=== PATIENT | male | born 1965 | race Two or more races ===

== ENCOUNTER 2016-03-26 09:27 | Inpatient (IN) | payer OTHER ==
[2016-03-26] MEDS ORDERED: ONDANSETRON 4 MG/2 ML VIAL ONE ×3 (09:47→17:05)
[2016-03-26] MEDS ORDERED: ONDANSETRON 4 MG/2 ML VIAL IVPUSH ONE ×2 (10:06→17:08)
[2016-03-26] MEDS ORDERED: SODIUM CHLORIDE 500 ML IV STA (10:08)
[2016-03-26] MEDS ORDERED: morphine CARPU-JECT 4 MG/1 ML DISP.SYRIN IVPUSH ONE ×3 (10:09→17:08)
[2016-03-26] MEDS ORDERED: morphine CARPU-JECT 4 MG/1 ML DISP.SYRIN ONE ×3 (10:11→17:09)
--- NOTE | 2016-03-26 10:31 | PDOC ---
History of Present Illness <ObedRon - Last Filed: 03/26/16 16:11> - General History Source: Patient Exam Limitations: No Limitations - History of Present Illness Initial Comments: 03/26/16 10:31 The patient is a 50 year old male with significant past medical history of hypertension, diabetes, CAD s/p CABG, and ESRD on dialysis () who presents today with nausea, vomiting, and diarrhea for 1 day. The patient reports that the nausea started yesterday and has been constant since. He reports multiple episodes of vomiting both yesterday and today with associated diarrhea that started this morning. The patient denies any blood in his vomit or stool. He reports associated abdominal pain localized to the suprapubic region that is sharp and constant in nature. His pain is non-radiating. The patient denies fevers but reports chills and night sweats last night. He denies any chest pain or shortness of breath. He denies any headache, sore throat, or cough. He denies any recent sick contacts, recent travels, or recent antibiotic use. The patient denies consuming new or unusual food. He has not taken anything for pain. PMD: Dr. Yamilka Hernandez <RegisHemalLatrice - Last Filed: 03/26/16 16:27> - General Chief Complaint: Pain, Acute Stated Complaint: NAUSEA/VOMITING Time Seen by Provider: 03/26/16 09:56 Past History - Past Medical History Anemia: Yes Asthma: No Cancer: No Cardiac Disorders: Yes CVA: No COPD: No CHF: Yes Dementia: No Diabetes: Yes Dialysis: Yes () GI Disorders: No Disorders: No HTN: Yes Hypercholesterolemia: Yes Liver Disease: No Suicide Attempt (Hx): No Seizures: No Thyroid Disease: No - Surgical History Abdominal Surgery: No Appendectomy: No Cardiac Surgery: Yes (DOUBLE BYPASS.) Cholecystectomy: No Lung Surgery: No Orthopedic Surgery: Yes (amputation of all toes on left foot) - Family Disease History Family Disease History: Diabetes: Mother, Heart Disease: Father - Immunization History Immunization Up to Date: Yes - Psycho/Social/Smoking Cessation Hx Anxiety: No Suicidal Ideation: No Smoking Status: No Smoking History: Former smoker Years of Tobacco Use: 0 Have you smoked in the past 12 months: No Number of Cigarettes Smoked Daily: 2 If you are a former smoker, when did you quit?: 1985 Cigars Per Day: 0 Information on smoking cessation initiated: No 'Breaking Loose' booklet given: 06/04/12 Hx Alcohol Use: No Drug/Substance Use Hx: No Substance Use Type: None Hx Substance Use Treatment: No <Ron Clay - Last Filed: 03/26/16 16:11> <RegisLatrice - Last Filed: 03/26/16 16:27> - Past Medical History Allergies/Adverse Reactions: Allergies Allergy/AdvReac Type Severity Reaction Status Date / Time No Known Drug Allergies Allergy Verified 03/26/16 09:41 Home Medications: Ambulatory Orders Aspirin [ASA -] 81 mg PO DAILY 11/13/14 Isosorbide Mononitrate [Imdur -] 30 mg PO DAILY 11/13/14 Lisinopril [Prinivil] 5 mg PO DAILY 11/13/14 Pantoprazole Sodium [Protonix] 20 mg PO BID #20 tablet. 02/13/15 Atorvastatin Ca [Lipitor] 80 mg PO HS tablet 12/22/15 Nifedipine ER [Procardia XL -] 60 mg PO DAILY tab.er.24 12/22/15 Albuterol 0.083% Nebulizer Apryl [Ventolin 0.083% Nebulizer Soln -] 1 amp NEB QID PRN 03/26/16 Bisacodyl [Laxative] 5 mg PO BID 03/26/16 Cyclobenzaprine HCl [Flexeril -] 5 mg PO TID 03/26/16 Daptomycin 500 mg IV ASDIR 03/26/16 Ferrous Sulfate 325 mg PO BID 03/26/16 Furosemide [Lasix] 80 mg PO DAILY 03/26/16 Hydralazine HCl [Apresoline -] 100 mg PO TID 03/26/16 Hydromorphone [Dilaudid -] 4 mg PO Q6H 03/26/16 Insulin Glargine,Hum.rec.anlog [Lantus (nf)] 15 units SQ HS 03/26/16 Lidocaine 5% Patch [Lidoderm Patch -] 1 patch TP DAILY 03/26/16 Magnesium Oxide 400 mg PO TID 03/26/16 Metoprolol Succinate [Toprol Xl] 100 mg PO DAILY 03/26/16 Nitroglycerin Sublingual [Nitrostat -] 0.4 mg SL PRN 03/26/16 Oxycodone HCl [Roxicodone -] 40 mg PO TID PRN MDD 4 03/26/16 Polyethylene Glycol 3350 [Gavilax] 17 gm PO HS 03/26/16 Sevelamer Carbonate [Renvela] 800 mg PO TID 03/26/16 Tamsulosin HCl [Flomax] 0.4 mg PO HS 03/26/16 Review of Systems - Review of Systems Able to Perform ROS?: Yes Comments:: 03/26/16 10:44 GENERAL/CONSTITUTIONAL: +Chills. No fever, no weakness. HEAD, EYES, EARS, NOSE AND THROAT: No change in vision. No ear pain or discharge. No sore throat. CARDIOVASCULAR: No chest pain or shortness of breath. RESPIRATORY: No cough, wheezing, or hemoptysis. GASTROINTESTINAL: +Abdominal pain, +nausea, +vomiting, +diarrhea. No constipation. GENITOURINARY: No dysuria, frequency, or change in urination. MUSCULOSKELETAL: No joint or muscle swelling or pain. No neck or back pain. SKIN: No rash NEUROLOGIC: No headache, vertigo, loss of consciousness, or change in strength/ sensation. ENDOCRINE: No increased thirst. No abnormal weight change. HEMATOLOGIC/LYMPHATIC: No anemia, easy bleeding, or history of blood clots. ALLERGIC/IMMUNOLOGIC: No hives or skin allergy. <Latrice Stacy - Last Filed: 03/26/16 16:27> *Physical Exam - Vital Signs Last Vital Signs Temp Pulse Resp BP Pulse Ox 97.9 F 82 18 196/101 96 03/26/16 09:39 03/26/16 09:39 03/26/16 09:39 03/26/16 09:39 03/26/16 09:39 <Ron Clay - Last Filed: 03/26/16 16:11> - Vital Signs Last Vital Signs Temp Pulse Resp BP Pulse Ox 97.9 F 82 18 196/101 96 03/26/16 09:39 03/26/16 09:39 03/26/16 09:39 03/26/16 09:39 03/26/16 09:39 - Physical Exam Comments: 03/26/16 10:44 GENERAL: Awake, alert, and fully oriented, in no acute distress HEAD: No signs of trauma EYES: PERRLA, EOMI, sclera anicteric, conjunctiva clear ENT: Auricles normal inspection, hearing grossly normal, nares patent, oropharynx clear without exudates. +Dry mucosa NECK: Normal ROM, supple, no lymphadenopathy, JVD, or masses LUNGS: Breath sounds equal, clear to auscultation bilaterally. No wheezes, and no crackles HEART: Regular rate and rhythm, normal S1 and S2, no murmurs, rubs or gallops ABDOMEN: +Diffuse tenderness to palpation, worse in right upper quadrant. No guarding, no rebound. Soft, normoactive bowel sounds. No masses. EXTREMITIES: Normal range of motion, no edema. No clubbing or cyanosis. No cords, erythema, or tenderness NEUROLOGICAL: Cranial nerves II through XII grossly intact. Normal speech, normal gait SKIN: Warm, Dry, normal turgor, no rashes or lesions noted. <Latrice Stacy - Last Filed: 03/26/16 16:27> Heart Score/ECG Review - ECG Intrepretation Comment:: 03/26/16 10:32 Vent rate: 84 bpm WI interval: 170ms QRS duration: 90ms Normal sinus rhythm Left axis deviation <Latrice Stacy - Last Filed: 03/26/16 16:27> ED Treatment Course - LABORATORY CBC & Chemistry Diagram: 03/26/16 10:16 03/26/16 10:16 - Medications Given in the ED: ED Medications Discontinued Medications Generic Name Dose Route Start Last Admin Trade Name Freq PRN Reason Stop Dose Admin Morphine Sulfate 4 mg 03/26/16 10:03/26/16 10:17 Morphine Injection - IVPUSH 03/26/16 10:10 4 mg ONCE ONE Administration Ondansetron HCl 4 mg 03/26/16 10:06 03/26/16 10:17 Zofran Injection IVPUSH 03/26/16 10:07 4 mg ONCE ONE Administration <Ron Clay - Last Filed: 03/26/16 16:11> - LABORATORY CBC & Chemistry Diagram: 03/26/16 10:16 03/26/16 10:16 - Medications Given in the ED: ED Medications Discontinued Medications Generic Name Dose Route Start Last Admin Trade Name Freq PRN Reason Stop Dose Admin Morphine Sulfate 4 mg 03/26/16 10:09 03/26/16 10:17 Morphine Injection - IVPUSH 03/26/16 10:10 4 mg ONCE ONE Administration Ondansetron HCl 4 mg 03/26/16 10:06 03/26/16 10:17 Zofran Injection IVPUSH 03/26/16 10:07 4 mg ONCE ONE Administration <Latrice Stacy - Last Filed: 03/26/16 16:27> Medical Decision Making - Medical Decision Making 03/26/16 12:22 50 yo M with pmhx of hypertension, diabetes, CAD s/p CABG, and ESRD on dialysis (//) who presents today with 1 day history of nausea, vomiting, and diarrhea. On exam, patients abdomen tender to palpation, especially on the right side, RUQ>RLQ. Will order US of gallbladder. If negative, will consider CT abdomen pelvis w/o contrast. 03/26/16 15:[address] Hernandez's office. 03/26/16 16:[address] Pickett covering for Dr. Hernandez. Patient will be admitted to Dr. Pickett service. Case discussed with Dr. Hurley covering for Dr. Yina Palomo. The patient has not had any recent abx (orally, IV, or with dialysis). <Latrice Satcy - Last Filed: 03/26/16 16:27> *DC/Admit/Observation/Transfer - Discharge Dispostion Admit: Yes <Ron Clay - Last Filed: 03/26/16 16:11> - Attestations Scribe Attestion: 03/26/16 10:32 Documentation prepared by Latrice Stacy, acting as vice president medical affairs for Ron Clay DO. <Latrice Stacy - Last Filed: 03/26/16 16:27> Diagnosis at time of Disposition: Acute gastroenteritis, Dehydration, ESRD on hemodialysis - Discharge Dispostion Condition at time of disposition: Improved - Referrals Referrals: Yamilka Hernandez MD [Primary Care Provider] -
--- NOTE | 2016-03-26 10:36 | CON.CARD ---
Consult Consult Specialty:: Cardiology - History of Present Illness History of Present Illness: The patient is a 50 year old male with significant past medical history of hypertension, diabetes, and ESRD on dialysis (//) who presents today with nausea, vomiting, and diarrhea for 1 day. The patient reports that the nausea started yesterday and has been constant since. He reports multiple episodes of vomiting both yesterday and today with associated diarrhea that started this morning. The patient denies any blood in his vomit or stool. He reports associated abdominal pain localized to the suprapubic region that is sharp and constant in nature. His pain is non-radiating. The patient denies fevers but reports chills and night sweats last night. He denies any chest pain or shortness of breath. He denies any headache, sore throat, or cough. He denies any recent sick contacts, recent travels, or recent antibiotic use. The patient denies consuming new or unusual food. He has not taken anything for pain. PMH This is a 50 year old male with a history of ESRD on HD Thu/Thu/Thu, CAD s/p CABG, chronic systolic/diastolic CHF (ECHO 06/2015: borderline reduced LVEF with borderline global hypokinesis; diastolic dysfunction), HTN, IDDM, PVD, osteomyelitis of the left foot s/p transmetatarsal amputation in May 2015 - History Source History Provided By: Patient, Medical Record - Past Medical History Cardio/Vascular: Yes: CAD, CHF (normal ejection fraction; poor LV compliance; no valvular abnormalities), HTN, Hyperlipdemia. No: AFIB, Aneurysm, Aortic Insufficiency, Aortic Stenosis, Deep Vein Thrombosis, VA, Mitral Insufficiency, Mitral Stenosis, Murmur, Pulmonary Hypertension, Other Gastrointestinal: Yes: GERD, GI Bleed. No: Ascites, Cancer, Constipation, Crohn 's Disease, Diverticulitis, Diverticulosis, Esophageal Varices, Gastritis, Hemorrhoids, Hiatal Hernia, Inflamatory Bowel Disease, Irritable Bowel Disease, Pancreatitis, Peptic Ulcer Disease, Ulcerative Colitis, Other Renal/: Yes: Renal Failure, Hemodialysis (ESRD on HD MWF via L arm AVF) Psych: Yes: Anxiety Musculoskeletal: Yes: Other (left metatarsal amputation). No: Bursitis, Chronic low back pain, Hemiparesis, Hemiplegia, Osteoarthritis, Paraplegia Rheumatology: Yes: Gout Endocrine: Yes: Diabetes Mellitus. No: Mickey's Disease, Naoma's Disease, Diabetes Insipidus, Hyperparathyroidism, Hyperthyroidism, Hypothyroidism, Osteopenia, SIADH, Other Additional Medical History: as above in HPI; L eye blindness; on renal transplant list at [facility]. bilateral detached retinas - Past Surgical History Past Surgical History: Yes: Amputation (Left Transmetatarsal), AV Fistula/Graft , CABG (05/2010), Stent (s/p cardiac cath with stent placement). No: None, AAA Repair, AICD, Appendectomy, Arthrosocopy, Bariatric Surgery, Breast Biopsy, Bypass, Carotid Endarterectomy, Cataract Removal, Cholecystectomy, Colectomy, Colonoscopy, Colostomy, Craniotomy, , Cystectomy, Hernia Repair, Hysterectomy, Ileal Conduit, Ileosotomy, Joint Replacement, Kidney Transplant, Laminectomy, Liver Transplant, Mastectomy, Nephrectomy, Oopherectomy, Orchiectomy, Permanent Pacemaker, Prostatectomy, Splenectomy, Thoracotomy, TURP , Tonsillectomy, Tubal Ligation, Upper Endoscopy, Valve Replacement, Vasectomy, Vein Stripping/Ligation - Alcohol/Substance Use Hx Alcohol Use: No History of Substance Use: reports: None - Smoking History Smoking history: Former smoker Have you smoked in the past 12 months: No Aproximately how many cigarettes per day: 2 If you are a former smoker, when did you quit?: 1984 - Social History Usual Living Arrangement: With Spouse ADL: Independent 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 History of Recent Travel: No Home Medications - Allergies Allergies/Adverse Reactions: Allergies Allergy/AdvReac Type Severity Reaction Status Date / Time No Known Drug Allergies Allergy Verified 03/26/16 09:41 - Home Medications Home Medications: Ambulatory Orders Aspirin [ASA -] 81 mg PO DAILY 11/13/14 Isosorbide Mononitrate [Imdur -] 30 mg PO DAILY 11/13/14 Lisinopril [Prinivil] 5 mg PO DAILY 11/13/14 Pantoprazole Sodium [Protonix] 20 mg PO BID #20 tablet.dr 02/13/15 Atorvastatin Ca [Lipitor] 80 mg PO HS tablet 12/22/15 Nifedipine ER [Procardia XL -] 60 mg PO DAILY tab.er.24 12/22/15 Albuterol 0.083% Nebulizer Apryl [Ventolin 0.083% Nebulizer Soln -] 1 amp NEB QID PRN 03/26/16 Bisacodyl [Laxative] 5 mg PO BID 03/26/16 Ferrous Sulfate 325 mg PO BID 03/26/16 Furosemide [Lasix] 80 mg PO DAILY 03/26/16 Hydralazine HCl [Apresoline -] 100 mg PO TID 03/26/16 Insulin Glargine,Hum.rec.anlog [Lantus (nf)] 15 units SQ HS 03/26/16 Magnesium Oxide 400 mg PO TID 03/26/16 Metoprolol Succinate [Toprol Xl] 100 mg PO DAILY 03/26/16 Oxycodone HCl [Roxicodone -] 40 mg PO TID PRN MDD 4 03/26/16 Sevelamer Carbonate [Renvela] 800 mg PO TID 03/26/16 Tamsulosin HCl [Flomax] 0.4 mg PO HS 03/26/16 Family Disease History - Family Disease History Family Disease History: Diabetes: Father, Mother, Other: Father, Mother Review of Systems - Review of Systems Constitutional: reports: No Symptoms Eyes: reports: No Symptoms HENT: reports: No Symptoms Neck: reports: No Symptoms Cardiovascular: reports: No Symptoms Gastrointestinal: reports: No Symptoms, Abdominal Pain, Nausea, Vomiting Genitourinary: reports: No Symptoms Breasts: reports: No Symptoms Reported Musculoskeletal: reports: No Symptoms Integumentary: reports: No Symptoms Neurological: reports: No Symptoms Endocrine: reports: No Symptoms Hematology/Lymphatic: reports: No Symptoms Psychiatric: reports: No Symptoms Vital Signs: Vital Signs Temperature 97.9 F 03/26/16 09:39 Pulse Rate 82 03/26/16 09:39 Respiratory Rate 18 03/26/16 09:39 Blood Pressure 196/101 03/26/16 09:39 O2 Sat by Pulse Oximetry (%) 96 03/26/16 09:39 Constitutional: Yes: Well Nourished, No Distress, Calm Eyes: Yes: WNL, Conjunctiva Clear, EOM Intact HENT: Yes: WNL, Atraumatic, Normocephalic Neck: Yes: WNL, Supple, Trachea Midline Respiratory: Yes: WNL, Regular, CTA Bilaterally Gastrointestinal: Yes: WNL, Normal Bowel Sounds Renal/: Yes: WNL Cardiovascular: Yes: WNL, Regular Rate and Rhythm Musculoskeletal: Yes: WNL Extremities: Yes: WNL (tma), Amputation Integumentary: Yes: WNL Neurological: Yes: WNL, Alert, Oriented ...Motor Strength: WNL Psychiatric: Yes: WNL, Alert, Oriented Imaging - Results Chest X-ray: Pending, Image Reviewed EKG: Image Reviewed (sr old ant septal mi) Problem List - Problems (1) Conjunctivitis Code(s): H10.9 - UNSPECIFIED CONJUNCTIVITIS (2) Diabetes mellitus Code(s): E11.9 - TYPE 2 DIABETES MELLITUS WITHOUT COMPLICATIONS Qualifiers: Diabetes mellitus type: type 2 Diabetes mellitus complication status: with kidney complications Diabetes mellitus complication detail: with chronic kidney disease (3) Elevated cholesterol Code(s): E78.0 - PURE HYPERCHOLESTEROLEMIA * DO NOT USE * (4) Elevated troponin I level Code(s): R79.89 - OTHER SPECIFIED ABNORMAL FINDINGS OF BLOOD CHEMISTRY (5) Epistaxis Code(s): R04.0 - EPISTAXIS (6) Hyperkalemia Code(s): E87.5 - HYPERKALEMIA (7) Influenza Code(s): J11.1 - FLU DUE TO UNIDENTIFIED INFLUENZA VIRUS W OTH RESP MANIFEST (8) Pain Code(s): R52 - PAIN, UNSPECIFIED (9) Pneumonia Code(s): J18.9 - PNEUMONIA, UNSPECIFIED ORGANISM Qualifiers: Pneumonia type: due to unspecified organism (10) Posterior neck pain Code(s): M54.2 - CERVICALGIA (11) Sepsis Code(s): A41.9 - SEPSIS, UNSPECIFIED ORGANISM Qualifiers: Sepsis type: sepsis due to unspecified organism Qualified Code(s): A41.9 - Sepsis, unspecified organism (12) Systolic and diastolic CHF, chronic Code(s): I50.42 - CHRONIC COMBINED SYSTOLIC AND DIASTOLIC HRT FAIL (13) Upper abdominal pain Code(s): R10.10 - UPPER ABDOMINAL PAIN, UNSPECIFIED (14) Nausea & vomiting Code(s): 787.01 - NAUSEA WITH VOMITING (15) Anemia in ESRD (end-stage renal disease) Code(s): N18.6 - END STAGE RENAL DISEASE D63.1 - ANEMIA IN CHRONIC KIDNEY DISEASE (16) Atypical chest pain Code(s): R07.89 - OTHER CHEST PAIN (17) Back pain Code(s): M54.9 - DORSALGIA, UNSPECIFIED (18) Bacteremia Code(s): R78.81 - BACTEREMIA (19) Bacteremia due to Gram-positive bacteria Code(s): A49.9 - BACTERIAL INFECTION, UNSPECIFIED (20) Bleeding Code(s): R58 - HEMORRHAGE, NOT ELSEWHERE CLASSIFIED (21) CAD (coronary artery disease) Code(s): I25.10 - ATHSCL HEART DISEASE OF [place] CORONARY ARTERY W/O ANG PCTRS (22) CHF (congestive heart failure) Code(s): I50.9 - HEART FAILURE, UNSPECIFIED (23) CRF (chronic renal failure) Code(s): N18.9 - CHRONIC KIDNEY DISEASE, UNSPECIFIED (24) Chest pain Code(s): R07.9 - CHEST PAIN, UNSPECIFIED (25) Chest pain, midsternal Code(s): R07.89 - OTHER CHEST PAIN (26) DM (diabetes mellitus), type 2 with renal complications Code(s): E11.29 - TYPE 2 DIABETES MELLITUS W OTH DIABETIC KIDNEY COMPLICATION Qualifiers: Diabetes mellitus complication detail: with chronic kidney disease Chronic kidney disease stage: on chronic dialysis (27) DVT prophylaxis Code(s): NMR1303 - (28) Depression Code(s): F32.9 - MAJOR DEPRESSIVE DISORDER, SINGLE EPISODE, UNSPECIFIED (29) Diabetes mellitus with foot ulcer and gangrene Code(s): E11.621 - TYPE 2 DIABETES MELLITUS WITH FOOT ULCER L97.509 - NON-PRESSURE CHRONIC ULCER OT PRT UNSP FOOT W UNSP SEVERITY (30) Diastolic CHF Code(s): I50.30 - UNSPECIFIED DIASTOLIC (CONGESTIVE) HEART FAILURE (31) ESRD (end stage renal disease) Code(s): N18.6 - END STAGE RENAL DISEASE (32) ESRD (end stage renal disease) on dialysis Code(s): N18.6 - END STAGE RENAL DISEASE Z99.2 - DEPENDENCE ON RENAL DIALYSIS (33) ESRD needing dialysis Code(s): N18.6 - END STAGE RENAL DISEASE (34) ESRD on hemodialysis Code(s): N18.6 - END STAGE RENAL DISEASE Z99.2 - DEPENDENCE ON RENAL DIALYSIS (35) Epigastric abdominal pain Code(s): R10.13 - EPIGASTRIC PAIN (36) GERD (gastroesophageal reflux disease) Code(s): K21.9 - GASTRO-ESOPHAGEAL REFLUX DISEASE WITHOUT ESOPHAGITIS (37) Gout Code(s): M10.9 - GOUT, UNSPECIFIED (38) History of hyperkeratosis of skin Code(s): Z87.2 - PERSONAL HISTORY OF DISEASES OF THE SKIN, SUBCU (39) Hyperglycemia Code(s): R73.9 - HYPERGLYCEMIA, UNSPECIFIED (40) Hyperlipemia Code(s): E78.5 - HYPERLIPIDEMIA, UNSPECIFIED (41) Hyperphosphatemia Code(s): E83.39 - OTHER DISORDERS OF PHOSPHORUS METABOLISM (42) Hypertension Code(s): I10 - ESSENTIAL (PRIMARY) HYPERTENSION Qualifiers: Hypertension type: essential hypertension Qualified Code(s): I10 - Essential (primary) hypertension (43) Hypomagnesemia Code(s): E83.42 - HYPOMAGNESEMIA (44) Hyponatremia Code(s): E87.1 - HYPO-OSMOLALITY AND HYPONATREMIA (45) Hypotension of hemodialysis Code(s): I95.3 - HYPOTENSION OF HEMODIALYSIS (46) MRSA bacteremia Code(s): R78.81 - BACTEREMIA (47) MSSA (methicillin susceptible Staphylococcus aureus) infection Code(s): A49.01 - METHICILLIN SUSCEP STAPH INFECTION, UNSP SITE (48) Open wound of left foot Code(s): S91.302A - UNSPECIFIED OPEN WOUND, LEFT FOOT, INITIAL ENCOUNTER Qualifiers: Encounter type: subsequent encounter Qualified Code(s): S91.302D - Unspecified open wound, left foot, subsequent encounter (49) Osteomyelitis of cervical spine Code(s): M46.22 - OSTEOMYELITIS OF [place], CERVICAL REGION (50) Renal failure Code(s): N19 - UNSPECIFIED KIDNEY FAILURE (51) S/P CABG (coronary artery bypass graft) Code(s): Z95.1 - PRESENCE OF AORTOCORONARY BYPASS GRAFT (52) Stented coronary artery Code(s): Z95.5 - PRESENCE OF CORONARY ANGIOPLASTY IMPLANT AND GRAFT (53) Uncontrolled diabetes mellitus Code(s): E11.65 - TYPE 2 DIABETES MELLITUS WITH HYPERGLYCEMIA (54) Urinary tract infection Code(s): N39.0 - URINARY TRACT INFECTION, SITE NOT SPECIFIED (55) Wound infection Code(s): T14.8 - OTHER INJURY OF UNSPECIFIED BODY REGION L08.9 - LOCAL INFECTION OF THE SKIN AND SUBCUTANEOUS TISSUE, UNSP Assessment/Plan esrd ashd s/p cabg s/p pci chf PVD abd pain nosea and vomitting plan gI evaluation labs P echo hd cardiac penny stable
[2016-03-26 10:54] LABS: BASOPHIL 1.4 % (0-2.0); EOSINOPHIL 7.7 % (0-4.5); MCH 28.2 pg (25.7-33.7); MCHC 31.9 g/dl (32.0-35.9); MEAN CELL VOLUME 88.4 fl (80-96); MEAN PLT VOLUME 7.7 fl (7.5-11.1); NEUTROPHILS 76.8 % (42.8-82.8); PLATELET COUNT 396 K/MM3 (134-434); RDW 19.2 % (11.9-15.9); WHITE BLOOD COUNT 9.1 K/mm3 (4.0-10.0)
[2016-03-26 11:23] LABS: CALCIUM 8.6 mg/dL (8.5-10.1); CREATININE 5.3 mg/dL (0.7-1.3)
[2016-03-26 11:26] LABS: BILIRUBIN,TOTAL 0.6 mg/dL (0.2-1.0); TOT PROT 8.5 g/dl (6.4-8.2)
[2016-03-26 11:28] LABS: INR 1.12 (0.82-1.09); PROTHROMBIN TIME (PATIENT) 12.4 SEC (9.98-11.88)
[2016-03-26] MEDS ORDERED: METOPROLOL TARTRATE 50 MG TABLET (FP) PO ONE (16:46)
[2016-03-26] MEDS ORDERED: hydrALAZINE HCL 50 MG TABLET (FP) PO ONE (16:46)
[2016-03-26] MEDS ORDERED: METOPROLOL SUCCINATE 50 MG TAB.SR.24H (FP) ONE (17:01)
[2016-03-26] MEDS ORDERED: hydrALAZINE HCL 25 MG TABLET (FP) ONE (17:02)
[2016-03-26 18:34] VITALS: BMI 28.3
--- NOTE | 2016-03-26 20:43 | HP ---
Admitting History and Physical - Primary Care Physician PCP: Dr Sangeetha Nolan([facility]) - Admission Chief Complaint: Vomitting/ loose stoools/ Abd apin History of Present Illness: The patient is a 50 year old male with significant past medical history of hypertension, diabetes, and ESRD on dialysis (//) who presents today with nausea, vomiting, and diarrhea for 1 day. The patient reports that the nausea started yesterday and has been constant since. He reports multiple episodes of vomiting both yesterday and today with associated diarrhea that started this morning. The patient denies any blood in his vomit or stool. He reports associated abdominal pain localized to the suprapubic region that is sharp and constant in nature. His pain is non-radiating. The patient denies fevers but reports chills and night sweats last night. He denies any chest pain or shortness of breath. He denies any headache, sore throat, or cough. He denies any recent sick contacts, recent travels, or recent antibiotic use. The patient denies consuming new or unusual food. He has not taken anything for pain. History Source: Patient, Medical Record Limitations to Obtaining History: No Limitations - Past Medical History Cardiovascular: Yes: CAD, CHF (normal ejection fraction; poor LV compliance; no valvular abnormalities), HTN, Hyperlipdemia. No: AFIB, Aneurysm, Aortic Insufficiency, Aortic Stenosis, Deep Vein Thrombosis, CA, Mitral Insufficiency, Mitral Stenosis, Murmur, Pulmonary Hypertension, Other Gastrointestinal: Yes: GERD, GI Bleed. No: Ascites, Cancer, Constipation, Crohn 's Disease, Diverticulitis, Diverticulosis, Esophageal Varices, Gastritis, Hemorrhoids, Hiatal Hernia, Inflamatory Bowel Disease, Irritable Bowel Disease, Pancreatitis, Peptic Ulcer Disease, Ulcerative Colitis, Other Renal/: Yes: Renal Failure, Hemodialysis (ESRD on HD MWF via L arm AVF) Heme/Onc: No: Anemia, B12 Deficiency, Bleeding Disorder, Cancer, Current Chemotherapy, Current Radiation Therapy, Hemochromatosis, Hypercoaguable State, Myeloproliferative Synd, Sickle Cell Disease, Sickle Cell Trait, Thrombocytopenia, Other Psych: Yes: Anxiety Musculoskeletal: Yes: Other (left metatarsal amputation). No: Bursitis, Chronic low back pain, Hemiparesis, Hemiplegia, Osteoarthritis, Paraplegia Rheumatology: Yes: Gout Endocrine: Yes: Diabetes Mellitus. No: Andrew's Disease, [place]'s Disease, Diabetes Insipidus, Hyperparathyroidism, Hyperthyroidism, Hypothyroidism, Osteopenia, SIADH, Other - Past Surgical History Past Surgical History: Yes: Amputation (Left Transmetatarsal), AV Fistula/Graft , CABG (05/2010), Stent (s/p cardiac cath with stent placement). No: None, AAA Repair, AICD, Appendectomy, Arthrosocopy, Bariatric Surgery, Breast Biopsy, Bypass, Carotid Endarterectomy, Cataract Removal, Cholecystectomy, Colectomy, Colonoscopy, Colostomy, Craniotomy, , Cystectomy, Hernia Repair, Hysterectomy, Ileal Conduit, Ileosotomy, Joint Replacement, Kidney Transplant, Laminectomy, Liver Transplant, Mastectomy, Nephrectomy, Oopherectomy, Orchiectomy, Permanent Pacemaker, Prostatectomy, Splenectomy, Thoracotomy, TURP , Tonsillectomy, Tubal Ligation, Upper Endoscopy, Valve Replacement, Vasectomy, Vein Stripping/Ligation - Smoking History Smoking history: Former smoker Have you smoked in the past 12 months: No Aproximately how many cigarettes per day: 2 If you are a former smoker, when did you quit?: 1984 - Alcohol/Substance Use Hx Alcohol Use: No History of Substance Use: reports: None - Social History ADL: Independent 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 History of Recent Travel: No Home Medications - Allergies Allergies/Adverse Reactions: Allergies Allergy/AdvReac Type Severity Reaction Status Date / Time No Known Drug Allergies Allergy Verified 03/26/16 09:41 - Home Medications Home Medications: Ambulatory Orders Aspirin [ASA -] 81 mg PO DAILY 11/13/14 Isosorbide Mononitrate [Imdur -] 30 mg PO DAILY 11/13/14 Lisinopril [Prinivil] 5 mg PO DAILY 11/13/14 Pantoprazole Sodium [Protonix] 20 mg PO BID #20 tablet.dr 02/13/15 Atorvastatin Ca [Lipitor] 80 mg PO HS tablet 12/22/15 Nifedipine ER [Procardia XL -] 60 mg PO DAILY tab.er.24 12/22/15 Albuterol 0.083% Nebulizer Apryl [Ventolin 0.083% Nebulizer Soln -] 1 amp NEB QID PRN 03/26/16 Bisacodyl [Laxative] 5 mg PO BID 03/26/16 Cyclobenzaprine HCl [Flexeril -] 5 mg PO TID 03/26/16 Daptomycin 500 mg IV ASDIR 03/26/16 Ferrous Sulfate 325 mg PO BID 03/26/16 Furosemide [Lasix] 80 mg PO DAILY 03/26/16 Hydralazine HCl [Apresoline -] 100 mg PO TID 03/26/16 Hydromorphone [Dilaudid -] 4 mg PO Q6H 03/26/16 Insulin Glargine,Hum.rec.anlog [Lantus (nf)] 15 units SQ HS 03/26/16 Lidocaine 5% Patch [Lidoderm Patch -] 1 patch TP DAILY 03/26/16 Magnesium Oxide 400 mg PO TID 03/26/16 Metoprolol Succinate [Toprol Xl] 100 mg PO DAILY 03/26/16 Nitroglycerin Sublingual [Nitrostat -] 0.4 mg SL PRN 03/26/16 Oxycodone HCl [Roxicodone -] 40 mg PO TID PRN MDD 4 03/26/16 Polyethylene Glycol 3350 [Gavilax] 17 gm PO HS 03/26/16 Sevelamer Carbonate [Renvela] 800 mg PO TID 03/26/16 Tamsulosin HCl [Flomax] 0.4 mg PO HS 03/26/16 Family Disease History - Family Disease History Family Disease History: Diabetes: Father, Mother, Other: Father, Mother Review of Systems - Review of Systems Constitutional: reports: Weakness Neck: reports: No Symptoms Cardiovascular: reports: No Symptoms Respiratory: reports: No Symptoms Gastrointestinal: reports: Abdominal Pain, Diarrhea, Nausea, Vomiting Genitourinary: reports: No Symptoms Musculoskeletal: reports: Muscle Pain Neurological: reports: No Symptoms Physical Examination Vital Signs: Vital Signs Temperature 98.1 F 03/26/16 13:16 Pulse Rate 79 03/26/16 18:08 Respiratory Rate 18 03/26/16 18:08 Blood Pressure 167/91 03/26/16 18:08 O2 Sat by Pulse Oximetry (%) 97 03/26/16 18:08 Problem List - Problems (1) Acute gastroenteritis Code(s): K52.9 - NONINFECTIVE GASTROENTERITIS AND COLITIS, UNSPECIFIED (2) ESRD on hemodialysis Code(s): N18.6 - END STAGE RENAL DISEASE Z99.2 - DEPENDENCE ON RENAL DIALYSIS (3) Dehydration Code(s): E86.0 - DEHYDRATION
[2016-03-26] MEDS ORDERED: SODIUM CHLORIDE 0.45% 1,000 ML IV SCH (21:00)
[2016-03-26] MEDS ORDERED: NITROGLYCERIN SUBLINGUAL 1/150 0.4 MG TAB SL PRN (21:08)
[2016-03-26] MEDS ORDERED: METOPROLOL SUCCINATE 100 MG TAB.SR.24H (FP) PO ONE (21:08)
[2016-03-26] MEDS ORDERED: TAMSULOSIN HCL 0.4 MG CAP.ER.24H (FP) PO ONE (21:09)
[2016-03-26] MEDS ORDERED: morphine CARPU-JECT 4 MG/1 ML DISP.SYRIN IM PRN (21:27)
[2016-03-26] MEDS: ONDANSETRON 4 MG/2 ML VIAL IVPB SCH (21:41)
[2016-03-26] MEDS: CYCLOBENZAPRINE HCL 10 MG TABLET (FP) PO SCH (21:42)
[2016-03-26] MEDS: hydrALAZINE HCL 50 MG TABLET (FP) PO SCH (21:42)
[2016-03-26] MEDS: ATORVASTATIN CA 80 MG TABLET (FP) PO SCH (21:42)
[2016-03-27] MEDS: ONDANSETRON 4 MG/2 ML VIAL IVPB SCH ×4 (03:00→21:19)
[2016-03-27] MEDS: CYCLOBENZAPRINE HCL 10 MG TABLET (FP) PO SCH ×3 (06:19→21:19)
[2016-03-27] MEDS: hydrALAZINE HCL 50 MG TABLET (FP) PO SCH ×3 (06:19→21:19)
[2016-03-27 07:54] LABS: MCH 28.4 pg (25.7-33.7); MCHC 32.2 g/dl (32.0-35.9); MEAN CELL VOLUME 88.1 fl (80-96); MEAN PLT VOLUME 7.7 fl (7.5-11.1); PLATELET COUNT 308 K/MM3 (134-434); RDW 19.2 % (11.9-15.9); WHITE BLOOD COUNT 7.1 K/mm3 (4.0-10.0)
[2016-03-27] MEDS: FERROUS SO4 325 MG TABLET (FP) PO SCH ×2 (08:13→17:20)
[2016-03-27 08:34] LABS: ALBUMIN 2.8 g/dl (3.4-5.0); CALCIUM 8.6 mg/dL (8.5-10.1); CREATININE 6.4 mg/dL (0.7-1.3); PHOSPHOROUS 4.1 mg/dL (2.5-4.9)
[2016-03-27 08:35] LABS: BILIRUBIN,TOTAL 0.4 mg/dL (0.2-1.0); TOT PROT 7.5 g/dl (6.4-8.2)
[2016-03-27] MEDS: LISINOPRIL 5 MG TABLET (FP) PO SCH (09:06)
[2016-03-27] MEDS: PANTOPRAZOLE 40 MG TABLET (FP) PO SCH (09:06)
[2016-03-27] MEDS: FUROSEMIDE 40 MG TABLET (FP) PO SCH (09:06)
[2016-03-27] MEDS: LIDOCAINE 5% TOPICAL PATCH TP SCH (09:07)
--- NOTE | 2016-03-27 11:36 | PN ---
Progress Note (short form) - Note Progress Note: Renal Consult for ESRD on HD This is a 50 year old Gentleman with PMhx of ESRD on HD, DM, Hypertension, PVD recent admission at [facility] for Abcess in cervial spine requiring prolonged course of Abx presents with complaints of Nausea, diarrhea and Abd pain and admitted for acute gastroenteritis. Denies any fever or chills. Discharged from [facility] earlier this week. Was recently admitted to [facility] for fluid overload. Denies any Abd pain now. No further N/V. Currently on dialysis. No chest pain or sob. PMhx: as above Allergies: NKDA Family Hx: NC Social Hx: No T/A/D ROS: as per HPI, all other pertinent ros negative Home Meds: Medication Instructions Recorded Aspirin [ASA -] 81 mg PO DAILY 11/13/14 Isosorbide Mononitrate [Imdur -] 30 mg PO DAILY 11/13/14 Lisinopril [Prinivil] 5 mg PO DAILY 11/13/14 Pantoprazole Sodium [Protonix] 20 mg PO BID #20 tablet.dr 02/13/15 Atorvastatin Ca [Lipitor] 80 mg PO HS tablet 12/22/15 Nifedipine ER [Procardia XL -] 60 mg PO DAILY tab.er.24 12/22/15 Albuterol 0.083% Nebulizer Apryl 1 amp NEB QID PRN 03/26/16 [Ventolin 0.083% Nebulizer Soln -] Bisacodyl [Laxative] 5 mg PO BID 03/26/16 Cyclobenzaprine HCl [Flexeril -] 5 mg PO TID 03/26/16 DaptomycinGen: 500 mg IV ASDIR 03/26/16 Ferrous Sulfate 325 mg PO BID 03/26/16 Furosemide [Lasix] 80 mg PO DAILY 03/26/16 Hydralazine HCl [Apresoline -] 100 mg PO TID 03/26/16 Hydromorphone [Dilaudid -] 4 mg PO Q6H 03/26/16 Insulin Glargine,Hum.rec.anlog 15 units SQ HS 03/26/16 [Lantus (nf)] Lidocaine 5% Patch [Lidoderm Patch 1 patch TP DAILY 03/26/16 -] Magnesium Oxide 400 mg PO TID 03/26/16 Metoprolol Succinate [Toprol Xl] 100 mg PO DAILY 03/26/16 Nitroglycerin Sublingual 0.4 mg SL PRN 03/26/16 [Nitrostat -] Oxycodone HCl [Roxicodone -] 40 mg PO TID PRN MDD 4 03/26/16 Polyethylene Glycol 3350 [Gavilax] 17 gm PO 03/26/16 Sevelamer Carbonate [Renvela] 800 mg PO TID 03/26/16 Tamsulosin HCl [Flomax] 0.4 mg PO 03/26/16 Vital Signs Temperature 98.4 F 03/27/16 09:00 Pulse Rate 82 03/27/16 09:00 Respiratory Rate 20 03/27/16 09:00 Blood Pressure 152/88 03/27/16 09:00 O2 Sat by Pulse Oximetry (%) 97 03/26/16 18:08 Gen: NAD, awake and alert HEENT: NC/AT, MMM, No JVD, neck Supple CVS: RRR, No M/R Lungs: CTA, no rales or wheeze Abd: soft NT/ND Ext: Left TMA, No edema, clubbing or cyanosis : no bladder distension Neuro: AAOx3, no focal defects Access: AVF + thrill CBC, BMP 03/27/16 06:20 03/27/16 06:20 Current Medications Atorvastatin Calcium (Lipitor -) 80 mg PO HS [facility] Last Admin: 03/26/16 21:42 Dose: 80 mg Cyclobenzaprine HCl (Flexeril -) 5 mg PO TID [facility] Last Admin: 03/27/16 06:19 Dose: 5 mg Ferrous Sulfate (Feosol -) 325 mg PO BIDWM [facility] Last Admin: 03/27/16 08:13 Dose: 325 mg Furosemide (Lasix -) 80 mg PO DAILY [facility] Last Admin: 03/27/16 09:06 Dose: 80 mg Hydralazine HCl (Apresoline -) 50 mg PO TID [facility] Last Admin: 03/27/16 06:19 Dose: 50 mg Sodium Chloride (1/2 Normal Saline) 1,000 mls @ 50 mls/hr IV ASDIR [facility] Stop: 03/27/16 21:00 Last Admin: 03/26/16 21:41 Dose: 50 mls/hr Lidocaine (Lidoderm Patch -) 1 patch TP DAILY [facility] Last Admin: 03/27/16 09:07 Dose: 1 patch Lisinopril (Prinivil) 5 mg PO DAILY [facility] Last Admin: 03/27/16 09:06 Dose: 5 mg Morphine Sulfate (Morphine Injection -) 4 mg IM Q8H PRN PRN Reason: PAIN Stop: 03/27/16 21:26 Nitroglycerin (Nitrostat -) 0.4 mg SL Q5M PRN PRN Reason: FOR CHEST PAIN Ondansetron HCl (Zofran Injection) 4 mg IVPB Q6H [facility] Last Admin: 03/27/16 08:50 Dose: 4 mg Pantoprazole Sodium (Protonix -) 40 mg PO DAILY [facility] Last Admin: 03/27/16 09:06 Dose: 40 mg A/P 50 year old Gentleman with PMhx of ESRD on HD, DM, Hypertension, PVD recent admission at [facility] for Abcess in cervial spine requiring prolonged course of Abx presents with complaints of Nausea, diarrhea and Abd pain and admitted for acute gastroenteritis. #Abd pain/Nausea/Vomiting CT of the Abd/Pelvis w/o contrast showed no acute pathology On Zofran and Morphine Nausea and pain is now resolved continue management as per primary Can D/c IVF #ESRD on HD Pt currently on dialysis and tolerating it well Dose all meds for intermittent HD (TTS) #Recent Perivertebrial Abcess/Sepsis completed course of Dapto To follow up with Neuro-Sx as outpatient #Hypertension Continue Lisinopril and Hydralazine Thank you will continue to follow Antwan Hurley DO
--- NOTE | 2016-03-27 13:03 | PN ---
Progress Note, Physician Chief Complaint: Pt is undergoing hemodialysis; no chest pain or dyspnea. History of Present Illness: The patient is a 50 year old male with significant past medical history of hypertension, diabetes, CAD s/p CABG, diastolic CHF; HTN; hyperlipidemia; PAD; and ESRD on dialysis (//) who presents today with nausea, vomiting, and diarrhea for 1 day. The patient reports that the nausea started yesterday and has been constant since. He reports multiple episodes of vomiting both yesterday and today with associated diarrhea that started this morning. The patient denies any blood in his vomit or stool. He reports associated abdominal pain localized to the suprapubic region that is sharp and constant in nature. His pain is non-radiating. The patient denies fevers but reports chills and night sweats last night. He denies any chest pain or shortness of breath. He denies any headache, sore throat, or cough. He denies any recent sick contacts, recent travels; he was admitted to [facility] recently for at least a week (CHF; sepsis). The patient denies consuming new or unusual food. He has not taken anything for pain. PMD: Dr. Yamilka Hernandez - Current Medication List Current Medications: Active Medications Atorvastatin Calcium (Lipitor -) 80 mg PO HS [facility] Last Admin: 03/26/16 21:42 Dose: 80 mg Cyclobenzaprine HCl (Flexeril -) 5 mg PO TID [facility] Last Admin: 03/27/16 06:19 Dose: 5 mg Ferrous Sulfate (Feosol -) 325 mg PO BIDWM [facility] Last Admin: 03/27/16 08:13 Dose: 325 mg Furosemide (Lasix -) 80 mg PO DAILY [facility] Last Admin: 03/27/16 09:06 Dose: 80 mg Hydralazine HCl (Apresoline -) 50 mg PO TID [facility] Last Admin: 03/27/16 06:19 Dose: 50 mg Sodium Chloride (1/2 Normal Saline) 1,000 mls @ 50 mls/hr IV ASDIR [facility] Stop: 03/27/16 21:00 Last Admin: 03/26/16 21:41 Dose: 50 mls/hr Lidocaine (Lidoderm Patch -) 1 patch TP DAILY [facility] Last Admin: 03/27/16 09:07 Dose: 1 patch Lisinopril (Prinivil) 5 mg PO DAILY [facility] Last Admin: 03/27/16 09:06 Dose: 5 mg Morphine Sulfate (Morphine Injection -) 4 mg IM Q8H PRN PRN Reason: PAIN Stop: 03/27/16 21:26 Nitroglycerin (Nitrostat -) 0.4 mg SL Q5M PRN PRN Reason: FOR CHEST PAIN Ondansetron HCl (Zofran Injection) 4 mg IVPB Q6H [facility] Last Admin: 03/27/16 08:50 Dose: 4 mg Pantoprazole Sodium (Protonix -) 40 mg PO DAILY [facility] Last Admin: 03/27/16 09:06 Dose: 40 mg - Objective Vital Signs: Vital Signs Temperature 98.4 F 03/27/16 09:00 Pulse Rate 82 03/27/16 09:00 Respiratory Rate 20 03/27/16 09:00 Blood Pressure 152/88 03/27/16 09:00 O2 Sat by Pulse Oximetry (%) 97 03/26/16 18:08 Constitutional: Yes: Calm Eyes: Yes: WNL HENT: Yes: WNL Neck: Yes: WNL Cardiovascular: Yes: Regular Rate and Rhythm, S2 (split) Respiratory: Yes: Regular, Diminished (left base) Gastrointestinal: Yes: Soft ...Rectal Exam: Yes: Deferred Genitourinary: No: Anuria Breast(s): Yes: WNL Musculoskeletal: Yes: Muscle Weakness Extremities: Yes: Amputation, Cool Edema: No Peripheral Pulses WNL: No Peripheral Pulses: Left Doralis Pedis: 1+, Right Dorsalis Pedis: 1+ Integumentary: Yes: Bruising Neurological: Yes: Alert, Oriented, Weakness Psychiatric: Yes: WNL Labs: CBC, BMP 03/27/16 06:20 03/27/16 06:20 INR, PTT INR 1.12 (0.82-1.09) 03/26/16 10:16 Abnormal Lab Results 03/27/16 03/27/16 03/27/16 06:20 06:20 06:20 RBC 3.53 L Hgb 10.0 L D Hct 31.1 L RDW 19.2 H Sodium 135 L BUN 50 H D Creatinine 6.4 H D Random Glucose 177 H B-Natriuretic Peptide 70470.15 H Albumin 2.8 L HDL Cholesterol 31 L Lipase 64 L - ....Imaging Chest X-ray: Image Reviewed (LLL consolidation) Cat Scan: Image Reviewed (LLL atelectasis and consolidation) Problem List - Problems (1) 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 Assessment/Plan: treated recently at [facility] Code(s): G06.1 - INTRASPINAL ABSCESS AND GRANULOMA (2) Acute gastroenteritis Assessment/Plan: no further abdominal discomfort or nausea. Code(s): K52.9 - NONINFECTIVE GASTROENTERITIS AND COLITIS, UNSPECIFIED (3) Diabetes mellitus Code(s): E11.9 - TYPE 2 DIABETES MELLITUS WITHOUT COMPLICATIONS Qualifiers: Diabetes mellitus type: type 2 Diabetes mellitus complication status: with kidney complications Diabetes mellitus complication detail: with chronic kidney disease (4) ESRD on hemodialysis Code(s): N18.6 - END STAGE RENAL DISEASE Z99.2 - DEPENDENCE ON RENAL DIALYSIS (5) Elevated cholesterol Assessment/Plan: on atorvastatin 80 mg daily. Code(s): E78.0 - PURE HYPERCHOLESTEROLEMIA * DO NOT USE * (6) Hypertension Assessment/Plan: on hydralazine, lisinopril, and furosemide. Code(s): I10 - ESSENTIAL (PRIMARY) HYPERTENSION Qualifiers: Hypertension type: essential hypertension Qualified Code(s): I10 - Essential (primary) hypertension
--- NOTE | 2016-03-27 14:56 | PN ---
Progress Note, Physician Chief Complaint: Vomitting/ Abd pain Ptrecently Rx for Recent Perivertebrial Abcess/Sepsis completed course of Dapto To follow up with Neuro-Sx as outpatient History of Present Illness: Today Pt is not having Vomittings Pt is tolerating diet No loose stools Had HD today - Current Medication List Current Medications: Active Medications Atorvastatin Calcium (Lipitor -) 80 mg PO HS [facility] Last Admin: 03/26/16 21:42 Dose: 80 mg Cyclobenzaprine HCl (Flexeril -) 5 mg PO TID [facility] Last Admin: 03/27/16 14:24 Dose: 5 mg Ferrous Sulfate (Feosol -) 325 mg PO BIDWM [facility] Last Admin: 03/27/16 08:13 Dose: 325 mg Furosemide (Lasix -) 80 mg PO DAILY [facility] Last Admin: 03/27/16 09:06 Dose: 80 mg Hydralazine HCl (Apresoline -) 50 mg PO TID [facility] Last Admin: 03/27/16 14:24 Dose: 50 mg Sodium Chloride (1/2 Normal Saline) 1,000 mls @ 50 mls/hr IV ASDIR [facility] Stop: 03/27/16 21:00 Last Admin: 03/26/16 21:41 Dose: 50 mls/hr Lidocaine (Lidoderm Patch -) 1 patch TP DAILY [facility] Last Admin: 03/27/16 09:07 Dose: 1 patch Lisinopril (Prinivil) 5 mg PO DAILY [facility] Last Admin: 03/27/16 09:06 Dose: 5 mg Morphine Sulfate (Morphine Injection -) 4 mg IM Q8H PRN PRN Reason: PAIN Stop: 03/27/16 21:26 Nitroglycerin (Nitrostat -) 0.4 mg SL Q5M PRN PRN Reason: FOR CHEST PAIN Ondansetron HCl (Zofran Injection) 4 mg IVPB Q6H [facility] Last Admin: 03/27/16 14:27 Dose: 4 mg Pantoprazole Sodium (Protonix -) 40 mg PO DAILY [facility] Last Admin: 03/27/16 09:06 Dose: 40 mg - Objective Vital Signs: Vital Signs Temperature 98.2 F 03/27/16 09:50 Pulse Rate 72 03/27/16 14:00 Respiratory Rate 18 03/27/16 14:00 Blood Pressure 142/70 03/27/16 14:00 O2 Sat by Pulse Oximetry (%) 97 03/26/16 18:08 Constitutional: Yes: No Distress Eyes: Yes: Conjunctiva Clear HENT: Yes: Atraumatic, Normocephalic Neck: Yes: Supple, Trachea Midline Cardiovascular: Yes: Regular Rate and Rhythm, S1, S2 Respiratory: Yes: Regular, CTA Bilaterally Gastrointestinal: Yes: Normal Bowel Sounds, Soft Musculoskeletal: Yes: Joint Stiffness, Muscle Pain, Other (#Recent Perivertebrial Abcess/Sepsis completed course of Dapto To follow up with Neuro- Sx as outpatient) Extremities: Yes: Amputation (Lt TMA) Edema: No Peripheral Pulses WNL: No (PVD) Neurological: Yes: Alert, Oriented, Cran Nerves II-XII Intact, Other (#Recent Perivertebrial Abcess/Sepsis completed course of Dapto To follow up with Neuro- Sx as outpatient) Labs: CBC, BMP 03/27/16 06:20 03/27/16 06:20 INR, PTT INR 1.12 (0.82-1.09) 03/26/16 10:16 Problem List - Problems (1) Acute gastroenteritis Code(s): K52.9 - NONINFECTIVE GASTROENTERITIS AND COLITIS, UNSPECIFIED (2) ESRD on hemodialysis Code(s): N18.6 - END STAGE RENAL DISEASE Z99.2 - DEPENDENCE ON RENAL DIALYSIS (3) Dehydration Code(s): E86.0 - DEHYDRATION (4) 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A (5) Diabetes mellitus Code(s): E11.9 - TYPE 2 DIABETES MELLITUS WITHOUT COMPLICATIONS Qualifiers: Diabetes mellitus type: type 2 Diabetes mellitus complication status: with kidney complications Diabetes mellitus complication detail: with chronic kidney disease (6) Elevated cholesterol Code(s): E78.0 - PURE HYPERCHOLESTEROLEMIA * DO NOT USE * Assessment/Plan 1) Acute gastroenteritis (Resolved) Code(s): K52.9 - NONINFECTIVE GASTROENTERITIS AND COLITIS, UNSPECIFIED (2) ESRD on hemodialysis( Stable) Code(s): N18.6 - END STAGE RENAL DISEASE Z99.2 - DEPENDENCE ON RENAL DIALYSIS (3) Dehydration( Resolved) Off IV fluids Code(s): E86.0 - DEHYDRATION (4) 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( Rx for 6-[address] [facility]) Off Daptomycin Code(s): G06.1 - INTRASPINAL ABSCESS AND GRANULOMA (5) Diabetes mellitus Code(s): E11.9 - TYPE 2 DIABETES MELLITUS WITHOUT COMPLICATIONS Qualifiers: Diabetes mellitus type: type 2 Diabetes mellitus complication status: with kidney complications Diabetes mellitus complication detail: with chronic kidney disease (6) Elevated cholesterol Code(s): E78.0 - PURE HYPERCHOLESTEROLEMIA * DO NOT USE *
[2016-03-27] MEDS: MAG HYDROX/AL HYDROX/SIMETH 30 ML UNIT-DOSE CUP PO SCH (21:13)
[2016-03-27] MEDS: ATORVASTATIN CA 80 MG TABLET (FP) PO SCH (21:19)
[2016-03-28] MEDS: ONDANSETRON 4 MG/2 ML VIAL IVPB SCH ×2 (03:10→09:26)
[2016-03-28] MEDS: CYCLOBENZAPRINE HCL 10 MG TABLET (FP) PO SCH ×2 (06:03→13:44)
[2016-03-28] MEDS: hydrALAZINE HCL 50 MG TABLET (FP) PO SCH ×2 (06:03→13:44)
[2016-03-28] MEDS: MAG HYDROX/AL HYDROX/SIMETH 30 ML UNIT-DOSE CUP PO SCH ×2 (06:05→13:45)
[2016-03-28] MEDS: FERROUS SO4 325 MG TABLET (FP) PO SCH (08:36)
[2016-03-28] MEDS ORDERED: PT OWN MED DRAWER 7, Y5N ONE (09:15)
[2016-03-28] MEDS: FUROSEMIDE 40 MG TABLET (FP) PO SCH (09:18)
[2016-03-28] MEDS: PANTOPRAZOLE 40 MG TABLET (FP) PO SCH (09:26)
[2016-03-28] MEDS: LISINOPRIL 5 MG TABLET (FP) PO SCH (09:26)
[2016-03-28] MEDS: LIDOCAINE 5% TOPICAL PATCH TP SCH ×2 (09:26→09:29)
[2016-03-28 10:27] VITALS: TEMP 98.6
--- NOTE | 2016-03-28 11:13 | PN ---
Progress Note, Physician Chief Complaint: Vomitting/ Abd pain Ptrecently Rx for Recent Perivertebrial Abcess/Sepsis completed course of Dapto To follow up with Neuro-Sx as outpatient Pt Gastroenteritis and Severe Abd pain had resolved History of Present Illness: Today Pt is not having Vomittings Pt is tolerating diet No loose stools Had HD today Pt wanted to go home - Current Medication List Current Medications: Active Medications Al Hydroxide/Mg Hydroxide (Mylanta Oral Suspension -) 15 ml PO TID [facility] Last Admin: 03/28/16 06:05 Dose: 15 ml Atorvastatin Calcium (Lipitor -) 80 mg PO HS [facility] Last Admin: 03/27/16 21:19 Dose: 80 mg Cyclobenzaprine HCl (Flexeril -) 5 mg PO TID [facility] Last Admin: 03/28/16 06:03 Dose: 5 mg Ferrous Sulfate (Feosol -) 325 mg PO BIDWM [facility] Last Admin: 03/28/16 08:36 Dose: 325 mg Furosemide (Lasix -) 80 mg PO DAILY [facility] Last Admin: 03/28/16 09:18 Dose: 80 mg Hydralazine HCl (Apresoline -) 50 mg PO TID [facility] Last Admin: 03/28/16 06:03 Dose: 50 mg Lidocaine (Lidoderm Patch -) 1 patch TP DAILY [facility] Last Admin: 03/28/16 09:29 Dose: Not Given Lisinopril (Prinivil) 5 mg PO DAILY [facility] Last Admin: 03/28/16 09:26 Dose: 5 mg Nitroglycerin (Nitrostat -) 0.4 mg SL Q5M PRN PRN Reason: FOR CHEST PAIN Ondansetron HCl (Zofran Injection) 4 mg IVPB Q6H [facility] Last Admin: 03/28/16 09:26 Dose: Not Given Pantoprazole Sodium (Protonix -) 40 mg PO DAILY [facility] Last Admin: 03/28/16 09:26 Dose: 40 mg - Objective Vital Signs: Vital Signs Temperature 98.6 F 03/28/16 08:25 Pulse Rate 94 H 03/28/16 10:10 Respiratory Rate 18 03/28/16 08:25 Blood Pressure 191/105 03/28/16 10:10 O2 Sat by Pulse Oximetry (%) 97 03/26/16 18:08 Labs: CBC, BMP 03/27/16 06:20 03/27/16 06:20 INR, PTT INR 1.12 (0.82-1.09) 03/26/16 10:16 Problem List - Problems (1) Acute gastroenteritis Code(s): K52.9 - NONINFECTIVE GASTROENTERITIS AND COLITIS, UNSPECIFIED (2) ESRD on hemodialysis Code(s): N18.6 - END STAGE RENAL DISEASE Z99.2 - DEPENDENCE ON RENAL DIALYSIS (3) Dehydration Code(s): E86.0 - DEHYDRATION (4) 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A (5) Diabetes mellitus Code(s): E11.9 - TYPE 2 DIABETES MELLITUS WITHOUT COMPLICATIONS Qualifiers: Diabetes mellitus type: type 2 Diabetes mellitus complication status: with kidney complications Diabetes mellitus complication detail: with chronic kidney disease (6) Elevated cholesterol Code(s): E78.0 - PURE HYPERCHOLESTEROLEMIA * DO NOT USE *
--- NOTE | 2016-03-28 11:18 | DS ---
Physical Examination Vital Signs: Vital Signs Temperature 98.6 F 03/28/16 08:25 Pulse Rate 94 H 03/28/16 10:10 Respiratory Rate 18 03/28/16 08:25 Blood Pressure 191/105 03/28/16 10:10 O2 Sat by Pulse Oximetry (%) 97 03/26/16 18:08 Constitutional: Yes: No Distress Eyes: Yes: Other (Lt eye visual loss) HENT: Yes: Atraumatic, Normocephalic Neck: Yes: Supple, Trachea Midline Cardiovascular: Yes: Regular Rate and Rhythm, S1, S2 Respiratory: Yes: Regular, CTA Bilaterally Gastrointestinal: Yes: Normal Bowel Sounds, Soft ...Rectal Exam: Yes: Deferred Renal/: Yes: Other (CRF on HD) Musculoskeletal: Yes: Other (Lt MTA) Edema: No Peripheral Pulses WNL: No (PVD) Neurological: Yes: Alert, Oriented, Cran Nerves II-XII Intact Psychiatric: Yes: Alert, Oriented Labs: CBC, BMP 03/27/16 06:20 03/27/16 06:20 Discharge Summary Reason For Visit: RENAL FAILURE; ACUTE GASTROENTERITIS; DEHYDRATION Current Active Problems 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 (Acute) Acute gastroenteritis (Acute) Conjunctivitis (Acute) Dehydration (Acute) Diabetes mellitus (Acute) ESRD on hemodialysis (Acute) Elevated cholesterol (Acute) Elevated troponin I level (Acute) Epistaxis (Acute) Hyperkalemia (Acute) Influenza (Acute) Pain (Acute) Pneumonia (Acute) Posterior neck pain (Acute) Sepsis (Acute) Systolic and diastolic CHF, chronic (Acute) Upper abdominal pain (Acute) Condition: Improved - Instructions Referrals: Yamilka Hernandez MD [Primary Care Provider] - 1 Week (Dr Ovidio Vivas) - Home Medications Comprehensive Discharge Medication List: Ambulatory Orders Aspirin [ASA -] 81 mg PO DAILY 11/13/14 Isosorbide Mononitrate [Imdur -] 30 mg PO DAILY 11/13/14 Lisinopril [Prinivil] 5 mg PO DAILY 11/13/14 Pantoprazole Sodium [Protonix] 20 mg PO BID #20 tablet. 02/13/15 Atorvastatin Ca [Lipitor] 80 mg PO HS tablet 12/22/15 Nifedipine ER [Procardia XL -] 60 mg PO DAILY tab.er.24 10/29/16 Albuterol 0.083% Nebulizer Apryl [Ventolin 0.083% Nebulizer Soln -] 1 amp NEB QID PRN 03/26/16 Bisacodyl [Laxative] 5 mg PO BID 03/26/16 Cyclobenzaprine HCl [Flexeril -] 5 mg PO TID 03/26/16 Daptomycin 500 mg IV ASDIR 03/26/16 Ferrous Sulfate 325 mg PO BID 03/26/16 Furosemide [Lasix] 80 mg PO DAILY 03/26/16 Hydralazine HCl [Apresoline -] 100 mg PO TID 03/26/16 Hydromorphone [Dilaudid -] 4 mg PO Q6H 03/26/16 Insulin Glargine,Hum.rec.anlog [Lantus (nf)] 15 units SQ HS 03/26/16 Lidocaine 5% Patch [Lidoderm Patch -] 1 patch TP DAILY 03/26/16 Magnesium Oxide 400 mg PO TID 03/26/16 Metoprolol Succinate [Toprol Xl] 100 mg PO DAILY 03/26/16 Nitroglycerin Sublingual [Nitrostat -] 0.4 mg SL PRN 03/26/16 Oxycodone HCl [Roxicodone -] 40 mg PO TID PRN MDD 4 03/26/16 Polyethylene Glycol 3350 [Gavilax] 17 gm PO HS 03/26/16 Sevelamer Carbonate [Renvela] 800 mg PO TID 03/26/16 Tamsulosin HCl [Flomax] 0.4 mg PO HS 03/26/16
[2016-03-28 13:01] VITALS: BP 183/106; PULSE 90
--- NOTE | 2016-03-28 13:37 | PN ---
Progress Note (short form) - Note Progress Note: Renal Follow up for ESRD on HD Pt seen and examined at the bedside Denies any Nausea, vomiting, diarrhea No abd pain s/p dialysis yesterday Vital Signs Temperature 98.6 F 03/28/16 08:25 Pulse Rate 90 03/28/16 13:00 Respiratory Rate 18 03/28/16 08:25 Blood Pressure 183/106 03/28/16 13:00 O2 Sat by Pulse Oximetry (%) 97 03/26/16 18:08 Gen: NAD, awake and alert CVS: RRR, No M/R Lungs: CTA, no rales or wheeze Abd: soft NT/ND Ext: Left TMA, No edema, clubbing or cyanosis CBC, BMP 03/27/16 06:20 03/27/16 06:20 Current Medications Al Hydroxide/Mg Hydroxide (Mylanta Oral Suspension -) 15 ml PO TID [facility] Last Admin: 03/28/16 06:05 Dose: 15 ml Atorvastatin Calcium (Lipitor -) 80 mg PO HS [facility] Last Admin: 03/27/16 21:19 Dose: 80 mg Cyclobenzaprine HCl (Flexeril -) 5 mg PO TID [facility] Last Admin: 03/28/16 06:03 Dose: 5 mg Ferrous Sulfate (Feosol -) 325 mg PO BIDWM [facility] Last Admin: 03/28/16 08:36 Dose: 325 mg Furosemide (Lasix -) 80 mg PO DAILY [facility] Last Admin: 03/28/16 09:18 Dose: 80 mg Hydralazine HCl (Apresoline -) 50 mg PO TID [facility] Last Admin: 03/28/16 06:03 Dose: 50 mg Hydralazine HCl (Apresoline -) 100 mg PO ONCE ONE Stop: 03/28/16 13:46 Lidocaine (Lidoderm Patch -) 1 patch TP DAILY [facility] Last Admin: 03/28/16 09:29 Dose: Not Given Lisinopril (Prinivil) 5 mg PO DAILY [facility] Last Admin: 03/28/16 09:26 Dose: 5 mg Nitroglycerin (Nitrostat -) 0.4 mg SL Q5M PRN PRN Reason: FOR CHEST PAIN Ondansetron HCl (Zofran Injection) 4 mg IVPB Q6H [facility] Last Admin: 03/28/16 09:26 Dose: Not Given Pantoprazole Sodium (Protonix -) 40 mg PO DAILY [facility] Last Admin: 03/28/16 09:26 Dose: 40 mg A/P 50 year old Gentleman with PMhx of ESRD on HD, DM, Hypertension, PVD recent admission at [facility] for Abcess in cervial spine requiring prolonged course of Abx presents with complaints of Nausea, diarrhea and Abd pain and admitted for acute gastroenteritis. #Abd pain/Nausea/Vomiting CT of the Abd/Pelvis w/o contrast showed no acute pathology Symptoms now resolved #ESRD on HD No acute indication for dialysis today to resume dialysis as an outpatient tomorrow #Recent Perivertebrial Abcess/Sepsis completed course of Dapto To follow up with Neuro-Sx as outpatient #Hypertension Continue Lisinopril and Hydralazine Thank you Antwan Hurley DO
[2016-03-28] MEDS ORDERED: hydrALAZINE HCL 50 MG TABLET (FP) PO ONE (13:45)
[2016-03-29 00:06] LABS: HEP B SURFACE AB Reactive (.)
--- NOTE | 2016-04-02 13:45 | EKG ---
Test Reason : Blood Pressure : / mmHG Vent. Rate : 084 BPM Atrial Rate : 084 BPM P-R Int : 170 ms QRS Dur : 090 ms QT Int : 408 ms P-R-T Axes : 061 -39 059 degrees QTc Int : 482 ms NORMAL SINUS RHYTHM POSSIBLE LEFT ATRIAL ENLARGEMENT LEFT AXIS DEVIATION SEPTAL INFARCT (CITED ON OR BEFORE 13-DEC-2009) ABNORMAL ECG WHEN COMPARED WITH ECG OF 30-DEC-2015 09:05, NONSPECIFIC T WAVE ABNORMALITY NO LONGER EVIDENT IN LATERAL LEADS Confirmed by RONAK MILAN MD ([id number]) on 04/02/2016 1:45:36 PM Referred By: Confirmed By:RONAK MILAN MD
== END 2016-03-28 15:55 | disposition home or self-care (01) | DRG 391 ==
LOC: JER 09:27 → SUPCPDRO 09:27 → JERBED 16:38 → J8W 18:45
PROVIDERS: ADMIT Internal Medicine; ATTEND Internal Medicine
PROC: 5A1D60Z (ICD-10-PCS; principal; 2016-03-27)
DX: K52.9 Noninfective gastroenteritis and colitis, unspecified (principal); N18.6 End stage renal disease; I13.2 Hypertensive heart and chronic kidney disease with heart failure and with stage 5 chronic kidney disease, or end stage renal disease; I50.42 Chronic combined systolic (congestive) and diastolic (congestive) heart failure; E86.0 Dehydration; Z99.2 Dependence on renal dialysis; E87.5 Hyperkalemia; E11.9 Type 2 diabetes mellitus without complications; I25.10 Atherosclerotic heart disease of native coronary artery without angina pectoris; Z95.1 Presence of aortocoronary bypass graft; E78.5 Hyperlipidemia, unspecified; Z87.891 Personal history of nicotine dependence
CPT/HCPCS: 36415; 71010-TC; 74176-TC; 76705-TC; 80048; 80053; 80061; 82150; 83690; 83721; 83880; 84100; 85025; 85027; 85610; 86704; 86706; 86708; 87040; 87324; 87340; 87449; 93005; 93010; 93306-TC; 99284-25

== ENCOUNTER 2016-05-01 22:28 | Emergency (ER) | payer OTHER ==
[2016-05-01 22:48] VITALS: BP 127/68; PULSE 87; TEMP 98; BMI 26.7
[2016-05-01] MEDS ORDERED: traMADol HCL 50 MG TABLET PO ONE (23:19)
--- NOTE | 2016-05-01 23:19 | PDOC ---
History of Present Illness - General History Source: Patient Exam Limitations: No Limitations - History of Present Illness Initial Comments: 05/01/16 23:47 The patient is a 50 year old male with significant past medical history of CAD, s/p stent, CHF, hypertension, hyperlipidemia, ESRD on dialysis /, diabetes , and GERD who presents to the ED with pain to the right knee and right scapular region s/p mechanical fall prior to arrival. Patient reports after completing his dialysis session today, he slip and fell. He now has complaints of pain to the right knee and right scapular region. Patient denies LOC or trauma to the head. The patient denies fever, chills, cough, SOB, chest pain, and palpitations. The patient denies abdominal pain, nausea, vomiting, and diarrhea. Allergies: NKDA Social History: No alcohol, tobacco, or drug use reported. Past Surgical History: Amputation (Left Transmetatarsal), AV Fistula/Graft, CABG (05/2010), s/p stent (05/2013) PCP: Dr. Sangeetha Nolan <Becca Ashby - Last Filed: 05/01/16 23:47> - General History Source: Patient <Carlin Ruiz - Last Filed: 05/02/16 01:00> - General Chief Complaint: Injury Stated Complaint: FALL/INJURY Time Seen by Provider: 05/01/16 23:16 Past History <Becca Ashby - Last Filed: 05/01/16 23:47> - Past Medical History Anemia: Yes Asthma: No Cancer: No Cardiac Disorders: Yes ("silent [place]" CABG x 2 vessels 05/24/2010) CVA: No COPD: No CHF: Yes Dementia: No Diabetes: Yes Dialysis: Yes () GI Disorders: No Disorders: No HTN: Yes Hypercholesterolemia: Yes Liver Disease: No Suicide Attempt (Hx): No Seizures: No Thyroid Disease: No - Surgical History Abdominal Surgery: No Appendectomy: No Cardiac Surgery: Yes (CABG 05/2010, cardiac stent may 2013) Cholecystectomy: No Lung Surgery: No Orthopedic Surgery: Yes (amputation of all toes on left foot) - Family Disease History Family Disease History: Diabetes: Mother, Heart Disease: Father - Immunization History Immunization Up to Date: Yes - Psycho/Social/Smoking Cessation Hx Anxiety: No Suicidal Ideation: No Smoking Status: No Smoking History: Never smoked Years of Tobacco Use: 0 Have you smoked in the past 12 months: No Number of Cigarettes Smoked Daily: 2 If you are a former smoker, when did you quit?: 1989 Cigars Per Day: 0 Information on smoking cessation initiated: No 'Breaking Loose' booklet given: 06/04/12 Hx Alcohol Use: No Drug/Substance Use Hx: No Substance Use Type: None Hx Substance Use Treatment: No <Carlin Ruiz - Last Filed: 05/02/16 01:00> - Past Medical History Allergies/Adverse Reactions: Allergies Allergy/AdvReac Type Severity Reaction Status Date / Time No Known Drug Allergies Allergy Verified 05/01/16 22:45 Home Medications: Ambulatory Orders Aspirin [ASA -] 81 mg PO DAILY 11/13/14 Isosorbide Mononitrate [Imdur -] 30 mg PO DAILY 11/13/14 Lisinopril [Prinivil] 5 mg PO DAILY 11/13/14 Pantoprazole Sodium [Protonix] 20 mg PO BID #20 tablet.dr 02/13/15 Atorvastatin Ca [Lipitor] 80 mg PO HS tablet 12/22/15 Nifedipine ER [Procardia XL -] 60 mg PO DAILY tab.er.24 12/22/15 Albuterol 0.083% Nebulizer Apryl [Ventolin 0.083% Nebulizer Soln -] 1 amp NEB QID PRN 03/26/16 Bisacodyl [Laxative] 5 mg PO BID 03/26/16 Cyclobenzaprine HCl [Flexeril -] 5 mg PO TID 03/26/16 Daptomycin 500 mg IV ASDIR 03/26/16 Ferrous Sulfate 325 mg PO BID 03/26/16 Furosemide [Lasix] 80 mg PO DAILY 03/26/16 Hydralazine HCl [Apresoline -] 100 mg PO TID 03/26/16 Hydromorphone [Dilaudid -] 4 mg PO Q6H 03/26/16 Insulin Glargine,Hum.rec.anlog [Lantus (nf)] 15 units SQ HS 03/26/16 Lidocaine 5% Patch [Lidoderm Patch -] 1 patch TP DAILY 03/26/16 Magnesium Oxide 400 mg PO TID 03/26/16 Metoprolol Succinate [Toprol Xl] 100 mg PO DAILY 03/26/16 Nitroglycerin Sublingual [Nitrostat -] 0.4 mg SL PRN 03/26/16 Oxycodone HCl [Roxicodone -] 40 mg PO TID PRN MDD 4 03/26/16 Polyethylene Glycol 3350 [Gavilax] 17 gm PO HS 03/26/16 Sevelamer Carbonate [Renvela] 800 mg PO TID 03/26/16 Tamsulosin HCl [Flomax] 0.4 mg PO HS 03/26/16 Tramadol HCl [Ultram -] 50 mg PO Q6H #20 tablet MDD 4 05/02/16 Review of Systems - Review of Systems Able to Perform ROS?: Yes Comments:: 05/01/16 23:47 CONSTITUTIONAL: Absent: fever, no chills, no fatigue EYES: Absent: visual changes ENT: Absent: ear pain, no sore throat CARDIOVASCULAR: Absent: chest pain, no palpitations RESPIRATORY: Absent: cough, no SOB GI: Absent: abdominal pain, no nausea, no vomiting, no constipation, no diarrhea GENITOURINARY: Absent: dysuria, no frequency, no hematuria MUSKULOSKELETAL: +right knee pain and right scapular pain SKIN: Absent: rash NEURO: Absent: headache <Becca Ashby - Last Filed: 05/01/16 23:47> *Physical Exam - Vital Signs Last Vital Signs Temp Pulse Resp BP Pulse Ox 98 F 87 18 127/68 98 05/01/16 22:46 05/01/16 22:46 05/01/16 22:46 05/01/16 22:46 05/01/16 22:46 - Physical Exam Comments: 05/01/16 23:48 GENERAL: Well-appearing, well-nourished. No apparent distress. HEENT: Normocephalic, atraumatic. PERRL, EOM intact. CARDIOVASCULAR: Normal S1, S2. Regular rate and rhythm. PULMONARY: Clear to auscultation bilaterally. ABDOMEN: Soft, non-distended, non-tender. EXTREMITIES: Normal ROM in all four extremities. No gross deformities. Left metatarsals amputation. Left arm AV fistula. SKIN: Warm, dry. No rash NEUROLOGICAL: No focal neurological deficits. <Becca Ashby - Last Filed: 05/01/16 23:47> - Vital Signs Last Vital Signs Temp Pulse Resp BP Pulse Ox 98 F 87 18 127/68 98 05/01/16 22:46 05/01/16 22:46 05/01/16 22:46 05/01/16 22:46 05/01/16 22:46 <Carlin Ruiz - Last Filed: 05/02/16 01:00> ED Treatment Course - Medications Given in the ED: ED Medications Discontinued Medications Generic Name Dose Route Start Last Admin Trade Name Zach PRN Reason Stop Dose Admin Tramadol HCl 50 mg 05/01/16 23:19 05/01/16 23:35 Ultram - PO 05/01/16 23:20 50 mg ONCE ONE Administration <Becca Ashby - Last Filed: 05/01/16 23:47> Medical Decision Making - Medical Decision Making 05/02/16 00:59 Dr. Ruiz: The scribe's documentation has been prepared under my direction and personally reviewed by me in its entirery. I confirm that the note above accurately reflects all work, treatment, procedures, and medical decision making performed by me knee xray is negative for fx. Pt to follow up with pcp. Referred to ortho as needed. <Cralin Ruiz - Last Filed: 05/02/16 01:00> *DC/Admit/Observation/Transfer - Attestations Scribe Attestion: 05/01/16 23:48 Documentation prepared by Becca Ashby, acting as medical management trainer for Carlin Ruiz MD <Becca Ashby - Last Filed: 05/01/16 23:47> - Discharge Dispostion Admit: No <Carlin Ruiz - Last Filed: 05/02/16 01:00> Diagnosis at time of Disposition: Contusion of right knee Qualifiers: Encounter type: initial encounter Qualified Code(s): S80.01XA - Contusion of right knee, initial encounter - Discharge Dispostion Disposition: HOME Condition at time of disposition: Stable - Prescriptions Prescriptions: Tramadol HCl [Ultram -] 50 mg PO Q6H #20 tablet MDD 4 - Referrals Referrals: Yamilka Hernandez MD [Primary Care Provider] - Mukesh East MD [Staff Physician] - - Patient Instructions Printed Discharge Instructions: DI for Contusion
[2016-05-01] MEDS ORDERED: traMADol HCL 50 MG TABLET ONE (23:34)
== END 2016-05-02 01:13 | disposition home or self-care (01) ==
LOC: JER 22:28
DX: S80.01XA Contusion of right knee, initial encounter (principal); M25.511 Pain in right shoulder; I25.2 Old myocardial infarction; I13.2 Hypertensive heart and chronic kidney disease with heart failure and with stage 5 chronic kidney disease, or end stage renal disease; N18.6 End stage renal disease; I50.9 Heart failure, unspecified; Z99.2 Dependence on renal dialysis; Z95.1 Presence of aortocoronary bypass graft; E11.9 Type 2 diabetes mellitus without complications; Z79.4 Long term (current) use of insulin; E78.00 Pure hypercholesterolemia, unspecified; D64.9 Anemia, unspecified; W01.0XXA Fall on same level from slipping, tripping and stumbling without subsequent striking against object, initial encounter; Y93.89 Activity, other specified; Y92.89 Other specified places as the place of occurrence of the external cause
CPT/HCPCS: 73030-TC-RT; 73562-TC-RT; 99281-25

== ENCOUNTER 2016-06-10 08:39 | Inpatient (IN) | payer OTHER ==
--- NOTE | 2016-06-10 10:34 | PDOC ---
Attending Attestation - Resident Resident Name: José Manuel Lopez - ED Attending Attestation I have performed the following: I have examined & evaluated the patient, The case was reviewed & discussed with the resident, I agree w/resident's findings & plan, Exceptions are as noted - HPI HPI: 50 yo M history HTN, CHF, [place] s/p CABG, ESRD on HD, HL, prior cervical spine osteomyelitis with abscess. He presents with acute onset severe neck pain. Neck pain is posterior, severe, constant, positional. Denies weakness, numbness. Pain radiates to shoulders B/L, but no changes to the arms. No fevers. - Physicial Exam PE: GENERAL: Awake, alert, and fully oriented, appears uncomfortable. HEAD: No signs of trauma EYES: PERRLA, EOMI, sclera anicteric, conjunctiva clear ENT: Auricles normal inspection, hearing grossly normal, nares patent, oropharynx clear without exudates. Moist mucosa NECK: Normal ROM, supple, no lymphadenopathy, JVD, or masses. No meningismus. LUNGS: Breath sounds equal, clear to auscultation bilaterally. No wheezes, and no crackles HEART: Regular rate and rhythm, normal S1 and S2, no murmurs, rubs or gallops ABDOMEN: Soft, nontender, normoactive bowel sounds. No guarding, no rebound. No masses EXTREMITIES: Normal range of motion, no edema. No clubbing or cyanosis. No cords, erythema, or tenderness NEUROLOGICAL: Cranial nerves II through XII grossly intact. Normal speech, normal gait SKIN: Warm, Dry, normal turgor, no rashes or lesions noted. SPINE: +Midline tenderness to C5-7 and to upper T-spine. - Medical Decision Making 50 yo M with multiple medical comorbidities presents with acute onset severe neck pain. History of treatment for spinal abscess with IV antibiotics. He did not require surgical intervention. Since he did not have any surgical intervention, will obtain MRI to be sure there is not a persistent or new collection. D/w Dr. Pickett, will admit.
--- NOTE | 2016-06-10 10:35 | PDOC ---
History of Present Illness <Ashley Dumont - Last Filed: 06/10/16 14:10> - General History Source: Patient Exam Limitations: No Limitations - History of Present Illness Initial Comments: 50 yo M with h/o MRSA, cervical osteomyelitis, HTN, CHF, [place] s/p CABG x 2 vessels , stents, ESRD on HD (, Thu, Thu), anemia, HLD presented to the ED with severe neck pain since last night 8pm. The pain is located in posterior neck, radiates to b/l shoulder and upper back, 10/10, constant, worse with positional change. Patient was admitted last year in December for the same complaint and found to have inflammatory changes of C5-6 and abscess on MRI. He was subsequently transferred to [facility] and treated with full course of antibiotics. During this admission, he denies fever, chills, sob, chest pain, abd pain, weakness, incontinence. <José Manuel Lopez - Last Filed: 06/10/16 14:14> - General Chief Complaint: Pain, Acute Stated Complaint: BACK PAIN Time Seen by Provider: 06/10/16 09:51 Past History <Ashley Dumont - Last Filed: 06/10/16 14:10> - Travel Traveled outside of the country in the last 30 days: No Close contact w/someone who was outside of country & ill: No - Past Medical History Anemia: Yes Asthma: No Cancer: No Cardiac Disorders: Yes ("silent [place]" CABG x 2 vessels 05/24/2010) CVA: No COPD: No CHF: Yes Dementia: No Diabetes: Yes Dialysis: Yes () GI Disorders: No Disorders: No HTN: Yes Hypercholesterolemia: Yes Liver Disease: No Suicide Attempt (Hx): No Seizures: No Thyroid Disease: No - Surgical History Abdominal Surgery: No Appendectomy: No Cardiac Surgery: Yes (CABG 05/2010, cardiac stent may 2013) Cholecystectomy: No Lung Surgery: No Orthopedic Surgery: Yes (amputation of all toes on left foot) - Family Disease History Family Disease History: Diabetes: Mother, Heart Disease: Father - Immunization History Immunization Up to Date: Yes - Psycho/Social/Smoking Cessation Hx Anxiety: No Suicidal Ideation: No Smoking Status: No Smoking History: Former smoker Years of Tobacco Use: 0 Have you smoked in the past 12 months: No Number of Cigarettes Smoked Daily: 2 If you are a former smoker, when did you quit?: 1989 Cigars Per Day: 0 Information on smoking cessation initiated: No 'Breaking Loose' booklet given: 06/04/12 Hx Alcohol Use: No Drug/Substance Use Hx: No Substance Use Type: None Hx Substance Use Treatment: No <JohnJosé Manuel - Last Filed: 06/10/16 14:14> - Past Medical History Allergies/Adverse Reactions: Allergies Allergy/AdvReac Type Severity Reaction Status Date / Time No Known Drug Allergies Allergy Verified 06/10/16 08:55 Home Medications: Ambulatory Orders Aspirin [ASA -] 81 mg PO DAILY 11/13/14 Isosorbide Mononitrate [Imdur -] 30 mg PO DAILY 11/13/14 Lisinopril [Prinivil] 5 mg PO DAILY 11/13/14 Pantoprazole Sodium [Protonix] 20 mg PO BID #20 tablet. 02/13/15 Atorvastatin Ca [Lipitor] 80 mg PO HS tablet 12/22/15 Nifedipine ER [Procardia XL -] 60 mg PO DAILY tab.er.24 12/22/15 Albuterol 0.083% Nebulizer Apryl [Ventolin 0.083% Nebulizer Soln -] 1 amp NEB QID PRN 03/26/16 Bisacodyl [Laxative] 5 mg PO BID 03/26/16 Cyclobenzaprine HCl [Flexeril -] 5 mg PO TID 03/26/16 Daptomycin 500 mg IV ASDIR 03/26/16 Ferrous Sulfate 325 mg PO BID 03/26/16 Furosemide [Lasix] 80 mg PO DAILY 03/26/16 Hydralazine HCl [Apresoline -] 100 mg PO TID 03/26/16 Hydromorphone [Dilaudid -] 4 mg PO Q6H 03/26/16 Insulin Glargine,Hum.rec.anlog [Lantus (nf)] 15 units SQ HS 03/26/16 Lidocaine 5% Patch [Lidoderm Patch -] 1 patch TP DAILY 03/26/16 Magnesium Oxide 400 mg PO TID 03/26/16 Metoprolol Succinate [Toprol Xl] 100 mg PO DAILY 03/26/16 Nitroglycerin Sublingual [Nitrostat -] 0.4 mg SL PRN 03/26/16 Oxycodone HCl [Roxicodone -] 40 mg PO TID PRN MDD 4 03/26/16 Polyethylene Glycol 3350 [Gavilax] 17 gm PO HS 03/26/16 Sevelamer Carbonate [Renvela] 800 mg PO TID 03/26/16 Tamsulosin HCl [Flomax] 0.4 mg PO HS 03/26/16 Tramadol HCl [Ultram -] 50 mg PO Q6H #20 tablet MDD 4 05/02/16 Review of Systems - Review of Systems Able to Perform ROS?: Yes Is the patient limited Guatemalan proficient: No Constitutional: No: Chills, Fever HEENTM: Yes: Throat Pain, Throat Swelling Respiratory: No: Cough, Shortness of Breath Cardiac (ROS): No: Chest Pain Musculoskeletal: Yes: Back Pain, Neck Pain Neurological: Yes: Headache. No: Numbness, Paresthesia, Weakness <José Manuel Lopez - Last Filed: 06/10/16 14:14> *Physical Exam - Vital Signs Last Vital Signs Temp Pulse Resp BP Pulse Ox 97.6 F 84 17 191/112 99 06/10/16 08:51 06/10/16 13:59 06/10/16 13:59 06/10/16 13:59 06/10/16 13:59 <Ashley Dumont - Last Filed: 06/10/16 14:10> - Vital Signs Last Vital Signs Temp Pulse Resp BP Pulse Ox 97.6 F 90 20 182/102 95 06/10/16 08:51 06/10/16 08:51 06/10/16 08:51 06/10/16 08:51 06/10/16 08:51 - Physical Exam General Appearance: No: Apparent Distress HEENT: positive: NIKITA. negative: Tonsillar Exudate, Tonsillar Erythema Neck: positive: Tender, Rigid, Decreased range of motion, Tender midline Respiratory/Chest: positive: Lungs Clear, Normal Breath Sounds Cardiovascular: positive: Regular Rhythm, Regular Rate, S1, S2. negative: Murmur Gastrointestinal/Abdominal: positive: Normal Bowel Sounds, Soft. negative: Distended, Guarding, Rebound, Tenderness Extremity: positive: Other (chronic venous stasis in b/l legs). negative: Swelling, Calf Tenderness Neurologic: positive: Fully Oriented, Alert. negative: Numbness, Sensory Deficit <José Manuel Lopez - Last Filed: 06/10/16 14:14> ED Treatment Course - LABORATORY CBC & Chemistry Diagram: 06/10/16 11:13 06/10/16 13:01 - ADDITIONAL ORDERS Additional order review: Laboratory Results 06/10/16 06/10/16 06/10/16 13:01 13:01 11:13 Sodium 131 L Potassium 6.6 H* D Chloride 100 Carbon Dioxide 17 L Anion Gap 14 BUN 108 H* Creatinine 8.9 H* Creat Clearance w eGFR 6.35 Random Glucose 266 H D Calcium 8.1 L Phosphorus 8.1 H D Magnesium 2.9 H D Total Bilirubin 0.3 D AST 11 L D ALT 16 Alkaline Phosphatase 237 H D C-Reactive Protein 1.0 H D Total Protein 7.9 Albumin 3.4 D 06/10/16 11:13 Sodium Cancelled Potassium Cancelled Chloride Cancelled Carbon Dioxide Cancelled Anion Gap Cancelled BUN Cancelled Creatinine Cancelled Creat Clearance w eGFR Cancelled Random Glucose Cancelled Calcium Cancelled Phosphorus Magnesium Total Bilirubin Cancelled AST Cancelled ALT Cancelled Alkaline Phosphatase Cancelled C-Reactive Protein Total Protein Cancelled Albumin Cancelled 06/10/16 11:13 RBC 3.39 L MCV 96.2 H MCHC 33.4 RDW 16.7 H D MPV 9.2 D Neutrophils % 80.0 Lymphocytes % 8.7 Monocytes % 5.5 Eosinophils % 5.0 H Basophils % 0.8 - Medications Given in the ED: ED Medications Discontinued Medications Generic Name Dose Route Start Last Admin Trade Name Freq PRN Reason Stop Dose Admin Oxycodone/Acetaminophen 1 combo 06/10/16 10:45 06/10/16 11:00 Percocet 5/325 - PO 06/10/16 10:46 1 combo ONCE ONE Administration <Ashley Dumont - Last Filed: 06/10/16 14:10> - LABORATORY CBC & Chemistry Diagram: 06/10/16 11:13 06/10/16 13:01 <José Manuel Lopez - Last Filed: 06/10/16 14:14> Medical Decision Making - Medical Decision Making 06/10/16 10:55 Will obtain lab work and likely patient will need new MRI <José Manuel Lopez - Last Filed: 06/10/16 14:14> *DC/Admit/Observation/Transfer - Discharge Dispostion Admit: Yes <Ashley Dumont - Last Filed: 06/10/16 14:10> - Discharge Dispostion Admit: Yes <JohnJosé Manuel - Last Filed: 06/10/16 14:14> Diagnosis at time of Disposition: Neck pain, Acute hyperkalemia, ESRD on hemodialysis - Discharge Dispostion Condition at time of disposition: Stable - Referrals Referrals: Yamilka Hernandez MD [Primary Care Provider] - Shlomo Jones MD [Staff Physician] -
[2016-06-10] MEDS ORDERED: OXYCODONE/APAP 5/325MG COMBO TABLET PO ONE (10:45)
[2016-06-10] MEDS ORDERED: OXYCODONE/APAP 5/325MG COMBO TABLET ONE (11:00)
[2016-06-10 12:06] LABS: BASOPHIL 0.8 % (0-2.0); MCH 32.1 pg (25.7-33.7); MCHC 33.4 g/dl (32.0-35.9); MEAN CELL VOLUME 96.2 fl (80-96); MEAN PLT VOLUME 9.2 fl (7.5-11.1); PLATELET COUNT 342 K/MM3 (134-434); RDW 16.7 % (11.9-15.9); WHITE BLOOD COUNT 7.3 K/mm3 (4.0-10.0)
[2016-06-10 13:38] LABS: MAGNESIUM 2.9 mg/dL (1.8-2.4); PHOSPHOROUS 8.1 mg/dL (2.5-4.9)
[2016-06-10 13:42] LABS: ALBUMIN 3.4 g/dl (3.4-5.0); BILIRUBIN,TOTAL 0.3 mg/dL (0.2-1.0); CALCIUM 8.1 mg/dL (8.5-10.1); TOT PROT 7.9 g/dl (6.4-8.2)
[2016-06-10 13:47] LABS: COCKROFT - GAULT 11.14
[2016-06-10] MEDS ORDERED: METOPROLOL SUCCINATE 100 MG TAB.SR.24H (FP) PO ONE (13:56)
[2016-06-10] MEDS ORDERED: LISINOPRIL 5 MG TABLET (FP) PO ONE (13:56)
[2016-06-10] MEDS ORDERED: NIFEdipine E.R 60 MG TABLET (UD) PO ONE (13:57)
[2016-06-10] MEDS ORDERED: ISOSORBIDE MONONITRATE 60 MG TAB.SR.24H (FP) PO ONE ×2 (13:58→14:33)
[2016-06-10] MEDS ORDERED: hydrALAZINE HCL 50 MG TABLET (FP) PO ONE (13:58)
[2016-06-10] MEDS ORDERED: FUROSEMIDE 40 MG TABLET (FP) PO ONE (13:59)
[2016-06-10 14:01] LABS: CREATININE 8.9 mg/dL (0.7-1.3)
[2016-06-10] MEDS ORDERED: METOPROLOL SUCCINATE 50 MG TAB.SR.24H (FP) ONE (14:32)
[2016-06-10] MEDS ORDERED: hydrALAZINE HCL 25 MG TABLET (FP) ONE (14:32)
[2016-06-10] MEDS ORDERED: NIFEdipine 10 MG CAPSULE (FP) ONE (14:33)
[2016-06-10] MEDS ORDERED: LISINOPRIL 5 MG TABLET (FP) ONE (14:33)
[2016-06-10] MEDS ORDERED: FUROSEMIDE 40 MG TABLET (FP) ONE (14:38)
[2016-06-10] MEDS ORDERED: DEXTROSE 50%-WATER 50 ML VIAL IVPUSH ONE (14:49)
[2016-06-10] MEDS ORDERED: INSULIN REGULAR HUMAN 100 UNITS/ML *VIAL IVPUSH ONE ×2 (14:49→14:53)
[2016-06-10] MEDS ORDERED: DEXTROSE 50%-WATER 50 ML DISP.SYRIN ONE (15:07)
[2016-06-10] MEDS ORDERED: INSULIN REGULAR HUMAN 100 UNITS/ML *VIAL ONE (15:08)
--- NOTE | 2016-06-10 20:14 | HP ---
Admitting History and Physical - Primary Care Physician PCP: DR Ovidio Vivas - Admission Chief Complaint: Hyperkalemia/Back pain/ Cervical spine osteomyelitis History of Present Illness: Pt came to ER with Severe Back pain and Hyperkalemic. Pt going for HD now seen at bedside - Past Medical History Cardiovascular: Yes: CAD, CHF (normal ejection fraction; poor LV compliance; no valvular abnormalities), HTN, Hyperlipdemia. No: AFIB, Aneurysm, Aortic Insufficiency, Aortic Stenosis, Deep Vein Thrombosis, MT, Mitral Insufficiency, Mitral Stenosis, Murmur, Pulmonary Hypertension, Other Gastrointestinal: Yes: GERD, GI Bleed. No: Ascites, Cancer, Constipation, Crohn 's Disease, Diverticulitis, Diverticulosis, Esophageal Varices, Gastritis, Hemorrhoids, Hiatal Hernia, Inflamatory Bowel Disease, Irritable Bowel Disease, Pancreatitis, Peptic Ulcer Disease, Ulcerative Colitis, Other Renal/: Yes: Renal Failure, Hemodialysis (ESRD on HD MWF via L arm AVF) Heme/Onc: No: Anemia, B12 Deficiency, Bleeding Disorder, Cancer, Current Chemotherapy, Current Radiation Therapy, Hemochromatosis, Hypercoaguable State, Myeloproliferative Synd, Sickle Cell Disease, Sickle Cell Trait, Thrombocytopenia, Other Psych: Yes: Anxiety Musculoskeletal: Yes: Other (left metatarsal amputation). No: Bursitis, Chronic low back pain, Hemiparesis, Hemiplegia, Osteoarthritis, Paraplegia Rheumatology: Yes: Gout Endocrine: Yes: Diabetes Mellitus. No: Garrett's Disease, [place]'s Disease, Diabetes Insipidus, Hyperparathyroidism, Hyperthyroidism, Hypothyroidism, Osteopenia, SIADH, Other - Past Surgical History Past Surgical History: Yes: Amputation (Left Transmetatarsal), AV Fistula/Graft , CABG (05/2010), Stent (s/p cardiac cath with stent placement). No: None, AAA Repair, AICD, Appendectomy, Arthrosocopy, Bariatric Surgery, Breast Biopsy, Bypass, Carotid Endarterectomy, Cataract Removal, Cholecystectomy, Colectomy, Colonoscopy, Colostomy, Craniotomy, , Cystectomy, Hernia Repair, Hysterectomy, Ileal Conduit, Ileosotomy, Joint Replacement, Kidney Transplant, Laminectomy, Liver Transplant, Mastectomy, Nephrectomy, Oopherectomy, Orchiectomy, Permanent Pacemaker, Prostatectomy, Splenectomy, Thoracotomy, TURP , Tonsillectomy, Tubal Ligation, Upper Endoscopy, Valve Replacement, Vasectomy, Vein Stripping/Ligation - Smoking History Smoking history: Former smoker Have you smoked in the past 12 months: No Aproximately how many cigarettes per day: 2 If you are a former smoker, when did you quit?: 1989 - Alcohol/Substance Use Hx Alcohol Use: No History of Substance Use: reports: None - Social History ADL: Independent 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 02/13/15 Atorvastatin Ca [Lipitor] 80 mg PO HS tablet 12/22/15 Nifedipine ER [Procardia XL -] 60 mg PO DAILY tab.er.24 12/22/15 Albuterol 0.083% Nebulizer Apryl [Ventolin 0.083% Nebulizer Soln -] 1 amp NEB QID PRN 03/26/16 Bisacodyl [Laxative] 5 mg PO BID 03/26/16 Cyclobenzaprine HCl [Flexeril -] 5 mg PO TID 03/26/16 Daptomycin 500 mg IV ASDIR 03/26/16 Ferrous Sulfate 325 mg PO BID 03/26/16 Furosemide [Lasix] 80 mg PO DAILY 03/26/16 Hydralazine HCl [Apresoline -] 100 mg PO TID 03/26/16 Hydromorphone [Dilaudid -] 4 mg PO Q6H 03/26/16 Insulin Glargine,Hum.rec.anlog [Lantus (nf)] 15 units SQ HS 03/26/16 Lidocaine 5% Patch [Lidoderm Patch -] 1 patch TP DAILY 03/26/16 Magnesium Oxide 400 mg PO TID 03/26/16 Metoprolol Succinate [Toprol Xl] 100 mg PO DAILY 03/26/16 Nitroglycerin Sublingual [Nitrostat -] 0.4 mg SL PRN 03/26/16 Oxycodone HCl [Roxicodone -] 40 mg PO TID PRN MDD 4 03/26/16 Polyethylene Glycol 3350 [Gavilax] 17 gm PO HS 03/26/16 Sevelamer Carbonate [Renvela] 800 mg PO TID 03/26/16 Tamsulosin HCl [Flomax] 0.4 mg PO HS 03/26/16 Tramadol HCl [Ultram -] 50 mg PO Q6H #20 tablet MDD 4 05/02/16 Family Disease History - Family Disease History Family Disease History: Diabetes: Father, Mother, Other: Father, Mother Physical Examination Vital Signs: Vital Signs Temperature 97.6 F 06/10/16 08:51 Pulse Rate 70 06/10/16 19:55 Respiratory Rate 18 06/10/16 19:55 Blood Pressure 102/57 06/10/16 19:55 O2 Sat by Pulse Oximetry (%) 99 06/10/16 18:10 Problem List - Problems (1) Acute hyperkalemia Code(s): E87.5 - HYPERKALEMIA (2) ESRD on hemodialysis Code(s): N18.6 - END STAGE RENAL DISEASE Z99.2 - DEPENDENCE ON RENAL DIALYSIS (3) 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2 - DEPENDENCE ON RENAL DIALYSIS (3) 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
[2016-06-10] MEDS ORDERED: NITROGLYCERIN SUBLINGUAL 1/150 0.4 MG TAB SL PRN (23:19)
[2016-06-10] MEDS ORDERED: METOPROLOL SUCCINATE 100 MG TAB.SR.24H (FP) PO SCH (23:30)
[2016-06-10] MEDS ORDERED: CYCLOBENZAPRINE HCL 10 MG TABLET (FP) PO PRN (23:40)
[2016-06-10] MEDS ORDERED: BISACODYL 5 MG TABLET.DR (FP) PO PRN (23:44)
[2016-06-10] MEDS ORDERED: INSULIN (NOVOLOG) ASPART 100 UNITS/ML 10ML VIAL SQ SCH (23:45)
[2016-06-10] MEDS: MAGNESIUM OXIDE 400 MG TABLET (FP) PO SCH (23:58)
[2016-06-11 01:52] VITALS: BMI 29.0
[2016-06-11] MEDS: ALBUTEROL SO4 2.5/IPRATROPIUM 0.5 INH SOL 3 ML VIAL.NEB. NEB SCH ×3 (06:20→17:57)
[2016-06-11] MEDS: INSULIN SLIDING SCALE (NOVOLOG) 1 VIAL SQ SCH ×3 (06:30→16:57)
[2016-06-11 08:02] LABS: BASOPHIL 1.1 % (0-2.0); EOSINOPHIL 5.8 % (0-4.5); MCH 32.4 pg (25.7-33.7); MEAN CELL VOLUME 95.4 fl (80-96); NEUTROPHILS 67.4 % (42.8-82.8); PLATELET COUNT 315 K/MM3 (134-434); WHITE BLOOD COUNT 6.4 K/mm3 (4.0-10.0)
[2016-06-11 08:23] LABS: CALCIUM 8.6 mg/dL (8.5-10.1); COCKROFT - GAULT 17.55
[2016-06-11 08:27] LABS: C-REACTIVE PROTEIN 1.1 MG/DL (0.00-0.3)
[2016-06-11] MEDS ORDERED: NIFEdipine E.R 60 MG TABLET (UD) PO SCH (10:00)
[2016-06-11] MEDS: PANTOPRAZOLE 20 MG TABLET (FP) PO SCH ×2 (10:18→22:26)
[2016-06-11] MEDS: TAMSULOSIN HCL 0.4 MG CAP.ER.24H (FP) PO SCH (10:18)
[2016-06-11] MEDS: FUROSEMIDE 40 MG TABLET (FP) PO SCH (10:18)
[2016-06-11] MEDS: ASPIRIN COATED 81 MG TABLET.EC PO SCH (10:18)
[2016-06-11] MEDS: LIDOCAINE 5% TOPICAL PATCH TP SCH (10:19)
[2016-06-11] MEDS: MAGNESIUM OXIDE 400 MG TABLET (FP) PO SCH ×2 (10:19→22:22)
[2016-06-11] MEDS: METOPROLOL SUCCINATE 100 MG TAB.SR.24H (FP) PO SCH (10:25)
[2016-06-11] MEDS: ISOSORBIDE MONONITRATE 30 MG TAB.SR.24H (FP) PO SCH (10:25)
[2016-06-11] MEDS: POLYETHYLENE GLYCOL 3350 119 GM BTL PO SCH (10:25)
--- NOTE | 2016-06-11 11:08 | CONSULT ---
Consult - text type - Consultation Consultation Note: Renal Consult for ESRD on HD This is a 50 year old Gentleman with PMhx of ESRD on HD, DM, Hypertension, PVD recent admission at [facility] for Abcess in cervial spine requiring prolonged course of Abx presents with complaints severe shoulder pain that started the night before admission and found to have K of 6.6. Pt s/p dialysis as inpatient yesterday with low k bath. Pt states that at home he had acute onset b/l shoulder pain. No radiation of pain or weakness in the arms or legs. Denies any fever or chills at home. No N/V/D. NO chest pain or sob. PMhx: as above Allergies: NKDA Family Hx: NC Social Hx: No T/A/D ROS: as per HPI, all other pertinent ros negative Home Meds: Home Medications Medication Instructions Recorded Aspirin [ASA -] 81 mg PO DAILY 11/13/14 Isosorbide Mononitrate [Imdur -] 30 mg PO DAILY 11/13/14 Lisinopril [Prinivil] 5 mg PO DAILY 11/13/14 Pantoprazole Sodium [Protonix] 20 mg PO BID #20 tablet.dr 02/13/15 Atorvastatin Ca [Lipitor] 80 mg PO HS tablet 12/22/15 Nifedipine ER [Procardia XL -] 60 mg PO DAILY tab.er.24 12/22/15 Albuterol 0.083% Nebulizer Apryl 1 amp NEB QID PRN 03/26/16 [Ventolin 0.083% Nebulizer Soln -] Bisacodyl [Laxative] 5 mg PO BID 03/26/16 Cyclobenzaprine HCl [Flexeril -] 5 mg PO TID 03/26/16 Daptomycin 500 mg IV ASDIR 03/26/16 Ferrous Sulfate 325 mg PO BID 03/26/16 Furosemide [Lasix] 80 mg PO DAILY 03/26/16 Hydralazine HCl [Apresoline -] 100 mg PO TID 03/26/16 Hydromorphone [Dilaudid -] 4 mg PO Q6H 03/26/16 Insulin Glargine,Hum.rec.anlog 15 units SQ HS 03/26/16 [Lantus (nf)] Lidocaine 5% Patch [Lidoderm Patch 1 patch TP DAILY 03/26/16 -] Magnesium Oxide 400 mg PO TID 03/26/16 Metoprolol Succinate [Toprol Xl] 100 mg PO DAILY 03/26/16 Nitroglycerin Sublingual 0.4 mg SL PRN 03/26/16 [Nitrostat -] Oxycodone HCl [Roxicodone -] 40 mg PO TID PRN MDD 4 03/26/16 Polyethylene Glycol 3350 [Gavilax] 17 gm PO HS 03/26/16 Sevelamer Carbonate [Renvela] 800 mg PO TID 03/26/16 Tamsulosin HCl [Flomax] 0.4 mg PO HS 03/26/16 Tramadol HCl [Ultram -] 50 mg PO Q6H #20 tablet MDD 4 05/02/16 Gen: NAD, awake and alert HEENT: NC/AT, MMM, No JVD, neck Supple CVS: RRR, No M/R Lungs: CTA, no rales or wheeze Abd: soft NT/ND Ext: Left TMA, No edema, clubbing or cyanosis : no bladder distension Neuro: AAOx3, no focal defects Access: AVF + thrill CBC, BMP 06/11/16 07:00 06/11/16 07:00 Laboratory Tests 06/10/16 06/10/16 06/11/16 13:01 13:01 07:00 Potassium 6.6 H* D BUN 108 H* Creatinine 8.9 H* Calcium 8.1 L 8.6 Phosphorus 8.1 H D Magnesium 2.9 H D Current Medications Albuterol/Ipratropium (Duoneb -) 1 amp NEB QIDR REPLACED BY [facility] Last Admin: 06/11/16 06:20 Dose: 1 amp Aspirin (Ecotrin -) 81 mg PO DAILY REPLACED BY [facility] Last Admin: 06/11/16 10:18 Dose: 81 mg Atorvastatin Calcium (Lipitor -) 80 mg PO [facility] Bisacodyl (Dulcolax -) 5 mg PO DAILY PRN PRN Reason: CONSTIPATION Cyclobenzaprine HCl (Flexeril -) 5 mg PO TID PRN PRN Reason: BACK PAIN Stop: 06/20/16 23:39 Furosemide (Lasix -) 80 mg PO DAILY REPLACED BY [facility] Last Admin: 06/11/16 10:18 Dose: 80 mg Hydromorphone HCl (Dilaudid -) 4 mg PO Q6H PRN PRN Reason: PAIN Last Admin: 06/11/16 06:48 Dose: 4 mg Insulin Aspart (Novolog Vial Sliding Scale -) 1 vial SQ TIDAC REPLACED BY [facility] PRN Reason: Protocol Last Admin: 06/11/16 06:30 Dose: Not Given Insulin Detemir (Levemir Vial) 15 units SQ HS REPLACED BY [facility] Stop: 06/16/16 18:00 Isosorbide Mononitrate (Imdur -) 30 mg PO DAILY REPLACED BY [facility] Last Admin: 06/11/16 10:25 Dose: Not Given Lidocaine (Lidoderm Patch -) 1 patch TP DAILY REPLACED BY [facility] Last Admin: 06/11/16 10:19 Dose: 1 patch Magnesium Oxide (Mag-Ox -) 400 mg PO BID REPLACED BY [facility] Last Admin: 06/11/16 10:19 Dose: 400 mg Metoprolol Succinate (Toprol Xl -) 100 mg PO DAILY REPLACED BY [facility] Last Admin: 06/11/16 10:25 Dose: Not Given Nifedipine (Procardia Xl -) 60 mg PO DAILY REPLACED BY [facility] Last Admin: 06/11/16 10:25 Dose: Not Given Nitroglycerin (Nitrostat -) 0.4 mg SL Q5M PRN PRN Reason: FOR CHEST PAIN Pantoprazole Sodium (Protonix -) 20 mg PO BID REPLACED BY [facility] Last Admin: 06/11/16 10:18 Dose: 20 mg Polyethylene Glycol (Miralax (For Daily Use) -) 17 gm PO DAILY REPLACED BY [facility] Last Admin: 06/11/16 10:25 Dose: Not Given Tamsulosin HCl (Flomax -) 0.4 mg PO DAILY@0830 REPLACED BY [facility] Last Admin: 06/11/16 10:18 Dose: 0.4 mg A/P 50 year old Gentleman with PMhx of ESRD on HD, DM, Hypertension, PVD recent admission at [facility] for Abcess in cervial spine requiring prolonged course of Abx presents with complaints severe shoulder pain that started the night before admission and found to have K of 6.6. #Shoulder Pain/Hx of Retropharygenal abscess/Cervial Osteomylitis/Discitis No elevated WBC, no Fever s/p prolonged course of Abx s/p admission at [facility] MRI showed no abscess but some inflammation that may be chronic in nature however pt with high CRP/ESR will consult Dr. Lozada for evaluate MRI findings ID consult as well Blood cultures ordered #ESRD with Hyperkalemia s/p dialysis yesterday evening with 2k bath hyperkalemia resolved s/p HD low k diet will continue HD on TTS schedule dose all meds for intermittent HD #Hypertension Continue Metoprolol/Nifedipine/Lasix hold before dialysis #CKD related Anemia Continue DAVON with HD Thank you Antwan Hurley DO
--- NOTE | 2016-06-11 15:47 | PN ---
Progress Note (short form) - Note Progress Note: ID consult dictated imp/reccd upper back paraspinal pain history of MRSA bacteremia/cervical osteomyelitis/abscess elevated inflammatory makrers 50 stephen old man with PMH of esrd/hd, DM, CAD, s/p TMA, MRSA bacteremia with cervical osteomyelitis- November 2015- transferred to [facility] where he was treated medically, discharged to [place] in early February still on iv antibiotics which he completed in early March has been feeling well until two days ago when he awoke with bilateral paraspinal upper back pain no associated falls or lifting chronic cough took some oral antibiotics last month for his cough no fevers or chills NO NECK PAIN Laboratory Tests 12/14/15 12/14/15 12/29/15 13:45 16:00 18:25 ESR C-Reactive Protein 21.2 H D 22.9 H D 9.0 H D 12/30/15 06/10/16 06/10/16 06:15 10:50 11:13 ESR > 130 H 81 H C-Reactive Protein 1.0 H D 06/11/16 07:00 ESR C-Reactive Protein 1.1 H D all his inflammatory markers are improved from 12/2015 agree with blood cultures and neurosurgery opinion- pain is all paraspinal and bilateral, no bony tenderness he has a chronic ulcer of the left TMA stump- there is some bloody serous drainage - sent for culture will follow with you no need for antibiotcs at this time
--- NOTE | 2016-06-11 18:39 | CONS ---
DATE OF CONSULTATION: DATE OF DICTATION: 06/11/2016 REQUESTED BY: This is a 50-year-old man with end-stage renal disease, on dialysis. He has a left AV fistula. He has a history of diabetes. He has a history of MRSA bacteremia in November and December 2015 with a cervical osteomyelitis for which he was sent to [facility] in early December. He states that he was hospitalized until early February, discharged then to [facility] until early March and states he received antibiotics for the entire time. He has been doing well at home since then. He has a chronic ulcer as well on his transmetatarsal amputation site, for which he is followed by Dr. Bhatti. Two days ago, he developed some paraspinal pain in his upper back, mainly in his upper thoracic area. The pain worsened, and he came to the emergency room. He has no neck pain. He has no fevers or chills. He has been coughing. He states he took some oral antibiotics about a month ago for cough but continues to have a cough at this time. He has not had any nausea, vomiting or diarrhea. PAST MEDICAL HISTORY: Notable for coronary artery disease, congestive heart failure, hypertension, hyperlipidemia, GERD, GI bleed, end-stage renal disease on dialysis via left arm fistula, anxiety, left metatarsal amputation, gout, diabetes, CABG in 2010. He has 3 stents. There is no history of any joint replacement, pacemaker or valve replacement. He has no known drug allergies. SOCIAL HISTORY: He is a former smoker. No history of substance use. He is retired. 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 MEDICATIONS AN OUTPATIENT: The updated list is currently not available. FAMILY HISTORY: Notable for diabetes in his mother and heart disease in his father. REVIEW OF SYSTEMS: As per HPI. He reports the ulcer on his foot has been improving, and he has had local care with Dr. Bhatti. PHYSICAL EXAMINATION: General: He is awake and alert. Vital signs: Temperature is 98.9, pulse is 81, blood pressure 118/71, respiratory rate is 18. His O2 saturation is 95% on room air. HEENT: He is normocephalic. His left eye is injected, and he reports he has no vision in that eye. He has no thrush. Skin: His AV fistula in his left arm has a palpable thrill. He has evidence on his skin of extremely dry skin of his legs, which are peeling and scaling as well as a scattered, healing macular rash on his forearms, which he states he got at the time of his MRSA bacteremia. Neck: His neck is supple. Heart: Regular rate and rhythm. Lungs: Clear to auscultation. He has diminished breath sounds at the bases. Abdomen: Soft, nontender. Extremities: Notable for no edema. His left leg has a 1.5-2 cm opening on the lateral aspect of his TMA. There is an open ulcer from which there is some bloody serous drainage. There is no purulence. There is no associated cellulitis. LABORATORIES: Notable for a white count of 6.4, hemoglobin 10.8, platelets of 315. BUN 50, creatinine 6. His CRP is 1.1. His sedimentation rate is 81. He had an MRI of his thoracic and cervical spine done that showed no evidence of disk herniation or spinal stenosis. Normal signal intensity of the cord. He has T11 and T12 loss of disk space height, and it was unchanged from the thoracic MRI from December. Cervical MRI showed C5-C6 loss of height of C6 and loss of C5 vertebral body height as well. There was increased signal density of the disk space. In summary, this is a 50-year-old man admitted with upper back discomfort. I was asked to see him for elevated inflammatory markers. When looking back at his prior admission, his inflammatory markers are all markedly improved from December. His sedimentation rate continues to remain elevated, but this may be due to his chronic anemia and dialysis. His CRP has improved from 21 to 1. I would agree with blood cultures at this time and a neurosurgical opinion. The pain is all paraspinal and bilateral. He has no bony tenderness, and he has no neck pain, which he had with his prior infection. He has a chronic ulcer of the left TMA site. There is some bloody serous drainage that was sent for culture. RECOMMENDATIONS: Withhold on any empiric antibiotics at this time. Will make further recommendations based on his clinical course. We will follow with you. STEFANY HEMPHILL M.D. [id number]
--- NOTE | 2016-06-11 21:20 | PN ---
Progress Note, Physician Chief Complaint: Pt had HD and is better now Back pain is getting better No Fever History of Present Illness: Pt MRI no evidenece of any abcess No Fever - Current Medication List Current Medications: Active Medications Albuterol/Ipratropium (Duoneb -) 1 amp NEB QIDR [facility] Last Admin: 06/11/16 17:57 Dose: 1 amp Aspirin (Ecotrin -) 81 mg PO DAILY [facility] Last Admin: 06/11/16 10:18 Dose: 81 mg Atorvastatin Calcium (Lipitor -) 80 mg PO HS [facility] Bisacodyl (Dulcolax -) 5 mg PO DAILY PRN PRN Reason: CONSTIPATION Cyclobenzaprine HCl (Flexeril -) 5 mg PO TID PRN PRN Reason: BACK PAIN Stop: 06/20/16 23:39 Epoetin Lauri (Epogen -) 4,000 units IVPUSH ONCE ONE Stop: 06/12/16 08:01 Furosemide (Lasix -) 80 mg PO DAILY [facility] Last Admin: 06/11/16 10:18 Dose: 80 mg Hydromorphone HCl (Dilaudid -) 4 mg PO Q6H PRN PRN Reason: PAIN Last Admin: 06/11/16 06:48 Dose: 4 mg Insulin Aspart (Novolog Vial Sliding Scale -) 1 vial SQ TIDAC [facility] PRN Reason: Protocol Last Admin: 06/11/16 16:57 Dose: 4 units Insulin Detemir (Levemir Vial) 15 units SQ HS [facility] Stop: 06/16/16 18:00 Isosorbide Mononitrate (Imdur -) 30 mg PO DAILY [facility] Last Admin: 06/11/16 10:25 Dose: Not Given Lidocaine (Lidoderm Patch -) 1 patch TP DAILY [facility] Last Admin: 06/11/16 10:19 Dose: 1 patch Magnesium Oxide (Mag-Ox -) 400 mg PO BID [facility] Last Admin: 06/11/16 10:19 Dose: 400 mg Metoprolol Succinate (Toprol Xl -) 100 mg PO DAILY [facility] Last Admin: 06/11/16 10:25 Dose: Not Given Nifedipine (Procardia Xl -) 60 mg PO DAILY [facility] Nitroglycerin (Nitrostat -) 0.4 mg SL Q5M PRN PRN Reason: FOR CHEST PAIN Pantoprazole Sodium (Protonix -) 20 mg PO BID [facility] Last Admin: 06/11/16 10:18 Dose: 20 mg Polyethylene Glycol (Miralax (For Daily Use) -) 17 gm PO DAILY [facility] Last Admin: 06/11/16 10:25 Dose: Not Given Tamsulosin HCl (Flomax -) 0.4 mg PO DAILY@0830 [facility] Last Admin: 06/11/16 10:18 Dose: 0.4 mg - Objective Vital Signs: Vital Signs Temperature 97.7 F 06/11/16 14:25 Pulse Rate 82 06/11/16 14:25 Respiratory Rate 16 06/11/16 14:25 Blood Pressure 103/56 06/11/16 14:25 O2 Sat by Pulse Oximetry (%) 95 06/11/16 10:00 Constitutional: Yes: No Distress Eyes: Yes: Conjunctiva Clear, EOM Intact HENT: Yes: Atraumatic, Normocephalic Neck: Yes: Supple, Trachea Midline Cardiovascular: Yes: Regular Rate and Rhythm, S1, S2 Respiratory: Yes: Regular, CTA Bilaterally Gastrointestinal: Yes: Normal Bowel Sounds, Soft Wound/Incision: Yes: Other (Foot S/P TMT Amputation) Labs: CBC, BMP 06/11/16 07:00 06/11/16 07:00 Problem List - Problems (1) Acute hyperkalemia Code(s): E87.5 - HYPERKALEMIA (2) ESRD on hemodialysis Code(s): N18.6 - END STAGE RENAL DISEASE Z99.2 - DEPENDENCE ON RENAL DIALYSIS (3) Diabetes mellitus Code(s): E11.9 - TYPE 2 DIABETES MELLITUS WITHOUT COMPLICATIONS Qualifiers: Diabetes mellitus type: type 2 Diabetes mellitus complication status: with kidney complications Diabetes mellitus complication detail: with chronic kidney disease (4) 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A (5) Osteomyelitis Code(s): M86.9 - OSTEOMYELITIS, UNSPECIFIED (6) Back pain Code(s): M54.9 - DORSALGIA, UNSPECIFIED Qualifiers: Chronicity: acute (7) CHF (congestive heart failure) Code(s): I50.9 - HEART FAILURE, UNSPECIFIED Assessment/Plan (1) Acute hyperkalemia;Pt had HD today better Code(s): E87.5 - HYPERKALEMIA (2) ESRD on hemodialysis Code(s): N18.6 - END STAGE RENAL DISEASE Z99.2 - DEPENDENCE ON RENAL DIALYSIS (3) 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
--- NOTE | 2016-06-11 21:48 | DS ---
Physical Examination Vital Signs: Vital Signs Temperature 97.7 F 06/11/16 14:25 Pulse Rate 82 06/11/16 14:25 Respiratory Rate 16 06/11/16 14:25 Blood Pressure 103/56 06/11/16 14:25 O2 Sat by Pulse Oximetry (%) 95 06/11/16 10:00 Constitutional: Yes: No Distress Eyes: Yes: Other (Decreased visual acuity) HENT: Yes: Atraumatic, Normocephalic Neck: Yes: Supple, Trachea Midline Cardiovascular: Yes: Regular Rate and Rhythm, S1, S2 Respiratory: Yes: Regular, CTA Bilaterally Gastrointestinal: Yes: Normal Bowel Sounds, Soft Musculoskeletal: Yes: Back Pain Labs: CBC, BMP 06/11/16 07:00 06/11/16 07:00 Discharge Summary Reason For Visit: RENAL FAILURE,NECK PAIN,HYPERKAL,ESRD Current Active Problems Acute hyperkalemia (Acute) Conjunctivitis (Acute) Diabetes mellitus (Acute) ESRD on hemodialysis (Acute) Elevated cholesterol (Acute) Elevated troponin I level (Acute) Epistaxis (Acute) Hyperkalemia (Acute) Influenza (Acute) Neck pain (Acute) Osteomyelitis (Acute) Pain (Acute) Pneumonia (Acute) Posterior neck pain (Acute) Sepsis (Acute) Systolic and diastolic CHF, chronic (Acute) Upper abdominal pain (Acute) Condition: Stable - Instructions Diet, Activity, Other Instructions: Pt was seen by ID Pt MRI and CRP, WBC count not suggestive of abcess Pt had HD and Hyperkalemia is corrected Pt will be DCed home on 06/12/16 Pt will FU in My office on 06/19 16 on afternoon 3PM Referrals: Yamilka Hernandez MD [Primary Care Provider] - Shlomo Jones MD [Staff Physician] - Disposition: HOME - Home Medications Comprehensive Discharge Medication List: Ambulatory Orders Aspirin [ASA -] 81 mg PO DAILY 11/13/14 Isosorbide Mononitrate [Imdur -] 30 mg PO DAILY 11/13/14 Lisinopril [Prinivil] 5 mg PO DAILY 11/13/14 Pantoprazole Sodium [Protonix] 20 mg PO BID #20 tablet. 02/13/15 Atorvastatin Ca [Lipitor] 80 mg PO HS tablet 12/22/15 Nifedipine ER [Procardia XL -] 60 mg PO DAILY tab.er.24 12/22/15 Albuterol 0.083% Nebulizer Apryl [Ventolin 0.083% Nebulizer Soln -] 1 amp NEB QID PRN 03/26/16 Bisacodyl [Laxative] 5 mg PO BID 03/26/16 Cyclobenzaprine HCl [Flexeril -] 5 mg PO TID 03/26/16 Furosemide [Lasix] 80 mg PO DAILY 03/26/16 Hydralazine HCl [Apresoline -] 100 mg PO TID 03/26/16 Hydromorphone [Dilaudid -] 4 mg PO Q6H 03/26/16 Insulin Glargine,Hum.rec.anlog [Lantus (nf)] 15 units SQ HS 03/26/16 Lidocaine 5% Patch [Lidoderm Patch -] 1 patch TP DAILY 03/26/16 Magnesium Oxide 400 mg PO TID 03/26/16 Metoprolol Succinate [Toprol Xl] 100 mg PO DAILY 03/26/16 Nitroglycerin Sublingual [Nitrostat -] 0.4 mg SL PRN 03/26/16 Polyethylene Glycol 3350 [Gavilax] 17 gm PO HS 03/26/16 Sevelamer Carbonate [Renvela] 800 mg PO TID 03/26/16 Tamsulosin HCl [Flomax] 0.4 mg PO HS 03/26/16 Tramadol HCl [Ultram -] 50 mg PO Q6H #20 tablet MDD 4 05/02/16
[2016-06-11] MEDS ORDERED: ATORVASTATIN CA 80 MG TABLET (FP) PO SCH (22:00)
[2016-06-11] MEDS ORDERED: INSULIN DETEMIR 100 UNITS/ML MDV SQ SCH (22:00)
[2016-06-12] MEDS: ALBUTEROL SO4 2.5/IPRATROPIUM 0.5 INH SOL 3 ML VIAL.NEB. NEB SCH ×3 (00:18→11:30)
[2016-06-12] MEDS ORDERED: INSULIN (NOVOLOG) ASPART 100 UNITS/ML 10ML VIAL ONE (06:44)
[2016-06-12] MEDS: INSULIN SLIDING SCALE (NOVOLOG) 1 VIAL SQ SCH ×2 (06:49→11:30)
[2016-06-12] MEDS: TAMSULOSIN HCL 0.4 MG CAP.ER.24H (FP) PO SCH ×2 (08:30→15:01)
[2016-06-12] MEDS ORDERED: EPOETIN ALFA 2,000 UNITS/1 ML VIAL IVPUSH ONE (09:00)
[2016-06-12] MEDS: ASPIRIN COATED 81 MG TABLET.EC PO SCH ×2 (10:00→15:01)
[2016-06-12] MEDS: PANTOPRAZOLE 20 MG TABLET (FP) PO SCH (10:00)
[2016-06-12] MEDS: POLYETHYLENE GLYCOL 3350 119 GM BTL PO SCH (10:00)
[2016-06-12] MEDS: METOPROLOL SUCCINATE 100 MG TAB.SR.24H (FP) PO SCH ×2 (10:00→15:01)
[2016-06-12] MEDS: NIFEdipine E.R 60 MG TABLET (UD) PO SCH ×2 (10:00→15:01)
[2016-06-12] MEDS: ISOSORBIDE MONONITRATE 30 MG TAB.SR.24H (FP) PO SCH ×2 (10:00→15:01)
[2016-06-12] MEDS: LIDOCAINE 5% TOPICAL PATCH TP SCH (10:00)
[2016-06-12] MEDS: FUROSEMIDE 40 MG TABLET (FP) PO SCH ×2 (10:00→15:01)
[2016-06-12 11:21] LABS: MCH 32.2 pg (25.7-33.7); MCHC 33.7 g/dl (32.0-35.9); MEAN CELL VOLUME 95.6 fl (80-96); MEAN PLT VOLUME 7.9 fl (7.5-11.1); PLATELET COUNT 263 K/MM3 (134-434); RDW 16.3 % (11.9-15.9); WHITE BLOOD COUNT 6.8 K/mm3 (4.0-10.0)
--- NOTE | 2016-06-12 11:34 | PN ---
Progress Note (short form) - Note Progress Note: Renal Follow up for ESRD on HD Pt seen and examined during dialysis BP stable AVF with good function no sob or chest pain denies any neck pain, fever, chills Vital Signs Temperature 98.2 F 06/12/16 09:45 Pulse Rate 93 H 06/12/16 11:10 Respiratory Rate 18 06/12/16 11:10 Blood Pressure 131/81 06/12/16 11:10 O2 Sat by Pulse Oximetry (%) 95 06/11/16 21:00 Intake & Output 06/09/16 06/10/16 06/11/16 06/12/16 23:59 23:59 23:59 23:59 Intake Total 50 980 500 Balance 50 980 500 Weight 185 lb 12.8 oz 189 lb 8 oz Gen: NAD, awake and alert CVS: RRR, No M/R Lungs: CTA, no rales or wheeze Abd: soft NT/ND Ext: Left TMA, No edema, clubbing or cyanosis CBC, BMP 06/12/16 10:15 Current Medications Albuterol/Ipratropium (Duoneb -) 1 amp NEB QIDR [facility] Last Admin: 06/12/16 06:23 Dose: 1 amp Aspirin (Ecotrin -) 81 mg PO DAILY [facility] Last Admin: 06/11/16 10:18 Dose: 81 mg Atorvastatin Calcium (Lipitor -) 80 mg PO HS [facility] Last Admin: 06/11/16 22:26 Dose: 80 mg Bisacodyl (Dulcolax -) 5 mg PO DAILY PRN PRN Reason: CONSTIPATION Cyclobenzaprine HCl (Flexeril -) 5 mg PO TID PRN PRN Reason: BACK PAIN Stop: 06/20/16 23:39 Furosemide (Lasix -) 80 mg PO DAILY [facility] Last Admin: 06/11/16 10:18 Dose: 80 mg Hydromorphone HCl (Dilaudid -) 4 mg PO Q6H PRN PRN Reason: PAIN Last Admin: 06/12/16 05:41 Dose: 4 mg Insulin Aspart (Novolog Vial Sliding Scale -) 1 vial SQ TIDAC [facility] PRN Reason: Protocol Last Admin: 06/12/16 06:49 Dose: 4 units Insulin Detemir (Levemir Vial) 15 units SQ [facility] Stop: 06/16/16 18:00 Last Admin: 06/11/16 22:25 Dose: 15 units Isosorbide Mononitrate (Imdur -) 30 mg PO DAILY [facility] Last Admin: 06/11/16 10:25 Dose: Not Given Lidocaine (Lidoderm Patch -) 1 patch TP DAILY [facility] Last Admin: 06/11/16 10:19 Dose: 1 patch Metoprolol Succinate (Toprol Xl -) 100 mg PO DAILY [facility] Last Admin: 06/11/16 10:25 Dose: Not Given Nifedipine (Procardia Xl -) 60 mg PO DAILY [facility] Nitroglycerin (Nitrostat -) 0.4 mg SL Q5M PRN PRN Reason: FOR CHEST PAIN Pantoprazole Sodium (Protonix -) 20 mg PO BID [facility] Last Admin: 06/11/16 22:26 Dose: 20 mg Polyethylene Glycol (Miralax (For Daily Use) -) 17 gm PO DAILY [facility] Last Admin: 06/11/16 10:25 Dose: Not Given Tamsulosin HCl (Flomax -) 0.4 mg PO DAILY@0830 [facility] Last Admin: 06/11/16 10:18 Dose: 0.4 mg A/P 50 year old Gentleman with PMhx of ESRD on HD, DM, Hypertension, PVD recent admission at [place] for Abcess in cervial spine requiring prolonged course of Abx presents with complaints severe shoulder pain that started the night before admission and found to have K of 6.6. #Shoulder Pain/Hx of Retropharygenal abscess/Cervial Osteomylitis/Discitis s/p Blood cultures and wound culture collected yesterday no neck pain at this time pt to follow up with Neuro Sx that he saw at [facility] on discharge #ESRD with Hyperkalemia Tolerating dialysis well today Goal UF is 2-2.5L to resume dialysis as outpatient on discharge #Hypertension Continue Metoprolol/Nifedipine/Lasix hold before dialysis #CKD related Anemia Continue DAVON with HD Thank you Antwan Hurley DO
[2016-06-12 11:57] LABS: ALBUMIN 3.2 g/dl (3.4-5.0); CALCIUM 7.9 mg/dL (8.5-10.1)
[2016-06-12 12:06] LABS: BILIRUBIN,TOTAL 0.5 mg/dL (0.2-1.0); COCKROFT - GAULT 12.79; PHOSPHOROUS 8.6 mg/dL (2.5-4.9); TOT PROT 7.4 g/dl (6.4-8.2)
[2016-06-12 12:08] LABS: CREATININE 8.4 mg/dL (0.7-1.3)
--- NOTE | 2016-06-12 12:59 | PN ---
Progress Note, Physician History of Present Illness: Awake,alert Seen on hemodialysis No complaints No fever/ chills - Current Medication List Current Medications: Active Medications Albuterol/Ipratropium (Duoneb -) 1 amp NEB QIDR [facility] Last Admin: 06/12/16 06:23 Dose: 1 amp Aspirin (Ecotrin -) 81 mg PO DAILY [facility] Last Admin: 06/12/16 10:00 Dose: Not Given Atorvastatin Calcium (Lipitor -) 80 mg PO [facility] Last Admin: 06/11/16 22:26 Dose: 80 mg Bisacodyl (Dulcolax -) 5 mg PO DAILY PRN PRN Reason: CONSTIPATION Cyclobenzaprine HCl (Flexeril -) 5 mg PO TID PRN PRN Reason: BACK PAIN Stop: 06/20/16 23:39 Furosemide (Lasix -) 80 mg PO DAILY [facility] Last Admin: 06/12/16 10:00 Dose: Not Given Hydromorphone HCl (Dilaudid -) 4 mg PO Q6H PRN PRN Reason: PAIN Last Admin: 06/12/16 05:41 Dose: 4 mg Insulin Aspart (Novolog Vial Sliding Scale -) 1 vial SQ TIDAC [facility] PRN Reason: Protocol Last Admin: 06/12/16 11:30 Dose: Not Given Insulin Detemir (Levemir Vial) 15 units SQ [facility] Stop: 06/16/16 18:00 Last Admin: 06/11/16 22:25 Dose: 15 units Isosorbide Mononitrate (Imdur -) 30 mg PO DAILY [facility] Last Admin: 06/12/16 10:00 Dose: Not Given Lidocaine (Lidoderm Patch -) 1 patch TP DAILY [facility] Last Admin: 06/12/16 10:00 Dose: Not Given Metoprolol Succinate (Toprol Xl -) 100 mg PO DAILY [facility] Last Admin: 06/12/16 10:00 Dose: Not Given Nifedipine (Procardia Xl -) 60 mg PO DAILY [facility] Last Admin: 06/12/16 10:00 Dose: Not Given Nitroglycerin (Nitrostat -) 0.4 mg SL Q5M PRN PRN Reason: FOR CHEST PAIN Pantoprazole Sodium (Protonix -) 20 mg PO BID [facility] Last Admin: 06/12/16 10:00 Dose: Not Given Polyethylene Glycol (Miralax (For Daily Use) -) 17 gm PO DAILY [facility] Last Admin: 06/12/16 10:00 Dose: Not Given Tamsulosin HCl (Flomax -) 0.4 mg PO DAILY@0830 [facility] Last Admin: 06/12/16 08:30 Dose: Not Given - Objective Vital Signs: Vital Signs Temperature 98.2 F 06/12/16 09:45 Pulse Rate 93 H 06/12/16 12:10 Respiratory Rate 18 06/12/16 12:10 Blood Pressure 148/81 06/12/16 12:10 O2 Sat by Pulse Oximetry (%) 95 06/11/16 21:00 Constitutional: Yes: No Distress Eyes: Yes: Conjunctiva Clear Neck: Yes: Supple Cardiovascular: Yes: Regular Rate and Rhythm, S1, S2 Respiratory: Yes: CTA Bilaterally Gastrointestinal: Yes: Normal Bowel Sounds, Soft. No: Tenderness Extremities: Yes: Other (TMA stump site with dry ulcer Small amt expressible serous drainage) Labs: CBC, BMP 06/12/16 10:15 06/12/16 10:15 Assessment/Plan Chronic TMA stump site ulceration ESRD Wound c/s pending Observe off antibiotics
[2016-06-12 14:55] VITALS: BP 124/62; PULSE 96; TEMP 98.8
[2016-06-12 16:32] LABS: CREATININE 2.7 mg/dL (0.7-1.3)
[2016-06-13 06:06] LABS: HEP B SURFACE AB Reactive (.)
--- NOTE | 2016-06-15 12:39 | EKG ---
Test Reason : Blood Pressure : / mmHG Vent. Rate : 079 BPM Atrial Rate : 079 BPM P-R Int : 186 ms QRS Dur : 096 ms QT Int : 418 ms P-R-T Axes : 062 -18 093 degrees QTc Int : 479 ms NORMAL SINUS RHYTHM SEPTAL INFARCT (CITED ON OR BEFORE 13-DEC-2009) NON-SPECIFIC INTRA-VENTRICULAR CONDUCTION DELAY ABNORMAL ECG Confirmed by GREY FISCHER MD ([id number]) on 06/15/2016 12:39:23 PM Referred By: Confirmed By:GREY FISCHER MD
== END 2016-06-12 16:20 | disposition home or self-care (01) | DRG 291 ==
LOC: JER 08:39 → JERBED 14:12 → J4S 22:35
PROVIDERS: ADMIT Internal Medicine; ATTEND Internal Medicine
PROC: 5A1D60Z (ICD-10-PCS; principal; 2016-06-10)
DX: I13.2 Hypertensive heart and chronic kidney disease with heart failure and with stage 5 chronic kidney disease, or end stage renal disease (principal); N18.6 End stage renal disease; I50.42 Chronic combined systolic (congestive) and diastolic (congestive) heart failure; M46.22 Osteomyelitis of vertebra, cervical region; E11.22 Type 2 diabetes mellitus with diabetic chronic kidney disease; E87.5 Hyperkalemia; Z99.2 Dependence on renal dialysis; Z79.4 Long term (current) use of insulin; K21.9 Gastro-esophageal reflux disease without esophagitis; E11.621 Type 2 diabetes mellitus with foot ulcer; Z89.422 Acquired absence of other left toe(s); L97.529 Non-pressure chronic ulcer of other part of left foot with unspecified severity; D63.1 Anemia in chronic kidney disease
CPT/HCPCS: 36415; 71010-TC; 72141-TC; 72146-TC; 80048; 80053; 82565; 83735; 84100; 84520; 85025; 85027; 85651; 86140; 86704; 86706; 86708; 87040; 87070; 87186; 87205; 87340; 93005; 93010; 94640; 97116-GP; 97161-GP; 99284-25; J0885

== ENCOUNTER 2016-09-30 14:42 | Emergency (ER) | payer OTHER ==
[2016-09-30 14:47] VITALS: BMI 29.0
[2016-09-30] MEDS ORDERED: morphine CARPU-JECT 2 MG/1 ML DISP.SYRIN IVPUSH ONE ×2 (16:05→21:36)
[2016-09-30] MEDS ORDERED: ONDANSETRON 4 MG/2 ML VIAL IVPUSH ONE (16:05)
[2016-09-30] MEDS ORDERED: METOPROLOL TARTRATE 50 MG TABLET (FP) PO ONE (16:05)
[2016-09-30 16:47] LABS: URINE APPEARANCE CLEAR; URINE BILIRUBIN NEGATIVE (NEGATIVE); URINE BLOOD 1+ (NEGATIVE); URINE COLOR STRAW; URINE GLUCOSE (UA) 3+ (NEGATIVE); URINE KETONE NEGATIVE (NEGATIVE); URINE LEUK ESTERASE NEGATIVE (NEGATIVE); URINE NITRITE NEGATIVE (NEGATIVE); URINE UROBILINOGEN NEGATIVE mg/dL (0.2-1.0)
[2016-09-30 16:51] LABS: URINE PROTEIN 2+ (NEGATIVE)
--- NOTE | 2016-09-30 17:04 | PDOC ---
History of Present Illness - General Chief Complaint: Pain Stated Complaint: RT HIP PAIN Time Seen by Provider: 09/30/16 15:54 History Source: Patient Exam Limitations: No Limitations - History of Present Illness Travel History: No Initial Comments: 09/30/16 16:02 51-year-old male with history of end-stage renal disease currently on dialysis via left AV fistula presents to the ED with complaints of right lower quadrant right suprapubic pain that he describes as sharp and intermittent associated nausea and dysuria. Patient denies hematuria, fever, chills but does state mild abdominal distention. Patient denies change in bowel pattern, change in appetite , change in activity, or recent injury. Patient states had dialysis scheduled today at 10 AM but did not go secondary to the above discomfort and he has not taken his blood pressure medication today. Timing/Duration: reports: getting worse Quality: reports: moderate, cramping, sharpness Abdominal Pain Onset Location: reports: suprapubic Pain Radiation: reports: no radiation Activities at Onset: reports: none Aggravating Factors: improves with: None Alleviating Factors: improves with: None Past History - Travel Traveled outside of the country in the last 30 days: No Close contact w/someone who was outside of country & ill: No - Past Medical History Allergies/Adverse Reactions: Allergies Allergy/AdvReac Type Severity Reaction Status Date / Time No Known Drug Allergies Allergy Verified 06/10/16 08:55 Home Medications: Ambulatory Orders Aspirin [ASA -] 81 mg PO DAILY 11/13/14 Isosorbide Mononitrate [Imdur -] 30 mg PO DAILY 11/13/14 Lisinopril [Prinivil] 5 mg PO DAILY 11/13/14 Atorvastatin Ca [Lipitor] 80 mg PO HS tablet 12/22/15 Nifedipine ER [Procardia XL -] 60 mg PO DAILY tab.er.24 12/22/15 Albuterol 0.083% Nebulizer Apryl [Ventolin 0.083% Nebulizer Soln -] 1 amp NEB QID PRN 03/26/16 Cyclobenzaprine HCl [Flexeril -] 5 mg PO TID 03/26/16 Ferrous Sulfate 325 mg PO BID 03/26/16 Furosemide [Lasix] 80 mg PO DAILY 03/26/16 Hydralazine HCl [Apresoline -] 100 mg PO TID 03/26/16 Hydromorphone [Dilaudid -] 4 mg PO Q6H 03/26/16 Insulin Glargine,Hum.rec.anlog [Lantus (nf)] 15 units SQ HS 03/26/16 Magnesium Oxide 400 mg PO TID 03/26/16 Metoprolol Succinate [Toprol Xl] 100 mg PO DAILY 03/26/16 Nitroglycerin Sublingual [Nitrostat -] 0.4 mg SL PRN 03/26/16 Sevelamer Carbonate [Renvela] 800 mg PO TID 03/26/16 Tramadol HCl [Ultram -] 50 mg PO Q6H #20 tablet MDD 4 05/02/16 Indomethacin 50 mg PO BID 09/30/16 Anemia: Yes Asthma: No Cancer: No Cardiac Disorders: Yes ("silent [place]" CABG x 2 vessels 05/24/2010) CVA: No COPD: No CHF: Yes Dementia: No Diabetes: Yes Dialysis: Yes (--THU) GI Disorders: No Disorders: No HTN: Yes Hypercholesterolemia: Yes Liver Disease: No Suicide Attempt (Hx): No Seizures: No Thyroid Disease: No Other medical history: hemodialysis ,, thu - Surgical History Abdominal Surgery: No Appendectomy: No Cardiac Surgery: Yes (CABG 05/2010, cardiac stent may 2013) Cholecystectomy: No Lung Surgery: No Orthopedic Surgery: Yes (amputation of all toes on left foot) - Family Disease History Family Disease History: Diabetes: Mother, Heart Disease: Father - Immunization History Immunization Up to Date: Yes - Psycho/Social/Smoking Cessation Hx Anxiety: No Suicidal Ideation: No Smoking Status: No Smoking History: Never smoked Years of Tobacco Use: 0 Have you smoked in the past 12 months: No Number of Cigarettes Smoked Daily: 2 If you are a former smoker, when did you quit?: 1990 Cigars Per Day: 0 Information on smoking cessation initiated: No 'Breaking Loose' booklet given: 06/04/12 Hx Alcohol Use: No Drug/Substance Use Hx: No Substance Use Type: None Hx Substance Use Treatment: No Patient Lives Alone: No Lives with/in: spouse/SO Abd/GI Specific PMHX - Complaint Specific PMHX GERD: No Review of Systems - Review of Systems Able to Perform ROS?: Yes Constitutional: No: Symptoms Reported HEENTM: No: Symptoms Reported Respiratory: No: Symptoms reported Cardiac (ROS): No: Symptoms Reported ABD/GI: Yes: Nausea, Abdominal cramping. No: Diarrhea : No: Symptoms Reported Musculoskeletal: No: Symptoms Reported Integumentary: No: Symptoms Reported Neurological: No: Symptoms reported Endocrine: Yes: See HPI Hematologic/Lymphatic: Yes: See HPI *Physical Exam - Vital Signs Last Vital Signs Temp Pulse Resp BP Pulse Ox 98.1 F 93 H 20 186/104 95 09/30/16 14:45 09/30/16 14:45 09/30/16 14:45 09/30/16 14:45 09/30/16 14:45 - Physical Exam General Appearance: Yes: Nourished, Appropriately Dressed. No: Apparent Distress HEENT: positive: EOMI, NIKITA. negative: Pale Conjunctivae Respiratory/Chest: positive: Lungs Clear, Normal Breath Sounds. negative: Respiratory Distress, Accessory Muscle Use Cardiovascular: positive: Regular Rhythm, Regular Rate. negative: Murmur Gastrointestinal/Abdominal: positive: Soft, Tenderness (right suprapubic/ right lower quadrant. negative McBurney's. Negative psoas, negative Rosving) Musculoskeletal: negative: CVA Tenderness Extremity: positive: Normal Capillary Refill, Pedal Edema (trace bilateral) Integumentary: positive: Warm, Moist Neurologic: positive: Motor Strength 5/5 (ambulatory) ED Treatment Course - LABORATORY CBC & Chemistry Diagram: 09/30/16 16:45 09/30/16 16:45 - ADDITIONAL ORDERS Additional order review: Laboratory Results 09/30/16 16:30 Urine Color Straw Urine Appearance Clear Urine pH 6.0 Urine Protein 2+ H Urine Glucose (UA) 3+ H Urine Ketones Negative Urine Blood 1+ H Urine Nitrite Negative Urine Bilirubin Negative Urine Urobilinogen Negative Ur Leukocyte Esterase Negative Medical Decision Making - Medical Decision Making 09/30/16 17:07 Patient with end-stage renal disease on dialysis presenting with right lower quadrant right suprapubic pain along with dysuria and nausea. Patient concerning for UTI, urosepsis, obstruction, appendicitis, and infection. Patient ordered for labs, urine, analgesics, antiemetics, and will consider imaging once labs are resulted. Patient is followed by Dr. Yina Palomo's nephrology and Dr. Hernandez for primary care. 09/30/16 17:11 Laboratory Tests 09/30/16 16:30 Urine Protein 2+ H Urine Glucose (UA) 3+ H Urine Ketones Negative Urine Blood 1+ H Urine Nitrite Negative Ur Leukocyte Esterase Negative 09/30/16 17:35 Laboratory Tests 09/30/16 09/30/16 16:30 16:45 WBC 6.4 Hgb 10.8 L D Hct 32.3 L D Neutrophils % 72.7 Urine Protein 2+ H Urine Glucose (UA) 3+ H Urine Blood 1+ H Urine Nitrite Negative Ur Leukocyte Esterase Negative 09/30/16 18:50 Patient states feeling better. Patient requesting to leave. Received a phone call from lab that chemistry hemolyzed. We'll reorder including a lipase. Patient has dialysis scheduled for tomorrow at 9:30am
[2016-09-30] MEDS ORDERED: METOPROLOL TARTRATE 50 MG TABLET (FP) ONE (17:15)
[2016-09-30] MEDS ORDERED: morphine CARPU-JECT 4 MG/1 ML DISP.SYRIN ONE ×2 (17:15→21:40)
[2016-09-30] MEDS ORDERED: ONDANSETRON 4 MG/2 ML VIAL ONE (17:15)
[2016-09-30 17:22] LABS: BASOPHIL 0.7 % (0-2.0); EOSINOPHIL 6.7 % (0-4.5); MCH 31.6 pg (25.7-33.7); MCHC 33.3 g/dl (32.0-35.9); MEAN CELL VOLUME 94.8 fl (80-96); MEAN PLT VOLUME 8.2 fl (7.5-11.1); NEUTROPHILS 72.7 % (42.8-82.8); PLATELET COUNT 269 K/MM3 (134-434); RDW 14.8 % (11.9-15.9); WHITE BLOOD COUNT 6.4 K/mm3 (4.0-10.0)
[2016-09-30 19:21] LABS: URINE RBC 2 /hpf (0-3); URINE WBC 4 /hpf (3-5)
[2016-09-30 19:39] VITALS: BP 128/72; PULSE 66; TEMP 98.5
--- NOTE | 2016-09-30 20:08 | PDOC ---
*Physical Exam - Vital Signs Last Vital Signs Temp Pulse Resp BP Pulse Ox 98.5 F 66 20 128/72 98 09/30/16 19:30 09/30/16 19:30 09/30/16 19:30 09/30/16 19:30 09/30/16 19:30 - Physical Exam Comments: 09/30/16 20:07 Sign-out received from outgoing ER provider Louisa. Pt interviewed and examined. Ancillary studies reviewed. Awaiting chemistry and lipase. ED Treatment Course - LABORATORY CBC & Chemistry Diagram: 09/30/16 16:45 09/30/16 18:49 - ADDITIONAL ORDERS Additional order review: Laboratory Results 09/30/16 09/30/16 09/30/16 16:45 16:45 16:45 WBC RBC Hgb Hct MCV MCH MCHC RDW Plt Count MPV Neutrophils % Lymphocytes % Monocytes % Eosinophils % Basophils % Sodium Cancelled Potassium Cancelled Chloride Cancelled Carbon Dioxide Cancelled Anion Gap Cancelled BUN Cancelled Creatinine Cancelled Creat Clearance w eGFR Cancelled Random Glucose Cancelled Lactic Acid 0.7 Calcium Cancelled Total Bilirubin Cancelled AST Cancelled ALT Cancelled Alkaline Phosphatase Cancelled Total Protein Cancelled Albumin Cancelled Lipase Cancelled Urine Color Urine Appearance Urine pH Urine Protein Urine Glucose (UA) Urine Ketones Urine Blood Urine Nitrite Urine Bilirubin Urine Urobilinogen Ur Leukocyte Esterase Urine RBC Urine WBC Ur Epithelial Cells 09/30/16 09/30/16 16:45 16:30 WBC 6.4 RBC 3.41 L Hgb 10.8 L D Hct 32.3 L D MCV 94.8 MCH 31.6 MCHC 33.3 RDW 14.8 Plt Count 269 MPV 8.2 Neutrophils % 72.7 Lymphocytes % 12.8 D Monocytes % 7.1 Eosinophils % 6.7 H Basophils % 0.7 Sodium Potassium Chloride Carbon Dioxide Anion Gap BUN Creatinine Creat Clearance w eGFR Random Glucose Lactic Acid Calcium Total Bilirubin AST ALT Alkaline Phosphatase Total Protein Albumin Lipase Urine Color Straw Urine Appearance Clear Urine pH 6.0 Urine Protein 2+ H Urine Glucose (UA) 3+ H Urine Ketones Negative Urine Blood 1+ H Urine Nitrite Negative Urine Bilirubin Negative Urine Urobilinogen Negative Ur Leukocyte Esterase Negative Urine RBC 2 Urine WBC 4 Ur Epithelial Cells Rare 09/30/16 16:45 RBC 3.41 L MCV 94.8 MCHC 33.3 RDW 14.8 MPV 8.2 Neutrophils % 72.7 Lymphocytes % 12.8 D Monocytes % 7.1 Eosinophils % 6.7 H Basophils % 0.7 - Medications Given in the ED: ED Medications Discontinued Medications Generic Name Dose Route Start Last Admin Trade Name Zach PRN Reason Stop Dose Admin Metoprolol Tartrate 50 mg 09/30/16 16:05 09/30/16 17:24 Lopressor - PO 09/30/16 16:06 50 mg ONCE ONE Administration Morphine Sulfate 4 mg 09/30/16 16:05 09/30/16 17:24 Morphine Injection - IVPUSH 09/30/16 16:06 4 mg ONCE ONE Administration Ondansetron HCl 4 mg 09/30/16 16:05 09/30/16 17:24 Zofran Injection IVPUSH 09/30/16 16:06 4 mg ONCE ONE Administration *DC/Admit/Observation/Transfer Diagnosis at time of Disposition: Abdominal pain Qualifiers: Abdominal location: right lower quadrant Qualified Code(s): R10.31 - Right lower quadrant pain - Discharge Dispostion Disposition: HOME Condition at time of disposition: Stable Admit: No - Referrals Referrals: Yamilka Hernandez MD [Primary Care Provider] - - Patient Instructions Printed Discharge Instructions: DI for Abdominal Pain-Adult Additional Instructions: Please go to your dialysis appointment tomorrow morning as planned. Follow up with Dr. Hernandez by the end of the week. If you experience any worsening abdominal pain, fever, chills, vomiting, diarrhea, or any new or worsening symptoms, please return to the ER.
[2016-09-30 20:37] LABS: ALBUMIN 3.2 g/dl (3.4-5.0); ANION GAP 13 (8-16); BILIRUBIN,TOTAL 0.3 mg/dL (0.2-1.0); CALCIUM 8.3 mg/dL (8.5-10.1); CO2 22 mmol/L (21-32); GLUCOSE,RANDOM 267 mg/dL (74-106); SGOT/AST 10 U/L (15-37); SGPT/ALT 13 U/L (12-78); TOT PROT 7.6 g/dl (6.4-8.2)
[2016-09-30 20:43] LABS: ALK PHOS 288 U/L (45-117)
[2016-09-30 20:49] LABS: CREATININE 8.5 mg/dL (0.7-1.3)
[2016-09-30] MEDS ORDERED: SODIUM POLYSTYRENE SULFONATE 15 GM/60 ML BOTTLE PO ONE (21:11)
[2016-09-30] MEDS ORDERED: SODIUM POLYSTYRENE SULFONATE 15 GM/60 ML BOTTLE ONE (21:20)
--- NOTE | 2016-10-01 14:42 | EKG ---
Test Reason : Blood Pressure : / mmHG Vent. Rate : 074 BPM Atrial Rate : 074 BPM P-R Int : 192 ms QRS Dur : 104 ms QT Int : 434 ms P-R-T Axes : 065 -16 072 degrees QTc Int : 481 ms NORMAL SINUS RHYTHM POSSIBLE LEFT ATRIAL ENLARGEMENT ANTEROSEPTAL INFARCT (CITED ON OR BEFORE 13-DEC-2009) ABNORMAL ECG WHEN COMPARED WITH ECG OF 10-JUN-2016 14:59, NO SIGNIFICANT CHANGE WAS FOUND Confirmed by ADRIANNA OJEDA MD ([id number]) on 10/01/2016 2:41:35 PM Referred By: Confirmed By:ADRIANNA OJEDA MD
== END 2016-09-30 21:46 | disposition home or self-care (01) ==
LOC: JER 14:42
PROC: 3E033NZ Introduction of Analgesics, Hypnotics, Sedatives into Peripheral Vein, Percutaneous Approach (ICD-10-PCS; principal; 2016-09-30)
PROC: 3E033GC Introduction of Other Therapeutic Substance into Peripheral Vein, Percutaneous Approach (ICD-10-PCS; 2016-09-30)
DX: R10.31 Right lower quadrant pain (principal); I12.0 Hypertensive chronic kidney disease with stage 5 chronic kidney disease or end stage renal disease; E11.22 Type 2 diabetes mellitus with diabetic chronic kidney disease; N18.6 End stage renal disease; Z99.2 Dependence on renal dialysis; Z79.4 Long term (current) use of insulin; I25.2 Old myocardial infarction; I50.9 Heart failure, unspecified; D64.9 Anemia, unspecified; E78.00 Pure hypercholesterolemia, unspecified; Z79.82 Long term (current) use of aspirin; Z89.422 Acquired absence of other left toe(s)
CPT/HCPCS: 36415; 80053; 81003; 81015; 83605; 83690; 85025; 87086; 93005; 93010; 96374; 96375; 96376; 99284-25

== ENCOUNTER 2016-10-07 12:44 | Emergency (ER) | payer OTHER ==
[2016-10-07 12:55] VITALS: TEMP 98.1; BMI 29.9
--- NOTE | 2016-10-07 13:05 | PDOC ---
History of Present Illness - History of Present Illness Initial Comments: 10/07/16 14:26 The patient is a 51 yo M history HTN, CHF, PR s/p CABG, ESRD on HD, HLD, prior cervical spine osteomyelitis, and ICU admission for pneumonia in December, who presents to the emergency department with productive cough for two days with new onset of lightheadedness this morning.He reports starting a zpack yesterday prescribed by Dr. Hernandez. He states his cough is reproductive of green mucus. He also states his cough reproduces a pain to his right lateral hip. He states his cough, as well as some mild throat pain, is exacerbated with lying flat. He denies shortness of breath, however, admits to not being able to walk as far as he usually does. He reports one episode of emesis this morning after excessive coughing and reports the emesis as mucus, nonbloody. He states he missed his dialysis today because he was feeling unwell, however, has rescheduled dialysis for tomorrow. He denies chest pain, shortness of breath, headache and dizziness. He denies fever, chills, nausea, diarrhea and constipation. He denies dysuria, frequency, urgency and hematuria. Allergies: NKDA Social History: Denies toxic habits. PCP - Dr. Hernandez <Gia Morrison - Last Filed: 10/07/16 14:26> - General History Source: Patient Exam Limitations: No Limitations <Shana Rivera - Last Filed: 10/07/16 17:03> - General Chief Complaint: Lightheaded Stated Complaint: LIGHTHEADED Time Seen by Provider: 10/07/16 13:00 Past History <Gia Morrison - Last Filed: 10/07/16 14:26> - Past Medical History Anemia: Yes Asthma: No Cancer: No Cardiac Disorders: Yes ("silent PR" CABG x 2 vessels 05/24/2010) CVA: No COPD: No CHF: Yes Dementia: No Diabetes: Yes Dialysis: Yes () GI Disorders: No Disorders: No HTN: Yes Hypercholesterolemia: Yes Liver Disease: No Suicide Attempt (Hx): No Seizures: No Thyroid Disease: No - Surgical History Abdominal Surgery: No Appendectomy: No Cardiac Surgery: Yes (CABG 05/2010, cardiac stent may 2013) Cholecystectomy: No Lung Surgery: No Orthopedic Surgery: Yes (amputation of all toes on left foot) - Family Disease History Family Disease History: Diabetes: Mother, Heart Disease: Father - Immunization History Immunization Up to Date: Yes - Psycho/Social/Smoking Cessation Hx Anxiety: No Suicidal Ideation: No Smoking Status: No Smoking History: Never smoked Years of Tobacco Use: 0 Have you smoked in the past 12 months: No Number of Cigarettes Smoked Daily: 2 If you are a former smoker, when did you quit?: 1989 Cigars Per Day: 0 Information on smoking cessation initiated: No 'Breaking Loose' booklet given: 06/04/12 Hx Alcohol Use: No Drug/Substance Use Hx: No Substance Use Type: None Hx Substance Use Treatment: No <Shana Rivera - Last Filed: 10/07/16 17:03> - Past Medical History Allergies/Adverse Reactions: Allergies Allergy/AdvReac Type Severity Reaction Status Date / Time No Known Drug Allergies Allergy Verified 10/07/16 12:51 Home Medications: Ambulatory Orders Aspirin [ASA -] 81 mg PO DAILY 11/13/14 Isosorbide Mononitrate [Imdur -] 30 mg PO DAILY 11/13/14 Lisinopril [Prinivil] 5 mg PO DAILY 11/13/14 Atorvastatin Ca [Lipitor] 80 mg PO HS tablet 12/22/15 Nifedipine ER [Procardia XL -] 60 mg PO DAILY tab.er.24 12/22/15 Albuterol 0.083% Nebulizer Apryl [Ventolin 0.083% Nebulizer Soln -] 1 amp NEB QID PRN 03/26/16 Cyclobenzaprine HCl [Flexeril -] 5 mg PO TID 03/26/16 Ferrous Sulfate 325 mg PO BID 03/26/16 Furosemide [Lasix] 80 mg PO DAILY 03/26/16 Hydralazine HCl [Apresoline -] 100 mg PO TID 03/26/16 Insulin Glargine,Hum.rec.anlog [Lantus (nf)] 15 units SQ HS 03/26/16 Magnesium Oxide 400 mg PO TID 03/26/16 Metoprolol Succinate [Toprol Xl] 100 mg PO DAILY 03/26/16 Nitroglycerin Sublingual [Nitrostat -] 0.4 mg SL PRN 03/26/16 Sevelamer Carbonate [Renvela] 800 mg PO TID 03/26/16 Tramadol HCl [Ultram -] 50 mg PO Q6H #20 tablet MDD 4 05/02/16 Indomethacin 50 mg PO BID 09/30/16 Guaifenesin/Codeine Phosphate [Guaifenesin-Codeine Syrup] 10 ml PO Q6H PRN #120 ml MDD 40ml 10/07/16 Review of Systems - Review of Systems Able to Perform ROS?: Yes Comments:: 10/07/16 14:26 CONSTITUTIONAL: Absent: fever, no chills, no fatigue EYES: Absent: visual changes ENT: Absent: ear pain, no sore throat CARDIOVASCULAR: (+) lightheadedness. Absent: chest pain, no palpitations RESPIRATORY: (+) productive cough, Absent: no SOB GASTROINTESTINAL: Absent: abdominal pain, no nausea, no constipation, no diarrhea GENITOURINARY: Absent: dysuria, no frequency, no hematuria MUSCULOSKELETAL: Absent: back pain, no arthralgia, no myalgia SKIN: Absent: rash NEURO: Absent: headache <Gia Morrison - Last Filed: 10/07/16 14:26> *Physical Exam - Vital Signs Last Vital Signs Temp Pulse Resp BP Pulse Ox 98.1 F 83 18 145/83 99 10/07/16 12:52 10/07/16 14:04 10/07/16 14:04 10/07/16 14:04 10/07/16 14:05 - Physical Exam Comments: 10/07/16 14:27 GENERAL: The patient is in no acute distress. HEAD: Normal with no signs of trauma. EYES: (+) blind in left eye. left eye is injected and erythematous. PERRLA, EOMI , sclera anicteric, ENT: Ears normal, nares patent, oropharynx clear without exudates. Moist mucous membranes. NECK: Normal range of motion, supple without lymphadenopathy, JVD, or masses. LUNGS: Breath sounds equal, clear to auscultation bilaterally. No wheezes, and no crackles. HEART: Regular rate and rhythm, normal S1 and S2 without murmur, rub or gallop. ABDOMEN: Soft, nontender, normoactive bowel sounds. No guarding, no rebound. No masses palpable. EXTREMITIES: (+) left arm fistula. Normal range of motion, no edema. No clubbing or cyanosis. No erythema, or tenderness. NEUROLOGICAL: Cranial nerves II through XII grossly intact. Normal speech. No focal neurological deficits. MUSCULOSKELETAL: (+) right hip ttp. Back non-tender to palpation, no CVA tenderness SKIN: Warm, Dry, normal turgor, no rashes or lesions noted. <Gia Morrison - Last Filed: 10/07/16 14:26> - Vital Signs Last Vital Signs Temp Pulse Resp BP Pulse Ox 98.1 F 83 18 149/87 100 10/07/16 12:52 10/07/16 12:52 10/07/16 12:52 10/07/16 12:52 10/07/16 12:52 <Shana Rivera - Last Filed: 10/07/16 17:03> Heart Score/ECG Review #1 ECG reviewed & interpreted by me at: 14:43 10/07/16 14:43 Twelve-lead EKG was performed and reviewed by me. There is normal sinus rhythm with a normal rate of 84 bpm. The axis is normal. The intervals are normal. Q waves v2, v3. There are no ST or T wave abnormalities. <Shana Rivera - Last Filed: 10/07/16 17:03> ED Treatment Course - LABORATORY CBC & Chemistry Diagram: 10/07/16 13:22 10/07/16 13:22 - ADDITIONAL ORDERS Additional order review: Laboratory Results 10/07/16 13:22 Sodium Cancelled Potassium Cancelled Chloride Cancelled Carbon Dioxide Cancelled Anion Gap Cancelled BUN Cancelled Creatinine Cancelled Creat Clearance w eGFR Cancelled Random Glucose Cancelled Calcium Cancelled Total Bilirubin Cancelled AST Cancelled ALT Cancelled Alkaline Phosphatase Cancelled Creatine Kinase Cancelled Troponin I Cancelled Total Protein Cancelled Albumin Cancelled 10/07/16 13:22 RBC 3.47 L MCV 94.5 MCHC 32.9 RDW 14.8 MPV 8.2 Neutrophils % 64.3 Lymphocytes % 15.0 Monocytes % 10.8 H Eosinophils % 8.6 H Basophils % 1.3 - Medications Given in the ED: ED Medications Discontinued Medications Generic Name Dose Route Start Last Admin Trade Name Freq PRN Reason Stop Dose Admin Ciprofloxacin 2 drop 10/07/16 14:15 10/07/16 14:16 Ciloxan 0.3% Eye Drops - OS 10/07/16 14:16 2 drop NOW ONE Administration Tobramycin Sulfate 2 drop 10/07/16 14:09 10/07/16 14:16 Tobrex Ophthalmic Solution - OS 10/07/16 14:10 Not Given ONCE ONE <Gia Morrison - Last Filed: 10/07/16 14:26> - LABORATORY CBC & Chemistry Diagram: 10/07/16 13:22 10/07/16 14:30 <Shana Rivera - Last Filed: 10/07/16 17:03> Medical Decision Making - Medical Decision Making 10/07/16 13:05 A portion of this note was documented by scribe services under my direction. I have reviewed the details of the note, within reason, and agree with the documentation with the following case summary and management plan written by me. Nursing documentation reviewed and incorporated into medical decision making This is a 51 yo M with a history of ESRD on HD, CAD s/p CABG, DM, HTN, HLD Pt presents to the ER with a complaint of light headedness No chest pain No abdominal pain Tolerating po, pt is nauseous No vomiting No diarrhea No fevers or chills Pt has had a cough Was seen by PMD who gave Azithromycin (today is day 2 of therapy) 10/07/16 14:40 Laboratory Tests 09/30/16 10/07/16 16:45 13:22 WBC 6.4 5.7 Hgb 10.8 L D 10.8 L Hct 32.3 L D 32.8 L Plt Count 269 258 10/07/16 15:49 Laboratory Tests 10/07/16 14:30 Sodium 136 Potassium 4.4 Chloride 98 Carbon Dioxide 22 Anion Gap 16 BUN 103 H Creatinine 9.0 H* Random Glucose 230 H Calcium 7.7 L Troponin I 0.02 D Albumin 3.0 L 10/07/16 16:28 CXR: chronic Left lower lobe consolidation Case reviewed with Dr Pickett Will plan to discharge to home Pt to take cough medicines Follow up with PMD Clinical impression: cough <Shana Rivera - Last Filed: 10/07/16 17:03> *DC/Admit/Observation/Transfer - Attestations Scribe Attestion: 10/07/16 14:31 Documentation prepared by Gia Morrison, acting as medical technologist prn for Shana Rivera MD <Gia Morrison - Last Filed: 10/07/16 14:26> - Discharge Dispostion Admit: No <Shana Rivera - Last Filed: 10/07/16 17:03> Diagnosis at time of Disposition: Weakness, Cough - Discharge Dispostion Disposition: HOME Condition at time of disposition: Stable - Prescriptions Prescriptions: Guaifenesin/Codeine Phosphate [Guaifenesin-Codeine Syrup] 10 ml PO Q6H PRN #120 ml MDD 40ml PRN Reason: Cough - Referrals Referrals: Yamilka Hernandez MD [Primary Care Provider] - - Patient Instructions Printed Discharge Instructions: DI for Cough -- Adult Additional Instructions: Thank you for coming in to the ER today You x ray does not demonstrate new findings however you should continue to take the Azithromycin for your cough Please also take the other medication for your cough Please apply eye drops to your left eye - 2 drops every 6 hours for the next 4 days Please monitor yourself for fevers and chills (if you feel very cold, please take your temperature) If your temperature is greater than 100.6 please contact your physician Please be sure to go to dialysis as you have already planned Please also, follow up with Dr Pickett THIS ThursdayOCTOBER 09 Please feel free to come back to the ER for ANY concerns or complaints, fevers, chills, or anything else that is concerning to you
[2016-10-07 14:07] LABS: BASOPHIL 1.3 % (0-2.0); EOSINOPHIL 8.6 % (0-4.5); MCH 31.1 pg (25.7-33.7); MCHC 32.9 g/dl (32.0-35.9); MEAN CELL VOLUME 94.5 fl (80-96); MEAN PLT VOLUME 8.2 fl (7.5-11.1); NEUTROPHILS 64.3 % (42.8-82.8); PLATELET COUNT 258 K/MM3 (134-434); RDW 14.8 % (11.9-15.9); WHITE BLOOD COUNT 5.7 K/mm3 (4.0-10.0)
[2016-10-07] MEDS ORDERED: TOBRAMYCIN 0.3% OPHTH SOLN 5 ML BOTTLE OS ONE (14:09)
[2016-10-07] MEDS ORDERED: TOBRAMYCIN 0.3% OPHTH SOLN 5 ML BOTTLE ONE (14:10)
[2016-10-07] MEDS ORDERED: CIPROFLOXACIN 0.3% EYE DROPS 5 ML BOTTLE OS ONE (14:15)
[2016-10-07 15:11] LABS: ANION GAP 16 (8-16); BILIRUBIN,TOTAL 0.3 mg/dL (0.2-1.0); CALCIUM 7.7 mg/dL (8.5-10.1); CO2 22 mmol/L (21-32); GLUCOSE,RANDOM 230 mg/dL (74-106); SGOT/AST 11 U/L (15-37); SGPT/ALT 16 U/L (12-78); TOT PROT 6.9 g/dl (6.4-8.2)
[2016-10-07 15:17] LABS: ALK PHOS 258 U/L (45-117); CPK 152 IU/L (39-308); TROPONIN I 0.02 ng/ml (0.00-0.05)
[2016-10-07] MEDS ORDERED: oxyCODONE HCL 5 MG TABLET ONE (15:44)
[2016-10-07] MEDS ORDERED: oxyCODONE HCL 5 MG TABLET PO ONE (15:44)
[2016-10-07 17:06] VITALS: BP 163/74; PULSE 78
--- NOTE | 2016-10-08 16:42 | EKG ---
Test Reason : Blood Pressure : / mmHG Vent. Rate : 084 BPM Atrial Rate : 084 BPM P-R Int : 172 ms QRS Dur : 094 ms QT Int : 410 ms P-R-T Axes : 058 000 080 degrees QTc Int : 484 ms NORMAL SINUS RHYTHM POSSIBLE LEFT ATRIAL ENLARGEMENT ANTEROSEPTAL INFARCT (CITED ON OR BEFORE 13-DEC-2009) ABNORMAL ECG WHEN COMPARED WITH ECG OF 30-SEP-2016 21:23, NO SIGNIFICANT CHANGE WAS FOUND Confirmed by MICKEY KANG MD ([id number]) on 10/08/2016 4:42:29 PM Referred By: Confirmed By:MICKEY KANG MD
== END 2016-10-07 17:07 | disposition home or self-care (01) ==
LOC: JER 12:44
DX: R05 Cough (principal); R53.1 Weakness; I12.0 Hypertensive chronic kidney disease with stage 5 chronic kidney disease or end stage renal disease; E11.22 Type 2 diabetes mellitus with diabetic chronic kidney disease; N18.6 End stage renal disease; Z99.2 Dependence on renal dialysis; Z79.4 Long term (current) use of insulin; I50.9 Heart failure, unspecified; I25.2 Old myocardial infarction; Z95.1 Presence of aortocoronary bypass graft; Z95.5 Presence of coronary angioplasty implant and graft; E78.5 Hyperlipidemia, unspecified; D64.9 Anemia, unspecified; Z79.82 Long term (current) use of aspirin; Z89.412 Acquired absence of left great toe; Z89.422 Acquired absence of other left toe(s)
CPT/HCPCS: 36415; 71020-TC; 73523-TC; 80053; 82553; 84484; 85025; 93005; 93010; 99284-25

== ENCOUNTER 2016-10-14 14:32 | Emergency (ER) | payer OTHER ==
--- NOTE | 2016-10-14 14:42 | PDOC ---
History of Present Illness - General History Source: Patient Exam Limitations: No Limitations - History of Present Illness Initial Comments: 10/14/16 16:10 The patient is a 51 year old male, with a significant past medical history of HTN, CHF, [place] s/p CABG, ESRD on HD, HLD, asthma, and prior cervical spine osteomyelitis, who presents to the emergency department with wheezing and left sided abdominal pain. The patient reports ranks his pain a 3/10 in pain intensity. He reports his abdominal pain is localized at his LLQ. He denies any recent fevers, chills, headache or dizziness. He denies any recent nausea, vomit, diarrhea or constipation. He denies any recent chest pain. He denies any recent dysuria, frequency, urgency or hematuria. Allergies: NKDA Past surgical history: None reported. Social History: Nonsmoker. Denies EtOH use and recreational drug use. Primary Care Physician: <Kendell Barney - Last Filed: 10/14/16 16:45> <Mi North - Last Filed: 10/14/16 19:23> - General Chief Complaint: Pain Stated Complaint: ABD PAIN Time Seen by Provider: 10/14/16 14:42 Past History <Kendell Barney - Last Filed: 10/14/16 16:45> - Past Medical History Anemia: Yes Asthma: No Cancer: No Cardiac Disorders: Yes ("silent SC" CABG x 2 vessels 05/24/2010) CVA: No COPD: No CHF: Yes Dementia: No Diabetes: Yes Dialysis: Yes () GI Disorders: No Disorders: No HTN: Yes Hypercholesterolemia: Yes Liver Disease: No Suicide Attempt (Hx): No Seizures: No Thyroid Disease: No - Surgical History Abdominal Surgery: No Appendectomy: No Cardiac Surgery: Yes (CABG 05/2010, cardiac stent may 2013) Cholecystectomy: No Lung Surgery: No Orthopedic Surgery: Yes (amputation of all toes on left foot) - Family Disease History Family Disease History: Diabetes: Mother, Heart Disease: Father - Immunization History Immunization Up to Date: Yes - Psycho/Social/Smoking Cessation Hx Anxiety: No Suicidal Ideation: No Smoking Status: No Smoking History: Never smoked Years of Tobacco Use: 0 Have you smoked in the past 12 months: No Number of Cigarettes Smoked Daily: 2 If you are a former smoker, when did you quit?: 1990 Cigars Per Day: 0 'Breaking Loose' booklet given: 06/04/12 Hx Alcohol Use: No Drug/Substance Use Hx: No Substance Use Type: None Hx Substance Use Treatment: No <Mi North - Last Filed: 10/14/16 19:23> - Past Medical History Allergies/Adverse Reactions: Allergies Allergy/AdvReac Type Severity Reaction Status Date / Time No Known Drug Allergies Allergy Verified 10/07/16 12:51 Home Medications: Ambulatory Orders Aspirin [ASA -] 81 mg PO DAILY 11/13/14 Isosorbide Mononitrate [Imdur -] 30 mg PO DAILY 11/13/14 Atorvastatin Ca [Lipitor] 80 mg PO HS tablet 12/22/15 Ferrous Sulfate 325 mg PO BID 03/26/16 Furosemide [Lasix] 80 mg PO DAILY 03/26/16 Metoprolol Succinate [Toprol Xl] 50 mg PO DAILY 03/26/16 Sevelamer Carbonate [Renvela] 800 mg PO TID 03/26/16 Albuterol Sulfate [Proventil HFA Inhaler -] 1 - 2 inh PO QID #1 inhaler Allopurinol [Zyloprim -] 100 mg PO DAILY 10/14/16 Aspirin [Jeremiah Chewable] 81 mg PO DAILY 10/14/16 Atorvastatin Ca [Lipitor] 80 mg PO HS 10/14/16 Ferrous Sulfate [Feosol] 325 mg PO DAILY 10/14/16 Insulin (Levemir) [Levemir Flexpen -] 13 units SQ DAILY 10/14/16 Isosorbide Mononitrate [Isosorbide Mononitrate ER] 30 mg PO DAILY 10/14/16 Prednisone [Deltasone -] 40 mg PO DAILY #4 tablet 10/14/16 Review of Systems - Review of Systems Able to Perform ROS?: Yes Comments:: 10/14/16 16:10 GENERAL/CONSTITUTIONAL: No fever or chills. No weakness. HEAD, EYES, EARS, NOSE AND THROAT: No change in vision. No ear pain or discharge. No sore throat. CARDIOVASCULAR: No chest pain or shortness of breath. RESPIRATORY: +wheezing No cough, or hemoptysis. GASTROINTESTINAL: +abdominal pain. No nausea, vomiting, diarrhea or constipation. GENITOURINARY: No dysuria, frequency, or change in urination. MUSCULOSKELETAL: No joint or muscle swelling or pain. No neck or back pain. SKIN: No rash NEUROLOGIC: No headache, vertigo, loss of consciousness, or change in strength/ sensation. ENDOCRINE: No increased thirst. No abnormal weight change. HEMATOLOGIC/LYMPHATIC: No anemia, easy bleeding, or history of blood clots. ALLERGIC/IMMUNOLOGIC: No hives or skin allergy. <Kendell Barney - Last Filed: 10/14/16 16:45> *Physical Exam - Physical Exam Comments: 10/14/16 16:45 GENERAL: +Tachypneic. Awake, alert, and fully oriented, in no acute distress. HEAD: No signs of trauma EYES: PERRLA, EOMI, sclera anicteric, conjunctiva clear ENT: Auricles normal inspection, hearing grossly normal, nares patent, oropharynx clear without exudates. Moist mucosa NECK: Normal ROM, supple, no lymphadenopathy, JVD, or masses LUNGS: Diffuse wheezing. No crackles HEART: Regular rate and rhythm, normal S1 and S2, no murmurs, rubs or gallops ABDOMEN: Soft, LUQ tenderness, normoactive bowel sounds. No guarding, no rebound. No masses EXTREMITIES: +Fistula in place on LUE. Normal range of motion, no edema. No clubbing or cyanosis. No cords, erythema, or tenderness NEUROLOGICAL: Cranial nerves II through XII grossly intact. Normal speech, normal gait SKIN: Warm, Dry, normal turgor, no rashes or lesions noted. <Kendell Barney - Last Filed: 10/14/16 16:45> ED Treatment Course - LABORATORY CBC & Chemistry Diagram: 10/14/16 16:39 10/14/16 16:39 <Mi North - Last Filed: 10/14/16 19:23> Medical Decision Making - Medical Decision Making 10/14/16 18:44 Pt presents to the ED complaining of a several day history of wheezing and LUQ pain. Pain is pleuritic and worse with cough. Denies fever or productive cough. History of DM, ESRD on HD. Recently seen in the ED for similar complaints, with negative work up. CXR is unchanged from previous. + diffuse wheezing on initial exam, improved but not resolved after nebs. Will treat with additional nebs and steroids and reassess. 10/14/16 19:22 <Mi North - Last Filed: 10/14/16 19:23> *DC/Admit/Observation/Transfer - Attestations Scribe Attestion: 10/14/16 14:55 Documentation prepared by Kendell Barney, acting as resident medical officer for Mi North MD. <Kendell Barney - Last Filed: 10/14/16 16:45> - Discharge Dispostion Admit: No <Mi North - Last Filed: 10/14/16 19:23> Diagnosis at time of Disposition: Asthma Qualifiers: Asthma severity: mild intermittent Asthma complication type: with acute exacerbation Qualified Code(s): J45.21 - Mild intermittent asthma with (acute) exacerbation - Prescriptions Prescriptions: Prednisone [Deltasone -] 40 mg PO DAILY #4 tablet Albuterol Sulfate [Proventil HFA Inhaler -] 1 - 2 inh PO QID #1 inhaler - Referrals Referrals: Yamilka Hernandez MD [Primary Care Provider] - - Patient Instructions Printed Discharge Instructions: DI for Asthma -- Adult Additional Instructions: return to the ED for chest pain, severe shortness of breath, fevers, nausea, vomiting, severe abdominal pain, new or worsening symptoms.
[2016-10-14 15:27] VITALS: BMI 29.7
[2016-10-14] MEDS ORDERED: ALBUTEROL SO4 0.083% IH SOL 2.5 MG/3 ML VIAL.NEB. NEB ONE (16:23)
[2016-10-14] MEDS ORDERED: ALBUTEROL SO4 2.5/IPRATROPIUM 0.5 INH SOL 3 ML VIAL.NEB. NEB ONE ×2 (16:25→18:43)
[2016-10-14 17:03] LABS: BASO % 0.8 % (0-2.0); EOS % 6.6 % (0-4.5); HEMATOCRIT 32.6 % (35.4-49); HEMOGLOBIN 10.7 GM/dL (11.7-16.9); LYMPH % 12.9 % (8-40); MCH 30.8 pg (25.7-33.7); MCHC 32.7 g/dl (32.0-35.9); MEAN CELL VOLUME 94.2 fl (80-96); MEAN PLT VOLUME 8.2 fl (7.5-11.1); MONO % 6.3 % (3.8-10.2); NEUT % 73.4 % (42.8-82.8); PLATELET COUNT 279 K/MM3 (134-434); RBC 3.46 M/mm3 (4.00-5.60); RDW 14.5 % (11.9-15.9); WHITE BLOOD COUNT 6.9 K/mm3 (4.0-10.0)
[2016-10-14 17:52] LABS: ALBUMIN 3.2 g/dl (3.4-5.0); ALK PHOS 310 U/L (45-117); ANION GAP 9 (8-16); BILIRUBIN,TOTAL 0.5 mg/dL (0.2-1.0); BLOOD UREA NITROGEN 36 mg/dL (7-18); CALCIUM 8.5 mg/dL (8.5-10.1); CHLORIDE 97 mmol/L (98-107); CO2 29 mmol/L (21-32); CREATININE 4.9 mg/dL (0.7-1.3); GLUCOSE,RANDOM 210 mg/dL (74-106); POTASSIUM 4.2 mmol/L (3.5-5.1); SGOT/AST 16 U/L (15-37); SGPT/ALT 17 U/L (12-78); SODIUM 135 mmol/L (136-145); TOT PROT 7.4 g/dl (6.4-8.2)
[2016-10-14] MEDS ORDERED: predniSONE 20 MG TABLET (UD) PO ONE (18:43)
[2016-10-14] MEDS ORDERED: predniSONE 20 MG TABLET (UD) ONE (19:16)
[2016-10-14 19:24] VITALS: BP 148/78; PULSE 87; TEMP 97.8
--- NOTE | 2016-10-15 11:29 | EKG ---
Test Reason : Blood Pressure : / mmHG Vent. Rate : 084 BPM Atrial Rate : 084 BPM P-R Int : 174 ms QRS Dur : 104 ms QT Int : 422 ms P-R-T Axes : 065 002 078 degrees QTc Int : 498 ms NORMAL SINUS RHYTHM SEPTAL INFARCT (CITED ON OR BEFORE 13-DEC-2009) ABNORMAL ECG WHEN COMPARED WITH ECG OF 07-OCT-2016 13:39, QUESTIONABLE CHANGE IN INITIAL FORCES OF ANTERIOR LEADS Confirmed by RONAK MILAN MD ([id number]) on 10/15/2016 11:28:41 AM Referred By: Confirmed By:RONAK MILAN MD
--- NOTE | 2016-10-15 12:26 | CON.CARD ---
Consult - Past Medical History Cardio/Vascular: Yes: CAD, CHF (normal ejection fraction; poor LV compliance; no valvular abnormalities), HTN, Hyperlipdemia. No: AFIB, Aneurysm, Aortic Insufficiency, Aortic Stenosis, Deep Vein Thrombosis, [place], Mitral Insufficiency, Mitral Stenosis, Murmur, Pulmonary Hypertension, Other Gastrointestinal: Yes: GERD, GI Bleed. No: Ascites, Cancer, Constipation, Crohn 's Disease, Diverticulitis, Diverticulosis, Esophageal Varices, Gastritis, Hemorrhoids, Hiatal Hernia, Inflamatory Bowel Disease, Irritable Bowel Disease, Pancreatitis, Peptic Ulcer Disease, Ulcerative Colitis, Other Renal/: Yes: Renal Failure, Hemodialysis (ESRD on HD MWF via L arm AVF) Psych: Yes: Anxiety Musculoskeletal: Yes: Other (left metatarsal amputation). No: Bursitis, Chronic low back pain, Hemiparesis, Hemiplegia, Osteoarthritis, Paraplegia Rheumatology: Yes: Gout Endocrine: Yes: Diabetes Mellitus. No: [place]'s Disease, [place]'s Disease, Diabetes Insipidus, Hyperparathyroidism, Hyperthyroidism, Hypothyroidism, Osteopenia, SIADH, Other Additional Medical History: as above in HPI; L eye blindness; on renal transplant list at [facility]. bilateral detached retinas - Past Surgical History Past Surgical History: Yes: Amputation (Left Transmetatarsal), AV Fistula/Graft , CABG (05/2010), Stent (s/p cardiac cath with stent placement). No: None, AAA Repair, AICD, Appendectomy, Arthrosocopy, Bariatric Surgery, Breast Biopsy, Bypass, Carotid Endarterectomy, Cataract Removal, Cholecystectomy, Colectomy, Colonoscopy, Colostomy, Craniotomy, , Cystectomy, Hernia Repair, Hysterectomy, Ileal Conduit, Ileosotomy, Joint Replacement, Kidney Transplant, Laminectomy, Liver Transplant, Mastectomy, Nephrectomy, Oopherectomy, Orchiectomy, Permanent Pacemaker, Prostatectomy, Splenectomy, Thoracotomy, TURP , Tonsillectomy, Tubal Ligation, Upper Endoscopy, Valve Replacement, Vasectomy, Vein Stripping/Ligation - Alcohol/Substance Use Hx Alcohol Use: No History of Substance Use: reports: None - Smoking History Smoking history: Never smoked Have you smoked in the past 12 months: No Aproximately how many cigarettes per day: 2 If you are a former smoker, when did you quit?: 1989 - Social History Usual Living Arrangement: With Spouse ADL: Independent 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 History of Recent Travel: No Home Medications - Allergies Allergies/Adverse Reactions: Allergies Allergy/AdvReac Type Severity Reaction Status Date / Time No Known Drug Allergies Allergy Verified 10/07/16 12:51 - Home Medications Home Medications: Ambulatory Orders Aspirin [ASA -] 81 mg PO DAILY 11/13/14 Isosorbide Mononitrate [Imdur -] 30 mg PO DAILY 11/13/14 Atorvastatin Ca [Lipitor] 80 mg PO HS tablet 12/22/15 Ferrous Sulfate 325 mg PO BID 03/26/16 Furosemide [Lasix] 80 mg PO DAILY 03/26/16 Metoprolol Succinate [Toprol Xl] 50 mg PO DAILY 03/26/16 Sevelamer Carbonate [Renvela] 800 mg PO TID 03/26/16 Albuterol Sulfate [Proventil HFA Inhaler -] 1 - 2 inh PO QID #1 inhaler Allopurinol [Zyloprim -] 100 mg PO DAILY 10/14/16 Aspirin [Jeremiah Chewable] 81 mg PO DAILY 10/14/16 Atorvastatin Ca [Lipitor] 80 mg PO HS 10/14/16 Ferrous Sulfate [Feosol] 325 mg PO DAILY 10/14/16 Insulin (Levemir) [Levemir Flexpen -] 13 units SQ DAILY 10/14/16 Isosorbide Mononitrate [Isosorbide Mononitrate ER] 30 mg PO DAILY 10/14/16 Prednisone [Deltasone -] 40 mg PO DAILY #4 tablet 10/14/16 Family Disease History - Family Disease History Family Disease History: Diabetes: Father, Mother, Other: Father, Mother Review of Systems - Review of Systems Constitutional: reports: No Symptoms Eyes: reports: No Symptoms HENT: reports: No Symptoms Neck: reports: No Symptoms Cardiovascular: reports: No Symptoms Respiratory: reports: SOB Gastrointestinal: reports: No Symptoms Genitourinary: reports: No Symptoms Breasts: reports: No Symptoms Reported Musculoskeletal: reports: No Symptoms Integumentary: reports: No Symptoms Neurological: reports: No Symptoms Endocrine: reports: No Symptoms Hematology/Lymphatic: reports: No Symptoms Psychiatric: reports: No Symptoms Vital Signs: Vital Signs Temperature 97.8 F 10/14/16 19:23 Pulse Rate 87 10/14/16 19:23 Respiratory Rate 18 10/14/16 19:23 Blood Pressure 148/78 10/14/16 19:23 O2 Sat by Pulse Oximetry (%) 98 10/14/16 19:23 - Other Data Labs, Other Data: CBC, BMP 10/14/16 16:39 10/14/16 16:39 Troponin, BNP 10/14/16 16:45 Troponin I 0.02 Troponin, BNP 10/14/16 16:45 Troponin I 0.02
== END 2016-10-14 19:25 | disposition home or self-care (01) ==
LOC: JER 14:32
PROC: 3E0F7GC Introduction of Other Therapeutic Substance into Respiratory Tract, Via Natural or Artificial Opening (ICD-10-PCS; principal; 2016-10-14)
PROC: 3E0F7GC Introduction of Other Therapeutic Substance into Respiratory Tract, Via Natural or Artificial Opening (ICD-10-PCS; 2016-10-14)
DX: J45.21 Mild intermittent asthma with (acute) exacerbation (principal); I25.10 Atherosclerotic heart disease of native coronary artery without angina pectoris; I13.11 Hypertensive heart and chronic kidney disease without heart failure, with stage 5 chronic kidney disease, or end stage renal disease; N18.6 End stage renal disease; Z99.2 Dependence on renal dialysis; Z95.1 Presence of aortocoronary bypass graft; Z95.5 Presence of coronary angioplasty implant and graft; E11.9 Type 2 diabetes mellitus without complications; Z79.4 Long term (current) use of insulin; Z89.422 Acquired absence of other left toe(s)
CPT/HCPCS: 36415; 71020-TC; 80053; 82553; 83605; 84484; 85025; 93005; 93010; 99283-25

== ENCOUNTER 2016-11-28 17:07 | Inpatient (IN) | payer OTHER ==
[2016-11-28] MEDS ORDERED: ACETAMINOPHEN 325 MG TABLET (FP) PO ONE (18:09)
--- NOTE | 2016-11-28 19:15 | PDOC ---
History of Present Illness - General Chief Complaint: Pain Stated Complaint: LEG PAIN Time Seen by Provider: 11/28/16 19:10 History Source: Patient - History of Present Illness Initial Comments: 11/29/16 02:44 51-year-old male with a history of ESRD, IDDM presents to the emergency department complaining of left lower leg pain with a temperature of 101.0. Patient denies any injury/fall or trauma. Pain is described as 8/10 dull nonradiating intermittent discomfort. There are no exacerbating or alleviating factors. Patient has a history of left foot amputation due to diabetes. Patient denies any headache, dizziness, lightheadedness, chest pain, shortness of breath , abdominal pains, extremity numbness or tingling sensation. Patient denies recent travels, prolonged sitting. Timing/Duration: 24 hours Past History - Past Medical History Allergies/Adverse Reactions: Allergies Allergy/AdvReac Type Severity Reaction Status Date / Time No Known Drug Allergies Allergy Verified 11/28/16 17:10 Home Medications: Ambulatory Orders Allopurinol [Zyloprim -] 100 mg PO DAILY 11/28/16 Atorvastatin Ca [Lipitor] 80 mg PO HS 11/28/16 Azithromycin 500 mg PO DAILY 11/28/16 Cinacalcet HCl [Sensipar] 30 mg PO DAILY 11/28/16 Ferrous Sulfate 325 mg PO DAILY 11/28/16 Furosemide [Lasix] 80 mg PO DAILY 11/28/16 Furosemide [Lasix] 80 mg PO DAILY 11/28/16 Hydralazine HCl 50 mg PO DAILY 11/28/16 Lisinopril 5 mg PO DAILY 11/28/16 Magnesium Oxide [Mag-Ox -] 400 mg PO TID 11/28/16 Nitroglycerin 0.4 mg SL DAILY PRN 11/28/16 Omeprazole 20 mg PO DAILY 11/28/16 Sevelamer Carbonate [Renvela] 800 mg NR DAILY 11/28/16 Anemia: Yes Asthma: No Cancer: No Cardiac Disorders: Yes ("silent VT" CABG x 2 vessels 05/24/2010) CVA: No COPD: No CHF: Yes Dementia: No Diabetes: Yes Dialysis: Yes () GI Disorders: No Disorders: No HTN: Yes Hypercholesterolemia: Yes Liver Disease: No Seizures: No Thyroid Disease: No - Surgical History Abdominal Surgery: No Appendectomy: No Cardiac Surgery: Yes (CABG 05/2010, cardiac stent may 2013) Cholecystectomy: No Lung Surgery: No Orthopedic Surgery: Yes (amputation of all toes on left foot) - Family Disease History Family Disease History: Diabetes: Mother, Heart Disease: Father - Immunization History Immunization Up to Date: Yes - Suicide/Smoking/Psychosocial Hx Smoking Status: No Smoking History: Never smoked Years of Tobacco Use: 0 Have you smoked in the past 12 months: No Number of Cigarettes Smoked Daily: 2 If you are a former smoker, when did you quit?: 1990 Cigars Per Day: 0 'Breaking Loose' booklet given: 06/04/12 Hx Alcohol Use: No Drug/Substance Use Hx: No Substance Use Type: None Hx Substance Use Treatment: No Review of Systems - Review of Systems Able to Perform ROS?: Yes Comments:: 11/28/16 21:30 CONSTITUTIONAL: Absent: fever, chills, diaphoresis, generalized weakness, malaise, loss of appetite HEENT: Absent: rhinorrhea, nasal congestion, throat pain, throat swelling, difficulty swallowing, mouth swelling, ear pain, eye pain, visual Changes CARDIOVASCULAR: Absent: chest pain, loss of consciousness, palpitations, irregular heart rate, peripheral edema RESPIRATORY: Absent: cough, shortness of breath, dyspnea with exertion, orthopnea, wheezing, stridor, hemoptysis GASTROINTESTINAL: Absent: abdominal pain, abdominal distension, nausea, vomiting, diarrhea, constipation, melena, hematochezia GENITOURINARY: Absent: dysuria, frequency, urgency, hesitancy, hematuria, flank pain, genital pain MUSCULOSKELETAL: +LLE pain Absent: myalgia, arthralgia, joint swelling SKIN: Absent: rash, itching, pallor HEMATOLOGIC/IMMUNOLOGIC: Absent: easy bleeding, easy bruising, lymphadenopathy, frequent infections ENDOCRINE: Absent: unexplained weight gain, unexplained weight loss, heat intolerance, cold intolerance NEUROLOGIC: Absent: headache, focal weakness or paresthesias, dizziness, unsteady gait, seizure, mental status changes, bladder or bowel incontinence PSYCHIATRIC: Absent: anxiety, depression, suicidal or homicidal ideation, hallucinations. Is the patient limited Chinese proficient: No *Physical Exam - Vital Signs Last Vital Signs Temp Pulse Resp BP Pulse Ox 101.4 F H 109 H 20 155/100 97 11/28/16 17:10 11/28/16 17:10 11/28/16 17:10 11/28/16 17:10 11/28/16 17:10 - Physical Exam Comments: 11/28/16 21:30 GENERAL: Well developed, well nourished. Awake and alert. No acute distress. HEENT: Normocephalic, atraumatic. PERRLA, EOMI. No conjunctival pallor. Sclera are non- icteric. Moist mucous membranes. Oropharynx is clear. NECK: Supple. Full ROM. No JVD. Carotid pulses 2+ and symmetric, without bruits. No thyromegaly. No lymphadenopathy. CARDIOVASCULAR: Regular rate and rhythm. No murmurs, rubs, or gallops. Distal pulses are 2+ and symmetric. PULMONARY: No evidence of respiratory distress. Lungs clear to auscultation bilaterally. No wheezing, rales or rhonchi. ABDOMINAL: Soft. Non-tender. Non-distended. No rebound or guarding. No organomegaly. Normoactive bowel sounds. MUSCULOSKELETAL Neg LLE pain on palp/ Neg Joan's sign Left foot amputation, neg signs of redness/drainage, pain on palp Normal range of motion at all joints. No bony deformities or tenderness. No CVA tenderness. EXTREMITIES: No cyanosis. No clubbing. No edema. No calf tenderness. SKIN: Warm and dry. Normal capillary refill. No rashes. No jaundice. ED Treatment Course - LABORATORY CBC & Chemistry Diagram: 11/28/16 19:20 11/28/16 20:35 - RADIOLOGY Radiograph Interpretation: 11/29/16 02:49 XRAY 2v CXR NAD - Medications Given in the ED: ED Medications Discontinued Medications Generic Name Dose Route Start Last Admin Trade Name Zach PRN Reason Stop Dose Admin Acetaminophen 650 mg 11/28/16 18:09 11/28/16 18:12 Tylenol - PO 11/28/16 18:10 650 mg NOW ONE Administration *DC/Admit/Observation/Transfer Diagnosis at time of Disposition: Bacteremia - Discharge Dispostion Admit: Yes Progress Note - Progress Note Progress Note: Spoke to Dr. Vivas and will admit. Request for Vancomycin 1gm iv and Zosyn. Will order 2.2gm due to labs
[2016-11-28] MEDS ORDERED: SODIUM CHLORIDE 1,000 ML IV STA (19:18)
[2016-11-28] MEDS ORDERED: morphine CARPU-JECT 2 MG/1 ML DISP.SYRIN IVPUSH ONE (19:30)
[2016-11-28] MEDS ORDERED: ONDANSETRON 4 MG/2 ML VIAL IVPUSH ONE (19:30)
[2016-11-28 19:31] LABS: BASOPHIL 0.4 % (0-2.0); EOSINOPHIL 2.4 % (0-4.5); MCH 30.4 pg (25.7-33.7); MCHC 32.8 g/dl (32.0-35.9); MEAN CELL VOLUME 92.6 fl (80-96); MEAN PLT VOLUME 8.2 fl (7.5-11.1); NEUTROPHILS 85.2 % (42.8-82.8); PLATELET COUNT 302 K/MM3 (134-434); WHITE BLOOD COUNT 12.7 K/mm3 (4.0-10.0)
[2016-11-28] MEDS ORDERED: morphine CARPU-JECT 2 MG/1 ML DISP.SYRIN ONE (19:37)
[2016-11-28] MEDS ORDERED: ONDANSETRON 4 MG/2 ML VIAL ONE (19:38)
[2016-11-28 21:21] LABS: ALBUMIN 2.7 g/dl (3.4-5.0); ANION GAP 12 (8-16); BILIRUBIN,TOTAL 0.3 mg/dL (0.2-1.0); CALCIUM 8.2 mg/dL (8.5-10.1); CO2 24 mmol/L (21-32); CREATININE 7.2 mg/dL (0.7-1.3); SGOT/AST 8 U/L (15-37); SGPT/ALT 11 U/L (12-78); TOT PROT 7.1 g/dl (6.4-8.2)
[2016-11-28 21:22] LABS: ALK PHOS 269 U/L (45-117)
[2016-11-28 21:34] LABS: GLUCOSE,RANDOM 368 mg/dL (74-106)
[2016-11-28] MEDS ORDERED: PIPERACILLIN/TAZOB 4.5 GM/100 ML PRE-DOCKED IVPB ONE (23:11)
[2016-11-28] MEDS ORDERED: PANTOPRAZOLE 40 MG TABLET (FP) ONE (23:48)
--- NOTE | 2016-11-28 23:51 | HP ---
Admitting History and Physical - Primary Care Physician PCP: Dr Ovidio Vivas - Admission Chief Complaint: Sepsis/ Fever/ Leg pain/PVD History of Present Illness: Pt is spiking fever 102 and Leg pain 51 year old Gentleman with PMhx of ESRD on HD (TTS at [facility]), Hypertension, CAD, PVD, DM2, Hx of paraspinal abcess who presented with complaints of fever and TMA stump pain. Pt noted to have a callus on his TMA stump that may have become infected and was being treated by vascular Sx. Pt last had dialysis on Thursday w/o any complication. History Source: Caregiver - Past Medical History Cardiovascular: Yes: CAD, CHF (normal ejection fraction; poor LV compliance; no valvular abnormalities), HTN, Hyperlipdemia. No: AFIB, Aneurysm, Aortic Insufficiency, Aortic Stenosis, Deep Vein Thrombosis, [place], Mitral Insufficiency, Mitral Stenosis, Murmur, Pulmonary Hypertension, Other Gastrointestinal: Yes: GERD, GI Bleed. No: Constipation, Crohn's Disease, Diverticulitis, Diverticulosis, Esophageal Varices, Gastritis, Hemorrhoids, Hiatal Hernia, Inflamatory Bowel Disease, Irritable Bowel Disease, Pancreatitis , Peptic Ulcer Disease, Ulcerative Colitis, Other Renal/: Yes: Renal Failure, Hemodialysis (ESRD on HD MWF via L arm AVF) Heme/Onc: No: Anemia, B12 Deficiency, Bleeding Disorder, Cancer, Current Chemotherapy, Current Radiation Therapy, Hemochromatosis, Hypercoaguable State, Myeloproliferative Synd, Sickle Cell Disease, Sickle Cell Trait, Thrombocytopenia, Other Psych: Yes: Anxiety Musculoskeletal: Yes: Other (left metatarsal amputation). No: Bursitis, Chronic low back pain, Hemiparesis, Hemiplegia, Osteoarthritis, Paraplegia Rheumatology: Yes: Gout Endocrine: Yes: Diabetes Mellitus. No: [place]'s Disease, [place]'s Disease, Diabetes Insipidus, Hyperparathyroidism, Hyperthyroidism, Hypothyroidism, Osteopenia, SIADH, Other - Past Surgical History Past Surgical History: Yes: Amputation (Left Transmetatarsal), AV Fistula/Graft , CABG (05/2010), Stent (s/p cardiac cath with stent placement). No: None, AAA Repair, AICD, Appendectomy, Arthrosocopy, Bariatric Surgery, Breast Biopsy, Bypass, Carotid Endarterectomy, Cataract Removal, Cholecystectomy, Colectomy, Colonoscopy, Colostomy, Craniotomy, , Cystectomy, Hernia Repair, Hysterectomy, Ileal Conduit, Ileosotomy, Joint Replacement, Kidney Transplant, Laminectomy, Liver Transplant, Mastectomy, Nephrectomy, Oopherectomy, Orchiectomy, Permanent Pacemaker, Prostatectomy, Splenectomy, Thoracotomy, TURP , Tonsillectomy, Tubal Ligation, Upper Endoscopy, Valve Replacement, Vasectomy, Vein Stripping/Ligation - Smoking History Smoking history: Never smoked Have you smoked in the past 12 months: No Aproximately how many cigarettes per day: 2 If you are a former smoker, when did you quit?: 1989 - Alcohol/Substance Use Hx Alcohol Use: No History of Substance Use: reports: None - Social History ADL: Independent 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 History of Recent Travel: No Home Medications - Allergies Allergies/Adverse Reactions: Allergies Allergy/AdvReac Type Severity Reaction Status Date / Time No Known Drug Allergies Allergy Verified 11/28/16 17:10 - Home Medications Home Medications: Ambulatory Orders Allopurinol [Zyloprim -] 100 mg PO DAILY 11/28/16 Atorvastatin Ca [Lipitor] 80 mg PO HS 11/28/16 Azithromycin 500 mg PO DAILY 11/28/16 Cinacalcet HCl [Sensipar] 30 mg PO DAILY 11/28/16 Ferrous Sulfate 325 mg PO DAILY 11/28/16 Furosemide [Lasix] 80 mg PO DAILY 11/28/16 Furosemide [Lasix] 80 mg PO DAILY 11/28/16 Hydralazine HCl 50 mg PO DAILY 11/28/16 Lisinopril 5 mg PO DAILY 11/28/16 Magnesium Oxide [Mag-Ox -] 400 mg PO TID 11/28/16 Nitroglycerin 0.4 mg SL DAILY PRN 11/28/16 Omeprazole 20 mg PO DAILY 11/28/16 Sevelamer Carbonate [Renvela] 800 mg NR TID 11/28/16 Family Disease History - Family Disease History Family Disease History: Diabetes: Father, Mother, Other: Father, Mother Review of Systems - Review of Systems Constitutional: reports: Fever Eyes: reports: Blurred Vision Neck: reports: No Symptoms Cardiovascular: reports: No Symptoms Respiratory: reports: Cough Gastrointestinal: reports: No Symptoms Genitourinary: reports: No Symptoms Musculoskeletal: reports: Muscle Pain, Muscle Cramps Neurological: reports: No Symptoms Physical Examination Vital Signs: Vital Signs Temperature 99.6 F 11/28/16 19:52 Pulse Rate 104 H 11/28/16 19:52 Respiratory Rate 19 11/28/16 23:12 Blood Pressure 154/82 11/28/16 19:52 O2 Sat by Pulse Oximetry (%) 98 11/28/16 23:12 Problem List - Problems (1) Fever Code(s): R50.9 - FEVER, UNSPECIFIED (2) ESRD (end stage renal disease) on dialysis Code(s): N18.6 - END STAGE RENAL DISEASE Z99.2 - DEPENDENCE ON RENAL DIALYSIS (3) Systolic and diastolic CHF, chronic Code(s): I50.42 - CHRONIC COMBINED SYSTOLIC AND DIASTOLIC HRT FAIL (4) Anemia in ESRD (end-stage renal disease) Code(s): N18.6 - END STAGE RENAL DISEASE D63.1 - ANEMIA IN CHRONIC KIDNEY DISEASE (5) Diabetes mellitus Code(s): E11.9 - TYPE 2 DIABETES MELLITUS WITHOUT COMPLICATIONS Qualifiers: Diabetes mellitus type: type 2 Diabetes mellitus complication status: with kidney complications Diabetes mellitus complication detail: with chronic kidney disease (6) Posterior neck pain Code(s): M54.2 - CERVICALGIA (7) Sepsis Code(s): A41.9 - SEPSIS, UNSPECIFIED ORGANISM Qualifiers: Sepsis type: sepsis due to unspecified organism Qualified Code(s): A41.9 - Sepsis, unspecified organism; A41.9 - Sepsis, unspecified organism; A41.9 - Sepsis, unspecified organism (8) Elevated cholesterol Code(s): E78.0 - PURE HYPERCHOLESTEROLEMIA * DO NOT USE * (9) HTN (hypertension), malignant Code(s): I10 - ESSENTIAL (PRIMARY) HYPERTENSION (10) 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A Assessment/Plan (1) Fever Code(s): R50.9 - FEVER, UNSPECIFIED (2) ESRD (end stage renal disease) on dialysis Code(s): N18.6 - END STAGE RENAL DISEASE Z99.2 - DEPENDENCE ON RENAL DIALYSIS (3) Systolic and diastolic CHF, chronic Code(s): I50.42 - CHRONIC COMBINED SYSTOLIC AND DIASTOLIC HRT FAIL (4) Anemia in ESRD (end-stage renal disease) Code(s): N18.6 - END STAGE RENAL DISEASE D63.1 - ANEMIA IN CHRONIC KIDNEY DISEASE (5) Diabetes mellitus Code(s): E11.9 - TYPE 2 DIABETES MELLITUS WITHOUT COMPLICATIONS Qualifiers: Diabetes mellitus type: type 2 Diabetes mellitus complication status: with kidney complications Diabetes mellitus complication detail: with chronic kidney disease (6) Posterior neck pain Code(s): M54.2 - CERVICALGIA (7) Sepsis Code(s): A41.9 - SEPSIS, UNSPECIFIED ORGANISM Qualifiers: Sepsis type: sepsis due to unspecified organism Qualified Code(s): A41.9 - Sepsis, unspecified organism; A41.9 - Sepsis, unspecified organism; A41.9 - Sepsis, unspecified organism (8) Elevated cholesterol Code(s): E78.0 - PURE HYPERCHOLESTEROLEMIA * DO NOT USE * (9) HTN (hypertension), malignant Code(s): I10 - ESSENTIAL (PRIMARY) HYPERTENSION (10) 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
[2016-11-28] MEDS: ACETAMINOPHEN 325 MG TABLET (FP) PO PRN (23:55)
[2016-11-28] MEDS: PANTOPRAZOLE 20 MG TABLET (FP) PO SCH (23:55)
[2016-11-28] MEDS ORDERED: NITROGLYCERIN SUBLINGUAL 1/150 0.4 MG TAB SL PRN (23:59)
[2016-11-29] MEDS ORDERED: PIPERACILLIN/TAZOB 2.25 GM 2.25 GM in DEXTROSE 5%-WATER - 50 ML IVPB ONE (00:30)
[2016-11-29] MEDS ORDERED: PNEUMOC 13-VAL CONJ-DIP CRM/PF 0.5 ML DISP.SYRIN IM ONE ×2 (02:20→10:00)
[2016-11-29 02:21] VITALS: BMI 30.9
[2016-11-29] MEDS: MAGNESIUM OXIDE 400 MG TABLET (FP) PO SCH ×3 (05:54→21:35)
[2016-11-29] MEDS ORDERED: PT OWN MED DRAWER 7, Y5N ONE ×2 (09:40→16:14)
[2016-11-29] MEDS: ALLOPURINOL 100 MG TABLET (FP) PO SCH (09:50)
[2016-11-29] MEDS: SEVELAMER CARBONATE 800 MG TAB (FP) PO SCH ×3 (09:50→18:38)
[2016-11-29] MEDS: PANTOPRAZOLE 20 MG TABLET (FP) PO SCH ×2 (09:50→21:35)
[2016-11-29] MEDS ORDERED: VANCOMYCIN 1,000 MG in DEXTROSE 5%-WATER - 250 ML IVPB SCH (10:00)
[2016-11-29] MEDS: hydrALAZINE HCL 25 MG TABLET (FP) PO SCH ×2 (10:00→21:35)
[2016-11-29 10:05] LABS: URINE APPEARANCE CLEAR; URINE BILIRUBIN NEGATIVE (NEGATIVE); URINE BLOOD NEGATIVE (NEGATIVE); URINE COLOR LTYELLOW; URINE GLUCOSE (UA) 3+ (NEGATIVE); URINE KETONE NEGATIVE (NEGATIVE); URINE NITRITE NEGATIVE (NEGATIVE); URINE UROBILINOGEN NEGATIVE mg/dL (0.2-1.0)
[2016-11-29 10:11] LABS: MCH 29.7 pg (25.7-33.7); MCHC 31.9 g/dl (32.0-35.9); MEAN CELL VOLUME 93.3 fl (80-96); MEAN PLT VOLUME 8.2 fl (7.5-11.1); PLATELET COUNT 304 K/MM3 (134-434); RDW 15.3 % (11.9-15.9); WHITE BLOOD COUNT 11.1 K/mm3 (4.0-10.0)
[2016-11-29 10:12] LABS: TROPONIN I < 0.02 ng/ml (0.00-0.05)
[2016-11-29 10:14] LABS: URINE PROTEIN 3+ (NEGATIVE)
[2016-11-29 10:22] LABS: URINE BACTERIA RARE /hpf (NONE SEEN); URINE MUCUS RARE; URINE RBC 1 /hpf (0-3); URINE WBC 7 /hpf (3-5)
[2016-11-29 10:24] LABS: ANION GAP 15 (8-16); CALCIUM 8.8 mg/dL (8.5-10.1); CO2 21 mmol/L (21-32); PHOSPHOROUS 5.2 mg/dL (2.5-4.9)
--- NOTE | 2016-11-29 10:48 | CON.NEP ---
Consult Consult Specialty:: Nephrology Referred by:: Dr. Vivas Reason for Consultation:: ESRD on HD - History of Present Illness Chief Complaint: Fever, Pain in foot History of Present Illness: This is a 51 year old Gentleman with PMhx of ESRD on HD (TTS at [facility]), Hypertension, CAD, PVD, DM2, Hx of paraspinal abcess who presented with complaints of fever and TMA stump pain. Pt noted to have a callus on his TMA stump that may have become infected and was being treated by vascular Sx. Pt last had dialysis on Thursday w/o any complication. - History Source History Provided By: Patient Limitations to Obtaining History: No Limitations - Past Medical History Cardio/Vascular: Yes: CAD, CHF (normal ejection fraction; poor LV compliance; no valvular abnormalities), HTN, Hyperlipdemia. No: AFIB, Aneurysm, Aortic Insufficiency, Aortic Stenosis, Deep Vein Thrombosis, [place], Mitral Insufficiency, Mitral Stenosis, Murmur, Pulmonary Hypertension, Other Gastrointestinal: Yes: GERD, GI Bleed. No: Ascites, Cancer, Constipation, Crohn 's Disease, Diverticulitis, Diverticulosis, Esophageal Varices, Gastritis, Hemorrhoids, Hiatal Hernia, Inflamatory Bowel Disease, Irritable Bowel Disease, Pancreatitis, Peptic Ulcer Disease, Ulcerative Colitis, Other Renal/: Yes: Renal Failure, Hemodialysis (ESRD on HD MWF via L arm AVF) Psych: Yes: Anxiety Musculoskeletal: Yes: Other (left metatarsal amputation). No: Bursitis, Chronic low back pain, Hemiparesis, Hemiplegia, Osteoarthritis, Paraplegia Rheumatology: Yes: Gout Endocrine: Yes: Diabetes Mellitus. No: [place]'s Disease, [place]'s Disease, Diabetes Insipidus, Hyperparathyroidism, Hyperthyroidism, Hypothyroidism, Osteopenia, SIADH, Other Additional Medical History: as above in HPI; L eye blindness; on renal transplant list at [facility]. bilateral detached retinas - Past Surgical History Past Surgical History: Yes: Amputation (Left Transmetatarsal), AV Fistula/Graft , CABG (05/2010), Stent (s/p cardiac cath with stent placement). No: None, AAA Repair, AICD, Appendectomy, Arthrosocopy, Bariatric Surgery, Breast Biopsy, Bypass, Carotid Endarterectomy, Cataract Removal, Cholecystectomy, Colectomy, Colonoscopy, Colostomy, Craniotomy, , Cystectomy, Hernia Repair, Hysterectomy, Ileal Conduit, Ileosotomy, Joint Replacement, Kidney Transplant, Laminectomy, Liver Transplant, Mastectomy, Nephrectomy, Oopherectomy, Orchiectomy, Permanent Pacemaker, Prostatectomy, Splenectomy, Thoracotomy, TURP , Tonsillectomy, Tubal Ligation, Upper Endoscopy, Valve Replacement, Vasectomy, Vein Stripping/Ligation - Alcohol/Substance Use Hx Alcohol Use: No History of Substance Use: reports: None - Smoking History Smoking history: Never smoked Have you smoked in the past 12 months: No Aproximately how many cigarettes per day: 2 If you are a former smoker, when did you quit?: 1989 - Social History Usual Living Arrangement: With Spouse ADL: Independent 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 History of Recent Travel: No Home Medications - Allergies Allergies/Adverse Reactions: Allergies Allergy/AdvReac Type Severity Reaction Status Date / Time No Known Drug Allergies Allergy Verified 11/28/16 17:10 - Home Medications Home Medications: Ambulatory Orders Allopurinol [Zyloprim -] 100 mg PO DAILY 11/28/16 Atorvastatin Ca [Lipitor] 80 mg PO HS 11/28/16 Azithromycin 500 mg PO DAILY 11/28/16 Cinacalcet HCl [Sensipar] 30 mg PO DAILY 11/28/16 Ferrous Sulfate 325 mg PO DAILY 11/28/16 Furosemide [Lasix] 80 mg PO DAILY 11/28/16 Furosemide [Lasix] 80 mg PO DAILY 11/28/16 Hydralazine HCl 50 mg PO DAILY 11/28/16 Lisinopril 5 mg PO DAILY 11/28/16 Magnesium Oxide [Mag-Ox -] 400 mg PO TID 11/28/16 Nitroglycerin 0.4 mg SL DAILY PRN 11/28/16 Omeprazole 20 mg PO DAILY 11/28/16 Sevelamer Carbonate [Renvela] 800 mg NR TID 11/28/16 Family Disease History - Family Disease History Family History: Unremarkable Family Disease History: Diabetes: Father, Mother, Other: Father, Mother Review of Systems - Review of Systems Constitutional: reports: Fever. denies: Loss of Appetite Eyes: reports: Blurred Vision HENT: reports: No Symptoms Neck: reports: No Symptoms Cardiovascular: reports: No Symptoms Respiratory: reports: No Symptoms Gastrointestinal: reports: No Symptoms Genitourinary: reports: No Symptoms Neurological: reports: No Symptoms Endocrine: reports: No Symptoms Nephrology Consult - Height Height: 5 ft 8 in - Weight Weight: 203 lb 9.6 oz - BMI Body Mass Index (BMI): 30.9 - Lab Results CBC,BMP: CBC, BMP 11/29/16 09:00 Anion Gap: Anion Gap Anion Gap 12 (8-16) 11/28/16 20:35 - Physical Examination Vital Signs: Vital Signs Temperature 98.3 F 11/29/16 06:00 Pulse Rate 105 H 11/29/16 06:00 Respiratory Rate 20 11/29/16 06:00 Blood Pressure 163/89 11/29/16 06:00 O2 Sat by Pulse Oximetry (%) 95 11/28/16 23:56 Constitutional: Yes: Well Nourished, No Distress Eyes: Yes: Conjunctiva Clear HENT: Yes: Atraumatic, Normocephalic Neck: Yes: Supple Cardiovascular: Yes: Regular Rate and Rhythm, S1, S2. No: JVD, Murmur, Rub Respiratory: Yes: Regular, CTA Bilaterally. No: Rales, Rhonchi, SOB, Wheezes Gastrointestinal: Yes: Normal Bowel Sounds, Soft, Abdomen, Obese. No: Tenderness Access for Hemodialysis: AV Fistula (+ thrill) Edema: Yes Edema: LLE: Trace Wound/Incision: Yes: Other (in dressing) Neurological: Yes: Alert, Oriented Problem List - Problems (1) DM (diabetes mellitus), type 2 with renal complications Code(s): E11.29 - TYPE 2 DIABETES MELLITUS W OTH DIABETIC KIDNEY COMPLICATION Qualifiers: Diabetes mellitus complication detail: with chronic kidney disease Chronic kidney disease stage: on chronic dialysis (2) ESRD (end stage renal disease) on dialysis Code(s): N18.6 - END STAGE RENAL DISEASE Z99.2 - DEPENDENCE ON RENAL DIALYSIS (3) Hypertension Code(s): I10 - ESSENTIAL (PRIMARY) HYPERTENSION Qualifiers: Hypertension type: essential hypertension Qualified Code(s): I10 - Essential (primary) hypertension; I10 - Essential (primary) hypertension; I10 - Essential (primary) hypertension (4) Wound infection Code(s): T14.8 - OTHER INJURY OF UNSPECIFIED BODY REGION * DO NOT USE * L08.9 - LOCAL INFECTION OF THE SKIN AND SUBCUTANEOUS TISSUE, UNSP (5) Fever Code(s): R50.9 - FEVER, UNSPECIFIED Assessment/Plan 51 year old Gentleman with PMhx of ESRD on HD (TTS at [facility]), Hypertension, CAD, PVD, DM2, Hx of paraspinal abcess who presented with complaints of fever and TMA stump pain. #ESRD on HD For dialysis today, 4hr treatment with 2k bath with planned UF of 3-3.5L as tolerated Renal diet Fluid restriction of 1.2 L daily Dose all meds for intermittent HD #Suspected Wound Infection/Fever F/u cultures wound care consider Vascular eval continue Abx Will redose Vanco post HD #Hypertension Continue Lisinpril and Hydralzine Goal BP < 140/90 hold antihypertensives before dialysis #CKD related Anemia Continue Epogen with HD Goal Hgb > 10 #Renal Osteodystrophy Trend PHos and ca levels continue sensipar and renvela Thank you Will follow Antwan Hurley DO Current Medications Acetaminophen (Tylenol -) 650 mg PO Q4H PRN PRN Reason: FEVER OR PAIN Last Admin: 11/28/16 23:55 Dose: 650 mg Allopurinol (Zyloprim -) 100 mg PO DAILY [facility] Last Admin: 11/29/16 09:50 Dose: 100 mg Atorvastatin Calcium (Lipitor -) 80 mg PO HS [facility] Cinacalcet (Sensipar -) 30 mg PO DAILY [facility] Furosemide (Lasix -) 80 mg PO DAILY [facility] Hydralazine HCl (Apresoline -) 25 mg PO BID [facility] Vancomycin HCl 1,000 mg/ (Dextrose) 250 mls @ 250 mls/hr IVPB BID [facility] PRN Reason: Protocol Insulin Aspart (Novolog Vial Sliding Scale -) 1 vial SQ BIDAC [facility] PRN Reason: Protocol Lisinopril (Prinivil) 5 mg PO DAILY [facility] Magnesium Oxide (Mag-Ox -) 400 mg PO TID [facility] Last Admin: 11/29/16 05:54 Dose: 400 mg Nitroglycerin (Nitrostat -) 0.4 mg SL Q5M PRN PRN Reason: FOR CHEST PAIN Pantoprazole Sodium (Protonix -) 20 mg PO BID [facility] Last Admin: 11/29/16 09:50 Dose: 20 mg Sevelamer Carbonate (Renvela -) 800 mg PO TIDCM [facility] Last Admin: 11/29/16 09:50 Dose: 800 mg Vancomycin HCl (Vancomycin (Pre-Docked)) 1,000 mg IVPB ONCE ONE Stop: 11/29/16 11:01
[2016-11-29] MEDS ORDERED: VANCOMYCIN 1 GRAM (PRE-DOCKED) 1,000 MG/250 ML BAG IVPB ONE (11:00)
[2016-11-29] MEDS ORDERED: ACETAMINOPHEN 325 MG TABLET (FP) PO PRN (11:00)
[2016-11-29 11:10] LABS: GLUCOSE,RANDOM 487 mg/dL (74-106)
[2016-11-29 11:11] LABS: CREATININE 8.1 mg/dL (0.7-1.3)
[2016-11-29] MEDS ORDERED: PIPERACILLIN/TAZOB 2.25 GM 2.25 GM in DEXTROSE 5%-WATER - 50 ML IVPB SCH (12:45)
--- NOTE | 2016-11-29 12:53 | CON.ID ---
Consult Consult Specialty:: infectious diseases Reason for Consultation:: cellulitis of the left leg. sepsis - History of Present Illness Chief Complaint: pain and swelling of the left foot History of Present Illness: of Present Illness: This is a 51 year old Gentleman with PMhx of ESRD on HD , Hypertension, CAD, PVD , DM2, Hx of paraspinal abcess who presented with complaints of fever and TMA stump pain. Pt noted to have a callus on his TMA stump was being treated by vascular Sx. patient mentions that he was having fever and the pain was very severe patient has a break in the skin i cannot feel the bone on palpation currently patient is getting dialysis - History Source History Provided By: Patient Limitations to Obtaining History: No Limitations - Past Medical History Cardio/Vascular: Yes: CAD, CHF (normal ejection fraction; poor LV compliance; no valvular abnormalities), HTN, Hyperlipdemia. No: AFIB, Aneurysm, Aortic Insufficiency, Aortic Stenosis, Deep Vein Thrombosis, NV, Mitral Insufficiency, Mitral Stenosis, Murmur, Pulmonary Hypertension, Other Gastrointestinal: Yes: GERD, GI Bleed. No: Ascites, Cancer, Constipation, Crohn 's Disease, Diverticulitis, Diverticulosis, Esophageal Varices, Gastritis, Hemorrhoids, Hiatal Hernia, Inflamatory Bowel Disease, Irritable Bowel Disease, Pancreatitis, Peptic Ulcer Disease, Ulcerative Colitis, Other Renal/: Yes: Renal Failure, Hemodialysis (ESRD on HD MWF via L arm AVF) Psych: Yes: Anxiety Musculoskeletal: Yes: Other (left metatarsal amputation). No: Bursitis, Chronic low back pain, Hemiparesis, Hemiplegia, Osteoarthritis, Paraplegia Rheumatology: Yes: Gout Endocrine: Yes: Diabetes Mellitus. No: [place]'s Disease, [place]'s Disease, Diabetes Insipidus, Hyperparathyroidism, Hyperthyroidism, Hypothyroidism, Osteopenia, SIADH, Other Additional Medical History: as above in HPI; L eye blindness; on renal transplant list at [facility]. bilateral detached retinas - Past Surgical History Past Surgical History: Yes: Amputation (Left Transmetatarsal), AV Fistula/Graft , CABG (05/2010), Stent (s/p cardiac cath with stent placement). No: None, AAA Repair, AICD, Appendectomy, Arthrosocopy, Bariatric Surgery, Breast Biopsy, Bypass, Carotid Endarterectomy, Cataract Removal, Cholecystectomy, Colectomy, Colonoscopy, Colostomy, Craniotomy, , Cystectomy, Hernia Repair, Hysterectomy, Ileal Conduit, Ileosotomy, Joint Replacement, Kidney Transplant, Laminectomy, Liver Transplant, Mastectomy, Nephrectomy, Oopherectomy, Orchiectomy, Permanent Pacemaker, Prostatectomy, Splenectomy, Thoracotomy, TURP , Tonsillectomy, Tubal Ligation, Upper Endoscopy, Valve Replacement, Vasectomy, Vein Stripping/Ligation - Alcohol/Substance Use Hx Alcohol Use: No History of Substance Use: reports: None - Smoking History Smoking history: Never smoked Have you smoked in the past 12 months: No Aproximately how many cigarettes per day: 2 If you are a former smoker, when did you quit?: 1989 - Social History Usual Living Arrangement: With Spouse ADL: Independent 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 History of Recent Travel: No Home Medications - Allergies Allergies/Adverse Reactions: Allergies Allergy/AdvReac Type Severity Reaction Status Date / Time No Known Drug Allergies Allergy Verified 11/28/16 17:10 - Home Medications Home Medications: Ambulatory Orders Allopurinol [Zyloprim -] 100 mg PO DAILY 11/28/16 Atorvastatin Ca [Lipitor] 80 mg PO HS 11/28/16 Azithromycin 500 mg PO DAILY 11/28/16 Cinacalcet HCl [Sensipar] 30 mg PO DAILY 11/28/16 Ferrous Sulfate 325 mg PO DAILY 11/28/16 Furosemide [Lasix] 80 mg PO DAILY 11/28/16 Furosemide [Lasix] 80 mg PO DAILY 11/28/16 Hydralazine HCl 50 mg PO DAILY 11/28/16 Lisinopril 5 mg PO DAILY 11/28/16 Magnesium Oxide [Mag-Ox -] 400 mg PO TID 11/28/16 Nitroglycerin 0.4 mg SL DAILY PRN 11/28/16 Omeprazole 20 mg PO DAILY 11/28/16 Sevelamer Carbonate [Renvela] 800 mg NR TID 11/28/16 Family Disease History - Family Disease History Family Disease History: Diabetes: Father, Mother, Other: Father, Mother Review of Systems - Review of Systems Constitutional: reports: Chills, Fever Eyes: reports: No Symptoms Neck: reports: No Symptoms Cardiovascular: reports: No Symptoms Respiratory: reports: No Symptoms Gastrointestinal: reports: No Symptoms Genitourinary: reports: No Symptoms Musculoskeletal: reports: Muscle Pain, Other Integumentary: reports: Change in Color, Erythema, Wound, Other Neurological: reports: No Symptoms Endocrine: reports: No Symptoms Hematology/Lymphatic: reports: No Symptoms Psychiatric: reports: No Symptoms Physical Exam Vital Signs: Vital Signs Temperature 98.3 F 11/29/16 06:00 Pulse Rate 121 H 11/29/16 12:30 Respiratory Rate 18 11/29/16 12:30 Blood Pressure 178/84 11/29/16 12:30 O2 Sat by Pulse Oximetry (%) 95 11/28/16 23:56 Constitutional: Yes: Well Nourished, Calm, Mild Distress Eyes: Yes: Conjunctiva Clear HENT: Yes: Atraumatic, Normocephalic Neck: Yes: Supple, Trachea Midline Cardiovascular: Yes: Regular Rate and Rhythm Respiratory: Yes: Regular, CTA Bilaterally Gastrointestinal: Yes: Normal Bowel Sounds, Soft Musculoskeletal: Yes: WNL Extremities: Yes: Erythema (of the left foot), Other Integumentary: Yes: Erythema Wound/Incision: Yes: Other (dressing removed wound looked at skin open non healing wound) Psychiatric: Yes: Alert Labs: CBC, BMP 11/29/16 09:00 11/29/16 09:30 Imaging - Results Ultrasound: Report Reviewed, Image Reviewed Assessment/Plan angella List - Problems (1) DM (diabetes mellitus), type 2 with renal complications Code(s): E11.29 - TYPE 2 DIABETES MELLITUS W OTH DIABETIC KIDNEY COMPLICATION Qualifiers: Diabetes mellitus complication detail: with chronic kidney disease Chronic kidney disease stage: on chronic dialysis (2) ESRD (end stage renal disease) on dialysis Code(s): N18.6 - END STAGE RENAL DISEASE Z99.2 - DEPENDENCE ON RENAL DIALYSIS (3) Hypertension Code(s): I10 - ESSENTIAL (PRIMARY) HYPERTENSION Qualifiers: Hypertension type: essential hypertension Qualified Code(s): I10 - Essential (primary) hypertension; I10 - Essential (primary) hypertension; I10 - Essential (primary) hypertension (4) Wound infection Code(s): T14.8 - OTHER INJURY OF UNSPECIFIED BODY REGION * DO NOT USE * L08.9 - LOCAL INFECTION OF THE SKIN AND SUBCUTANEOUS TISSUE, UNSP (5) Fever Code(s): R50.9 - FEVER, UNSPECIFIED i have a suspicion that the patient might have osteo the leg is very warm and tender with patient spiking fevers currently patient is stable plan will start patient on vanco and zosyn vanco according to levels and dialysis schedule wound care on thursday we will do mri of the leg if we can to r/o osteo await for all cx reports
[2016-11-29] MEDS: PIPERACILLIN/TAZOB 2.25 GM 2.25 GM in DEXTROSE 5%-WATER - 50 ML IVPB SCH ×2 (13:00→18:39)
[2016-11-29] MEDS ORDERED: DEXTROSE 5%-WATER - 50 ML IVPB ONE (13:13)
[2016-11-29] MEDS ORDERED: PIPERACILLIN/TAZOBACTAM 2.25 GM VIAL IVPB ONE (13:13)
[2016-11-29] MEDS: ACETAMINOPHEN 325 MG TABLET (FP) PO PRN (15:54)
[2016-11-29] MEDS: INSULIN SLIDING SCALE (NOVOLOG) 1 VIAL SQ SCH (15:59)
[2016-11-29] MEDS: LISINOPRIL 5 MG TABLET (FP) PO SCH (16:05)
[2016-11-29] MEDS: FUROSEMIDE 40 MG TABLET (FP) PO SCH (16:05)
[2016-11-29] MEDS: CINACALCET HCL 30 MG TAB (FP) PO SCH (16:06)
[2016-11-29] MEDS: oxyCODONE HCL 5 MG TABLET PO PRN (17:02)
[2016-11-29 17:14] LABS: URINE LEUK ESTERASE Negative (NEGATIVE)
--- NOTE | 2016-11-29 17:53 | PN ---
Progress Note, Physician Chief Complaint: Pt is still spiking fever ESR >130 C-reactive protein 15.7 No SOB NO Chest pain No palpitations No GI bleeding History of Present Illness: Sepsis with Fever - Current Medication List Current Medications: Active Medications Acetaminophen (Tylenol -) 650 mg PO Q4H PRN PRN Reason: FEVER OR PAIN Last Admin: 11/29/16 15:54 Dose: 650 mg Acetaminophen (Tylenol -) 650 mg PO Q6H PRN PRN Reason: FEVER OR PAIN Allopurinol (Zyloprim -) 100 mg PO DAILY [facility]END[facility] TO [facility] Last Admin: 11/29/16 09:50 Dose: 100 mg Atorvastatin Calcium (Lipitor -) 80 mg PO HS [facility] Cinacalcet (Sensipar -) 30 mg PO DAILY [facility] Last Admin: 11/29/16 16:06 Dose: 30 mg Furosemide (Lasix -) 80 mg PO DAILY [facility] Last Admin: 11/29/16 16:05 Dose: 80 mg Hydralazine HCl (Apresoline -) 25 mg PO BID [facility] Last Admin: 11/29/16 10:00 Dose: Not Given Vancomycin HCl 1,000 mg/ (Dextrose) 250 mls @ 250 mls/hr IVPB BID [facility] PRN Reason: Protocol Piperacillin Sod/Tazobactam (Sod 2.25 gm/ Dextrose) 50 mls @ 100 mls/hr IVPB Q8H-IV SAUNDRA PRN Reason: Protocol Last Admin: 11/29/16 13:00 Dose: Not Given Insulin Aspart (Novolog Vial Sliding Scale -) 1 vial SQ BIDAC [facility] PRN Reason: Protocol Last Admin: 11/29/16 15:59 Dose: 4 units Lisinopril (Prinivil) 5 mg PO DAILY [facility] Last Admin: 11/29/16 16:05 Dose: 5 mg Magnesium Oxide (Mag-Ox -) 400 mg PO TID [facility] Last Admin: 11/29/16 16:07 Dose: 400 mg Nitroglycerin (Nitrostat -) 0.4 mg SL Q5M PRN PRN Reason: FOR CHEST PAIN Oxycodone HCl (Roxicodone -) 10 mg PO Q6H PRN Last Admin: 11/29/16 17:02 Dose: 10 mg Pantoprazole Sodium (Protonix -) 20 mg PO BID [facility] Last Admin: 11/29/16 09:50 Dose: 20 mg Sevelamer Carbonate (Renvela -) 800 mg PO TIDCM [facility] Last Admin: 11/29/16 12:00 Dose: Not Given - Objective Vital Signs: Vital Signs Temperature 101.5 F H 11/29/16 15:35 Pulse Rate 112 H 11/29/16 15:35 Respiratory Rate 20 11/29/16 15:35 Blood Pressure 146/79 11/29/16 15:35 O2 Sat by Pulse Oximetry (%) 95 11/28/16 23:56 Constitutional: Yes: Well Nourished HENT: Yes: Atraumatic, Normocephalic Neck: Yes: Supple, Trachea Midline Cardiovascular: Yes: Regular Rate and Rhythm, S1, S2 Respiratory: Yes: Regular, CTA Bilaterally Gastrointestinal: Yes: Normal Bowel Sounds, Soft Musculoskeletal: Yes: Back Pain Extremities: Yes: Other (TMT amputations) Peripheral Pulses WNL: Yes Neurological: Yes: Alert, Oriented, Cran Nerves II-XII Intact Labs: CBC, BMP 11/29/16 09:00 11/29/16 15:30 Problem List - Problems (1) Diabetes mellitus Code(s): E11.9 - TYPE 2 DIABETES MELLITUS WITHOUT COMPLICATIONS Qualifiers: Diabetes mellitus type: type 2 Diabetes mellitus complication status: with kidney complications Diabetes mellitus complication detail: with chronic kidney disease (2) Elevated cholesterol Code(s): E78.0 - PURE HYPERCHOLESTEROLEMIA * DO NOT USE * (3) Systolic and diastolic CHF, chronic Code(s): I50.42 - CHRONIC COMBINED SYSTOLIC AND DIASTOLIC HRT FAIL (4) 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A (5) Asthma Code(s): J45.909 - UNSPECIFIED ASTHMA, UNCOMPLICATED Qualifiers: Asthma severity: mild intermittent Asthma complication type: with acute exacerbation (6) Back pain Code(s): M54.9 - DORSALGIA, UNSPECIFIED Qualifiers: Chronicity: acute Assessment/Plan (1) Fever Code(s): R50.9 - FEVER, UNSPECIFIED (2) ESRD (end stage renal disease) on dialysis Code(s): N18.6 - END STAGE RENAL DISEASE Z99.2 - DEPENDENCE ON RENAL DIALYSIS (3) Systolic and diastolic CHF, chronic Code(s): I50.42 - CHRONIC COMBINED SYSTOLIC AND DIASTOLIC HRT FAIL (4) Anemia in ESRD (end-stage renal disease) Code(s): N18.6 - END STAGE RENAL DISEASE D63.1 - ANEMIA IN CHRONIC KIDNEY DISEASE (5) Diabetes mellitus Code(s): E11.9 - TYPE 2 DIABETES MELLITUS WITHOUT COMPLICATIONS Qualifiers: Diabetes mellitus type: type 2 Diabetes mellitus complication status: with kidney complications Diabetes mellitus complication detail: with chronic kidney disease (6) Posterior neck pain Code(s): M54.2 - CERVICALGIA (7) Sepsis Code(s): A41.9 - SEPSIS, UNSPECIFIED ORGANISM Qualifiers: Sepsis type: sepsis due to unspecified organism Qualified Code(s): A41.9 - Sepsis, unspecified organism; A41.9 - Sepsis, unspecified organism; A41.9 - Sepsis, unspecified organism (8) Elevated cholesterol Code(s): E78.0 - PURE HYPERCHOLESTEROLEMIA * DO NOT USE * (9) HTN (hypertension), malignant Code(s): I10 - ESSENTIAL (PRIMARY) HYPERTENSION (10) 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
--- NOTE | 2016-11-29 18:37 | EKG ---
Test Reason : Blood Pressure : / mmHG Vent. Rate : 110 BPM Atrial Rate : 110 BPM P-R Int : 178 ms QRS Dur : 094 ms QT Int : 334 ms P-R-T Axes : 065 014 067 degrees QTc Int : 452 ms SINUS TACHYCARDIA ANTEROSEPTAL INFARCT (CITED ON OR BEFORE 13-DEC-2009) ABNORMAL ECG WHEN COMPARED WITH ECG OF 28-NOV-2016 23:40, NO SIGNIFICANT CHANGE WAS FOUND REPEAT EKG IF CLINICALLY INDICATED Confirmed by MICKEY KANG MD ([id number]) on 11/29/2016 6:37:22 PM Referred By: Josias ZAMBRANO Confirmed By:MICKEY KANG MD
--- NOTE | 2016-11-29 18:58 | EKG ---
Test Reason : Blood Pressure : / mmHG Vent. 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
[2016-11-29] MEDS: ATORVASTATIN CA 80 MG TABLET (FP) PO SCH (21:35)
[2016-11-29] MEDS: INSULIN DETEMIR 100 UNITS/ML MDV SQ SCH (21:38)
[2016-11-30] MEDS: oxyCODONE HCL 5 MG TABLET PO PRN ×3 (02:32→15:53)
[2016-11-30] MEDS: ACETAMINOPHEN 325 MG TABLET (FP) PO PRN ×3 (02:32→15:52)
[2016-11-30] MEDS ORDERED: PIPERACILLIN/TAZOBACTAM 2.25 GM VIAL IVPB ONE ×2 (02:33→02:48)
[2016-11-30] MEDS ORDERED: DEXTROSE 5%-WATER - 50 ML IVPB ONE ×2 (02:33→02:48)
[2016-11-30] MEDS: PIPERACILLIN/TAZOB 2.25 GM 2.25 GM in DEXTROSE 5%-WATER - 50 ML IVPB SCH ×3 (02:48→17:10)
[2016-11-30] MEDS ORDERED: INSULIN (NOVOLOG) ASPART 100 UNITS/ML 10ML VIAL ONE ×2 (06:48→16:06)
[2016-11-30] MEDS: INSULIN SLIDING SCALE (NOVOLOG) 1 VIAL SQ SCH ×2 (06:50→17:11)
[2016-11-30] MEDS: MAGNESIUM OXIDE 400 MG TABLET (FP) PO SCH ×3 (06:50→21:34)
[2016-11-30 08:43] LABS: BASOPHIL 0.7 % (0-2.0); EOSINOPHIL 6.5 % (0-4.5); MCH 30.4 pg (25.7-33.7); MCHC 32.9 g/dl (32.0-35.9); MEAN CELL VOLUME 92.4 fl (80-96); MEAN PLT VOLUME 7.7 fl (7.5-11.1); NEUTROPHILS 78.5 % (42.8-82.8); PLATELET COUNT 296 K/MM3 (134-434); RDW 14.9 % (11.9-15.9); WHITE BLOOD COUNT 10.2 K/mm3 (4.0-10.0)
[2016-11-30 08:48] LABS: ANION GAP 10 (8-16); CALCIUM 8.6 mg/dL (8.5-10.1); CO2 31 mmol/L (21-32); CREATININE 6.3 mg/dL (0.7-1.3); GLUCOSE,RANDOM 141 mg/dL (74-106); MAGNESIUM 2.1 mg/dL (1.8-2.4); PHOSPHOROUS 4.4 mg/dL (2.5-4.9)
[2016-11-30] MEDS: SEVELAMER CARBONATE 800 MG TAB (FP) PO SCH ×3 (08:49→17:10)
[2016-11-30] MEDS: PANTOPRAZOLE 20 MG TABLET (FP) PO SCH ×2 (10:40→21:34)
[2016-11-30] MEDS: hydrALAZINE HCL 25 MG TABLET (FP) PO SCH ×2 (10:40→21:34)
[2016-11-30] MEDS: LISINOPRIL 5 MG TABLET (FP) PO SCH (10:40)
[2016-11-30] MEDS: CINACALCET HCL 30 MG TAB (FP) PO SCH (10:41)
[2016-11-30] MEDS: ALLOPURINOL 100 MG TABLET (FP) PO SCH (10:41)
[2016-11-30] MEDS: FUROSEMIDE 40 MG TABLET (FP) PO SCH (10:41)
--- NOTE | 2016-11-30 13:28 | PN ---
Progress Note, Physician History of Present Illness: patient doing well says he feels much better spiking low grade fevers no complaints - Current Medication List Current Medications: Active Medications Acetaminophen (Tylenol -) 650 mg PO Q4H PRN PRN Reason: FEVER OR PAIN Last Admin: 11/30/16 10:47 Dose: 650 mg Acetaminophen (Tylenol -) 650 mg PO Q6H PRN PRN Reason: FEVER OR PAIN Allopurinol (Zyloprim -) 100 mg PO DAILY [facility] Last Admin: 11/30/16 10:41 Dose: 100 mg Atorvastatin Calcium (Lipitor -) 80 mg PO HS [facility] Last Admin: 11/29/16 21:35 Dose: 80 mg Cinacalcet (Sensipar -) 30 mg PO DAILY [facility] Last Admin: 11/30/16 10:41 Dose: 30 mg Furosemide (Lasix -) 80 mg PO DAILY [facility] Last Admin: 11/30/16 10:41 Dose: 80 mg Hydralazine HCl (Apresoline -) 25 mg PO BID [facility] Last Admin: 11/30/16 10:40 Dose: 25 mg Vancomycin HCl 1,000 mg/ (Dextrose) 250 mls @ 250 mls/hr IVPB BID [facility] PRN Reason: Protocol Piperacillin Sod/Tazobactam (Sod 2.25 gm/ Dextrose) 50 mls @ 100 mls/hr IVPB Q8H-IV [facility]UNDRA PRN Reason: Protocol Last Admin: 11/30/16 11:24 Dose: 100 mls/hr Insulin Aspart (Novolog Vial Sliding Scale -) 1 vial SQ BIDAC [facility] PRN Reason: Protocol Last Admin: 11/30/16 06:50 Dose: Not Given Insulin Detemir (Levemir Vial) 15 units SQ HS [facility] Last Admin: 11/29/16 21:38 Dose: 15 units Lisinopril (Prinivil) 5 mg PO DAILY [facility] Last Admin: 11/30/16 10:40 Dose: 5 mg Magnesium Oxide (Mag-Ox -) 400 mg PO TID [facility] Last Admin: 11/30/16 06:50 Dose: 400 mg Nitroglycerin (Nitrostat -) 0.4 mg SL Q5M PRN PRN Reason: FOR CHEST PAIN Oxycodone HCl (Roxicodone -) 10 mg PO Q6H PRN Last Admin: 11/30/16 10:46 Dose: 10 mg Pantoprazole Sodium (Protonix -) 20 mg PO BID [facility] Last Admin: 11/30/16 10:40 Dose: 20 mg Sevelamer Carbonate (Renvela -) 800 mg PO TIDCM [facility] Last Admin: 11/30/16 11:25 Dose: 800 mg - Objective Vital Signs: Vital Signs Temperature 98.3 F 11/30/16 06:00 Pulse Rate 93 H 11/30/16 06:00 Respiratory Rate 18 11/29/16 20:02 Blood Pressure 145/83 11/30/16 06:00 O2 Sat by Pulse Oximetry (%) 96 11/30/16 09:00 Constitutional: Yes: No Distress, Calm Cardiovascular: Yes: Regular Rate and Rhythm Respiratory: Yes: Regular, CTA Bilaterally Gastrointestinal: Yes: Normal Bowel Sounds, Soft Musculoskeletal: Yes: Other Extremities: Yes: Other Integumentary: Yes: Erythema (decreasing) Wound/Incision: Yes: Dressing Dry and Intact Neurological: Yes: Alert, Oriented Psychiatric: Yes: Alert, Oriented Labs: CBC, BMP 11/30/16 07:35 11/30/16 07:35 Assessment/[facility] List - Problems (1) DM (diabetes mellitus), type 2 with renal complications Code(s): E11.29 - TYPE 2 DIABETES MELLITUS W OTH DIABETIC KIDNEY COMPLICATION Qualifiers: Diabetes mellitus complication detail: with chronic kidney disease Chronic kidney disease stage: on chronic dialysis (2) ESRD (end stage renal disease) on dialysis Code(s): N18.6 - END STAGE RENAL DISEASE Z99.2 - DEPENDENCE ON RENAL DIALYSIS (3) Hypertension Code(s): I10 - ESSENTIAL (PRIMARY) HYPERTENSION Qualifiers: Hypertension type: essential hypertension Qualified Code(s): I10 - Essential (primary) hypertension; I10 - Essential (primary) hypertension; I10 - Essential (primary) hypertension (4) Wound infection Code(s): T14.8 - OTHER INJURY OF UNSPECIFIED BODY REGION * DO NOT USE * L08.9 - LOCAL INFECTION OF THE SKIN AND SUBCUTANEOUS TISSUE, UNSP (5) Fever Code(s): R50.9 - FEVER, UNSPECIFIED plan continue abx mri we will order tomorrow
--- NOTE | 2016-11-30 20:05 | PN ---
Progress Note, Physician Chief Complaint: Pt is still spiking fever ESR >130 C-reactive protein 15.7 No SOB NO Chest pain No palpitations No GI bleeding History of Present Illness: Sepsis with Fever - Current Medication List Current Medications: Active Medications Acetaminophen (Tylenol -) 650 mg PO Q4H PRN PRN Reason: FEVER OR PAIN Last Admin: 11/30/16 15:52 Dose: 650 mg Acetaminophen (Tylenol -) 650 mg PO Q6H PRN PRN Reason: FEVER OR PAIN Allopurinol (Zyloprim -) 100 mg PO DAILY [facility] Last Admin: 11/30/16 10:41 Dose: 100 mg Atorvastatin Calcium (Lipitor -) 80 mg PO HS [facility] Last Admin: 11/29/16 21:35 Dose: 80 mg Cinacalcet (Sensipar -) 30 mg PO DAILY [facility] Last Admin: 11/30/16 10:41 Dose: 30 mg Furosemide (Lasix -) 80 mg PO DAILY [facility] Last Admin: 11/30/16 10:41 Dose: 80 mg Hydralazine HCl (Apresoline -) 25 mg PO BID [facility] Last Admin: 11/30/16 10:40 Dose: 25 mg Vancomycin HCl 1,000 mg/ (Dextrose) 250 mls @ 250 mls/hr IVPB BID [facility] PRN Reason: Protocol Piperacillin Sod/Tazobactam (Sod 2.25 gm/ Dextrose) 50 mls @ 100 mls/hr IVPB Q8H-IV [facility]DR[facility] PRN Reason: Protocol Last Admin: 11/30/16 17:10 Dose: 100 mls/hr Insulin Aspart (Novolog Vial Sliding Scale -) 1 vial SQ BIDAC [facility] PRN Reason: Protocol Last Admin: 11/30/16 17:11 Dose: 6 units Insulin Detemir (Levemir Vial) 15 units SQ HS [facility] Last Admin: 11/29/16 21:38 Dose: 15 units Lisinopril (Prinivil) 5 mg PO DAILY [facility] Last Admin: 11/30/16 10:40 Dose: 5 mg Magnesium Oxide (Mag-Ox -) 400 mg PO TID [facility] Last Admin: 11/30/16 13:50 Dose: 400 mg Nitroglycerin (Nitrostat -) 0.4 mg SL Q5M PRN PRN Reason: FOR CHEST PAIN Oxycodone HCl (Roxicodone -) 10 mg PO Q4H PRN Last Admin: 11/30/16 15:53 Dose: 10 mg Pantoprazole Sodium (Protonix -) 20 mg PO BID [facility] Last Admin: 11/30/16 10:40 Dose: 20 mg Sevelamer Carbonate (Renvela -) 800 mg PO TIDCM [facility] Last Admin: 11/30/16 17:10 Dose: 800 mg - Objective Vital Signs: Vital Signs Temperature 99.8 F H 11/30/16 18:00 Pulse Rate 99 H 11/30/16 18:00 Respiratory Rate 18 11/30/16 18:00 Blood Pressure 130/72 11/30/16 18:00 O2 Sat by Pulse Oximetry (%) 96 11/30/16 09:00 Constitutional: Yes: Well Nourished HENT: Yes: Atraumatic, Normocephalic Neck: Yes: Supple, Trachea Midline Cardiovascular: Yes: Regular Rate and Rhythm, S1, S2 Respiratory: Yes: Regular, CTA Bilaterally Gastrointestinal: Yes: Normal Bowel Sounds, Soft Musculoskeletal: Yes: Other (Pt is having Leg pain/Claudication S/P TMTA) Edema: No Neurological: Yes: Alert, Oriented, Cran Nerves II-XII Intact Labs: CBC, BMP 11/30/16 07:35 11/30/16 07:35 Problem List - Problems (1) Diabetes mellitus Code(s): E11.9 - TYPE 2 DIABETES MELLITUS WITHOUT COMPLICATIONS Qualifiers: Diabetes mellitus type: type 2 Diabetes mellitus complication status: with kidney complications Diabetes mellitus complication detail: with chronic kidney disease (2) Elevated cholesterol Code(s): E78.0 - PURE HYPERCHOLESTEROLEMIA * DO NOT USE * (3) Systolic and diastolic CHF, chronic Code(s): I50.42 - CHRONIC COMBINED SYSTOLIC AND DIASTOLIC HRT FAIL (4) 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A (5) Asthma Code(s): J45.909 - UNSPECIFIED ASTHMA, UNCOMPLICATED Qualifiers: Asthma severity: mild intermittent Asthma complication type: with acute exacerbation (6) Back pain Code(s): M54.9 - DORSALGIA, UNSPECIFIED Qualifiers: Chronicity: acute Assessment/Plan (1) Fever Code(s): R50.9 - FEVER, UNSPECIFIED (2) ESRD (end stage renal disease) on dialysis Code(s): N18.6 - END STAGE RENAL DISEASE Z99.2 - DEPENDENCE ON RENAL DIALYSIS (3) Systolic and diastolic CHF, chronic Code(s): I50.42 - CHRONIC COMBINED SYSTOLIC AND DIASTOLIC HRT FAIL (4) Anemia in ESRD (end-stage renal disease) Code(s): N18.6 - END STAGE RENAL DISEASE D63.1 - ANEMIA IN CHRONIC KIDNEY DISEASE (5) Diabetes mellitus Code(s): E11.9 - TYPE 2 DIABETES MELLITUS WITHOUT COMPLICATIONS Qualifiers: Diabetes mellitus type: type 2 Diabetes mellitus complication status: with kidney complications Diabetes mellitus complication detail: with chronic kidney disease (6) Posterior neck pain Code(s): M54.2 - CERVICALGIA (7) Sepsis Code(s): A41.9 - SEPSIS, UNSPECIFIED ORGANISM Qualifiers: Sepsis type: sepsis due to unspecified organism Qualified Code(s): A41.9 - Sepsis, unspecified organism; A41.9 - Sepsis, unspecified organism; A41.9 - Sepsis, unspecified organism (8) Elevated cholesterol Code(s): E78.0 - PURE HYPERCHOLESTEROLEMIA * DO NOT USE * (9) HTN (hypertension), malignant Code(s): I10 - ESSENTIAL (PRIMARY) HYPERTENSION (10) 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
[2016-11-30] MEDS: INSULIN DETEMIR 100 UNITS/ML MDV SQ SCH (21:33)
[2016-11-30] MEDS: ATORVASTATIN CA 80 MG TABLET (FP) PO SCH (21:34)
[2016-12-01] MEDS ORDERED: DEXTROSE 5%-WATER - 50 ML IVPB ONE ×3 (02:38→16:29)
[2016-12-01] MEDS ORDERED: PIPERACILLIN/TAZOBACTAM 2.25 GM VIAL IVPB ONE ×3 (02:38→16:28)
[2016-12-01] MEDS: PIPERACILLIN/TAZOB 2.25 GM 2.25 GM in DEXTROSE 5%-WATER - 50 ML IVPB SCH ×3 (02:45→17:10)
[2016-12-01] MEDS: oxyCODONE HCL 5 MG TABLET PO PRN ×3 (06:13→22:13)
[2016-12-01] MEDS: MAGNESIUM OXIDE 400 MG TABLET (FP) PO SCH ×3 (06:14→22:01)
[2016-12-01] MEDS: ACETAMINOPHEN 325 MG TABLET (FP) PO PRN ×3 (06:15→22:14)
[2016-12-01] MEDS ORDERED: INSULIN (NOVOLOG) ASPART 100 UNITS/ML 10ML VIAL ONE ×2 (06:18→16:28)
[2016-12-01] MEDS: INSULIN SLIDING SCALE (NOVOLOG) 1 VIAL SQ SCH ×2 (06:30→17:08)
[2016-12-01] MEDS: SEVELAMER CARBONATE 800 MG TAB (FP) PO SCH ×3 (07:59→17:09)
[2016-12-01] MEDS ORDERED: PT OWN MED DRAWER 7, Y5N ONE (08:30)
[2016-12-01 09:14] LABS: ANION GAP 14 (8-16); CALCIUM 8.4 mg/dL (8.5-10.1); CO2 26 mmol/L (21-32); GLUCOSE,RANDOM 231 mg/dL (74-106)
[2016-12-01] MEDS: FUROSEMIDE 40 MG TABLET (FP) PO SCH (09:31)
[2016-12-01] MEDS: CINACALCET HCL 30 MG TAB (FP) PO SCH (09:31)
[2016-12-01] MEDS: ALLOPURINOL 100 MG TABLET (FP) PO SCH (09:32)
[2016-12-01] MEDS: PANTOPRAZOLE 20 MG TABLET (FP) PO SCH ×2 (09:32→22:01)
[2016-12-01] MEDS: LISINOPRIL 5 MG TABLET (FP) PO SCH (09:32)
[2016-12-01] MEDS: hydrALAZINE HCL 25 MG TABLET (FP) PO SCH ×2 (09:32→22:01)
[2016-12-01 09:37] LABS: CREATININE 8.3 mg/dL (0.7-1.3)
[2016-12-01 14:12] LABS: HEP B SURFACE AB Reactive (.)
--- NOTE | 2016-12-01 14:50 | PN ---
Progress Note, Physician Chief Complaint: Pt is still having Low grade Fever Vascular Eval awaited History of Present Illness: Pt is still having Low grade fever No SOB NO Chest pain No Abd pain No GI bleeding - Current Medication List Current Medications: Active Medications Acetaminophen (Tylenol -) 650 mg PO Q4H PRN PRN Reason: FEVER OR PAIN Last Admin: 12/01/16 12:28 Dose: 650 mg Acetaminophen (Tylenol -) 650 mg PO Q6H PRN PRN Reason: FEVER OR PAIN Allopurinol (Zyloprim -) 100 mg PO DAILY [facility] Last Admin: 12/01/16 09:32 Dose: 100 mg Atorvastatin Calcium (Lipitor -) 80 mg PO HS [facility] Last Admin: 11/30/16 21:34 Dose: 80 mg Cinacalcet (Sensipar -) 30 mg PO DAILY [facility] Last Admin: 12/01/16 09:31 Dose: 30 mg Furosemide (Lasix -) 80 mg PO DAILY [facility] Last Admin: 12/01/16 09:31 Dose: 80 mg Hydralazine HCl (Apresoline -) 25 mg PO BID [facility] Last Admin: 12/01/16 09:32 Dose: 25 mg Vancomycin HCl 1,000 mg/ (Dextrose) 250 mls @ 250 mls/hr IVPB TuThSa [facility] PRN Reason: Protocol Piperacillin Sod/Tazobactam (Sod 2.25 gm/ Dextrose) 50 mls @ 100 mls/hr IVPB Q8H-IV [facility] PRN Reason: Protocol Last Admin: 12/01/16 09:30 Dose: 100 mls/hr Insulin Aspart (Novolog Vial Sliding Scale -) 1 vial SQ BIDAC [facility] PRN Reason: Protocol Last Admin: 12/01/16 06:30 Dose: 6 units Insulin Detemir (Levemir Vial) 15 units SQ [facility] Last Admin: 11/30/16 21:33 Dose: 15 units Lisinopril (Prinivil) 5 mg PO DAILY [facility] Last Admin: 12/01/16 09:32 Dose: 5 mg Magnesium Oxide (Mag-Ox -) 400 mg PO TID [facility] Last Admin: 12/01/16 13:45 Dose: 400 mg Nitroglycerin (Nitrostat -) 0.4 mg SL Q5M PRN PRN Reason: FOR CHEST PAIN Oxycodone HCl (Roxicodone -) 10 mg PO Q4H PRN Last Admin: 12/01/16 12:29 Dose: 10 mg Pantoprazole Sodium (Protonix -) 20 mg PO BID [facility] Last Admin: 12/01/16 09:32 Dose: 20 mg Sevelamer Carbonate (Renvela -) 800 mg PO TIDCM [facility] Last Admin: 12/01/16 11:25 Dose: 800 mg - Objective Vital Signs: Vital Signs Temperature 99.2 F 12/01/16 13:49 Pulse Rate 101 H 12/01/16 13:49 Respiratory Rate 20 12/01/16 13:49 Blood Pressure 140/74 12/01/16 13:49 O2 Sat by Pulse Oximetry (%) 97 12/01/16 09:00 Constitutional: Yes: Well Nourished Eyes: Yes: Conjunctiva Clear HENT: Yes: Atraumatic, Normocephalic Neck: Yes: Supple, Trachea Midline Cardiovascular: Yes: Regular Rate and Rhythm, S1, S2 Respiratory: Yes: Regular, CTA Bilaterally Gastrointestinal: Yes: Normal Bowel Sounds, Soft Edema: No Neurological: Yes: Alert, Oriented, Cran Nerves II-XII Intact Labs: CBC, BMP 11/30/16 07:35 12/01/16 07:40 Problem List - Problems (1) Fever Code(s): R50.9 - FEVER, UNSPECIFIED (2) ESRD (end stage renal disease) on dialysis Code(s): N18.6 - END STAGE RENAL DISEASE Z99.2 - DEPENDENCE ON RENAL DIALYSIS (3) Systolic and diastolic CHF, chronic Code(s): I50.42 - CHRONIC COMBINED SYSTOLIC AND DIASTOLIC HRT FAIL (4) Anemia in ESRD (end-stage renal disease) Code(s): N18.6 - END STAGE RENAL DISEASE D63.1 - ANEMIA IN CHRONIC KIDNEY DISEASE (5) Diabetes mellitus Code(s): E11.9 - TYPE 2 DIABETES MELLITUS WITHOUT COMPLICATIONS Qualifiers: Diabetes mellitus type: type 2 Diabetes mellitus complication status: with kidney complications Diabetes mellitus complication detail: with chronic kidney disease (6) Posterior neck pain Code(s): M54.2 - CERVICALGIA (7) Sepsis Code(s): A41.9 - SEPSIS, UNSPECIFIED ORGANISM Qualifiers: Sepsis type: sepsis due to unspecified organism Qualified Code(s): A41.9 - Sepsis, unspecified organism; A41.9 - Sepsis, unspecified organism; A41.9 - Sepsis, unspecified organism (8) Elevated cholesterol Code(s): E78.0 - PURE HYPERCHOLESTEROLEMIA * DO NOT USE * (9) HTN (hypertension), malignant Code(s): I10 - ESSENTIAL (PRIMARY) HYPERTENSION (10) 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A Assessment/Plan (1) Fever Code(s): R50.9 - FEVER, UNSPECIFIED (2) ESRD (end stage renal disease) on dialysis Code(s): N18.6 - END STAGE RENAL DISEASE Z99.2 - DEPENDENCE ON RENAL DIALYSIS (3) Systolic and diastolic CHF, chronic Code(s): I50.42 - CHRONIC COMBINED SYSTOLIC AND DIASTOLIC HRT FAIL (4) Anemia in ESRD (end-stage renal disease) Code(s): N18.6 - END STAGE RENAL DISEASE D63.1 - ANEMIA IN CHRONIC KIDNEY DISEASE (5) Diabetes mellitus Code(s): E11.9 - TYPE 2 DIABETES MELLITUS WITHOUT COMPLICATIONS Qualifiers: Diabetes mellitus type: type 2 Diabetes mellitus complication status: with kidney complications Diabetes mellitus complication detail: with chronic kidney disease (6) Posterior neck pain Code(s): M54.2 - CERVICALGIA (7) Sepsis Code(s): A41.9 - SEPSIS, UNSPECIFIED ORGANISM Qualifiers: Sepsis type: sepsis due to unspecified organism Qualified Code(s): A41.9 - Sepsis, unspecified organism; A41.9 - Sepsis, unspecified organism; A41.9 - Sepsis, unspecified organism (8) Elevated cholesterol Code(s): E78.0 - PURE HYPERCHOLESTEROLEMIA * DO NOT USE * (9) HTN (hypertension), malignant Code(s): I10 - ESSENTIAL (PRIMARY) HYPERTENSION (10) 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 Pt will have MRI PT will be seen by vascular Dr Rose Kennedy
--- NOTE | 2016-12-01 16:25 | PN ---
Progress Note (short form) - Note Progress Note: Renal Follow up for ESRD on HD Pt seen and examined at the bedside awake and alert no acute complaints last dialysis was thursday as a inpatient denies any sob, chest pain, and pain, N/V/D Vital Signs Temperature 99.2 F 12/01/16 13:49 Pulse Rate 101 H 12/01/16 13:49 Respiratory Rate 20 12/01/16 13:49 Blood Pressure 140/74 12/01/16 13:49 O2 Sat by Pulse Oximetry (%) 97 12/01/16 09:00 Intake & Output 11/28/16 11/29/16 11/30/16 12/01/16 23:59 23:59 23:59 23:59 Intake Total 1850 1050 600 Output Total 400 Balance 1850 650 600 Weight 191 lb 203 lb 9.6 oz 203 lb 4.8 oz 204 lb 6 oz NAD RRR, No M/R CTA, no rales soft, obese, NT/ND left foot in dressing, trace edema left leg CBC, BMP 11/30/16 07:35 12/01/16 07:40 Current Medications Acetaminophen (Tylenol -) 650 mg PO Q4H PRN PRN Reason: FEVER OR PAIN Last Admin: 12/01/16 12:28 Dose: 650 mg Acetaminophen (Tylenol -) 650 mg PO Q6H PRN PRN Reason: FEVER OR PAIN Allopurinol (Zyloprim -) 100 mg PO DAILY [facility] Last Admin: 12/01/16 09:32 Dose: 100 mg Atorvastatin Calcium (Lipitor -) 80 mg PO HS [facility] Last Admin: 11/30/16 21:34 Dose: 80 mg Cinacalcet (Sensipar -) 30 mg PO DAILY [facility] Last Admin: 12/01/16 09:31 Dose: 30 mg Furosemide (Lasix -) 80 mg PO DAILY [facility] Last Admin: 12/01/16 09:31 Dose: 80 mg Hydralazine HCl (Apresoline -) 25 mg PO BID [facility] Last Admin: 12/01/16 09:32 Dose: 25 mg Vancomycin HCl 1,000 mg/ (Dextrose) 250 mls @ 250 mls/hr IVPB TuThSa [facility] PRN Reason: Protocol Piperacillin Sod/Tazobactam (Sod 2.25 gm/ Dextrose) 50 mls @ 100 mls/hr IVPB Q8H-IV [facility] PRN Reason: Protocol Last Admin: 12/01/16 09:30 Dose: 100 mls/hr Insulin Aspart (Novolog Vial Sliding Scale -) 1 vial SQ BIDAC [facility] PRN Reason: Protocol Last Admin: 12/01/16 06:30 Dose: 6 units Insulin Detemir (Levemir Vial) 15 units SQ HS [facility] Last Admin: 11/30/16 21:33 Dose: 15 units Lisinopril (Prinivil) 5 mg PO DAILY [facility] Last Admin: 12/01/16 09:32 Dose: 5 mg Magnesium Oxide (Mag-Ox -) 400 mg PO TID [facility] Last Admin: 12/01/16 13:45 Dose: 400 mg Nitroglycerin (Nitrostat -) 0.4 mg SL Q5M PRN PRN Reason: FOR CHEST PAIN Oxycodone HCl (Roxicodone -) 10 mg PO Q4H PRN Last Admin: 12/01/16 12:29 Dose: 10 mg Pantoprazole Sodium (Protonix -) 20 mg PO BID [facility] Last Admin: 12/01/16 09:32 Dose: 20 mg Sevelamer Carbonate (Renvela -) 800 mg PO TIDCM [facility] Last Admin: 12/01/16 11:25 Dose: 800 mg 51 year old Gentleman with PMhx of ESRD on HD (TTS at [facility]), Hypertension, CAD, PVD, DM2, Hx of paraspinal abcess who presented with complaints of fever and TMA stump pain. #ESRD on HD no acute indication for DISPOSAL MAN today, next treatment tomorrow #Suspected Wound Infection/Fever F/u cultures wound care MRI ordered #Hypertension Continue Lisinpril and Hydralzine Goal BP < 140/90 hold antihypertensives before dialysis #CKD related Anemia Continue Epogen with HD Goal Hgb > 10 #Renal Osteodystrophy Trend PHos and ca levels continue sensipar and renvela Thank you Will follow Antwan Hurley DO Problem List - Problems (1) DM (diabetes mellitus), type 2 with renal complications Code(s): E11.29 - TYPE 2 DIABETES MELLITUS W OTH DIABETIC KIDNEY COMPLICATION Qualifiers: Diabetes mellitus complication detail: with chronic kidney disease Chronic kidney disease stage: on chronic dialysis (2) ESRD (end stage renal disease) on dialysis Code(s): N18.6 - END STAGE RENAL DISEASE Z99.2 - DEPENDENCE ON RENAL DIALYSIS (3) Hypertension Code(s): I10 - ESSENTIAL (PRIMARY) HYPERTENSION Qualifiers: Hypertension type: essential hypertension Qualified Code(s): I10 - Essential (primary) hypertension; I10 - Essential (primary) hypertension; I10 - Essential (primary) hypertension (4) Wound infection Code(s): T14.8 - OTHER INJURY OF UNSPECIFIED BODY REGION * DO NOT USE * L08.9 - LOCAL INFECTION OF THE SKIN AND SUBCUTANEOUS TISSUE, UNSP (5) Fever Code(s): R50.9 - FEVER, UNSPECIFIED
--- NOTE | 2016-12-01 17:41 | CONSULT ---
Consult - History of Present Illness History of Present Illness: 51 year old man followed with left foot wound following TMA several years ago. He was seen last week and callus over lateral stump ulcer debrided. He states he developed pain in his leg and ankle and came to the hospital. He now has a new blister on the medial aspect of the mid foot. - Past Medical History Cardio/Vascular: Yes: CAD, CHF (normal ejection fraction; poor LV compliance; no valvular abnormalities), HTN, Hyperlipdemia. No: AFIB, Aneurysm, Aortic Insufficiency, Aortic Stenosis, Deep Vein Thrombosis, MO, Mitral Insufficiency, Mitral Stenosis, Murmur, Pulmonary Hypertension, Other Gastrointestinal: Yes: GERD, GI Bleed. No: Constipation, Crohn's Disease, Diverticulitis, Diverticulosis, Esophageal Varices, Gastritis, Hemorrhoids, Hiatal Hernia, Inflamatory Bowel Disease, Irritable Bowel Disease, Pancreatitis , Peptic Ulcer Disease, Ulcerative Colitis, Other Renal/: Yes: Renal Failure, Hemodialysis (ESRD on HD MWF via L arm AVF) Psych: Yes: Anxiety Musculoskeletal: Yes: Other (left metatarsal amputation). No: Bursitis, Chronic low back pain, Hemiparesis, Hemiplegia, Osteoarthritis, Paraplegia Rheumatology: Yes: Gout Endocrine: Yes: Diabetes Mellitus. No: Zapata's Disease, [place]'s Disease, Diabetes Insipidus, Hyperparathyroidism, Hyperthyroidism, Hypothyroidism, Osteopenia, SIADH, Other Additional Medical History: as above in HPI; L eye blindness; on renal transplant list at [facility]. bilateral detached retinas - Past Surgical History Past Surgical History: Yes: Amputation (Left Transmetatarsal), AV Fistula/Graft , CABG (05/2010), Stent (s/p cardiac cath with stent placement). No: None, AAA Repair, AICD, Appendectomy, Arthrosocopy, Bariatric Surgery, Breast Biopsy, Bypass, Carotid Endarterectomy, Cataract Removal, Cholecystectomy, Colectomy, Colonoscopy, Colostomy, Craniotomy, , Cystectomy, Hernia Repair, Hysterectomy, Ileal Conduit, Ileosotomy, Joint Replacement, Kidney Transplant, Laminectomy, Liver Transplant, Mastectomy, Nephrectomy, Oopherectomy, Orchiectomy, Permanent Pacemaker, Prostatectomy, Splenectomy, Thoracotomy, TURP , Tonsillectomy, Tubal Ligation, Upper Endoscopy, Valve Replacement, Vasectomy, Vein Stripping/Ligation - Alcohol/Substance Use Hx Alcohol Use: No History of Substance Use: reports: None - Smoking History Smoking history: Never smoked Have you smoked in the past 12 months: No Aproximately how many cigarettes per day: 2 If you are a former smoker, when did you quit?: 1989 - Social History Usual Living Arrangement: With Spouse ADL: Independent 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 History of Recent Travel: No Home Medications - Allergies Allergies/Adverse Reactions: Allergies Allergy/AdvReac Type Severity Reaction Status Date / Time No Known Drug Allergies Allergy Verified 11/28/16 17:10 - Home Medications Home Medications: Ambulatory Orders Allopurinol [Zyloprim -] 100 mg PO DAILY 11/28/16 Atorvastatin Ca [Lipitor] 80 mg PO HS 11/28/16 Azithromycin 500 mg PO DAILY 11/28/16 Cinacalcet HCl [Sensipar] 30 mg PO DAILY 11/28/16 Ferrous Sulfate 325 mg PO DAILY 11/28/16 Furosemide [Lasix] 80 mg PO DAILY 11/28/16 Furosemide [Lasix] 80 mg PO DAILY 11/28/16 Hydralazine HCl 50 mg PO DAILY 11/28/16 Lisinopril 5 mg PO DAILY 11/28/16 Magnesium Oxide [Mag-Ox -] 400 mg PO TID 11/28/16 Nitroglycerin 0.4 mg SL DAILY [facility] 11/28/16 Omeprazole 20 mg PO DAILY 11/28/16 Sevelamer Carbonate [Renvela] 800 mg NR TID 11/28/16 Family Disease History - Family Disease History Family Disease History: Diabetes: Father, Mother, Other: Father, Mother Physical Exam Vital Signs: Vital Signs Temperature 99.2 F 12/01/16 13:49 Pulse Rate 101 H 12/01/16 13:49 Respiratory Rate 20 12/01/16 13:49 Blood Pressure 140/74 12/01/16 13:49 O2 Sat by Pulse Oximetry (%) 97 12/01/16 09:00 Constitutional: Yes: No Distress Extremities: Yes: Other (Left foot small ulcer under 5th metatarsal. Hemorrhagic blister on medial foot.) Edema: LLE: 1+, RLE: 1+ Labs: CBC, BMP 11/30/16 07:35 12/01/16 07:40 Problem List - Problems (1) Open wound of left foot Assessment/Plan: TMA wound is clean and dry. New blister may be sign of occult osteomyelitis. Blister drained for 5 cc of bloody fluid. C+S sent. Code(s): S91.302A - UNSPECIFIED OPEN WOUND, LEFT FOOT, INITIAL ENCOUNTER Qualifiers: Encounter type: subsequent encounter Qualified Code(s): S91.302D - Unspecified open wound, left foot, subsequent encounter; S91.302D - Unspecified open wound, left foot, subsequent encounter
--- NOTE | 2016-12-01 18:52 | PN ---
Progress Note, Physician History of Present Illness: patient still spiking low grade fevers seen by vascular drained the blister by vascular - Current Medication List Current Medications: Active Medications Acetaminophen (Tylenol -) 650 mg PO Q4H PRN PRN Reason: FEVER OR PAIN Last Admin: 12/01/16 12:28 Dose: 650 mg Acetaminophen (Tylenol -) 650 mg PO Q6H PRN PRN Reason: FEVER OR PAIN Allopurinol (Zyloprim -) 100 mg PO DAILY [facility] Last Admin: 12/01/16 09:32 Dose: 100 mg Atorvastatin Calcium (Lipitor -) 80 mg PO HS [facility] Last Admin: 11/30/16 21:34 Dose: 80 mg Cinacalcet (Sensipar -) 30 mg PO DAILY [facility] Last Admin: 12/01/16 09:31 Dose: 30 mg Epoetin Lauri (Epogen -) 10,000 units IVPUSH ONCE ONE Stop: 12/02/16 06:01 Furosemide (Lasix -) 80 mg PO DAILY [facility] Last Admin: 12/01/16 09:31 Dose: 80 mg Hydralazine HCl (Apresoline -) 25 mg PO BID [facility] Last Admin: 12/01/16 09:32 Dose: 25 mg Vancomycin HCl 1,000 mg/ (Dextrose) 250 mls @ 250 mls/hr IVPB TuThSa [facility] PRN Reason: Protocol Piperacillin Sod/Tazobactam (Sod 2.25 gm/ Dextrose) 50 mls @ 100 mls/hr IVPB Q8H-IV [facility] PRN Reason: Protocol Last Admin: 12/01/16 17:10 Dose: 100 mls/hr Insulin Aspart (Novolog Vial Sliding Scale -) 1 vial SQ BIDAC [facility] PRN Reason: Protocol Last Admin: 12/01/16 17:08 Dose: 4 units Insulin Detemir (Levemir Vial) 15 units SQ HS [facility] Last Admin: 11/30/16 21:33 Dose: 15 units Lisinopril (Prinivil) 5 mg PO DAILY [facility] Last Admin: 12/01/16 09:32 Dose: 5 mg Magnesium Oxide (Mag-Ox -) 400 mg PO TID [facility] Last Admin: 12/01/16 13:45 Dose: 400 mg Mupirocin (Bactroban 2% Ointment -) 1 applic TP BID [facility] Nitroglycerin (Nitrostat -) 0.4 mg SL Q5M PRN PRN Reason: FOR CHEST PAIN Oxycodone HCl (Roxicodone -) 10 mg PO Q4H PRN Last Admin: 12/01/16 12:29 Dose: 10 mg Pantoprazole Sodium (Protonix -) 20 mg PO BID [facility] Last Admin: 12/01/16 09:32 Dose: 20 mg Sevelamer Carbonate (Renvela -) 800 mg PO TIDCM [facility] Last Admin: 12/01/16 17:09 Dose: 800 mg - Objective Vital Signs: Vital Signs Temperature 99.2 F 12/01/16 13:49 Pulse Rate 101 H 12/01/16 13:49 Respiratory Rate 20 12/01/16 13:49 Blood Pressure 140/74 12/01/16 13:49 O2 Sat by Pulse Oximetry (%) 97 12/01/16 09:00 Constitutional: Yes: No Distress, Calm Cardiovascular: Yes: Regular Rate and Rhythm Respiratory: Yes: Regular, CTA Bilaterally Gastrointestinal: Yes: Normal Bowel Sounds, Soft Musculoskeletal: Yes: WNL Extremities: Yes: Other Wound/Incision: Yes: Dressing Dry and Intact Neurological: Yes: Alert, Oriented Psychiatric: Yes: Alert, Oriented Labs: CBC, BMP 11/30/16 07:35 12/01/16 07:40 Assessment/Plan [facility] List - Problems (1) DM (diabetes mellitus), type 2 with renal complications Code(s): E11.29 - TYPE 2 DIABETES MELLITUS W OTH DIABETIC KIDNEY COMPLICATION Qualifiers: Diabetes mellitus complication detail: with chronic kidney disease Chronic kidney disease stage: on chronic dialysis (2) ESRD (end stage renal disease) on dialysis Code(s): N18.6 - END STAGE RENAL DISEASE Z99.2 - DEPENDENCE ON RENAL DIALYSIS (3) Hypertension Code(s): I10 - ESSENTIAL (PRIMARY) HYPERTENSION Qualifiers: Hypertension type: essential hypertension Qualified Code(s): I10 - Essential (primary) hypertension; I10 - Essential (primary) hypertension; I10 - Essential (primary) hypertension (4) Wound infection Code(s): T14.8 - OTHER INJURY OF UNSPECIFIED BODY REGION * DO NOT USE * L08.9 - LOCAL INFECTION OF THE SKIN AND SUBCUTANEOUS TISSUE, UNSP (5) Fever Code(s): R50.9 - FEVER, UNSPECIFIED plan continue abx will await mri result continue as per nephro and primary
[2016-12-01] MEDS: ATORVASTATIN CA 80 MG TABLET (FP) PO SCH (22:01)
[2016-12-01] MEDS: INSULIN DETEMIR 100 UNITS/ML MDV SQ SCH (22:08)
[2016-12-02] MEDS ORDERED: PIPERACILLIN/TAZOBACTAM 2.25 GM VIAL IVPB ONE ×3 (02:02→18:06)
[2016-12-02] MEDS ORDERED: DEXTROSE 5%-WATER - 50 ML IVPB ONE ×3 (02:02→18:06)
[2016-12-02] MEDS: PIPERACILLIN/TAZOB 2.25 GM 2.25 GM in DEXTROSE 5%-WATER - 50 ML IVPB SCH ×3 (02:06→18:07)
[2016-12-02] MEDS: MAGNESIUM OXIDE 400 MG TABLET (FP) PO SCH ×3 (05:48→21:39)
[2016-12-02] MEDS: INSULIN SLIDING SCALE (NOVOLOG) 1 VIAL SQ SCH ×4 (06:26→17:10)
[2016-12-02] MEDS: MUPIROCIN 2% TOPICAL OINTMENT 22 GM TUBE TP SCH ×2 (06:27→16:13)
[2016-12-02] MEDS: ACETAMINOPHEN 325 MG TABLET (FP) PO PRN ×3 (08:41→22:09)
[2016-12-02] MEDS: oxyCODONE HCL 5 MG TABLET PO PRN ×3 (08:41→22:11)
[2016-12-02] MEDS ORDERED: EPOETIN ALFA 10,000 UNIT/1 ML VIAL IVPUSH ONE (08:45)
[2016-12-02] MEDS: SEVELAMER CARBONATE 800 MG TAB (FP) PO SCH ×3 (09:49→17:19)
[2016-12-02 10:21] LABS: MCH 30.4 pg (25.7-33.7); MCHC 32.9 g/dl (32.0-35.9); MEAN CELL VOLUME 92.4 fl (80-96); MEAN PLT VOLUME 7.9 fl (7.5-11.1); PLATELET COUNT 308 K/MM3 (134-434); RDW 15.3 % (11.9-15.9); WHITE BLOOD COUNT 9.5 K/mm3 (4.0-10.0)
[2016-12-02 10:51] LABS: ANION GAP 14 (8-16); CO2 24 mmol/L (21-32); GLUCOSE,RANDOM 152 mg/dL (74-106); PHOSPHOROUS 5.1 mg/dL (2.5-4.9)
[2016-12-02 11:15] LABS: CREATININE 9.6 mg/dL (0.7-1.3)
[2016-12-02] MEDS: VANCOMYCIN 1,000 MG in DEXTROSE 5%-WATER - 250 ML IVPB SCH (12:09)
[2016-12-02] MEDS ORDERED: PT OWN MED DRAWER 7, Y5N ONE (13:49)
--- NOTE | 2016-12-02 13:50 | PN ---
Progress Note, Physician History of Present Illness: patient stable no new issues - Current Medication List Current Medications: Active Medications Acetaminophen (Tylenol -) 650 mg PO Q4H PRN PRN Reason: FEVER OR PAIN Last Admin: 12/02/16 08:41 Dose: 650 mg Acetaminophen (Tylenol -) 650 mg PO Q6H PRN PRN Reason: FEVER OR PAIN Allopurinol (Zyloprim -) 100 mg PO DAILY [facility] Last Admin: 12/01/16 09:32 Dose: 100 mg Atorvastatin Calcium (Lipitor -) 80 mg PO HS [facility] Last Admin: 12/01/16 22:01 Dose: 80 mg Cinacalcet (Sensipar -) 30 mg PO DAILY [facility] Last Admin: 12/01/16 09:31 Dose: 30 mg Furosemide (Lasix -) 80 mg PO DAILY [facility] Last Admin: 12/01/16 09:31 Dose: 80 mg Hydralazine HCl (Apresoline -) 25 mg PO BID [facility] Last Admin: 12/01/16 22:01 Dose: 25 mg Vancomycin HCl 1,000 mg/ (Dextrose) 250 mls @ 250 mls/hr IVPB TuThSa [facility] PRN Reason: Protocol Last Admin: 12/02/16 12:09 Dose: 250 mls/hr Piperacillin Sod/Tazobactam (Sod 2.25 gm/ Dextrose) 50 mls @ 100 mls/hr IVPB Q8H-IV [facility] PRN Reason: Protocol Last Admin: 12/02/16 02:06 Dose: 100 mls/hr Insulin Aspart (Novolog Vial Sliding Scale -) 1 vial SQ BIDAC [facility] PRN Reason: Protocol Last Admin: 12/02/16 07:44 Dose: Not Given Insulin Detemir (Levemir Vial) 15 units SQ [facility] Last Admin: 12/01/16 22:08 Dose: 15 units Lisinopril (Prinivil) 5 mg PO DAILY [facility] Last Admin: 12/01/16 09:32 Dose: 5 mg Magnesium Oxide (Mag-Ox -) 400 mg PO TID [facility] Last Admin: 12/02/16 05:48 Dose: 400 mg Mupirocin (Bactroban 2% Ointment -) 1 applic TP BID [facility] Last Admin: 12/02/16 06:27 Dose: Not Given Nitroglycerin (Nitrostat -) 0.4 mg SL Q5M PRN PRN Reason: FOR CHEST PAIN Oxycodone HCl (Roxicodone -) 10 mg PO Q4H PRN Last Admin: 12/02/16 08:41 Dose: 10 mg Pantoprazole Sodium (Protonix -) 20 mg PO BID [facility] Last Admin: 12/01/16 22:01 Dose: 20 mg Sevelamer Carbonate (Renvela -) 800 mg PO TIDCM [facility] Last Admin: 12/02/16 09:49 Dose: Not Given - Objective Vital Signs: Vital Signs Temperature 98.0 F 12/02/16 06:57 Pulse Rate 97 H 12/02/16 13:15 Respiratory Rate 18 12/02/16 13:15 Blood Pressure 153/92 12/02/16 13:15 O2 Sat by Pulse Oximetry (%) 97 12/01/16 09:00 Constitutional: Yes: No Distress, Calm Cardiovascular: Yes: Regular Rate and Rhythm Respiratory: Yes: Regular, CTA Bilaterally Gastrointestinal: Yes: Normal Bowel Sounds, Soft Musculoskeletal: Yes: Other Extremities: Yes: Other Wound/Incision: Yes: Dressing Dry and Intact, Other (cellulitits resolving) Neurological: Yes: Alert, Oriented Psychiatric: Yes: Alert, Oriented Labs: CBC, BMP 12/02/16 09:10 12/02/16 09:10 - ....Imaging MRI: Report Reviewed, Image Reviewed Assessment/Plan [facility] List - Problems (1) DM (diabetes mellitus), type 2 with renal complications Code(s): E11.29 - TYPE 2 DIABETES MELLITUS W OTH DIABETIC KIDNEY COMPLICATION Qualifiers: Diabetes mellitus complication detail: with chronic kidney disease Chronic kidney disease stage: on chronic dialysis (2) ESRD (end stage renal disease) on dialysis Code(s): N18.6 - END STAGE RENAL DISEASE Z99.2 - DEPENDENCE ON RENAL DIALYSIS (3) Hypertension Code(s): I10 - ESSENTIAL (PRIMARY) HYPERTENSION Qualifiers: Hypertension type: essential hypertension Qualified Code(s): I10 - Essential (primary) hypertension; I10 - Essential (primary) hypertension; I10 - Essential (primary) hypertension (4) Wound infection Code(s): T14.8 - OTHER INJURY OF UNSPECIFIED BODY REGION * DO NOT USE * L08.9 - LOCAL INFECTION OF THE SKIN AND SUBCUTANEOUS TISSUE, UNSP (5) Fever Code(s): R50.9 - FEVER, UNSPECIFIED 6 osteo of the lt foot plan continue abx mri result noted await for wound cx once we have all those we will form a regimen will need treatment for 6 weeks
[2016-12-02] MEDS: PANTOPRAZOLE 20 MG TABLET (FP) PO SCH ×2 (13:53→21:39)
[2016-12-02] MEDS: FUROSEMIDE 40 MG TABLET (FP) PO SCH (13:53)
[2016-12-02] MEDS: LISINOPRIL 5 MG TABLET (FP) PO SCH (13:53)
[2016-12-02] MEDS: ALLOPURINOL 100 MG TABLET (FP) PO SCH (13:54)
[2016-12-02] MEDS: hydrALAZINE HCL 25 MG TABLET (FP) PO SCH ×2 (13:54→21:41)
[2016-12-02] MEDS: CINACALCET HCL 30 MG TAB (FP) PO SCH (13:54)
[2016-12-02] MEDS ORDERED: INSULIN (NOVOLOG) ASPART 100 UNITS/ML 10ML VIAL ONE (17:08)
--- NOTE | 2016-12-02 17:11 | PN ---
Progress Note (short form) - Note Progress Note: Renal Follow up for ESRD on HD Pt seen and examined during dialysis earlier today BP stable, AVF with flow at goal pressures are WNL Goal UF is 2.5L pt without complaints Vital Signs Temperature 98.6 F 12/02/16 14:15 Pulse Rate 103 H 12/02/16 14:15 Respiratory Rate 20 12/02/16 14:27 Blood Pressure 155/80 12/02/16 14:15 O2 Sat by Pulse Oximetry (%) 97 12/02/16 14:27 Intake & Output 11/29/16 11/30/16 12/01/16 12/02/16 23:59 23:59 23:59 23:59 Intake Total 1850 1050 700 600 Output Total 400 0 Balance 1850 650 700 600 Weight 203 lb 9.6 oz 203 lb 4.8 oz 204 lb 6 oz 206 lb 4 oz NAD RRR, No M/R CTA, no rales soft, obese, NT/ND left foot in dressing, trace edema left leg CBC, BMP 12/02/16 09:10 12/02/16 09:10 Current Medications Acetaminophen (Tylenol -) 650 mg PO Q4H PRN PRN Reason: FEVER OR PAIN Last Admin: 12/02/16 16:13 Dose: 650 mg Acetaminophen (Tylenol -) 650 mg PO Q6H PRN PRN Reason: FEVER OR PAIN Allopurinol (Zyloprim -) 100 mg PO DAILY [facility] Last Admin: 12/02/16 13:54 Dose: 100 mg Atorvastatin Calcium (Lipitor -) 80 mg PO HS [facility] Last Admin: 12/01/16 22:01 Dose: 80 mg Cinacalcet (Sensipar -) 30 mg PO DAILY [facility] Last Admin: 12/02/16 13:54 Dose: 30 mg Furosemide (Lasix -) 80 mg PO DAILY [facility] Last Admin: 12/02/16 13:53 Dose: 80 mg Hydralazine HCl (Apresoline -) 25 mg PO BID [facility] Last Admin: 12/02/16 13:54 Dose: 25 mg Vancomycin HCl 1,000 mg/ (Dextrose) 250 mls @ 250 mls/hr IVPB TuThSa [facility] PRN Reason: Protocol Last Admin: 12/02/16 12:09 Dose: 250 mls/hr Piperacillin Sod/Tazobactam (Sod 2.25 gm/ Dextrose) 50 mls @ 100 mls/hr IVPB Q8H-IV [facility] PRN Reason: Protocol Last Admin: 12/02/16 13:54 Dose: 100 mls/hr Insulin Aspart (Novolog Vial Sliding Scale -) 1 vial SQ BIDAC [facility] PRN Reason: Protocol Last Admin: 12/02/16 07:44 Dose: Not Given Insulin Detemir (Levemir Vial) 15 units SQ HS [facility] Last Admin: 12/01/16 22:08 Dose: 15 units Lisinopril (Prinivil) 5 mg PO DAILY [facility] Last Admin: 12/02/16 13:53 Dose: 5 mg Magnesium Oxide (Mag-Ox -) 400 mg PO TID [facility] Last Admin: 12/02/16 13:53 Dose: 400 mg Mupirocin (Bactroban 2% Ointment -) 1 applic TP BID [facility] Last Admin: 12/02/16 16:13 Dose: 1 applic Nitroglycerin (Nitrostat -) 0.4 mg SL Q5M PRN PRN Reason: FOR CHEST PAIN Oxycodone HCl (Roxicodone -) 10 mg PO Q4H PRN Last Admin: 12/02/16 16:13 Dose: 10 mg Pantoprazole Sodium (Protonix -) 20 mg PO BID [facility] Last Admin: 12/02/16 13:53 Dose: 20 mg Sevelamer Carbonate (Renvela -) 800 mg PO TIDCM [facility] Last Admin: 12/02/16 13:54 Dose: 800 mg 51 year old Gentleman with PMhx of ESRD on HD (TTS at [facility]), Hypertension, CAD, PVD, DM2, Hx of paraspinal abcess who presented with complaints of fever and TMA stump pain. #ESRD on HD Pt tolerating dialysis well today will maintain on TTS schedule as a inpatient dose all meds for intermittent HD #Suspected Wound Infection/Fever MRI suggestive of osteomylitis continue Vanco with HD #Hypertension Continue Lisinpril and Hydralzine Goal BP < 140/90 hold antihypertensives before dialysis #CKD related Anemia Continue Epogen with HD Goal Hgb > 10 #Renal Osteodystrophy Trend PHos and ca levels continue sensipar and renvela Thank you Will follow Antwan Hurley DO Problem List - Problems (1) DM (diabetes mellitus), type 2 with renal complications Code(s): E11.29 - TYPE 2 DIABETES MELLITUS W OTH DIABETIC KIDNEY COMPLICATION Qualifiers: Diabetes mellitus complication detail: with chronic kidney disease Chronic kidney disease stage: on chronic dialysis (2) ESRD (end stage renal disease) on dialysis Code(s): N18.6 - END STAGE RENAL DISEASE Z99.2 - DEPENDENCE ON RENAL DIALYSIS (3) Hypertension Code(s): I10 - ESSENTIAL (PRIMARY) HYPERTENSION Qualifiers: Hypertension type: essential hypertension Qualified Code(s): I10 - Essential (primary) hypertension; I10 - Essential (primary) hypertension; I10 - Essential (primary) hypertension (4) Wound infection Code(s): T14.8 - OTHER INJURY OF UNSPECIFIED BODY REGION * DO NOT USE * L08.9 - LOCAL INFECTION OF THE SKIN AND SUBCUTANEOUS TISSUE, UNSP (5) Fever Code(s): R50.9 - FEVER, UNSPECIFIED
[2016-12-02] MEDS: ATORVASTATIN CA 80 MG TABLET (FP) PO SCH (21:38)
[2016-12-02] MEDS: INSULIN DETEMIR 100 UNITS/ML MDV SQ SCH (21:39)
--- NOTE | 2016-12-02 23:47 | PN ---
Progress Note, Physician Chief Complaint: Pt had MRI History of Present Illness: Pt is having Low grade fever/MRI No SOB NO Chest pain No Abd pain No GI bleeding - Current Medication List Current Medications: Active Medications Acetaminophen (Tylenol -) 650 mg PO Q4H PRN PRN Reason: FEVER OR PAIN Last Admin: 12/02/16 22:09 Dose: 650 mg Acetaminophen (Tylenol -) 650 mg PO Q6H PRN PRN Reason: FEVER OR PAIN Allopurinol (Zyloprim -) 100 mg PO DAILY [facility] Last Admin: 12/02/16 13:54 Dose: 100 mg Atorvastatin Calcium (Lipitor -) 80 mg PO HS [facility] Last Admin: 12/02/16 21:38 Dose: 80 mg Cinacalcet (Sensipar -) 30 mg PO DAILY [facility] Last Admin: 12/02/16 13:54 Dose: 30 mg Furosemide (Lasix -) 80 mg PO DAILY [facility] Last Admin: 12/02/16 13:53 Dose: 80 mg Hydralazine HCl (Apresoline -) 25 mg PO BID [facility] Last Admin: 12/02/16 21:41 Dose: 25 mg Vancomycin HCl 1,000 mg/ (Dextrose) 250 mls @ 250 mls/hr IVPB TuThSa [facility] PRN Reason: Protocol Last Admin: 12/02/16 12:09 Dose: 250 mls/hr Piperacillin Sod/Tazobactam (Sod 2.25 gm/ Dextrose) 50 mls @ 100 mls/hr IVPB Q8H-IV [facility] PRN Reason: Protocol Last Admin: 12/02/16 18:07 Dose: 100 mls/hr Insulin Aspart (Novolog Vial Sliding Scale -) 1 vial SQ BIDAC [facility] PRN Reason: Protocol Last Admin: 12/02/16 17:10 Dose: 8 units Insulin Detemir (Levemir Vial) 15 units SQ HS [facility] Last Admin: 12/02/16 21:39 Dose: 15 units Lisinopril (Prinivil) 5 mg PO DAILY [facility] Last Admin: 12/02/16 13:53 Dose: 5 mg Magnesium Oxide (Mag-Ox -) 400 mg PO TID [facility] Last Admin: 12/02/16 21:39 Dose: 400 mg Mupirocin (Bactroban 2% Ointment -) 1 applic TP BID [facility] Last Admin: 12/02/16 16:13 Dose: 1 applic Nitroglycerin (Nitrostat -) 0.4 mg SL Q5M PRN PRN Reason: FOR CHEST PAIN Oxycodone HCl (Roxicodone -) 10 mg PO Q4H PRN Last Admin: 12/02/16 22:11 Dose: 10 mg Pantoprazole Sodium (Protonix -) 20 mg PO BID [facility] Last Admin: 12/02/16 21:39 Dose: 20 mg Sevelamer Carbonate (Renvela -) 800 mg PO TIDCM [facility] Last Admin: 12/02/16 17:19 Dose: 800 mg - Objective Vital Signs: Vital Signs Temperature 99.5 F 12/02/16 18:52 Pulse Rate 106 H 12/02/16 18:52 Respiratory Rate 20 12/02/16 18:52 Blood Pressure 149/72 12/02/16 18:52 O2 Sat by Pulse Oximetry (%) 97 12/02/16 14:27 Constitutional: Yes: No Distress Eyes: Yes: Conjunctiva Clear HENT: Yes: Atraumatic, Normocephalic Neck: Yes: Supple, Trachea Midline Cardiovascular: Yes: Regular Rate and Rhythm, S1, S2 Respiratory: Yes: Regular, CTA Bilaterally Gastrointestinal: Yes: Normal Bowel Sounds, Soft Labs: CBC, BMP 12/02/16 09:10 12/02/16 22:30 Problem List - Problems (1) Fever Code(s): R50.9 - FEVER, UNSPECIFIED (2) ESRD (end stage renal disease) on dialysis Code(s): N18.6 - END STAGE RENAL DISEASE Z99.2 - DEPENDENCE ON RENAL DIALYSIS (3) Systolic and diastolic CHF, chronic Code(s): I50.42 - CHRONIC COMBINED SYSTOLIC AND DIASTOLIC HRT FAIL (4) Anemia in ESRD (end-stage renal disease) Code(s): N18.6 - END STAGE RENAL DISEASE D63.1 - ANEMIA IN CHRONIC KIDNEY DISEASE (5) Diabetes mellitus Code(s): E11.9 - TYPE 2 DIABETES MELLITUS WITHOUT COMPLICATIONS Qualifiers: Diabetes mellitus type: type 2 Diabetes mellitus complication status: with kidney complications Diabetes mellitus complication detail: with chronic kidney disease (6) Posterior neck pain Code(s): M54.2 - CERVICALGIA (7) Sepsis Code(s): A41.9 - SEPSIS, UNSPECIFIED ORGANISM Qualifiers: Sepsis type: sepsis due to unspecified organism Qualified Code(s): A41.9 - Sepsis, unspecified organism; A41.9 - Sepsis, unspecified organism; A41.9 - Sepsis, unspecified organism (8) Elevated cholesterol Code(s): E78.0 - PURE HYPERCHOLESTEROLEMIA * DO NOT USE * (9) HTN (hypertension), malignant Code(s): I10 - ESSENTIAL (PRIMARY) HYPERTENSION (10) 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A Assessment/Plan (1) Fever Code(s): R50.9 - FEVER, UNSPECIFIED (2) ESRD (end stage renal disease) on dialysis Code(s): N18.6 - END STAGE RENAL DISEASE Z99.2 - DEPENDENCE ON RENAL DIALYSIS (3) Systolic and diastolic CHF, chronic Code(s): I50.42 - CHRONIC COMBINED SYSTOLIC AND DIASTOLIC HRT FAIL (4) Anemia in ESRD (end-stage renal disease) Code(s): N18.6 - END STAGE RENAL DISEASE D63.1 - ANEMIA IN CHRONIC KIDNEY DISEASE (5) Diabetes mellitus Code(s): E11.9 - TYPE 2 DIABETES MELLITUS WITHOUT COMPLICATIONS Qualifiers: Diabetes mellitus type: type 2 Diabetes mellitus complication status: with kidney complications Diabetes mellitus complication detail: with chronic kidney disease (6) Posterior neck pain Code(s): M54.2 - CERVICALGIA (7) Sepsis Code(s): A41.9 - SEPSIS, UNSPECIFIED ORGANISM Qualifiers: Sepsis type: sepsis due to unspecified organism Qualified Code(s): A41.9 - Sepsis, unspecified organism; A41.9 - Sepsis, unspecified organism; A41.9 - Sepsis, unspecified organism (8) Elevated cholesterol Code(s): E78.0 - PURE HYPERCHOLESTEROLEMIA * DO NOT USE * (9) HTN (hypertension), malignant Code(s): I10 - ESSENTIAL (PRIMARY) HYPERTENSION (10) 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 11) Osteomyelitis Lt Foot On MRI Pt will have MRI PT seen by vascular Dr Rose Kennedy
[2016-12-03] MEDS ORDERED: INSULIN (NOVOLOG) ASPART 100 UNITS/ML 10ML VIAL SQ ONE (01:30)
[2016-12-03] MEDS: MUPIROCIN 2% TOPICAL OINTMENT 22 GM TUBE TP SCH ×3 (01:36→22:06)
[2016-12-03] MEDS ORDERED: PIPERACILLIN/TAZOBACTAM 2.25 GM VIAL IVPB ONE ×2 (01:50→10:07)
[2016-12-03] MEDS ORDERED: DEXTROSE 5%-WATER - 50 ML IVPB ONE ×2 (01:50→10:07)
[2016-12-03] MEDS: PIPERACILLIN/TAZOB 2.25 GM 2.25 GM in DEXTROSE 5%-WATER - 50 ML IVPB SCH ×2 (02:24→10:20)
[2016-12-03] MEDS: INSULIN SLIDING SCALE (NOVOLOG) 1 VIAL SQ SCH ×2 (06:26→16:18)
[2016-12-03] MEDS: MAGNESIUM OXIDE 400 MG TABLET (FP) PO SCH ×3 (06:26→22:05)
[2016-12-03] MEDS: SEVELAMER CARBONATE 800 MG TAB (FP) PO SCH ×3 (08:07→17:13)
--- NOTE | 2016-12-03 08:44 | PN ---
Progress Note (short form) - Note Progress Note: VSS Less pain Blister flat Culture pending MRI equivocal result - could be osteomyelitis Decision re: skilled nursing Abx as per ID consult Problem List - Problems (1) Open wound of left foot Code(s): S91.302A - UNSPECIFIED OPEN WOUND, LEFT FOOT, INITIAL ENCOUNTER Qualifiers: Encounter type: subsequent encounter Qualified Code(s): S91.302D - Unspecified open wound, left foot, subsequent encounter; S91.302D - Unspecified open wound, left foot, subsequent encounter
[2016-12-03] MEDS ORDERED: PT OWN MED DRAWER 7, Y5N ONE (10:07)
[2016-12-03] MEDS: CINACALCET HCL 30 MG TAB (FP) PO SCH (10:19)
[2016-12-03] MEDS: hydrALAZINE HCL 25 MG TABLET (FP) PO SCH ×2 (10:19→22:05)
[2016-12-03] MEDS: PANTOPRAZOLE 20 MG TABLET (FP) PO SCH ×2 (10:19→22:05)
[2016-12-03] MEDS: ALLOPURINOL 100 MG TABLET (FP) PO SCH (10:19)
[2016-12-03] MEDS: FUROSEMIDE 40 MG TABLET (FP) PO SCH (10:19)
[2016-12-03] MEDS: LISINOPRIL 5 MG TABLET (FP) PO SCH (10:19)
--- NOTE | 2016-12-03 12:54 | PN ---
Progress Note (short form) - Note Progress Note: Renal Follow up for ESRD on HD Pt seen and examined at the bedside no acute complaints s/p dialysis yesterday Vital Signs Temperature 98.4 F 12/03/16 06:10 Pulse Rate 87 12/03/16 06:10 Respiratory Rate 20 12/03/16 09:00 Blood Pressure 135/75 12/03/16 06:10 O2 Sat by Pulse Oximetry (%) 96 12/03/16 09:00 Intake & Output 11/30/16 12/01/16 12/02/16 12/03/16 23:59 23:59 23:59 23:59 Intake Total 7245 862 8889 50 Output Total 400 0 Balance 714 486 3786 50 Weight 203 lb 4.8 oz 204 lb 6 oz 206 lb 4 oz 210 lb 5 oz NAD RRR, No M/R CTA, no rales soft, obese, NT/ND left foot in dressing, trace edema left leg CBC, BMP 12/02/16 09:10 12/02/16 22:30 Current Medications Acetaminophen (Tylenol -) 650 mg PO Q4H PRN PRN Reason: FEVER OR PAIN Last Admin: 12/02/16 22:09 Dose: 650 mg Acetaminophen (Tylenol -) 650 mg PO Q6H PRN PRN Reason: FEVER OR PAIN Allopurinol (Zyloprim -) 100 mg PO DAILY [facility] Last Admin: 12/03/16 10:19 Dose: 100 mg Atorvastatin Calcium (Lipitor -) 80 mg PO HS [facility] Last Admin: 12/02/16 21:38 Dose: 80 mg Cinacalcet (Sensipar -) 30 mg PO DAILY [facility] Last Admin: 12/03/16 10:19 Dose: 30 mg Furosemide (Lasix -) 80 mg PO DAILY [facility] Last Admin: 12/03/16 10:19 Dose: 80 mg Hydralazine HCl (Apresoline -) 25 mg PO BID [facility] Last Admin: 12/03/16 10:19 Dose: 25 mg Vancomycin HCl 1,000 mg/ (Dextrose) 250 mls @ 250 mls/hr IVPB TuThSa [facility] PRN Reason: Protocol Last Admin: 12/02/16 12:09 Dose: 250 mls/hr Piperacillin Sod/Tazobactam (Sod 2.25 gm/ Dextrose) 50 mls @ 100 mls/hr IVPB Q8H-IV [facility] PRN Reason: Protocol Last Admin: 12/03/16 10:20 Dose: 100 mls/hr Insulin Aspart (Novolog Vial Sliding Scale -) 1 vial SQ BIDAC [facility] PRN Reason: Protocol Last Admin: 12/03/16 06:26 Dose: 4 units Insulin Detemir (Levemir Vial) 15 units SQ HS [facility] Last Admin: 12/02/16 21:39 Dose: 15 units Lisinopril (Prinivil) 5 mg PO DAILY [facility] Last Admin: 12/03/16 10:19 Dose: 5 mg Magnesium Oxide (Mag-Ox -) 400 mg PO TID [facility] Last Admin: 12/03/16 06:26 Dose: 400 mg Mupirocin (Bactroban 2% Ointment -) 1 applic TP BID [facility] Last Admin: 12/03/16 10:24 Dose: 1 applic Nitroglycerin (Nitrostat -) 0.4 mg SL Q5M PRN PRN Reason: FOR CHEST PAIN Oxycodone HCl (Roxicodone -) 10 mg PO Q4H PRN Last Admin: 12/02/16 22:11 Dose: 10 mg Pantoprazole Sodium (Protonix -) 20 mg PO BID [facility] Last Admin: 12/03/16 10:19 Dose: 20 mg Sevelamer Carbonate (Renvela -) 800 mg PO TIDCM [facility] Last Admin: 12/03/16 11:53 Dose: 800 mg 51 year old Gentleman with PMhx of ESRD on HD (TTS at [facility]), Hypertension, CAD, PVD, DM2, Hx of paraspinal abcess who presented with complaints of fever and TMA stump pain. #ESRD on HD no acute indication for dialysis today next treatment tomorrow #Suspected Wound Infection/Fever MRI suggestive of osteomylitis continue Vanco with HD #Hypertension Continue Lisinpril and Hydralzine Goal BP < 140/90 hold antihypertensives before dialysis #CKD related Anemia Continue Epogen with HD Goal Hgb > 10 #Renal Osteodystrophy Trend PHos and ca levels continue sensipar and renvela Antwan Hurley DO Problem List - Problems (1) DM (diabetes mellitus), type 2 with renal complications Code(s): E11.29 - TYPE 2 DIABETES MELLITUS W OTH DIABETIC KIDNEY COMPLICATION Qualifiers: Diabetes mellitus complication detail: with chronic kidney disease Chronic kidney disease stage: on chronic dialysis (2) ESRD (end stage renal disease) on dialysis Code(s): N18.6 - END STAGE RENAL DISEASE Z99.2 - DEPENDENCE ON RENAL DIALYSIS (3) Hypertension Code(s): I10 - ESSENTIAL (PRIMARY) HYPERTENSION Qualifiers: Hypertension type: essential hypertension Qualified Code(s): I10 - Essential (primary) hypertension; I10 - Essential (primary) hypertension; I10 - Essential (primary) hypertension (4) Wound infection Code(s): T14.8 - OTHER INJURY OF UNSPECIFIED BODY REGION * DO NOT USE * L08.9 - LOCAL INFECTION OF THE SKIN AND SUBCUTANEOUS TISSUE, UNSP (5) Fever Code(s): R50.9 - FEVER, UNSPECIFIED
--- NOTE | 2016-12-03 13:57 | PN ---
Progress Note, Physician History of Present Illness: patient stable no new issues - Current Medication List Current Medications: Active Medications Acetaminophen (Tylenol -) 650 mg PO Q4H PRN PRN Reason: FEVER OR PAIN Last Admin: 12/02/16 22:09 Dose: 650 mg Acetaminophen (Tylenol -) 650 mg PO Q6H PRN PRN Reason: FEVER OR PAIN Allopurinol (Zyloprim -) 100 mg PO DAILY [facility] Last Admin: 12/03/16 10:19 Dose: 100 mg Atorvastatin Calcium (Lipitor -) 80 mg PO HS [facility] Last Admin: 12/02/16 21:38 Dose: 80 mg Cinacalcet (Sensipar -) 30 mg PO DAILY [facility] Last Admin: 12/03/16 10:19 Dose: 30 mg Furosemide (Lasix -) 80 mg PO DAILY [facility] Last Admin: 12/03/16 10:19 Dose: 80 mg Hydralazine HCl (Apresoline -) 25 mg PO BID [facility] Last Admin: 12/03/16 10:19 Dose: 25 mg Vancomycin HCl 1,000 mg/ (Dextrose) 250 mls @ 250 mls/hr IVPB TuThSa [facility] PRN Reason: Protocol Last Admin: 12/02/16 12:09 Dose: 250 mls/hr Insulin Aspart (Novolog Vial Sliding Scale -) 1 vial SQ BIDAC [facility] PRN Reason: Protocol Last Admin: 12/03/16 06:26 Dose: 4 units Insulin Detemir (Levemir Vial) 15 units SQ [facility] Last Admin: 12/02/16 21:39 Dose: 15 units Lisinopril (Prinivil) 5 mg PO DAILY [facility] Last Admin: 12/03/16 10:19 Dose: 5 mg Magnesium Oxide (Mag-Ox -) 400 mg PO TID [facility] Last Admin: 12/03/16 06:26 Dose: 400 mg Mupirocin (Bactroban 2% Ointment -) 1 applic TP BID [facility] Last Admin: 12/03/16 10:24 Dose: 1 applic Nitroglycerin (Nitrostat -) 0.4 mg SL Q5M PRN PRN Reason: FOR CHEST PAIN Oxycodone HCl (Roxicodone -) 10 mg PO Q4H PRN Last Admin: 12/02/16 22:11 Dose: 10 mg Pantoprazole Sodium (Protonix -) 20 mg PO BID [facility] Last Admin: 12/03/16 10:19 Dose: 20 mg Sevelamer Carbonate (Renvela -) 800 mg PO TIDCM [facility] Last Admin: 12/03/16 11:53 Dose: 800 mg - Objective Vital Signs: Vital Signs Temperature 98.4 F 12/03/16 06:10 Pulse Rate 87 12/03/16 06:10 Respiratory Rate 20 12/03/16 09:00 Blood Pressure 135/75 12/03/16 06:10 O2 Sat by Pulse Oximetry (%) 96 12/03/16 09:00 Constitutional: Yes: No Distress, Calm Cardiovascular: Yes: Regular Rate and Rhythm Respiratory: Yes: Regular, CTA Bilaterally Gastrointestinal: Yes: Normal Bowel Sounds, Soft Musculoskeletal: Yes: Other Extremities: Yes: Other Wound/Incision: Yes: Dressing Dry and Intact Neurological: Yes: Alert, Oriented Psychiatric: Yes: Alert Labs: CBC, BMP 12/02/16 09:10 12/02/16 22:30 Assessment/Plan roblem List - Problems (1) DM (diabetes mellitus), type 2 with renal complications Code(s): E11.29 - TYPE 2 DIABETES MELLITUS W OTH DIABETIC KIDNEY COMPLICATION Qualifiers: Diabetes mellitus complication detail: with chronic kidney disease Chronic kidney disease stage: on chronic dialysis (2) ESRD (end stage renal disease) on dialysis Code(s): N18.6 - END STAGE RENAL DISEASE Z99.2 - DEPENDENCE ON RENAL DIALYSIS (3) Hypertension Code(s): I10 - ESSENTIAL (PRIMARY) HYPERTENSION Qualifiers: Hypertension type: essential hypertension Qualified Code(s): I10 - Essential (primary) hypertension; I10 - Essential (primary) hypertension; I10 - Essential (primary) hypertension (4) Wound infection Code(s): T14.8 - OTHER INJURY OF UNSPECIFIED BODY REGION * DO NOT USE * L08.9 - LOCAL INFECTION OF THE SKIN AND SUBCUTANEOUS TISSUE, UNSP (5) Fever Code(s): R50.9 - FEVER, UNSPECIFIED 6 osteo of the lt foot plan will stop zosyn continue vanco await for sensitivities rest as per primary team
[2016-12-03] MEDS: oxyCODONE HCL 5 MG TABLET PO PRN ×2 (14:16→22:04)
[2016-12-03] MEDS ORDERED: INSULIN (NOVOLOG) ASPART 100 UNITS/ML 10ML VIAL ONE (22:00)
[2016-12-03] MEDS: INSULIN DETEMIR 100 UNITS/ML MDV SQ SCH (22:05)
[2016-12-03] MEDS: ATORVASTATIN CA 80 MG TABLET (FP) PO SCH (22:05)
--- NOTE | 2016-12-03 23:36 | PN ---
Progress Note, Physician Chief Complaint: Pt had MRI suggestive osteomelitis History of Present Illness: Pt is Final sensitivity pending No Fever Pt is on Vanco pending sensitivity by ID - Current Medication List Current Medications: Active Medications Acetaminophen (Tylenol -) 650 mg PO Q4H PRN PRN Reason: FEVER OR PAIN Last Admin: 12/02/16 22:09 Dose: 650 mg Acetaminophen (Tylenol -) 650 mg PO Q6H PRN PRN Reason: FEVER OR PAIN Last Admin: 12/03/16 14:16 Dose: 650 mg Allopurinol (Zyloprim -) 100 mg PO DAILY [facility] Last Admin: 12/03/16 10:19 Dose: 100 mg Atorvastatin Calcium (Lipitor -) 80 mg PO HS [facility] Last Admin: 12/03/16 22:05 Dose: 80 mg Cinacalcet (Sensipar -) 30 mg PO DAILY [facility] Last Admin: 12/03/16 10:19 Dose: 30 mg Furosemide (Lasix -) 80 mg PO DAILY [facility] Last Admin: 12/03/16 10:19 Dose: 80 mg Hydralazine HCl (Apresoline -) 25 mg PO BID [facility] Last Admin: 12/03/16 22:05 Dose: 25 mg Vancomycin HCl 1,000 mg/ (Dextrose) 250 mls @ 250 mls/hr IVPB TuThSa [facility] PRN Reason: Protocol Last Admin: 12/02/16 12:09 Dose: 250 mls/hr Insulin Aspart (Novolog Vial) 10 units SQ TIDAC [facility] Insulin Detemir (Levemir Vial) 15 units SQ HS [facility] Last Admin: 12/03/16 22:05 Dose: 15 units Lisinopril (Prinivil) 5 mg PO DAILY [facility] Last Admin: 12/03/16 10:19 Dose: 5 mg Magnesium Oxide (Mag-Ox -) 400 mg PO TID [facility] Last Admin: 12/03/16 22:05 Dose: 400 mg Mupirocin (Bactroban 2% Ointment -) 1 applic TP BID [facility] Last Admin: 12/03/16 22:06 Dose: Not Given Nitroglycerin (Nitrostat -) 0.4 mg SL Q5M PRN PRN Reason: FOR CHEST PAIN Oxycodone HCl (Roxicodone -) 10 mg PO Q4H PRN Last Admin: 12/03/16 22:04 Dose: 10 mg Pantoprazole Sodium (Protonix -) 20 mg PO BID [facility] Last Admin: 12/03/16 22:05 Dose: 20 mg Sevelamer Carbonate (Renvela -) 800 mg PO TIDCM [facility] Last Admin: 12/03/16 17:13 Dose: 800 mg - Objective Vital Signs: Vital Signs Temperature 98.1 F 12/03/16 19:27 Pulse Rate 95 H 12/03/16 19:27 Respiratory Rate 20 12/03/16 21:00 Blood Pressure 156/88 12/03/16 19:27 O2 Sat by Pulse Oximetry (%) 97 12/03/16 21:00 Constitutional: Yes: Well Nourished, No Distress Eyes: Yes: Conjunctiva Clear HENT: Yes: Atraumatic, Normocephalic Neck: Yes: Supple, Trachea Midline Cardiovascular: Yes: Regular Rate and Rhythm, S1, S2 Respiratory: Yes: Regular, CTA Bilaterally Gastrointestinal: Yes: Normal Bowel Sounds, Soft Edema: No Peripheral Pulses WNL: Yes Neurological: Yes: Alert, Oriented, Cran Nerves II-XII Intact Labs: CBC, BMP 12/02/16 09:10 12/02/16 22:30 Problem List - Problems (1) Fever Code(s): R50.9 - FEVER, UNSPECIFIED (2) ESRD (end stage renal disease) on dialysis Code(s): N18.6 - END STAGE RENAL DISEASE Z99.2 - DEPENDENCE ON RENAL DIALYSIS (3) Systolic and diastolic CHF, chronic Code(s): I50.42 - CHRONIC COMBINED SYSTOLIC AND DIASTOLIC HRT FAIL (4) Anemia in ESRD (end-stage renal disease) Code(s): N18.6 - END STAGE RENAL DISEASE D63.1 - ANEMIA IN CHRONIC KIDNEY DISEASE (5) Diabetes mellitus Code(s): E11.9 - TYPE 2 DIABETES MELLITUS WITHOUT COMPLICATIONS Qualifiers: Diabetes mellitus type: type 2 Diabetes mellitus complication status: with kidney complications Diabetes mellitus complication detail: with chronic kidney disease (6) Posterior neck pain Code(s): M54.2 - CERVICALGIA (7) Sepsis Code(s): A41.9 - SEPSIS, UNSPECIFIED ORGANISM Qualifiers: Sepsis type: sepsis due to unspecified organism Qualified Code(s): A41.9 - Sepsis, unspecified organism; A41.9 - Sepsis, unspecified organism; A41.9 - Sepsis, unspecified organism (8) Elevated cholesterol Code(s): E78.0 - PURE HYPERCHOLESTEROLEMIA * DO NOT USE * (9) HTN (hypertension), malignant Code(s): I10 - ESSENTIAL (PRIMARY) HYPERTENSION (10) 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A (11) Osteomyelitis of left foot Code(s): M86.9 - OSTEOMYELITIS, UNSPECIFIED Assessment/Plan (1) Fever Code(s): R50.9 - FEVER, UNSPECIFIED (2) ESRD (end stage renal disease) on dialysis Code(s): N18.6 - END STAGE RENAL DISEASE Z99.2 - DEPENDENCE ON RENAL DIALYSIS (3) Systolic and diastolic CHF, chronic Code(s): I50.42 - CHRONIC COMBINED SYSTOLIC AND DIASTOLIC HRT FAIL (4) Anemia in ESRD (end-stage renal disease) Code(s): N18.6 - END STAGE RENAL DISEASE D63.1 - ANEMIA IN CHRONIC KIDNEY DISEASE (5) Diabetes mellitus Code(s): E11.9 - TYPE 2 DIABETES MELLITUS WITHOUT COMPLICATIONS Qualifiers: Diabetes mellitus type: type 2 Diabetes mellitus complication status: with kidney complications Diabetes mellitus complication detail: with chronic kidney disease (6) Posterior neck pain Code(s): M54.2 - CERVICALGIA (7) Sepsis Code(s): A41.9 - SEPSIS, UNSPECIFIED ORGANISM Qualifiers: Sepsis type: sepsis due to unspecified organism Qualified Code(s): A41.9 - Sepsis, unspecified organism; A41.9 - Sepsis, unspecified organism; A41.9 - Sepsis, unspecified organism (8) Elevated cholesterol Code(s): E78.0 - PURE HYPERCHOLESTEROLEMIA * DO NOT USE * (9) HTN (hypertension), malignant Code(s): I10 - ESSENTIAL (PRIMARY) HYPERTENSION (10) 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 11) Osteomyelitis Lt Foot On MRI Pt will have MRI PT seen by vascular Dr Rose Kennedy
[2016-12-04] MEDS: MAGNESIUM OXIDE 400 MG TABLET (FP) PO SCH ×2 (06:07→15:20)
[2016-12-04 06:15] VITALS: TEMP 98.4
[2016-12-04] MEDS: INSULIN (NOVOLOG) ASPART 100 UNITS/ML 10ML VIAL SQ SCH ×3 (06:28→17:21)
[2016-12-04] MEDS: SEVELAMER CARBONATE 800 MG TAB (FP) PO SCH ×3 (08:30→17:21)
[2016-12-04] MEDS ORDERED: EPOETIN ALFA 10,000 UNIT/1 ML VIAL IVPUSH ONE (10:00)
[2016-12-04 12:04] LABS: MCHC 32.3 g/dl (32.0-35.9); MEAN CELL VOLUME 92.8 fl (80-96); MEAN PLT VOLUME 8.1 fl (7.5-11.1); PLATELET COUNT 331 K/MM3 (134-434); WHITE BLOOD COUNT 10.8 K/mm3 (4.0-10.0)
[2016-12-04 12:32] LABS: ANION GAP 11 (8-16); CO2 26 mmol/L (21-32); GLUCOSE,RANDOM 143 mg/dL (74-106); PHOSPHOROUS 3.7 mg/dL (2.5-4.9)
[2016-12-04 12:44] LABS: CREATININE 7.6 mg/dL (0.7-1.3)
--- NOTE | 2016-12-04 12:44 | PN ---
Progress Note, Physician Chief Complaint: Pt had MRI suggestive of osteomyelitis Pt will have 6 weeks of antibiotics History of Present Illness: Pt feeling better Pt Improved with IV vancomycin - Current Medication List Current Medications: Active Medications Acetaminophen (Tylenol -) 650 mg PO Q4H PRN PRN Reason: FEVER OR PAIN Last Admin: 12/02/16 22:09 Dose: 650 mg Acetaminophen (Tylenol -) 650 mg PO Q6H PRN PRN Reason: FEVER OR PAIN Last Admin: 12/03/16 14:16 Dose: 650 mg Allopurinol (Zyloprim -) 100 mg PO DAILY [facility] Last Admin: 12/03/16 10:19 Dose: 100 mg Atorvastatin Calcium (Lipitor -) 80 mg PO HS [facility] Last Admin: 12/03/16 22:05 Dose: 80 mg Cinacalcet (Sensipar -) 30 mg PO DAILY [facility] Last Admin: 12/03/16 10:19 Dose: 30 mg Furosemide (Lasix -) 80 mg PO DAILY [facility] Last Admin: 12/03/16 10:19 Dose: 80 mg Hydralazine HCl (Apresoline -) 25 mg PO BID [facility] Last Admin: 12/03/16 22:05 Dose: 25 mg Vancomycin HCl 1,000 mg/ (Dextrose) 250 mls @ 250 mls/hr IVPB TuThSa [facility] PRN Reason: Protocol Last Admin: 12/02/16 12:09 Dose: 250 mls/hr Insulin Aspart (Novolog Vial) 10 units SQ TIDAC [facility] Last Admin: 12/04/16 06:28 Dose: 10 units Insulin Detemir (Levemir Vial) 15 units SQ [facility] Last Admin: 12/03/16 22:05 Dose: 15 units Lisinopril (Prinivil) 5 mg PO DAILY [facility] Last Admin: 12/03/16 10:19 Dose: 5 mg Magnesium Oxide (Mag-Ox -) 400 mg PO TID [facility] Last Admin: 12/04/16 06:07 Dose: 400 mg Mupirocin (Bactroban 2% Ointment -) 1 applic TP BID [facility] Last Admin: 12/03/16 22:06 Dose: Not Given Nitroglycerin (Nitrostat -) 0.4 mg SL Q5M PRN PRN Reason: FOR CHEST PAIN Oxycodone HCl (Roxicodone -) 10 mg PO Q4H PRN Last Admin: 12/03/16 22:04 Dose: 10 mg Pantoprazole Sodium (Protonix -) 20 mg PO BID [facility] Last Admin: 12/03/16 22:05 Dose: 20 mg Sevelamer Carbonate (Renvela -) 800 mg PO TIDCM [facility] Last Admin: 12/04/16 08:30 Dose: 800 mg - Objective Vital Signs: Vital Signs Temperature 98.4 F 12/04/16 06:14 Pulse Rate 103 H 12/04/16 11:30 Respiratory Rate 18 12/04/16 11:30 Blood Pressure 172/96 12/04/16 11:30 O2 Sat by Pulse Oximetry (%) 97 12/04/16 09:00 Constitutional: Yes: Well Nourished, No Distress Eyes: Yes: Conjunctiva Clear HENT: Yes: Atraumatic, Normocephalic Neck: Yes: Supple, Trachea Midline Cardiovascular: Yes: Regular Rate and Rhythm, S1, S2 Respiratory: Yes: Regular, CTA Bilaterally Gastrointestinal: Yes: Normal Bowel Sounds, Soft Edema: No Neurological: Yes: Alert, Oriented, Cran Nerves II-XII Intact Labs: CBC, BMP 12/04/16 11:00 Problem List - Problems (1) Fever Code(s): R50.9 - FEVER, UNSPECIFIED (2) ESRD (end stage renal disease) on dialysis Code(s): N18.6 - END STAGE RENAL DISEASE Z99.2 - DEPENDENCE ON RENAL DIALYSIS (3) Systolic and diastolic CHF, chronic Code(s): I50.42 - CHRONIC COMBINED SYSTOLIC AND DIASTOLIC HRT FAIL (4) Anemia in ESRD (end-stage renal disease) Code(s): N18.6 - END STAGE RENAL DISEASE D63.1 - ANEMIA IN CHRONIC KIDNEY DISEASE (5) Diabetes mellitus Code(s): E11.9 - TYPE 2 DIABETES MELLITUS WITHOUT COMPLICATIONS Qualifiers: Diabetes mellitus type: type 2 Diabetes mellitus complication status: with kidney complications Diabetes mellitus complication detail: with chronic kidney disease (6) Posterior neck pain Code(s): M54.2 - CERVICALGIA (7) Sepsis Code(s): A41.9 - SEPSIS, UNSPECIFIED ORGANISM Qualifiers: Sepsis type: sepsis due to unspecified organism Qualified Code(s): A41.9 - Sepsis, unspecified organism; A41.9 - Sepsis, unspecified organism; A41.9 - Sepsis, unspecified organism (8) Elevated cholesterol Code(s): E78.0 - PURE HYPERCHOLESTEROLEMIA * DO NOT USE * (9) HTN (hypertension), malignant Code(s): I10 - ESSENTIAL (PRIMARY) HYPERTENSION (10) 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A (11) Osteomyelitis of left foot Code(s): M86.9 - OSTEOMYELITIS, UNSPECIFIED Assessment/Plan (1) Fever Code(s): R50.9 - FEVER, UNSPECIFIED (2) ESRD (end stage renal disease) on dialysis Code(s): N18.6 - END STAGE RENAL DISEASE Z99.2 - DEPENDENCE ON RENAL DIALYSIS (3) Systolic and diastolic CHF, chronic Code(s): I50.42 - CHRONIC COMBINED SYSTOLIC AND DIASTOLIC HRT FAIL (4) Anemia in ESRD (end-stage renal disease) Code(s): N18.6 - END STAGE RENAL DISEASE D63.1 - ANEMIA IN CHRONIC KIDNEY DISEASE (5) Diabetes mellitus Code(s): E11.9 - TYPE 2 DIABETES MELLITUS WITHOUT COMPLICATIONS Qualifiers: Diabetes mellitus type: type 2 Diabetes mellitus complication status: with kidney complications Diabetes mellitus complication detail: with chronic kidney disease (6) Posterior neck pain Code(s): M54.2 - CERVICALGIA (7) Sepsis Code(s): A41.9 - SEPSIS, UNSPECIFIED ORGANISM Qualifiers: Sepsis type: sepsis due to unspecified organism Qualified Code(s): A41.9 - Sepsis, unspecified organism; A41.9 - Sepsis, unspecified organism; A41.9 - Sepsis, unspecified organism (8) Elevated cholesterol Code(s): E78.0 - PURE HYPERCHOLESTEROLEMIA * DO NOT USE * (9) HTN (hypertension), malignant Code(s): I10 - ESSENTIAL (PRIMARY) HYPERTENSION (10) 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 11) Osteomyelitis Lt Foot On MRI Pt will have MRI PT seen by vascular Dr Rose Kennedy
--- NOTE | 2016-12-04 12:46 | DS ---
Physical Examination Vital Signs: Vital Signs Temperature 98.4 F 12/04/16 06:14 Pulse Rate 102 H 12/04/16 12:30 Respiratory Rate 18 12/04/16 12:30 Blood Pressure 166/100 12/04/16 12:30 O2 Sat by Pulse Oximetry (%) 97 12/04/16 09:00 Findings/Remarks: Pt Lt foot osteomyelitis presented with Fever Pt Improved on IV vancomycin Seen By Vascular and ID also Pt on HD Constitutional: Yes: Well Nourished, No Distress Eyes: Yes: Conjunctiva Clear HENT: Yes: Atraumatic, Normocephalic Neck: Yes: Supple, Trachea Midline Cardiovascular: Yes: Regular Rate and Rhythm, S1, S2 Respiratory: Yes: Regular, CTA Bilaterally Gastrointestinal: Yes: Normal Bowel Sounds, Soft Neurological: Yes: Alert, Oriented, Cran Nerves II-XII Intact Labs: CBC, BMP 12/04/16 11:00 Discharge Summary Reason For Visit: BACTEREMIA DUE TO METHICILIAN RESISTANT Current Active Problems Bacteremia (Acute) Conjunctivitis (Acute) Diabetes mellitus (Acute) Elevated cholesterol (Acute) Elevated troponin I level (Acute) Epistaxis (Acute) Fever (Acute) HTN (hypertension), malignant (Acute) Hyperkalemia (Acute) Influenza (Acute) Osteomyelitis of left foot (Acute) Pain (Acute) Pneumonia (Acute) Posterior neck pain (Acute) Sepsis (Acute) Systolic and diastolic CHF, chronic (Acute) Upper abdominal pain (Acute) Hospital Course: Pt was seen By ID Pt also had Vascular eval by Dr Alexander Kennedy Pt BC is negative wound cultures MRSA Pt will be on 4 weeks of Vanco during dialysis - Instructions Referrals: Yamilka Hernandez MD [Primary Care Provider] - Disposition: HOME - Home Medications Comprehensive Discharge Medication List: Ambulatory Orders Allopurinol [Zyloprim -] 100 mg PO DAILY 11/28/16 Atorvastatin Ca [Lipitor] 80 mg PO HS 11/28/16 Azithromycin 500 mg PO DAILY 11/28/16 Cinacalcet HCl [Sensipar] 30 mg PO DAILY 11/28/16 Ferrous Sulfate 325 mg PO DAILY 11/28/16 Furosemide [Lasix] 80 mg PO DAILY 11/28/16 Furosemide [Lasix] 80 mg PO DAILY 11/28/16 Hydralazine HCl 50 mg PO DAILY 11/28/16 Lisinopril 5 mg PO DAILY 11/28/16 Magnesium Oxide [Mag-Ox -] 400 mg PO TID 11/28/16 Nitroglycerin 0.4 mg SL DAILY PRN 11/28/16 Omeprazole 20 mg PO DAILY 11/28/16 Sevelamer Carbonate [Renvela] 800 mg NR TID 11/28/16
[2016-12-04] MEDS: VANCOMYCIN 1,000 MG in DEXTROSE 5%-WATER - 250 ML IVPB SCH (13:39)
--- NOTE | 2016-12-04 14:25 | PN ---
Progress Note, Physician History of Present Illness: patient stable no new issues - Current Medication List Current Medications: Active Medications Acetaminophen (Tylenol -) 650 mg PO Q4H PRN PRN Reason: FEVER OR PAIN Last Admin: 12/02/16 22:09 Dose: 650 mg Acetaminophen (Tylenol -) 650 mg PO Q6H PRN PRN Reason: FEVER OR PAIN Last Admin: 12/03/16 14:16 Dose: 650 mg Allopurinol (Zyloprim -) 100 mg PO DAILY [facility] Last Admin: 12/03/16 10:19 Dose: 100 mg Atorvastatin Calcium (Lipitor -) 80 mg PO HS [facility] Last Admin: 12/03/16 22:05 Dose: 80 mg Cinacalcet (Sensipar -) 30 mg PO DAILY [facility] Last Admin: 12/03/16 10:19 Dose: 30 mg Furosemide (Lasix -) 80 mg PO DAILY [facility] Last Admin: 12/03/16 10:19 Dose: 80 mg Hydralazine HCl (Apresoline -) 25 mg PO BID [facility] Last Admin: 12/03/16 22:05 Dose: 25 mg Vancomycin HCl 1,000 mg/ (Dextrose) 250 mls @ 250 mls/hr IVPB TuThSa [facility] PRN Reason: Protocol Last Admin: 12/04/16 13:39 Dose: 250 mls/hr Insulin Aspart (Novolog Vial) 10 units SQ TIDAC [facility] Last Admin: 12/04/16 06:28 Dose: 10 units Insulin Detemir (Levemir Vial) 15 units SQ HS [facility] Last Admin: 12/03/16 22:05 Dose: 15 units Lisinopril (Prinivil) 5 mg PO DAILY [facility] Last Admin: 12/03/16 10:19 Dose: 5 mg Magnesium Oxide (Mag-Ox -) 400 mg PO TID [facility] Last Admin: 12/04/16 06:07 Dose: 400 mg Mupirocin (Bactroban 2% Ointment -) 1 applic TP BID [facility] Last Admin: 12/03/16 22:06 Dose: Not Given Nitroglycerin (Nitrostat -) 0.4 mg SL Q5M PRN PRN Reason: FOR CHEST PAIN Oxycodone HCl (Roxicodone -) 10 mg PO Q4H PRN Last Admin: 12/03/16 22:04 Dose: 10 mg Pantoprazole Sodium (Protonix -) 20 mg PO BID [facility] Last Admin: 12/03/16 22:05 Dose: 20 mg Sevelamer Carbonate (Renvela -) 800 mg PO TIDCM [facility] Last Admin: 12/04/16 08:30 Dose: 800 mg - Objective Vital Signs: Vital Signs Temperature 98.4 F 12/04/16 06:14 Pulse Rate 94 H 12/04/16 13:30 Respiratory Rate 18 12/04/16 13:30 Blood Pressure 184/88 12/04/16 13:30 O2 Sat by Pulse Oximetry (%) 97 12/04/16 09:00 Constitutional: Yes: No Distress, Calm Cardiovascular: Yes: Regular Rate and Rhythm Respiratory: Yes: Regular, CTA Bilaterally Gastrointestinal: Yes: Normal Bowel Sounds, Soft Musculoskeletal: Yes: WNL Extremities: Yes: Other Wound/Incision: Yes: Dressing Dry and Intact Neurological: Yes: Alert, Oriented Psychiatric: Yes: Alert, Oriented Labs: CBC, BMP 12/04/16 11:00 12/04/16 11:00 Assessment/Plan roblem List - Problems (1) DM (diabetes mellitus), type 2 with renal complications Code(s): E11.29 - TYPE 2 DIABETES MELLITUS W OTH DIABETIC KIDNEY COMPLICATION Qualifiers: Diabetes mellitus complication detail: with chronic kidney disease Chronic kidney disease stage: on chronic dialysis (2) ESRD (end stage renal disease) on dialysis Code(s): N18.6 - END STAGE RENAL DISEASE Z99.2 - DEPENDENCE ON RENAL DIALYSIS (3) Hypertension Code(s): I10 - ESSENTIAL (PRIMARY) HYPERTENSION Qualifiers: Hypertension type: essential hypertension Qualified Code(s): I10 - Essential (primary) hypertension; I10 - Essential (primary) hypertension; I10 - Essential (primary) hypertension (4) Wound infection Code(s): T14.8 - OTHER INJURY OF UNSPECIFIED BODY REGION * DO NOT USE * L08.9 - LOCAL INFECTION OF THE SKIN AND SUBCUTANEOUS TISSUE, UNSP (5) Fever Code(s): R50.9 - FEVER, UNSPECIFIED 6 osteo of the lt foot plan patient with mrsa osteo vanco to be continued during dialysis for another 4 weeks follow levels during dialysis rest as per primary team
[2016-12-04] MEDS: hydrALAZINE HCL 25 MG TABLET (FP) PO SCH (15:14)
[2016-12-04] MEDS: ALLOPURINOL 100 MG TABLET (FP) PO SCH (15:15)
[2016-12-04] MEDS: FUROSEMIDE 40 MG TABLET (FP) PO SCH (15:15)
[2016-12-04] MEDS: LISINOPRIL 5 MG TABLET (FP) PO SCH (15:17)
[2016-12-04] MEDS: PANTOPRAZOLE 20 MG TABLET (FP) PO SCH (15:17)
[2016-12-04] MEDS: CINACALCET HCL 30 MG TAB (FP) PO SCH (15:17)
[2016-12-04 15:20] VITALS: BP 189/98; PULSE 107
[2016-12-04] MEDS: oxyCODONE HCL 5 MG TABLET PO PRN (15:20)
[2016-12-04] MEDS: ACETAMINOPHEN 325 MG TABLET (FP) PO PRN (15:20)
--- NOTE | 2016-12-04 15:43 | PN ---
Progress Note (short form) - Note Progress Note: Renal Follow up for ESRD on HD Pt seen and examined at the bedside awake and alert no acute complaint s/p dialysis this afternoon Vital Signs Temperature 98.4 F 12/04/16 06:14 Pulse Rate 107 H 12/04/16 14:40 Respiratory Rate 18 12/04/16 14:40 Blood Pressure 189/98 12/04/16 14:40 O2 Sat by Pulse Oximetry (%) 97 12/04/16 09:00 Intake & Output 12/01/16 12/02/16 12/03/16 12/04/16 23:59 23:59 23:59 23:59 Intake Total 700 1650 1060 400 Output Total 0 0 Balance 700 1650 1060 400 Weight 204 lb 6 oz 206 lb 4 oz 210 lb 5 oz 208 lb 3 oz NAD RRR, No M/R CTA, no rales soft, obese, NT/ND left foot in dressing, trace edema left leg CBC, BMP 12/04/16 11:00 12/04/16 11:00 Current Medications Acetaminophen (Tylenol -) 650 mg PO Q4H PRN PRN Reason: FEVER OR PAIN Last Admin: 12/04/16 15:20 Dose: 650 mg Acetaminophen (Tylenol -) 650 mg PO Q6H PRN PRN Reason: FEVER OR PAIN Last Admin: 12/03/16 14:16 Dose: 650 mg Allopurinol (Zyloprim -) 100 mg PO DAILY [facility] Last Admin: 12/04/16 15:15 Dose: Not Given Atorvastatin Calcium (Lipitor -) 80 mg PO HS [facility] Last Admin: 12/03/16 22:05 Dose: 80 mg Cinacalcet (Sensipar -) 30 mg PO DAILY [facility] Last Admin: 12/04/16 15:17 Dose: Not Given Furosemide (Lasix -) 80 mg PO DAILY [facility] Last Admin: 12/04/16 15:15 Dose: Not Given Hydralazine HCl (Apresoline -) 25 mg PO BID [facility] Last Admin: 12/04/16 15:14 Dose: Not Given Vancomycin HCl 1,000 mg/ (Dextrose) 250 mls @ 250 mls/hr IVPB TuThSa [facility] PRN Reason: Protocol Last Admin: 12/04/16 13:39 Dose: 250 mls/hr Insulin Aspart (Novolog Vial) 10 units SQ TIDAC [facility] Last Admin: 12/04/16 15:15 Dose: Not Given Insulin Detemir (Levemir Vial) 20 units SQ HS [facility] Lisinopril (Prinivil) 5 mg PO DAILY [facility] Last Admin: 12/04/16 15:17 Dose: Not Given Magnesium Oxide (Mag-Ox -) 400 mg PO TID [facility] Last Admin: 12/04/16 15:20 Dose: 400 mg Mupirocin (Bactroban 2% Ointment -) 1 applic TP BID [facility] Last Admin: 12/03/16 22:06 Dose: Not Given Nitroglycerin (Nitrostat -) 0.4 mg SL Q5M PRN PRN Reason: FOR CHEST PAIN Oxycodone HCl (Roxicodone -) 10 mg PO Q4H PRN Last Admin: 12/04/16 15:20 Dose: 10 mg Pantoprazole Sodium (Protonix -) 20 mg PO BID [facility] Last Admin: 12/04/16 15:17 Dose: Not Given Sevelamer Carbonate (Renvela -) 800 mg PO TIDCM [facility] Last Admin: 12/04/16 15:16 Dose: Not Given 51 year old Gentleman with PMhx of ESRD on HD (TTS at [facility]), Hypertension, CAD, PVD, DM2, Hx of paraspinal abcess who presented with complaints of fever and TMA stump pain. #ESRD on HD tolerated HD well today total UF 2.5L no complications to resume HD on TTS schedule as an outpatient #Suspected Wound Infection/Fever MRI suggestive of osteomylitis continue Vanco with HD for 4 more weeks per ID #Hypertension Continue Lisinpril and Hydralzine Goal BP < 140/90 hold antihypertensives before dialysis #CKD related Anemia Continue Epogen with HD Goal Hgb > 10 #Renal Osteodystrophy Trend PHos and ca levels continue sensipar and renvela Antwan Hurley DO Problem List - Problems (1) DM (diabetes mellitus), type 2 with renal complications Code(s): E11.29 - TYPE 2 DIABETES MELLITUS W OTH DIABETIC KIDNEY COMPLICATION Qualifiers: Diabetes mellitus complication detail: with chronic kidney disease Chronic kidney disease stage: on chronic dialysis (2) ESRD (end stage renal disease) on dialysis Code(s): N18.6 - END STAGE RENAL DISEASE Z99.2 - DEPENDENCE ON RENAL DIALYSIS (3) Hypertension Code(s): I10 - ESSENTIAL (PRIMARY) HYPERTENSION Qualifiers: Hypertension type: essential hypertension Qualified Code(s): I10 - Essential (primary) hypertension; I10 - Essential (primary) hypertension; I10 - Essential (primary) hypertension (4) Wound infection Code(s): T14.8 - OTHER INJURY OF UNSPECIFIED BODY REGION * DO NOT USE * L08.9 - LOCAL INFECTION OF THE SKIN AND SUBCUTANEOUS TISSUE, UNSP (5) Fever Code(s): R50.9 - FEVER, UNSPECIFIED
[2016-12-04] MEDS: MUPIROCIN 2% TOPICAL OINTMENT 22 GM TUBE TP SCH (16:57)
[2016-12-04] MEDS ORDERED: INSULIN DETEMIR 100 UNITS/ML MDV SQ SCH (22:00)
== END 2016-12-04 20:12 | disposition home or self-care (01) | DRG 871 ==
LOC: SUPCPDRO 17:07 → JER 17:07 → JERBED 23:13 → J6S 11-29 01:49
PROVIDERS: ADMIT Internal Medicine; ATTEND Internal Medicine
PROC: 5A1D70Z Performance of Urinary Filtration, Intermittent, Less than 6 Hours Per Day (ICD-10-PCS; principal; 2016-12-02)
DX: A41.02 Sepsis due to Methicillin resistant Staphylococcus aureus (principal); N18.6 End stage renal disease; I12.0 Hypertensive chronic kidney disease with stage 5 chronic kidney disease or end stage renal disease; I13.2 Hypertensive heart and chronic kidney disease with heart failure and with stage 5 chronic kidney disease, or end stage renal disease; L03.116 Cellulitis of left lower limb; M86.9 Osteomyelitis, unspecified; N17.9 Acute kidney failure, unspecified; I50.42 Chronic combined systolic (congestive) and diastolic (congestive) heart failure; B95.62 Methicillin resistant Staphylococcus aureus infection as the cause of diseases classified elsewhere; E11.22 Type 2 diabetes mellitus with diabetic chronic kidney disease; E66.9 Obesity, unspecified; Z68.31 Body mass index [BMI] 31.0-31.9, adult; L97.529 Non-pressure chronic ulcer of other part of left foot with unspecified severity; E11.69 Type 2 diabetes mellitus with other specified complication; E87.5 Hyperkalemia; Z99.2 Dependence on renal dialysis; I25.2 Old myocardial infarction; Z95.1 Presence of aortocoronary bypass graft; E78.5 Hyperlipidemia, unspecified; D64.9 Anemia, unspecified; I50.9 Heart failure, unspecified; Z87.891 Personal history of nicotine dependence; I25.10 Atherosclerotic heart disease of native coronary artery without angina pectoris; I73.9 Peripheral vascular disease, unspecified; D63.1 Anemia in chronic kidney disease; N25.0 Renal osteodystrophy; H54.62 Unqualified visual loss, left eye, normal vision right eye; Z89.422 Acquired absence of other left toe(s)
CPT/HCPCS: 36415; 71020-TC; 73630-TC-LT; 73718-LT; 80048; 80053; 81003; 81015; 82565; 82947; 83605; 83735; 83880; 84100; 84484; 84520; 85025; 85027; 85651; 86140; 86704; 86706; 86708; 86803; 87040; 87070; 87086; 87186; 87205; 87340; 93005; 93010; 93971-TC; 97116-GP; 97161-GP; 99284-25; G0480; J0885

== ENCOUNTER 2016-12-09 08:24 | Inpatient (IN) | payer OTHER ==
[2016-12-09 08:31] VITALS: BMI 33.6
--- NOTE | 2016-12-09 09:02 | PDOC ---
History of Present Illness - General Chief Complaint: Shortness of Breath Stated Complaint: SOB Time Seen by Provider: 12/09/16 08:43 - History of Present Illness Initial Comments: 12/09/16 09:00 Patient is a 51 y.o. 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 Patient states he was awakened from sleep with shortness of breath. Patient endorses pleuritic chest pain, as well as intermittent non-productive cough and a few episodes of yellowish emesis. Patient denies any subjective fever, nausea, abdominal pain, or symptoms. Patient's @ bedside note patient had a two month hospital admission at an outside institution for pneumonia last year Surgical: L metarsal amputation (2009) CABG (2010) Allergies: NKDA PMD: Dr. Hernandez Master Automotive Technician: Dr. Yina Coronel Past History - Past Medical History Allergies/Adverse Reactions: Allergies Allergy/AdvReac Type Severity Reaction Status Date / Time No Known Drug Allergies Allergy Verified 12/09/16 08:28 Home Medications: Ambulatory Orders Allopurinol [Zyloprim -] 100 mg PO DAILY 11/28/16 Atorvastatin Ca [Lipitor] 80 mg PO HS 11/28/16 Cinacalcet HCl [Sensipar] 30 mg PO DAILY 11/28/16 Ferrous Sulfate 325 mg PO DAILY 11/28/16 Furosemide [Lasix] 80 mg PO DAILY 11/28/16 Hydralazine HCl 50 mg PO DAILY 11/28/16 Lisinopril 5 mg PO DAILY 11/28/16 Magnesium Oxide [Mag-Ox -] 400 mg PO TID 11/28/16 Nitroglycerin 0.4 mg SL DAILY PRN 11/28/16 Omeprazole 20 mg PO DAILY 11/28/16 Sevelamer Carbonate [Renvela] 800 mg NR TID 11/28/16 Anemia: Yes Asthma: No Cancer: No Cardiac Disorders: Yes ("silent [place]" CABG x 2 vessels 05/24/2010) CVA: No COPD: No CHF: Yes Dementia: No Diabetes: Yes Dialysis: Yes (,,) GI Disorders: Yes (GERD) Disorders: No HTN: Yes Hypercholesterolemia: Yes Liver Disease: No Seizures: No Thyroid Disease: No - Surgical History Abdominal Surgery: No Appendectomy: No Cardiac Surgery: Yes (CABG 05/2010, cardiac stent may 2013) Cholecystectomy: No Lung Surgery: No Orthopedic Surgery: Yes (transmet amp L foot) - Family Disease History Family Disease History: Diabetes: Mother, Heart Disease: Father - Immunization History Immunization Up to Date: Yes - Suicide/Smoking/Psychosocial Hx Smoking Status: No Smoking History: Former smoker Years of Tobacco Use: 0 Have you smoked in the past 12 months: No Number of Cigarettes Smoked Daily: 2 If you are a former smoker, when did you quit?: 1990 Cigars Per Day: 0 Information on smoking cessation initiated: No 'Breaking Loose' booklet given: 06/04/12 Hx Alcohol Use: No Drug/Substance Use Hx: No Substance Use Type: None Hx Substance Use Treatment: No Review of Systems - Review of Systems Constitutional: No: Chills, Fever Respiratory: Yes: Cough, Shortness of Breath Cardiac (ROS): Yes: Chest Pain *Physical Exam - Vital Signs Last Vital Signs Temp Pulse Resp BP Pulse Ox 98.0 F 111 H 26 H 165/90 93 L 12/09/16 08:24 12/09/16 08:24 12/09/16 08:24 12/09/16 08:24 12/09/16 08:24 - Physical Exam General Appearance: Yes: Nourished, Obese Neck: positive: Trachea midline, Supple. negative: Lymphadenopathy (R), Lymphadenopathy (L) Respiratory/Chest: positive: Accessory Muscle Use, Labored Respiration, Crackles (- lower lung scott), Wheezing (-middle lung scott) Cardiovascular: positive: S1, S2 Gastrointestinal/Abdominal: positive: Soft, Protuberent Extremity: positive: Normal Capillary Refill Neurologic: positive: Fully Oriented, Alert ED Treatment Course - LABORATORY CBC & Chemistry Diagram: 12/09/16 09:38 12/09/16 09:38 - RADIOLOGY Radiology Studies Ordered: Category Date Time Status CHEST PA & LAT [RAD] Stat Radiology 12/09/16 08:57 Ordered Medical Decision Making - Medical Decision Making 12/09/16 09:46 Patient is a 51 y.o. male with significant PMH who presents c/o acute onset of shortness of breath. Initial DDX is cardiopulmonary and includes CHF exacerbation vs. pneumonia (less likely as patient is on Abx) vs. PE vs. ACS vs. pleural effusion PLAN: 1. Sepsis work-up 12/09/16 09:[address] Hurley (covering for Dr. Yina Coronel) patient currently on Vanc /Gentamycin for recent MRSA infection of LLE, making pneumonia less likely. Wet read of CXR shows B/L opacities (likely effusions) as well as increased pulmonary vascular congestion. Patient accepted for admission to telemetry under Dr. Hanley (admits for Dr. Maria) with consults to Drs. Chavis ( Infectious Disease) and Carol Ann (Cardiology). One dose Pip/Tazo as per Dr. Nazario. 12/09/16 11:25 Patient's Hb 7.1 - will be transfused during HD later this afternoon. Dr. Chavis evaluated at bedside - recommends d/c Pip/Tazo secondary to nephrotoxicity as well as hydrophilicity, started Cefepime. *DC/Admit/Observation/Transfer Diagnosis at time of Disposition: Acute on chronic congestive heart failure
[2016-12-09] MEDS ORDERED: SODIUM CHLORIDE 0.9% 1000 ML INFUS.BAG IV PRN (09:28)
[2016-12-09] MEDS ORDERED: SODIUM CHLORIDE 500 ML IV ONE (09:28)
[2016-12-09 10:08] LABS: BASOPHIL 0.6 % (0-2.0); EOSINOPHIL 3.7 % (0-4.5); MCHC 31.9 g/dl (32.0-35.9); MEAN PLT VOLUME 8.1 fl (7.5-11.1); NEUTROPHILS 81.1 % (42.8-82.8); PLATELET COUNT 369 K/MM3 (134-434); RDW 15.9 % (11.9-15.9)
--- NOTE | 2016-12-09 10:14 | PDOC ---
Attending Attestation - Resident Resident Name: Brooke Atwood - ED Attending Attestation I have performed the following: I have examined & evaluated the patient, The case was reviewed & discussed with the resident, I agree w/resident's findings & plan, Exceptions are as noted - HPI HPI: 12/09/16 10:12 51-year-old male with extensive cardiac history and CHF, end-stage renal disease on Thursday//Thursday dialysis and compliance, now presents with 3-4 days of worsening dyspnea and orthopnea, clear with cough, and lower extremity edema, all most consistent with his CHF exacerbations. Reports compliance with his medications and dialysis, now reporting some precordial discomfort with cough but no other chest pressure. No fevers or chills. - Physicial Exam PE: 12/09/16 10:13 Tachypnea, tachycardic, hypoxic on arrival Obese Bibasilar crackles with expiratory wheezing in the midlung scott Abdomen is soft 1+ edema bilaterally - Medical Decision Making 12/09/16 10:13 51-year-old male with extensive cardiac history and end-stage renal disease presents with volume overload and progressive shortness of breath/increased work of breathing over the last 3-4 days, most consistent with pulmonary edema. Rule out infectious etiology, but afebrile. Sepsis protocol initiated on arrival given SIRS criteria, though exam more consistent with CHF exacerbation Chest x-ray shows bilateral pulmonary congestion with persistent left base opacity present since at least September Check labs, EKG Discussed with renal for dialysis Will need admission
[2016-12-09 10:24] LABS: INR 1.16 (0.82-1.09); PROTHROMBIN TIME (PATIENT) 13.1 SEC (9.98-11.88)
[2016-12-09 10:27] LABS: ACTIVATED PTT 31.2 SECONDS (26.9-34.4)
[2016-12-09 10:29] LABS: ALLENS TEST POSITIVE; ART PUNCT SITE RIGHT RADIAL; ARTERIAL BLD GAS O2 SATURATION 95.2 % (90-98.9); ARTERIAL BLOOD GAS BASE EXCESS -2.4 meq/l (-2-2); ARTERIAL BLOOD GAS HCO3 22.2 meq/L (22-26); ARTERIAL BLOOD GAS PO2 78.5 mmHg (80-100); ARTERIAL BLOOD GAS pH 7.36 (7.35-7.45); LPM/O2% 2L; PT. ON O2? YES; TYPE OF O2 NASAL
[2016-12-09] MEDS ORDERED: GENTAMICIN 80 MG PREMIXED IVPB 100 ML IVPB ONE (10:29)
[2016-12-09 10:35] LABS: ALBUMIN 2.5 g/dl (3.4-5.0); ANION GAP 11 (8-16); CALCIUM 7.8 mg/dL (8.5-10.1); CO2 25 mmol/L (21-32); SGOT/AST 7 U/L (15-37); SGPT/ALT 14 U/L (12-78)
[2016-12-09 10:42] LABS: ALK PHOS 217 U/L (45-117); BILIRUBIN,TOTAL 0.6 mg/dL (0.2-1.0); TOT PROT 7.6 g/dl (6.4-8.2)
[2016-12-09 10:47] LABS: CREATININE 8.2 mg/dL (0.7-1.3); GLUCOSE,RANDOM 302 mg/dL (74-106)
[2016-12-09] MEDS ORDERED: ALBUTEROL SO4 2.5/IPRATROPIUM 0.5 INH SOL 3 ML VIAL.NEB. NEB ONE ×2 (11:13→14:06)
[2016-12-09] MEDS: ALBUTEROL SO4 2.5/IPRATROPIUM 0.5 INH SOL 3 ML VIAL.NEB. NEB SCH ×3 (11:20→22:07)
[2016-12-09 11:48] LABS: TROPONIN I 0.03 ng/ml (0.00-0.05)
--- NOTE | 2016-12-09 12:16 | PN ---
Progress Note (short form) - Note Progress Note: Renal Follow up for ESRD on HD Pt s/p recent admission This is a 51 year old Gentleman with PMhx of ESRD on HD (TTS at [facility]), Hypertension, CAD, PVD, DM2, Hx of paraspinal abcess recently admitted for Osteomylitis who presented with complaints of SOB. Pt last had dialysis on Thursday during which he had a fever of 101. He had been getting Abx with HD (Vanco and Gent). He denies any fevers at home s/p the HD session. Reports SOB that started last night. Denies any chest pain. Vital Signs Temperature 98.0 F 12/09/16 08:24 Pulse Rate 111 H 12/09/16 08:24 Respiratory Rate 26 H 12/09/16 08:24 Blood Pressure 165/90 12/09/16 08:24 O2 Sat by Pulse Oximetry (%) 93 L 12/09/16 08:24 Intake & Output 12/06/16 12/07/16 12/08/16 12/09/16 23:59 23:59 23:59 23:59 Weight 215 lb Mild Resp Distress Awake and alert No JVD Tachycardic no M/R + wheezing, no rales Obese, mild distended Abd Trace to 1+ edema in the LE CBC, BMP 12/09/16 09:38 12/09/16 09:38 Laboratory Tests 12/09/16 09:38 Calcium 7.8 L Albumin 2.5 L Laboratory Tests 12/09/16 09:38 Creatine Kinase 120 Troponin I 0.03 D Current Medications Albuterol/Ipratropium (Duoneb -) 1 amp NEB TIDR SAUNDRA Last Admin: 12/09/16 11:20 Dose: 1 amp Epoetin Lauri (Procrit -) 20,000 unit IVPUSH ONCE ONE Stop: 12/09/16 10:27 Gentamicin Sulfate/Sodium Chloride (Garamycin 80 Mg Premixed Ivpb -) 100 mls @ 100 mls/hr IVPB ONCE ONE Stop: 12/09/16 11:28 Vancomycin HCl 1,000 mg/ (Dextrose) 250 mls @ 250 mls/hr IVPB ONCE ONE PRN Reason: Protocol Stop: 12/09/16 11:28 Sodium Chloride (Normal Saline -) 970 ml IV Q20M PRN PRN Reason: MAP<65mm Hg OR SBP <90 A/P 51 year old Gentleman with PMhx of ESRD on HD (TTS at [facility]), Hypertension, CAD, PVD, DM2, Hx of paraspinal abcess recently admitted for Osteomylitis who presented with complaints of SOB. #SOB likely multifactorial secondary to CHF, Asthma/Reactive airway disease and Anemia Will arrange HD with UF as tolerated Neb Tx ordered will also transfuse 1 units PRBC with HD trend clinically Cardiac Enzymes negative Fluid restriction of 1.2 L daily Low salt diet #ESRD on HD for HD today as inpatient with UF as tolerated Renal diet Dose all meds for intermittent HD (MWF) #Worsening Anemia Check iron studies with HD transfuse1 unit prbc High dose DAVON with HD #Recent diagnosis of Osteomylitis Continue [place] with HD Thank you Will follow Antwan Hurley DO
[2016-12-09] MEDS ORDERED: PIPERACILLIN/TAZOB 2.25 GM/50 ML PREMIX BAG IVPB ONE (13:22)
--- NOTE | 2016-12-09 14:14 | CON.CARD ---
Consult Consult Specialty:: cardiology - History of Present Illness Chief Complaint: shortness of breath; hx CHF. Presently A&Ox3; pleasant; denies chest pain; easily short of breath; requres several pillows History of Present Illness: Patient is a 51 y.o. with a PMH of MRSA, cervical osteomyelitis, hypertension, CHF (ECHO 04/11: diastolic dysfunction; normal LVEF), silent [place] s/p CABG x 2 vessels (2010), cardiac stent (2013), ESRD (on Dialysis T,R,S), anemia and hyperlipidema as well as an extended ICU admission for pneumonia at an outside institution in December 2015 presents c/o of acute onset of shortness of breath. Patient states he was awakened from sleep with shortness of breath. Patient endorses pleuritic chest pain, as well as intermittent non-productive cough and a few episodes of yellowish emesis. Patient denies any subjective fever, nausea, abdominal pain, or symptoms. Patient's @ bedside note patient had a two month hospital admission at an outside institution for pneumonia last year Surgical: L metarsal amputation (2009) CABG (2010) Allergies: NKDA PMD: Dr. Hernandez Home Improvement Contractor: Dr. Yina Coronel - History Source History Provided By: Patient, Medical Record - Past Medical History Cardio/Vascular: Yes: CAD, CHF (normal ejection fraction; poor LV compliance; no valvular abnormalities), HTN, Hyperlipdemia. No: AFIB, Aneurysm, Aortic Insufficiency, Aortic Stenosis, Deep Vein Thrombosis, [place], Mitral Insufficiency, Mitral Stenosis, Murmur, Pulmonary Hypertension, Other Gastrointestinal: Yes: GERD, GI Bleed. No: Constipation, Crohn's Disease, Diverticulitis, Diverticulosis, Esophageal Varices, Gastritis, Hemorrhoids, Hiatal Hernia, Inflamatory Bowel Disease, Irritable Bowel Disease, Pancreatitis , Peptic Ulcer Disease, Ulcerative Colitis, Other Renal/: Yes: Renal Failure, Hemodialysis (ESRD on HD MWF via L arm AVF) Psych: Yes: Anxiety Musculoskeletal: Yes: Other (left metatarsal amputation). No: Bursitis, Chronic low back pain, Hemiparesis, Hemiplegia, Osteoarthritis, Paraplegia Rheumatology: Yes: Gout Endocrine: Yes: Diabetes Mellitus. No: Mickey's Disease, [place]'s Disease, Diabetes Insipidus, Hyperparathyroidism, Hyperthyroidism, Hypothyroidism, Osteopenia, SIADH, Other Additional Medical History: as above in HPI; L eye blindness; on renal transplant list at [facility]. bilateral detached retinas - Past Surgical History Past Surgical History: Yes: Amputation (Left Transmetatarsal), AV Fistula/Graft , CABG (05/2010), Stent (s/p cardiac cath with stent placement). No: None, AAA Repair, AICD, Appendectomy, Arthrosocopy, Bariatric Surgery, Breast Biopsy, Bypass, Carotid Endarterectomy, Cataract Removal, Cholecystectomy, Colectomy, Colonoscopy, Colostomy, Craniotomy, , Cystectomy, Hernia Repair, Hysterectomy, Ileal Conduit, Ileosotomy, Joint Replacement, Kidney Transplant, Laminectomy, Liver Transplant, Mastectomy, Nephrectomy, Oopherectomy, Orchiectomy, Permanent Pacemaker, Prostatectomy, Splenectomy, Thoracotomy, TURP , Tonsillectomy, Tubal Ligation, Upper Endoscopy, Valve Replacement, Vasectomy, Vein Stripping/Ligation - Alcohol/Substance Use Hx Alcohol Use: No History of Substance Use: reports: None - Smoking History Smoking history: Former smoker Have you smoked in the past 12 months: No Aproximately how many cigarettes per day: 2 If you are a former smoker, when did you quit?: 1989 - Social History Usual Living Arrangement: With Spouse ADL: Independent 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 History of Recent Travel: No Home Medications - Allergies Allergies/Adverse Reactions: Allergies Allergy/AdvReac Type Severity Reaction Status Date / Time No Known Drug Allergies Allergy Verified 12/09/16 08:28 - Home Medications Home Medications: Ambulatory Orders Allopurinol [Zyloprim -] 100 mg PO DAILY 11/28/16 Atorvastatin Ca [Lipitor] 80 mg PO HS 11/28/16 Cinacalcet HCl [Sensipar] 30 mg PO DAILY 11/28/16 Ferrous Sulfate 325 mg PO DAILY 11/28/16 Furosemide [Lasix] 80 mg PO DAILY 11/28/16 Hydralazine HCl 50 mg PO DAILY 11/28/16 Lisinopril 5 mg PO DAILY 11/28/16 Magnesium Oxide [Mag-Ox -] 400 mg PO TID 11/28/16 Nitroglycerin 0.4 mg SL DAILY PRN 11/28/16 Omeprazole 20 mg PO DAILY 11/28/16 Sevelamer Carbonate [Renvela] 800 mg NR TID 11/28/16 Family Disease History - Family Disease History Family Disease History: Diabetes: Father, Mother, Other: Father, Mother Review of Systems - Review of Systems Constitutional: reports: Weakness Eyes: reports: No Symptoms HENT: reports: No Symptoms Neck: reports: No Symptoms Cardiovascular: reports: Shortness of Breath Respiratory: reports: SOB on Exertion Gastrointestinal: reports: No Symptoms Genitourinary: reports: Menses Musculoskeletal: reports: Muscle Weakness Integumentary: reports: Other (LE amputations) Neurological: reports: Weakness Psychiatric: reports: Anxiety, Depression - Risk Factors Known Risk Factors: Yes: Age, Diabetes Mellitus, Gender, Hypercholesterolemia, Hypertension, Physical Inactivity, Other (CAD; PAD; ESRD) Vital Signs: Vital Signs Temperature 98.0 F 12/09/16 08:24 Pulse Rate 111 H 12/09/16 08:24 Respiratory Rate 26 H 12/09/16 08:24 Blood Pressure 165/90 12/09/16 08:24 O2 Sat by Pulse Oximetry (%) 93 L 12/09/16 08:24 Constitutional: Yes: Calm Eyes: Yes: WNL HENT: Yes: WNL Neck: Yes: WNL Respiratory: Yes: Diminished Gastrointestinal: Yes: Soft Renal/: No: Anuria Murmur: Yes: Systolic Murmur, Grade 2 Musculoskeletal: Yes: Muscle Weakness Extremities: Yes: Amputation Edema: No Peripheral Pulses WNL: No Peripheral Pulses: 1+ Left Femoral, 1+ Right Femoral Integumentary: Yes: WNL Neurological: Yes: Alert, Oriented, Weakness Psychiatric: Yes: Alert, Oriented - Other Data Labs, Other Data: INR, PTT INR 1.16 (0.82-1.09) H 12/09/16 09:39 Ejection Fraction %: LVEF > or = 40 % Imaging - Results EKG: Image Reviewed (NSR) Problem List - Problems (1) CHF exacerbation Assessment/Plan: on hydralazine and lisinopril; F/u BUN/Cr, electrolytes, Is and Os, daily weight. For hemodialysis today. Code(s): I50.9 - HEART FAILURE, UNSPECIFIED (2) Diabetes mellitus Code(s): E11.9 - TYPE 2 DIABETES MELLITUS WITHOUT COMPLICATIONS Qualifiers: Diabetes mellitus type: type 2 Diabetes mellitus complication status: with kidney complications Diabetes mellitus complication detail: with chronic kidney disease (3) Elevated cholesterol Assessment/Plan: statin. Code(s): E78.0 - PURE HYPERCHOLESTEROLEMIA * DO NOT USE * (4) Anemia in ESRD (end-stage renal disease) Code(s): N18.6 - END STAGE RENAL DISEASE D63.1 - ANEMIA IN CHRONIC KIDNEY DISEASE (5) CAD (coronary artery disease) Code(s): I25.10 - ATHSCL HEART DISEASE OF [place] CORONARY ARTERY W/O ANG PCTRS (6) Depression Code(s): F32.9 - MAJOR DEPRESSIVE DISORDER, SINGLE EPISODE, UNSPECIFIED
--- NOTE | 2016-12-09 14:54 | CON.ID ---
Consult Consult Specialty:: infectious diseases Reason for Consultation:: sepsis,hypoxia - History of Present Illness Chief Complaint: sob History of Present Illness: 51 y.o. with a PMH of MRSA, cervical osteomyelitis, hypertension, CHF (ECHO : diastolic dysfunction; normal LVEF), silent [place] s/p CABG x 2 vessels (2010), cardiac stent (2013), ESRD (on Dialysis T,R,S), anemia and hyperlipidema as well as an extended ICU admission for pneumonia at an outside institution in December 2015 presents c/o of acute onset of shortness of breath. Patient states he was awakened from sleep with shortness of breath. patient well known to me from previous admission and was d/wayne home wiht a diagnosis of osteo and is being treated for the same patient now feels much better and is going to get dialysed today - History Source History Provided By: Patient Limitations to Obtaining History: No Limitations - Past Medical History Cardio/Vascular: Yes: CAD, CHF (normal ejection fraction; poor LV compliance; no valvular abnormalities), HTN, Hyperlipdemia. No: AFIB, Aneurysm, Aortic Insufficiency, Aortic Stenosis, Deep Vein Thrombosis, [place], Mitral Insufficiency, Mitral Stenosis, Murmur, Pulmonary Hypertension, Other Gastrointestinal: Yes: GERD, GI Bleed. No: Constipation, Crohn's Disease, Diverticulitis, Diverticulosis, Esophageal Varices, Gastritis, Hemorrhoids, Hiatal Hernia, Inflamatory Bowel Disease, Irritable Bowel Disease, Pancreatitis , Peptic Ulcer Disease, Ulcerative Colitis, Other Renal/: Yes: Renal Failure, Hemodialysis (ESRD on HD MWF via L arm AVF) Psych: Yes: Anxiety Musculoskeletal: Yes: Other (left metatarsal amputation). No: Bursitis, Chronic low back pain, Hemiparesis, Hemiplegia, Osteoarthritis, Paraplegia Rheumatology: Yes: Gout Endocrine: Yes: Diabetes Mellitus. No: Mickey's Disease, [place]'s Disease, Diabetes Insipidus, Hyperparathyroidism, Hyperthyroidism, Hypothyroidism, Osteopenia, SIADH, Other Additional Medical History: as above in HPI; L eye blindness; on renal transplant list at [facility]. bilateral detached retinas - Past Surgical History Past Surgical History: Yes: Amputation (Left Transmetatarsal), AV Fistula/Graft , CABG (05/2010), Stent (s/p cardiac cath with stent placement). No: None, AAA Repair, AICD, Appendectomy, Arthrosocopy, Bariatric Surgery, Breast Biopsy, Bypass, Carotid Endarterectomy, Cataract Removal, Cholecystectomy, Colectomy, Colonoscopy, Colostomy, Craniotomy, , Cystectomy, Hernia Repair, Hysterectomy, Ileal Conduit, Ileosotomy, Joint Replacement, Kidney Transplant, Laminectomy, Liver Transplant, Mastectomy, Nephrectomy, Oopherectomy, Orchiectomy, Permanent Pacemaker, Prostatectomy, Splenectomy, Thoracotomy, TURP , Tonsillectomy, Tubal Ligation, Upper Endoscopy, Valve Replacement, Vasectomy, Vein Stripping/Ligation - Alcohol/Substance Use Hx Alcohol Use: No History of Substance Use: reports: None - Smoking History Smoking history: Former smoker Have you smoked in the past 12 months: No Aproximately how many cigarettes per day: 2 If you are a former smoker, when did you quit?: 1989 - Social History Usual Living Arrangement: With Spouse ADL: Independent 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 History of Recent Travel: No Home Medications - Allergies Allergies/Adverse Reactions: Allergies Allergy/AdvReac Type Severity Reaction Status Date / Time No Known Drug Allergies Allergy Verified 12/09/16 08:28 - Home Medications Home Medications: Ambulatory Orders Allopurinol [Zyloprim -] 100 mg PO DAILY 11/28/16 Atorvastatin Ca [Lipitor] 80 mg PO HS 11/28/16 Cinacalcet HCl [Sensipar] 30 mg PO DAILY 11/28/16 Ferrous Sulfate 325 mg PO DAILY 11/28/16 Furosemide [Lasix] 80 mg PO DAILY 11/28/16 Hydralazine HCl 50 mg PO DAILY 11/28/16 Lisinopril 5 mg PO DAILY 11/28/16 Magnesium Oxide [Mag-Ox -] 400 mg PO TID 11/28/16 Nitroglycerin 0.4 mg SL DAILY PRN 11/28/16 Omeprazole 20 mg PO DAILY 11/28/16 Sevelamer Carbonate [Renvela] 800 mg NR TID 11/28/16 Family Disease History - Family Disease History Family Disease History: Diabetes: Father, Mother, Other: Father, Mother Review of Systems - Review of Systems Constitutional: reports: No Symptoms Eyes: reports: No Symptoms HENT: reports: No Symptoms Neck: reports: No Symptoms Cardiovascular: reports: No Symptoms Respiratory: reports: Cough, SOB, SOB on Exertion, Other Gastrointestinal: reports: No Symptoms Genitourinary: reports: No Symptoms Musculoskeletal: reports: No Symptoms Integumentary: reports: No Symptoms Neurological: reports: No Symptoms Endocrine: reports: No Symptoms Hematology/Lymphatic: reports: No Symptoms Psychiatric: reports: No Symptoms Physical Exam Vital Signs: Vital Signs Temperature 98.0 F 12/09/16 08:24 Pulse Rate 111 H 12/09/16 08:24 Respiratory Rate 26 H 12/09/16 08:24 Blood Pressure 165/90 12/09/16 08:24 O2 Sat by Pulse Oximetry (%) 93 L 12/09/16 08:24 Constitutional: Yes: Well Nourished, No Distress, Calm Eyes: Yes: Conjunctiva Clear Cardiovascular: Yes: Regular Rate and Rhythm Respiratory: Yes: CTA Bilaterally, Poor Air Entry, Rales, Other (bilateral) Gastrointestinal: Yes: Normal Bowel Sounds, Soft Musculoskeletal: Yes: WNL Extremities: Yes: Other Neurological: Yes: Alert, Oriented Imaging - Results Chest X-ray: Report Reviewed, Image Reviewed Assessment/Plan Problem List - Problems (1) Anemia Code(s): D64.9 - ANEMIA, UNSPECIFIED Qualifiers: Anemia type: due to chronic kidney disease (2) CHF exacerbation Code(s): I50.9 - HEART FAILURE, UNSPECIFIED (3) ESRD (end stage renal disease) on dialysis Code(s): N18.6 - END STAGE RENAL DISEASE Z99.2 - DEPENDENCE ON RENAL DIALYSIS (4) COPD exacerbation Code(s): J44.1 - CHRONIC OBSTRUCTIVE PULMONARY DISEASE W (ACUTE) EXACERBATION (5) Diabetes mellitus Code(s): E11.9 - TYPE 2 DIABETES MELLITUS WITHOUT COMPLICATIONS Qualifiers: Diabetes mellitus type: type 2 Diabetes mellitus complication status: with kidney complications Diabetes mellitus complication detail: with chronic kidney disease (6) Hypertension Code(s): I10 - ESSENTIAL (PRIMARY) HYPERTENSION Qualifiers: Hypertension type: essential hypertension Qualified Code(s): I10 - Essential (primary) hypertension; I10 - Essential (primary) hypertension; I10 - Essential (primary) hypertension (7) Chronic osteomyelitis of cervical spine Code(s): M46.22 - OSTEOMYELITIS OF [place], CERVICAL REGION (8) CAD (coronary artery disease) Code(s): I25.10 - ATHSCL HEART DISEASE OF [place] CORONARY ARTERY W/O ANG PCTRS (9) Bacteremia due to Gram-positive bacteria Code(s): A49.9 - BACTERIAL INFECTION, UNSPECIFIED (10) MRSA (methicillin resistant staph aureus) culture positive Code(s): Z22.322 - CARRIER OR SUSPECTED CARRIER OF METHICILLIN RESIS STAPH plan patient already on vanco will add cefipime dialysis rest as per primary
[2016-12-09] MEDS ORDERED: FUROSEMIDE 100 MG/10 ML INJECTABLE VIAL IVPB SCH (15:15)
[2016-12-09] MEDS ORDERED: VANCOMYCIN 1,000 MG in DEXTROSE 5%-WATER - 250 ML IVPB ONE (17:00)
[2016-12-09] MEDS ORDERED: EPOETIN ALFA 20,000 UNIT/1 ML VIAL IVPUSH ONE (17:00)
[2016-12-09 17:40] LABS: BASOPHIL 0.7 % (0-2.0); EOSINOPHIL 3.7 % (0-4.5); MCH 29.6 pg (25.7-33.7); MCHC 32.5 g/dl (32.0-35.9); MEAN CELL VOLUME 91.1 fl (80-96); MEAN PLT VOLUME 7.8 fl (7.5-11.1); NEUTROPHILS 82.5 % (42.8-82.8); PLATELET COUNT 397 K/MM3 (134-434); RDW 15.7 % (11.9-15.9)
[2016-12-09 18:05] LABS: ALBUMIN 2.5 g/dl (3.4-5.0); ANION GAP 15 (8-16); BILIRUBIN,TOTAL 0.4 mg/dL (0.2-1.0); CALCIUM 7.9 mg/dL (8.5-10.1); CO2 21 mmol/L (21-32); GLUCOSE,RANDOM 286 mg/dL (74-106); SGOT/AST 8 U/L (15-37); SGPT/ALT 13 U/L (12-78); TOT PROT 7.7 g/dl (6.4-8.2)
[2016-12-09 18:10] LABS: ALK PHOS 216 U/L (45-117)
[2016-12-09 18:17] LABS: CREATININE 8.2 mg/dL (0.7-1.3)
--- NOTE | 2016-12-09 21:17 | HP ---
Admitting History and Physical - Primary Care Physician PCP: Dr stanislav Pickett([place]) - Admission History of Present Illness: Patient is a 51 y.o. with a PMH of cervical osteomyelitis (recently discharged from our facility, on Vancomycin and Gentamycin), hypertension, CHF (ECHO 2015: borderline reduced LVEF with borderline global hypokinesis; diastolic dysfunction), silent [place] s/p CABG x 2 vessels (2010), cardiac stent (2013), ESRD (on Dialysis T,R,S), anemia and hyperlipidema as well as an extended ICU admission for pneumonia at an outside institution in December 2015 presents c/o of acute onset of shortness of breath. Patient states he was awakened from sleep with shortness of breath. Patient endorses pleuritic chest pain, as well as intermittent non-productive cough and a few episodes of yellowish emesis. Patient denies any subjective fever, nausea, abdominal pain, or symptoms. Patient's @ bedside note patient had a two month hospital admission at an outside institution for pneumonia last year History Source: Patient Limitations to Obtaining History: No Limitations - Past Medical History Cardiovascular: Yes: CAD, CHF (normal ejection fraction; poor LV compliance; no valvular abnormalities), HTN, Hyperlipdemia. No: AFIB, Aneurysm, Aortic Insufficiency, Aortic Stenosis, Deep Vein Thrombosis, SD, Mitral Insufficiency, Mitral Stenosis, Murmur, Pulmonary Hypertension, Other Gastrointestinal: Yes: GERD, GI Bleed. No: Constipation, Crohn's Disease, Diverticulitis, Diverticulosis, Esophageal Varices, Gastritis, Hemorrhoids, Hiatal Hernia, Inflamatory Bowel Disease, Irritable Bowel Disease, Pancreatitis , Peptic Ulcer Disease, Ulcerative Colitis, Other Renal/: Yes: Renal Failure, Hemodialysis (ESRD on HD MWF via L arm AVF) Heme/Onc: No: Anemia, B12 Deficiency, Bleeding Disorder, Cancer, Current Chemotherapy, Current Radiation Therapy, Hemochromatosis, Hypercoaguable State, Myeloproliferative Synd, Sickle Cell Disease, Sickle Cell Trait, Thrombocytopenia, Other Psych: Yes: Anxiety Musculoskeletal: Yes: Other (left metatarsal amputation). No: Bursitis, Chronic low back pain, Hemiparesis, Hemiplegia, Osteoarthritis, Paraplegia Rheumatology: Yes: Gout Endocrine: Yes: Diabetes Mellitus. No: Mickey's Disease, [place]'s Disease, Diabetes Insipidus, Hyperparathyroidism, Hyperthyroidism, Hypothyroidism, Osteopenia, SIADH, Other - Past Surgical History Past Surgical History: Yes: Amputation (Left Transmetatarsal), AV Fistula/Graft , CABG (05/2010), Stent (s/p cardiac cath with stent placement). No: None, AAA Repair, AICD, Appendectomy, Arthrosocopy, Bariatric Surgery, Breast Biopsy, Bypass, Carotid Endarterectomy, Cataract Removal, Cholecystectomy, Colectomy, Colonoscopy, Colostomy, Craniotomy, , Cystectomy, Hernia Repair, Hysterectomy, Ileal Conduit, Ileosotomy, Joint Replacement, Kidney Transplant, Laminectomy, Liver Transplant, Mastectomy, Nephrectomy, Oopherectomy, Orchiectomy, Permanent Pacemaker, Prostatectomy, Splenectomy, Thoracotomy, TURP , Tonsillectomy, Tubal Ligation, Upper Endoscopy, Valve Replacement, Vasectomy, Vein Stripping/Ligation - Smoking History Smoking history: Former smoker Have you smoked in the past 12 months: No Aproximately how many cigarettes per day: 2 If you are a former smoker, when did you quit?: 1989 - Alcohol/Substance Use Hx Alcohol Use: No History of Substance Use: reports: None - Social History ADL: Independent 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 History of Recent Travel: No Home Medications - Allergies Allergies/Adverse Reactions: Allergies Allergy/AdvReac Type Severity Reaction Status Date / Time No Known Drug Allergies Allergy Verified 12/09/16 08:28 - Home Medications Home Medications: Ambulatory Orders Allopurinol [Zyloprim -] 100 mg PO DAILY 11/28/16 Atorvastatin Ca [Lipitor] 80 mg PO HS 11/28/16 Cinacalcet HCl [Sensipar] 30 mg PO DAILY 11/28/16 Ferrous Sulfate 325 mg PO DAILY 11/28/16 Furosemide [Lasix] 80 mg PO DAILY 11/28/16 Hydralazine HCl 50 mg PO DAILY 11/28/16 Lisinopril 5 mg PO DAILY 11/28/16 Magnesium Oxide [Mag-Ox -] 400 mg PO TID 11/28/16 Nitroglycerin 0.4 mg SL DAILY PRN 11/28/16 Omeprazole 20 mg PO DAILY 11/28/16 Sevelamer Carbonate [Renvela] 800 mg NR TID 11/28/16 Family Disease History - Family Disease History Family Disease History: Diabetes: Father, Mother, Other: Father, Mother Review of Systems - Review of Systems Constitutional: reports: Malaise, Weakness Eyes: reports: Blurred Vision HENT: reports: Difficult Swallowing Neck: reports: No Symptoms Cardiovascular: reports: No Symptoms Respiratory: reports: Cough, SOB Gastrointestinal: reports: Nausea Genitourinary: reports: No Symptoms Musculoskeletal: reports: No Symptoms, Back Pain, Muscle Pain Neurological: reports: No Symptoms Physical Examination Vital Signs: Vital Signs Temperature 98.0 F 12/09/16 08:24 Pulse Rate 101 H 12/09/16 19:30 Respiratory Rate 18 12/09/16 19:30 Blood Pressure 193/95 12/09/16 19:30 O2 Sat by Pulse Oximetry (%) 93 L 12/09/16 08:24 Labs: CBC, BMP 12/09/16 17:15 12/09/16 17:15 Assessment/Plan (1) Anemia Code(s): D64.9 - ANEMIA, UNSPECIFIED Qualifiers: Anemia type: due to chronic kidney disease S/P One Unit of PRBC (2) CHF exacerbation Code(s): I50.9 - HEART FAILURE, UNSPECIFIED (3) ESRD (end stage renal disease) on dialysis Code(s): N18.6 - END STAGE RENAL DISEASE Z99.2 - DEPENDENCE ON RENAL DIALYSIS (4) COPD exacerbation Code(s): J44.1 - CHRONIC OBSTRUCTIVE PULMONARY DISEASE W (ACUTE) EXACERBATION with Acute Bronchitis Zithromax 500 PO Daily 7 days (5) Diabetes mellitus Code(s): E11.9 - TYPE 2 DIABETES MELLITUS WITHOUT COMPLICATIONS Qualifiers: Diabetes mellitus type: type 2 Diabetes mellitus complication status: with kidney complications Diabetes mellitus complication detail: with chronic kidney disease (6) Hypertension Code(s): I10 - ESSENTIAL (PRIMARY) HYPERTENSION Qualifiers: Hypertension type: essential hypertension Qualified Code(s): I10 - Essential (primary) hypertension; I10 - Essential (primary) hypertension; I10 - Essential (primary) hypertension (7) Chronic osteomyelitis of cervical spine Code(s): M46.22 - OSTEOMYELITIS OF [place], CERVICAL REGION H/O Rx for 6 weks at [facility] (8) CAD (coronary artery disease) Code(s): I25.10 - ATHSCL HEART DISEASE OF [place] CORONARY ARTERY W/O ANG PCTRS (9) Bacteremia due to Gram-positive bacteria Code(s): A49.9 - BACTERIAL INFECTION, UNSPECIFIED (10) MRSA (methicillin resistant staph aureus) culture positive Code(s): Z22.322 - CARRIER OR SUSPECTED CARRIER OF METHICILLIN RESIS STAPH Lt Foot MTA site infection
[2016-12-09] MEDS ORDERED: NITROGLYCERIN SUBLINGUAL 1/150 0.4 MG TAB SL ONE (21:41)
[2016-12-09] MEDS: ATORVASTATIN CA 80 MG TABLET (FP) PO SCH (21:43)
[2016-12-09] MEDS: hydrALAZINE HCL 25 MG TABLET (FP) PO SCH (21:43)
[2016-12-09] MEDS: MAGNESIUM OXIDE 400 MG TABLET (FP) PO SCH (21:43)
[2016-12-09] MEDS ORDERED: AZITHROMYCIN 250 MG TABLET PO SCH (22:00)
[2016-12-09] MEDS ORDERED: CEFEPIME HCL 1 GM VIAL (RESTRICTED TO ID) IVPB SCH (22:00)
--- NOTE | 2016-12-09 22:07 | EKG ---
Test Reason : Blood Pressure : / mmHG Vent. Rate : 095 BPM Atrial Rate : 095 BPM P-R Int : 172 ms QRS Dur : 086 ms QT Int : 394 ms P-R-T Axes : 056 023 064 degrees QTc Int : 495 ms NORMAL SINUS RHYTHM POSSIBLE LEFT ATRIAL ENLARGEMENT ANTEROSEPTAL INFARCT (CITED ON OR BEFORE 13-DEC-2009) ABNORMAL ECG WHEN COMPARED WITH ECG OF 29-NOV-2016 10:25, NO SIGNIFICANT CHANGE WAS FOUND REPEAT EKG IF CLINICALLY INDICATED Confirmed by MICKEY KANG MD ([id number]) on 12/09/2016 10:06:52 PM Referred By: Confirmed By:MICKEY KANG MD
[2016-12-10] MEDS: MUPIROCIN CA 2% TOPICAL CREAM 15 GM TUBE TP SCH ×3 (00:01→22:25)
[2016-12-10] MEDS ORDERED: NITROGLYCERIN SUBLINGUAL 1/150 0.4 MG TAB SL PRN (00:41)
[2016-12-10 02:26] LABS: URINE APPEARANCE CLEAR; URINE BILIRUBIN NEGATIVE (NEGATIVE); URINE BLOOD NEGATIVE (NEGATIVE); URINE COLOR LTYELLOW; URINE GLUCOSE (UA) 3+ (NEGATIVE); URINE KETONE NEGATIVE (NEGATIVE); URINE NITRITE NEGATIVE (NEGATIVE); URINE UROBILINOGEN NEGATIVE mg/dL (0.2-1.0)
[2016-12-10 02:29] LABS: URINE PROTEIN 3+ (NEGATIVE)
[2016-12-10] MEDS: ALBUTEROL SO4 2.5/IPRATROPIUM 0.5 INH SOL 3 ML VIAL.NEB. NEB SCH ×6 (02:30→21:42)
[2016-12-10 02:33] LABS: URINE BACTERIA RARE /hpf (NONE SEEN); URINE MUCUS RARE; URINE RBC <1 /hpf (0-3); URINE WBC 5 /hpf (3-5)
[2016-12-10] MEDS: INSULIN (NOVOLOG) ASPART 100 UNITS/ML 10ML VIAL SQ SCH ×3 (06:32→17:31)
[2016-12-10 07:39] LABS: BASOPHIL 1.2 % (0-2.0); MCH 30.3 pg (25.7-33.7); MCHC 32.9 g/dl (32.0-35.9); MEAN CELL VOLUME 91.9 fl (80-96); NEUTROPHILS 74.8 % (42.8-82.8); PLATELET COUNT 335 K/MM3 (134-434); RDW 15.1 % (11.9-15.9)
[2016-12-10] MEDS: CEFEPIME 0.5 GM in DEXTROSE 5%-WATER - 50 ML IVPB SCH ×2 (08:08→12:15)
[2016-12-10 08:26] LABS: ANION GAP 8 (8-16); CO2 31 mmol/L (21-32); GLUCOSE,RANDOM 275 mg/dL (74-106)
[2016-12-10 08:27] LABS: PHOSPHOROUS 3.7 mg/dL (2.5-4.9)
[2016-12-10] MEDS ORDERED: PT OWN MED DRAWER 7, Y5N ONE ×2 (09:06→22:24)
[2016-12-10] MEDS: MAGNESIUM OXIDE 400 MG TABLET (FP) PO SCH ×2 (09:21→22:18)
[2016-12-10] MEDS: ALLOPURINOL 100 MG TABLET (FP) PO SCH (09:21)
[2016-12-10] MEDS: SEVELAMER CARBONATE 800 MG TAB (FP) PO SCH ×3 (09:21→17:31)
[2016-12-10] MEDS: FUROSEMIDE 40 MG/4 ML INJECTABLE VIAL IVPUSH SCH (09:21)
[2016-12-10] MEDS: LISINOPRIL 5 MG TABLET (FP) PO SCH (09:21)
[2016-12-10] MEDS: hydrALAZINE HCL 25 MG TABLET (FP) PO SCH ×2 (09:21→22:18)
[2016-12-10] MEDS: CINACALCET HCL 30 MG TAB (FP) PO SCH (09:21)
[2016-12-10] MEDS ORDERED: AZITHROMYCIN 250 MG TABLET PO SCH (10:00)
[2016-12-10 10:05] LABS: URINE LEUK ESTERASE Negative (NEGATIVE)
--- NOTE | 2016-12-10 10:53 | PN ---
Progress Note, Physician History of Present Illness: Patient is a 51 y.o. with a PMH of MRSA, cervical osteomyelitis, hypertension, CHF (ECHO 04/11: diastolic dysfunction; normal LVEF), silent [place] s/p CABG x 2 vessels (2010), cardiac stent (2013), ESRD (on Dialysis T,R,S), anemia and hyperlipidema as well as an extended ICU admission for pneumonia at an outside institution in December 2015 presents c/o of acute onset of shortness of breath. Patient states he was awakened from sleep with shortness of breath. Patient endorses pleuritic chest pain, as well as intermittent non-productive cough and a few episodes of yellowish emesis. Patient denies any subjective fever, nausea, abdominal pain, or symptoms. Patient's @ bedside note patient had a two month hospital admission at an outside institution for pneumonia last year Surgical: L metarsal amputation (2009) CABG (2010) Allergies: NKDA PMD: Dr. Henrandez Surgical Brace Maker: Dr. Yina Coronel - Current Medication List Current Medications: Active Medications Albuterol/Ipratropium (Duoneb -) 1 amp NEB Q4HPO [facility] Stop: 12/16/16 21:59 Last Admin: 12/10/16 05:56 Dose: 1 amp Allopurinol (Zyloprim -) 100 mg PO DAILY [facility] Last Admin: 12/10/16 09:21 Dose: 100 mg Atorvastatin Calcium (Lipitor -) 80 mg PO HS [facility] Last Admin: 12/09/16 21:43 Dose: 80 mg Azithromycin (Zithromax -) 500 mg PO HS [facility] Last Admin: 12/10/16 00:00 Dose: 500 mg Cinacalcet (Sensipar -) 30 mg PO DAILY [facility] Last Admin: 12/10/16 09:21 Dose: 30 mg Furosemide (Lasix Injection -) 80 mg IVPUSH DAILY [facility] Last Admin: 12/10/16 09:21 Dose: 80 mg Hydralazine HCl (Apresoline -) 25 mg PO BID [facility] Last Admin: 12/10/16 09:21 Dose: 25 mg Cefepime HCl 0.5 gm/ Dextrose 50 mls @ 100 mls/hr IVPB DAILY [facility] Last Admin: 12/10/16 08:08 Dose: Not Given Insulin Aspart (Novolog Vial) 6 units SQ TIDAC [facility] Last Admin: 10/18/17 06:32 Dose: 6 units Insulin Detemir (Levemir Vial) 15 units SQ HS [facility] Last Admin: 12/10/16 00:00 Dose: 15 units Lisinopril (Prinivil) 5 mg PO DAILY [facility] Last Admin: 12/10/16 09:21 Dose: 5 mg Magnesium Oxide (Mag-Ox -) 400 mg PO BID [facility] Last Admin: 12/10/16 09:21 Dose: 400 mg Mupirocin (Bactroban 2% Cream -) 1 applic TP BID [facility] Last Admin: 12/10/16 09:21 Dose: 1 applic Nitroglycerin (Nitrostat -) 0.4 mg SL Q5M PRN PRN Reason: CHEST PAIN Sevelamer Carbonate (Renvela -) 800 mg PO TIDCM [facility] Last Admin: 12/10/16 09:21 Dose: 800 mg Sodium Chloride (Normal Saline -) 970 ml IV Q20M PRN PRN Reason: MAP<65mm Hg OR SBP <90 - Objective Vital Signs: Vital Signs Temperature 99 F 12/10/16 09:29 Pulse Rate 107 H 12/10/16 09:29 Respiratory Rate 19 12/10/16 09:29 Blood Pressure 182/93 12/10/16 09:29 O2 Sat by Pulse Oximetry (%) 99 12/10/16 09:28 Eyes: Yes: WNL, Conjunctiva Clear, EOM Intact HENT: Yes: WNL, Atraumatic, Normocephalic Neck: Yes: WNL, Supple, Trachea Midline Cardiovascular: Yes: WNL, Regular Rate and Rhythm Respiratory: Yes: WNL, Regular, CTA Bilaterally Gastrointestinal: Yes: WNL, Normal Bowel Sounds Genitourinary: Yes: WNL Musculoskeletal: Yes: WNL Extremities: Yes: Amputation Edema: No Integumentary: Yes: WNL Neurological: Yes: WNL, Alert, Oriented ...Motor Strength: WNL Psychiatric: Yes: WNL Labs: CBC, BMP 12/10/16 06:30 12/10/16 06:30 INR, PTT INR 1.16 (0.82-1.09) H 12/09/16 09:39 Assessment/Plan (1) CHF exacerbation Assessment/Plan: on hydralazine and lisinopril; F/u BUN/Cr, electrolytes, Is and Os, daily weight. For hemodialysis today. Code(s): I50.9 - HEART FAILURE, UNSPECIFIED (2) Diabetes mellitus Code(s): E11.9 - TYPE 2 DIABETES MELLITUS WITHOUT COMPLICATIONS Qualifiers: Diabetes mellitus type: type 2 Diabetes mellitus complication status: with kidney complications Diabetes mellitus complication detail: with chronic kidney disease (3) Elevated cholesterol Assessment/Plan: statin. Code(s): E78.0 - PURE HYPERCHOLESTEROLEMIA * DO NOT USE * (4) Anemia in ESRD (end-stage renal disease) Code(s): N18.6 - END STAGE RENAL DISEASE D63.1 - ANEMIA IN CHRONIC KIDNEY DISEASE (5) CAD (coronary artery disease) Code(s): I25.10 - ATHSCL HEART DISEASE OF [place] CORONARY ARTERY W/O ANG PCTRS (6) Depression Code(s): F32.9 - MAJOR DEPRESSIVE DISORDER, SINGLE EPISODE, UNSPECIFIED
--- NOTE | 2016-12-10 13:54 | PN ---
Progress Note, Physician Chief Complaint: ESRD/ Volume overload COPD excerbation History of Present Illness: Patient is a 51 y.o. with a PMH of MRSA, cervical osteomyelitis, hypertension, CHF (ECHO 04/11: diastolic dysfunction; normal LVEF), silent [place] s/p CABG x 2 vessels (2010), cardiac stent (2013), ESRD (on Dialysis T,R,S), anemia and hyperlipidema as well as an extended ICU admission for pneumonia at an outside institution in December 2015 presents c/o of acute onset of shortness of breath. Patient states he was awakened from sleep with shortness of breath. Patient endorses pleuritic chest pain, as well as intermittent non-productive cough and a few episodes of yellowish emesis. Patient denies any subjective fever, nausea, abdominal pain, or symptoms. - Current Medication List Current Medications: Active Medications Albuterol/Ipratropium (Duoneb -) 1 amp NEB Q4HPO [facility] Stop: 12/16/16 21:59 Last Admin: 12/10/16 05:56 Dose: 1 amp Allopurinol (Zyloprim -) 100 mg PO DAILY [facility] Last Admin: 12/10/16 09:21 Dose: 100 mg Atorvastatin Calcium (Lipitor -) 80 mg PO [facility] Last Admin: 12/09/16 21:43 Dose: 80 mg Azithromycin (Zithromax -) 500 mg PO [facility] Last Admin: 12/10/16 00:00 Dose: 500 mg Cinacalcet (Sensipar -) 30 mg PO DAILY [facility] Last Admin: 12/10/16 09:21 Dose: 30 mg Furosemide (Lasix Injection -) 80 mg IVPUSH DAILY [facility] Last Admin: 12/10/16 09:21 Dose: 80 mg Hydralazine HCl (Apresoline -) 25 mg PO BID [facility] Last Admin: 12/10/16 09:21 Dose: 25 mg Cefepime HCl 0.5 gm/ Dextrose 50 mls @ 100 mls/hr IVPB DAILY [facility] Last Admin: 12/10/16 12:15 Dose: 100 mls/hr Insulin Aspart (Novolog Vial) 6 units SQ TIDAC [facility] Last Admin: 12/10/16 12:15 Dose: 6 units Insulin Detemir (Levemir Vial) 15 units SQ [facility] Last Admin: 12/10/16 00:00 Dose: 15 units Lisinopril (Prinivil) 5 mg PO DAILY [facility] Last Admin: 12/10/16 09:21 Dose: 5 mg Magnesium Oxide (Mag-Ox -) 400 mg PO BID [facility] Last Admin: 12/10/16 09:21 Dose: 400 mg Mupirocin (Bactroban 2% Cream -) 1 applic TP BID [facility] Last Admin: 12/10/16 09:21 Dose: 1 applic Nitroglycerin (Nitrostat -) 0.4 mg SL Q5M PRN PRN Reason: CHEST PAIN Sevelamer Carbonate (Renvela -) 800 mg PO TIDCM [facility] Last Admin: 12/10/16 12:17 Dose: 800 mg Sodium Chloride (Normal Saline -) 970 ml IV Q20M PRN PRN Reason: MAP<65mm Hg OR SBP <90 - Objective Vital Signs: Vital Signs Temperature 99.6 F 12/10/16 13:45 Pulse Rate 110 H 12/10/16 13:45 Respiratory Rate 19 12/10/16 09:29 Blood Pressure 148/85 12/10/16 13:45 O2 Sat by Pulse Oximetry (%) 99 12/10/16 09:28 Constitutional: Yes: No Distress Eyes: Yes: EOM Intact, PERRL HENT: Yes: Atraumatic, Normocephalic Neck: Yes: Supple, Trachea Midline Cardiovascular: Yes: Regular Rate and Rhythm, S1, S2 Respiratory: Yes: Regular, CTA Bilaterally Gastrointestinal: Yes: Normal Bowel Sounds, Soft Extremities: Yes: Other (Left MTA) Neurological: Yes: Alert, Oriented, Cran Nerves II-XII Intact Labs: CBC, BMP 12/10/16 06:30 12/10/16 06:30 INR, PTT INR 1.16 (0.82-1.09) H 12/09/16 09:39 Problem List - Problems (1) Anemia Code(s): D64.9 - ANEMIA, UNSPECIFIED Qualifiers: Anemia type: due to chronic kidney disease (2) CHF exacerbation Code(s): I50.9 - HEART FAILURE, UNSPECIFIED (3) ESRD (end stage renal disease) on dialysis Code(s): N18.6 - END STAGE RENAL DISEASE Z99.2 - DEPENDENCE ON RENAL DIALYSIS (4) COPD exacerbation Code(s): J44.1 - CHRONIC OBSTRUCTIVE PULMONARY DISEASE W (ACUTE) EXACERBATION (5) Diabetes mellitus Code(s): E11.9 - TYPE 2 DIABETES MELLITUS WITHOUT COMPLICATIONS Qualifiers: Diabetes mellitus type: type 2 Diabetes mellitus complication status: with kidney complications Diabetes mellitus complication detail: with chronic kidney disease (6) Hypertension Code(s): I10 - ESSENTIAL (PRIMARY) HYPERTENSION Qualifiers: Hypertension type: essential hypertension Qualified Code(s): I10 - Essential (primary) hypertension; I10 - Essential (primary) hypertension; I10 - Essential (primary) hypertension (7) Chronic osteomyelitis of cervical spine Code(s): M46.22 - OSTEOMYELITIS OF [place], CERVICAL REGION (8) CAD (coronary artery disease) Code(s): I25.10 - ATHSCL HEART DISEASE OF [place] CORONARY ARTERY W/O ANG PCTRS (9) Bacteremia due to Gram-positive bacteria Code(s): A49.9 - BACTERIAL INFECTION, UNSPECIFIED (10) MRSA (methicillin resistant staph aureus) culture positive Code(s): Z22.322 - CARRIER OR SUSPECTED CARRIER OF METHICILLIN RESIS STAPH Assessment/Plan (1) Anemia Code(s): D64.9 - ANEMIA, UNSPECIFIED Qualifiers: Anemia type: due to chronic kidney disease S/P One Unit of PRBC (2) CHF exacerbation Code(s): I50.9 - HEART FAILURE, UNSPECIFIED (3) ESRD (end stage renal disease) on dialysis Code(s): N18.6 - END STAGE RENAL DISEASE Z99.2 - DEPENDENCE ON RENAL DIALYSIS (4) COPD exacerbation Code(s): J44.1 - CHRONIC OBSTRUCTIVE PULMONARY DISEASE W (ACUTE) EXACERBATION with Acute Bronchitis Zithromax 500 PO Daily 7 days (5) Diabetes mellitus Code(s): E11.9 - TYPE 2 DIABETES MELLITUS WITHOUT COMPLICATIONS Qualifiers: Diabetes mellitus type: type 2 Diabetes mellitus complication status: with kidney complications Diabetes mellitus complication detail: with chronic kidney disease (6) Hypertension Code(s): I10 - ESSENTIAL (PRIMARY) HYPERTENSION Qualifiers: Hypertension type: essential hypertension Qualified Code(s): I10 - Essential (primary) hypertension; I10 - Essential (primary) hypertension; I10 - Essential (primary) hypertension (7) Chronic osteomyelitis of cervical spine Code(s): M46.22 - OSTEOMYELITIS OF [place], CERVICAL REGION H/[facility] (8) CAD (coronary artery disease) Code(s): I25.10 - ATHSCL HEART DISEASE OF [place] CORONARY ARTERY W/O ANG PCTRS (9) Bacteremia due to Gram-positive bacteria Code(s): A49.9 - BACTERIAL INFECTION, UNSPECIFIED (10) MRSA (methicillin resistant staph aureus) culture positive Code(s): Z22.322 - CARRIER OR SUSPECTED CARRIER OF METHICILLIN RESIS STAPH Lt Foot MTA site infection
--- NOTE | 2016-12-10 14:27 | PN ---
Progress Note, Physician History of Present Illness: stable doing well - Current Medication List Current Medications: Active Medications Albuterol/Ipratropium (Duoneb -) 1 amp NEB Q4HPO [facility] Stop: 12/16/16 21:59 Last Admin: 12/10/16 10:13 Dose: 1 amp Allopurinol (Zyloprim -) 100 mg PO DAILY [facility] Last Admin: 12/10/16 09:21 Dose: 100 mg Atorvastatin Calcium (Lipitor -) 80 mg PO [facility] Last Admin: 12/09/16 21:43 Dose: 80 mg Azithromycin (Zithromax -) 500 mg PO [facility] Last Admin: 12/10/16 00:00 Dose: 500 mg Cinacalcet (Sensipar -) 30 mg PO DAILY [facility] Last Admin: 12/10/16 09:21 Dose: 30 mg Furosemide (Lasix Injection -) 80 mg IVPUSH DAILY [facility] Last Admin: 12/10/16 09:21 Dose: 80 mg Hydralazine HCl (Apresoline -) 25 mg PO BID [facility] Last Admin: 12/10/16 09:21 Dose: 25 mg Cefepime HCl 0.5 gm/ Dextrose 50 mls @ 100 mls/hr IVPB DAILY [facility] Last Admin: 12/10/16 12:15 Dose: 100 mls/hr Insulin Aspart (Novolog Vial) 6 units SQ TIDAC [facility] Last Admin: 12/10/16 12:15 Dose: 6 units Insulin Detemir (Levemir Vial) 15 units SQ HS [facility] Last Admin: 12/10/16 00:00 Dose: 15 units Lisinopril (Prinivil) 5 mg PO DAILY [facility] Last Admin: 12/10/16 09:21 Dose: 5 mg Magnesium Oxide (Mag-Ox -) 400 mg PO BID [facility] Last Admin: 12/10/16 09:21 Dose: 400 mg Mupirocin (Bactroban 2% Cream -) 1 applic TP BID [facility] Last Admin: 12/10/16 09:21 Dose: 1 applic Nitroglycerin (Nitrostat -) 0.4 mg SL Q5M PRN PRN Reason: CHEST PAIN Sevelamer Carbonate (Renvela -) 800 mg PO TIDCM [facility] Last Admin: 12/10/16 12:17 Dose: 800 mg Sodium Chloride (Normal Saline -) 970 ml IV Q20M PRN PRN Reason: MAP<65mm Hg OR SBP <90 - Objective Vital Signs: Vital Signs Temperature 99.6 F 12/10/16 13:45 Pulse Rate 110 H 12/10/16 13:45 Respiratory Rate 19 12/10/16 09:29 Blood Pressure 148/85 12/10/16 13:45 O2 Sat by Pulse Oximetry (%) 96 12/10/16 10:13 Constitutional: Yes: No Distress, Calm Cardiovascular: Yes: Regular Rate and Rhythm Respiratory: Yes: Regular, CTA Bilaterally Gastrointestinal: Yes: Normal Bowel Sounds, Soft Musculoskeletal: Yes: Other Extremities: Yes: Other Wound/Incision: Yes: Dressing Dry and Intact Neurological: Yes: Alert, Oriented Psychiatric: Yes: Alert, Oriented Labs: CBC, BMP 12/10/16 06:30 12/10/16 06:30 INR, PTT INR 1.16 (0.82-1.09) H 12/09/16 09:39 Assessment/Plan Problem List - Problems (1) Anemia Code(s): D64.9 - ANEMIA, UNSPECIFIED Qualifiers: Anemia type: due to chronic kidney disease (2) CHF exacerbation Code(s): I50.9 - HEART FAILURE, UNSPECIFIED (3) ESRD (end stage renal disease) on dialysis Code(s): N18.6 - END STAGE RENAL DISEASE Z99.2 - DEPENDENCE ON RENAL DIALYSIS (4) COPD exacerbation Code(s): J44.1 - CHRONIC OBSTRUCTIVE PULMONARY DISEASE W (ACUTE) EXACERBATION (5) Diabetes mellitus Code(s): E11.9 - TYPE 2 DIABETES MELLITUS WITHOUT COMPLICATIONS Qualifiers: Diabetes mellitus type: type 2 Diabetes mellitus complication status: with kidney complications Diabetes mellitus complication detail: with chronic kidney disease (6) Hypertension Code(s): I10 - ESSENTIAL (PRIMARY) HYPERTENSION Qualifiers: Hypertension type: essential hypertension Qualified Code(s): I10 - Essential (primary) hypertension; I10 - Essential (primary) hypertension; I10 - Essential (primary) hypertension (7) Chronic osteomyelitis of cervical spine Code(s): M46.22 - OSTEOMYELITIS OF [place], CERVICAL REGION (8) CAD (coronary artery disease) Code(s): I25.10 - ATHSCL HEART DISEASE OF [place] CORONARY ARTERY W/O ANG PCTRS (9) Bacteremia due to Gram-positive bacteria Code(s): A49.9 - BACTERIAL INFECTION, UNSPECIFIED (10) MRSA (methicillin resistant staph aureus) culture positive Code(s): Z22.322 - CARRIER OR SUSPECTED CARRIER OF METHICILLIN RESIS STAPH plan patient already on vanco will stop cefipime tomorrow
--- NOTE | 2016-12-10 18:16 | PN ---
Progress Note (short form) - Note Progress Note: Renal Follow up for ESRD on HD Pt seen and examined at the bedside awake and alert has mild sob no chest pain no fever, chills feels better from yesterday Vital Signs Temperature 99.6 F 12/10/16 13:45 Pulse Rate 110 H 12/10/16 13:45 Respiratory Rate 19 12/10/16 09:29 Blood Pressure 148/85 12/10/16 13:45 O2 Sat by Pulse Oximetry (%) 96 12/10/16 10:13 Intake & Output 12/07/16 12/08/16 12/09/16 12/10/16 23:59 23:59 23:59 23:59 Intake Total 300 1100 Output Total 250 100 Balance 50 1000 Weight 215 lb 210 lb NAD Awake and alert No JVD Tachycardic no M/R no rales Obese, mild distended Abd Trace to 1+ edema in the LE CBC, BMP 12/10/16 06:30 12/10/16 06:30 Current Medications Albuterol/Ipratropium (Duoneb -) 1 amp NEB Q4HPO [facility] Stop: 12/16/16 21:59 Last Admin: 12/10/16 14:55 Dose: 1 amp Allopurinol (Zyloprim -) 100 mg PO DAILY [facility] Last Admin: 12/10/16 09:21 Dose: 100 mg Atorvastatin Calcium (Lipitor -) 80 mg PO HS [facility] Last Admin: 12/09/16 21:43 Dose: 80 mg Azithromycin (Zithromax -) 500 mg PO HS [facility] Last Admin: 12/10/16 00:00 Dose: 500 mg Cinacalcet (Sensipar -) 30 mg PO DAILY [facility] Last Admin: 12/10/16 09:21 Dose: 30 mg Furosemide (Lasix Injection -) 80 mg IVPUSH DAILY [facility] Last Admin: 12/10/16 09:21 Dose: 80 mg Hydralazine HCl (Apresoline -) 25 mg PO BID [facility] Last Admin: 12/10/16 09:21 Dose: 25 mg Cefepime HCl 0.5 gm/ Dextrose 50 mls @ 100 mls/hr IVPB DAILY [facility] Last Admin: 12/10/16 12:15 Dose: 100 mls/hr Insulin Aspart (Novolog Vial) 6 units SQ TIDAC [facility] Last Admin: 12/10/16 17:31 Dose: 6 units Insulin Detemir (Levemir Vial) 15 units SQ HS [facility] Last Admin: 12/10/16 00:00 Dose: 15 units Lisinopril (Prinivil) 5 mg PO DAILY [facility] Last Admin: 12/10/16 09:21 Dose: 5 mg Magnesium Oxide (Mag-Ox -) 400 mg PO BID [facility] Last Admin: 12/10/16 09:21 Dose: 400 mg Mupirocin (Bactroban 2% Cream -) 1 applic TP BID [facility] Last Admin: 12/10/16 09:21 Dose: 1 applic Nitroglycerin (Nitrostat -) 0.4 mg SL Q5M PRN PRN Reason: CHEST PAIN Sevelamer Carbonate (Renvela -) 800 mg PO TIDCM [facility] Last Admin: 12/10/16 17:31 Dose: 800 mg Sodium Chloride (Normal Saline -) 970 ml IV Q20M PRN PRN Reason: MAP<65mm Hg OR SBP <90 A/P 51 year old Gentleman with PMhx of ESRD on HD (TTS at [facility]), Hypertension, CAD, PVD, DM2, Hx of paraspinal abcess recently admitted for Osteomylitis who presented with complaints of SOB. #SOB likely multifactorial secondary to CHF, Asthma/Reactive airway disease and Anemia s/p dialysis yesterday with 3kg UF and 1 prbc transfused offered UF today but pt deferred #ESRD on HD for HD tomorrow with UF as tolerated #Worsening Anemia will transfuse additional PRBC wit HD tomorrow if hgb less then 8 #Recent diagnosis of Osteomylitis continue Abx as per ID Thank you Will follow Antwan Hurley DO
--- NOTE | 2016-12-10 20:17 | CON.ENT ---
Consult Consult Specialty:: ENT Referred by:: Dr. Pickett Reason for Consultation:: nasal bleeding - History of Present Illness Chief Complaint: nasal bleeding History of Present Illness: Past hx: Patient is a 51 y.o. with a PMH of cervical osteomyelitis (recently discharged from our facility, on Vancomycin and Gentamycin), hypertension, CHF (ECHO 2015: borderline reduced LVEF with borderline global hypokinesis; diastolic dysfunction), silent [place] s/p CABG x 2 vessels (2010), cardiac stent (2013), ESRD (on Dialysis T,R,S), anemia and hyperlipidema as well as an extended ICU admission for pneumonia at an outside institution in December 2015 presents c/o of acute onset of shortness of breath. Patient states he was awakened from sleep with shortness of breath. Patient endorses pleuritic chest pain, as well as intermittent non-productive cough and a few episodes of yellowish emesis. Patient denies any subjective fever, nausea, abdominal pain, or symptoms. Patient's @ bedside note patient had a two month hospital admission at an outside institution for pneumonia last year pt has been using nasal oxygen for shortness of breath today notes some bleeding from right nostril has subsided prior bleeding but not persistent like this, denies distinct nasal intervention for epistaxis in past denies other nasal conditions including nasal allergies or sinus infections, denies nasal trauma by report pt had clots from nostril on contact isolation for MRSA - History Source History Provided By: Patient, Medical Record Limitations to Obtaining History: No Limitations - Past Medical History Cardio/Vascular: Yes: CAD, CHF (normal ejection fraction; poor LV compliance; no valvular abnormalities), HTN, Hyperlipdemia. No: AFIB, Aneurysm, Aortic Insufficiency, Aortic Stenosis, Deep Vein Thrombosis, LA, Mitral Insufficiency, Mitral Stenosis, Murmur, Pulmonary Hypertension, Other Gastrointestinal: Yes: GERD, GI Bleed. No: Constipation, Crohn's Disease, Diverticulitis, Diverticulosis, Esophageal Varices, Gastritis, Hemorrhoids, Hiatal Hernia, Inflamatory Bowel Disease, Irritable Bowel Disease, Pancreatitis , Peptic Ulcer Disease, Ulcerative Colitis, Other Renal/: Yes: Renal Failure, Hemodialysis (ESRD on HD MWF via L arm AVF) Psych: Yes: Anxiety Musculoskeletal: Yes: Other (left metatarsal amputation). No: Bursitis, Chronic low back pain, Hemiparesis, Hemiplegia, Osteoarthritis, Paraplegia Rheumatology: Yes: Gout Endocrine: Yes: Diabetes Mellitus. No: Broadway's Disease, [place]'s Disease, Diabetes Insipidus, Hyperparathyroidism, Hyperthyroidism, Hypothyroidism, Osteopenia, SIADH, Other Additional Medical History: as above in HPI; L eye blindness; on renal transplant list at [facility]. bilateral detached retinas - Past Surgical History Past Surgical History: Yes: Amputation (Left Transmetatarsal), AV Fistula/Graft , CABG (05/2010), Stent (s/p cardiac cath with stent placement). No: None, AAA Repair, AICD, Appendectomy, Arthrosocopy, Bariatric Surgery, Breast Biopsy, Bypass, Carotid Endarterectomy, Cataract Removal, Cholecystectomy, Colectomy, Colonoscopy, Colostomy, Craniotomy, , Cystectomy, Hernia Repair, Hysterectomy, Ileal Conduit, Ileosotomy, Joint Replacement, Kidney Transplant, Laminectomy, Liver Transplant, Mastectomy, Nephrectomy, Oopherectomy, Orchiectomy, Permanent Pacemaker, Prostatectomy, Splenectomy, Thoracotomy, TURP , Tonsillectomy, Tubal Ligation, Upper Endoscopy, Valve Replacement, Vasectomy, Vein Stripping/Ligation - Alcohol/Substance Use Hx Alcohol Use: No History of Substance Use: reports: None - Smoking History Smoking history: Former smoker Have you smoked in the past 12 months: No Aproximately how many cigarettes per day: 2 If you are a former smoker, when did you quit?: 1989 - Social History Usual Living Arrangement: With Spouse ADL: Independent 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 History of Recent Travel: No Home Medications - Allergies Allergies/Adverse Reactions: Allergies Allergy/AdvReac Type Severity Reaction Status Date / Time No Known Drug Allergies Allergy Verified 12/09/16 08:28 - Home Medications Home Medications: Ambulatory Orders Allopurinol [Zyloprim -] 100 mg PO DAILY 11/28/16 Atorvastatin Ca [Lipitor] 80 mg PO HS 11/28/16 Cinacalcet HCl [Sensipar] 30 mg PO DAILY 11/28/16 Ferrous Sulfate 325 mg PO DAILY 11/28/16 Furosemide [Lasix] 80 mg PO DAILY 11/28/16 Hydralazine HCl 50 mg PO DAILY 11/28/16 Lisinopril 5 mg PO DAILY 11/28/16 Magnesium Oxide [Mag-Ox -] 400 mg PO TID 11/28/16 Nitroglycerin 0.4 mg SL DAILY PRN 11/28/16 Omeprazole 20 mg PO DAILY 11/28/16 Sevelamer Carbonate [Renvela] 800 mg NR TID 11/28/16 Family Disease History - Family Disease History Family Disease History: Diabetes: Father, Mother, Other: Father, Mother Physical Exam-ENT Vital Signs: Vital Signs Temperature 97.8 F 12/10/16 18:00 Pulse Rate 104 H 12/10/16 18:00 Respiratory Rate 20 12/10/16 18:00 Blood Pressure 140/75 12/10/16 18:00 O2 Sat by Pulse Oximetry (%) 96 12/10/16 10:13 Constitutional: Yes: No Distress, Calm, Normal Voice Rap Artist: Yes: WNL Face: Yes: WNL Eyes: Yes: WNL Nose: Yes: Other (external normal, septum intact, dry blood on bilateral septal mucosa but no active bleeding or clot, nasal breathing satisfactory, no pus.) Oral/Pharynx: Yes: WNL, Other (no lesions, no blood in oropharynx, voice clear and strong, no stridor or respiratory distress) Outer Ear: Yes: WNL Respiratory: Yes: WNL Extremities: Yes: WNL, Other (AV shunt) Imaging - Results Chest X-ray: Report Reviewed, Image Reviewed Problem List - Problems (1) Epistaxis Assessment/Plan: acute onset this afternoon pt has hx prior epistaxis has improved since onset pt associates this bleeding to use of O2 via nasal cannulae presently no bleeding on exam Recommend: nasal saline spray - ordered if pt requires oxygen use humidified face mask, not nasal cannulae, which may dry nasal mucosa and increase likelihood of bleeding Pt advised that if bleeding recurs may place gauze in nose should also pinch nostrils firmly for 5 minutes if acute bleeding occurs overnight please notify hospitalist to evaluate primarily epistaxis precautions: food and beverages should not be hot, warm is ok bathwater should be warm, not hot pt should not blow nose if he has to sneeze, should keep mouth open if constipated should be treated, as Valsalva could precipitate bleeding hopefully will resolve without need for further intervention Thank you for consultation Pankaj Page MD FACS Code(s): R04.0 - EPISTAXIS
[2016-12-10] MEDS: DESMOPRESSIN 0.1 MG/ML NS SCH (22:18)
[2016-12-10] MEDS: ATORVASTATIN CA 80 MG TABLET (FP) PO SCH (22:18)
[2016-12-10] MEDS: AZITHROMYCIN 250 MG TABLET PO SCH ×2 (22:18)
[2016-12-10] MEDS: SODIUM CHLORIDE NASAL SPRAY 44 ML BOTTLE NS SCH (22:25)
[2016-12-10] MEDS: INSULIN DETEMIR 100 UNITS/ML MDV SQ SCH ×2 (22:32)
[2016-12-11] MEDS ORDERED: METOPROLOL TARTRATE 25 MG TABLET (FP) PO ONE (01:29)
[2016-12-11] MEDS: ALBUTEROL SO4 2.5/IPRATROPIUM 0.5 INH SOL 3 ML VIAL.NEB. NEB SCH ×6 (01:40→22:49)
[2016-12-11] MEDS: SODIUM CHLORIDE NASAL SPRAY 44 ML BOTTLE NS SCH ×3 (05:59→23:01)
[2016-12-11] MEDS: INSULIN (NOVOLOG) ASPART 100 UNITS/ML 10ML VIAL SQ SCH ×3 (06:38→17:43)
--- NOTE | 2016-12-11 07:07 | PN ---
Progress Note, Physician Chief Complaint: Pt alert; no chest pain, dyspnea, or palpitations. History of Present Illness: Patient is a 51 y.o. with a PMH of MRSA, cervical osteomyelitis, hypertension, CHF (ECHO 04/11: diastolic dysfunction; normal LVEF), silent [place] s/p CABG x 2 vessels (2010), cardiac stent (2013), ESRD (on Dialysis T,R,S), anemia and hyperlipidema as well as an extended ICU admission for pneumonia at an outside institution in December 2015 presents c/o of acute onset of shortness of breath. Patient states he was awakened from sleep with shortness of breath. Patient endorses pleuritic chest pain, as well as intermittent non-productive cough and a few episodes of yellowish emesis. Patient denies any subjective fever, nausea, abdominal pain, or symptoms. Patient's @ bedside note patient had a two month hospital admission at an outside institution for pneumonia last year Surgical: L metarsal amputation (2009) CABG (2010) Allergies: NKDA PMD: Dr. 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 Yina Coronel - Current Medication List Current Medications: Active Medications Albuterol/Ipratropium (Duoneb -) 1 amp NEB Q4HPO [facility] Stop: 12/16/16 21:59 Last Admin: 12/11/16 06:10 Dose: 1 amp Allopurinol (Zyloprim -) 100 mg PO DAILY [facility] Last Admin: 12/10/16 09:21 Dose: 100 mg Atorvastatin Calcium (Lipitor -) 80 mg PO [facility] Last Admin: 12/10/16 22:18 Dose: 80 mg Azithromycin (Zithromax -) 500 mg PO [facility] Last Admin: 12/10/16 22:18 Dose: 500 mg Cinacalcet (Sensipar -) 30 mg PO DAILY [facility] Last Admin: 12/10/16 09:21 Dose: 30 mg Desmopressin Acetate (Ddavp 0.01% Nasal [place] -) 1 spray NS BID [facility] Stop: 12/11/16 10:01 Last Admin: 12/10/16 22:18 Dose: 1 spray Epoetin Lauri (Procrit -) 20,000 unit IVPUSH ONCE ONE Stop: 12/11/16 06:01 Furosemide (Lasix Injection -) 80 mg IVPUSH DAILY [facility] Last Admin: 12/10/16 09:21 Dose: 80 mg Hydralazine HCl (Apresoline -) 25 mg PO BID [facility] Last Admin: 12/10/16 22:18 Dose: 25 mg Cefepime HCl 0.5 gm/ Dextrose 50 mls @ 100 mls/hr IVPB DAILY [facility] Last Admin: 12/10/16 12:15 Dose: 100 mls/hr Vancomycin HCl 1,000 mg/ (Dextrose) 250 mls @ 166.667 mls/hr IVPB ONCE ONE PRN Reason: Protocol Stop: 12/11/16 07:29 Insulin Aspart (Novolog Vial) 6 units SQ TIDAC [facility] Last Admin: 12/11/16 06:38 Dose: 6 units Insulin Detemir (Levemir Vial) 15 units SQ HS [facility] Last Admin: 12/10/16 22:32 Dose: 15 units Lisinopril (Prinivil) 5 mg PO DAILY [facility] Last Admin: 12/10/16 09:21 Dose: 5 mg Magnesium Oxide (Mag-Ox -) 400 mg PO BID [facility] Last Admin: 12/10/16 22:18 Dose: 400 mg Mupirocin (Bactroban 2% Cream -) 1 applic TP BID [facility] Last Admin: 12/10/16 22:25 Dose: 1 applic Nitroglycerin (Nitrostat -) 0.4 mg SL Q5M PRN PRN Reason: CHEST PAIN Sevelamer Carbonate (Renvela -) 800 mg PO TIDCM [facility] Last Admin: 12/10/16 17:31 Dose: 800 mg Sodium Chloride (Normal Saline -) 970 ml IV Q20M PRN PRN Reason: MAP<65mm Hg OR SBP <90 Sodium Chloride ([place] Nasal [place] -) 2 spray NS TID [facility] Last Admin: 12/11/16 05:59 Dose: 2 spray - Objective Vital Signs: Vital Signs Temperature 98.8 F 12/11/16 06:00 Pulse Rate 90 12/11/16 06:00 Respiratory Rate 20 12/11/16 06:00 Blood Pressure 143/82 12/11/16 06:00 O2 Sat by Pulse Oximetry (%) 96 12/10/16 21:00 Labs: CBC, BMP 12/10/16 06:30 12/10/16 06:30 INR, PTT INR 1.16 (0.82-1.09) H 12/09/16 09:39 Problem List - Problems (1) CHF exacerbation Assessment/Plan: on hydralazine and lisinopril; F/u BUN/Cr, electrolytes, Is and Os, daily weight. For hemodialysis today. Code(s): I50.9 - HEART FAILURE, UNSPECIFIED (2) Diabetes mellitus Code(s): E11.9 - TYPE 2 DIABETES MELLITUS WITHOUT COMPLICATIONS Qualifiers: Diabetes mellitus type: type 2 Diabetes mellitus complication status: with kidney complications Diabetes mellitus complication detail: with chronic kidney disease (3) Elevated cholesterol Assessment/Plan: statin; lipid levels TSH. Code(s): E78.0 - PURE HYPERCHOLESTEROLEMIA * DO NOT USE * (4) Anemia in ESRD (end-stage renal disease) Assessment/Plan: On Procrit. Code(s): N18.6 - END STAGE RENAL DISEASE D63.1 - ANEMIA IN CHRONIC KIDNEY DISEASE (5) CAD (coronary artery disease) Code(s): I25.10 - ATHSCL HEART DISEASE OF [place] CORONARY ARTERY W/O ANG PCTRS (6) Depression Code(s): F32.9 - MAJOR DEPRESSIVE DISORDER, SINGLE EPISODE, UNSPECIFIED
[2016-12-11 08:28] LABS: THYROID STIMULATING HORMONE 0.33 uIU/ml (0.358-3.74)
[2016-12-11] MEDS: SEVELAMER CARBONATE 800 MG TAB (FP) PO SCH ×3 (08:48→23:01)
[2016-12-11] MEDS ORDERED: VANCOMYCIN 1,000 MG in DEXTROSE 5%-WATER - 250 ML IVPB ONE (10:15)
[2016-12-11] MEDS ORDERED: PT OWN MED DRAWER 7, Y5N ONE ×2 (10:55→21:15)
[2016-12-11 10:56] LABS: MCH 30.3 pg (25.7-33.7); MCHC 33.1 g/dl (32.0-35.9); MEAN CELL VOLUME 91.6 fl (80-96); MEAN PLT VOLUME 8.1 fl (7.5-11.1); PLATELET COUNT 353 K/MM3 (134-434); RDW 15.3 % (11.9-15.9); WHITE BLOOD COUNT 8.8 K/mm3 (4.0-10.0)
[2016-12-11] MEDS ORDERED: EPOETIN ALFA 20,000 UNIT/1 ML VIAL IVPUSH ONE (11:00)
[2016-12-11 11:34] LABS: ANION GAP 10 (8-16); CALCIUM 8.2 mg/dL (8.5-10.1); CO2 29 mmol/L (21-32); GLUCOSE,RANDOM 147 mg/dL (74-106)
[2016-12-11 11:35] LABS: CREATININE 6.9 mg/dL (0.7-1.3)
[2016-12-11 12:12] LABS: FERRITIN 1191.189 ng/ml (16.4-293.9)
[2016-12-11] MEDS: ALLOPURINOL 100 MG TABLET (FP) PO SCH (14:52)
[2016-12-11] MEDS: LISINOPRIL 5 MG TABLET (FP) PO SCH (14:52)
[2016-12-11] MEDS: MAGNESIUM OXIDE 400 MG TABLET (FP) PO SCH ×2 (14:52→23:01)
[2016-12-11] MEDS: hydrALAZINE HCL 25 MG TABLET (FP) PO SCH ×2 (14:52→23:01)
[2016-12-11] MEDS: CINACALCET HCL 30 MG TAB (FP) PO SCH (14:53)
[2016-12-11] MEDS: CEFEPIME 0.5 GM in DEXTROSE 5%-WATER - 50 ML IVPB SCH (14:53)
[2016-12-11] MEDS: FUROSEMIDE 40 MG/4 ML INJECTABLE VIAL IVPUSH SCH (15:13)
[2016-12-11] MEDS: MUPIROCIN CA 2% TOPICAL CREAM 15 GM TUBE TP SCH ×3 (15:13→23:02)
[2016-12-11] MEDS: DESMOPRESSIN 0.1 MG/ML NS SCH (15:19)
--- NOTE | 2016-12-11 15:47 | PN ---
Progress Note (short form) - Note Progress Note: Renal Follow up for ESRD on HD Pt seen and examined at the bedside s/p dialysis earlier today 3.5L removed with HD no acute complaints SOb still persists Vital Signs Temperature 99.0 F 12/11/16 14:38 Pulse Rate 109 H 12/11/16 15:03 Respiratory Rate 18 12/11/16 14:00 Blood Pressure 165/95 12/11/16 14:38 O2 Sat by Pulse Oximetry (%) 95 12/11/16 15:03 Intake & Output 12/08/16 12/09/16 12/10/16 12/11/16 23:59 23:59 23:59 23:59 Intake Total 300 1800 750 Output Total 250 100 Balance 50 1700 750 Weight 215 lb 210 lb 207 lb 6.4 oz NAD Awake and alert No JVD Tachycardic no M/R no rales Obese, mild distended Abd Trace to 1+ edema in the LE CBC, BMP 12/11/16 10:00 12/11/16 10:00 Laboratory Tests 12/11/16 10:00 Calcium 8.2 L Phosphorus 4.0 Current Medications Albuterol/Ipratropium (Duoneb -) 1 amp NEB Q4HPO [facility] Stop: 12/16/16 21:59 Last Admin: 12/11/16 14:24 Dose: 1 amp Allopurinol (Zyloprim -) 100 mg PO DAILY [facility] Last Admin: 12/11/16 14:52 Dose: 100 mg Atorvastatin Calcium (Lipitor -) 80 mg PO HS [facility] Last Admin: 12/10/16 22:18 Dose: 80 mg Azithromycin (Zithromax -) 500 mg PO HS [facility] Last Admin: 12/10/16 22:18 Dose: 500 mg Cinacalcet (Sensipar -) 30 mg PO DAILY [facility] Last Admin: 12/11/16 14:53 Dose: 30 mg Furosemide (Lasix Injection -) 80 mg IVPUSH DAILY [facility] Last Admin: 12/11/16 15:13 Dose: 80 mg Hydralazine HCl (Apresoline -) 25 mg PO BID [facility] Last Admin: 12/11/16 14:52 Dose: 25 mg Cefepime HCl 0.5 gm/ Dextrose 50 mls @ 100 mls/hr IVPB DAILY [facility] Last Admin: 12/11/16 14:53 Dose: 100 mls/hr Insulin Aspart (Novolog Vial) 6 units SQ TIDAC [facility] Last Admin: 12/11/16 14:38 Dose: 6 units Insulin Detemir (Levemir Vial) 15 units SQ HS [facility] Last Admin: 12/10/16 22:32 Dose: 15 units Lisinopril (Prinivil) 5 mg PO DAILY [facility] Last Admin: 12/11/16 14:52 Dose: 5 mg Magnesium Oxide (Mag-Ox -) 400 mg PO BID [facility] Last Admin: 12/11/16 14:52 Dose: 400 mg Mupirocin (Bactroban 2% Cream -) 1 applic TP BID [facility] Last Admin: 12/11/16 15:23 Dose: 1 applic Nitroglycerin (Nitrostat -) 0.4 mg SL Q5M PRN PRN Reason: CHEST PAIN Sevelamer Carbonate (Renvela -) 800 mg PO TIDCM [facility] Last Admin: 12/11/16 12:00 Dose: Not Given Sodium Chloride (Normal Saline -) 970 ml IV Q20M PRN PRN Reason: MAP<65mm Hg OR SBP <90 Sodium Chloride ([place] Nasal [place] -) 2 spray NS TID [facility] Last Admin: 12/11/16 15:19 Dose: 2 spray A/P 51 year old Gentleman with PMhx of ESRD on HD (TTS at [facility]), Hypertension, CAD, PVD, DM2, Hx of paraspinal abcess recently admitted for Osteomylitis who presented with complaints of SOB. #SOB likely multifactorial secondary to CHF, Asthma/Reactive airway disease and Anemia HD today with 3.5kf UF will plan additional UF tomorrow s/p additional PRBC transfusion today #ESRD on HD tolerated HD well today #Worsening Anemia s/p 1 prbc transfusion #Recent diagnosis of Osteomylitis continue Abx as per ID will continue vanco with HD Thank you Will follow Antwan Hurley DO
--- NOTE | 2016-12-11 16:13 | PN ---
Progress Note, Physician History of Present Illness: had dialysis sob still persists - Current Medication List Current Medications: Active Medications Albuterol/Ipratropium (Duoneb -) 1 amp NEB Q4HPO [facility] Stop: 12/16/16 21:59 Last Admin: 12/11/16 14:24 Dose: 1 amp Allopurinol (Zyloprim -) 100 mg PO DAILY [facility] Last Admin: 12/11/16 14:52 Dose: 100 mg Atorvastatin Calcium (Lipitor -) 80 mg PO [facility] Last Admin: 12/10/16 22:18 Dose: 80 mg Azithromycin (Zithromax -) 500 mg PO HS [facility] Last Admin: 12/10/16 22:18 Dose: 500 mg Cinacalcet (Sensipar -) 30 mg PO DAILY [facility] Last Admin: 12/11/16 14:53 Dose: 30 mg Furosemide (Lasix Injection -) 80 mg IVPUSH DAILY [facility] Last Admin: 12/11/16 15:13 Dose: 80 mg Hydralazine HCl (Apresoline -) 25 mg PO BID [facility] Last Admin: 12/11/16 14:52 Dose: 25 mg Insulin Aspart (Novolog Vial) 6 units SQ TIDAC [facility] Last Admin: 12/11/16 14:38 Dose: 6 units Insulin Detemir (Levemir Vial) 15 units SQ [facility] Last Admin: 12/10/16 22:32 Dose: 15 units Lisinopril (Prinivil) 5 mg PO DAILY [facility] Last Admin: 12/11/16 14:52 Dose: 5 mg Magnesium Oxide (Mag-Ox -) 400 mg PO BID [facility] Last Admin: 12/11/16 14:52 Dose: 400 mg Mupirocin (Bactroban 2% Cream -) 1 applic TP BID [facility] Last Admin: 12/11/16 15:23 Dose: 1 applic Nitroglycerin (Nitrostat -) 0.4 mg SL Q5M PRN PRN Reason: CHEST PAIN Sevelamer Carbonate (Renvela -) 800 mg PO TIDCM [facility] Last Admin: 12/11/16 12:00 Dose: Not Given Sodium Chloride (Normal Saline -) 970 ml IV Q20M PRN PRN Reason: MAP<65mm Hg OR SBP <90 Sodium Chloride ([place] Nasal [place] -) 2 spray NS TID [facility] Last Admin: 12/11/16 15:19 Dose: 2 spray - Objective Vital Signs: Vital Signs Temperature 99.0 F 12/11/16 14:38 Pulse Rate 109 H 12/11/16 15:03 Respiratory Rate 18 12/11/16 14:00 Blood Pressure 165/95 12/11/16 14:38 O2 Sat by Pulse Oximetry (%) 95 12/11/16 15:03 Constitutional: Yes: No Distress, Calm Cardiovascular: Yes: Regular Rate and Rhythm Respiratory: Yes: Poor Air Entry (at both bases) Gastrointestinal: Yes: Normal Bowel Sounds, Soft Musculoskeletal: Yes: Other Extremities: Yes: Other Wound/Incision: Yes: Dressing Dry and Intact Neurological: Yes: Alert, Oriented Psychiatric: Yes: Alert, Oriented Labs: INR, PTT INR 1.16 (0.82-1.09) H 12/09/16 09:39 Assessment/Plan Problem List - Problems (1) Anemia Code(s): D64.9 - ANEMIA, UNSPECIFIED Qualifiers: Anemia type: due to chronic kidney disease (2) CHF exacerbation Code(s): I50.9 - HEART FAILURE, UNSPECIFIED (3) ESRD (end stage renal disease) on dialysis Code(s): N18.6 - END STAGE RENAL DISEASE Z99.2 - DEPENDENCE ON RENAL DIALYSIS (4) COPD exacerbation Code(s): J44.1 - CHRONIC OBSTRUCTIVE PULMONARY DISEASE W (ACUTE) EXACERBATION (5) Diabetes mellitus Code(s): E11.9 - TYPE 2 DIABETES MELLITUS WITHOUT COMPLICATIONS Qualifiers: Diabetes mellitus type: type 2 Diabetes mellitus complication status: with kidney complications Diabetes mellitus complication detail: with chronic kidney disease (6) Hypertension Code(s): I10 - ESSENTIAL (PRIMARY) HYPERTENSION Qualifiers: Hypertension type: essential hypertension Qualified Code(s): I10 - Essential (primary) hypertension; I10 - Essential (primary) hypertension; I10 - Essential (primary) hypertension (7) Chronic osteomyelitis of cervical spine Code(s): M46.22 - OSTEOMYELITIS OF [place], CERVICAL REGION (8) CAD (coronary artery disease) Code(s): I25.10 - ATHSCL HEART DISEASE OF [place] CORONARY ARTERY W/O ANG PCTRS (9) Bacteremia due to Gram-positive bacteria Code(s): A49.9 - BACTERIAL INFECTION, UNSPECIFIED (10) MRSA (methicillin resistant staph aureus) culture positive Code(s): Z22.322 - CARRIER OR SUSPECTED CARRIER OF METHICILLIN RESIS STAPH plan patient already on vanco continue dialysis if patient still continues to be sob might consider tapping will d/w primary team
--- NOTE | 2016-12-11 19:38 | PN ---
Progress Note, Physician Chief Complaint: Pt had Episode of Epistaxis but better now Seen By ENT also ESRD/ Volume overload COPD excerbation History of Present Illness: Patient is a 51 y.o. with a PMH of MRSA, cervical osteomyelitis, hypertension, CHF (ECHO 04/11: diastolic dysfunction; normal LVEF), silent [place] s/p CABG x 2 vessels (2010), cardiac stent (2013), ESRD (on Dialysis T,R,S), anemia and hyperlipidema as well as an extended ICU admission for pneumonia at an outside institution in December 2015 presents c/o of acute onset of shortness of breath. Patient states he was awakened from sleep with shortness of breath. Patient endorses pleuritic chest pain, as well as intermittent non-productive cough and a few episodes of yellowish emesis. Patient denies any subjective fever, nausea, abdominal pain, or symptoms. - Current Medication List Current Medications: Active Medications Albuterol/Ipratropium (Duoneb -) 1 amp NEB Q4HPO [facility] Stop: 12/16/16 21:59 Last Admin: 12/11/16 17:52 Dose: 1 amp Allopurinol (Zyloprim -) 100 mg PO DAILY [facility] Last Admin: 12/11/16 14:52 Dose: 100 mg Atorvastatin Calcium (Lipitor -) 80 mg PO HS [facility] Last Admin: 12/10/16 22:18 Dose: 80 mg Azithromycin (Zithromax -) 500 mg PO HS [facility] Last Admin: 12/10/16 22:18 Dose: 500 mg Cinacalcet (Sensipar -) 30 mg PO DAILY [facility] Last Admin: 12/11/16 14:53 Dose: 30 mg Furosemide (Lasix Injection -) 80 mg IVPUSH DAILY [facility] Last Admin: 12/11/16 15:13 Dose: 80 mg Hydralazine HCl (Apresoline -) 25 mg PO BID [facility] Last Admin: 12/11/16 14:52 Dose: 25 mg Insulin Aspart (Novolog Vial) 6 units SQ TIDAC [facility] Last Admin: 12/11/16 17:43 Dose: 6 units Insulin Detemir (Levemir Vial) 15 units SQ HS [facility] Last Admin: 12/10/16 22:32 Dose: 15 units Lisinopril (Prinivil) 5 mg PO DAILY [facility] Last Admin: 12/11/16 14:52 Dose: 5 mg Magnesium Oxide (Mag-Ox -) 400 mg PO BID [facility] Last Admin: 12/11/16 14:52 Dose: 400 mg Mupirocin (Bactroban 2% Cream -) 1 applic TP BID [facility] Last Admin: 12/11/16 15:23 Dose: 1 applic Nitroglycerin (Nitrostat -) 0.4 mg SL Q5M PRN PRN Reason: CHEST PAIN Sevelamer Carbonate (Renvela -) 800 mg PO TIDCM [facility] Last Admin: 12/11/16 12:00 Dose: Not Given Sodium Chloride (Normal Saline -) 970 ml IV Q20M PRN PRN Reason: MAP<65mm Hg OR SBP <90 Sodium Chloride ([place] Nasal [place] -) 2 spray NS TID [facility] Last Admin: 12/11/16 15:19 Dose: 2 spray - Objective Vital Signs: Vital Signs Temperature 99.0 F 12/11/16 14:38 Pulse Rate 97 H 12/11/16 16:00 Respiratory Rate 20 12/11/16 16:00 Blood Pressure 137/79 12/11/16 16:00 O2 Sat by Pulse Oximetry (%) 95 12/11/16 15:03 Constitutional: Yes: Well Nourished, No Distress Eyes: Yes: EOM Intact HENT: Yes: Atraumatic, Normocephalic Neck: Yes: Supple, Trachea Midline Cardiovascular: Yes: Regular Rate and Rhythm, S1, S2 Respiratory: Yes: Regular, CTA Bilaterally Gastrointestinal: Yes: Normal Bowel Sounds, Soft Labs: INR, PTT INR 1.16 (0.82-1.09) H 12/09/16 09:39 Problem List - Problems (1) Anemia Code(s): D64.9 - ANEMIA, UNSPECIFIED Qualifiers: Anemia type: due to chronic kidney disease (2) CHF exacerbation Code(s): I50.9 - HEART FAILURE, UNSPECIFIED (3) ESRD (end stage renal disease) on dialysis Code(s): N18.6 - END STAGE RENAL DISEASE Z99.2 - DEPENDENCE ON RENAL DIALYSIS (4) COPD exacerbation Code(s): J44.1 - CHRONIC OBSTRUCTIVE PULMONARY DISEASE W (ACUTE) EXACERBATION (5) Diabetes mellitus Code(s): E11.9 - TYPE 2 DIABETES MELLITUS WITHOUT COMPLICATIONS Qualifiers: Diabetes mellitus type: type 2 Diabetes mellitus complication status: with kidney complications Diabetes mellitus complication detail: with chronic kidney disease (6) Hypertension Code(s): I10 - ESSENTIAL (PRIMARY) HYPERTENSION Qualifiers: Hypertension type: essential hypertension Qualified Code(s): I10 - Essential (primary) hypertension; I10 - Essential (primary) hypertension; I10 - Essential (primary) hypertension (7) Chronic osteomyelitis of cervical spine Code(s): M46.22 - OSTEOMYELITIS OF [place], CERVICAL REGION (8) CAD (coronary artery disease) Code(s): I25.10 - ATHSCL HEART DISEASE OF [place] CORONARY ARTERY W/O ANG PCTRS (9) Bacteremia due to Gram-positive bacteria Code(s): A49.9 - BACTERIAL INFECTION, UNSPECIFIED (10) MRSA (methicillin resistant staph aureus) culture positive Code(s): Z22.322 - CARRIER OR SUSPECTED CARRIER OF METHICILLIN RESIS STAPH Assessment/Plan (1) Anemia Code(s): D64.9 - ANEMIA, UNSPECIFIED Qualifiers: Anemia type: due to chronic kidney disease S/P One Unit of PRBC (2) CHF exacerbation Code(s): I50.9 - HEART FAILURE, UNSPECIFIED (3) ESRD (end stage renal disease) on dialysis Code(s): N18.6 - END STAGE RENAL DISEASE Z99.2 - DEPENDENCE ON RENAL DIALYSIS (4) COPD exacerbation Code(s): J44.1 - CHRONIC OBSTRUCTIVE PULMONARY DISEASE W (ACUTE) EXACERBATION with Acute Bronchitis Zithromax 500 PO Daily 7 days (5) Diabetes mellitus Code(s): E11.9 - TYPE 2 DIABETES MELLITUS WITHOUT COMPLICATIONS Qualifiers: Diabetes mellitus type: type 2 Diabetes mellitus complication status: with kidney complications Diabetes mellitus complication detail: with chronic kidney disease (6) Hypertension Code(s): I10 - ESSENTIAL (PRIMARY) HYPERTENSION Qualifiers: Hypertension type: essential hypertension Qualified Code(s): I10 - Essential (primary) hypertension; I10 - Essential (primary) hypertension; I10 - Essential (primary) hypertension (7) Chronic osteomyelitis of cervical spine Code(s): M46.22 - OSTEOMYELITIS OF [place], CERVICAL REGION H/O Rx for 6 weks at [facility] (8) CAD (coronary artery disease) Code(s): I25.10 - ATHSCL HEART DISEASE OF [place] CORONARY ARTERY W/O ANG PCTRS (9) Bacteremia due to Gram-positive bacteria Code(s): A49.9 - BACTERIAL INFECTION, UNSPECIFIED (10) MRSA (methicillin resistant staph aureus) culture positive Code(s): Z22.322 - CARRIER OR SUSPECTED CARRIER OF METHICILLIN RESIS STAPH Lt Foot MTA site infection 11) Epistaxis: stable
[2016-12-11] MEDS: AZITHROMYCIN 250 MG TABLET PO SCH (23:01)
[2016-12-11] MEDS: ATORVASTATIN CA 80 MG TABLET (FP) PO SCH (23:01)
[2016-12-11] MEDS: INSULIN DETEMIR 100 UNITS/ML MDV SQ SCH (23:02)
[2016-12-12] MEDS: ALBUTEROL SO4 2.5/IPRATROPIUM 0.5 INH SOL 3 ML VIAL.NEB. NEB SCH ×4 (01:57→14:10)
[2016-12-12] MEDS: SODIUM CHLORIDE NASAL SPRAY 44 ML BOTTLE NS SCH ×2 (06:58→15:17)
[2016-12-12] MEDS: INSULIN (NOVOLOG) ASPART 100 UNITS/ML 10ML VIAL SQ SCH ×2 (07:01→11:38)
[2016-12-12 08:09] LABS: SERUM IRON 48 ug/dL (38-169); TOTAL IRON BINDING CAPACITY 154 ug/dL (250-450); UIBC 106 ug/dL (111-343)
[2016-12-12 08:49] LABS: MCH 30.4 pg (25.7-33.7); MEAN CELL VOLUME 92.2 fl (80-96); MEAN PLT VOLUME 7.9 fl (7.5-11.1); PLATELET COUNT 357 K/MM3 (134-434); RDW 14.8 % (11.9-15.9); WHITE BLOOD COUNT 8.7 K/mm3 (4.0-10.0)
[2016-12-12] MEDS: SEVELAMER CARBONATE 800 MG TAB (FP) PO SCH ×2 (09:09→11:38)
[2016-12-12 09:12] LABS: ANION GAP 11 (8-16); CO2 29 mmol/L (21-32); CREATININE 4.9 mg/dL (0.7-1.3); GLUCOSE,RANDOM 204 mg/dL (74-106)
[2016-12-12 11:08] VITALS: PULSE 100
[2016-12-12] MEDS ORDERED: PT OWN MED DRAWER 7, Y5N ONE ×2 (11:25→12:29)
[2016-12-12] MEDS: hydrALAZINE HCL 25 MG TABLET (FP) PO SCH (11:38)
[2016-12-12] MEDS: MUPIROCIN CA 2% TOPICAL CREAM 15 GM TUBE TP SCH (11:38)
[2016-12-12] MEDS: MAGNESIUM OXIDE 400 MG TABLET (FP) PO SCH (11:38)
[2016-12-12] MEDS: ALLOPURINOL 100 MG TABLET (FP) PO SCH (11:38)
[2016-12-12] MEDS: CINACALCET HCL 30 MG TAB (FP) PO SCH (11:38)
[2016-12-12] MEDS: FUROSEMIDE 40 MG/4 ML INJECTABLE VIAL IVPUSH SCH (11:38)
[2016-12-12] MEDS: LISINOPRIL 5 MG TABLET (FP) PO SCH (11:38)
--- NOTE | 2016-12-12 14:30 | DS ---
Physical Examination Vital Signs: Vital Signs Temperature 98.4 F 12/12/16 08:05 Pulse Rate 100 H 12/12/16 11:00 Respiratory Rate 18 12/12/16 11:00 Blood Pressure 182/98 12/12/16 11:00 O2 Sat by Pulse Oximetry (%) 100 12/11/16 21:00 Findings/Remarks: Patient is a 51 y.o. with a PMH of MRSA, cervical osteomyelitis, hypertension, CHF (ECHO 04/11: diastolic dysfunction; normal LVEF), silent [place] s/p CABG x 2 vessels (2010), cardiac stent (2013), ESRD (on Dialysis T,R,S), anemia and hyperlipidema as well as an extended ICU admission for pneumonia at an outside institution in December 2015 presents c/o of acute onset of shortness of breath. Patient states he was awakened from sleep with shortness of breath. Patient endorses pleuritic chest pain, as well as intermittent non-productive cough and a few episodes of yellowish emesis. Patient denies any subjective fever, nausea, abdominal pain, or symptoms. Pt was Given One unit of PRBC Pt had Been seen By Renal and ID also Pt was Rx for Asthma /COPD exacerbation Pt will be DCed home today to FU with Dr Pickett PMD and Renal for dialysis also. Constitutional: Yes: No Distress Eyes: Yes: EOM Intact HENT: Yes: Atraumatic, Normocephalic Neck: Yes: Supple, Trachea Midline Cardiovascular: Yes: Regular Rate and Rhythm, S1, S2 Respiratory: Yes: Regular, CTA Bilaterally Gastrointestinal: Yes: Normal Bowel Sounds, Soft Musculoskeletal: Yes: Muscle Weakness Extremities: Yes: Other (S/P TMA) Edema: No Neurological: Yes: Alert, Oriented, Cran Nerves II-XII Intact Labs: CBC, BMP 12/12/16 08:15 12/12/16 08:15 Discharge Summary Reason For Visit: SEPSIS Current Active Problems Anemia (Acute) CHF exacerbation (Acute) COPD exacerbation (Acute) Chronic osteomyelitis of cervical spine (Acute) Conjunctivitis (Acute) Diabetes mellitus (Acute) Elevated cholesterol (Acute) Elevated troponin I level (Acute) Epistaxis (Acute) Hyperkalemia (Acute) Influenza (Acute) MRSA (methicillin resistant staph aureus) culture positive (Acute) Pain (Acute) Pneumonia (Acute) Posterior neck pain (Acute) Sepsis (Acute) Systolic and diastolic CHF, chronic (Acute) Upper abdominal pain (Acute) - Instructions Disposition: HOME - Home Medications Comprehensive Discharge Medication List: Ambulatory Orders Allopurinol [Zyloprim -] 100 mg PO DAILY 11/28/16 Atorvastatin Ca [Lipitor] 80 mg PO HS 11/28/16 Cinacalcet HCl [Sensipar] 30 mg PO DAILY 11/28/16 Ferrous Sulfate 325 mg PO DAILY 11/28/16 Furosemide [Lasix] 80 mg PO DAILY 11/28/16 Hydralazine HCl 50 mg PO DAILY 11/28/16 Lisinopril 5 mg PO DAILY 11/28/16 Magnesium Oxide [Mag-Ox -] 400 mg PO TID 11/28/16 Nitroglycerin 0.4 mg SL DAILY PRN 11/28/16 Omeprazole 20 mg PO DAILY 11/28/16 Sevelamer Carbonate [Renvela] 800 mg NR TID 11/28/16 Zithromax 500 Po daily 7 days Albuterol Inhaler 2puffs Q6 Symbicort 2 puffs BID All prescriptions sent to [facility] [address] [place] [address]
[2016-12-12 14:34] VITALS: BP 126/71; TEMP 99.9
--- NOTE | 2016-12-12 14:58 | PN ---
Progress Note, Physician History of Present Illness: had dialysis breathing much better off of nasal o2 - Current Medication List Current Medications: Active Medications Albuterol/Ipratropium (Duoneb -) 1 amp NEB Q4HPO [facility] Stop: 12/16/16 21:59 Last Admin: 12/12/16 14:10 Dose: 1 amp Allopurinol (Zyloprim -) 100 mg PO DAILY [facility] Last Admin: 12/12/16 11:38 Dose: 100 mg Atorvastatin Calcium (Lipitor -) 80 mg PO [facility] Last Admin: 12/11/16 23:01 Dose: 80 mg Azithromycin (Zithromax -) 500 mg PO HS [facility] Last Admin: 12/11/16 23:01 Dose: 500 mg Cinacalcet (Sensipar -) 30 mg PO DAILY [facility] Last Admin: 12/12/16 11:38 Dose: 30 mg Furosemide (Lasix Injection -) 80 mg IVPUSH DAILY [facility] Last Admin: 12/12/16 11:38 Dose: 80 mg Hydralazine HCl (Apresoline -) 25 mg PO BID [facility] Last Admin: 12/12/16 11:38 Dose: 25 mg Insulin Aspart (Novolog Vial) 6 units SQ TIDAC [facility] Last Admin: 12/12/16 11:38 Dose: 6 units Insulin Detemir (Levemir Vial) 15 units SQ [facility] Last Admin: 12/11/16 23:02 Dose: 15 units Lisinopril (Prinivil) 5 mg PO DAILY [facility] Last Admin: 12/12/16 11:38 Dose: 5 mg Magnesium Oxide (Mag-Ox -) 400 mg PO BID [facility] Last Admin: 12/12/16 11:38 Dose: 400 mg Mupirocin (Bactroban 2% Cream -) 1 applic TP BID [facility] Last Admin: 12/12/16 11:38 Dose: 1 applic Nitroglycerin (Nitrostat -) 0.4 mg SL Q5M PRN PRN Reason: CHEST PAIN Sevelamer Carbonate (Renvela -) 800 mg PO TIDCM [facility] Last Admin: 12/12/16 11:38 Dose: 800 mg Sodium Chloride (Normal Saline -) 970 ml IV Q20M PRN PRN Reason: MAP<65mm Hg OR SBP <90 Sodium Chloride ([place] Nasal [place] -) 2 spray NS TID [facility] Last Admin: 12/12/16 06:58 Dose: 2 spray - Objective Vital Signs: Vital Signs Temperature 99.9 F H 12/12/16 14:31 Pulse Rate 100 H 12/12/16 14:31 Respiratory Rate 18 12/12/16 11:00 Blood Pressure 126/71 12/12/16 14:31 O2 Sat by Pulse Oximetry (%) 100 12/11/16 21:00 Constitutional: Yes: No Distress, Calm Cardiovascular: Yes: Regular Rate and Rhythm Respiratory: Yes: Regular, Other (decreased air entry at lower lobes) Gastrointestinal: Yes: Normal Bowel Sounds, Soft Musculoskeletal: Yes: WNL Extremities: Yes: Other Neurological: Yes: Alert, Oriented Psychiatric: Yes: Alert, Oriented Labs: CBC, BMP 12/12/16 08:15 12/12/16 08:15 INR, PTT INR 1.16 (0.82-1.09) H 12/09/16 09:39 Assessment/Plan Problem List - Problems (1) Anemia Code(s): D64.9 - ANEMIA, UNSPECIFIED Qualifiers: Anemia type: due to chronic kidney disease (2) CHF exacerbation Code(s): I50.9 - HEART FAILURE, UNSPECIFIED (3) ESRD (end stage renal disease) on dialysis Code(s): N18.6 - END STAGE RENAL DISEASE Z99.2 - DEPENDENCE ON RENAL DIALYSIS (4) COPD exacerbation Code(s): J44.1 - CHRONIC OBSTRUCTIVE PULMONARY DISEASE W (ACUTE) EXACERBATION (5) Diabetes mellitus Code(s): E11.9 - TYPE 2 DIABETES MELLITUS WITHOUT COMPLICATIONS Qualifiers: Diabetes mellitus type: type 2 Diabetes mellitus complication status: with kidney complications Diabetes mellitus complication detail: with chronic kidney disease (6) Hypertension Code(s): I10 - ESSENTIAL (PRIMARY) HYPERTENSION Qualifiers: Hypertension type: essential hypertension Qualified Code(s): I10 - Essential (primary) hypertension; I10 - Essential (primary) hypertension; I10 - Essential (primary) hypertension (7) Chronic osteomyelitis of cervical spine Code(s): M46.22 - OSTEOMYELITIS OF [place], CERVICAL REGION (8) CAD (coronary artery disease) Code(s): I25.10 - ATHSCL HEART DISEASE OF [place] CORONARY ARTERY W/O ANG PCTRS (9) Bacteremia due to Gram-positive bacteria Code(s): A49.9 - BACTERIAL INFECTION, UNSPECIFIED (10) MRSA (methicillin resistant staph aureus) culture positive Code(s): Z22.322 - CARRIER OR SUSPECTED CARRIER OF METHICILLIN RESIS STAPH plan continue abx for osteo rest as per primary team
--- NOTE | 2016-12-12 15:33 | PN ---
Progress Note (short form) - Note Progress Note: Renal Follow up for ESRD on HD Pt seen and examined at the bedside s/p isolated Uf this am with 2.5kg removed no acute complaints no sob now leg w/o pain Vital Signs Temperature 99.9 F H 12/12/16 14:31 Pulse Rate 100 H 12/12/16 14:31 Respiratory Rate 18 12/12/16 11:00 Blood Pressure 126/71 12/12/16 14:31 O2 Sat by Pulse Oximetry (%) 100 12/11/16 21:00 Intake & Output 12/09/16 12/10/16 12/11/16 12/12/16 23:59 23:59 23:59 23:59 Intake Total 300 1800 1050 770 Output Total 250 100 Balance 50 1700 1050 770 Weight 215 lb 210 lb 207 lb 6.4 oz 207 lb 6.4 oz NAD Awake and alert No JVD Tachycardic no M/R no rales Obese, mild distended Abd Trace to 1+ edema in the LE CBC, BMP 12/12/16 08:15 12/12/16 08:15 Laboratory Tests 12/12/16 08:15 Calcium 8.0 L Current Medications Albuterol/Ipratropium (Duoneb -) 1 amp NEB Q4HPO [facility] Stop: 12/16/16 21:59 Last Admin: 12/12/16 14:10 Dose: 1 amp Allopurinol (Zyloprim -) 100 mg PO DAILY [facility] Last Admin: 12/12/16 11:38 Dose: 100 mg Atorvastatin Calcium (Lipitor -) 80 mg PO HS [facility] Last Admin: 12/11/16 23:01 Dose: 80 mg Azithromycin (Zithromax -) 500 mg PO HS [facility] Last Admin: 12/11/16 23:01 Dose: 500 mg Cinacalcet (Sensipar -) 30 mg PO DAILY [facility] Last Admin: 12/12/16 11:38 Dose: 30 mg Furosemide (Lasix Injection -) 80 mg IVPUSH DAILY [facility] Last Admin: 12/12/16 11:38 Dose: 80 mg Hydralazine HCl (Apresoline -) 25 mg PO BID [facility] Last Admin: 12/12/16 11:38 Dose: 25 mg Insulin Aspart (Novolog Vial) 6 units SQ TIDAC [facility] Last Admin: 12/12/16 11:38 Dose: 6 units Insulin Detemir (Levemir Vial) 15 units SQ HS [facility] Last Admin: 12/11/16 23:02 Dose: 15 units Lisinopril (Prinivil) 5 mg PO DAILY [facility] Last Admin: 12/12/16 11:38 Dose: 5 mg Magnesium Oxide (Mag-Ox -) 400 mg PO BID [facility] Last Admin: 12/12/16 11:38 Dose: 400 mg Mupirocin (Bactroban 2% Cream -) 1 applic TP BID [facility] Last Admin: 12/12/16 11:38 Dose: 1 applic Nitroglycerin (Nitrostat -) 0.4 mg SL Q5M PRN PRN Reason: CHEST PAIN Sevelamer Carbonate (Renvela -) 800 mg PO TIDCM [facility] Last Admin: 12/12/16 11:38 Dose: 800 mg Sodium Chloride (Normal Saline -) 970 ml IV Q20M PRN PRN Reason: MAP<65mm Hg OR SBP <90 Sodium Chloride ([place] Nasal [place] -) 2 spray NS TID [facility] Last Admin: 12/12/16 15:17 Dose: Not Given A/P 51 year old Gentleman with PMhx of ESRD on HD (TTS at [facility]), Hypertension, CAD, PVD, DM2, Hx of paraspinal abcess recently admitted for Osteomylitis who presented with complaints of SOB. #SOB likely multifactorial secondary to CHF, Asthma/Reactive airway disease and Anemia clinically improved s/p UF and transfusion #ESRD on HD s/p isolated UF today to resume regular HD as outpatient tomorrow #Worsening Anemia s/p transfusion continue DAVON with HD #Recent diagnosis of Osteomylitis Continue Vanco with HD Thank you Will follow Antwan Hurley DO
== END 2016-12-12 16:04 | disposition home or self-care (01) | DRG 291 ==
LOC: JER 08:24 → SUPCPDRO 08:24 → UNDOADMOB 11:33 → JERBED 11:33 → OBSVTOIN 14:47 → INTOOBSV 14:47 → JERBED 15:13 → J5S 21:16 → OBSVTOIN 12-11 12:20
PROVIDERS: ADMIT Internal Medicine; ATTEND Internal Medicine
PROC: 5A1D70Z Performance of Urinary Filtration, Intermittent, Less than 6 Hours Per Day (ICD-10-PCS; principal; 2016-12-09)
PROC: 30233N1 Transfusion of Nonautologous Red Blood Cells into Peripheral Vein, Percutaneous Approach (ICD-10-PCS; 2016-12-09)
DX: I13.2 Hypertensive heart and chronic kidney disease with heart failure and with stage 5 chronic kidney disease, or end stage renal disease (principal); N18.6 End stage renal disease; I50.33 Acute on chronic diastolic (congestive) heart failure; M46.22 Osteomyelitis of vertebra, cervical region; J44.1 Chronic obstructive pulmonary disease with (acute) exacerbation; I25.2 Old myocardial infarction; D64.9 Anemia, unspecified; K21.9 Gastro-esophageal reflux disease without esophagitis; E78.00 Pure hypercholesterolemia, unspecified; E66.8 Other obesity; Z68.32 Body mass index [BMI] 32.0-32.9, adult; E11.51 Type 2 diabetes mellitus with diabetic peripheral angiopathy without gangrene; I25.10 Atherosclerotic heart disease of native coronary artery without angina pectoris; R04.0 Epistaxis; M10.9 Gout, unspecified; E11.22 Type 2 diabetes mellitus with diabetic chronic kidney disease; H54.40 Blindness, one eye, unspecified eye; D63.1 Anemia in chronic kidney disease; Z86.14 Personal history of Methicillin resistant Staphylococcus aureus infection; Z87.891 Personal history of nicotine dependence; Z89.432 Acquired absence of left foot; Z95.1 Presence of aortocoronary bypass graft; Z99.2 Dependence on renal dialysis; Z95.5 Presence of coronary angioplasty implant and graft
CPT/HCPCS: 36415; 36430; 36600; 71010-TC; 80048; 80053; 80061; 81003; 81015; 82550; 82728; 82803; 83540; 83550; 83605; 83721; 83735; 84100; 84443; 84484; 85025; 85027; 85610; 85730; 86850; 86900; 86901; 86922; 87040; 87086; 87804; 93005; 93010; 93306-TC; 94640; 99284-25; G0378; G0480; J0885; P9038; P9058

== ENCOUNTER 2017-03-25 13:39 | Emergency (ER) | payer OTHER ==
--- NOTE | 2017-03-25 14:20 | PDOC ---
Rapid Medical Evaluation Chief Complaint: Injury Time Seen by Provider: 03/25/17 14:18 Medical Evaluation: Allergies Allergy/AdvReac Type Severity Reaction Status Date / Time No Known Drug Allergies Allergy Verified 03/25/17 14:17 03/25/17 14:19 I have performed a brief in-person evaluation of this patient. The patient presents with a chief complaint of: R knee/shoulder injury after slipping on ice today. Unable to bear weight. No head injury. On plavix and asa. H/o HTN, DM, CAD, CHF, osteo/sepsis, s/p L metatarsal amp, ambulates at baseline, ESRD on HD Pertinent physical exam findings:swollen painful R knee I have ordered the following:knee xray The patient will proceed to the ED for further evaluation.
[2017-03-25 14:22] VITALS: BP 158/93; PULSE 91; TEMP 99.3; BMI 31.9
[2017-03-25] MEDS ORDERED: ACETAMINOPHEN 325 MG TABLET (FP) PO ONE (14:23)
--- NOTE | 2017-03-25 15:43 | PDOC ---
History of Present Illness - General Chief Complaint: Injury Stated Complaint: FALL/ RT KNEE PAIN Time Seen by Provider: 03/25/17 14:18 History Source: Patient Exam Limitations: No Limitations - History of Present Illness Initial Comments: 03/25/17 15:42 CHIEF COMPLAINT: Right knee pain, status post fall HISTORY OF PRESENT ILLNESS: The patient presents with a chief complaint of: R knee/shoulder injury after stepping out of the car into a sweat with his a surgical boot from prior amputation, he fell hitting his right knee attempting to hold himself up now has pain to bilateral shoulders denies actually hitting his shoulder did have direct blow to right knee. Unable to bear weight. No head injury. On plavix and asa. H/o HTN, DM, CAD, CHF, osteo/sepsis, s/p L metatarsal amp, ambulates at baseline, ESRD on HD REVIEW OF SYSTEMS: GENERAL: Afebrile, A&O x3 RESPIRATORY: No cough, wheezing, or hemoptysis. CARDIAC: No CP or SOB MUSCULOSKELETAL: Pain to [ right] anterior knee SKIN : No erythema, no edema, no bruising, no deformity. NEUROLOGICAL: Denies any numbness or tingling. PHYSICAL EXAM: GENERAL: The patient is awake, alert, and fully oriented, in no acute distress. HEAD: Normal with no signs of trauma. RESPIRATORY: Lungs clear bilaterally no rhonchi, rales, or wheezes CARDIAC: S1-S2 audible, no murmur rub or gallop EXTREMITIES: Decreased range of motion to [right] knee related to pain, [no] fluid appreciated, no bulge sign. No pain to superior or inferior patella. Negative drop test. Negative posterior leg test. No joint laxity noted, no ecchymosis, no deformity, no abrasions ,no edema. +3 popliteal pulse. Negative Homans sign. No calf pain or tenderness, no erythema or edema. No bruising MUSCULOSKELETAL: No spinal point tenderness. SKIN: Warm, Dry, normal turgor, no erythema, [no] edema no bruising. Past History - Past Medical History Allergies/Adverse Reactions: Allergies Allergy/AdvReac Type Severity Reaction Status Date / Time No Known Drug Allergies Allergy Verified 03/25/17 14:17 Home Medications: Ambulatory Orders Allopurinol [Zyloprim -] 100 mg PO DAILY 11/28/16 Atorvastatin Ca [Lipitor] 80 mg PO HS 11/28/16 Cinacalcet HCl [Sensipar] 30 mg PO DAILY 11/28/16 Ferrous Sulfate 325 mg PO DAILY 11/28/16 Furosemide [Lasix] 80 mg PO DAILY 11/28/16 Hydralazine HCl 50 mg PO DAILY 11/28/16 Lisinopril 5 mg PO DAILY 11/28/16 Magnesium Oxide [Mag-Ox -] 400 mg PO TID 11/28/16 Nitroglycerin 0.4 mg SL DAILY PRN 11/28/16 Omeprazole 20 mg PO DAILY 11/28/16 Sevelamer Carbonate [Renvela -] 800 mg NR TID 11/28/16 Acetaminophen W/ Codeine #3 [Tylenol # 3 -] 1 tab PO Q6H #20 tablet MDD 4 Anemia: Yes Asthma: No Cancer: No Cardiac Disorders: Yes ("[facility]ent [facility]" CABG x 2 vessels 05/24/2010) CVA: No COPD: No CHF: Yes Dementia: No Diabetes: Yes Dialysis: Yes (,,) GI Disorders: Yes (GERD) Disorders: No HTN: Yes Hypercholesterolemia: Yes Liver Disease: No Seizures: No Thyroid Disease: No - Surgical History Abdominal Surgery: No Appendectomy: No Cardiac Surgery: Yes (CABG 05/2010, cardiac stent may 2013) Cholecystectomy: No Lung Surgery: No Orthopedic Surgery: Yes (transmet amp L foot) - Family Disease History Family Disease History: Diabetes: Mother, Heart Disease: Father - Immunization History Immunization Up to Date: Yes - Suicide/Smoking/Psychosocial Hx Smoking Status: No Smoking History: Former smoker Years of Tobacco Use: 0 Have you smoked in the past 12 months: No Number of Cigarettes Smoked Daily: 2 If you are a former smoker, when did you quit?: 1990 Cigars Per Day: 0 Information on smoking cessation initiated: No 'Breaking Loose' booklet given: 06/04/12 Hx Alcohol Use: No Drug/Substance Use Hx: No Substance Use Type: None Hx Substance Use Treatment: No *Physical Exam - Vital Signs Last Vital Signs Temp Pulse Resp BP Pulse Ox 99.3 F 91 H 16 158/93 99 03/25/17 14:17 03/25/17 14:17 03/25/17 14:17 03/25/17 14:17 03/25/17 14:17 ED Treatment Course - Medications Given in the ED: ED Medications Discontinued Medications Generic Name Dose Route Start Last Admin Trade Name Zach PRN Reason Stop Dose Admin Acetaminophen 650 mg 03/25/17 14:23 03/25/17 14:25 Tylenol - PO 03/25/17 14:24 650 mg ONCE ONE Administration Medical Decision Making - Medical Decision Making 03/25/17 19:52 A/P: Patient status post fall onto right knee now with pain there is no bruising no erythema edema no fluctuance patient is on Plavix and aspirin so there is a concern for bleeding however no evidence of. X-ray was negative no effusion I have placed patient in an immobilizer and he will follow up tomorrow with primary care doctor. If any increased swelling bruising or any other concerns he will return immediately to emergency room. *DC/Admit/Observation/Transfer Diagnosis at time of Disposition: Accidental fall Qualifiers: Encounter type: initial encounter Qualified Code(s): W19.XXXA - Unspecified fall, initial encounter Knee injury Qualifiers: Encounter type: initial encounter Laterality: right Qualified Code(s): S89.91XA - Unspecified injury of right lower leg, initial encounter Shoulder injury Qualifiers: Encounter type: initial encounter Laterality: unspecified laterality Qualified Code(s): S49.90XA - Unspecified injury of shoulder and upper arm, unspecified arm, initial encounter - Discharge Dispostion Disposition: HOME Condition at time of disposition: Stable Admit: No - Prescriptions Prescriptions: Acetaminophen W/ Codeine #3 [Tylenol # 3 -] 1 tab PO Q6H #20 tablet MDD 4 - Referrals Referrals: Yamilka Hernandez MD [Primary Care Provider] - - Patient Instructions Additional Instructions: Knee immobilizer on, follow-up with her primary care doctor for evaluation in 2 days. If any increased pain, swelling, redness, or any other concerns return immediately to ER - Post Discharge Activity
== END 2017-03-25 16:45 | disposition home or self-care (01) ==
LOC: JERFT 13:39
DX: S89.91XA Unspecified injury of right lower leg, initial encounter (principal); S49.90XA Unspecified injury of shoulder and upper arm, unspecified arm, initial encounter; W18.39XA Other fall on same level, initial encounter; Y93.89 Activity, other specified; Y92.9 Unspecified place or not applicable; I25.2 Old myocardial infarction; I50.9 Heart failure, unspecified; K21.9 Gastro-esophageal reflux disease without esophagitis; I10 Essential (primary) hypertension; E78.00 Pure hypercholesterolemia, unspecified; E11.9 Type 2 diabetes mellitus without complications; Z99.2 Dependence on renal dialysis
CPT/HCPCS: 73030-TC-RT; 73562-TC-RT; 99281-25

== ENCOUNTER 2017-04-22 08:56 | Inpatient (IN) | payer OTHER ==
[2017-04-22 09:03] VITALS: BMI 31.9
--- NOTE | 2017-04-22 09:50 | PDOC ---
History of Present Illness - General History Source: Patient, Family Exam Limitations: No Limitations - History of Present Illness Initial Comments: 04/22/17 10:17 The patient is a 51 year old male, with a significant past medical history of hypertension, hyperlipidemia, diabetes, anemia, GERD, silent [place](s/p 2 vessel CABG), CHF and ESRD(on dialysis , S,), who presents to the emergency department s/p unwitnessed mechanical fall earlier this morning. The patient reports he was walking with a walker when his walker rolled out and his left leg gave out, causing him to fall and hit his right knee on the floor and his head on the back of the door. Patient reports associated right knee pain that is sharp in nature and nonradiating. Patient reports similar knee pain about 1 month ago s/p similar fall. Patient reports LOC for several seconds and headache , but denies any associated numbness and tingling, dizziness, lightheadedness, or changes in vision. He denies any chest pain, shortness of breath, diaphoresis , or palpitations. He denies any abdominal pain, nausea, vomiting, diarrhea, or constipation. He denies any dysuria, hematuria, frequency, or urgency. He denies any recent travel or sick contacts. Allergies: NKDA Past Surgical History: Transmet amp L foot, CABG, cardiac stent Social History: Former smoker. No ETOH or recreational drug use Family History: Diabetes: Mother, Heart Disease: Father PCP: Dr. Hernandez <Rodrigo Mclaughlin - Last Filed: 04/22/17 14:07> <Ashley Dumont - Last Filed: 04/24/17 10:47> - General Chief Complaint: Injury Stated Complaint: Injury Time Seen by Provider: 04/22/17 09:36 Past History - Past Medical History Diabetes: Yes (on Novalog and Levemir) <Rodrigo Mclaughlin - Last Filed: 04/22/17 14:07> - Past Medical History Anemia: Yes Asthma: No Cancer: No Cardiac Disorders: Yes ("silent [place]" CABG x 2 vessels 05/24/2010) CVA: No COPD: No CHF: Yes Dementia: No Diabetes: Yes Dialysis: Yes (,,) GI Disorders: Yes (GERD) Disorders: No HTN: Yes Hypercholesterolemia: Yes Liver Disease: No Seizures: No Thyroid Disease: No - Surgical History Abdominal Surgery: No Appendectomy: No Cardiac Surgery: Yes (CABG 05/2010, cardiac stent may 2013) Cholecystectomy: No Lung Surgery: No Orthopedic Surgery: Yes (transmet amp L foot) - Family Disease History Family Disease History: Diabetes: Mother, Heart Disease: Father - Immunization History Immunization Up to Date: Yes - Suicide/Smoking/Psychosocial Hx Smoking Status: No Smoking History: Former smoker Years of Tobacco Use: 0 Have you smoked in the past 12 months: No Number of Cigarettes Smoked Daily: 2 If you are a former smoker, when did you quit?: 1989 Cigars Per Day: 0 Information on smoking cessation initiated: No 'Breaking Loose' booklet given: 06/04/12 Hx Alcohol Use: No Drug/Substance Use Hx: No Substance Use Type: None Hx Substance Use Treatment: No <Ashley Dumont - Last Filed: 04/24/17 10:47> - Past Medical History Allergies/Adverse Reactions: Allergies Allergy/AdvReac Type Severity Reaction Status Date / Time No Known Drug Allergies Allergy Verified 03/25/17 14:17 Home Medications: Ambulatory Orders Allopurinol [Zyloprim -] 100 mg PO DAILY 11/28/16 Atorvastatin Ca [Lipitor] 80 mg PO HS 11/28/16 Cinacalcet HCl [Sensipar] 30 mg PO DAILY 11/28/16 Ferrous Sulfate 325 mg PO DAILY 11/28/16 Furosemide [Lasix] 80 mg PO DAILY 11/28/16 Hydralazine HCl 50 mg PO DAILY 11/28/16 Lisinopril 5 mg PO DAILY 11/28/16 Magnesium Oxide [Mag-Ox -] 400 mg PO TID 11/28/16 Nitroglycerin 0.4 mg SL DAILY PRN 11/28/16 Omeprazole 20 mg PO DAILY 11/28/16 Sevelamer Carbonate [Renvela -] 800 mg NR TID 11/28/16 Acetaminophen W/ Codeine #3 [Tylenol # 3 -] 1 tab PO Q6H #20 tablet MDD 4 Review of Systems - Review of Systems Able to Perform ROS?: Yes Comments:: 04/22/17 10:17 GENERAL/CONSTITUTIONAL: No fever or chills. No weakness. HEAD, EYES, EARS, NOSE AND THROAT: No change in vision. No ear pain or discharge. No sore throat. CARDIOVASCULAR: No chest pain or shortness of breath. RESPIRATORY: No cough, wheezing, or hemoptysis. GASTROINTESTINAL: No nausea, vomiting, diarrhea or constipation. GENITOURINARY: No dysuria, frequency, or change in urination. MUSCULOSKELETAL: Yes right knee pain. No muscle swelling or pain. No neck or back pain. SKIN: No rash NEUROLOGIC: Yes headache, loss of consciousness. No vertigo, lightheadedness or change in strength/sensation. ENDOCRINE: No increased thirst. No abnormal weight change. HEMATOLOGIC/LYMPHATIC: No anemia, easy bleeding, or history of blood clots. ALLERGIC/IMMUNOLOGIC: No hives or skin allergy. <Rodrigo Mclaughlin - Last Filed: 04/22/17 14:07> *Physical Exam - Vital Signs Last Vital Signs Temp Pulse Resp BP Pulse Ox 98.9 F 99 H 20 151/79 99 04/22/17 08:59 04/22/17 08:59 04/22/17 08:59 04/22/17 08:59 04/22/17 08:59 <Rodrigo Mclaughlin - Last Filed: 04/22/17 14:07> - Vital Signs Last Vital Signs Temp Pulse Resp BP Pulse Ox 98.9 F 99 H 20 151/79 99 04/22/17 08:59 04/22/17 08:59 04/22/17 08:59 04/22/17 08:59 04/22/17 08:59 - Physical Exam Comments: GENERAL: Awake, alert, and fully oriented, in no acute distress HEAD: No signs of trauma EYES: PERRLA, EOMI, sclera anicteric, conjunctiva clear ENT: Auricles normal inspection, hearing grossly normal, nares patent, oropharynx clear without exudates. Moist mucosa NECK: Normal ROM, supple, no lymphadenopathy, JVD, or masses LUNGS: Breath sounds equal, clear to auscultation bilaterally. No wheezes, and no crackles HEART: Regular rate and rhythm, normal S1 and S2, no murmurs, rubs or gallops ABDOMEN: Soft, nontender, normoactive bowel sounds. No guarding, no rebound. No masses EXTREMITIES: R knee with medial tenderness at the proximal end of the tibia. + Medial pain with Margareth's test. Remainder of extremities with normal range of motion, no edema. No clubbing or cyanosis. No cords, erythema, or tenderness. + Partial amputation L foot. NEUROLOGICAL: Cranial nerves II through XII grossly intact. Normal speech. Motor and sensation intact. SKIN: Warm, Dry, normal turgor, no rashes or lesions noted. <Ashley Dumont - Last Filed: 04/24/17 10:47> Heart Score/ECG Review - ECG Impressions Comment:: EKG read 11:00- NSR 96 bpm, no acute ST/T changes <Ashley Dumont - Last Filed: 04/24/17 10:47> ED Treatment Course - LABORATORY CBC & Chemistry Diagram: 04/22/17 10:28 04/22/17 10:28 - RADIOLOGY Radiograph Interpretation: 04/22/17 12:40 EXAM: Head CT INTERPRETED BY: Dr. Simmons REVIEWED BY: Dr. Dumont IMPRESSION: Mild volume loss which is more prominent in the high convexity and in the posterior fossa without evidence of acute intracranial pathology. Hyperdense left eye globe that may be due to prior surgery or chronic injury. Cannot rule out hemorrhage, chronic versus acute. Correlate clinically and ophthalmology evaluation is suggested. <Rodrigo Mclaughlin - Last Filed: 04/22/17 14:07> - LABORATORY CBC & Chemistry Diagram: 04/23/17 10:15 04/23/17 10:15 <Ashley Dumont - Last Filed: 04/24/17 10:47> Medical Decision Making - Medical Decision Making 04/22/17 14:07 First call placed to Dr. Scott at 14:07. Awaiting call back. Case discussed with Dr. Scott 14:08. <Rodrigo Mclaughlin - Last Filed: 04/22/17 14:07> - Medical Decision Making Pt with prior partial amputation of L foot, s/p fall with LOC c/o severe R knee pain. Will admit for syncope as well as severe knee pain unable to ambulate. <Ashley Dumont - Last Filed: 04/24/17 10:47> *DC/Admit/Observation/Transfer - Attestations Scribe Attestion: 04/22/17 10:18 Documentation prepared by Rodrigo Mclaughlin, acting as medical affairs director for Ashley Dumont MD. <Rodrigo Mclaughlin - Last Filed: 04/22/17 14:07> - Discharge Dispostion Admit: Yes <Ashley Dumont - Last Filed: 04/24/17 10:47> Diagnosis at time of Disposition: ESRD (end stage renal disease) on dialysis Syncope Qualifiers: Syncope type: unspecified Qualified Code(s): R55 - Syncope and collapse Knee pain Qualifiers: Chronicity: unspecified Laterality: right Qualified Code(s): M25.561 - Pain in right knee - Discharge Dispostion Condition at time of disposition: Stable
[2017-04-22] MEDS ORDERED: morphine CARPU-JECT 4 MG/1 ML DISP.SYRIN IVPUSH ONE ×2 (10:15→13:02)
[2017-04-22] MEDS ORDERED: MORPHINE SULFATE 10 MG/1 ML *VIAL ONE ×2 (10:43→13:46)
[2017-04-22 10:46] LABS: BASO % 1.2 % (0-2.0); EOS % 4.8 % (0-4.5); HEMATOCRIT 34.8 % (35.4-49); HEMOGLOBIN 11.1 GM/dL (11.7-16.9); LYMPH % 13.2 % (8-40); MCH 29.3 pg (25.7-33.7); MCHC 31.9 g/dl (32.0-35.9); MEAN CELL VOLUME 91.8 fl (80-96); MEAN PLT VOLUME 8.1 fl (7.5-11.1); MONO % 8.4 % (3.8-10.2); NEUT % 72.4 % (42.8-82.8); PLATELET COUNT 315 K/MM3 (134-434); RBC 3.79 M/mm3 (4.00-5.60); RDW 17.2 % (11.9-15.9); WHITE BLOOD COUNT 6.2 K/mm3 (4.0-10.0)
[2017-04-22 11:43] LABS: ALBUMIN 3.4 g/dl (3.4-5.0); ALK PHOS 446 U/L (45-117); ANION GAP 10 (8-16); BILIRUBIN,TOTAL 0.4 mg/dL (0.2-1.0); BLOOD UREA NITROGEN 68 mg/dL (7-18); CALCIUM 7.9 mg/dL (8.5-10.1); CHLORIDE 98 mmol/L (98-107); CO2 24 mmol/L (21-32); POTASSIUM 4.5 mmol/L (3.5-5.1); SGOT/AST 9 U/L (15-37); SGPT/ALT 10 U/L (12-78); SODIUM 132 mmol/L (136-145); TOT PROT 7.9 g/dl (6.4-8.2)
[2017-04-22 12:17] LABS: GLUCOSE,RANDOM 334 mg/dL (74-106)
[2017-04-22] MEDS ORDERED: INSULIN REGULAR HUMAN 100 UNITS/ML *VIAL SQ ONE (13:02)
--- NOTE | 2017-04-22 13:06 | EKG ---
Test Reason : Blood Pressure : / mmHG Vent. Rate : 096 BPM Atrial Rate : 096 BPM P-R Int : 184 ms QRS Dur : 096 ms QT Int : 390 ms P-R-T Axes : 066 082 068 degrees QTc Int : 492 ms NORMAL SINUS RHYTHM POSSIBLE LEFT ATRIAL ENLARGEMENT ANTEROSEPTAL INFARCT (CITED ON OR BEFORE 13-DEC-2009) ABNORMAL ECG WHEN COMPARED WITH ECG OF 09-DEC-2016 10:56, QUESTIONABLE CHANGE IN QRS AXIS Confirmed by RONAK MILAN MD ([id number]) on 04/22/2017 1:06:01 PM Referred By: Confirmed By:RONAK MILAN MD
[2017-04-22] MEDS ORDERED: INSULIN NPH 100 UNITS/ML *VIAL ONE (13:44)
[2017-04-22] MEDS ORDERED: HYDROmorphone HCL CARPU-JECT 1 MG/1 ML DISP.SYRIN IVPUSH ONE (16:30)
[2017-04-22] MEDS ORDERED: HYDROmorphone HCl/Pf 2 MG/ML VIAL - FOR OR PYXIS USE ONE (16:36)
[2017-04-22] MEDS ORDERED: ONDANSETRON 4 MG/2 ML VIAL IVPUSH ONE (17:49)
[2017-04-22] MEDS ORDERED: ONDANSETRON 4 MG/2 ML VIAL ONE (18:01)
--- NOTE | 2017-04-22 19:34 | HP ---
Admitting History and Physical - Primary Care Physician PCP: Dr Ovidio Vivas - Admission History of Present Illness: The patient is a 51 year old male, with a significant past medical history of hypertension, hyperlipidemia, diabetes, anemia, GERD, silent [place](s/p 2 vessel CABG), CHF and ESRD(on dialysis T, Th S,), who presents to the emergency department s/p unwitnessed mechanical fall earlier this morning. The patient reports he was walking with a walker when his walker rolled out and his left leg gave out, causing him to fall and hit his right knee on the floor and his head on the back of the door. Patient reports associated right knee pain that is sharp in nature and nonradiating. Patient reports similar knee pain about 1 month ago s/p similar fall. Patient reports LOC for several seconds and headache , but denies any associated numbness and tingling, dizziness, lightheadedness, or changes in vision. He denies any chest pain, shortness of breath, diaphoresis , or palpitations. He denies any abdominal pain, nausea, vomiting, diarrhea, or constipation. He denies any dysuria, hematuria, frequency, or urgency. He denies any recent travel or sick contacts. History Source: Patient Limitations to Obtaining History: No Limitations - Past Medical History Cardiovascular: Yes: CAD, CHF (normal ejection fraction; poor LV compliance; no valvular abnormalities), HTN, Hyperlipdemia. No: AFIB, Aneurysm, Aortic Insufficiency, Aortic Stenosis, Deep Vein Thrombosis, [place], Mitral Insufficiency, Mitral Stenosis, Murmur, Pulmonary Hypertension, Other Gastrointestinal: Yes: GERD, GI Bleed. No: Constipation, Crohn's Disease, Diverticulitis, Diverticulosis, Esophageal Varices, Gastritis, Hemorrhoids, Hiatal Hernia, Inflamatory Bowel Disease, Irritable Bowel Disease, Pancreatitis , Peptic Ulcer Disease, Ulcerative Colitis, Other Renal/: Yes: Renal Failure, Hemodialysis (ESRD on HD MWF via L arm AVF) Heme/Onc: No: Anemia, B12 Deficiency, Bleeding Disorder, Cancer, Current Chemotherapy, Current Radiation Therapy, Hemochromatosis, Hypercoaguable State, Myeloproliferative Synd, Sickle Cell Disease, Sickle Cell Trait, Thrombocytopenia, Other Psych: Yes: Anxiety Musculoskeletal: Yes: Other (left metatarsal amputation). No: Bursitis, Chronic low back pain, Hemiparesis, Hemiplegia, Osteoarthritis, Paraplegia Rheumatology: Yes: Gout Endocrine: Yes: Diabetes Mellitus. No: [place]'s Disease, [place]'s Disease, Diabetes Insipidus, Hyperparathyroidism, Hyperthyroidism, Hypothyroidism, Osteopenia, SIADH, Other - Past Surgical History Past Surgical History: Yes: Amputation (Left Transmetatarsal), AV Fistula/Graft , CABG (05/2010), Stent (s/p cardiac cath with stent placement). No: None, AAA Repair, AICD, Appendectomy, Arthrosocopy, Bariatric Surgery, Breast Biopsy, Bypass, Carotid Endarterectomy, Cataract Removal, Cholecystectomy, Colectomy, Colonoscopy, Colostomy, Craniotomy, , Cystectomy, Hernia Repair, Hysterectomy, Ileal Conduit, Ileosotomy, Joint Replacement, Kidney Transplant, Laminectomy, Liver Transplant, Mastectomy, Nephrectomy, Oopherectomy, Orchiectomy, Permanent Pacemaker, Prostatectomy, Splenectomy, Thoracotomy, TURP , Tonsillectomy, Tubal Ligation, Upper Endoscopy, Valve Replacement, Vasectomy, Vein Stripping/Ligation - Smoking History Smoking history: Former smoker Have you smoked in the past 12 months: No Aproximately how many cigarettes per day: 2 If you are a former smoker, when did you quit?: 1989 - Alcohol/Substance Use Hx Alcohol Use: No History of Substance Use: reports: None - Social History ADL: Independent 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 History of Recent Travel: No Home Medications - Allergies Allergies/Adverse Reactions: Allergies Allergy/AdvReac Type Severity Reaction Status Date / Time No Known Drug Allergies Allergy Verified 03/25/17 14:17 - Home Medications Home Medications: Ambulatory Orders Allopurinol [Zyloprim -] 100 mg PO DAILY 11/28/16 Atorvastatin Ca [Lipitor] 80 mg PO HS 11/28/16 Cinacalcet HCl [Sensipar] 30 mg PO DAILY 11/28/16 Ferrous Sulfate 325 mg PO DAILY 11/28/16 Furosemide [Lasix] 80 mg PO DAILY 11/28/16 Hydralazine HCl 50 mg PO DAILY 11/28/16 Lisinopril 5 mg PO DAILY 11/28/16 Magnesium Oxide [Mag-Ox -] 400 mg PO TID 11/28/16 Nitroglycerin 0.4 mg SL DAILY PRN 11/28/16 Omeprazole 20 mg PO DAILY 11/28/16 Sevelamer Carbonate [Renvela -] 800 mg NR TID 11/28/16 Acetaminophen W/ Codeine #3 [Tylenol # 3 -] 1 tab PO Q6H #20 tablet MDD 4 Family Disease History - Family Disease History Family Disease History: Diabetes: Father, Mother, Other: Father, Mother Physical Examination Vital Signs: Vital Signs Temperature 98.2 F 04/22/17 16:04 Pulse Rate 82 04/22/17 16:04 Respiratory Rate 18 04/22/17 16:04 Blood Pressure 158/83 04/22/17 16:04 O2 Sat by Pulse Oximetry (%) 100 04/22/17 16:04 Labs: CBC, BMP 04/22/17 10:28 04/22/17 10:28 Problem List - Problems (1) Syncope Code(s): R55 - SYNCOPE AND COLLAPSE Qualifiers: Syncope type: unspecified Qualified Code(s): R55 - Syncope and collapse (2) Fall Code(s): W19.XXXA - UNSPECIFIED FALL, INITIAL ENCOUNTER (3) ESRD (end stage renal disease) on dialysis Code(s): N18.6 - END STAGE RENAL DISEASE; Z99.2 - DEPENDENCE ON RENAL DIALYSIS (4) Chronic osteomyelitis of cervical spine Code(s): M46.22 - OSTEOMYELITIS OF [place], CERVICAL REGION (5) Anemia in ESRD (end-stage renal disease) Code(s): N18.6 - END STAGE RENAL DISEASE; D63.1 - ANEMIA IN CHRONIC KIDNEY DISEASE (6) COPD exacerbation Code(s): J44.1 - CHRONIC OBSTRUCTIVE PULMONARY DISEASE W (ACUTE) EXACERBATION
[2017-04-22] MEDS ORDERED: ALBUTEROL SO4 18 GM HFA INHALER IH PRN (19:45)
[2017-04-22] MEDS: SEVELAMER CARBONATE 800 MG TAB (FP) PO SCH (20:43)
[2017-04-22] MEDS: ATORVASTATIN CA 80 MG TABLET (FP) PO SCH (21:27)
[2017-04-22] MEDS: INSULIN DETEMIR 100 UNITS/ML MDV SQ SCH (21:27)
[2017-04-22] MEDS: MAGNESIUM OXIDE 400 MG TABLET (FP) PO SCH (21:28)
[2017-04-22] MEDS: BUDESONIDE/FORMETEROL FUMARATE 160/4.5 mcg INHALER IH SCH (21:28)
[2017-04-22] MEDS: hydrALAZINE HCL 25 MG TABLET (FP) PO SCH (21:28)
[2017-04-22] MEDS: traMADol HCL 50 MG TABLET PO SCH (21:30)
[2017-04-22] MEDS ORDERED: INSULIN (NOVOLOG) ASPART 100 UNITS/ML 10ML VIAL SQ SCH (22:00)
[2017-04-22] MEDS: BACITRACIN 15 GM TUBE TOPICAL OINTMENT TP SCH (22:48)
[2017-04-22] MEDS ORDERED: PT OWN MED DRAWER 7, Y5N ONE (23:23)
[2017-04-23] MEDS: traMADol HCL 50 MG TABLET PO SCH ×3 (06:29→21:55)
[2017-04-23] MEDS: hydrALAZINE HCL 25 MG TABLET (FP) PO SCH ×3 (06:30→22:00)
[2017-04-23] MEDS: INSULIN (NOVOLOG) ASPART 100 UNITS/ML 10ML VIAL SQ SCH ×3 (06:30→17:33)
[2017-04-23] MEDS: LISINOPRIL 5 MG TABLET (FP) PO SCH ×2 (08:44→14:24)
[2017-04-23 11:42] LABS: BASO % 1.2 % (0-2.0); EOS % 6.3 % (0-4.5); HEMATOCRIT 31.5 % (35.4-49); HEMOGLOBIN 10.5 GM/dL (11.7-16.9); LYMPH % 11.7 % (8-40); MCH 30.7 pg (25.7-33.7); MCHC 33.4 g/dl (32.0-35.9); MEAN CELL VOLUME 91.9 fl (80-96); MEAN PLT VOLUME 8.1 fl (7.5-11.1); MONO % 4.8 % (3.8-10.2); PLATELET COUNT 286 K/MM3 (134-434); RBC 3.42 M/mm3 (4.00-5.60); RDW 16.8 % (11.9-15.9); WHITE BLOOD COUNT 4.3 K/mm3 (4.0-10.0)
[2017-04-23 12:06] LABS: ALBUMIN 3.2 g/dl (3.4-5.0); ANION GAP 12 (8-16); BILIRUBIN,TOTAL 0.4 mg/dL (0.2-1.0); BLOOD UREA NITROGEN 79 mg/dL (7-18); CHLORIDE 98 mmol/L (98-107); CO2 24 mmol/L (21-32); GLUCOSE,RANDOM 167 mg/dL (74-106); POTASSIUM 5.4 mmol/L (3.5-5.1); SGOT/AST 8 U/L (15-37); SGPT/ALT 8 U/L (12-78); SODIUM 134 mmol/L (136-145); TOT PROT 7.3 g/dl (6.4-8.2)
[2017-04-23 12:11] LABS: ALK PHOS 384 U/L (45-117)
[2017-04-23 12:38] LABS: CREATININE 8.8 mg/dL (0.7-1.3)
--- NOTE | 2017-04-23 14:14 | PN ---
Progress Note, Physician - Current Medication List Current Medications: Active Medications Albuterol Sulfate (Ventolin Hfa Inhaler -) 2 puff IH Q6H PRN PRN Reason: ASTHMA Allopurinol (Zyloprim -) 100 mg PO DAILY [facility] Atorvastatin Calcium (Lipitor -) 80 mg PO HS [facility] Last Admin: 04/22/17 21:27 Dose: 80 mg Bacitracin (Bacitracin -) 1 applic TP BID [facility] Last Admin: 04/22/17 22:48 Dose: 1 applic Budesonide/Formoterol Fumarate (Symbicort 160/4.5mcg -) 2 puff IH BID [facility] Last Admin: 04/22/17 21:28 Dose: 2 puff Cinacalcet (Sensipar -) 30 mg PO DAILY [facility] Hydralazine HCl (Apresoline -) 25 mg PO TID [facility] Last Admin: 04/23/17 06:30 Dose: 25 mg Insulin Aspart (Novolog Vial) 6 units SQ TIDAC [facility] Last Admin: 04/23/17 06:30 Dose: 6 units Insulin Detemir (Levemir Vial) 15 units SQ [facility] Last Admin: 04/22/17 21:27 Dose: 15 units Lisinopril (Prinivil) 5 mg PO DAILY [facility] Last Admin: 04/23/17 08:44 Dose: 5 mg Magnesium Oxide (Mag-Ox -) 400 mg PO BID [facility] Last Admin: 04/22/17 21:28 Dose: 400 mg Sevelamer Carbonate (Renvela -) 800 mg PO TIDCM [facility] Last Admin: 04/22/17 20:43 Dose: Not Given Tramadol HCl (Ultram -) 50 mg PO TID [facility] Last Admin: 04/23/17 06:29 Dose: 50 mg - Objective Vital Signs: Vital Signs Temperature 98.9 F 04/23/17 13:20 Pulse Rate 93 H 04/23/17 13:50 Respiratory Rate 18 04/23/17 13:50 Blood Pressure 121/77 04/23/17 13:50 O2 Sat by Pulse Oximetry (%) 94 L 04/23/17 08:10 Labs: CBC, BMP 04/23/17 10:15 04/23/17 10:15 Problem List - Problems (1) Syncope Code(s): R55 - SYNCOPE AND COLLAPSE Qualifiers: Syncope type: unspecified Qualified Code(s): R55 - Syncope and collapse (2) Fall Code(s): W19.XXXA - UNSPECIFIED FALL, INITIAL ENCOUNTER (3) ESRD (end stage renal disease) on dialysis Code(s): N18.6 - END STAGE RENAL DISEASE; Z99.2 - DEPENDENCE ON RENAL DIALYSIS (4) Chronic osteomyelitis of cervical spine Code(s): M46.22 - OSTEOMYELITIS OF [place], CERVICAL REGION (5) Anemia in ESRD (end-stage renal disease) Code(s): N18.6 - END STAGE RENAL DISEASE; D63.1 - ANEMIA IN CHRONIC KIDNEY DISEASE (6) COPD exacerbation Code(s): J44.1 - CHRONIC OBSTRUCTIVE PULMONARY DISEASE W (ACUTE) EXACERBATION
[2017-04-23] MEDS: BACITRACIN 15 GM TUBE TOPICAL OINTMENT TP SCH ×2 (14:23→22:00)
[2017-04-23] MEDS: SEVELAMER CARBONATE 800 MG TAB (FP) PO SCH ×3 (14:23→17:33)
[2017-04-23] MEDS: MAGNESIUM OXIDE 400 MG TABLET (FP) PO SCH ×2 (14:24→21:59)
[2017-04-23] MEDS: ALLOPURINOL 100 MG TABLET (FP) PO SCH (14:24)
[2017-04-23] MEDS ORDERED: PT OWN MED DRAWER 7, Y5N ONE ×2 (14:59→21:43)
[2017-04-23] MEDS: BUDESONIDE/FORMETEROL FUMARATE 160/4.5 mcg INHALER IH SCH ×2 (15:09→21:59)
[2017-04-23] MEDS: CINACALCET HCL 30 MG TAB (FP) PO SCH (15:09)
--- NOTE | 2017-04-23 15:28 | CONSULT ---
Consult - text type - Consultation Consultation Note: Renal Consult for ESRD on HD This is a 51 year old gentleman with PMhx of ESRD on HD (TTS), Hypertension, CAD , CHF who presented s/p mechanical fall at home with knee and head trauma with persistent knee pain and swelling. Pt denies any LOC, dizziness prior to the fall. NO Hx of CP, Abd pain, N/V/D. PT tolerated dialysis as a inpatient this am w/o complication. PMhx: as above Allergies: NKDA Family hx: [place] Social Hx: No T/A/D ROS: as per HPI, all other pertinet ros negative Home Medications Medication Instructions Recorded Allopurinol [Zyloprim -] 100 mg PO DAILY 11/28/16 Atorvastatin Ca [Lipitor] 80 mg PO HS 11/28/16 Cinacalcet HCl [Sensipar] 30 mg PO DAILY 11/28/16 Ferrous Sulfate 325 mg PO DAILY 11/28/16 Furosemide [Lasix] 80 mg PO DAILY 11/28/16 Hydralazine HCl 50 mg PO DAILY 11/28/16 Lisinopril 5 mg PO DAILY 11/28/16 Magnesium Oxide [Mag-Ox -] 400 mg PO TID 11/28/16 Nitroglycerin 0.4 mg SL DAILY PRN 11/28/16 Omeprazole 20 mg PO DAILY 11/28/16 Sevelamer Carbonate [Renvela -] 800 mg NR TID 11/28/16 Acetaminophen W/ Codeine #3 1 tab PO Q6H #20 tablet MDD 4 03/25/17 [Tylenol # 3 -] Vital Signs Temperature 98.9 F 04/23/17 13:20 Pulse Rate 93 H 04/23/17 13:50 Respiratory Rate 18 04/23/17 13:50 Blood Pressure 121/77 04/23/17 13:50 O2 Sat by Pulse Oximetry (%) 94 L 04/23/17 08:10 Intake & Output 04/20/17 04/21/17 04/22/17 04/23/17 23:59 23:59 23:59 23:59 Intake Total 120 380 Balance 120 380 Weight 92.533 kg NAD awake and alert RRR, No M/R CTA soft NT/ND right knee tenderness, mild swelling left TMA amputation no edema, clubbing or cyanosis CBC, BMP 04/23/17 10:15 04/23/17 10:15 Current Medications Albuterol Sulfate (Ventolin Hfa Inhaler -) 2 puff IH Q6H PRN PRN Reason: ASTHMA Allopurinol (Zyloprim -) 100 mg PO DAILY [facility] Last Admin: 04/23/17 14:24 Dose: 100 mg Atorvastatin Calcium (Lipitor -) 80 mg PO HS [facility] Last Admin: 04/22/17 21:27 Dose: 80 mg Bacitracin (Bacitracin -) 1 applic TP BID [facility] Last Admin: 04/23/17 14:23 Dose: 1 applic Budesonide/Formoterol Fumarate (Symbicort 160/4.5mcg -) 2 puff IH BID [facility] Last Admin: 04/23/17 15:09 Dose: 2 puff Cinacalcet (Sensipar -) 30 mg PO DAILY [facility] Last Admin: 04/23/17 15:09 Dose: 30 mg Hydralazine HCl (Apresoline -) 25 mg PO TID [facility] Last Admin: 04/23/17 14:27 Dose: 25 mg Insulin Aspart (Novolog Vial) 6 units SQ TIDAC [facility] Last Admin: 04/23/17 14:26 Dose: Not Given Insulin Detemir (Levemir Vial) 15 units SQ [facility] Last Admin: 04/22/17 21:27 Dose: 15 units Lisinopril (Prinivil) 5 mg PO DAILY [facility] Last Admin: 04/23/17 14:24 Dose: Not Given Magnesium Oxide (Mag-Ox -) 400 mg PO BID [facility] Last Admin: 04/23/17 14:24 Dose: 400 mg Sevelamer Carbonate (Renvela -) 800 mg PO TIDCM [facility] Last Admin: 04/23/17 14:23 Dose: 800 mg Tramadol HCl (Ultram -) 50 mg PO TID [facility] Last Admin: 04/23/17 14:25 Dose: 50 mg 51 year old gentleman with PMhx of ESRD on HD (TTS), Hypertension, CAD, CHF who presented s/p mechanical fall at home with knee and head trauma with persistent knee pain and swelling. #Mechanical Fall supportive care imaging studies of the knee as per primary pain control fall precautions #ESRD on HD s/p dialysis this am as inpatient tolerated it well Renal diet 1.2L fluid restriction dose all meds for intermittent HD #Renal Osteodystrophy continue Renvela and SEnsipar trend ca and phos levels #Hypertension continue Lisinopril, Hydralzine Thank you Antwan Hurley DO
[2017-04-23] MEDS: ATORVASTATIN CA 80 MG TABLET (FP) PO SCH (22:00)
[2017-04-23] MEDS: INSULIN DETEMIR 100 UNITS/ML MDV SQ SCH (22:04)
[2017-04-24 06:08] LABS: HBSAG SCREEN Negative (Negative); HEP B CORE AB, TOT Negative (Negative)
[2017-04-24] MEDS: INSULIN (NOVOLOG) ASPART 100 UNITS/ML 10ML VIAL SQ SCH ×3 (06:37→16:57)
[2017-04-24] MEDS: hydrALAZINE HCL 25 MG TABLET (FP) PO SCH ×3 (06:37→21:20)
[2017-04-24] MEDS: traMADol HCL 50 MG TABLET PO SCH ×3 (06:38→21:21)
[2017-04-24] MEDS ORDERED: PT OWN MED DRAWER 7, Y5N ONE ×2 (10:37→21:35)
[2017-04-24] MEDS: CINACALCET HCL 30 MG TAB (FP) PO SCH (10:40)
[2017-04-24] MEDS: LISINOPRIL 5 MG TABLET (FP) PO SCH (10:40)
[2017-04-24] MEDS: BACITRACIN 15 GM TUBE TOPICAL OINTMENT TP SCH ×2 (10:40→21:21)
[2017-04-24] MEDS: ALLOPURINOL 100 MG TABLET (FP) PO SCH (10:41)
[2017-04-24] MEDS: MAGNESIUM OXIDE 400 MG TABLET (FP) PO SCH ×2 (10:41→21:21)
[2017-04-24] MEDS: BUDESONIDE/FORMETEROL FUMARATE 160/4.5 mcg INHALER IH SCH ×2 (10:42→21:21)
[2017-04-24] MEDS: SEVELAMER CARBONATE 800 MG TAB (FP) PO SCH ×3 (10:43→17:01)
--- NOTE | 2017-04-24 12:22 | PN ---
Progress Note (short form) - Note Progress Note: Renal Follow up for ESRD on HD Pt seen and examined at the bedside awake and alert no sob, chest pain, abd pain s/p dialysis yesterday continues to have pain and discomfort in his knee Vital Signs Temperature 99.3 F 04/24/17 10:00 Pulse Rate 96 H 04/24/17 10:00 Respiratory Rate 19 04/24/17 10:00 Blood Pressure 132/76 04/24/17 10:00 O2 Sat by Pulse Oximetry (%) 96 04/24/17 09:00 Intake & Output 04/21/17 04/22/17 04/23/17 04/24/17 23:59 23:59 23:59 23:59 Intake Total 120 1040 0 Output Total 225 Balance 120 815 0 Weight 92.533 kg NAD awake and alert RRR CTA NO LE edema CBC, BMP 04/23/17 10:15 04/23/17 10:15 Current Medications Albuterol Sulfate (Ventolin Hfa Inhaler -) 2 puff IH Q6H PRN PRN Reason: ASTHMA Allopurinol (Zyloprim -) 100 mg PO DAILY [facility] Last Admin: 04/24/17 10:41 Dose: 100 mg Atorvastatin Calcium (Lipitor -) 80 mg PO HS [facility] Last Admin: 04/23/17 22:00 Dose: 80 mg Bacitracin (Bacitracin -) 1 applic TP BID [facility] Last Admin: 04/24/17 10:40 Dose: 1 applic Budesonide/Formoterol Fumarate (Symbicort 160/4.5mcg -) 2 puff IH BID [facility] Last Admin: 04/24/17 10:42 Dose: 2 puff Cinacalcet (Sensipar -) 30 mg PO DAILY [facility] Last Admin: 04/24/17 10:40 Dose: 30 mg Hydralazine HCl (Apresoline -) 25 mg PO TID [facility] Last Admin: 04/24/17 06:37 Dose: 25 mg Insulin Aspart (Novolog Vial) 6 units SQ TIDAC [facility] Last Admin: 04/24/17 11:58 Dose: 6 units Insulin Detemir (Levemir Vial) 15 units SQ HS [facility] Last Admin: 04/23/17 22:04 Dose: Not Given Lisinopril (Prinivil) 5 mg PO DAILY [facility] Last Admin: 04/24/17 10:40 Dose: 5 mg Magnesium Oxide (Mag-Ox -) 400 mg PO BID [facility] Last Admin: 04/24/17 10:41 Dose: 400 mg Sevelamer Carbonate (Renvela -) 800 mg PO TIDCM [facility] Last Admin: 04/24/17 11:58 Dose: 800 mg Tramadol HCl (Ultram -) 50 mg PO TID [facility] Last Admin: 04/24/17 06:38 Dose: 50 mg 51 year old gentleman with PMhx of ESRD on HD (TTS), Hypertension, CAD, CHF who presented s/p mechanical fall at home with knee and head trauma with persistent knee pain and swelling. #Mechanical Fall MRI showed high grade tear of the Quad Tendon, Transverse fracture of the patella and possible ACL tear supportive care, pain control orthopedics follow up #ESRD on HD s/p dialysis yesterday no acute indication for treatmetn today next dialysis in AM Renal diet #Renal Osteodystrophy continue Renvela and SEnsipar trend ca and phos levels #Hypertension continue Lisinopril, Hydralzine Thank you Antwan Hurley DO
[2017-04-24] MEDS ORDERED: ONDANSETRON 4 MG/2 ML VIAL IM PRN (14:13)
--- NOTE | 2017-04-24 18:35 | PN ---
Progress Note, Physician - Current Medication List Current Medications: Active Medications Albuterol Sulfate (Ventolin Hfa Inhaler -) 2 puff IH Q6H PRN PRN Reason: ASTHMA Allopurinol (Zyloprim -) 100 mg PO DAILY [facility] Last Admin: 04/24/17 10:41 Dose: 100 mg Atorvastatin Calcium (Lipitor -) 80 mg PO HS [facility] Last Admin: 04/23/17 22:00 Dose: 80 mg Bacitracin (Bacitracin -) 1 applic TP BID [facility] Last Admin: 04/24/17 10:40 Dose: 1 applic Budesonide/Formoterol Fumarate (Symbicort 160/4.5mcg -) 2 puff IH BID [facility] Last Admin: 04/24/17 10:42 Dose: 2 puff Cinacalcet (Sensipar -) 30 mg PO DAILY [facility] Last Admin: 04/24/17 10:40 Dose: 30 mg Docusate Sodium (Colace -) [address] [facility] Hydralazine HCl (Apresoline -) 25 mg PO TID [facility] Last Admin: 04/24/17 13:19 Dose: 25 mg Insulin Aspart (Novolog Vial) 6 units SQ TIDAC [facility] Last Admin: 04/24/17 16:57 Dose: 6 units Insulin Detemir (Levemir Vial) [address] [facility] Last Admin: 04/23/17 22:04 Dose: Not Given Lisinopril (Prinivil) 5 mg PO DAILY [facility] Last Admin: 04/24/17 10:40 Dose: 5 mg Magnesium Oxide (Mag-Ox -) 400 mg PO BID [facility] Last Admin: 04/24/17 10:41 Dose: 400 mg Ondansetron HCl (Zofran Injection) 4 mg IM Q8H PRN PRN Reason: NAUSEA AND/OR VOMITING Last Admin: 04/24/17 14:20 Dose: 4 mg Sevelamer Carbonate (Renvela -) 800 mg PO TIDCM [facility] Last Admin: 04/24/17 17:01 Dose: 800 mg Tramadol HCl (Ultram -) 50 mg PO TID [facility] Last Admin: 04/24/17 13:18 Dose: 50 mg - Objective Vital Signs: Vital Signs Temperature 98.5 F 04/24/17 13:25 Pulse Rate 89 04/24/17 13:25 Respiratory Rate 20 04/24/17 13:25 Blood Pressure 132/71 04/24/17 13:25 O2 Sat by Pulse Oximetry (%) 96 04/24/17 09:00 Labs: CBC, BMP 04/23/17 10:15 04/23/17 10:15 Problem List - Problems (1) Syncope Code(s): R55 - SYNCOPE AND COLLAPSE Qualifiers: Syncope type: unspecified Qualified Code(s): R55 - Syncope and collapse (2) Fall Code(s): W19.XXXA - UNSPECIFIED FALL, INITIAL ENCOUNTER (3) ESRD (end stage renal disease) on dialysis Code(s): N18.6 - END STAGE RENAL DISEASE; Z99.2 - DEPENDENCE ON RENAL DIALYSIS (4) Chronic osteomyelitis of cervical spine Code(s): M46.22 - OSTEOMYELITIS OF [place], CERVICAL REGION (5) Anemia in ESRD (end-stage renal disease) Code(s): N18.6 - END STAGE RENAL DISEASE; D63.1 - ANEMIA IN CHRONIC KIDNEY DISEASE (6) COPD exacerbation Code(s): J44.1 - CHRONIC OBSTRUCTIVE PULMONARY DISEASE W (ACUTE) EXACERBATION
[2017-04-24] MEDS: ATORVASTATIN CA 80 MG TABLET (FP) PO SCH (21:20)
[2017-04-24] MEDS: HEPARIN NA (PORCINE) 5,000 UNITS/ML 1ML VIAL SQ SCH (21:21)
[2017-04-24] MEDS: DOCUSATE SODIUM 100 MG CAPSULE (FP) PO SCH (21:21)
[2017-04-24] MEDS: INSULIN DETEMIR 100 UNITS/ML MDV SQ SCH (21:33)
[2017-04-24] MEDS ORDERED: oxyCODONE HCL 5 MG TABLET PO ONE (23:15)
[2017-04-24] MEDS ORDERED: ACETAMINOPHEN 325 MG TABLET (FP) PO ONE (23:15)
[2017-04-25] MEDS: ONDANSETRON 4 MG/2 ML VIAL IVPUSH PRN (05:05)
[2017-04-25] MEDS: hydrALAZINE HCL 25 MG TABLET (FP) PO SCH ×3 (06:11→21:12)
[2017-04-25] MEDS: HEPARIN NA (PORCINE) 5,000 UNITS/ML 1ML VIAL SQ SCH ×3 (06:11→21:11)
[2017-04-25] MEDS: traMADol HCL 50 MG TABLET PO SCH ×2 (06:11→16:04)
[2017-04-25] MEDS: INSULIN (NOVOLOG) ASPART 100 UNITS/ML 10ML VIAL SQ SCH ×3 (06:20→16:05)
--- NOTE | 2017-04-25 07:42 | CONS ---
DATE OF CONSULTATION: 04/24/2017 CHIEF COMPLAINT: Right knee pain. HISTORY OF PRESENT ILLNESS: This is a pleasant 51-year-old gentleman who had suffered a trip and a fall. He states that the left leg had given out, causing him to fall. He did have a similar fall on the right knee about a month ago and reports similar pain. He does report losing consciousness after the fall. He notes that the pain has not improved at all. He did have MRI performed and has been placed into a knee immobilizer to this point. PAST MEDICAL HISTORY: Significant for hypertension, hyperlipidemia, diabetes, anemia, GERD, SD, status post CABG, CHF, end-stage renal disease. PAST SURGICAL HISTORY: Significant for a transmetatarsal amputation of the left foot, CABG and cardiac stents. SOCIAL HISTORY: Significant for former smoker but no current alcohol or tobacco or drugs. FAMILY HISTORY: Significant for diabetes on his mother's side and heart disease on his father's side. MEDICATIONS: Reviewed, as on chart. PHYSICAL EXAMINATION: General: This is a well-appearing male in no acute distress. He is alert and oriented x3. He is seen lying on the hospital bed. Extremities: Examination of the right lower extremity demonstrates no skin lesions. There is diffuse swelling about the knee. There is palpable effusion. He is tender over the body of the patella. He is tender over the quadriceps tendon without palpable gap. He is unable to straight leg raise. Distally, sensation is intact to light touch. Thready DP pulse. EHL, FHL are intact. IMAGING: MRI images and report are reviewed. There is a high-grade partial tear of the quadriceps tendon without retraction of the tendon. There is a nondisplaced fracture at the inferior pole of the patella. There is a large effusion. There is degenerative change of the ACL. Mild degenerative change of the knee as well. ASSESSMENT: Right patella fracture, partial quadriceps tendon rupture. PLAN: I discussed today's findings with the patient. I reviewed that the MRI demonstrates injury to the quadriceps tendon and to the patella. However, neither of these injuries is displaced. Given this finding, I do believe that it would heal with nonoperative care. In order to provide the best immobilization possible and allow him to mobilize, I am placing him into a cylinder-type cast. He may weightbear as tolerated. Given his underlying medical conditions and risk for skin breakdown, I believe we should check in 3 weeks to ensure that there is no skin breakdown under the cast. If he feels any discomfort, we will have to check earlier. I reviewed that if his extensor mechanism fails to restore integrity by closed means it is possible that he could require later surgical repair, although I doubt this will be the case. I addressed all the patient's questions and concerns. He voiced understanding and is in agreement with the plan. VONDA BASURTO M.D. [facility]/[id number]
[2017-04-25] MEDS: SEVELAMER CARBONATE 800 MG TAB (FP) PO SCH ×3 (08:00→17:22)
--- NOTE | 2017-04-25 08:26 | CON.CARD ---
Consult Consult Specialty:: Cardiology for Dr. Álvarez Referred by:: Hospitalist Reason for Consultation:: Preop and syncope - History of Present Illness Chief Complaint: syncope, leg injury History of Present Illness: 51 y.o. with a PMH of MRSA, cervical osteomyelitis, hypertension, CHF (ECHO : diastolic dysfunction; normal LVEF), silent MO s/p CABG x 2 vessels (2010), cardiac stent (2013), ESRD (on Dialysis T,R,S), anemia and hyperlipidema as well as an extended ICU admission for pneumonia at an outside institution in December 2015 presents c/o of syncope, fall, RLE injury. states he was walking with his walker, felt dizzy, lost consciousness and fell on his RLE. - History Source History Provided By: Patient, Medical Record Limitations to Obtaining History: No Limitations - Past Medical History Cardio/Vascular: Yes: CAD, CHF (normal ejection fraction; poor LV compliance; no valvular abnormalities), HTN, Hyperlipdemia. No: AFIB, Aneurysm, Aortic Insufficiency, Aortic Stenosis, Deep Vein Thrombosis, [place], Mitral Insufficiency, Mitral Stenosis, Murmur, Pulmonary Hypertension, Other Gastrointestinal: Yes: GERD, GI Bleed. No: Constipation, Crohn's Disease, Diverticulitis, Diverticulosis, Esophageal Varices, Gastritis, Hemorrhoids, Hiatal Hernia, Inflamatory Bowel Disease, Irritable Bowel Disease, Pancreatitis , Peptic Ulcer Disease, Ulcerative Colitis, Other Renal/: Yes: Renal Failure, Hemodialysis (ESRD on HD MWF via L arm AVF) Psych: Yes: Anxiety Musculoskeletal: Yes: Other (left metatarsal amputation). No: Bursitis, Chronic low back pain, Hemiparesis, Hemiplegia, Osteoarthritis, Paraplegia Rheumatology: Yes: Gout Endocrine: Yes: Diabetes Mellitus. No: Mickey's Disease, [place]'s Disease, Diabetes Insipidus, Hyperparathyroidism, Hyperthyroidism, Hypothyroidism, Osteopenia, SIADH, Other Additional Medical History: as above in HPI; L eye blindness; on renal transplant list at [facility]. bilateral detached retinas - Past Surgical History Past Surgical History: Yes: Amputation (Left Transmetatarsal), AV Fistula/Graft , CABG (05/2010), Stent (s/p cardiac cath with stent placement). No: None, AAA Repair, AICD, Appendectomy, Arthrosocopy, Bariatric Surgery, Breast Biopsy, Bypass, Carotid Endarterectomy, Cataract Removal, Cholecystectomy, Colectomy, Colonoscopy, Colostomy, Craniotomy, , Cystectomy, Hernia Repair, Hysterectomy, Ileal Conduit, Ileosotomy, Joint Replacement, Kidney Transplant, Laminectomy, Liver Transplant, Mastectomy, Nephrectomy, Oopherectomy, Orchiectomy, Permanent Pacemaker, Prostatectomy, Splenectomy, Thoracotomy, TURP , Tonsillectomy, Tubal Ligation, Upper Endoscopy, Valve Replacement, Vasectomy, Vein Stripping/Ligation - Alcohol/Substance Use Hx Alcohol Use: No History of Substance Use: reports: None - Smoking History Smoking history: Former smoker Have you smoked in the past 12 months: No Aproximately how many cigarettes per day: 2 If you are a former smoker, when did you quit?: 1989 - Social History Usual Living Arrangement: With Spouse ADL: Independent 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 History of Recent Travel: No Home Medications - Allergies Allergies/Adverse Reactions: Allergies Allergy/AdvReac Type Severity Reaction Status Date / Time No Known Drug Allergies Allergy Verified 03/25/17 14:17 - Home Medications Home Medications: Ambulatory Orders Allopurinol [Zyloprim -] 100 mg PO DAILY 11/28/16 Atorvastatin Ca [Lipitor] 80 mg PO HS 11/28/16 Cinacalcet HCl [Sensipar] 30 mg PO DAILY 11/28/16 Ferrous Sulfate 325 mg PO DAILY 11/28/16 Furosemide [Lasix] 80 mg PO DAILY 11/28/16 Hydralazine HCl 50 mg PO DAILY 11/28/16 Lisinopril 5 mg PO DAILY 11/28/16 Magnesium Oxide [Mag-Ox -] 400 mg PO TID 11/28/16 Nitroglycerin 0.4 mg SL DAILY PRN 11/28/16 Omeprazole 20 mg PO DAILY 11/28/16 Sevelamer Carbonate [Renvela -] 800 mg NR TID 11/28/16 Acetaminophen W/ Codeine #3 [Tylenol # 3 -] 1 tab PO Q6H #20 tablet MDD 4 Family Disease History - Family Disease History Family Disease History: Diabetes: Father, Mother, Other: Father, Mother Review of Systems - Review of Systems Constitutional: denies: No Symptoms, Chills, Diaphoresis, Fever, Lethargy, Loss of Appetite, Malaise, Night Sweats, Unintentional Wgt. Loss, Weakness, Other Eyes: denies: No Symptoms, Blind Spots, Blurred Vision, Double Vision, Eye Pain , Floaters, Photophobia, Recent Change in Vision, Other HENT: denies: No Symptoms, Difficult Swallowing, Ear Discharge, Ear Pain, Epistaxis, Gingival Bleeding, Hearing Loss, Mouth Swelling, Nasal Congestion, Ocular Prosthesis, Throat Pain, Toothache, Ringing in Ears, Other Neck: denies: No Symptoms, Decreased ROM, Lumps, Pain on Movement, Stiffness, Swollen Glands, Tenderness, Other Cardiovascular: denies: No Symptoms, Chest Pain, Edema, Palpitations, Shortness of Breath, Other Respiratory: denies: No Symptoms, Cough, Exercise Intolerance, Hemoptysis, Orthopnea, PND, Snoring, SOB, SOB on Exertion, Wheezing, Other Gastrointestinal: denies: No Symptoms, Abdominal Pain, Bloating, Constipation, Diarrhea, Dysphagia, Indigestion, Melena, Nausea, Rectal Bleeding, Vomiting, Vomiting Blood, Other Genitourinary: denies: No Symptoms, Burning, Discharge, Dysuria, Flank Pain, Frequency, Hematuria, Incontinence, Lesions, Menses, Pain, Testicular Mass, Testicular Pain, Testicular Swelling, Urgency, Vaginal Bleeding, Other Breasts: denies: No Symptoms Reported, See HPI, Breast Implants, Discharge from Nipple, Lumps, Pain, Skin Changes, Other Musculoskeletal: reports: Decreased ROM, Extremity Pain, Joint Pain. denies: No Symptoms, Back Pain, Crepitus, Joint Swelling, Muscle Pain, Muscle Cramps, Muscle Weakness, Other Integumentary: denies: No Symptoms, Blister, Bruising, Change in Color, Eczema, Erythema, Incision, Lesions, Lump, Pallor, Pruritis, Rash, Wound, Other Neurological: reports: Dizziness, Syncope. denies: No Symptoms, Change in LOC, Change in Speech, Confusion, Headache, Incoordination, Numbness, Parasthesia, Pre-Existing Deficit, Seizure, Tremors, Unsteady Gait, Weakness, Other Endocrine: denies: No Symptoms, Excessive Sweating, Flushing, Increased Hunger, Increased Thirst, Intolerance to Cold, Intolerance to Heat, Unexplained Weight Gain, Unexplained Weight Loss, Other Hematology/Lymphatic: denies: No Symptoms, Easily Bruised, Excessive Bleeding, Swollen Glands, Other Psychiatric: denies: No Symptoms, Altered Sleep Pattern, Anxiety, Depression, Hallucinations, Panic, Paranoia, Suicidal, Other - Risk Factors Known Risk Factors: Yes: Diabetes Mellitus, Hypercholesterolemia, Hypertension, Prior MO /Emb Stroke Vital Signs: Vital Signs Temperature 98.1 F 04/25/17 06:48 Pulse Rate 90 04/25/17 06:48 Respiratory Rate 20 04/25/17 06:48 Blood Pressure 129/78 04/25/17 06:48 O2 Sat by Pulse Oximetry (%) 96 04/24/17 21:00 Constitutional: Yes: No Distress, Calm Eyes: Yes: Conjunctiva Clear, EOM Intact, PERRL HENT: Yes: Atraumatic, Normocephalic Neck: Yes: Supple, Trachea Midline Respiratory: Yes: Regular, CTA Bilaterally. No: Rales, Rhonchi, Wheezes Gastrointestinal: Yes: Normal Bowel Sounds, Soft. No: Distention, Tenderness Cardiovascular: Yes: Regular Rate and Rhythm. No: Bradycardia, Tachycardia, Pulse Irregular, Gallop, Rub, Varicosities JVD: No Carotid Bruit: No PMI: Non-Displaced Heart Sounds: Yes: S1, S2. No: Split S2, S3, S4, Clicks, Gallop, Rub, Bruit Murmur: No: Systolic Murmur, Diastolic Murmur Musculoskeletal: Yes: Back Pain, Joint Stiffness, Muscle Pain, Muscle Weakness Extremities: Yes: Amputation Edema: No Neurological: Yes: Alert, Oriented Psychiatric: Yes: Alert, Oriented - Other Data Labs, Other Data: CBC, BMP 04/23/17 10:15 04/23/17 10:15 ekg-NSR 96bpm, lae, ant/sept infarct age undetermined Echo: Report Reviewed Imaging - Results Chest X-ray: Report Reviewed, Image Reviewed EKG: Report Reviewed, Image Reviewed Other: Report Reviewed, Image Reviewed Assessment/Plan 51 y.o. with a PMH of MRSA, cervical osteomyelitis, hypertension, CHF (ECHO : diastolic dysfunction; normal LVEF), silent MO s/p CABG x 2 vessels (2010), cardiac stent (2013), ESRD (on Dialysis T,R,S), anemia and hyperlipidema as well as an extended ICU admission for pneumonia at an outside institution in December 2015 presents c/o of syncope, fall, RLE injury. states he was walking with his walker, felt dizzy, lost consciousness and fell on his RLE. Preop cardiac evaluation -as per ortho plan is for non-surgical treatment at this time Syncope-unclear etiology -ekg no sig changes from past ekgs -last echo 11/2016 showed normal LV systolic function and no sig valvular abnl -cardiac enzymes wnl -consider carotid doppler if not done recently -check orthostatic BP -outpatient event monitor Chronic diastolic CHF-currently euvolemic -HD as per schedule -cont current medical regimen CAD-stable -outpatient f/up
[2017-04-25] MEDS ORDERED: ACETAMINOPHEN 325 MG TABLET (FP) PO ONE (10:45)
[2017-04-25] MEDS ORDERED: oxyCODONE HCL 5 MG TABLET PO ONE (10:45)
[2017-04-25] MEDS ORDERED: PT OWN MED DRAWER 7, Y5N ONE (11:02)
[2017-04-25] MEDS: LISINOPRIL 5 MG TABLET (FP) PO SCH (11:05)
[2017-04-25] MEDS: MAGNESIUM OXIDE 400 MG TABLET (FP) PO SCH ×2 (11:07→21:12)
[2017-04-25] MEDS: BUDESONIDE/FORMETEROL FUMARATE 160/4.5 mcg INHALER IH SCH ×2 (11:08→21:13)
[2017-04-25] MEDS: CINACALCET HCL 30 MG TAB (FP) PO SCH (11:08)
[2017-04-25] MEDS: ALLOPURINOL 100 MG TABLET (FP) PO SCH (11:08)
--- NOTE | 2017-04-25 11:11 | CON.ID ---
Consult - History of Present Illness History of Present Illness: Asked to evaluate this 51 yr old male with PMH of CAD s/p CABG/stent, ESRD on HD , CHF, HTN, HLD, Lt foot infection/OM s/p transmetatarsal amputation (MRSA), and cervical OM who presents with severe Rt knee pain and decreased ROM, inability to walk after a mechanical fall. He states he normally uses a walker and his leg gave way, reportedly had brief episode of loss of consciousness. He reports a fall last month as well but did not have severe pain and was able to walk. He denies h/a, fever, chills, neck pain or any other specific complaints. He denies any Lt foot pain/drainage/erythema at the amputation site. Last saw Dr. Bhatti 2 wks ago. Currently he has a cast on Rt Leg. Remains alert, afebrile, without acute distress. - History Source History Provided By: Patient Limitations to Obtaining History: No Limitations - Past Medical History Cardio/Vascular: Yes: CAD, CHF (normal ejection fraction; poor LV compliance; no valvular abnormalities), HTN, Hyperlipdemia. No: AFIB, Aneurysm, Aortic Insufficiency, Aortic Stenosis, Deep Vein Thrombosis, [place], Mitral Insufficiency, Mitral Stenosis, Murmur, Pulmonary Hypertension, Other Pulmonary: Yes: Pneumonia Gastrointestinal: Yes: GERD, GI Bleed. No: Constipation, Crohn's Disease, Diverticulitis, Diverticulosis, Esophageal Varices, Gastritis, Hemorrhoids, Hiatal Hernia, Inflamatory Bowel Disease, Irritable Bowel Disease, Pancreatitis , Peptic Ulcer Disease, Ulcerative Colitis, Other Renal/: Yes: Renal Failure, Hemodialysis (ESRD on HD MWF via L arm AVF) Psych: Yes: Anxiety Musculoskeletal: Yes: Other (left metatarsal amputation). No: Bursitis, Chronic low back pain, Hemiparesis, Hemiplegia, Osteoarthritis, Paraplegia Rheumatology: Yes: Gout Endocrine: Yes: Diabetes Mellitus. No: [place]'s Disease, [place]'s Disease, Diabetes Insipidus, Hyperparathyroidism, Hyperthyroidism, Hypothyroidism, Osteopenia, SIADH, Other Additional Medical History: as above in HPI; L eye blindness; on renal transplant list at [facility]. bilateral detached retinas - Past Surgical History Past Surgical History: Yes: Amputation (Left Transmetatarsal), AV Fistula/Graft , CABG (05/2010), Stent (s/p cardiac cath with stent placement). No: None, AAA Repair, AICD, Appendectomy, Arthrosocopy, Bariatric Surgery, Breast Biopsy, Bypass, Carotid Endarterectomy, Cataract Removal, Cholecystectomy, Colectomy, Colonoscopy, Colostomy, Craniotomy, , Cystectomy, Hernia Repair, Hysterectomy, Ileal Conduit, Ileosotomy, Joint Replacement, Kidney Transplant, Laminectomy, Liver Transplant, Mastectomy, Nephrectomy, Oopherectomy, Orchiectomy, Permanent Pacemaker, Prostatectomy, Splenectomy, Thoracotomy, TURP , Tonsillectomy, Tubal Ligation, Upper Endoscopy, Valve Replacement, Vasectomy, Vein Stripping/Ligation - Alcohol/Substance Use Hx Alcohol Use: No History of Substance Use: reports: None - Smoking History Smoking history: Former smoker Have you smoked in the past 12 months: No Aproximately how many cigarettes per day: 2 If you are a former smoker, when did you quit?: 1989 - Social History Usual Living Arrangement: With Spouse ADL: Independent 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 History of Recent Travel: No Home Medications - Allergies Allergies/Adverse Reactions: Allergies Allergy/AdvReac Type Severity Reaction Status Date / Time No Known Drug Allergies Allergy Verified 03/25/17 14:17 - Home Medications Home Medications: Ambulatory Orders Allopurinol [Zyloprim -] 100 mg PO DAILY 11/28/16 Atorvastatin Ca [Lipitor] 80 mg PO HS 11/28/16 Cinacalcet HCl [Sensipar] 30 mg PO DAILY 11/28/16 Ferrous Sulfate 325 mg PO DAILY 11/28/16 Furosemide [Lasix] 80 mg PO DAILY 11/28/16 Hydralazine HCl 50 mg PO DAILY 11/28/16 Lisinopril 5 mg PO DAILY 11/28/16 Magnesium Oxide [Mag-Ox -] 400 mg PO TID 11/28/16 Nitroglycerin 0.4 mg SL DAILY PRN 11/28/16 Omeprazole 20 mg PO DAILY 11/28/16 Sevelamer Carbonate [Renvela -] 800 mg NR TID 11/28/16 Acetaminophen W/ Codeine #3 [Tylenol # 3 -] 1 tab PO Q6H #20 tablet MDD 4 Family Disease History - Family Disease History Family Disease History: Diabetes: Father, Mother, Other: Father, Mother Review of Systems - Review of Systems Constitutional: reports: No Symptoms HENT: reports: No Symptoms Neck: reports: No Symptoms Cardiovascular: reports: No Symptoms Respiratory: reports: No Symptoms Gastrointestinal: reports: No Symptoms Genitourinary: reports: No Symptoms Musculoskeletal: reports: Joint Pain (Rt knee, in cast) Integumentary: reports: No Symptoms Neurological: reports: No Symptoms Endocrine: reports: No Symptoms Hematology/Lymphatic: reports: No Symptoms Psychiatric: reports: No Symptoms Pain Intensity: 8 Physical Exam Vital Signs: Vital Signs Temperature 98.1 F 04/25/17 06:48 Pulse Rate 90 04/25/17 06:48 Respiratory Rate 20 04/25/17 06:48 Blood Pressure 129/78 04/25/17 06:48 O2 Sat by Pulse Oximetry (%) 96 04/24/17 21:00 Constitutional: Yes: No Distress, Calm HENT: Yes: WNL Neck: Yes: Supple Cardiovascular: Yes: Regular Rate and Rhythm Respiratory: Yes: Regular Gastrointestinal: Yes: Normal Bowel Sounds, Soft Renal/: Yes: WNL Musculoskeletal: Yes: Other (Rt leg cast) Extremities: Yes: Other (Lt TMA - dry, no erythema/tenderness/induration or drainage, medial callous) Wound/Incision: Yes: Clean/Dry Neurological: Yes: Alert, Oriented Psychiatric: Yes: Alert, Oriented Labs: CBC, BMP 04/23/17 10:15 04/23/17 10:15 Imaging - Results MRI: Report Reviewed (Rt knee suprapatellar joint effusion, tear of distal quadriceps tendon, transverse fracture of inferior patella, partial tear of distal ACL with reactive bone marrow) Problem List - Problems (1) ESRD (end stage renal disease) on dialysis Code(s): N18.6 - END STAGE RENAL DISEASE; Z99.2 - DEPENDENCE ON RENAL DIALYSIS (2) Fall Code(s): W19.XXXA - UNSPECIFIED FALL, INITIAL ENCOUNTER (3) Knee pain Code(s): M25.569 - PAIN IN UNSPECIFIED KNEE Qualifiers: Chronicity: unspecified Laterality: right Qualified Code(s): M25.561 - Pain in right knee (4) 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A (5) CAD (coronary artery disease) Code(s): I25.10 - ATHSCL HEART DISEASE OF [place] CORONARY ARTERY W/O ANG PCTRS (6) CHF (congestive heart failure) Code(s): I50.9 - HEART FAILURE, UNSPECIFIED (7) Chronic osteomyelitis of cervical spine Code(s): M46.22 - OSTEOMYELITIS OF [place], CERVICAL REGION (8) Diabetes mellitus Code(s): E11.9 - TYPE 2 DIABETES MELLITUS WITHOUT COMPLICATIONS Qualifiers: Diabetes mellitus type: type 2 Diabetes mellitus complication status: with kidney complications Diabetes mellitus complication detail: with chronic kidney disease (9) Diastolic CHF Code(s): I50.30 - UNSPECIFIED DIASTOLIC (CONGESTIVE) HEART FAILURE (10) ESRD on hemodialysis Code(s): N18.6 - END STAGE RENAL DISEASE; Z99.2 - DEPENDENCE ON RENAL DIALYSIS (11) Hyperlipemia Code(s): E78.5 - HYPERLIPIDEMIA, UNSPECIFIED (12) Hypertension Code(s): I10 - ESSENTIAL (PRIMARY) HYPERTENSION Qualifiers: Hypertension type: essential hypertension Qualified Code(s): I10 - Essential (primary) hypertension (13) Osteomyelitis of left foot Code(s): M86.9 - OSTEOMYELITIS, UNSPECIFIED (14) S/P CABG (coronary artery bypass graft) Code(s): Z95.1 - PRESENCE OF AORTOCORONARY BYPASS GRAFT (15) Stented coronary artery Code(s): Z95.5 - PRESENCE OF CORONARY ANGIOPLASTY IMPLANT AND GRAFT Assessment/Plan 51 y.o. male with PMH of CAD s/p CABG/stent, CHF, DM, ESRD on HD, HLD, anemia, PNA, Cervical Spine OM, Lt foot OM s/p transmetatarsal amputation who normally uses a walker presenting s/p mechanical fall with Rt knee severe pain, unable to ambulate. MRI with joint effusion, distal quadriceps tendon tear, transverse fracture of inferior patella. Pt currently wearing a cast. Lt transmetarsal amputation site dry without signs of infection. Pt afebrile, without chills or any other specific complaints. - suggest monitor off antibiotics at this time - follow up with Orthopedics - continue monitor vitals pt stable at this time
[2017-04-25] MEDS: BACITRACIN 15 GM TUBE TOPICAL OINTMENT TP SCH ×2 (12:00→21:12)
--- NOTE | 2017-04-25 12:32 | CONSULT ---
Consult - text type - Consultation Consultation Note: Neurology History of Present Illness: 51 year old male, with a significant past medical history of hypertension, hyperlipidemia, diabetes, anemia, GERD, silent UT(s/p 2 vessel CABG), CHF and ESRD(on dialysis T, Th S,), who presented to the emergency department s/p unwitnessed mechanical fall. The patient reports he was walking with a walker when his his left leg gave out, causing him to fall and hit his right knee on the floor and his head on the back of the door. Patient reports LOC for several seconds and headache, but denies any associated numbness and tingling, dizziness , lightheadedness, or changes in vision. He denies any chest pain, shortness of breath, diaphoresis, or palpitations. He denies any abdominal pain, nausea, vomiting, diarrhea, or constipation. He denies any dysuria, hematuria, frequency , or urgency. He was at baseline this morning. Ct head compelted and discussed. No focal deficits. Getting HD at bedside and no significant neuro issues at this time. - Past Medical History Cardiovascular: Yes: CAD, CHF (normal ejection fraction; poor LV compliance; no valvular abnormalities), HTN, Hyperlipdemia. No: AFIB, Aneurysm, Aortic Insufficiency, Aortic Stenosis, Deep Vein Thrombosis, UT, Mitral Insufficiency, Mitral Stenosis, Murmur, Pulmonary Hypertension, Other Gastrointestinal: Yes: GERD, GI Bleed. No: Constipation, Crohn's Disease, Diverticulitis, Diverticulosis, Esophageal Varices, Gastritis, Hemorrhoids, Hiatal Hernia, Inflamatory Bowel Disease, Irritable Bowel Disease, Pancreatitis , Peptic Ulcer Disease, Ulcerative Colitis, Other Renal/: Yes: Renal Failure, Hemodialysis (ESRD on HD MWF via L arm AVF) Heme/Onc: No: Anemia, B12 Deficiency, Bleeding Disorder, Cancer, Current Chemotherapy, Current Radiation Therapy, Hemochromatosis, Hypercoaguable State, Myeloproliferative Synd, Sickle Cell Disease, Sickle Cell Trait, Thrombocytopenia, Other Psych: Yes: Anxiety Musculoskeletal: Yes: Other (left metatarsal amputation). No: Bursitis, Chronic low back pain, Hemiparesis, Hemiplegia, Osteoarthritis, Paraplegia Rheumatology: Yes: Gout Endocrine: Yes: Diabetes Mellitus. No: Ballard's Disease, Eleva's Disease, Diabetes Insipidus, Hyperparathyroidism, Hyperthyroidism, Hypothyroidism, Osteopenia, SIADH, Other - Past Surgical History Past Surgical History: Yes: Amputation (Left Transmetatarsal), AV Fistula/Graft , CABG (05/2010), Stent (s/p cardiac cath with stent placement). No: None, AAA Repair, AICD, Appendectomy, Arthrosocopy, Bariatric Surgery, Breast Biopsy, Bypass, Carotid Endarterectomy, Cataract Removal, Cholecystectomy, Colectomy, Colonoscopy, Colostomy, Craniotomy, , Cystectomy, Hernia Repair, Hysterectomy, Ileal Conduit, Ileosotomy, Joint Replacement, Kidney Transplant, Laminectomy, Liver Transplant, Mastectomy, Nephrectomy, Oopherectomy, Orchiectomy, Permanent Pacemaker, Prostatectomy, Splenectomy, Thoracotomy, TURP , Tonsillectomy, Tubal Ligation, Upper Endoscopy, Valve Replacement, Vasectomy, Vein Stripping/Ligation - Smoking History Smoking history: Former smoker Have you smoked in the past 12 months: No Aproximately how many cigarettes per day: 2 If you are a former smoker, when did you quit?: 1989 - Alcohol/Substance Use Hx Alcohol Use: No History of Substance Use: reports: None - Social History ADL: Independent 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 No weakness. HEAD, EYES, EARS, NOSE AND THROAT: No change in vision. No ear pain or discharge. No sore throat. CARDIOVASCULAR: No chest pain or shortness of breath. RESPIRATORY: No cough, wheezing, or hemoptysis. GASTROINTESTINAL: No nausea, vomiting, diarrhea or constipation. GENITOURINARY: No dysuria, frequency, or change in urination. MUSCULOSKELETAL: Yes right knee pain. No muscle swelling or pain. No neck or back pain. SKIN: No rash NEUROLOGIC: Yes headache, loss of consciousness. No vertigo, lightheadedness or change in strength/sensation. ENDOCRINE: No increased thirst. No abnormal weight change. HEMATOLOGIC/LYMPHATIC: No anemia, easy bleeding, or history of blood clots. ALLERGIC/IMMUNOLOGIC: No hives or skin allergy. Home Medications - Allergies Allergies/Adverse Reactions: Allergies Allergy/AdvReac Type Severity Reaction Status Date / Time No Known Drug Allergies Allergy Verified 03/25/17 14:17 - Home Medications Home Medications: Ambulatory Orders Allopurinol [Zyloprim -] 100 mg PO DAILY 11/28/16 Atorvastatin Ca [Lipitor] 80 mg PO HS 11/28/16 Cinacalcet HCl [Sensipar] 30 mg PO DAILY 11/28/16 Ferrous Sulfate 325 mg PO DAILY 11/28/16 Furosemide [Lasix] 80 mg PO DAILY 11/28/16 Hydralazine HCl 50 mg PO DAILY 11/28/16 Lisinopril 5 mg PO DAILY 11/28/16 Magnesium Oxide [Mag-Ox -] 400 mg PO TID 11/28/16 Nitroglycerin 0.4 mg SL DAILY PRN 11/28/16 Omeprazole 20 mg PO DAILY 11/28/16 Sevelamer Carbonate [Renvela -] 800 mg NR TID 11/28/16 Acetaminophen W/ Codeine #3 [Tylenol # 3 -] 1 tab PO Q6H #20 tablet MDD 4 Family Disease History - Family Disease History Family Disease History: Diabetes: Father, Mother, Other: Father, Mother Physical Examination Vital Signs Temperature 98.0 F 04/25/17 10:00 Pulse Rate 92 H 04/25/17 10:00 Respiratory Rate 20 04/25/17 10:00 Blood Pressure 157/89 04/25/17 10:00 O2 Sat by Pulse Oximetry (%) 99 04/25/17 09:00 GENERAL: Awake, alert, and fully oriented, in no acute distress HEAD: No signs of trauma EYES: PERRLA, EOMI, sclera anicteric, conjunctiva clear ENT: Auricles normal inspection, hearing grossly normal, nares patent, oropharynx clear without exudates. Moist mucosa NECK: Normal ROM, supple, no lymphadenopathy, JVD, or masses LUNGS: Breath sounds equal, clear to auscultation bilaterally. No wheezes, and no crackles HEART: Regular rate and rhythm, normal S1 and S2, no murmurs, rubs or gallops ABDOMEN: Soft, nontender, normoactive bowel sounds. No guarding, no rebound. No masses EXTREMITIES: R knee with medial tenderness at the proximal end of the tibia. + Medial pain with Margareth's test. Remainder of extremities with normal range of motion, no edema. No clubbing or cyanosis. No cords, erythema, or tenderness. + Partial amputation L foot. NEUROLOGICAL: EOMI intact, sensory normal, strength equal, gait deferred SKIN: Warm, Dry, normal turgor, no rashes or lesions noted. CBCD WBC 4.3 K/mm3 (4.0-10.0) D 04/23/17 10:15 RBC 3.42 M/mm3 (4.00-5.60) L 04/23/17 10:15 Hgb 10.5 GM/dL (11.7-16.9) L 04/23/17 10:15 Hct 31.5 % (35.4-49) L 04/23/17 10:15 MCV 91.9 fl (80-96) 04/23/17 10:15 MCHC 33.4 g/dl (32.0-35.9) 04/23/17 10:15 RDW 16.8 % (11.9-15.9) H 04/23/17 10:15 Plt Count 286 K/MM3 (134-434) 04/23/17 10:15 MPV 8.1 fl (7.5-11.1) 04/23/17 10:15 CMP Sodium 134 mmol/L (136-145) L 04/23/17 10:15 Potassium 5.4 mmol/L (3.5-5.1) H 04/23/17 10:15 Chloride 98 mmol/L (98-107) 04/23/17 10:15 Carbon Dioxide 24 mmol/L (21-32) 04/23/17 10:15 Anion Gap 12 (8-16) 04/23/17 10:15 BUN 79 mg/dL (7-18) H 04/23/17 10:15 Creatinine 8.8 mg/dL (0.7-1.3) H* D 04/23/17 10:15 Creat Clearance w eGFR 6.40 (>60) 04/23/17 10:15 Calcium 8.0 mg/dL (8.5-10.1) L 04/23/17 10:15 Total Bilirubin 0.4 mg/dL (0.2-1.0) 04/23/17 10:15 AST 8 U/L (15-37) L 04/23/17 10:15 ALT 8 U/L (12-78) L 04/23/17 10:15 Alkaline Phosphatase 384 U/L (45-117) H 04/23/17 10:15 Total Protein 7.3 g/dl (6.4-8.2) 04/23/17 10:15 Albumin 3.2 g/dl (3.4-5.0) L 04/23/17 10:15 Plan 51 year old male, with a significant past medical history of hypertension, hyperlipidemia, diabetes, anemia, GERD, silent UT(s/p 2 vessel CABG), CHF and ESRD(on dialysis T, Th S,), who presented to the emergency department s/p unwitnessed mechanical fall. The patient reports he was walking with a walker when his his left leg gave out, causing him to fall and hit his right knee on the floor and his head on the back of the door. Patient reports LOC for several seconds and headache, but denies any associated numbness and tingling, dizziness , lightheadedness, or changes in vision. He denies any chest pain, shortness of breath, diaphoresis, or palpitations. He denies any abdominal pain, nausea, vomiting, diarrhea, or constipation. He denies any dysuria, hematuria, frequency , or urgency. He was at baseline this morning. Ct head compelted and discussed. No focal deficits. Getting HD at bedside and no significant neuro issues at this time. Increased hydration recommended. Maintain normotensive BP range, continue anti-HTN medications. HD per renal. Fall precautions.
[2017-04-25 12:39] LABS: HEMATOCRIT 33.3 % (35.4-49); HEMOGLOBIN 10.9 GM/dL (11.7-16.9); MCH 30.3 pg (25.7-33.7); MCHC 32.7 g/dl (32.0-35.9); MEAN CELL VOLUME 92.7 fl (80-96); PLATELET COUNT 295 K/MM3 (134-434); RBC 3.59 M/mm3 (4.00-5.60); WHITE BLOOD COUNT 5.1 K/mm3 (4.0-10.0)
[2017-04-25 12:58] LABS: ANION GAP 11 (8-16); BLOOD UREA NITROGEN 55 mg/dL (7-18); CALCIUM 7.8 mg/dL (8.5-10.1); CHLORIDE 94 mmol/L (98-107); CO2 28 mmol/L (21-32); GLUCOSE,RANDOM 186 mg/dL (74-106); POTASSIUM 4.2 mmol/L (3.5-5.1); SODIUM 133 mmol/L (136-145)
[2017-04-25 13:07] LABS: PHOSPHOROUS 7.4 mg/dL (2.5-4.9)
[2017-04-25 13:13] LABS: CREATININE 8.1 mg/dL (0.7-1.3)
--- NOTE | 2017-04-25 14:30 | PN ---
Progress Note (short form) - Note Progress Note: covering dr tian ESRD on HD (TTS), Hypertension, CAD, CHF who presented s/p mechanical fall at home with knee and head trauma with persistent knee pain and swelling. MRI-high grade tear of the Quad Tendon, Transverse fracture of the patella and possible ACL tear supportive care, pain control orthopedics follow up Renal Osteodystrophy continue Renvela and SEnsipar trend ca and phos levels Current Medications Albuterol Sulfate (Ventolin Hfa Inhaler -) 2 puff IH Q6H PRN PRN Reason: ASTHMA Allopurinol (Zyloprim -) [address] [facility] Last Admin: 04/25/17 11:08 Dose: 100 mg Atorvastatin Calcium (Lipitor -) [address] [facility] Last Admin: 04/24/17 21:20 Dose: 80 mg Bacitracin (Bacitracin -) [address] [facility] Last Admin: 04/24/17 21:21 Dose: 1 applic Budesonide/Formoterol Fumarate (Symbicort 160/4.5mcg -) [address] [facility] Last Admin: 04/25/17 11:08 Dose: 2 puff Cinacalcet (Sensipar -) [address] [facility] Last Admin: 04/25/17 11:08 Dose: 30 mg Docusate Sodium (Colace -) [address] [facility] Last Admin: 04/24/17 21:21 Dose: 300 mg Heparin Sodium (Porcine) (Heparin -) 5,[address] [facility] Last Admin: 04/25/17 06:11 Dose: 5,000 unit Hydralazine HCl (Apresoline -) [address] [facility] Last Admin: 04/25/17 06:11 Dose: 25 mg Insulin Aspart (Novolog Vial) [address] [facility] Last Admin: 04/25/17 11:14 Dose: 6 units Insulin Detemir (Levemir Vial) [address] [facility] Last Admin: 04/24/17 21:33 Dose: 15 units Lisinopril (Prinivil) [address] [facility] Last Admin: 04/25/17 11:05 Dose: 5 mg Magnesium Oxide (Mag-Ox -) [address] [facility] Last Admin: 04/25/17 11:07 Dose: 400 mg Ondansetron HCl (Zofran Injection) 4 mg IVPUSH Q8H PRN PRN Reason: NAUSEA AND/OR VOMITING Last Admin: 04/25/17 05:05 Dose: 4 mg Sevelamer Carbonate (Renvela -) [address] [facility] Last Admin: 04/25/17 11:56 Dose: Not Given Tramadol HCl (Ultram -) [address] [facility] Last Admin: 04/25/17 06:11 Dose: 50 mg Last Vital Signs Temp Pulse Resp BP Pulse Ox 98.8 F 85 18 121/60 99 04/25/17 11:55 04/25/17 14:00 04/25/17 14:00 04/25/17 14:00 04/25/17 09:00 Lungs clear Heart regl abd oft tonih CBC, BMP 04/25/17 12:00 04/25/17 12:00 seen while on dialysis treatment uneventful Plan- next hd on thursday
[2017-04-25] MEDS: INSULIN DETEMIR 100 UNITS/ML MDV SQ SCH (21:11)
[2017-04-25] MEDS: ATORVASTATIN CA 80 MG TABLET (FP) PO SCH (21:12)
[2017-04-25] MEDS: DOCUSATE SODIUM 100 MG CAPSULE (FP) PO SCH (21:12)
[2017-04-25] MEDS: oxyCODONE HCL 5 MG TABLET PO SCH (21:13)
[2017-04-25] MEDS: ACETAMINOPHEN 325 MG TABLET (FP) PO SCH (21:13)
[2017-04-26] MEDS: INSULIN (NOVOLOG) ASPART 100 UNITS/ML 10ML VIAL SQ SCH ×4 (06:27→17:50)
[2017-04-26] MEDS: hydrALAZINE HCL 25 MG TABLET (FP) PO SCH ×3 (06:27→21:34)
[2017-04-26] MEDS: ACETAMINOPHEN 325 MG TABLET (FP) PO SCH ×3 (06:27→21:37)
[2017-04-26] MEDS: HEPARIN NA (PORCINE) 5,000 UNITS/ML 1ML VIAL SQ SCH ×3 (06:27→21:34)
[2017-04-26] MEDS: oxyCODONE HCL 5 MG TABLET PO SCH ×3 (06:27→21:35)
[2017-04-26] MEDS: ONDANSETRON 4 MG/2 ML VIAL IVPUSH PRN (06:29)
[2017-04-26] MEDS ORDERED: PT OWN MED DRAWER 7, Y5N ONE ×2 (09:30→09:48)
[2017-04-26] MEDS: BACITRACIN 15 GM TUBE TOPICAL OINTMENT TP SCH ×2 (09:38→21:34)
[2017-04-26] MEDS: SEVELAMER CARBONATE 800 MG TAB (FP) PO SCH ×3 (09:38→17:49)
[2017-04-26] MEDS: MAGNESIUM OXIDE 400 MG TABLET (FP) PO SCH ×2 (09:39→21:34)
[2017-04-26] MEDS: LISINOPRIL 5 MG TABLET (FP) PO SCH (09:39)
[2017-04-26] MEDS: CINACALCET HCL 30 MG TAB (FP) PO SCH (09:40)
[2017-04-26] MEDS: BUDESONIDE/FORMETEROL FUMARATE 160/4.5 mcg INHALER IH SCH ×2 (09:40→21:35)
[2017-04-26] MEDS: ALLOPURINOL 100 MG TABLET (FP) PO SCH (09:41)
--- NOTE | 2017-04-26 11:04 | PN ---
Progress Note, Physician History of Present Illness: No new events. Pt states he feels relatively well. No new complaints. Remain afebrile. - Current Medication List Current Medications: Active Medications Acetaminophen (Tylenol -) 325 mg PO TID [facility] Last Admin: 04/26/17 06:27 Dose: 325 mg Albuterol Sulfate (Ventolin Hfa Inhaler -) 2 puff IH Q6H PRN PRN Reason: ASTHMA Allopurinol (Zyloprim -) 100 mg PO DAILY [facility] Last Admin: 04/26/17 09:41 Dose: 100 mg Atorvastatin Calcium (Lipitor -) 80 mg PO HS [facility] Last Admin: 04/25/17 21:12 Dose: 80 mg Bacitracin (Bacitracin -) 1 applic TP BID [facility] Last Admin: 04/26/17 09:38 Dose: 1 applic Budesonide/Formoterol Fumarate (Symbicort 160/4.5mcg -) 2 puff IH BID [facility] Last Admin: 04/26/17 09:40 Dose: 2 puff Cinacalcet (Sensipar -) 30 mg PO DAILY [facility] Last Admin: 04/26/17 09:40 Dose: 30 mg Docusate Sodium (Colace -) 300 mg PO HS [facility] Last Admin: 04/25/17 21:12 Dose: 300 mg Heparin Sodium (Porcine) (Heparin -) 5,000 unit SQ TID [facility] Last Admin: 04/26/17 06:27 Dose: 5,000 unit Hydralazine HCl (Apresoline -) 25 mg PO TID [facility] Last Admin: 04/26/17 06:27 Dose: 25 mg Insulin Aspart (Novolog Vial) 6 units SQ TIDAC [facility] Last Admin: 04/26/17 09:24 Dose: Not Given Insulin Detemir (Levemir Vial) 15 units SQ [facility] Last Admin: 04/25/17 21:11 Dose: 15 units Lisinopril (Prinivil) 5 mg PO DAILY [facility] Last Admin: 04/26/17 09:39 Dose: 5 mg Magnesium Oxide (Mag-Ox -) 400 mg PO BID [facility] Last Admin: 04/26/17 09:39 Dose: 400 mg Ondansetron HCl (Zofran Injection) 4 mg IVPUSH Q8H PRN PRN Reason: NAUSEA AND/OR VOMITING Last Admin: 04/26/17 06:29 Dose: 4 mg Oxycodone HCl (Roxicodone -) 5 mg PO TID [facility] Last Admin: 04/26/17 06:27 Dose: 5 mg Sevelamer Carbonate (Renvela -) 800 mg PO TIDCM [facility] Last Admin: 04/26/17 09:38 Dose: 800 mg - Objective Vital Signs: Vital Signs Temperature 99.2 F 04/26/17 06:11 Pulse Rate 100 H 04/26/17 06:11 Respiratory Rate 20 04/26/17 06:11 Blood Pressure 162/94 04/26/17 06:11 O2 Sat by Pulse Oximetry (%) 97 04/25/17 21:00 Constitutional: Yes: No Distress, Calm Cardiovascular: Yes: Regular Rate and Rhythm Respiratory: Yes: Regular Gastrointestinal: Yes: Normal Bowel Sounds, Soft Musculoskeletal: Yes: Other (Rt Leg cast, LT TMA site dry/without erythema/ tenderness) Labs: CBC, BMP 04/25/17 12:00 04/25/17 12:00 Problem List - Problems (1) ESRD (end stage renal disease) on dialysis Code(s): N18.6 - END STAGE RENAL DISEASE; Z99.2 - DEPENDENCE ON RENAL DIALYSIS (2) Fall Code(s): W19.XXXA - UNSPECIFIED FALL, INITIAL ENCOUNTER (3) Knee pain Code(s): M25.569 - PAIN IN UNSPECIFIED KNEE Qualifiers: Chronicity: unspecified Laterality: right Qualified Code(s): M25.561 - Pain in right knee (4) 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A (5) CAD (coronary artery disease) Code(s): I25.10 - ATHSCL HEART DISEASE OF [place] CORONARY ARTERY W/O ANG PCTRS (6) CHF (congestive heart failure) Code(s): I50.9 - HEART FAILURE, UNSPECIFIED (7) Chronic osteomyelitis of cervical spine Code(s): M46.22 - OSTEOMYELITIS OF [place], CERVICAL REGION (8) Diabetes mellitus Code(s): E11.9 - TYPE 2 DIABETES MELLITUS WITHOUT COMPLICATIONS Qualifiers: Diabetes mellitus type: type 2 Diabetes mellitus complication status: with kidney complications Diabetes mellitus complication detail: with chronic kidney disease (9) Diastolic CHF Code(s): I50.30 - UNSPECIFIED DIASTOLIC (CONGESTIVE) HEART FAILURE (10) ESRD on hemodialysis Code(s): N18.6 - END STAGE RENAL DISEASE; Z99.2 - DEPENDENCE ON RENAL DIALYSIS (11) Hyperlipemia Code(s): E78.5 - HYPERLIPIDEMIA, UNSPECIFIED (12) Hypertension Code(s): I10 - ESSENTIAL (PRIMARY) HYPERTENSION Qualifiers: Hypertension type: essential hypertension Qualified Code(s): I10 - Essential (primary) hypertension (13) Osteomyelitis of left foot Code(s): M86.9 - OSTEOMYELITIS, UNSPECIFIED (14) S/P CABG (coronary artery bypass graft) Code(s): Z95.1 - PRESENCE OF AORTOCORONARY BYPASS GRAFT (15) Stented coronary artery Code(s): Z95.5 - PRESENCE OF CORONARY ANGIOPLASTY IMPLANT AND GRAFT Assessment/Plan 51 y.o. male with PMH of CAD s/p CABG/stent, CHF, DM, ESRD on HD, HLD, anemia, PNA, Cervical Spine OM, Lt foot OM s/p transmetatarsal amputation who normally uses a walker presenting s/p mechanical fall with Rt knee severe pain, unable to ambulate. MRI with joint effusion, distal quadriceps tendon tear, transverse fracture of inferior patella. Pt currently wearing a cast. Lt transmetarsal amputation site dry without signs of infection. Pt afebrile, without chills or any other specific complaints. - remains stable off antibiotics - continue monitor
--- NOTE | 2017-04-26 12:16 | PN ---
Progress Note (short form) - Note Progress Note: Neurology History of Present Illness: 51 year old male, with a significant past medical history of hypertension, hyperlipidemia, diabetes, anemia, GERD, silent PA(s/p 2 vessel CABG), CHF and ESRD(on dialysis T, Th S,), who presented to the emergency department s/p unwitnessed mechanical fall. The patient reports he was walking with a walker when his his left leg gave out, causing him to fall and hit his right knee on the floor and his head on the back of the door. Patient reports LOC for several seconds and headache, but denied any associated numbness and tingling, dizziness , lightheadedness, or changes in vision. He denies any chest pain, shortness of breath, diaphoresis, or palpitations. He denies any abdominal pain, nausea, vomiting, diarrhea, or constipation. He denies any dysuria, hematuria, frequency , or urgency. He was at baseline again this morning. Ct head compelted and discussed. No focal deficits. No new neurologic events overnight. Resting comfortably. Spoke to nurse as well. Active Medications Acetaminophen (Tylenol -) 325 mg PO TID [facility] Last Admin: 04/26/17 06:27 Dose: 325 mg Albuterol Sulfate (Ventolin Hfa Inhaler -) 2 puff IH Q6H PRN PRN Reason: ASTHMA Allopurinol (Zyloprim -) 100 mg PO DAILY [facility] Last Admin: 04/26/17 09:41 Dose: 100 mg Atorvastatin Calcium (Lipitor -) 80 mg PO [facility] Last Admin: 04/25/17 21:12 Dose: 80 mg Bacitracin (Bacitracin -) 1 applic TP BID [facility] Last Admin: 04/26/17 09:38 Dose: 1 applic Budesonide/Formoterol Fumarate (Symbicort 160/4.5mcg -) 2 puff IH BID [facility] Last Admin: 04/26/17 09:40 Dose: 2 puff Cinacalcet (Sensipar -) 30 mg PO DAILY [facility] Last Admin: 04/26/17 09:40 Dose: 30 mg Docusate Sodium (Colace -) 300 mg PO HS [facility] Last Admin: 04/25/17 21:12 Dose: 300 mg Heparin Sodium (Porcine) (Heparin -) 5,000 unit SQ TID [facility] Last Admin: 04/26/17 06:27 Dose: 5,000 unit Hydralazine HCl (Apresoline -) 25 mg PO TID [facility] Last Admin: 04/26/17 06:27 Dose: 25 mg Insulin Aspart (Novolog Vial) 6 units SQ TIDAC [facility] Last Admin: 04/26/17 12:05 Dose: 6 units Insulin Detemir (Levemir Vial) 15 units SQ HS [facility] Last Admin: 04/25/17 21:11 Dose: 15 units Lisinopril (Prinivil) 5 mg PO DAILY [facility] Last Admin: 04/26/17 09:39 Dose: 5 mg Magnesium Oxide (Mag-Ox -) 400 mg PO BID [facility] Last Admin: 04/26/17 09:39 Dose: 400 mg Ondansetron HCl (Zofran Injection) 4 mg IVPUSH Q8H PRN PRN Reason: NAUSEA AND/OR VOMITING Last Admin: 04/26/17 06:29 Dose: 4 mg Oxycodone HCl (Roxicodone -) 5 mg PO TID [facility] Last Admin: 04/26/17 06:27 Dose: 5 mg Sevelamer Carbonate (Renvela -) 800 mg PO TIDCM [facility] Last Admin: 04/26/17 12:06 Dose: 800 mg Physical Examination Vital Signs Temperature 99.2 F 04/26/17 06:11 Pulse Rate 100 H 04/26/17 06:11 Respiratory Rate 20 04/26/17 06:11 Blood Pressure 162/94 04/26/17 06:11 O2 Sat by Pulse Oximetry (%) 97 04/25/17 21:00 GENERAL: Awake, alert, and fully oriented, in no acute distress HEAD: No signs of trauma EYES: PERRLA, EOMI, sclera anicteric, conjunctiva clear ENT: Auricles normal inspection, hearing grossly normal, nares patent, oropharynx clear without exudates. Moist mucosa NECK: Normal ROM, supple, no lymphadenopathy, JVD, or masses LUNGS: Breath sounds equal, clear to auscultation bilaterally. No wheezes, and no crackles HEART: Regular rate and rhythm, normal S1 and S2, no murmurs, rubs or gallops ABDOMEN: Soft, nontender, normoactive bowel sounds. No guarding, no rebound. No masses EXTREMITIES: R knee with medial tenderness at the proximal end of the tibia. + Medial pain with Magrareth's test. Remainder of extremities with normal range of motion, no edema. No clubbing or cyanosis. No cords, erythema, or tenderness. + Partial amputation L foot. NEUROLOGICAL: EOMI intact, sensory normal, strength equal, gait deferred SKIN: Warm, Dry, normal turgor, no rashes or lesions noted. CBCD WBC 5.1 K/mm3 (4.0-10.0) 04/25/17 12:00 RBC 3.59 M/mm3 (4.00-5.60) L 04/25/17 12:00 Hgb 10.9 GM/dL (11.7-16.9) L 04/25/17 12:00 Hct 33.3 % (35.4-49) L 04/25/17 12:00 MCV 92.7 fl (80-96) 04/25/17 12:00 MCHC 32.7 g/dl (32.0-35.9) 04/25/17 12:00 RDW 17.0 % (11.9-15.9) H 04/25/17 12:00 Plt Count 295 K/MM3 (134-434) 04/25/17 12:00 MPV 8.0 fl (7.5-11.1) 04/25/17 12:00 CMP Sodium 133 mmol/L (136-145) L 04/25/17 12:00 Potassium 4.2 mmol/L (3.5-5.1) D 04/25/17 12:00 Chloride 94 mmol/L (98-107) L 04/25/17 12:00 Carbon Dioxide 28 mmol/L (21-32) 04/25/17 12:00 Anion Gap 11 (8-16) 04/25/17 12:00 BUN 55 mg/dL (7-18) H D 04/25/17 12:00 Creatinine 8.1 mg/dL (0.7-1.3) H* 04/25/17 12:00 Creat Clearance w eGFR 6.40 (>60) 04/23/17 10:15 Calcium 7.8 mg/dL (8.5-10.1) L 04/25/17 12:00 Total Bilirubin 0.4 mg/dL (0.2-1.0) 04/23/17 10:15 AST 8 U/L (15-37) L 04/23/17 10:15 ALT 8 U/L (12-78) L 04/23/17 10:15 Alkaline Phosphatase 384 U/L (45-117) H 04/23/17 10:15 Total Protein 7.3 g/dl (6.4-8.2) 04/23/17 10:15 Albumin 3.2 g/dl (3.4-5.0) L 04/23/17 10:15 Plan 51 year old male, with a significant past medical history of hypertension, hyperlipidemia, diabetes, anemia, GERD, silent PA(s/p 2 vessel CABG), CHF and ESRD(on dialysis T, Th S,), who presented to the emergency department s/p unwitnessed mechanical fall. The patient reports he was walking with a walker when his his left leg gave out, causing him to fall and hit his right knee on the floor and his head on the back of the door. Patient reports LOC for several seconds and headache, but denies any associated numbness and tingling, dizziness , lightheadedness, or changes in vision. He denies any chest pain, shortness of breath, diaphoresis, or palpitations. He denies any abdominal pain, nausea, vomiting, diarrhea, or constipation. He denies any dysuria, hematuria, frequency , or urgency. He was at baseline this morning. Ct head compelted and discussed. No focal deficits. Getting HD at bedside and no significant neuro issues at this time. Increased hydration recommended. Maintain normotensive BP range, continue anti-HTN medications. HD per renal. Fall precautions. No futher rec'd at this time
--- NOTE | 2017-04-26 13:44 | PN ---
Progress Note, Physician History of Present Illness: seen and examined today in nad. no new complaints. no overnight events. - Current Medication List Current Medications: Active Medications Acetaminophen (Tylenol -) 325 mg PO TID [facility] Last Admin: 04/26/17 06:27 Dose: 325 mg Albuterol Sulfate (Ventolin Hfa Inhaler -) 2 puff IH Q6H PRN PRN Reason: ASTHMA Allopurinol (Zyloprim -) 100 mg PO DAILY [facility] Last Admin: 04/26/17 09:41 Dose: 100 mg Atorvastatin Calcium (Lipitor -) 80 mg PO HS [facility] Last Admin: 04/25/17 21:12 Dose: 80 mg Bacitracin (Bacitracin -) 1 applic TP BID [facility] Last Admin: 04/26/17 09:38 Dose: 1 applic Budesonide/Formoterol Fumarate (Symbicort 160/4.5mcg -) 2 puff IH BID [facility] Last Admin: 04/26/17 09:40 Dose: 2 puff Cinacalcet (Sensipar -) 30 mg PO DAILY [facility] Last Admin: 04/26/17 09:40 Dose: 30 mg Docusate Sodium (Colace -) 300 mg PO HS [facility] Last Admin: 04/25/17 21:12 Dose: 300 mg Heparin Sodium (Porcine) (Heparin -) 5,000 unit SQ TID [facility] Last Admin: 04/26/17 06:27 Dose: 5,000 unit Hydralazine HCl (Apresoline -) 25 mg PO TID [facility] Last Admin: 04/26/17 06:27 Dose: 25 mg Insulin Aspart (Novolog Vial) 6 units SQ TIDAC [facility] Last Admin: 04/26/17 12:05 Dose: 6 units Insulin Detemir (Levemir Vial) 15 units SQ HS [facility] Last Admin: 04/25/17 21:11 Dose: 15 units Lisinopril (Prinivil) 5 mg PO DAILY [facility] Last Admin: 04/26/17 09:39 Dose: 5 mg Magnesium Oxide (Mag-Ox -) 400 mg PO BID [facility] Last Admin: 04/26/17 09:39 Dose: 400 mg Ondansetron HCl (Zofran Injection) 4 mg IVPUSH Q8H PRN PRN Reason: NAUSEA AND/OR VOMITING Last Admin: 04/26/17 06:29 Dose: 4 mg Oxycodone HCl (Roxicodone -) 5 mg PO TID [facility] Last Admin: 04/26/17 06:27 Dose: 5 mg Sevelamer Carbonate (Renvela -) 800 mg PO TIDCM [facility] Last Admin: 04/26/17 12:06 Dose: 800 mg - Objective Vital Signs: Vital Signs Temperature 99.2 F 04/26/17 06:11 Pulse Rate 100 H 04/26/17 06:11 Respiratory Rate 20 04/26/17 06:11 Blood Pressure 162/94 04/26/17 06:11 O2 Sat by Pulse Oximetry (%) 97 04/25/17 21:00 Constitutional: Yes: No Distress, Calm Eyes: Yes: Conjunctiva Clear, EOM Intact, PERRL HENT: Yes: Atraumatic, Normocephalic Neck: Yes: Supple, Trachea Midline Cardiovascular: Yes: Regular Rate and Rhythm, S1, S2. No: Bradycardia, Tachycardia, Pulse Irregular, Bruit, JVD, Gallop, Murmur, Rub, S3, S4, Varicosities Respiratory: Yes: Regular, CTA Bilaterally. No: Rales, Rhonchi, Wheezes Gastrointestinal: Yes: Normal Bowel Sounds, Soft. No: Distention, Tenderness Extremities: Yes: Amputation, Other (RLE cast, LLE amputation) Edema: No Peripheral Pulses WNL: No Neurological: Yes: Alert, Oriented Psychiatric: Yes: Alert, Oriented Labs: CBC, BMP 04/25/17 12:00 04/25/17 12:00 - ....Imaging Chest X-ray: Report Reviewed, Image Reviewed EKG: Report Reviewed, Image Reviewed Other: Report Reviewed, Image Reviewed (tele-nsr, sinus tach, PVCs) Assessment/Plan 51 y.o. with a PMH of MRSA, cervical osteomyelitis, hypertension, CHF (ECHO : diastolic dysfunction; normal LVEF), silent [place] s/p CABG x 2 vessels (2010), cardiac stent (2013), ESRD (on Dialysis T,R,S), anemia and hyperlipidema as well as an extended ICU admission for pneumonia at an outside institution in December 2015 presents c/o of syncope, fall, RLE injury. states he was walking with his walker, felt dizzy, lost consciousness and fell on his RLE. Preop cardiac evaluation -as per ortho plan is for non-surgical treatment at this time -physical therapy evaluation and evaluation for short term rehab Syncope-unclear etiology -ekg no sig changes from past ekgs -last echo 11/2016 showed normal LV systolic function and no sig valvular abnl -cardiac enzymes wnl -consider carotid doppler if not done recently -check orthostatic BP -outpatient event monitor Chronic diastolic CHF-currently euvolemic -HD as per schedule -cont current medical regimen CAD-stable -outpatient f/up
--- NOTE | 2017-04-26 19:06 | PN ---
Progress Note, Physician - Current Medication List Current Medications: Active Medications Acetaminophen (Tylenol -) 325 mg PO TID [facility] Last Admin: 04/26/17 14:59 Dose: 325 mg Albuterol Sulfate (Ventolin Hfa Inhaler -) 2 puff IH Q6H PRN PRN Reason: ASTHMA Allopurinol (Zyloprim -) 100 mg PO DAILY [facility] Last Admin: 04/26/17 09:41 Dose: 100 mg Atorvastatin Calcium (Lipitor -) 80 mg PO [facility] Last Admin: 04/25/17 21:12 Dose: 80 mg Bacitracin (Bacitracin -) 1 applic TP BID [facility] Last Admin: 04/26/17 09:38 Dose: 1 applic Budesonide/Formoterol Fumarate (Symbicort 160/4.5mcg -) 2 puff IH BID [facility] Last Admin: 04/26/17 09:40 Dose: 2 puff Cinacalcet (Sensipar -) 30 mg PO DAILY [facility] Last Admin: 04/26/17 09:40 Dose: 30 mg Docusate Sodium (Colace -) 300 mg PO [facility] Last Admin: 04/25/17 21:12 Dose: 300 mg Heparin Sodium (Porcine) (Heparin -) 5,000 unit SQ TID [facility] Last Admin: 04/26/17 15:00 Dose: 5,000 unit Hydralazine HCl (Apresoline -) 25 mg PO TID [facility] Last Admin: 04/26/17 15:00 Dose: 25 mg Insulin Aspart (Novolog Vial) 6 units SQ TIDAC [facility] Last Admin: 04/26/17 17:50 Dose: 6 units Insulin Detemir (Levemir Vial) 15 units SQ [facility] Last Admin: 04/25/17 21:11 Dose: 15 units Lisinopril (Prinivil) 5 mg PO DAILY [facility] Last Admin: 04/26/17 09:39 Dose: 5 mg Magnesium Oxide (Mag-Ox -) 400 mg PO BID [facility] Last Admin: 04/26/17 09:39 Dose: 400 mg Ondansetron HCl (Zofran Injection) 4 mg IVPUSH Q8H PRN PRN Reason: NAUSEA AND/OR VOMITING Last Admin: 04/26/17 06:29 Dose: 4 mg Oxycodone HCl (Roxicodone -) 5 mg PO TID [facility] Last Admin: 04/26/17 14:57 Dose: 5 mg Sevelamer Carbonate (Renvela -) 800 mg PO [facility] Last Admin: 04/26/17 17:49 Dose: 800 mg - Objective Vital Signs: Vital Signs Temperature 100.1 F H 04/26/17 14:44 Pulse Rate 97 H 04/26/17 14:44 Respiratory Rate 18 04/26/17 14:44 Blood Pressure 140/76 04/26/17 14:44 O2 Sat by Pulse Oximetry (%) 94 L 04/26/17 09:00 Labs: CBC, BMP 04/25/17 12:00 04/25/17 12:00 Problem List - Problems (1) Syncope Code(s): R55 - SYNCOPE AND COLLAPSE Qualifiers: Syncope type: unspecified Qualified Code(s): R55 - Syncope and collapse (2) Fall Code(s): W19.XXXA - UNSPECIFIED FALL, INITIAL ENCOUNTER (3) ESRD (end stage renal disease) on dialysis Code(s): N18.6 - END STAGE RENAL DISEASE; Z99.2 - DEPENDENCE ON RENAL DIALYSIS (4) Chronic osteomyelitis of cervical spine Code(s): M46.22 - OSTEOMYELITIS OF [place], CERVICAL REGION (5) Anemia in ESRD (end-stage renal disease) Code(s): N18.6 - END STAGE RENAL DISEASE; D63.1 - ANEMIA IN CHRONIC KIDNEY DISEASE (6) COPD exacerbation Code(s): J44.1 - CHRONIC OBSTRUCTIVE PULMONARY DISEASE W (ACUTE) EXACERBATION
--- NOTE | 2017-04-26 21:23 | PN ---
Progress Note (short form) - Note Progress Note: covering dr tian ESRD on HD (TTS), Hypertension, CAD, CHF who presented s/p mechanical fall at home with knee and head trauma with persistent knee pain and swelling. MRI-high grade tear of the Quad Tendon, Transverse fracture of the patella and possible ACL tear supportive care, pain control orthopedics follow up Renal Osteodystrophy continue Renvela and SEnsipar trend ca and phos levels Current Medications Acetaminophen (Tylenol -) 325 mg PO TID [facility] Last Admin: 04/26/17 14:59 Dose: 325 mg Albuterol Sulfate (Ventolin Hfa Inhaler -) 2 puff IH Q6H PRN PRN Reason: ASTHMA Allopurinol (Zyloprim -) 100 mg PO DAILY [facility] Last Admin: 04/26/17 09:41 Dose: 100 mg Atorvastatin Calcium (Lipitor -) 80 mg PO HS [facility] Last Admin: 04/25/17 21:12 Dose: 80 mg Bacitracin (Bacitracin -) 1 applic TP BID [facility] Last Admin: 04/26/17 09:38 Dose: 1 applic Budesonide/Formoterol Fumarate (Symbicort 160/4.5mcg -) 2 puff IH BID [facility] Last Admin: 04/26/17 09:40 Dose: 2 puff Cinacalcet (Sensipar -) 30 mg PO DAILY [facility] Last Admin: 04/26/17 09:40 Dose: 30 mg Docusate Sodium (Colace -) 300 mg PO HS [facility] Last Admin: 04/25/17 21:12 Dose: 300 mg Heparin Sodium (Porcine) (Heparin -) 5,000 unit SQ TID [facility] Last Admin: 04/26/17 15:00 Dose: 5,000 unit Hydralazine HCl (Apresoline -) 25 mg PO TID [facility] Last Admin: 04/26/17 15:00 Dose: 25 mg Insulin Aspart (Novolog Vial) 6 units SQ TIDAC [facility] Last Admin: 04/26/17 17:50 Dose: 6 units Insulin Detemir (Levemir Vial) 15 units SQ HS [facility] Last Admin: 04/25/17 21:11 Dose: 15 units Lisinopril (Prinivil) 5 mg PO DAILY [facility] Last Admin: 04/26/17 09:39 Dose: 5 mg Magnesium Oxide (Mag-Ox -) 400 mg PO BID [facility] Last Admin: 04/26/17 09:39 Dose: 400 mg Ondansetron HCl (Zofran Injection) 4 mg IVPUSH Q8H PRN PRN Reason: NAUSEA AND/OR VOMITING Last Admin: 04/26/17 06:29 Dose: 4 mg Oxycodone HCl (Roxicodone -) 5 mg PO TID [facility] Last Admin: 04/26/17 14:57 Dose: 5 mg Sevelamer Carbonate (Renvela -) 800 mg PO TIDCM [facility] Last Admin: 04/26/17 17:49 Dose: 800 mg Last Vital Signs Temp Pulse Resp BP Pulse Ox 100.1 F H 97 H 18 140/76 94 L 04/26/17 14:44 04/26/17 14:44 04/26/17 14:44 04/26/17 14:44 04/26/17 09:00 Lungs clear Heart regl abd soft CBC, BMP 04/25/17 12:00 04/25/17 12:00 seen while on dialysis treatment uneventful Plan- next hd on thursday
[2017-04-26] MEDS: DOCUSATE SODIUM 100 MG CAPSULE (FP) PO SCH (21:34)
[2017-04-26] MEDS: INSULIN DETEMIR 100 UNITS/ML MDV SQ SCH (21:34)
[2017-04-26] MEDS: ATORVASTATIN CA 80 MG TABLET (FP) PO SCH (21:34)
[2017-04-26] MEDS ORDERED: AZITHROMYCIN 1% OPHTH SOLN 1 BOTTLE OS SCH (22:30)
[2017-04-27] MEDS: OFLOXACIN 0.3% OPHTHALMIC SOLUTION 5 ML BOTTLE OS SCH ×4 (03:25→22:40)
[2017-04-27] MEDS: HEPARIN NA (PORCINE) 5,000 UNITS/ML 1ML VIAL SQ SCH ×3 (05:42→22:38)
[2017-04-27] MEDS: hydrALAZINE HCL 25 MG TABLET (FP) PO SCH ×3 (05:42→22:38)
[2017-04-27] MEDS: oxyCODONE HCL 5 MG TABLET PO SCH ×3 (05:43→22:37)
[2017-04-27] MEDS: ACETAMINOPHEN 325 MG TABLET (FP) PO SCH ×3 (05:43→22:38)
[2017-04-27] MEDS: INSULIN (NOVOLOG) ASPART 100 UNITS/ML 10ML VIAL SQ SCH ×3 (06:17→17:08)
[2017-04-27 06:35] LABS: BASO % 0.9 % (0-2.0); EOS % 7.7 % (0-4.5); HEMATOCRIT 32.2 % (35.4-49); HEMOGLOBIN 10.6 GM/dL (11.7-16.9); LYMPH % 19.4 % (8-40); MCH 30.8 pg (25.7-33.7); MEAN CELL VOLUME 93.4 fl (80-96); MEAN PLT VOLUME 8.3 fl (7.5-11.1); MONO % 9.3 % (3.8-10.2); NEUT % 62.7 % (42.8-82.8); PLATELET COUNT 290 K/MM3 (134-434); RBC 3.45 M/mm3 (4.00-5.60); RDW 16.6 % (11.9-15.9)
[2017-04-27 07:18] LABS: ANION GAP 9 (8-16); BLOOD UREA NITROGEN 54 mg/dL (7-18); CALCIUM 7.9 mg/dL (8.5-10.1); CHLORIDE 97 mmol/L (98-107); CO2 29 mmol/L (21-32); GLUCOSE,RANDOM 170 mg/dL (74-106); POTASSIUM 4.5 mmol/L (3.5-5.1); SODIUM 135 mmol/L (136-145)
[2017-04-27 07:32] LABS: CREATININE 8.7 mg/dL (0.7-1.3)
[2017-04-27] MEDS: SEVELAMER CARBONATE 800 MG TAB (FP) PO SCH ×3 (08:19→17:08)
--- NOTE | 2017-04-27 09:14 | PN ---
Progress Note (short form) - Note Progress Note: Neurology History of Present Illness: 51 year old male, with a significant past medical history of hypertension, hyperlipidemia, diabetes, anemia, GERD, silent [place](s/p 2 vessel CABG), CHF and ESRD(on dialysis T, Th S,), who presented to the emergency department s/p unwitnessed mechanical fall. The patient reports he was walking with a walker when his his left leg gave out, causing him to fall and hit his right knee on the floor and his head on the back of the door. Patient reports LOC for several seconds and headache, but denied any associated numbness and tingling, dizziness , lightheadedness, or changes in vision. He denies any chest pain, shortness of breath, diaphoresis, or palpitations. He denies any abdominal pain, nausea, vomiting, diarrhea, or constipation. He denies any dysuria, hematuria, frequency , or urgency. He was at baseline again this morning. Ct head compelted and discussed. No focal deficits. No new neurologic events over the weekend. Resting comfortably. Active Medications Acetaminophen (Tylenol -) 325 mg PO TID [facility] Last Admin: 04/27/17 05:43 Dose: 325 mg Albuterol Sulfate (Ventolin Hfa Inhaler -) 2 puff IH Q6H PRN PRN Reason: ASTHMA Allopurinol (Zyloprim -) 100 mg PO DAILY [facility] Last Admin: 04/26/17 09:41 Dose: 100 mg Atorvastatin Calcium (Lipitor -) 80 mg PO HS [facility] Last Admin: 04/26/17 21:34 Dose: 80 mg Bacitracin (Bacitracin -) 1 applic TP BID [facility] Last Admin: 04/26/17 21:34 Dose: Not Given Budesonide/Formoterol Fumarate (Symbicort 160/4.5mcg -) 2 puff IH BID [facility] Last Admin: 04/26/17 21:35 Dose: 2 puff Cinacalcet (Sensipar -) 30 mg PO DAILY [facility] Last Admin: 04/26/17 09:40 Dose: 30 mg Docusate Sodium (Colace -) 300 mg PO HS [facility] Last Admin: 04/26/17 21:34 Dose: Not Given Heparin Sodium (Porcine) (Heparin -) 5,000 unit SQ TID [facility] Last Admin: 04/27/17 05:42 Dose: 5,000 unit Hydralazine HCl (Apresoline -) 25 mg PO TID [facility] Last Admin: 04/27/17 05:42 Dose: 25 mg Insulin Aspart (Novolog Vial) 6 units SQ TIDAC [facility] Last Admin: 04/27/17 06:17 Dose: Not Given Insulin Detemir (Levemir Vial) 15 units SQ HS [facility] Last Admin: 04/26/17 21:34 Dose: 15 units Lisinopril (Prinivil) 5 mg PO DAILY [facility] Last Admin: 04/26/17 09:39 Dose: 5 mg Magnesium Oxide (Mag-Ox -) 400 mg PO BID [facility] Last Admin: 04/26/17 21:34 Dose: 400 mg Ofloxacin (Ocuflox 0.3% Eye Drops -) 1 drop OS TID [facility] Stop: 05/01/17 14:01 Last Admin: 04/27/17 05:42 Dose: 1 drop Ondansetron HCl (Zofran Injection) 4 mg IVPUSH Q8H PRN PRN Reason: NAUSEA AND/OR VOMITING Last Admin: 04/26/17 06:29 Dose: 4 mg Oxycodone HCl (Roxicodone -) 5 mg PO TID [facility] Last Admin: 04/27/17 05:43 Dose: 5 mg Sevelamer Carbonate (Renvela -) 800 mg PO TIDCM [facility] Last Admin: 04/26/17 17:49 Dose: 800 mg Physical Examination Vital Signs Temperature 98.2 F 04/27/17 06:00 Pulse Rate 88 04/27/17 06:00 Respiratory Rate 20 04/27/17 06:00 Blood Pressure 155/80 04/27/17 06:00 O2 Sat by Pulse Oximetry (%) 94 L 04/26/17 21:00 GENERAL: Awake, alert, and fully oriented, in no acute distress HEAD: No signs of trauma EYES: PERRLA, EOMI, sclera anicteric, conjunctiva clear ENT: Auricles normal inspection, hearing grossly normal, nares patent, oropharynx clear without exudates. Moist mucosa NECK: Normal ROM, supple, no lymphadenopathy, JVD, or masses LUNGS: Breath sounds equal, clear to auscultation bilaterally. No wheezes, and no crackles HEART: Regular rate and rhythm, normal S1 and S2, no murmurs, rubs or gallops ABDOMEN: Soft, nontender, normoactive bowel sounds. No guarding, no rebound. No masses EXTREMITIES: R knee with medial tenderness at the proximal end of the tibia. + Medial pain with Margareth's test. Remainder of extremities with normal range of motion, no edema. No clubbing or cyanosis. No cords, erythema, or tenderness. + Partial amputation L foot. NEUROLOGICAL: EOMI intact, sensory normal, strength equal, gait deferred SKIN: Warm, Dry, normal turgor, no rashes or lesions noted. CBCD WBC 5.0 K/mm3 (4.0-10.0) 04/27/17 06:25 RBC 3.45 M/mm3 (4.00-5.60) L 04/27/17 06:25 Hgb 10.6 GM/dL (11.7-16.9) L 04/27/17 06:25 Hct 32.2 % (35.4-49) L 04/27/17 06:25 MCV 93.4 fl (80-96) 04/27/17 06:25 MCHC 33.0 g/dl (32.0-35.9) 04/27/17 06:25 RDW 16.6 % (11.9-15.9) H 04/27/17 06:25 Plt Count 290 K/MM3 (134-434) 04/27/17 06:25 MPV 8.3 fl (7.5-11.1) 04/27/17 06:25 CMP Sodium 135 mmol/L (136-145) L 04/27/17 06:25 Potassium 4.5 mmol/L (3.5-5.1) 04/27/17 06:25 Chloride 97 mmol/L (98-107) L 04/27/17 06:25 Carbon Dioxide 29 mmol/L (21-32) 04/27/17 06:25 Anion Gap 9 (8-16) 04/27/17 06:25 BUN 54 mg/dL (7-18) H 04/27/17 06:25 Creatinine 8.7 mg/dL (0.7-1.3) H* 04/27/17 06:25 Creat Clearance w eGFR 6.40 (>60) 04/23/17 10:15 Calcium 7.9 mg/dL (8.5-10.1) L 04/27/17 06:25 Total Bilirubin 0.4 mg/dL (0.2-1.0) 04/23/17 10:15 AST 8 U/L (15-37) L 04/23/17 10:15 ALT 8 U/L (12-78) L 04/23/17 10:15 Alkaline Phosphatase 384 U/L (45-117) H 04/23/17 10:15 Total Protein 7.3 g/dl (6.4-8.2) 04/23/17 10:15 Albumin 3.2 g/dl (3.4-5.0) L 04/23/17 10:15 Plan 51 year old male, with a significant past medical history of hypertension, hyperlipidemia, diabetes, anemia, GERD, silent MD(s/p 2 vessel CABG), CHF and ESRD(on dialysis T, Th S,), who presented to the emergency department s/p unwitnessed mechanical fall. The patient reported he was walking with a walker when his his left leg gave out, causing him to fall and hit his right knee on the floor and his head on the back of the door. Ct head compelted and discussed. No focal deficits. Maintain normotensive BP range, continue anti-HTN medications. HD per renal. Fall precautions. Neurologically stable at this time No futher rec'd at this time
[2017-04-27] MEDS: MAGNESIUM OXIDE 400 MG TABLET (FP) PO SCH ×2 (09:19→22:39)
[2017-04-27] MEDS: BACITRACIN 15 GM TUBE TOPICAL OINTMENT TP SCH ×2 (09:19→22:44)
[2017-04-27] MEDS: LISINOPRIL 5 MG TABLET (FP) PO SCH (09:19)
[2017-04-27] MEDS: BUDESONIDE/FORMETEROL FUMARATE 160/4.5 mcg INHALER IH SCH ×2 (09:20→22:39)
[2017-04-27] MEDS: CINACALCET HCL 30 MG TAB (FP) PO SCH (09:20)
[2017-04-27] MEDS: ALLOPURINOL 100 MG TABLET (FP) PO SCH (09:21)
--- NOTE | 2017-04-27 12:27 | PN ---
Progress Note, Physician - Current Medication List Current Medications: Active Medications Acetaminophen (Tylenol -) 325 mg PO TID [facility] Last Admin: 04/27/17 05:43 Dose: 325 mg Albuterol Sulfate (Ventolin Hfa Inhaler -) 2 puff IH Q6H PRN PRN Reason: ASTHMA Allopurinol (Zyloprim -) 100 mg PO DAILY [facility] Last Admin: 04/27/17 09:21 Dose: 100 mg Atorvastatin Calcium (Lipitor -) 80 mg PO [facility] Last Admin: 04/26/17 21:34 Dose: 80 mg Bacitracin (Bacitracin -) 1 applic TP BID [facility] Last Admin: 04/27/17 09:19 Dose: 1 applic Budesonide/Formoterol Fumarate (Symbicort 160/4.5mcg -) 2 puff IH BID [facility] Last Admin: 04/27/17 09:20 Dose: 2 puff Cinacalcet (Sensipar -) 30 mg PO DAILY [facility] Last Admin: 04/27/17 09:20 Dose: 30 mg Docusate Sodium (Colace -) 300 mg PO [facility] Last Admin: 04/26/17 21:34 Dose: Not Given Heparin Sodium (Porcine) (Heparin -) 5,000 unit SQ TID [facility] Last Admin: 04/27/17 05:42 Dose: 5,000 unit Hydralazine HCl (Apresoline -) 25 mg PO TID [facility] Last Admin: 04/27/17 05:42 Dose: 25 mg Insulin Aspart (Novolog Vial) 6 units SQ TIDAC [facility] Last Admin: 04/27/17 11:22 Dose: 6 units Insulin Detemir (Levemir Vial) 15 units SQ [facility] Last Admin: 04/26/17 21:34 Dose: 15 units Lisinopril (Prinivil) 5 mg PO DAILY [facility] Last Admin: 04/27/17 09:19 Dose: 5 mg Magnesium Oxide (Mag-Ox -) 400 mg PO BID [facility] Last Admin: 04/27/17 09:19 Dose: 400 mg Ofloxacin (Ocuflox 0.3% Eye Drops -) 1 drop OS TID [facility] Stop: 05/01/17 14:01 Last Admin: 04/27/17 05:42 Dose: 1 drop Ondansetron HCl (Zofran Injection) 4 mg IVPUSH Q8H PRN PRN Reason: NAUSEA AND/OR VOMITING Last Admin: 04/26/17 06:29 Dose: 4 mg Oxycodone HCl (Roxicodone -) 5 mg PO TID [facility] Last Admin: 04/27/17 05:43 Dose: 5 mg Sevelamer Carbonate (Renvela -) 800 mg PO TIDCM [facility] Last Admin: 04/27/17 11:47 Dose: 800 mg - Objective Vital Signs: Vital Signs Temperature 98.3 F 04/27/17 10:00 Pulse Rate 94 H 04/27/17 10:00 Respiratory Rate 04/27/17 10:00 Blood Pressure 150/84 04/27/17 10:00 O2 Sat by Pulse Oximetry (%) 94 L 04/27/17 10:00 Eyes: Yes: WNL, Conjunctiva Clear, EOM Intact HENT: Yes: WNL, Atraumatic, Normocephalic Neck: Yes: WNL, Supple, Trachea Midline Cardiovascular: Yes: WNL, Regular Rate and Rhythm Respiratory: Yes: WNL, Regular, CTA Bilaterally Gastrointestinal: Yes: WNL, Normal Bowel Sounds Genitourinary: Yes: WNL Musculoskeletal: Yes: WNL Extremities: Yes: Amputation, Other (cast LLext) Edema: No Integumentary: Yes: WNL Neurological: Yes: WNL, Alert, Oriented ...Motor Strength: WNL Psychiatric: Yes: WNL Labs: CBC, BMP 04/27/17 06:25 04/27/17 06:25 Assessment/Plan 51 y.o. with a PMH of MRSA, cervical osteomyelitis, hypertension, CHF (ECHO : diastolic dysfunction; normal LVEF), silent [place] s/p CABG x 2 vessels (2010), cardiac stent (2013), ESRD (on Dialysis T,R,S), anemia and hyperlipidema as well as an extended ICU admission for pneumonia at an outside institution in December 2015 presents c/o of syncope, fall, RLE injury. states he was walking with his walker, felt dizzy, lost consciousness and fell on his RLE. Preop cardiac evaluation -as per ortho plan is for non-surgical treatment at this time -physical therapy evaluation and evaluation for short term rehab Syncope-unclear etiology -ekg no sig changes from past ekgs -last echo 11/2016 showed normal LV systolic function and no sig valvular abnl -cardiac enzymes wnl -consider carotid doppler if not done recently -check orthostatic BP -outpatient event monitor Chronic diastolic CHF-currently euvolemic -HD as per schedule -cont current medical regimen CAD-stable -outpatient f/up
--- NOTE | 2017-04-27 14:34 | PN ---
Progress Note, Physician History of Present Illness: patient doing well no complaints leg in cast other leg doing well - Current Medication List Current Medications: Active Medications Acetaminophen (Tylenol -) 325 mg PO TID [facility] Last Admin: 04/27/17 13:34 Dose: 325 mg Albuterol Sulfate (Ventolin Hfa Inhaler -) 2 puff IH Q6H PRN PRN Reason: ASTHMA Allopurinol (Zyloprim -) 100 mg PO DAILY [facility] Last Admin: 04/27/17 09:21 Dose: 100 mg Atorvastatin Calcium (Lipitor -) 80 mg PO HS [facility] Last Admin: 04/26/17 21:34 Dose: 80 mg Bacitracin (Bacitracin -) 1 applic TP BID [facility] Last Admin: 04/27/17 09:19 Dose: 1 applic Budesonide/Formoterol Fumarate (Symbicort 160/4.5mcg -) 2 puff IH BID [facility] Last Admin: 04/27/17 09:20 Dose: 2 puff Cinacalcet (Sensipar -) 30 mg PO DAILY [facility] Last Admin: 04/27/17 09:20 Dose: 30 mg Docusate Sodium (Colace -) 300 mg PO [facility] Last Admin: 04/26/17 21:34 Dose: Not Given Heparin Sodium (Porcine) (Heparin -) 5,000 unit SQ TID [facility] Last Admin: 04/27/17 13:34 Dose: 5,000 unit Hydralazine HCl (Apresoline -) 25 mg PO TID [facility] Last Admin: 04/27/17 13:34 Dose: 25 mg Insulin Aspart (Novolog Vial) 6 units SQ TIDAC [facility] Last Admin: 04/27/17 11:22 Dose: 6 units Insulin Detemir (Levemir Vial) 15 units SQ [facility] Last Admin: 04/26/17 21:34 Dose: 15 units Lisinopril (Prinivil) 5 mg PO DAILY [facility] Last Admin: 04/27/17 09:19 Dose: 5 mg Magnesium Oxide (Mag-Ox -) 400 mg PO BID [facility] Last Admin: 04/27/17 09:19 Dose: 400 mg Ofloxacin (Ocuflox 0.3% Eye Drops -) 1 drop OS TID [facility] Stop: 05/01/17 14:01 Last Admin: 04/27/17 14:12 Dose: 1 drop Ondansetron HCl (Zofran Injection) 4 mg IVPUSH Q8H PRN PRN Reason: NAUSEA AND/OR VOMITING Last Admin: 04/26/17 06:29 Dose: 4 mg Oxycodone HCl (Roxicodone -) 5 mg PO TID [facility] Last Admin: 04/27/17 13:34 Dose: 5 mg Sevelamer Carbonate (Renvela -) 800 mg PO TIDCM [facility] Last Admin: 04/27/17 11:47 Dose: 800 mg - Objective Vital Signs: Vital Signs Temperature 98.3 F 04/27/17 10:00 Pulse Rate 94 H 04/27/17 10:00 Respiratory Rate 04/27/17 10:00 Blood Pressure 150/84 04/27/17 10:00 O2 Sat by Pulse Oximetry (%) 94 L 04/27/17 10:00 Constitutional: Yes: No Distress, Calm Neck: Yes: Supple, Trachea Midline Cardiovascular: Yes: Regular Rate and Rhythm Respiratory: Yes: Regular, CTA Bilaterally Gastrointestinal: Yes: Normal Bowel Sounds, Soft Musculoskeletal: Yes: Other Extremities: Yes: Other (rt leg in a cast) Integumentary: Yes: WNL Wound/Incision: Yes: Dressing Dry and Intact Neurological: Yes: Alert, Oriented Psychiatric: Yes: Alert, Oriented Labs: CBC, BMP 04/27/17 06:25 04/27/17 06:25 Assessment/Plan Problem List - Problems (1) ESRD (end stage renal disease) on dialysis Code(s): N18.6 - END STAGE RENAL DISEASE; Z99.2 - DEPENDENCE ON RENAL DIALYSIS (2) Fall Code(s): W19.XXXA - UNSPECIFIED FALL, INITIAL ENCOUNTER (3) Knee pain Code(s): M25.569 - PAIN IN UNSPECIFIED KNEE Qualifiers: Chronicity: unspecified Laterality: right Qualified Code(s): M25.561 - Pain in right knee (4) 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A (5) CAD (coronary artery disease) Code(s): I25.10 - ATHSCL HEART DISEASE OF [place] CORONARY ARTERY W/O ANG PCTRS (6) CHF (congestive heart failure) Code(s): I50.9 - HEART FAILURE, UNSPECIFIED (7) Chronic osteomyelitis of cervical spine Code(s): M46.22 - OSTEOMYELITIS OF [place], CERVICAL REGION (8) Diabetes mellitus Code(s): E11.9 - TYPE 2 DIABETES MELLITUS WITHOUT COMPLICATIONS Qualifiers: Diabetes mellitus type: type 2 Diabetes mellitus complication status: with kidney complications Diabetes mellitus complication detail: with chronic kidney disease (9) Diastolic CHF Code(s): I50.30 - UNSPECIFIED DIASTOLIC (CONGESTIVE) HEART FAILURE (10) ESRD on hemodialysis Code(s): N18.6 - END STAGE RENAL DISEASE; Z99.2 - DEPENDENCE ON RENAL DIALYSIS (11) Hyperlipemia Code(s): E78.5 - HYPERLIPIDEMIA, UNSPECIFIED (12) Hypertension Code(s): I10 - ESSENTIAL (PRIMARY) HYPERTENSION Qualifiers: Hypertension type: essential hypertension Qualified Code(s): I10 - Essential (primary) hypertension (13) Osteomyelitis of left foot Code(s): M86.9 - OSTEOMYELITIS, UNSPECIFIED (14) S/P CABG (coronary artery bypass graft) Code(s): Z95.1 - PRESENCE OF AORTOCORONARY BYPASS GRAFT (15) Stented coronary artery Code(s): Z95.5 - PRESENCE OF CORONARY ANGIOPLASTY IMPLANT AND GRAFT Assessment/Plan continue current mgmt patient stable off of abx close watch for any fevers rest as per primary team and ortho Problem List - Problems (1) ESRD (end stage renal disease) on dialysis Code(s): N18.6 - END STAGE RENAL DISEASE; Z99.2 - DEPENDENCE ON RENAL DIALYSIS (2) Fall Code(s): W19.XXXA - UNSPECIFIED FALL, INITIAL ENCOUNTER (3) Knee pain Code(s): M25.569 - PAIN IN UNSPECIFIED KNEE Qualifiers: Chronicity: unspecified Laterality: right Qualified Code(s): M25.561 - Pain in right knee (4) 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A (5) CAD (coronary artery disease) Code(s): I25.10 - ATHSCL HEART DISEASE OF [place] CORONARY ARTERY W/O ANG PCTRS (6) CHF (congestive heart failure) Code(s): I50.9 - HEART FAILURE, UNSPECIFIED (7) Chronic osteomyelitis of cervical spine Code(s): M46.22 - OSTEOMYELITIS OF [place], CERVICAL REGION (8) Diabetes mellitus Code(s): E11.9 - TYPE 2 DIABETES MELLITUS WITHOUT COMPLICATIONS Qualifiers: Diabetes mellitus type: type 2 Diabetes mellitus complication status: with kidney complications Diabetes mellitus complication detail: with chronic kidney disease (9) Diastolic CHF Code(s): I50.30 - UNSPECIFIED DIASTOLIC (CONGESTIVE) HEART FAILURE (10) ESRD on hemodialysis Code(s): N18.6 - END STAGE RENAL DISEASE; Z99.2 - DEPENDENCE ON RENAL DIALYSIS (11) Hyperlipemia Code(s): E78.5 - HYPERLIPIDEMIA, UNSPECIFIED (12) Hypertension Code(s): I10 - ESSENTIAL (PRIMARY) HYPERTENSION Qualifiers: Hypertension type: essential hypertension Qualified Code(s): I10 - Essential (primary) hypertension (13) Osteomyelitis of left foot Code(s): M86.9 - OSTEOMYELITIS, UNSPECIFIED (14) S/P CABG (coronary artery bypass graft) Code(s): Z95.1 - PRESENCE OF AORTOCORONARY BYPASS GRAFT (15) Stented coronary artery Code(s): Z95.5 - PRESENCE OF CORONARY ANGIOPLASTY IMPLANT AND GRAFT plan continue to monitor watch for fevers rest as per ortho and primary team
--- NOTE | 2017-04-27 16:26 | PN ---
Progress Note (short form) - Note Progress Note: Renal Follow up for ESRD on HD Pt seen and examined at the bedside no acute complaints denies any sob, chest pain, abd pain, N/V Vital Signs Temperature 98.3 F 04/27/17 10:00 Pulse Rate 94 H 04/27/17 10:00 Respiratory Rate 18 04/27/17 10:00 Blood Pressure 150/84 04/27/17 10:00 O2 Sat by Pulse Oximetry (%) 94 L 04/27/17 10:00 Intake & Output 04/24/17 04/25/17 04/26/17 04/27/17 23:59 23:59 23:59 23:59 Intake Total 1120 130 70 200 Output Total 80 200 150 800 Balance 1040 -70 -80 -600 NAD awake and alert RRR CTA NO LE edema CBC, BMP 04/27/17 06:25 04/27/17 06:25 Current Medications Acetaminophen (Tylenol -) 325 mg PO TID [facility] Last Admin: 04/27/17 13:34 Dose: 325 mg Albuterol Sulfate (Ventolin Hfa Inhaler -) 2 puff IH Q6H PRN PRN Reason: ASTHMA Allopurinol (Zyloprim -) 100 mg PO DAILY [facility] Last Admin: 04/27/17 09:21 Dose: 100 mg Atorvastatin Calcium (Lipitor -) 80 mg PO HS [facility] Last Admin: 04/26/17 21:34 Dose: 80 mg Bacitracin (Bacitracin -) 1 applic TP BID [facility] Last Admin: 04/27/17 09:19 Dose: 1 applic Budesonide/Formoterol Fumarate (Symbicort 160/4.5mcg -) 2 puff IH BID [facility] Last Admin: 04/27/17 09:20 Dose: 2 puff Cinacalcet (Sensipar -) 30 mg PO DAILY [facility] Last Admin: 04/27/17 09:20 Dose: 30 mg Docusate Sodium (Colace -) 300 mg PO HS [facility] Last Admin: 04/26/17 21:34 Dose: Not Given Heparin Sodium (Porcine) (Heparin -) 5,000 unit SQ TID [facility] Last Admin: 04/27/17 13:34 Dose: 5,000 unit Hydralazine HCl (Apresoline -) 25 mg PO TID [facility] Last Admin: 04/27/17 13:34 Dose: 25 mg Insulin Aspart (Novolog Vial) 6 units SQ TIDAC [facility] Last Admin: 04/27/17 11:22 Dose: 6 units Insulin Detemir (Levemir Vial) 15 units SQ HS [facility] Last Admin: 04/26/17 21:34 Dose: 15 units Lisinopril (Prinivil) 5 mg PO DAILY [facility] Last Admin: 04/27/17 09:19 Dose: 5 mg Magnesium Oxide (Mag-Ox -) 400 mg PO BID [facility] Last Admin: 04/27/17 09:19 Dose: 400 mg Ofloxacin (Ocuflox 0.3% Eye Drops -) 1 drop OS TID [facility] Stop: 05/01/17 14:01 Last Admin: 04/27/17 14:12 Dose: 1 drop Ondansetron HCl (Zofran Injection) 4 mg IVPUSH Q8H PRN PRN Reason: NAUSEA AND/OR VOMITING Last Admin: 04/26/17 06:29 Dose: 4 mg Oxycodone HCl (Roxicodone -) 5 mg PO TID [facility] Last Admin: 04/27/17 13:34 Dose: 5 mg Sevelamer Carbonate (Renvela -) 800 mg PO TIDCM [facility] Last Admin: 04/27/17 11:47 Dose: 800 mg 51 year old gentleman with PMhx of ESRD on HD (TTS), Hypertension, CAD, CHF who presented s/p mechanical fall at home with knee and head trauma with persistent knee pain and swelling. #Mechanical Fall MRI showed high grade tear of the Quad Tendon, Transverse fracture of the patella and possible ACL tear continue supportive care Ortho follow up Physical therapy #ESRD on HD s/p dialysis Thursday next dialysis tomorrow with UF as tolerated Renal diet and fluid restriction #Renal Osteodystrophy continue Renvela and Sensipar trend ca and phos levels #Hypertension continue Lisinopril, Hydralzine Thank you Antwan Hurley DO
[2017-04-27] MEDS: ATORVASTATIN CA 80 MG TABLET (FP) PO SCH (22:38)
[2017-04-27] MEDS: INSULIN DETEMIR 100 UNITS/ML MDV SQ SCH (22:44)
[2017-04-27] MEDS: DOCUSATE SODIUM 100 MG CAPSULE (FP) PO SCH (22:44)
[2017-04-28] MEDS: HEPARIN NA (PORCINE) 5,000 UNITS/ML 1ML VIAL SQ SCH ×2 (06:25→15:45)
[2017-04-28] MEDS: INSULIN (NOVOLOG) ASPART 100 UNITS/ML 10ML VIAL SQ SCH ×3 (06:25→16:47)
[2017-04-28] MEDS: hydrALAZINE HCL 25 MG TABLET (FP) PO SCH ×2 (06:25→15:33)
[2017-04-28] MEDS: ACETAMINOPHEN 325 MG TABLET (FP) PO SCH ×2 (06:25→15:32)
[2017-04-28] MEDS: oxyCODONE HCL 5 MG TABLET PO SCH ×2 (06:26→15:32)
[2017-04-28] MEDS: OFLOXACIN 0.3% OPHTHALMIC SOLUTION 5 ML BOTTLE OS SCH ×2 (06:29→15:46)
[2017-04-28] MEDS: SEVELAMER CARBONATE 800 MG TAB (FP) PO SCH ×3 (08:24→17:16)
--- NOTE | 2017-04-28 09:19 | PN ---
Progress Note (short form) - Note Progress Note: Neurology History of Present Illness: 51 year old male, with a significant past medical history of hypertension, hyperlipidemia, diabetes, anemia, GERD, silent AK(s/p 2 vessel CABG), CHF and ESRD(on dialysis T, Th S,), who presented to the emergency department s/p unwitnessed mechanical fall. The patient reports he was walking with a walker when his his left leg gave out, causing him to fall and hit his right knee on the floor and his head on the back of the door. Patient reports LOC for several seconds and headache, but denied any associated numbness and tingling, dizziness , lightheadedness, or changes in vision. Remains at baseline, CT head completed and discussed. No focal deficits. No new neurologic events over the weekend. Resting comfortably. Active Medications Acetaminophen (Tylenol -) 325 mg PO TID [facility] Last Admin: 04/28/17 06:25 Dose: 325 mg Albuterol Sulfate (Ventolin Hfa Inhaler -) 2 puff IH Q6H PRN PRN Reason: ASTHMA Allopurinol (Zyloprim -) 100 mg PO DAILY [facility] Last Admin: 04/27/17 09:21 Dose: 100 mg Atorvastatin Calcium (Lipitor -) 80 mg PO HS [facility] Last Admin: 04/27/17 22:38 Dose: 80 mg Bacitracin (Bacitracin -) 1 applic TP BID [facility] Last Admin: 04/27/17 22:44 Dose: Not Given Budesonide/Formoterol Fumarate (Symbicort 160/4.5mcg -) 2 puff IH BID [facility] Last Admin: 04/27/17 22:39 Dose: 2 puff Cinacalcet (Sensipar -) 30 mg PO DAILY [facility] Last Admin: 04/27/17 09:20 Dose: 30 mg Docusate Sodium (Colace -) 300 mg PO HS [facility] Last Admin: 04/27/17 22:44 Dose: Not Given Epoetin Lauri (Procrit -) 6,000 unit IVPUSH ONCE ONE Stop: 04/28/17 06:01 Heparin Sodium (Porcine) (Heparin -) 5,000 unit SQ TID [facility] Last Admin: 04/28/17 06:25 Dose: 5,000 unit Hydralazine HCl (Apresoline -) 25 mg PO TID [facility] Last Admin: 04/28/17 06:25 Dose: 25 mg Insulin Aspart (Novolog Vial) 6 units SQ TIDAC [facility] Last Admin: 04/28/17 06:25 Dose: 6 units Insulin Detemir (Levemir Vial) 15 units SQ HS [facility] Last Admin: 04/27/17 22:44 Dose: Not Given Lisinopril (Prinivil) 5 mg PO DAILY [facility] Last Admin: 04/27/17 09:19 Dose: 5 mg Magnesium Oxide (Mag-Ox -) 400 mg PO BID [facility] Last Admin: 04/27/17 22:39 Dose: 400 mg Ofloxacin (Ocuflox 0.3% Eye Drops -) 1 drop OS TID [facility] Stop: 05/01/17 14:01 Last Admin: 04/28/17 06:29 Dose: 1 drop Ondansetron HCl (Zofran Injection) 4 mg IVPUSH Q8H PRN PRN Reason: NAUSEA AND/OR VOMITING Last Admin: 04/26/17 06:29 Dose: 4 mg Oxycodone HCl (Roxicodone -) 5 mg PO TID [facility] Last Admin: 04/28/17 06:26 Dose: 5 mg Sevelamer Carbonate (Renvela -) 800 mg PO TIDCM [facility] Last Admin: 04/27/17 17:08 Dose: 800 mg Physical Examination Vital Signs Period Temp Pulse Resp BP Sys/Henao Pulse Ox Last 24 Hr 97.9 F-98.6 F 84-96 18-20 147-164/72-96 94-95 GENERAL: Awake, alert, and fully oriented, in no acute distress HEAD: No signs of trauma EYES: PERRLA, EOMI, sclera anicteric, conjunctiva clear ENT: Auricles normal inspection, hearing grossly normal, nares patent, oropharynx clear without exudates. Moist mucosa NECK: Normal ROM, supple, no lymphadenopathy, JVD, or masses LUNGS: Breath sounds equal, clear to auscultation bilaterally. No wheezes, and no crackles HEART: Regular rate and rhythm, normal S1 and S2, no murmurs, rubs or gallops ABDOMEN: Soft, nontender, normoactive bowel sounds. No guarding, no rebound. No masses EXTREMITIES: R knee with medial tenderness at the proximal end of the tibia. + Medial pain with Margareth's test. Remainder of extremities with normal range of motion, no edema. No clubbing or cyanosis. No cords, erythema, or tenderness. + Partial amputation L foot. NEUROLOGICAL: EOMI intact, sensory normal, strength equal, gait deferred SKIN: Warm, Dry, normal turgor, no rashes or lesions noted. CBCD WBC 5.0 K/mm3 (4.0-10.0) 04/27/17 06:25 RBC 3.45 M/mm3 (4.00-5.60) L 04/27/17 06:25 Hgb 10.6 GM/dL (11.7-16.9) L 04/27/17 06:25 Hct 32.2 % (35.4-49) L 04/27/17 06:25 MCV 93.4 fl (80-96) 04/27/17 06:25 MCHC 33.0 g/dl (32.0-35.9) 04/27/17 06:25 RDW 16.6 % (11.9-15.9) H 04/27/17 06:25 Plt Count 290 K/MM3 (134-434) 04/27/17 06:25 MPV 8.3 fl (7.5-11.1) 04/27/17 06:25 CMP Sodium 135 mmol/L (136-145) L 04/27/17 06:25 Potassium 4.5 mmol/L (3.5-5.1) 04/27/17 06:25 Chloride 97 mmol/L (98-107) L 04/27/17 06:25 Carbon Dioxide 29 mmol/L (21-32) 04/27/17 06:25 Anion Gap 9 (8-16) 04/27/17 06:25 BUN 54 mg/dL (7-18) H 04/27/17 06:25 Creatinine 8.7 mg/dL (0.7-1.3) H* 04/27/17 06:25 Creat Clearance w eGFR 6.40 (>60) 04/23/17 10:15 Calcium 7.9 mg/dL (8.5-10.1) L 04/27/17 06:25 Total Bilirubin 0.4 mg/dL (0.2-1.0) 04/23/17 10:15 AST 8 U/L (15-37) L 04/23/17 10:15 ALT 8 U/L (12-78) L 04/23/17 10:15 Alkaline Phosphatase 384 U/L (45-117) H 04/23/17 10:15 Total Protein 7.3 g/dl (6.4-8.2) 04/23/17 10:15 Albumin 3.2 g/dl (3.4-5.0) L 04/23/17 10:15 CT head reviewed Plan 51 year old male, with a significant past medical history of hypertension, hyperlipidemia, diabetes, anemia, GERD, silent AK(s/p 2 vessel CABG), CHF and ESRD(on dialysis T, Th S,), who presented to the emergency department s/p unwitnessed mechanical fall. The patient reported he was walking with a walker when his his left leg gave out, causing him to fall and hit his right knee on the floor and his head on the back of the door. Ct head completed No focal deficits Ortho for knee Maintain normotensive BP range, continue anti-HTN medications Hemodialysis per renal HD per renal. Fall precautions. Neurologically stable at this time No futher rec'd at this time
[2017-04-28] MEDS ORDERED: EPOETIN ALFA 3,000 UNIT/1 ML ML IVPUSH ONE (09:45)
[2017-04-28 09:48] LABS: HEMATOCRIT 29.6 % (35.4-49); HEMOGLOBIN 9.7 GM/dL (11.7-16.9); MCH 30.4 pg (25.7-33.7); MCHC 32.8 g/dl (32.0-35.9); MEAN CELL VOLUME 92.5 fl (80-96); MEAN PLT VOLUME 8.4 fl (7.5-11.1); PLATELET COUNT 252 K/MM3 (134-434); RDW 16.3 % (11.9-15.9)
[2017-04-28 10:19] LABS: ANION GAP 11 (8-16); BLOOD UREA NITROGEN 58 mg/dL (7-18); CALCIUM 7.7 mg/dL (8.5-10.1); CHLORIDE 99 mmol/L (98-107); CO2 27 mmol/L (21-32); GLUCOSE,RANDOM 126 mg/dL (74-106); PHOSPHOROUS 6.3 mg/dL (2.5-4.9); POTASSIUM 4.3 mmol/L (3.5-5.1); SODIUM 137 mmol/L (136-145)
[2017-04-28] MEDS: BUDESONIDE/FORMETEROL FUMARATE 160/4.5 mcg INHALER IH SCH (10:35)
[2017-04-28 10:44] LABS: CREATININE 9.1 mg/dL (0.7-1.3)
--- NOTE | 2017-04-28 10:49 | CONS ---
PHYSICAL MEDICINE REHABILITATION CONSULTATION DATE OF CONSULTATION: 04/28/2017 HISTORY OF PRESENT ILLNESS: The patient is a 51-year-old man with past medical history of a left transmetatarsal amputation as well as end-stage renal disease on hemodialysis, who was admitted following a fall. Patient states that he uses a walker, and his left lower extremity buckled on him. He did hit his head as well as his right knee. On admission, he underwent a CT of the head which showed hyperdense left eye globe and mild volume loss but no acute intracranial pathology. He also underwent x-ray, and subsequently, he had an MRI of his left knee, which demonstrated at least a high-grade, almost-complete tear of the distal quadriceps tendon without any retraction; transverse fracture of the inferior patella; possible mild partial tear of the distal anterior cruciate ligament; and large suprapatellar effusion. Patient underwent orthopedic evaluation, and Dr. Julian thought the patient could be treated nonoperatively, was placed in a cast and placed weightbearing as tolerated to the right lower extremity. Patient has been seen by Physical Therapy and able to ambulate 20 feet. Blood work has been fairly stable. As of today, his WBC is 5.0, hemoglobin 9.7, platelet count 252. His chemistry as of yesterday showed elevated BUN 54, creatinine 8.7, consistent with chronic kidney disease. Sodium was also slightly low, 135, and chloride slightly low, 97. His calcium level is low, but corrects for a low albumin of 3.2 as of April 23. Patient is on subcutaneous heparin for DVT prophylaxis, and the discharge plan apparently is for short-term rehab where he can get hemodialysis. Patient has no headache, no lightheadedness since the fall. PAST MEDICAL AND SURGICAL HISTORY: Patient has end-stage renal disease on hemodialysis; coronary artery disease status post CABG and stent; congestive heart failure; hypertension; hyperlipidemia; left foot infection; osteomyelitis, status post transmetatarsal amputation; MRSA; cervical osteomyelitis; a history of GI bleed and gastroesophageal reflux disease; history of gout; and left eye blindness. Patient apparently is on a renal transplant list. Also, AV fistula in the left upper extremity. SOCIAL HISTORY: No alcohol. Former tobacco user but no recent tobacco use. He lives with his . He is retired, on disability. He ambulated with a rolling walker, independent with ADLs, and lives in an apartment with an elevator for access. ALLERGIES: None noted. REVIEW OF SYSTEMS: No lightheadedness. No dizziness. No headache. He has blindness in his left eye but no new visual change in the right eye. No nausea, vomiting, difficulty swallowing, difficulty chewing. No chest pain, shortness of breath. No dyspnea on exertion, cough, or abdominal discomfort. No bowel or bladder complaints. No fever or chills. He has a lot of pain still in his right knee and again difficulty with walking. He also has some numbness in both lower extremities distally. No residual pain in the distal left lower extremity. No skin rash but some dysvascular changes in the lower extremities and again the left AV fistula. PHYSICAL EXAMINATION: General: He is in no acute distress, seen lying supine in bed. HEENT: He is normocephalic and atraumatic. His extraocular muscles appear intact. Neck: Supple without any palpable spasm. Extremities: Without any pitting edema or calf tenderness but he does have a transmetatarsal amputation on the left, and he has a cast extending from the proximal right lower extremity to the ankle, which seems to have good clearance. Neuromuscular: He is awake, alert, seems to have good insight into his medical conditions. He is oriented x3. Cranial nerves 2-12 grossly intact. Fairly good motor power and strength throughout the upper extremities, with some diminished sensation distally to pinprick. In the lower extremities, he has diminished sensation below the knee on the left to pinprick and also in the distal right foot. Weakness in the right proximal lower extremity. Better strength in the left lower extremity. He has good dorsiflexion on the right but limited range with a short transmetatarsal on the left. Unable to assess gait at this time. OVERALL IMPRESSION: 1. Deficits in mobility and activities of daily living which are multifactorial. 2. Right quadriceps tendon high-grade and possible complete tear as well as an anterior cruciate ligament mild tear, status post casting. 3. Status post head trauma, negative CT. No further symptoms. 4. Left transmetatarsal amputation, old. 5. Peripheral neuropathy, probably due to a combination of diabetes as well as chronic kidney disease. 6. Coronary artery disease status post coronary artery bypass graft and stent. 7. End-stage renal disease on hemodialysis. 8. Blind, left eye. 9. Other medical problems as noted above. 10. Hypoalbuminemia. 11. Elevated risk for deep venous thrombosis due to immobility. 12. Elevated risk for skin breakdown due to history of peripheral neuropathy and hypoalbuminemia as well as immobility. PLAN/SUGGESTION: 1. Continue physical therapy at the bedside. 2. Out of bed to chair. 3. Agree with subcutaneous heparin. 4. Pain control. 5. Monitor cast. 6. Monitor skin, particularly right heel. Elevate off bed, as well as sacrum. Left heel has a protective dressing. 7. Agree with short-term rehab in a [facility] facility where he will need hemodialysis. 8. Weightbearing as tolerated, right lower extremity. 9. Follow up with Orthopedics as directed. Thank you for this referral. AMY GLASS M.D. [id number]
[2017-04-28] MEDS ORDERED: PT OWN MED DRAWER 7, Y5N ONE (12:17)
--- NOTE | 2017-04-28 12:24 | DS ---
Physical Examination Vital Signs: Vital Signs Temperature 97.9 F 04/28/17 06:00 Pulse Rate 95 H 04/28/17 10:30 Respiratory Rate 18 04/28/17 10:30 Blood Pressure 126/72 04/28/17 10:30 O2 Sat by Pulse Oximetry (%) 95 04/27/17 21:00 Constitutional: Yes: No Distress Eyes: Yes: Conjunctiva Clear HENT: Yes: Atraumatic, Normocephalic Neck: Yes: Supple, Trachea Midline Cardiovascular: Yes: Regular Rate and Rhythm Respiratory: Yes: Regular, CTA Bilaterally Gastrointestinal: Yes: Normal Bowel Sounds, Soft Musculoskeletal: Yes: Other (Rt Knee on cast Lt Foot TMT amputation) Edema: No Labs: CBC, BMP 04/28/17 09:30 04/28/17 09:30 Discharge Summary Reason For Visit: SYNCOPE; KNEE PAIN Current Active Problems ESRD (end stage renal disease) on dialysis (Acute) Fall (Acute) Knee pain (Acute) Nondisplaced transverse fracture of right patella, initial encounter for closed fracture (Acute) Syncope (Acute) Procedures: Principal: Pt seen by Ortho for Rt Knee pain. MRI: Quadrceps tendon tear/ Patella distal Fracture/ ACL tear. Pt seen By ortho: On cast FU in 3 weeks with ortho Condition: Stable - Instructions Referrals: Yamilka Hernandez MD [Primary Care Provider] - - Home Medications Comprehensive Discharge Medication List: Ambulatory Orders Allopurinol [Zyloprim -] 100 mg PO DAILY 11/28/16 Atorvastatin Ca [Lipitor] 80 mg PO HS 11/28/16 Cinacalcet HCl [Sensipar] 30 mg PO DAILY 11/28/16 Ferrous Sulfate 325 mg PO DAILY 11/28/16 Furosemide [Lasix] 80 mg PO DAILY 11/28/16 Hydralazine HCl 50 mg PO DAILY 11/28/16 Lisinopril 5 mg PO DAILY 11/28/16 Magnesium Oxide [Mag-Ox -] 400 mg PO TID 11/28/16 Nitroglycerin 0.4 mg SL DAILY PRN 11/28/16 Omeprazole 20 mg PO DAILY 11/28/16 Sevelamer Carbonate [Renvela -] 800 mg NR TID 11/28/16 Acetaminophen W/ Codeine #3 [Tylenol # 3 -] 1 tab PO Q6H #20 tablet MDD 4 Pt will be seeing Ortho in one week and PMD Dr Pickett while in [facility] Dr Mims is going to FU
--- NOTE | 2017-04-28 13:19 | PN ---
Progress Note, Physician History of Present Illness: stable no new events - Current Medication List Current Medications: Active Medications Acetaminophen (Tylenol -) 325 mg PO TID [facility] Last Admin: 04/28/17 06:25 Dose: 325 mg Albuterol Sulfate (Ventolin Hfa Inhaler -) 2 puff IH Q6H PRN PRN Reason: ASTHMA Allopurinol (Zyloprim -) 100 mg PO DAILY [facility] Last Admin: 04/27/17 09:21 Dose: 100 mg Atorvastatin Calcium (Lipitor -) 80 mg PO [facility] Last Admin: 04/27/17 22:38 Dose: 80 mg Bacitracin (Bacitracin -) 1 applic TP BID [facility] Last Admin: 04/27/17 22:44 Dose: Not Given Budesonide/Formoterol Fumarate (Symbicort 160/4.5mcg -) 2 puff IH BID [facility] Last Admin: 04/27/17 22:39 Dose: 2 puff Cinacalcet (Sensipar -) 30 mg PO DAILY [facility] Last Admin: 04/27/17 09:20 Dose: 30 mg Docusate Sodium (Colace -) 300 mg PO [facility] Last Admin: 04/27/17 22:44 Dose: Not Given Heparin Sodium (Porcine) (Heparin -) 5,000 unit SQ TID [facility] Last Admin: 04/28/17 06:25 Dose: 5,000 unit Hydralazine HCl (Apresoline -) 25 mg PO TID [facility] Last Admin: 04/28/17 06:25 Dose: 25 mg Insulin Aspart (Novolog Vial) 6 units SQ TIDAC [facility] Last Admin: 04/28/17 12:41 Dose: 6 units Insulin Detemir (Levemir Vial) 15 units SQ [facility] Last Admin: 04/27/17 22:44 Dose: Not Given Lisinopril (Prinivil) 5 mg PO DAILY [facility] Last Admin: 04/27/17 09:19 Dose: 5 mg Magnesium Oxide (Mag-Ox -) 400 mg PO BID [facility] Last Admin: 04/27/17 22:39 Dose: 400 mg Ofloxacin (Ocuflox 0.3% Eye Drops -) 1 drop OS TID [facility] Stop: 05/01/17 14:01 Last Admin: 04/28/17 06:29 Dose: 1 drop Ondansetron HCl (Zofran Injection) 4 mg IVPUSH Q8H PRN PRN Reason: NAUSEA AND/OR VOMITING Last Admin: 04/26/17 06:29 Dose: 4 mg Oxycodone HCl (Roxicodone -) 5 mg PO TID [facility] Last Admin: 04/28/17 06:26 Dose: 5 mg Sevelamer Carbonate (Renvela -) 800 mg PO TIDCM [facility] Last Admin: 04/27/17 17:08 Dose: 800 mg - Objective Vital Signs: Vital Signs Temperature 97.9 F 04/28/17 06:00 Pulse Rate 93 H 04/28/17 12:00 Respiratory Rate 18 04/28/17 12:00 Blood Pressure 109/65 04/28/17 12:00 O2 Sat by Pulse Oximetry (%) 95 04/28/17 09:00 Constitutional: Yes: No Distress, Calm Cardiovascular: Yes: Regular Rate and Rhythm Respiratory: Yes: Regular, CTA Bilaterally Gastrointestinal: Yes: Normal Bowel Sounds, Soft Musculoskeletal: Yes: Other Extremities: Yes: Other (rt leg in cast) Wound/Incision: Yes: Dressing Dry and Intact Neurological: Yes: Alert, Oriented Psychiatric: Yes: Alert, Oriented Labs: CBC, BMP 04/28/17 09:30 04/28/17 09:30 Assessment/Plan Problem List - Problems (1) ESRD (end stage renal disease) on dialysis Code(s): N18.6 - END STAGE RENAL DISEASE; Z99.2 - DEPENDENCE ON RENAL DIALYSIS (2) Fall Code(s): W19.XXXA - UNSPECIFIED FALL, INITIAL ENCOUNTER (3) Knee pain Code(s): M25.569 - PAIN IN UNSPECIFIED KNEE Qualifiers: Chronicity: unspecified Laterality: right Qualified Code(s): M25.561 - Pain in right knee (4) 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A (5) CAD (coronary artery disease) Code(s): I25.10 - ATHSCL HEART DISEASE OF [place] CORONARY ARTERY W/O ANG PCTRS (6) CHF (congestive heart failure) Code(s): I50.9 - HEART FAILURE, UNSPECIFIED (7) Chronic osteomyelitis of cervical spine Code(s): M46.22 - OSTEOMYELITIS OF [place], CERVICAL REGION (8) Diabetes mellitus Code(s): E11.9 - TYPE 2 DIABETES MELLITUS WITHOUT COMPLICATIONS Qualifiers: Diabetes mellitus type: type 2 Diabetes mellitus complication status: with kidney complications Diabetes mellitus complication detail: with chronic kidney disease (9) Diastolic CHF Code(s): I50.30 - UNSPECIFIED DIASTOLIC (CONGESTIVE) HEART FAILURE (10) ESRD on hemodialysis Code(s): N18.6 - END STAGE RENAL DISEASE; Z99.2 - DEPENDENCE ON RENAL DIALYSIS (11) Hyperlipemia Code(s): E78.5 - HYPERLIPIDEMIA, UNSPECIFIED (12) Hypertension Code(s): I10 - ESSENTIAL (PRIMARY) HYPERTENSION Qualifiers: Hypertension type: essential hypertension Qualified Code(s): I10 - Essential (primary) hypertension (13) Osteomyelitis of left foot Code(s): M86.9 - OSTEOMYELITIS, UNSPECIFIED (14) S/P CABG (coronary artery bypass graft) Code(s): Z95.1 - PRESENCE OF AORTOCORONARY BYPASS GRAFT (15) Stented coronary artery Code(s): Z95.5 - PRESENCE OF CORONARY ANGIOPLASTY IMPLANT AND GRAFT Assessment/Plan continue current mgmt patient stable off of abx close watch for any fevers rest as per primary team and ortho Problem List - Problems (1) ESRD (end stage renal disease) on dialysis Code(s): N18.6 - END STAGE RENAL DISEASE; Z99.2 - DEPENDENCE ON RENAL DIALYSIS (2) Fall Code(s): W19.XXXA - UNSPECIFIED FALL, INITIAL ENCOUNTER (3) Knee pain Code(s): M25.569 - PAIN IN UNSPECIFIED KNEE Qualifiers: Chronicity: unspecified Laterality: right Qualified Code(s): M25.561 - Pain in right knee (4) 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A (5) CAD (coronary artery disease) Code(s): I25.10 - ATHSCL HEART DISEASE OF [place] CORONARY ARTERY W/O ANG PCTRS (6) CHF (congestive heart failure) Code(s): I50.9 - HEART FAILURE, UNSPECIFIED (7) Chronic osteomyelitis of cervical spine Code(s): M46.22 - OSTEOMYELITIS OF [place], CERVICAL REGION (8) Diabetes mellitus Code(s): E11.9 - TYPE 2 DIABETES MELLITUS WITHOUT COMPLICATIONS Qualifiers: Diabetes mellitus type: type 2 Diabetes mellitus complication status: with kidney complications Diabetes mellitus complication detail: with chronic kidney disease (9) Diastolic CHF Code(s): I50.30 - UNSPECIFIED DIASTOLIC (CONGESTIVE) HEART FAILURE (10) ESRD on hemodialysis Code(s): N18.6 - END STAGE RENAL DISEASE; Z99.2 - DEPENDENCE ON RENAL DIALYSIS (11) Hyperlipemia Code(s): E78.5 - HYPERLIPIDEMIA, UNSPECIFIED (12) Hypertension Code(s): I10 - ESSENTIAL (PRIMARY) HYPERTENSION Qualifiers: Hypertension type: essential hypertension Qualified Code(s): I10 - Essential (primary) hypertension (13) Osteomyelitis of left foot Code(s): M86.9 - OSTEOMYELITIS, UNSPECIFIED (14) S/P CABG (coronary artery bypass graft) Code(s): Z95.1 - PRESENCE OF AORTOCORONARY BYPASS GRAFT (15) Stented coronary artery Code(s): Z95.5 - PRESENCE OF CORONARY ANGIOPLASTY IMPLANT AND GRAFT plan continue to monitor continue as per ortho primary physio stable off of abx
[2017-04-28 15:25] LABS: CREATININE 3.4 mg/dL (0.7-1.3)
[2017-04-28] MEDS: LISINOPRIL 5 MG TABLET (FP) PO SCH (15:25)
[2017-04-28] MEDS: MAGNESIUM OXIDE 400 MG TABLET (FP) PO SCH (15:25)
[2017-04-28] MEDS: ALLOPURINOL 100 MG TABLET (FP) PO SCH (15:26)
[2017-04-28] MEDS: CINACALCET HCL 30 MG TAB (FP) PO SCH (15:26)
[2017-04-28 15:28] VITALS: BP 131/74; PULSE 95; TEMP 98.5
[2017-04-28] MEDS: BACITRACIN 15 GM TUBE TOPICAL OINTMENT TP SCH (15:35)
--- NOTE | 2017-04-28 16:43 | PN ---
Progress Note (short form) - Note Progress Note: Renal Follow up for ESRD on HD Pt seen and examined during dialysis pt tolerating dialysis well goal UF is 3.5L BP is stable access with good function Vital Signs Temperature 98.5 F 04/28/17 14:27 Pulse Rate 95 H 04/28/17 14:27 Respiratory Rate 16 04/28/17 14:27 Blood Pressure 131/74 04/28/17 14:27 O2 Sat by Pulse Oximetry (%) 95 04/28/17 09:00 NAD awake and alert RRR CTA NO LE edema CBC, BMP 04/28/17 09:30 04/28/17 13:30 Current Medications Acetaminophen (Tylenol -) 325 mg PO TID [facility] Last Admin: 04/28/17 15:32 Dose: 325 mg Albuterol Sulfate (Ventolin Hfa Inhaler -) 2 puff IH Q6H PRN PRN Reason: ASTHMA Allopurinol (Zyloprim -) 100 mg PO DAILY [facility] Last Admin: 04/28/17 15:26 Dose: 100 mg Atorvastatin Calcium (Lipitor -) 80 mg PO HS [facility] Last Admin: 04/27/17 22:38 Dose: 80 mg Bacitracin (Bacitracin -) 1 applic TP BID [facility] Last Admin: 04/28/17 15:35 Dose: 1 applic Budesonide/Formoterol Fumarate (Symbicort 160/4.5mcg -) 2 puff IH BID [facility] Last Admin: 04/28/17 10:35 Dose: 2 puff Cinacalcet (Sensipar -) 30 mg PO DAILY [facility] Last Admin: 04/28/17 15:26 Dose: 30 mg Docusate Sodium (Colace -) 300 mg PO HS [facility] Last Admin: 04/27/17 22:44 Dose: Not Given Heparin Sodium (Porcine) (Heparin -) 5,000 unit SQ TID [facility] Last Admin: 04/28/17 15:45 Dose: 5,000 unit Hydralazine HCl (Apresoline -) 25 mg PO TID [facility] Last Admin: 04/28/17 15:33 Dose: 25 mg Insulin Aspart (Novolog Vial) 6 units SQ TIDAC [facility] Last Admin: 04/28/17 12:41 Dose: 6 units Insulin Detemir (Levemir Vial) 15 units SQ HS [facility] Last Admin: 04/27/17 22:44 Dose: Not Given Lisinopril (Prinivil) 5 mg PO DAILY [facility] Last Admin: 04/28/17 15:25 Dose: 5 mg Magnesium Oxide (Mag-Ox -) 400 mg PO BID [facility] Last Admin: 04/28/17 15:25 Dose: 400 mg Ofloxacin (Ocuflox 0.3% Eye Drops -) 1 drop OS TID [facility] Stop: 05/01/17 14:01 Last Admin: 04/28/17 15:46 Dose: 1 drop Ondansetron HCl (Zofran Injection) 4 mg IVPUSH Q8H PRN PRN Reason: NAUSEA AND/OR VOMITING Last Admin: 04/26/17 06:29 Dose: 4 mg Oxycodone HCl (Roxicodone -) 5 mg PO TID [facility] Last Admin: 04/28/17 15:32 Dose: 5 mg Sevelamer Carbonate (Renvela -) 800 mg PO TIDCM [facility] Last Admin: 04/28/17 15:25 Dose: 800 mg 51 year old gentleman with PMhx of ESRD on HD (TTS), Hypertension, CAD, CHF who presented s/p mechanical fall at home with knee and head trauma with persistent knee pain and swelling. #Mechanical Fall MRI showed high grade tear of the Quad Tendon, Transverse fracture of the patella and possible ACL tear continue supportive care Ortho follow up Physical therapy #ESRD on HD tolerating dialysis today goal UF is 3.5L #Renal Osteodystrophy continue Renvela and Sensipar trend ca and phos levels #Hypertension continue Lisinopril, Hydralzine for discharge today Thank you Antwan Hurley DO
== END 2017-04-28 18:05 | DRG 562 ==
LOC: JER 08:56 → JERBED 14:12 → J4S 19:32
PROVIDERS: ADMIT Internal Medicine; ATTEND Internal Medicine
PROC: 5A1D70Z Performance of Urinary Filtration, Intermittent, Less than 6 Hours Per Day (ICD-10-PCS; principal; 2017-04-23)
PROC: 5A1D70Z Performance of Urinary Filtration, Intermittent, Less than 6 Hours Per Day (ICD-10-PCS; 2017-04-25)
PROC: 5A1D70Z Performance of Urinary Filtration, Intermittent, Less than 6 Hours Per Day (ICD-10-PCS; 2017-04-28)
DX: S82.034A Nondisplaced transverse fracture of right patella, initial encounter for closed fracture (principal); N18.6 End stage renal disease; M46.22 Osteomyelitis of vertebra, cervical region; J44.1 Chronic obstructive pulmonary disease with (acute) exacerbation; I13.2 Hypertensive heart and chronic kidney disease with heart failure and with stage 5 chronic kidney disease, or end stage renal disease; I50.32 Chronic diastolic (congestive) heart failure; K21.9 Gastro-esophageal reflux disease without esophagitis; S76.111A Strain of right quadriceps muscle, fascia and tendon, initial encounter; E78.5 Hyperlipidemia, unspecified; M25.461 Effusion, right knee; D64.9 Anemia, unspecified; I25.2 Old myocardial infarction; I25.10 Atherosclerotic heart disease of native coronary artery without angina pectoris; E11.22 Type 2 diabetes mellitus with diabetic chronic kidney disease; F41.9 Anxiety disorder, unspecified; Z89.432 Acquired absence of left foot; M10.9 Gout, unspecified; D63.1 Anemia in chronic kidney disease; N25.0 Renal osteodystrophy; W18.39XA Other fall on same level, initial encounter; Y93.89 Activity, other specified; Y92.098 Other place in other non-institutional residence as the place of occurrence of the external cause; R55 Syncope and collapse; Z99.2 Dependence on renal dialysis; Z87.891 Personal history of nicotine dependence; Z95.1 Presence of aortocoronary bypass graft; Z95.5 Presence of coronary angioplasty implant and graft
CPT/HCPCS: 36415; 70450-TC; 73562-TC-RT-FY; 73718-TC; 80048; 80053; 82550; 82553; 82565; 82962; 84100; 84484; 84520; 85025; 85027; 86704; 86706; 86708; 87340; 93005; 93010; 97116-GP; 97161-GP; 99284-25; J0885; J1644

== ENCOUNTER 2018-02-02 08:19 | Emergency (ER) | payer OTHER ==
[2018-02-02 08:34] VITALS: TEMP 98.6; BMI 32.2
[2018-02-02] MEDS ORDERED: ACETAMINOPHEN 500 MG TABLET (FP) PO ONE (08:55)
--- NOTE | 2018-02-02 09:06 | PDOC ---
History of Present Illness - General Chief Complaint: Nasal Bleeding Stated Complaint: COUGHING,DIZZINESS Time Seen by Provider: 02/02/18 08:42 History Source: Patient Exam Limitations: No Limitations - History of Present Illness Initial Comments: 02/02/18 09:00 Pt is a 52yo M with PMH of ESRD on HD (T,TH,S), HI s/p CABG, HLD, DM, HTN, CHF presenting to ED with complaints of cough and nosebleed that started last night at 11pm. Per daughter, pt was fine until he started coughing and the nosebleed started from the R nostril. Bleeding stopped 15 minutes prior to ED arrival. Pt said he was tilting his head back to stop the bleed and he started to cough up blood. He is also complaining of generalized myalgias and arthralgias, chest pain, SOB, abdominal pain. He is aneuric. Endorses lightheadedness. He denies n/ v/d,constipation, bloody stools, syncope. Denies fevers. He is due for dialysis today at 11. He is taking ASA, no other blood thinners. PMD: [place] Neph: [place] Card: [place]bridgettlli PMH: see hpi PSH: CABG, Metatarsal amputation Meds: see med rec Allergies: nkda Past History - Past Medical History Allergies/Adverse Reactions: Allergies Allergy/AdvReac Type Severity Reaction Status Date / Time No Known Drug Allergies Allergy Verified 10/26/17 12:54 Home Medications: Ambulatory Orders Allopurinol [Zyloprim -] 100 mg PO DAILY 11/28/16 Atorvastatin Ca [Lipitor] 80 mg PO HS 11/28/16 Cinacalcet HCl [Sensipar] 30 mg PO DAILY 11/28/16 Ferrous Sulfate 325 mg PO DAILY 11/28/16 Furosemide [Lasix] 80 mg PO DAILY 11/28/16 Hydralazine HCl 50 mg PO TID 11/28/16 Lisinopril 5 mg PO DAILY 11/28/16 Omeprazole 20 mg PO DAILY 11/28/16 Sevelamer Carbonate [Renvela -] 800 mg NR TID 11/28/16 Aspirin [Jeremiah Chewable Aspirin] 81 mg PO DAILY 10/26/17 Cetirizine HCl 10 mg PO DAILY 10/26/17 Insulin Detemir [Levemir Flextouch] 15 units SQ HS 10/26/17 Acetaminophen W/ Codeine #3 [Tylenol # 3 -] 1 tab PO Q12H PRN tablet MDD 2 09/09 Albuterol 2.5/Ipratropium 0.5 [Duoneb -] 1 amp NEB Q6H PRN amp 10/30/17 Bimatoprost [Lumigan] 1 drop OS HS 02/02/18 Brimonidine Tartrate [Alphagan 0.15% -] 1 drop OS TID 02/02/18 Indomethacin 50 mg PO BID 02/02/18 Insulin Aspart [Novolog] 8 unit SQ AC 02/02/18 Magnesium Oxide [Magnesium] 400 mg PO TID 02/02/18 Tramadol HCl/Acetaminophen [Tramadol-Acetaminophn 37.5-325] 1 each PO BID Anemia: Yes Asthma: No Cancer: No Cardiac Disorders: Yes ("silent HI" CABG x 2 vessels 05/24/2010) CVA: No COPD: No CHF: Yes DVT: No Dementia: No Diabetes: Yes Dialysis: Yes (,,) GI Disorders: Yes (GERD) Disorders: No HTN: Yes Hypercholesterolemia: Yes Liver Disease: No Seizures: No Thyroid Disease: No - Surgical History Abdominal Surgery: No Appendectomy: No Cardiac Surgery: Yes (CABG 05/2010, cardiac stent may 2013) Cholecystectomy: No Lung Surgery: No Orthopedic Surgery: Yes (transmet amp L foot) - Family Disease History Family Disease History: Diabetes: Mother, Heart Disease: Father - Immunization History Immunization Up to Date: Yes - Suicide/Smoking/Psychosocial Hx Smoking Status: No Smoking History: Never smoked Years of Tobacco Use: 0 Have you smoked in the past 12 months: No Number of Cigarettes Smoked Daily: 2 If you are a former smoker, when did you quit?: 1990 Cigars Per Day: 0 Information on smoking cessation initiated: No 'Breaking Loose' booklet given: 06/04/12 Hx Alcohol Use: No Drug/Substance Use Hx: No Substance Use Type: None Hx Substance Use Treatment: No Review of Systems - Review of Systems Constitutional: Yes: Malaise, Weakness. No: Chills, Fever HEENTM: Yes: Nose Bleeding. No: Nose Congestion, Throat Pain, Throat Swelling Respiratory: Yes: Cough, Shortness of Breath, Hemoptysis. No: Stridor, Wheezing Cardiac (ROS): Yes: Chest Pain, Lightheadedness. No: Palpitations, Syncope ABD/GI: Yes: Abdominal cramping. No: Constipated, Diarrhea, Nausea, Vomiting : No: Burning, Dysuria Musculoskeletal: Yes: Back Pain, Joint Pain, Muscle Pain Neurological: Yes: Headache. No: Numbness, Tingling, Tremors *Physical Exam - Vital Signs Last Vital Signs Temp Pulse Resp BP Pulse Ox 98.6 F 99 H 16 162/88 99 02/02/18 08:31 02/02/18 08:31 02/02/18 08:31 02/02/18 08:31 02/02/18 08:31 - Physical Exam General Appearance: Yes: Nourished, Appropriately Dressed, Mild Distress HEENT: positive: EOMI, NIKITA, TMs Normal, Pharynx Normal, Other (R nasal turbinate erytematous with clotted blood) Neck: positive: Trachea midline, Supple. negative: Lymphadenopathy (R), Lymphadenopathy (L) Respiratory/Chest: positive: Lungs Clear, Normal Breath Sounds. negative: Crackles, Rales, Rhonchi, Stridor, Wheezing Cardiovascular: positive: Regular Rhythm, Regular Rate, S1, S2. negative: Edema , JVD, Murmur Vascular Pulses: Carotid (R): 2+, Carotid (L): 2+, Dorsalis-Pedis (R): 2+, Doralis-Pedis (L): 2+ Comments:: 02/02/18 19:06 palpable thrill Gastrointestinal/Abdominal: positive: Normal Bowel Sounds, Soft, Protuberent. negative: Guarding, Rebound, Tenderness Musculoskeletal: negative: CVA Tenderness Extremity: positive: Normal Capillary Refill, Pelvis Stable Integumentary: positive: Normal Color, Dry, Warm Neurologic: positive: supervisor rides II-XII NML intact, Fully Oriented, Alert, Normal Mood/ Affect, Normal Response, Motor Strength 5/5 Moderate Sedation - Procedure Monitoring Vital Signs: Procedure Monitoring Vital Signs Temperature 98.6 F 02/02/18 08:31 Pulse Rate 99 H 02/02/18 08:31 Respiratory Rate 16 02/02/18 08:31 Blood Pressure 162/88 02/02/18 08:31 O2 Sat by Pulse Oximetry (%) 99 02/02/18 08:31 ED Treatment Course - LABORATORY CBC & Chemistry Diagram: 02/02/18 09:30 02/02/18 09:30 - RADIOLOGY Radiology Studies Ordered: Category Date Time Status CHEST PA & LAT [RAD] Stat Radiology 02/02/18 08:54 Ordered Medical Decision Making - Medical Decision Making 02/02/18 09:08 Pt is a 52yo M with PMH of ESRD on HD (T,TH,S), HI s/p CABG, HLD, DM, HTN, CHF presenting to ED with complaints of cough and nosebleed that started last night at 11pm. Per daughter, pt was fine until he started coughing and the nosebleed started from the R nostril. Bleeding stopped 15 minutes prior to ED arrival. Pt said he was tilting his head back to stop the bleed and he started to cough up blood. He is also complaining of generalized myalgias and arthralgias, chest pain, SOB, abdominal pain. He is aneuric. Endorses lightheadedness. He denies trauma, n/v/d,constipation, bloody stools, syncope. Denies fevers. He is due for dialysis today at 11. He is taking ASA, no other blood thinners. Vitals: wnl PE: clotted blood with inflammation of R nasal turbinate. No blood in posterior oropharynx. Lungs CTA bilaterally. normal heart sounds. benign abdomen. Nosebleed has resolved. Will do basic labs, ekg, trop, cxr to r/o pathology. Laboratory Tests 02/02/18 09:30 Potassium 5.5 H BUN 112 H* Creatinine 9.5 H* Calcium 7.3 L Magnesium 2.5 H Alkaline Phosphatase 673 H Cancelled cxr, clear lungs. EKG shows nsr, similar to prior done in October. Labs at baseline. Elevated K, Cr however pt due for dialysis today. Given tramadol for pain. Pt refused Tylenol. 02/02/18 19:07 Pt feeling better. Will dc so that he can go to Dialysis. Given strict return precautions. *DC/Admit/Observation/Transfer Diagnosis at time of Disposition: Epistaxis - Discharge Dispostion Condition at time of disposition: Good Decision to Admit order: No - Referrals Referrals: Paulo Dunbar MD [Primary Care Provider] - Yina Palomo MD [Staff Physician] - - Patient Instructions Printed Discharge Instructions: DI for Nosebleed Additional Instructions: You were seen here today for nose bleed. Your nose is not bleeding at this time. All of your labs are in your normal range. Please go directly to dialysis! If you have a nose bleed, please do not tilt your head back. Use a tissue and apply pressure to the front of the nose. Come back to the emergency room if you have fever, shortness of breath, you start vomiting, you have chest pains, you pass out, you feel lightheaded or if any new concerning symptom develops. Thank you - Post Discharge Activity
[2018-02-02] MEDS ORDERED: ACETAMINOPHEN 325 MG TABLET (FP) ONE (09:18)
[2018-02-02 09:46] LABS: EOS % 2.6 % (0-4.5); HEMATOCRIT 29.7 % (35.4-49); HEMOGLOBIN 9.3 GM/dL (11.7-16.9); MCH 30.1 pg (25.7-33.7); MCHC 31.5 g/dl (32.0-35.9); MEAN CELL VOLUME 95.8 fl (80-96); MONO % 5.6 % (3.8-10.2); NEUT % 82.8 % (42.8-82.8); PLATELET COUNT 211 K/MM3 (134-434); RDW 16.2 % (11.9-15.9); WHITE BLOOD COUNT 7.9 K/mm3 (4.0-10.0)
[2018-02-02] MEDS ORDERED: traMADol HCL 50 MG TABLET PO ONE (09:58)
[2018-02-02] MEDS ORDERED: traMADol HCL 50 MG TABLET ONE (10:04)
[2018-02-02 10:17] LABS: ALBUMIN 3.3 g/dl (3.4-5.0); ALK PHOS 673 U/L (45-117); ANION GAP 9 MMOL/L (8-16); BILIRUBIN,TOTAL 0.2 mg/dL (0.2-1); CALCIUM 7.3 mg/dL (8.5-10.1); CHLORIDE 102 mmol/L (98-107); CO2 20 mmol/L (21-32); MAGNESIUM 2.5 mg/dL (1.8-2.4); POTASSIUM 5.5 mmol/L (3.5-5.1); SGOT/AST 6 U/L (15-37); SGPT/ALT 10 U/L (13-61); SODIUM 131 mmol/L (136-145); TOT PROT 7.4 g/dl (6.4-8.2)
[2018-02-02 10:24] LABS: GLUCOSE,RANDOM 357 mg/dL (74-106)
[2018-02-02 10:25] LABS: BLOOD UREA NITROGEN 112 mg/dL (7-18); CREATININE 9.5 mg/dL (0.55-1.3)
--- NOTE | 2018-02-02 10:29 | PDOC ---
Attending Attestation - Resident Resident Name: Lena Marcus - ED Attending Attestation I have performed the following: I have examined & evaluated the patient, The case was reviewed & discussed with the resident, I agree w/resident's findings & plan - HPI HPI: 02/02/18 10:26 52-year-old male history of end-stage renal disease on dialysis Thursday/ /Thursday, scheduled for 11 AM dialysis today presents for episode of epistaxis overnight. Patient began having right naris epistaxis since around 11 PM, intermittently controlled with pressure and prompting a cough when the blood was in the back of his throat. Bleeding is currently controlled and has been stopped for about 1 hour, but he presents for evaluation. No difficulty breathing, no new cough or shortness of breath or new chest pain. Patient note of body aches is also noted, reports bilateral elbow and knee pain for the last few days typical of his arthritis, denies any other infectious symptoms, denies any fevers or chills. No lightheadedness or near syncope, review of systems is otherwise negative. - Physicial Exam PE: 02/02/18 10:27 Vital signs normal, heart rate 80 on my examination Well-formed small clot on the septal aspect of the right naris, oropharynx clear without swelling, no stridor, speech clear No evidence of joint effusion or infection, full range of motion with full strength, neurovascularly intact throughout - Medical Decision Making 02/02/18 10:28 52-year-old male presents with epistaxis intermittently since last night, now resolved and hemodynamically stable without airway compromise. The cough was reactive to be epistaxis and there are no signs or symptoms of other infectious etiology. The body aches are very localized to the elbow and knee joints and her typical of his arthritis exacerbations, for which she takes tramadol but ran out of his prescription. Labs sent We will prescribe tramadol for his arthritis flare He can proceed directly to dialysis from here, understands return criteria 02/02/18 10:30 hgb 9.3, slightly better than baseline. expected chem abnormalities, proceeding to dialysis. Heart Score/ECG Review #1 ECG reviewed & interpreted by me at: 09:23 General ECG Interpretation: Sinus Rhythm, Normal Rate (97), Normal Intervals ( qtc prolonged at 497 (chronic), no hyperacute t waves, qrs 88), No acute ischemic changes (TWI I/AVL) Compared to previous ECG there are: No significant change (10/30/17)
[2018-02-02 10:55] VITALS: BP 175/104; PULSE 95
--- NOTE | 2018-02-02 12:55 | EKG ---
Test Reason : Blood Pressure : / mmHG Vent. Rate : 097 BPM Atrial Rate : 097 BPM P-R Int : 182 ms QRS Dur : 088 ms QT Int : 392 ms P-R-T Axes : 064 -03 088 degrees QTc Int : 497 ms NORMAL SINUS RHYTHM POSSIBLE LEFT ATRIAL ENLARGEMENT SEPTAL INFARCT (CITED ON OR BEFORE 13-DEC-2009) ABNORMAL ECG WHEN COMPARED WITH ECG OF 30-OCT-2017 13:14, QUESTIONABLE CHANGE IN QRS AXIS Confirmed by Shiv London ([id number]) on 02/02/2018 12:55:33 PM Referred By: Confirmed By:Shiv London
== END 2018-02-02 10:55 | disposition home or self-care (01) ==
LOC: JER 08:19
DX: R04.0 Epistaxis (principal); E11.22 Type 2 diabetes mellitus with diabetic chronic kidney disease; I12.0 Hypertensive chronic kidney disease with stage 5 chronic kidney disease or end stage renal disease; N18.6 End stage renal disease; Z99.2 Dependence on renal dialysis; I50.9 Heart failure, unspecified
CPT/HCPCS: 36415; 80053; 83735; 84484; 85025; 93005; 93010; 99283-25

== ENCOUNTER 2018-02-19 11:51 | Inpatient (IN) | payer OTHER ==
[2018-02-19 12:06] VITALS: BMI 33.2
--- NOTE | 2018-02-19 13:03 | PDOC ---
History of Present Illness - General Chief Complaint: Wound Stated Complaint: PCP REFERRED Time Seen by Provider: 02/19/18 12:18 History Source: Patient Exam Limitations: No Limitations - History of Present Illness Initial Comments: 02/19/18 13:03 Pt. is a 52 y.o. M w/ PMHx. including but not exclusive to of DM, [place] s/p CABG and stent placement (2010), CAD, ESRD on HD(,,Thu), CHF, and Gout presents from HD clinic, referred by Dr. Dunbar (PCP) for wound infection. The infected site was first noticed on Thursday. Pt. underwent HD on around the site but not through the infected area and was given Vancomycin and Ceftazidime. Pt. endorses some SOB today and some intermittent nausea since yesterday. Pt. denies fever, chill, nausea or constipation. Pt. is anuric/ oliguric but denies any burning or pain at the level of the penis. Pt. denies CVA tenderness. Pt. denies any lightheadedness, dizziness, change in appetite or any other symptoms at this time. Pt. has history of MRSA positive wound infection. CBC, CMP, PT/INR, Mag, Phos, BCx, Wound Cx, CXR and LA were ordered. Consult placed to Dr. Mccauley per instructions by Dr. Hurley. Pt. will be admitted under Dr. Dunbar. 02/19/18 15:12 Pt. left for surgery for placement of Permacath. 02/19/18 16:06 Timing/Duration: changing over time Severity: mild Past History - Past Medical History Allergies/Adverse Reactions: Allergies Allergy/AdvReac Type Severity Reaction Status Date / Time No Known Drug Allergies Allergy Verified 02/19/18 12:06 Home Medications: Ambulatory Orders Allopurinol [Zyloprim -] 100 mg PO DAILY 11/28/16 Atorvastatin Ca [Lipitor] 80 mg PO HS 11/28/16 Cinacalcet HCl [Sensipar] 30 mg PO DAILY 11/28/16 Ferrous Sulfate 325 mg PO DAILY 11/28/16 Furosemide [Lasix] 80 mg PO DAILY 11/28/16 Hydralazine HCl 50 mg PO TID 11/28/16 Lisinopril 5 mg PO DAILY 11/28/16 Omeprazole 20 mg PO DAILY 11/28/16 Sevelamer Carbonate [Renvela -] 800 mg NR TID 11/28/16 Aspirin [Jeremiah Chewable Aspirin] 81 mg PO DAILY 10/26/17 Cetirizine HCl 10 mg PO DAILY 10/26/17 Insulin Detemir [Levemir Flextouch] 15 units SQ HS 10/26/17 Acetaminophen W/ Codeine #3 [Tylenol # 3 -] 1 tab PO Q12H PRN tablet MDD 2 09/09 Albuterol 2.5/Ipratropium 0.5 [Duoneb -] 1 amp NEB Q6H PRN amp 10/30/17 Bimatoprost [Lumigan] 1 drop OS HS 02/02/18 Brimonidine Tartrate [Alphagan 0.15% -] 1 drop OS TID 02/02/18 Indomethacin 50 mg PO BID 02/02/18 Insulin Aspart [Novolog] 8 unit SQ AC 02/02/18 Magnesium Oxide [Magnesium] 400 mg PO TID 02/02/18 Tramadol HCl/Acetaminophen [Tramadol-Acetaminophn 37.5-325] 1 each PO BID Anemia: Yes Asthma: No Cancer: No Cardiac Disorders: Yes ("silent [place]" CABG x 2 vessels 05/24/2010) CVA: No COPD: No CHF: Yes DVT: No Dementia: No Diabetes: Yes Dialysis: Yes (,,) GI Disorders: Yes (GERD) Disorders: No HTN: Yes Hypercholesterolemia: Yes Liver Disease: No Seizures: No Thyroid Disease: No - Surgical History Abdominal Surgery: No Appendectomy: No Cardiac Surgery: Yes (CABG 05/2010, cardiac stent may 2013) Cholecystectomy: No Lung Surgery: No Orthopedic Surgery: Yes (transmet amp L foot) - Family Disease History Family Disease History: Diabetes: Mother, Heart Disease: Father - Immunization History Immunization Up to Date: Yes - Suicide/Smoking/Psychosocial Hx Smoking Status: No Smoking History: Unknown if ever smoked Years of Tobacco Use: 0 Have you smoked in the past 12 months: No Number of Cigarettes Smoked Daily: 2 If you are a former smoker, when did you quit?: 1990 Cigars Per Day: 0 'Breaking Loose' booklet given: 06/04/12 Hx Alcohol Use: No Drug/Substance Use Hx: No Substance Use Type: None Hx Substance Use Treatment: No *Physical Exam - Vital Signs Last Vital Signs Temp Pulse Resp BP Pulse Ox 98.3 F 91 H 20 140/65 97 02/19/18 12:05 02/19/18 12:05 02/19/18 12:05 02/19/18 12:05 02/19/18 12:05 - Physical Exam General Appearance: Yes: Nourished, Appropriately Dressed, Obese. No: Apparent Distress HEENT: positive: Normal Voice, Symmetrical Neck: positive: Supple Respiratory/Chest: positive: Decreased Breath Sounds (bibasilarly ). negative: Accessory Muscle Use, Crackles, Rales, Wheezing Cardiovascular: positive: Regular Rhythm, Regular Rate, S1, S2. negative: Edema , JVD, Murmur Vascular Pulses: Dorsalis-Pedis (R): 2+, Doralis-Pedis (L): 2+ Gastrointestinal/Abdominal: positive: Normal Bowel Sounds, Soft, Protuberent, Hernia. negative: Tender, Guarding, Rebound, Tenderness Rectal Exam: positive: deferred Moderate Sedation - Procedure Monitoring Vital Signs: Procedure Monitoring Vital Signs Temperature 98.3 F 02/19/18 12:05 Pulse Rate 91 H 02/19/18 12:05 Respiratory Rate 20 02/19/18 12:05 Blood Pressure 140/65 02/19/18 12:05 O2 Sat by Pulse Oximetry (%) 97 02/19/18 12:05 ED Treatment Course - LABORATORY CBC & Chemistry Diagram: 02/19/18 14:00 02/19/18 14:00 *DC/Admit/Observation/Transfer Diagnosis at time of Disposition: ESRD (end stage renal disease) on dialysis, Wound infection, DM (diabetes mellitus), type 2 with renal complications - Discharge Dispostion Decision to Admit order: Yes - Referrals - Patient Instructions - Post Discharge Activity
--- NOTE | 2018-02-19 13:12 | CONSULT ---
Consult - text type - Consultation Consultation Note: Renal Consult for ESRD on HD with AVF ulceration This is a 52 year old gentleman with hx of ESRD on HD, DM, Hypertension, CHF, CAD who was asked to come to the ER by me for evaluation of suspected soft tissue infection over his AVF site. Pt reports seeing puss coming from the skin over his AVF site on Thursday and it was once again noted by the outpatient dialysis staff on . He denies any fever or chills. Has some soreness over his arm. s/p HD yesterday but he was canulated away from the ulceration site. PMhx: as above Allergies: NKDA Family Hx: NC Social Hx: No T/A/D ROS: as per HPI, all other pertinent ros negative Home Medications Medication Instructions Recorded Allopurinol [Zyloprim -] 100 mg PO DAILY 11/28/16 Atorvastatin Ca [Lipitor] 80 mg PO HS 11/28/16 Cinacalcet HCl [Sensipar] 30 mg PO DAILY 11/28/16 Ferrous Sulfate 325 mg PO DAILY 11/28/16 Furosemide [Lasix] 80 mg PO DAILY 11/28/16 Hydralazine HCl 50 mg PO TID 11/28/16 Lisinopril 5 mg PO DAILY 11/28/16 Omeprazole 20 mg PO DAILY 11/28/16 Sevelamer Carbonate [Renvela -] 800 mg NR TID 11/28/16 Aspirin [Jeremiah Chewable Aspirin] 81 mg PO DAILY 10/26/17 Cetirizine HCl 10 mg PO DAILY 10/26/17 Insulin Detemir [Levemir Flextouch] 15 units SQ HS 10/26/17 Acetaminophen W/ Codeine #3 1 tab PO Q12H PRN tablet MDD 2 10/30/17 [Tylenol # 3 -] Albuterol 2.5/Ipratropium 0.5 1 amp NEB Q6H PRN amp 10/30/17 [Duoneb -] Bimatoprost [Lumigan] 1 drop OS HS 02/02/18 Brimonidine Tartrate [Alphagan 1 drop OS TID 02/02/18 0.15% -] Indomethacin 50 mg PO BID 02/02/18 Insulin Aspart [Novolog] 8 unit SQ AC 02/02/18 Magnesium Oxide [Magnesium] 400 mg PO TID 02/02/18 Tramadol HCl/Acetaminophen 1 each PO BID 02/02/18 [Tramadol-Acetaminophn 37.5-325] Vital Signs Temperature 98.3 F 02/19/18 12:05 Pulse Rate 91 H 02/19/18 12:05 Respiratory Rate 20 02/19/18 12:05 Blood Pressure 140/65 02/19/18 12:05 O2 Sat by Pulse Oximetry (%) 97 02/19/18 12:05 NAD awake and alert neck supple, no JVD RRR, no M/R CTA, no rales or wheeze soft NT/ND no LE edema bandage over avf site, has skin opening with some white discharge. No erythema over the rest of the access site. labs pending 52 year old gentleman with hx of ESRD on HD, DM, Hypertension, CHF, CAD who was asked to come to the ER by me for evaluation of suspected soft tissue infection over his AVF site. #Soft tissue infection over AVF site r/o sepsis #ESRD on HD #Hypertension #DM Case discussed with Dr. Brando Mccauley who will see patient to evaluate access site pt possible may need a temporary Hd catheter if it is deemed dangerous to canulate the AVF site for the time being s/p Fortaz 2g IV and Vancomycin 1g IV yesterday after dialysis Blood and wound cultures were collected at dialysis yesterday would draw CBC, CMP and blood cultures in ER pt does not show signs of systemic infection no acute need for [employer] today check FS, may need some slow IVF with dextrose in it if pt is to be NPO for a prolonged period of time Discharge planning based on Vascular intervention Thank you Antwan Hurley DO
--- NOTE | 2018-02-19 13:14 | PDOC ---
Attending Attestation - Resident Resident Name: ОлегAnthony - ED Attending Attestation I have performed the following: I have examined & evaluated the patient, The case was reviewed & discussed with the resident, I agree w/resident's findings & plan, Exceptions are as noted - HPI HPI: 02/19/18 13:14 Reviewed Residents PE - Physicial Exam PE: 02/19/18 13:13 Vitals: Triage Vital signs reviewed General Appearance: no acute distress, well nourished well developed, Neck: Supple;No Nucal rigidity Chest Wall: Nontender Cardiac: Regular rate and rhythymLungs: Clear to auscultation bilateral, good air movement bilaterally, Abdomen: Soft, non distended, normal bowel sounds, non tender to palpation Extremities: Left AV fistula to bicep with 4 cm x 4 cm ulcerated area of infection with purulent discharge. Skin: Warm and dry, no rashes or lesions, no rash, no petechiae Psych: normal mood, normal affect - Medical Decision Making 02/19/18 13:13 Ulcerative an infected left arm fistula with purulent discharge Will require admission for IV antibiotics and vascular surgery consult as the site may not be amenable to further dialysis Patient ready received vancomycin we'll continue antibiotic coverage as prescribed and admit for further management.
[2018-02-19 14:11] LABS: BASO % 0.8 % (0-2.0); HEMATOCRIT 27.6 % (35.4-49); HEMOGLOBIN 9.6 GM/dL (11.7-16.9); LYMPH % 11.4 % (8-40); MCHC 34.7 g/dl (32.0-35.9); MEAN CELL VOLUME 92.3 fl (80-96); MEAN PLT VOLUME 8.5 fl (7.5-11.1); MONO % 7.5 % (3.8-10.2); NEUT % 76.3 % (42.8-82.8); PLATELET COUNT 253 K/MM3 (134-434); RBC 2.99 M/mm3 (4.00-5.60); RDW 16.3 % (11.9-15.9); WHITE BLOOD COUNT 6.2 K/mm3 (4.0-10.0)
[2018-02-19 14:25] LABS: INR 1.13 (0.83-1.09); PROTHROMBIN TIME (PATIENT) 13.3 SEC (9.7-13.0)
[2018-02-19] MEDS ORDERED: PROPOFOL 20 ML ONE (14:53)
[2018-02-19] MEDS ORDERED: LIDOCAINE HCL/PF 2% SDV 5ML VIAL ONE (14:53)
[2018-02-19] MEDS ORDERED: MIDAZOLAM HCL 2 MG/2 ML SINGLE DOSE VIAL ONE (14:53)
[2018-02-19 14:59] LABS: ALK PHOS 645 U/L (45-117); ANION GAP 12 MMOL/L (8-16); BILIRUBIN,TOTAL 0.3 mg/dL (0.2-1); BLOOD UREA NITROGEN 72 mg/dL (7-18); CALCIUM 7.7 mg/dL (8.5-10.1); CHLORIDE 99 mmol/L (98-107); CO2 23 mmol/L (21-32); GLUCOSE,RANDOM 297 mg/dL (74-106); MAGNESIUM 2.3 mg/dL (1.8-2.4); PHOSPHOROUS 7.8 mg/dL (2.5-4.9); POTASSIUM 5.3 mmol/L (3.5-5.1); SGOT/AST 15 U/L (15-37); SGPT/ALT 9 U/L (13-61); SODIUM 134 mmol/L (136-145); TOT PROT 7.6 g/dl (6.4-8.2)
[2018-02-19 15:03] LABS: CREATININE 7.8 mg/dL (0.55-1.3)
[2018-02-19] MEDS ORDERED: ceFAZolin SODIUM 1 GM VIAL IVPB ONE (15:11)
[2018-02-19] MEDS ORDERED: LIDOCAINE HCL 1%, 10 MG/ML (50 mL VIAL) IJ ONE ×2 (15:18)
[2018-02-19] MEDS ORDERED: ONDANSETRON 4 MG/2 ML VIAL IVPUSH PRN ×2 (16:27→16:36)
[2018-02-19] MEDS ORDERED: SODIUM CHLORIDE 1,000 ML IV SCH ×2 (16:30→16:45)
--- NOTE | 2018-02-19 16:32 | OP ---
Operative Note - Note: Operative Date: 02/19/18 Pre-Operative Diagnosis: ESRD, ulcer left avf Operation: Insertion of permacath Post-Operative Diagnosis: Same as Pre-op Surgeon: Vel Mccauley Anesthesia: Fractional Estimated Blood Loss (mls): 50 Operative Report Dictated: Yes
--- NOTE | 2018-02-19 16:35 | PN ---
Progress Note (short form) - Note Progress Note: VAscular surgery S/P permacath. Pt has left avf with ulcer in upper arm at pseudoaneurysm site. Permacath placed to give left arm a rest. Pt to see Dr. Bhatti as outpt for intervention of left avf. Pt is cleared for DC Vel Mccauley DO
[2018-02-19 17:53] VITALS: BP 144/80; PULSE 76
[2018-02-19 17:54] VITALS: TEMP 98.5
--- NOTE | 2018-02-19 23:41 | OP ---
DATE OF OPERATION: 02/19/2018 PREOPERATIVE DIAGNOSES: End-stage renal disease, left arteriovenous fistula ulcer. POSTOPERATIVE DIAGNOSES: End-stage renal disease, left arteriovenous fistula ulcer. PROCEDURE: Insertion of PermCath. SURGEON: Vel Dean DO ANESTHESIA: Fractional. BLOOD LOSS: 50 mL The patient is a 52-year-old male who comes in from the dialysis unit because his chiropractor assistant sent him in because he had this left upper extremity AV fistula ulcer. He had pseudoaneurysm that is excoriated and now open. It was decided that his chiropractor assistant wanted a permacatheter inserted so that the left arm can be given some rest. Patient is Dr. Bhatti's patient. Dr. Bhatti is away currently, and thus, we are seeing the patient. Patient was seen and examined. There is a pseudoaneurysm that is open and excoriated in the left upper extremity AV fistula. The fistula has a good bruit and thrill. It was decided that patient would need a PermCath. Patient was consented for the procedure, understanding all risks, benefits, and alternatives and was then taken to the operating room. Once in the operating room, he was laid on the operating table in supine manner, and the area of the right neck and chest were prepped and draped in a sterile surgical manner. We then injected 10 mL of lidocaine 1% over the right internal jugular vein. We then took our micropuncture needle and punctured the right internal jugular vein. Micropuncture wire was inserted. Micropuncture sheath was inserted. A 0.035 floppy guidewire was inserted. We then injected 10 mL of lidocaine 1% above and below the clavicle. We then took an 11 blade and made a 1-cm incision at the puncture site. We then took a 15 blade and made a 1-cm incision below the clavicle. We then tunneled our PermCath up to the puncture site. We then took our breakaway sheath and placed it over the guidewire into the vein under fluoroscopy, and the cannula and guidewire were removed. Catheter was placed inside the sheath. Sheath was broken away as the catheter was placed inside the vein. Neck of the catheter was nice and smooth. Tip of the catheter was located outside the right atrium. We then sean back on each port, and there was good flow. Heparinized saline was injected, 2000 units of IV heparin were injected into each port. A 4-0 Biosyn was used, and 2 simple sutures were placed at the puncture site, 3-0 nylon used on the catheter site to the skin. Biopatch, Steri-Strips, 4 x 4 Tegaderm were placed. The patient tolerated the procedure with no complication and patient transferred to PACU in stable condition. VEL DEAN DO [id number]
--- NOTE | 2018-02-24 15:53 | OP ---
DATE OF OPERATION: 02/19/2018 PREOPERATIVE DIAGNOSES: End-stage renal disease, infected left arteriovenous fistula and ulcer. POSTOPERATIVE DIAGNOSES: End-stage renal disease, infected left arteriovenous fistula and ulcer. PROCEDURE: Insertion of PermCath. SURGEON: Vel Dean DO ANESTHESIA: Fractional. BLOOD LOSS: 20 mL. INDICATIONS: The patient is a 52-year-old male that comes in with a left AV fistula that has an ulcer on it that seems infected and cannot be used anymore. Patient needs a temporary PermCath to be placed so that the left arm can get some rest. DESCRIPTION: The patient was consented for the procedure, understanding all risks, benefits, and alternatives, was then taken to the operating room. Once in the operating room, he was laid on the operating table in supine manner, and the area of the right neck and chest were prepped and draped in sterile surgical manner. Then 10 mL lidocaine 1% as injected under ultrasound guidance over the right internal jugular vein. We then took our micropuncture needle and punctured the right internal jugular vein under ultrasound guidance. Micropuncture dart was inserted, micropuncture sheath was inserted, and a 0.035 floppy guidewire was inserted under fluoroscopy. We then went ahead and injected 10 mL lidocaine 1% above and below the clavicle. We then took a 15-blade and made a 1-cm incision below the clavicle. We took an 11 blade and made a 1-cm incision at the puncture site. We then tunneled the PermCath up to the puncture site. We then placed a breakaway sheath over the guidewire into the vein under fluoroscopy, and the cannula and guidewire were removed. Catheter was placed inside the sheath, sheath was broken away, and catheter was placed inside the vein. Neck of the catheter was nice and smooth. The tip of the catheter was located outside the right atrium. We then sean back on each port of the catheter, and there was good flow. Heparinized saline was injected, 2000 units of IV heparin was injected into each port. A 4-0 Biosyn was used and 2 simple stitches were placed at puncture site, 3-0 nylon and the catheter was attached to the skin. BioPatch, Steri-Strips, 4x4, Tegaderm were placed. Patient tolerated the procedure with no complication. Patient transferred to PACU in stable condition, where a chest x-ray will be obtained. VEL DEAN DO [id number]
== END 2018-02-19 18:20 | disposition home or self-care (01) | DRG 314 ==
LOC: JER 11:51 → JERBED 13:15
PROVIDERS: ADMIT Specialist; ATTEND Specialist
PROC: B543ZZA Ultrasonography of Right Jugular Veins, Guidance (ICD-10-PCS; 2018-02-19)
PROC: 05HM33Z Insertion of Infusion Device into Right Internal Jugular Vein, Percutaneous Approach (ICD-10-PCS; principal; 2018-02-19 15:00)
DX: T82.7XXA Infection and inflammatory reaction due to other cardiac and vascular devices, implants and grafts, initial encounter (principal); N18.6 End stage renal disease; L98.498 Non-pressure chronic ulcer of skin of other sites with other specified severity; I12.0 Hypertensive chronic kidney disease with stage 5 chronic kidney disease or end stage renal disease; E11.22 Type 2 diabetes mellitus with diabetic chronic kidney disease; I25.10 Atherosclerotic heart disease of native coronary artery without angina pectoris; M10.9 Gout, unspecified; K21.9 Gastro-esophageal reflux disease without esophagitis; I25.2 Old myocardial infarction; E78.00 Pure hypercholesterolemia, unspecified; Z95.5 Presence of coronary angioplasty implant and graft; Z99.2 Dependence on renal dialysis; Z95.1 Presence of aortocoronary bypass graft
CPT/HCPCS: 36415; 71045-TC-FY; 76000-TC-FY; 80053; 83605; 83735; 84100; 85025; 85610; 87040; 87070; 87186; 87205; 94760; 99282-25; J1644

== ENCOUNTER 2018-03-05 20:03 | Inpatient (IN) | payer OTHER ==
--- NOTE | 2018-03-05 20:09 | PDOC ---
Rapid Medical Evaluation Time Seen by Provider: 03/05/18 20:08 Medical Evaluation: Allergies Allergy/AdvReac Type Severity Reaction Status Date / Time No Known Drug Allergies Allergy Verified 02/19/18 12:06 03/05/18 20:08 Pt c/o: cough w/wheezing x 1 week, chest soreness, esrd, last hd 03/04 Pt on brief exam: vss, noted mild exp wheeze [place] Pt ordered for: douneb, cxr pt to proceed to the ED Discharge Disposition - Diagnosis Cough - Referrals Referrals: Paulo Dunbar MD [Primary Care Provider] - - Patient Instructions - Post Discharge Activity
[2018-03-05 20:10] VITALS: BMI 31.9
[2018-03-05] MEDS ORDERED: ALBUTEROL SO4 2.5/IPRATROPIUM 0.5 INH SOL 3 ML VIAL.NEB. NEB ONE ×2 (20:11→23:14)
--- NOTE | 2018-03-05 20:42 | PDOC ---
History of Present Illness - General Chief Complaint: Shortness of Breath Stated Complaint: [id number] Time Seen by Provider: 03/05/18 20:08 - History of Present Illness Initial Comments: 52yo M with PMH of ESRD on HD (Tu[facility]Sat) with recent LUE fistula revision on Thursday, CAD s/p CABG and stent, CHF, Asthma presenting with non-productive cough , shortness of breath, chest pain, abdominal pain. Patient endorses a nonproductive cough for the past week that has worsened. He has dyspnea with exertion, not being able to walk across the room without feeling short of breath. Patient reports feeling generalized weakness and muscle aches. He also endorses non-radiating substernal chest pain that he attributes to his frequent coughing. One episode of NBNB vomiting this morning. Patient attributes his abdominal pain to coughing. Bowel movement today was a normal formed brown stool without blood. Patient had a LUE fistula repair on Thursday performed by Dr. Bhatti. He reports having a fever of 101 on , but has not had one in the last couple days. Finished dialysis session yesterday without any difficulties. His at the bedside reports that he was hospitalized and intubated for a pneumonia in 2015. Past History - Past Medical History Allergies/Adverse Reactions: Allergies Allergy/AdvReac Type Severity Reaction Status Date / Time No Known Drug Allergies Allergy Verified 03/05/18 20:10 Home Medications: Ambulatory Orders Allopurinol [Zyloprim -] 100 mg PO DAILY 11/28/16 Atorvastatin Ca [Lipitor] 80 mg PO HS 11/28/16 Cinacalcet HCl [Sensipar] 30 mg PO DAILY 11/28/16 Ferrous Sulfate 325 mg PO DAILY 11/28/16 Furosemide [Lasix] 80 mg PO DAILY 11/28/16 Hydralazine HCl 50 mg PO TID 11/28/16 Lisinopril 5 mg PO DAILY 11/28/16 Omeprazole 20 mg PO DAILY 11/28/16 Sevelamer Carbonate [Renvela -] 800 mg NR TID 11/28/16 Aspirin [Jeremiah Chewable Aspirin] 81 mg PO DAILY 10/26/17 Cetirizine HCl 10 mg PO DAILY 10/26/17 Insulin Detemir [Levemir Flextouch] 15 units SQ HS 10/26/17 Acetaminophen W/ Codeine #3 [Tylenol # 3 -] 1 tab PO Q12H PRN tablet MDD 2 09/09 Albuterol 2.5/Ipratropium 0.5 [Duoneb -] 1 amp NEB Q6H PRN amp 10/30/17 Bimatoprost [Lumigan] 1 drop OS HS 02/02/18 Brimonidine Tartrate [Alphagan 0.15% -] 1 drop OS TID 02/02/18 Indomethacin 50 mg PO BID 02/02/18 Insulin Aspart [Novolog] 8 unit SQ AC 02/02/18 Magnesium Oxide [Magnesium] 400 mg PO TID 02/02/18 Tramadol HCl/Acetaminophen [Tramadol-Acetaminophn 37.5-325] 1 each PO BID Anemia: Yes Asthma: No Cancer: No Cardiac Disorders: Yes ("silent [place]" CABG x 2 vessels 05/24/2010) CVA: No COPD: No CHF: Yes DVT: No Dementia: No Diabetes: Yes Dialysis: Yes (,,) GI Disorders: Yes (GERD) Disorders: No HTN: Yes Hypercholesterolemia: Yes Liver Disease: No Seizures: No Thyroid Disease: No - Surgical History Abdominal Surgery: No Appendectomy: No Cardiac Surgery: Yes (CABG 05/2010, cardiac stent may 2013) Cholecystectomy: No Lung Surgery: No Orthopedic Surgery: Yes (transmet amp L foot) - Family Disease History Family Disease History: Diabetes: Mother, Heart Disease: Father - Immunization History Immunization Up to Date: Yes - Suicide/Smoking/Psychosocial Hx Smoking Status: No Smoking History: Never smoked Years of Tobacco Use: 0 Have you smoked in the past 12 months: No Number of Cigarettes Smoked Daily: 2 If you are a former smoker, when did you quit?: 1990 Cigars Per Day: 0 'Breaking Loose' booklet given: 06/04/12 Hx Alcohol Use: No Drug/Substance Use Hx: No Substance Use Type: None Hx Substance Use Treatment: No Review of Systems - Review of Systems Comments:: Constitutional: +fever, no chills HEENT: no throat pain, no dysphagia Cardiovascular: +chest pain, no palpitations Respiratory: +cough, +shortness of breath Gastrointestinal: +abdominal pain, +nausea, +vomiting Genitourinary: no dysuria, no frequency Musculoskeletal: +myalgia, no arthralgia Skin: no rash, no itching Neurologic: no headache, no dizziness *Physical Exam - Vital Signs Last Vital Signs Temp Pulse Resp BP Pulse Ox 98.3 F 99 H 22 H 145/70 99 03/05/18 20:08 03/05/18 20:08 03/05/18 20:08 03/05/18 20:08 03/05/18 20:08 - Physical Exam Comments: General: Awake, alert, and fully oriented, in no acute distress Head: No signs of trauma Eyes: EOMI, sclera anicteric ENT: Dry mucus membranes Neck: Normal ROM, supple Lungs: Diffuse expiratory rhonchi that cleared with coughing, decreased breath sounds on left base Cardio: Regular rhythm, S1 and S2 present; tender to palpation in midsternal area Abdomen: Soft, nontender. No guarding, no rebound, no masses Extremities: Normal range of motion, Distal pulses present SKIN: Warm, Dry, normal turgor Neurologic: Cranial nerves II through XII grossly intact. Normal speech Moderate Sedation - Procedure Monitoring Vital Signs: Procedure Monitoring Vital Signs Temperature 98.3 F 03/05/18 20:08 Pulse Rate 99 H 03/05/18 20:08 Respiratory Rate 22 H 03/05/18 20:08 Blood Pressure 145/70 03/05/18 20:08 O2 Sat by Pulse Oximetry (%) 99 03/05/18 20:08 ED Treatment Course - LABORATORY CBC & Chemistry Diagram: 03/05/18 21:26 03/05/18 21:26 - Medications Given in the ED: ED Medications Discontinued Medications Generic Name Dose Route Start Last Admin Trade Name Freq PRN Reason Stop Dose Admin Albuterol/Ipratropium 1 amp 03/05/18 20:11 03/05/18 20:24 Duoneb - NEB 03/05/18 20:12 1 amp ONCE ONE Administration Medical Decision Making - Medical Decision Making 52yo M with PMH of ESRD on HD ([facility]) with recent LUE fistula revision on Thursday, CAD s/p CABG and stent, CHF, Asthma presenting with non-productive cough , shortness of breath, chest pain, abdominal pain. -DDX includes but not limited to asthma exacerbation, CHF exacerbation, viral illness, ACS, pneumonia -EKG: rate 93, QTc 489, NSR -CXR: indeterminate (my impression) -Labs 03/05/18 21:56 Patient endorsing worsening chest pain rated 10/10 that he describes as sharp. Lung exam now with diffuse expiratory wheezes. Ordered repeat EKG Plan to admit for r/o ACS 03/05/18 23:56 Tpn negative BNP elevated 6662, No leukocytosis, Hgb 9.0 close to patient's baseline. K=4.4, electrolytes at baseline. Flu negative 03/06/18 00:[address] Paulo Dunbar who accepted patient for admission *DC/Admit/Observation/Transfer Diagnosis at time of Disposition: Cough, Chest pain, Asthma, CHF exacerbation - Discharge Dispostion Condition at time of disposition: Guarded Decision to Admit order: Yes - Referrals - Patient Instructions - Post Discharge Activity
[2018-03-05] MEDS ORDERED: ACETAMINOPHEN 1000 MG/100 ML VIAL (NON FORMULARY) IVPB ONE (21:15)
[2018-03-05] MEDS ORDERED: ACETAMINOPHEN INJECTION 100 ML IVPB ONE (22:00)
[2018-03-05 22:03] LABS: EOS % 4.2 % (0-4.5); HEMATOCRIT 26.9 % (35.4-49); LYMPH % 11.6 % (8-40); MCH 31.3 pg (25.7-33.7); MCHC 33.3 g/dl (32.0-35.9); MEAN CELL VOLUME 94.1 fl (80-96); MEAN PLT VOLUME 8.5 fl (7.5-11.1); MONO % 7.2 % (3.8-10.2); PLATELET COUNT 245 K/MM3 (134-434); RBC 2.86 M/mm3 (4.00-5.60); RDW 16.7 % (11.9-15.9)
[2018-03-05 22:37] LABS: ALBUMIN 3.1 g/dl (3.4-5.0); ALK PHOS 572 U/L (45-117); ANION GAP 11 MMOL/L (8-16); BILIRUBIN,TOTAL 0.3 mg/dL (0.2-1); BLOOD UREA NITROGEN 42 mg/dL (7-18); CALCIUM 7.2 mg/dL (8.5-10.1); CHLORIDE 103 mmol/L (98-107); CO2 21 mmol/L (21-32); CREATININE 7.2 mg/dL (0.55-1.3); GLUCOSE,RANDOM 298 mg/dL (74-106); LIPASE 152 U/L (73-393); N-TERMINAL BNP 6662.5 pg/ml (5-125); POTASSIUM 4.4 mmol/L (3.5-5.1); SGOT/AST 10 U/L (15-37); SGPT/ALT 7 U/L (13-61); SODIUM 135 mmol/L (136-145); TOT PROT 7.6 g/dl (6.4-8.2)
[2018-03-05] MEDS ORDERED: morphine CARPU-JECT 2 MG/1 ML DISP.SYRIN IVPUSH ONE (23:16)
--- NOTE | 2018-03-05 23:37 | PDOC ---
Attending Attestation - Resident Resident Name: Ashley Escobedo - ED Attending Attestation I have performed the following: I have examined & evaluated the patient, The case was reviewed & discussed with the resident, I agree w/resident's findings & plan, Exceptions are as noted - HPI HPI: 03/06/18 00:15 The patient is a 52 year old male with a significant past medical history of ESRD on HD ([facility]) with recent LUE fistula revision on Thursday, CAD s/p CABG and stents, CHF, Asthma who presents to the ED with non-productive cough, shortness of breath, chest pain for about a week. He states his cough has been dry and progressing over the week. He states he feel SOB with exertion such that he can not walk across the room without becoming SOB. He reports some associated generalized weakness and body aches. He reports nonradiating, substernal chest pain which is exacerbated with excessive coughing. He also reports abdominal pain which is exacerbated with coughing. He denies the chest pain without coughing. He reportedly had one episode of NBNB vomiting this morning after a coughing episode. NKDA - Physicial Exam PE: 03/06/18 00:16 GENERAL: Awake, alert, and fully oriented, in no acute distress. HEAD: No signs of trauma EYES: PERRLA, EOMI, sclera anicteric, conjunctiva clear ENT: Auricles normal inspection, hearing grossly normal, nares patent, oropharynx clear without exudates. Moist mucosa NECK: Nontender, no stepoffs, Normal ROM, supple, no lymphadenopathy, JVD, or masses LUNGS: + bilateral expiratory wheezing, no rhonchi, no crackles HEART: Regular rate and rhythm, normal S1 and S2, no murmurs, rubs or gallops ABDOMEN: Soft, nontender, normoactive bowel sounds. No guarding, no rebound. No masses EXTREMITIES: Normal range of motion, no edema. No clubbing or cyanosis. No cords, erythema, or tenderness NEUROLOGICAL: Cranial nerves II through XII intact. 5/5 strength and sensation in all extremities, Normal speech, normal gait, normal cerebellar function SKIN: Warm, Dry, normal turgor, no rashes or lesions noted. - Medical Decision Making 03/06/18 00:22 52 M with cough, SOB, chest pain. Mild wheezing on exam. Consider asthma exacerbation. However, pt also with extensive cardiac history. WIll need to evaluate for CHF and ACS. - Labs, trop, BNP - CXR - Nebs
[2018-03-06] MEDS ORDERED: ASPIRIN 325 MG TABLET PO ONE (00:23)
[2018-03-06] MEDS ORDERED: ALBUTEROL SO4 2.5/IPRATROPIUM 0.5 INH SOL 3 ML VIAL.NEB. NEB ONE ×3 (00:39→11:33)
[2018-03-06] MEDS ORDERED: FUROSEMIDE 40 MG/4 ML INJECTABLE VIAL IVPUSH ONE (00:49)
[2018-03-06] MEDS ORDERED: ASPIRIN 325 MG TABLET ONE (00:57)
[2018-03-06] MEDS ORDERED: FUROSEMIDE 40 MG/4 ML INJECTABLE VIAL ONE (00:58)
[2018-03-06] MEDS ORDERED: ACETAMINOPHEN WITH CODEINE 300MG/30MG TABLET PO PRN ×3 (01:24→15:06)
[2018-03-06] MEDS ORDERED: ACETAMINOPHEN 325 MG TABLET (FP) PO PRN (01:35)
[2018-03-06 06:01] LABS: HEMATOCRIT 28.1 % (35.4-49); HEMOGLOBIN 8.7 GM/dL (11.7-16.9); MCH 29.3 pg (25.7-33.7); MCHC 30.9 g/dl (32.0-35.9); MEAN CELL VOLUME 94.8 fl (80-96); MEAN PLT VOLUME 8.5 fl (7.5-11.1); PLATELET COUNT 219 K/MM3 (134-434); RBC 2.96 M/mm3 (4.00-5.60); RDW 16.4 % (11.9-15.9); WHITE BLOOD COUNT 5.1 K/mm3 (4.0-10.0)
--- NOTE | 2018-03-06 06:10 | HP ---
Admitting History and Physical - Primary Care Physician PCP: Paulo Dunbar - Admission Chief Complaint: Cough. SOB. CP History of Present Illness: Pt with known CAD, s/p CABG, CHF, ESRD on HD, s/p left arm fistula repair this past Thursday (at [facility]) developed cough this week that got worse ,associated with sore throat at the beginning; pt also developed SOB and CP associated with cough; his cough is somewhat productive, associated with subjective fever at home. Pt w/o dizziness, palpitations; CP is w/o radiation. Pt received Lasix in ER, breathing and cough improved. History Source: Patient Limitations to Obtaining History: No Limitations - Past Medical History Cardiovascular: Yes: CAD, CHF (normal ejection fraction; poor LV compliance; no valvular abnormalities), HTN, Hyperlipdemia Pulmonary: Yes: Asthma, Pneumonia Gastrointestinal: Yes: GERD, GI Bleed Renal/: Yes: Renal Failure, Hemodialysis (ESRD on HD MWF via L arm AVF) Psych: Yes: Anxiety Musculoskeletal: Yes: Other (left metatarsal amputation) Rheumatology: Yes: Gout Endocrine: Yes: Diabetes Mellitus - Past Surgical History Past Surgical History: Yes: Amputation (Left Transmetatarsal), AV Fistula/Graft (LUE), CABG (05/2010), Stent (s/p cardiac cath with stent placement) - Smoking History Smoking history: Former smoker (4 years, Quit more than 20 years ago) Have you smoked in the past 12 months: No Aproximately how many cigarettes per day: 2 If you are a former smoker, when did you quit?: 1989 - Alcohol/Substance Use Hx Alcohol Use: No History of Substance Use: reports: None - Social History ADL: Independent 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 History of Recent Travel: No Home Medications - Allergies Allergies/Adverse Reactions: Allergies Allergy/AdvReac Type Severity Reaction Status Date / Time No Known Drug Allergies Allergy Verified 03/05/18 20:10 - Home Medications Home Medications: Ambulatory Orders Allopurinol [Zyloprim -] 100 mg PO DAILY 11/28/16 Atorvastatin Ca [Lipitor] 80 mg PO HS 11/28/16 Cinacalcet HCl [Sensipar] 30 mg PO DAILY 11/28/16 Ferrous Sulfate 325 mg PO DAILY 11/28/16 Furosemide [Lasix] 80 mg PO DAILY 11/28/16 Hydralazine HCl 50 mg PO TID 11/28/16 Lisinopril 5 mg PO DAILY 11/28/16 Omeprazole 20 mg PO DAILY 11/28/16 Sevelamer Carbonate [Renvela -] 800 mg NR TID 11/28/16 Aspirin [Jeremiah Chewable Aspirin] 81 mg PO DAILY 10/26/17 Cetirizine HCl 10 mg PO DAILY 10/26/17 Insulin Detemir [Levemir Flextouch] 15 units SQ HS 10/26/17 Acetaminophen W/ Codeine #3 [Tylenol # 3 -] 1 tab PO Q12H PRN tablet MDD 2 09/09 Albuterol 2.5/Ipratropium 0.5 [Duoneb -] 1 amp NEB Q6H PRN amp 10/30/17 Bimatoprost [Lumigan] 1 drop OS HS 02/02/18 Brimonidine Tartrate [Alphagan 0.15% -] 1 drop OS TID 02/02/18 Indomethacin 50 mg PO BID 02/02/18 Insulin Aspart [Novolog] 8 unit SQ AC 02/02/18 Magnesium Oxide [Magnesium] 400 mg PO TID 02/02/18 Tramadol HCl/Acetaminophen [Tramadol-Acetaminophn 37.5-325] 1 each PO BID Family Disease History - Family Disease History Family Disease History: Diabetes: Father, Mother, Other: Father, Mother Review of Systems - Review of Systems Constitutional: denies: Chills, Loss of Appetite, Weakness Eyes: denies: Photophobia, Recent Change in Vision HENT: reports: Throat Pain (with cough). denies: Ear Discharge, Ear Pain, Nasal Congestion Neck: denies: Stiffness, Tenderness Cardiovascular: denies: Edema, Palpitations Respiratory: denies: Exercise Intolerance, Hemoptysis, SOB on Exertion Gastrointestinal: denies: Abdominal Pain, Diarrhea, Nausea, Vomiting Genitourinary: denies: Burning, Dysuria, Hematuria Musculoskeletal: denies: Back Pain, Muscle Pain Integumentary: denies: Bruising Neurological: denies: Change in LOC, Change in Speech, Confusion, Numbness, Weakness Endocrine: denies: Excessive Sweating, Intolerance to Cold Hematology/Lymphatic: denies: Easily Bruised, Excessive Bleeding Psychiatric: denies: Anxiety, Depression Physical Examination Vital Signs: Vital Signs Temperature 98.9 F 03/06/18 05:39 Pulse Rate 96 H 03/06/18 05:39 Respiratory Rate 19 03/06/18 05:39 Blood Pressure 136/76 03/06/18 05:39 O2 Sat by Pulse Oximetry (%) 96 03/06/18 05:39 Constitutional: Yes: No Distress, Calm Eyes: Yes: Conjunctiva Clear, EOM Intact HENT: No: Epistaxis, Rhinnorhea Neck: Yes: Trachea Midline. No: Lymphadenopathy Cardiovascular: Yes: Regular Rate and Rhythm, S1, S2 Respiratory: Yes: Regular, Rhonchi (minimal, scaterred bilat.), Other (crackels at bases) Gastrointestinal: Yes: Normal Bowel Sounds, Soft, Abdomen, Obese. No: Hepatomegaly, Tenderness ...Rectal Exam: Yes: Deferred Renal/: No: CVA Tenderness - Left, CVA Tenderness - Right Musculoskeletal: No: Back Pain, Joint Swelling Edema: No Neurological: Yes: Alert, Oriented, Other (motor and sensory examination is intactin UE/ LE/ face) Psychiatric: Yes: Alert, Oriented Labs: CBC, BMP 03/06/18 05:30 Imaging - Results Chest X-ray: Report Reviewed, Image Reviewed Problem List - Problems (1) CHF exacerbation Code(s): I50.9 - HEART FAILURE, UNSPECIFIED (2) Chest pain Code(s): R07.9 - CHEST PAIN, UNSPECIFIED (3) Cough Code(s): R05 - COUGH (4) Acute bronchitis Code(s): J20.9 - ACUTE BRONCHITIS, UNSPECIFIED (5) CAD (coronary artery disease) Code(s): I25.10 - ATHSCL HEART DISEASE OF [place] CORONARY ARTERY W/O ANG PCTRS (6) Diabetes mellitus Code(s): E11.9 - TYPE 2 DIABETES MELLITUS WITHOUT COMPLICATIONS Qualifiers: Diabetes mellitus type: type 2 Diabetes mellitus complication status: with kidney complications Diabetes mellitus complication detail: with chronic kidney disease (7) Diastolic CHF Code(s): I50.30 - UNSPECIFIED DIASTOLIC (CONGESTIVE) HEART FAILURE (8) ESRD (end stage renal disease) on dialysis Code(s): N18.6 - END STAGE RENAL DISEASE; Z99.2 - DEPENDENCE ON RENAL DIALYSIS (9) Stented coronary artery Code(s): Z95.5 - PRESENCE OF CORONARY ANGIOPLASTY IMPLANT AND GRAFT (10) S/P CABG (coronary artery bypass graft) Code(s): Z95.1 - PRESENCE OF AORTOCORONARY BYPASS GRAFT Assessment/Plan Admit to Telemetry Serial CE Cardio consult Renal consult; pt to go for HD today AM Labs PO abtx.
[2018-03-06] MEDS: hydrALAZINE HCL 50 MG TABLET (FP) PO SCH ×3 (06:21→22:35)
[2018-03-06] MEDS: BRIMONIDINE TARTRATE 0.15% OPHTHALMIC 5 ML BOTTLE OS SCH ×3 (06:21→22:35)
[2018-03-06] MEDS: MAGNESIUM OXIDE 400 MG TABLET (FP) PO SCH ×3 (06:21→22:36)
[2018-03-06] MEDS ORDERED: ACETAMINOPHEN WITH CODEINE 300MG/30MG TABLET ONE (06:22)
[2018-03-06 07:34] LABS: ALBUMIN 3.1 g/dl (3.4-5.0); ALK PHOS 578 U/L (45-117); ANION GAP 12 MMOL/L (8-16); BILIRUBIN,TOTAL 0.3 mg/dL (0.2-1); BLOOD UREA NITROGEN 45 mg/dL (7-18); CALCIUM 7.5 mg/dL (8.5-10.1); CHLORIDE 102 mmol/L (98-107); CO2 20 mmol/L (21-32); GLUCOSE,RANDOM 275 mg/dL (74-106); POTASSIUM 4.3 mmol/L (3.5-5.1); SGOT/AST 9 U/L (15-37); SGPT/ALT 6 U/L (13-61); SODIUM 134 mmol/L (136-145); TOT PROT 7.6 g/dl (6.4-8.2)
[2018-03-06] MEDS: INSULIN SLIDING SCALE (NOVOLOG) 1 VIAL SQ SCH ×4 (08:10→22:39)
[2018-03-06] MEDS ORDERED: INSULIN (NOVOLOG) ASPART 100 UNITS/ML 10ML VIAL ONE ×2 (08:15→11:12)
--- NOTE | 2018-03-06 08:40 | EKG ---
Test Reason : Blood Pressure : / mmHG Vent. Rate : 093 BPM Atrial Rate : 093 BPM P-R Int : 170 ms QRS Dur : 094 ms QT Int : 394 ms P-R-T Axes : 062 023 092 degrees QTc Int : 489 ms NORMAL SINUS RHYTHM SEPTAL INFARCT (CITED ON OR BEFORE 13-DEC-2009) ABNORMAL ECG WHEN COMPARED WITH ECG OF 02-FEB-2018 09:23, NO SIGNIFICANT CHANGE WAS FOUND Confirmed by RONAK MILAN MD ([id number]) on 03/06/2018 8:40:34 AM Referred By: Confirmed By:RONAK MILAN MD
--- NOTE | 2018-03-06 08:40 | EKG ---
Test Reason : Blood Pressure : / mmHG Vent. Rate : 102 BPM Atrial Rate : 102 BPM P-R Int : 182 ms QRS Dur : 096 ms QT Int : 388 ms P-R-T Axes : 063 012 107 degrees QTc Int : 505 ms SINUS TACHYCARDIA POSSIBLE LEFT ATRIAL ENLARGEMENT ANTEROSEPTAL INFARCT (CITED ON OR BEFORE 13-DEC-2009) ABNORMAL ECG WHEN COMPARED WITH ECG OF 02-FEB-2018 09:23, QUESTIONABLE CHANGE IN INITIAL FORCES OF ANTERIOR LEADS Confirmed by RONAK MILAN MD ([id number]) on 03/06/2018 8:40:15 AM Referred By: Confirmed By:RONAK MILAN MD
[2018-03-06] MEDS: SEVELAMER CARBONATE 800 MG TAB (FP) PO SCH ×3 (09:00→17:43)
--- NOTE | 2018-03-06 10:12 | CON.CARD ---
Consult Consult Specialty:: Cardiology - History of Present Illness History of Present Illness: The patient is a 52 year old male with a significant past medical history of ESRD on HD (TuThSat) with recent LUE fistula revision on Thursday, CAD s/p CABG and stents, CHF, Asthma who presents to the ED with non-productive cough, shortness of breath, chest pain for about a week. He states his cough has been dry and progressing over the week. He states he feel SOB with exertion such that he can not walk across the room without becoming SOB. He reports some associated generalized weakness and body aches. He reports nonradiating, substernal chest pain which is exacerbated with excessive coughing. He also reports abdominal pain which is exacerbated with coughing. He denies the chest pain without coughing. He reportedly had one episode of NBNB vomiting this morning after a coughing episode. - History Source History Provided By: Patient - Past Medical History Cardio/Vascular: Yes: CAD, CHF (normal ejection fraction; poor LV compliance; no valvular abnormalities), HTN, Hyperlipdemia. No: AFIB, Aneurysm, Aortic Insufficiency, Aortic Stenosis, Deep Vein Thrombosis, AK, Mitral Insufficiency, Mitral Stenosis, Murmur, Pulmonary Hypertension, Other Pulmonary: Yes: Pneumonia Gastrointestinal: Yes: GERD, GI Bleed. No: Constipation, Crohn's Disease, Diverticulitis, Diverticulosis, Esophageal Varices, Gastritis, Hemorrhoids, Hiatal Hernia, Inflamatory Bowel Disease, Irritable Bowel Disease, Pancreatitis , Peptic Ulcer Disease, Ulcerative Colitis, Other Renal/: Yes: Renal Failure, Hemodialysis (ESRD on HD MWF via L arm AVF) Psych: Yes: Anxiety Musculoskeletal: Yes: Other (left metatarsal amputation). No: Bursitis, Chronic low back pain, Hemiparesis, Hemiplegia, Osteoarthritis, Paraplegia Rheumatology: Yes: Gout Endocrine: Yes: Diabetes Mellitus. No: [place]'s Disease, [place]'s Disease, Diabetes Insipidus, Hyperparathyroidism, Hyperthyroidism, Hypothyroidism, Osteopenia, SIADH, Other Additional Medical History: as above in HPI; L eye blindness; on renal transplant list at [facility] [place]. bilateral detached retinas - Past Surgical History Past Surgical History: Yes: Amputation (Left Transmetatarsal), AV Fistula/Graft (LUE), CABG (05/2010), Stent (s/p cardiac cath with stent placement). No: None, AAA Repair, AICD, Appendectomy, Arthrosocopy, Bariatric Surgery, Breast Biopsy, Bypass, Carotid Endarterectomy, Cataract Removal, Cholecystectomy, Colectomy, Colonoscopy, Colostomy, Craniotomy, , Cystectomy, Hernia Repair, Hysterectomy, Ileal Conduit, Ileosotomy, Joint Replacement, Kidney Transplant, Laminectomy, Liver Transplant, Mastectomy, Nephrectomy, Oopherectomy, Orchiectomy, Permanent Pacemaker, Prostatectomy, Splenectomy, Thoracotomy, TURP , Tonsillectomy, Tubal Ligation, Upper Endoscopy, Valve Replacement, Vasectomy, Vein Stripping/Ligation - Alcohol/Substance Use Hx Alcohol Use: No History of Substance Use: reports: None - Smoking History Smoking history: Never smoked Have you smoked in the past 12 months: No Aproximately how many cigarettes per day: 2 If you are a former smoker, when did you quit?: 1989 - Social History Usual Living Arrangement: With Spouse ADL: Independent 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 History of Recent Travel: No Home Medications - Allergies Allergies/Adverse Reactions: Allergies Allergy/AdvReac Type Severity Reaction Status Date / Time No Known Drug Allergies Allergy Verified 03/05/18 20:10 - Home Medications Home Medications: Ambulatory Orders Allopurinol [Zyloprim -] 100 mg PO DAILY 11/28/16 Atorvastatin Ca [Lipitor] 80 mg PO HS 11/28/16 Cinacalcet HCl [Sensipar] 30 mg PO DAILY 11/28/16 Ferrous Sulfate 325 mg PO DAILY 11/28/16 Furosemide [Lasix] 80 mg PO DAILY 11/28/16 Hydralazine HCl 50 mg PO TID 11/28/16 Lisinopril 5 mg PO DAILY 11/28/16 Omeprazole 20 mg PO DAILY 11/28/16 Sevelamer Carbonate [Renvela -] 800 mg NR TID 11/28/16 Aspirin [Jeremiah Chewable Aspirin] 81 mg PO DAILY 10/26/17 Cetirizine HCl 10 mg PO DAILY 10/26/17 Insulin Detemir [Levemir Flextouch] 15 units SQ HS 10/26/17 Acetaminophen W/ Codeine #3 [Tylenol # 3 -] 1 tab PO Q12H PRN tablet MDD 2 09/09 Albuterol 2.5/Ipratropium 0.5 [Duoneb -] 1 amp NEB Q6H PRN amp 10/30/17 Bimatoprost [Lumigan] 1 drop OS HS 02/02/18 Brimonidine Tartrate [Alphagan 0.15% -] 1 drop OS TID 02/02/18 Indomethacin 50 mg PO BID 02/02/18 Insulin Aspart [Novolog] 8 unit SQ AC 02/02/18 Magnesium Oxide [Magnesium] 400 mg PO TID 02/02/18 Tramadol HCl/Acetaminophen [Tramadol-Acetaminophn 37.5-325] 1 each PO BID Family Disease History - Family Disease History Family Disease History: Diabetes: Father, Mother, Other: Father, Mother Review of Systems - Review of Systems Constitutional: reports: No Symptoms Eyes: reports: No Symptoms HENT: reports: No Symptoms Neck: reports: No Symptoms Cardiovascular: reports: Shortness of Breath Respiratory: reports: SOB on Exertion Gastrointestinal: reports: No Symptoms Genitourinary: reports: No Symptoms Breasts: reports: No Symptoms Reported Musculoskeletal: reports: No Symptoms Integumentary: reports: No Symptoms Neurological: reports: No Symptoms Endocrine: reports: No Symptoms Hematology/Lymphatic: reports: No Symptoms Psychiatric: reports: No Symptoms Vital Signs: Vital Signs Temperature 98.9 F 03/06/18 05:39 Pulse Rate 96 H 03/06/18 05:39 Respiratory Rate 19 03/06/18 05:39 Blood Pressure 136/76 03/06/18 05:39 O2 Sat by Pulse Oximetry (%) 96 03/06/18 05:39 Constitutional: Yes: Well Nourished, No Distress, Calm Eyes: Yes: WNL, Conjunctiva Clear, EOM Intact HENT: Yes: WNL, Atraumatic, Normocephalic Neck: Yes: WNL, Supple, Trachea Midline Respiratory: Yes: Wheezes Gastrointestinal: Yes: WNL, Normal Bowel Sounds Renal/: Yes: WNL Cardiovascular: Yes: WNL, Regular Rate and Rhythm Musculoskeletal: Yes: WNL Extremities: Yes: Amputation Edema: Yes Integumentary: Yes: WNL Neurological: Yes: WNL, Alert, Oriented ...Motor Strength: WNL Psychiatric: Yes: WNL, Alert, Oriented - Other Data Labs, Other Data: CBC, BMP 03/06/18 05:30 03/06/18 05:30 Troponin, BNP 03/05/18 03/06/18 21:26 05:30 Troponin I 0.02 0.03 B-Natriuretic Peptide 6662.5 H Troponin, BNP 03/05/18 03/06/18 21:26 05:30 Troponin I 0.02 0.03 B-Natriuretic Peptide 6662.5 H Imaging - Results Chest X-ray: Image Reviewed (no i/e s/p OHS) EKG: Image Reviewed (s tachy rep abn) Problem List - Problems (1) Asthma Code(s): J45.909 - UNSPECIFIED ASTHMA, UNCOMPLICATED (2) CHF exacerbation Code(s): I50.9 - HEART FAILURE, UNSPECIFIED (3) Chest pain Code(s): R07.9 - CHEST PAIN, UNSPECIFIED (4) Cough Code(s): R05 - COUGH (5) Abdominal pain Code(s): R10.9 - UNSPECIFIED ABDOMINAL PAIN Qualifiers: Abdominal location: right lower quadrant Qualified Code(s): R10.31 - Right lower quadrant pain (6) 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A (7) Accidental fall Code(s): W19.XXXA - UNSPECIFIED FALL, INITIAL ENCOUNTER Qualifiers: Encounter type: initial encounter Qualified Code(s): W19.XXXA - Unspecified fall, initial encounter (8) Acute gastroenteritis Code(s): K52.9 - NONINFECTIVE GASTROENTERITIS AND COLITIS, UNSPECIFIED (9) Acute hyperkalemia Code(s): E87.5 - HYPERKALEMIA (10) Anemia Code(s): D64.9 - ANEMIA, UNSPECIFIED (11) Anemia in ESRD (end-stage renal disease) Code(s): N18.6 - END STAGE RENAL DISEASE; D63.1 - ANEMIA IN CHRONIC KIDNEY DISEASE (12) Atypical chest pain Code(s): R07.89 - OTHER CHEST PAIN (13) Back pain Code(s): M54.9 - DORSALGIA, UNSPECIFIED (14) Bacteremia Code(s): R78.81 - BACTEREMIA (15) Bacteremia due to Gram-positive bacteria Code(s): A49.9 - BACTERIAL INFECTION, UNSPECIFIED (16) Bleeding Code(s): R58 - HEMORRHAGE, NOT ELSEWHERE CLASSIFIED (17) CAD (coronary artery disease) Code(s): I25.10 - ATHSCL HEART DISEASE OF [place] CORONARY ARTERY W/O ANG PCTRS (18) CHF (congestive heart failure) Code(s): I50.9 - HEART FAILURE, UNSPECIFIED (19) COPD (chronic obstructive pulmonary disease) Code(s): J44.9 - CHRONIC OBSTRUCTIVE PULMONARY DISEASE, UNSPECIFIED (20) COPD exacerbation Code(s): J44.1 - CHRONIC OBSTRUCTIVE PULMONARY DISEASE W (ACUTE) EXACERBATION (21) CRF (chronic renal failure) Code(s): N18.9 - CHRONIC KIDNEY DISEASE, UNSPECIFIED (22) Chest pain, midsternal Code(s): R07.89 - OTHER CHEST PAIN (23) Chronic GERD Code(s): K21.9 - GASTRO-ESOPHAGEAL REFLUX DISEASE WITHOUT ESOPHAGITIS (24) Chronic osteomyelitis of cervical spine Code(s): M46.22 - OSTEOMYELITIS OF [place], CERVICAL REGION (25) Conjunctivitis Code(s): H10.9 - UNSPECIFIED CONJUNCTIVITIS (26) Contusion of right knee Code(s): S80.01XA - CONTUSION OF RIGHT KNEE, INITIAL ENCOUNTER Qualifiers: Encounter type: initial encounter Qualified Code(s): S80.01XA - Contusion of right knee, initial encounter (27) DM (diabetes mellitus), type 2 with renal complications Code(s): E11.29 - TYPE 2 DIABETES MELLITUS W OTH DIABETIC KIDNEY COMPLICATION (28) DVT prophylaxis Code(s): FFT2012 - (29) Dehydration Code(s): E86.0 - DEHYDRATION (30) Depression Code(s): F32.9 - MAJOR DEPRESSIVE DISORDER, SINGLE EPISODE, UNSPECIFIED (31) Diabetes mellitus Code(s): E11.9 - TYPE 2 DIABETES MELLITUS WITHOUT COMPLICATIONS Qualifiers: Diabetes mellitus type: type 2 Diabetes mellitus complication status: with kidney complications Diabetes mellitus complication detail: with chronic kidney disease (32) Diabetes mellitus with foot ulcer and gangrene Code(s): E11.621 - TYPE 2 DIABETES MELLITUS WITH FOOT ULCER; L97.509 - NON- PRESSURE CHRONIC ULCER OTH PRT UNSP FOOT W UNSP SEVERITY (33) Diastolic CHF Code(s): I50.30 - UNSPECIFIED DIASTOLIC (CONGESTIVE) HEART FAILURE (34) ESRD (end stage renal disease) Code(s): N18.6 - END STAGE RENAL DISEASE (35) ESRD (end stage renal disease) on dialysis Code(s): N18.6 - END STAGE RENAL DISEASE; Z99.2 - DEPENDENCE ON RENAL DIALYSIS (36) ESRD needing dialysis Code(s): N18.6 - END STAGE RENAL DISEASE (37) ESRD on hemodialysis Code(s): N18.6 - END STAGE RENAL DISEASE; Z99.2 - DEPENDENCE ON RENAL DIALYSIS (38) Elevated cholesterol Code(s): E78.0 - PURE HYPERCHOLESTEROLEMIA * DO NOT USE * (39) Elevated troponin I level Code(s): R79.89 - OTHER SPECIFIED ABNORMAL FINDINGS OF BLOOD CHEMISTRY (40) Epigastric abdominal pain Code(s): R10.13 - EPIGASTRIC PAIN (41) Epistaxis Code(s): R04.0 - EPISTAXIS (42) Fall Code(s): W19.XXXA - UNSPECIFIED FALL, INITIAL ENCOUNTER (43) Fever Code(s): R50.9 - FEVER, UNSPECIFIED (44) GERD (gastroesophageal reflux disease) Code(s): K21.9 - GASTRO-ESOPHAGEAL REFLUX DISEASE WITHOUT ESOPHAGITIS (45) Gout Code(s): M10.9 - GOUT, UNSPECIFIED (46) HTN (hypertension), malignant Code(s): I10 - ESSENTIAL (PRIMARY) HYPERTENSION (47) Hematoma of left iliopsoas muscle Code(s): S70.12XA - CONTUSION OF LEFT THIGH, INITIAL ENCOUNTER (48) History of AK (myocardial infarction) Code(s): I25.2 - OLD MYOCARDIAL INFARCTION (49) History of coronary artery bypass graft Code(s): Z95.1 - PRESENCE OF AORTOCORONARY BYPASS GRAFT (50) History of hyperkeratosis of skin Code(s): Z87.2 - PERSONAL HISTORY OF DISEASES OF THE SKIN, SUBCU (51) Hyperglycemia Code(s): R73.9 - HYPERGLYCEMIA, UNSPECIFIED (52) Hyperkalemia Code(s): E87.5 - HYPERKALEMIA (53) Hyperlipemia Code(s): E78.5 - HYPERLIPIDEMIA, UNSPECIFIED (54) Hyperphosphatemia Code(s): E83.39 - OTHER DISORDERS OF PHOSPHORUS METABOLISM (55) Hypertension Code(s): I10 - ESSENTIAL (PRIMARY) HYPERTENSION Qualifiers: Hypertension type: essential hypertension Qualified Code(s): I10 - Essential (primary) hypertension (56) Hypomagnesemia Code(s): E83.42 - HYPOMAGNESEMIA (57) Hyponatremia Code(s): E87.1 - HYPO-OSMOLALITY AND HYPONATREMIA (58) Hypotension of hemodialysis Code(s): I95.3 - HYPOTENSION OF HEMODIALYSIS (59) Influenza Code(s): J11.1 - FLU DUE TO UNIDENTIFIED INFLUENZA VIRUS W OTH RESP MANIFEST (60) Knee injury Code(s): S89.90XA - UNSPECIFIED INJURY OF UNSPECIFIED LOWER LEG, INIT ENCNTR Qualifiers: Encounter type: initial encounter Laterality: right Qualified Code(s): S89.91XA - Unspecified injury of right lower leg, initial encounter (61) Knee pain Code(s): M25.569 - PAIN IN UNSPECIFIED KNEE Qualifiers: Chronicity: unspecified Laterality: right Qualified Code(s): M25.561 - Pain in right knee (62) MRSA (methicillin resistant staph aureus) culture positive Code(s): Z22.322 - CARRIER OR SUSPECTED CARRIER OF METHICILLIN RESIS STAPH (63) MRSA bacteremia Code(s): R78.81 - BACTEREMIA (64) MSSA (methicillin susceptible Staphylococcus aureus) infection Code(s): A49.01 - METHICILLIN SUSCEP STAPH INFECTION, UNSP SITE (65) Neck pain Code(s): M54.2 - CERVICALGIA (66) Nondisplaced transverse fracture of right patella, initial encounter for closed fracture Code(s): S82.034A - NONDISPLACED TRANSVERSE FRACTURE OF RIGHT PATELLA, INIT (67) Open wound of left foot Code(s): S91.302A - UNSPECIFIED OPEN WOUND, LEFT FOOT, INITIAL ENCOUNTER Qualifiers: Encounter type: subsequent encounter Qualified Code(s): S91.302D - Unspecified open wound, left foot, subsequent encounter (68) Osteomyelitis Code(s): M86.9 - OSTEOMYELITIS, UNSPECIFIED (69) Osteomyelitis of cervical spine Code(s): M46.22 - OSTEOMYELITIS OF [place], CERVICAL REGION (70) Osteomyelitis of left foot Code(s): M86.9 - OSTEOMYELITIS, UNSPECIFIED (71) Pain Code(s): R52 - PAIN, UNSPECIFIED (72) Pleural effusion Code(s): J90 - PLEURAL EFFUSION, NOT ELSEWHERE CLASSIFIED (73) Pneumonia Code(s): J18.9 - PNEUMONIA, UNSPECIFIED ORGANISM Qualifiers: Pneumonia type: due to unspecified organism (74) Posterior neck pain Code(s): M54.2 - CERVICALGIA (75) Renal failure Code(s): N19 - UNSPECIFIED KIDNEY FAILURE (76) S/P CABG (coronary artery bypass graft) Code(s): Z95.1 - PRESENCE OF AORTOCORONARY BYPASS GRAFT (77) Sepsis Code(s): A41.9 - SEPSIS, UNSPECIFIED ORGANISM Qualifiers: Sepsis type: sepsis due to unspecified organism Qualified Code(s): A41.9 - Sepsis, unspecified organism (78) Shoulder injury Code(s): S49.90XA - UNSP INJURY OF SHOULDER AND UPPER ARM, UNSP ARM, INIT ENCNTR Qualifiers: Encounter type: initial encounter Laterality: unspecified laterality Qualified Code(s): S49.90XA - Unspecified injury of shoulder and upper arm, unspecified arm, initial encounter (79) Stented coronary artery Code(s): Z95.5 - PRESENCE OF CORONARY ANGIOPLASTY IMPLANT AND GRAFT (80) Syncope Code(s): R55 - SYNCOPE AND COLLAPSE Qualifiers: Syncope type: unspecified Qualified Code(s): R55 - Syncope and collapse (81) Systolic and diastolic CHF, chronic Code(s): I50.42 - CHRONIC COMBINED SYSTOLIC AND DIASTOLIC HRT FAIL (82) Uncontrolled diabetes mellitus Code(s): E11.65 - TYPE 2 DIABETES MELLITUS WITH HYPERGLYCEMIA (83) Upper abdominal pain Code(s): R10.10 - UPPER ABDOMINAL PAIN, UNSPECIFIED (84) Urinary tract infection Code(s): N39.0 - URINARY TRACT INFECTION, SITE NOT SPECIFIED (85) Weakness Code(s): R53.1 - WEAKNESS (86) Wound infection Code(s): T14.8 - OTHER INJURY OF UNSPECIFIED BODY REGION * DO NOT USE *; L08.9 - LOCAL INFECTION OF THE SKIN AND SUBCUTANEOUS TISSUE, UNSP Assessment/Plan The patient is a 52 year old male with a significant past medical history of ESRD on HD (TuThSat) with recent LUE fistula revision on Thursday, CAD s/p CABG and stents, CHF, Asthma who presents to the ED with non-productive cough, shortness of breath, chest pain for about a week. He states his cough has been dry and progressing over the week. He states he feel SOB with exertion such that he can not walk across the room without becoming SOB. He reports some associated generalized weakness and body aches. He reports nonradiating, substernal chest pain which is exacerbated with excessive coughing. He also reports abdominal pain which is exacerbated with coughing. He denies the chest pain without coughing. He reportedly had one episode of NBNB vomiting this morning after a coughing episode. Plan HD for volume removal cont med rx
[2018-03-06] MEDS: ASPIRIN 81 MG CHEWABLE TABLETS PO SCH (10:30)
[2018-03-06] MEDS: ALLOPURINOL 100 MG TABLET (FP) PO SCH (10:30)
[2018-03-06] MEDS: PANTOPRAZOLE 40 MG TABLET (FP) PO SCH (10:30)
[2018-03-06] MEDS: CINACALCET HCL 30 MG TAB (FP) PO SCH (10:30)
--- NOTE | 2018-03-06 10:56 | CONSULT ---
Consult - text type - Consultation Consultation Note: Renal Consult for ESRD on HD/SOB This is a 58 year old gentleman with hx of ESRD on HD (TTS), Hypertension, DM, CAD s/p CABG who presented to the ED with complaints of fever , sob and productive cough and admitted with r/o PNA vs viral syndrome. Tmax at home was 101. Last dialysis was w/o complication. Denies any CP, N/V/ D. Does not make urine. S/p recent AVF excision by vascular for pseduoanerysm. He was on Abx recently for suspected AVF infection. All cultures from recent admission negative apart from wound culture that showed MRSA. Has a permacath in place now. PMhx: as above Allergies: NKDA Family Hx: NC Social Hx: No T/A/D ROS: as per HPI Home Medications Medication Instructions Recorded Allopurinol [Zyloprim -] 100 mg PO DAILY 11/28/16 Atorvastatin Ca [Lipitor] 80 mg PO HS 11/28/16 Cinacalcet HCl [Sensipar] 30 mg PO DAILY 11/28/16 Ferrous Sulfate 325 mg PO DAILY 11/28/16 Furosemide [Lasix] 80 mg PO DAILY 11/28/16 Hydralazine HCl 50 mg PO TID 11/28/16 Lisinopril 5 mg PO DAILY 11/28/16 Omeprazole 20 mg PO DAILY 11/28/16 Sevelamer Carbonate [Renvela -] 800 mg NR TID 11/28/16 Aspirin [Jeremiah Chewable Aspirin] 81 mg PO DAILY 10/26/17 Cetirizine HCl 10 mg PO DAILY 10/26/17 Insulin Detemir [Levemir Flextouch] 15 units SQ HS 10/26/17 Acetaminophen W/ Codeine #3 1 tab PO Q12H PRN tablet MDD 2 10/30/17 [Tylenol # 3 -] Albuterol 2.5/Ipratropium 0.5 1 amp NEB Q6H PRN amp 10/30/17 [Duoneb -] Bimatoprost [Lumigan] 1 drop OS HS 02/02/18 Brimonidine Tartrate [Alphagan 1 drop OS TID 02/02/18 0.15% -] Indomethacin 50 mg PO BID 02/02/18 Insulin Aspart [Novolog] 8 unit SQ AC 02/02/18 Magnesium Oxide [Magnesium] 400 mg PO TID 02/02/18 Tramadol HCl/Acetaminophen 1 each PO BID 02/02/18 [Tramadol-Acetaminophn 37.5-325] Vital Signs Temperature 98.9 F 03/06/18 05:39 Pulse Rate 96 H 03/06/18 05:39 Respiratory Rate 19 03/06/18 05:39 Blood Pressure 136/76 03/06/18 05:39 O2 Sat by Pulse Oximetry (%) 96 03/06/18 05:39 Intake & Output 03/03/18 03/04/18 03/05/18 03/06/18 23:59 23:59 23:59 23:59 Weight 92.533 kg NAD awake and alert neck supple RRR CTA, no rales soft NT/ND trace to 1+ LE edema no focal neurological defects CBC, BMP 03/06/18 05:30 03/06/18 05:30 Current Medications Acetaminophen (Tylenol -) 650 mg PO Q6H PRN PRN Reason: PAIN LEVEL 1-5 Acetaminophen/Codeine Phosphate (Tylenol # 3 -) 1 tab PO Q6H PRN PRN Reason: PAIN LEVEL 6-10 Last Admin: 03/06/18 06:24 Dose: 1 tab Albuterol/Ipratropium (Duoneb -) 1 amp NEB Q6H PRN PRN Reason: SHORTNESS OF BREATH Allopurinol (Zyloprim -) 100 mg PO DAILY PENDING SALE TO [facility] Aspirin (Asa -) 81 mg PO DAILY PENDING SALE TO [facility] Atorvastatin Calcium (Lipitor -) 80 mg PO HS PENDING SALE TO [facility] Brimonidine Tartrate (Alphagan 0.15% -) 1 drop OS TID PENDING SALE TO [facility] Last Admin: 03/06/18 06:21 Dose: 0.15 dose Cinacalcet (Sensipar -) 30 mg PO DAILY PENDING SALE TO [facility] Furosemide (Lasix -) 80 mg PO DAILY PENDING SALE TO [facility] Hydralazine HCl (Apresoline -) 50 mg PO TID PENDING SALE TO [facility] Last Admin: 03/06/18 06:21 Dose: 50 mg Insulin Aspart (Novolog Vial Sliding Scale -) 1 vial SQ ACHS PENDING SALE TO [facility]; Protocol Last Admin: 03/06/18 08:10 Dose: 6 units Latanoprost (Xalatan 0.005% Eye Drops -) 1 drop OS HS PENDING SALE TO [facility] Lisinopril (Prinivil) 5 mg PO DAILY PENDING SALE TO [facility] Magnesium Oxide (Mag-Ox -) 400 mg PO TID PENDING SALE TO [facility] Last Admin: 03/06/18 06:21 Dose: 400 mg Pantoprazole Sodium (Protonix -) 40 mg PO DAILY PENDING SALE TO [facility] Sevelamer Carbonate (Renvela -) 800 mg PO TIDCM PENDING SALE TO [facility] 58 year old gentleman with hx of ESRD on HD (TTS), Hypertension, DM, CAD s/p CABG who presented to the ED with complaints of fever, sob and productive cough and admitted with r/o PNA vs viral syndrome. #ESRD on HD #Cough with fever w/o Xray evidence of PNA #Recent AVF infection s/p excision #DM #Hypertension #CKD related Anemia Will plan for dialysis as inpatient today with UF as tolerated no gross evidence of HF apart from slight LE edema Pt had completed a 2 week course of Vanco and Fortaz for AVF infection so unlikley to be bacterial infection now will use permacath for dialysis today HOld BP meds prior to dialysis will give high dose DAVON with HD today for anemia, no need for PRBC transfusion Contniue insulin continue sensipar Thank you Will follow Antwan Hurley DO
[2018-03-06] MEDS ORDERED: SODIUM CHLORIDE 250 ML IV PRN (10:58)
[2018-03-06] MEDS: FUROSEMIDE 40 MG TABLET (FP) PO SCH (10:59)
[2018-03-06] MEDS: LISINOPRIL 5 MG TABLET (FP) PO SCH (10:59)
[2018-03-06] MEDS ORDERED: morphine CARPU-JECT 2 MG/1 ML DISP.SYRIN IVPUSH ONE (11:31)
[2018-03-06] MEDS ORDERED: MORPHINE SULFATE 2 MG/ML VIAL ONE (11:32)
[2018-03-06] MEDS ORDERED: EPOETIN ALFA 20,000 UNIT/1 ML VIAL IVPUSH ONE ×2 (12:45→15:45)
[2018-03-06] MEDS ORDERED: AMOX TR/POT CLAV 250MG/125MG TABLETS PO SCH (15:45)
[2018-03-06] MEDS ORDERED: PT OWN MED DRAWER 7, Y5N ONE ×2 (17:38→21:48)
[2018-03-06] MEDS: ALBUTEROL SO4 2.5/IPRATROPIUM 0.5 INH SOL 3 ML VIAL.NEB. NEB PRN (17:38)
[2018-03-06] MEDS: AMOX TR/POT CLAV 250MG/125MG TABLETS PO SCH (18:19)
[2018-03-06] MEDS: LATANOPROST 0.005% OPHTH SOLN 2.5ML BOTTLE OS SCH (22:36)
[2018-03-06] MEDS: ATORVASTATIN CA 80 MG TABLET (FP) PO SCH (22:36)
[2018-03-06] MEDS: guaiFENesin/D-METHORPHAN HB 10 ML UNIT-DOSE CUPS PO PRN (22:36)
[2018-03-07 04:09] LABS: HBSAG SCREEN Negative (Negative); HEP B CORE AB, TOT Negative (Negative)
--- NOTE | 2018-03-07 06:13 | PN ---
Progress Note, Physician Chief Complaint: in bed awake alert NAD; had low grade fever last night; less cough no other c/o; AVF dressed - Current Medication List Current Medications: Active Medications Acetaminophen (Tylenol -) 650 mg PO Q6H PRN PRN Reason: PAIN LEVEL 1-5 Last Admin: 03/06/18 22:36 Dose: 650 mg Acetaminophen/Codeine Phosphate (Tylenol # 3 -) 2 tab PO Q6H PRN PRN Reason: PAIN LEVEL 6-10 Albuterol/Ipratropium (Duoneb -) 1 amp NEB Q6H PRN PRN Reason: SHORTNESS OF BREATH Last Admin: 03/06/18 17:38 Dose: 1 amp Allopurinol (Zyloprim -) 100 mg PO DAILY [facility] Last Admin: 03/06/18 10:30 Dose: 100 mg Amoxicillin/Clavulanate Potassium (Augmentin - 250mg Tablet) 1 tab PO DAILY [facility] Last Admin: 03/06/18 18:19 Dose: 1 tab Amoxicillin/Clavulanate Potassium (Augmentin - 250mg Tablet) 1 tab PO PRN [facility] Aspirin (Asa -) 81 mg PO DAILY [facility] Last Admin: 03/06/18 10:30 Dose: 81 mg Atorvastatin Calcium (Lipitor -) 80 mg PO HS [facility] Last Admin: 03/06/18 22:36 Dose: 80 mg Brimonidine Tartrate (Alphagan 0.15% -) 1 drop OS TID [facility] Last Admin: 03/06/18 22:35 Dose: 1 dose Cinacalcet (Sensipar -) 30 mg PO DAILY [facility] Last Admin: 03/06/18 10:30 Dose: 30 mg Furosemide (Lasix -) 80 mg PO DAILY [facility] Last Admin: 03/06/18 10:59 Dose: Not Given Guaifenesin (Robitussin Dm -) 10 ml PO Q4H PRN PRN Reason: COUGH Last Admin: 03/06/18 22:36 Dose: 10 ml Hydralazine HCl (Apresoline -) 50 mg PO TID [facility] Last Admin: 03/06/18 22:35 Dose: 50 mg Sodium Chloride (Normal Saline -) 250 mls @ 3,000 mls/hr IV PRN PRN PRN Reason: Hypotension during Dialysis Stop: 03/07/18 10:58 Insulin Aspart (Novolog Vial Sliding Scale -) 1 vial SQ ACHS [facility]; Protocol Last Admin: 03/06/18 22:39 Dose: 2 units Latanoprost (Xalatan 0.005% Eye Drops -) 1 drop OS HS [facility] Last Admin: 03/06/18 22:36 Dose: 1 drop Lisinopril (Prinivil) 5 mg PO DAILY [facility] Last Admin: 03/06/18 10:59 Dose: Not Given Magnesium Oxide (Mag-Ox -) 400 mg PO TID [facility] Last Admin: 03/06/18 22:36 Dose: 400 mg Pantoprazole Sodium (Protonix -) 40 mg PO DAILY [facility] Last Admin: 03/06/18 10:30 Dose: 40 mg Sevelamer Carbonate (Renvela -) 800 mg PO TIDCM [facility] Last Admin: 03/06/18 17:43 Dose: 800 mg - Objective Vital Signs: Vital Signs Temperature 98.6 F 03/07/18 06:00 Pulse Rate 103 H 03/07/18 06:00 Respiratory Rate 20 03/07/18 06:00 Blood Pressure 168/96 03/07/18 06:00 O2 Sat by Pulse Oximetry (%) 96 03/06/18 23:59 Constitutional: Yes: No Distress, Calm Eyes: Yes: Conjunctiva Clear HENT: Yes: Atraumatic Neck: Yes: Supple Cardiovascular: Yes: Regular Rate and Rhythm Respiratory: Yes: CTA Bilaterally Gastrointestinal: Yes: Soft. No: Tenderness Genitourinary: No: CVA Tenderness - Left, CVA Tenderness - Right Musculoskeletal: No: Joint Stiffness, Joint Swelling Extremities: Yes: Amputation (LLE foot). No: Cold, Cool, Cyanosis Edema: No Integumentary: No: Rash, Venous Stasis Changes Neurological: Yes: WNL, Alert, Oriented ...Motor Strength: WNL Psychiatric: Yes: WNL, Alert, Oriented. No: Agitated, Suicidal Ideation Labs: CBC, BMP 03/06/18 05:30 03/06/18 05:30 - ....Imaging Other: Report Reviewed Assessment/Plan This is a 53 year old gentleman with hx of ESRD on HD, Hypertension, DM , CAD s/p CABG who presented to the ED with complaints of fever, sob and productive cough and admitted with r/o PNA vs viral syndrome. Tmax at home was 101. Last dialysis was Thursday w/o complication. S/p recent AVF excision by vascular for pseduoanerysm. He was on Abx recently for suspected AVF infection. All cultures from recent admission negative apart from wound culture that showed MRSA. Has a permacath in place now. would ask ID for forther advised on ATB; blood cx sent dyalsis per renal cardiology f/u falls DVT decubs PFX d/w pt and staff
[2018-03-07] MEDS: hydrALAZINE HCL 50 MG TABLET (FP) PO SCH ×3 (06:37→21:26)
[2018-03-07] MEDS: INSULIN SLIDING SCALE (NOVOLOG) 1 VIAL SQ SCH ×4 (06:37→21:27)
[2018-03-07] MEDS: guaiFENesin/D-METHORPHAN HB 10 ML UNIT-DOSE CUPS PO PRN (06:37)
[2018-03-07] MEDS: MAGNESIUM OXIDE 400 MG TABLET (FP) PO SCH ×3 (06:37→21:26)
[2018-03-07] MEDS: BRIMONIDINE TARTRATE 0.15% OPHTHALMIC 5 ML BOTTLE OS SCH ×3 (06:49→21:26)
[2018-03-07 07:47] LABS: HEMATOCRIT 30.7 % (35.4-49); HEMOGLOBIN 9.5 GM/dL (11.7-16.9); MCH 29.5 pg (25.7-33.7); MCHC 30.9 g/dl (32.0-35.9); MEAN CELL VOLUME 95.5 fl (80-96); MEAN PLT VOLUME 8.9 fl (7.5-11.1); PLATELET COUNT 239 K/MM3 (134-434); RBC 3.21 M/mm3 (4.00-5.60); RDW 16.9 % (11.9-15.9); WHITE BLOOD COUNT 4.9 K/mm3 (4.0-10.0)
[2018-03-07 08:05] LABS: ANION GAP 11 MMOL/L (8-16); BLOOD UREA NITROGEN 21 mg/dL (7-18); CHLORIDE 97 mmol/L (98-107); CO2 27 mmol/L (21-32); CREATININE 5.2 mg/dL (0.55-1.3); GLUCOSE,RANDOM 267 mg/dL (74-106); POTASSIUM 3.9 mmol/L (3.5-5.1); SODIUM 135 mmol/L (136-145)
[2018-03-07] MEDS ORDERED: PT OWN MED DRAWER 7, Y5N ONE ×2 (08:54→22:50)
[2018-03-07] MEDS: AMOX TR/POT CLAV 250MG/125MG TABLETS PO SCH (09:16)
[2018-03-07] MEDS: LISINOPRIL 5 MG TABLET (FP) PO SCH (09:17)
[2018-03-07] MEDS: ASPIRIN 81 MG CHEWABLE TABLETS PO SCH (09:17)
[2018-03-07] MEDS: CINACALCET HCL 30 MG TAB (FP) PO SCH (09:17)
[2018-03-07] MEDS: FUROSEMIDE 40 MG TABLET (FP) PO SCH (09:17)
[2018-03-07] MEDS: SEVELAMER CARBONATE 800 MG TAB (FP) PO SCH ×3 (09:17→16:43)
[2018-03-07] MEDS: PANTOPRAZOLE 40 MG TABLET (FP) PO SCH (09:17)
[2018-03-07] MEDS: ALLOPURINOL 100 MG TABLET (FP) PO SCH (09:17)
--- NOTE | 2018-03-07 09:17 | PN ---
Progress Note, Physician History of Present Illness: The patient is a 52 year old male with a significant past medical history of ESRD on HD (TuThSat) with recent LUE fistula revision on Thursday, CAD s/p CABG and stents, CHF, Asthma who presents to the ED with non-productive cough, shortness of breath, chest pain for about a week. He states his cough has been dry and progressing over the week. He states he feel SOB with exertion such that he can not walk across the room without becoming SOB. He reports some associated generalized weakness and body aches. He reports nonradiating, substernal chest pain which is exacerbated with excessive coughing. He also reports abdominal pain which is exacerbated with coughing. He denies the chest pain without coughing. He reportedly had one episode of NBNB vomiting this morning after a coughing episode. - Current Medication List Current Medications: Active Medications Acetaminophen (Tylenol -) 650 mg PO Q6H PRN PRN Reason: PAIN LEVEL 1-5 Last Admin: 03/06/18 22:36 Dose: 650 mg Acetaminophen/Codeine Phosphate (Tylenol # 3 -) 2 tab PO Q6H PRN PRN Reason: PAIN LEVEL 6-10 Albuterol/Ipratropium (Duoneb -) 1 amp NEB Q6H PRN PRN Reason: SHORTNESS OF BREATH Last Admin: 03/06/18 17:38 Dose: 1 amp Allopurinol (Zyloprim -) 100 mg PO DAILY [facility] Last Admin: 03/06/18 10:30 Dose: 100 mg Amoxicillin/Clavulanate Potassium (Augmentin - 250mg Tablet) 1 tab PO DAILY [facility] Last Admin: 03/06/18 18:19 Dose: 1 tab Amoxicillin/Clavulanate Potassium (Augmentin - 250mg Tablet) 1 tab PO PRN [facility] Aspirin (Asa -) 81 mg PO DAILY [facility] Last Admin: 03/06/18 10:30 Dose: 81 mg Atorvastatin Calcium (Lipitor -) 80 mg PO HS [facility] Last Admin: 03/06/18 22:36 Dose: 80 mg Brimonidine Tartrate (Alphagan 0.15% -) 1 drop OS TID [facility] Last Admin: 03/07/18 06:49 Dose: 1 dose Cinacalcet (Sensipar -) 30 mg PO DAILY [facility] Last Admin: 03/06/18 10:30 Dose: 30 mg Furosemide (Lasix -) 80 mg PO DAILY [facility] Last Admin: 03/06/18 10:59 Dose: Not Given Guaifenesin (Robitussin Dm -) 10 ml PO Q4H PRN PRN Reason: COUGH Last Admin: 03/07/18 06:37 Dose: 10 ml Hydralazine HCl (Apresoline -) 50 mg PO TID [facility] Last Admin: 03/07/18 06:37 Dose: 50 mg Sodium Chloride (Normal Saline -) 250 mls @ 3,000 mls/hr IV PRN PRN PRN Reason: Hypotension during Dialysis Stop: 03/07/18 10:58 Insulin Aspart (Novolog Vial Sliding Scale -) 1 vial SQ [facility]; Protocol Last Admin: 03/07/18 06:37 Dose: 4 units Latanoprost (Xalatan 0.005% Eye Drops -) 1 drop OS HS [facility] Last Admin: 03/06/18 22:36 Dose: 1 drop Lisinopril (Prinivil) 5 mg PO DAILY [facility] Last Admin: 03/06/18 10:59 Dose: Not Given Magnesium Oxide (Mag-Ox -) 400 mg PO TID [facility] Last Admin: 03/07/18 06:37 Dose: 400 mg Pantoprazole Sodium (Protonix -) 40 mg PO DAILY [facility] Last Admin: 03/06/18 10:30 Dose: 40 mg Sevelamer Carbonate (Renvela -) 800 mg PO TIDCM [facility] Last Admin: 03/06/18 17:43 Dose: 800 mg - Objective Vital Signs: Vital Signs Temperature 98.6 F 03/07/18 06:00 Pulse Rate 103 H 03/07/18 06:00 Respiratory Rate 20 03/07/18 06:00 Blood Pressure 168/96 03/07/18 06:00 O2 Sat by Pulse Oximetry (%) 96 03/06/18 23:59 Eyes: Yes: WNL, Conjunctiva Clear, EOM Intact HENT: Yes: WNL, Atraumatic, Normocephalic Neck: Yes: WNL, Supple, Trachea Midline Cardiovascular: Yes: WNL, Regular Rate and Rhythm Respiratory: Yes: WNL, Regular, CTA Bilaterally Gastrointestinal: Yes: WNL, Normal Bowel Sounds Genitourinary: Yes: WNL Musculoskeletal: Yes: WNL Extremities: Yes: Amputation Edema: Yes Edema: LLE: Trace, RLE: Trace Integumentary: Yes: WNL Neurological: Yes: WNL, Alert, Oriented ...Motor Strength: WNL Psychiatric: Yes: WNL Labs: CBC, BMP 03/07/18 06:30 03/07/18 06:30 Problem List - Problems (1) Asthma Code(s): J45.909 - UNSPECIFIED ASTHMA, UNCOMPLICATED (2) CHF exacerbation Code(s): I50.9 - HEART FAILURE, UNSPECIFIED (3) Chest pain Code(s): R07.9 - CHEST PAIN, UNSPECIFIED (4) Cough Code(s): R05 - COUGH (5) Abdominal pain Code(s): R10.9 - UNSPECIFIED ABDOMINAL PAIN Qualifiers: Abdominal location: right lower quadrant Qualified Code(s): R10.31 - Right lower quadrant pain (6) 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A (7) Accidental fall Code(s): W19.XXXA - UNSPECIFIED FALL, INITIAL ENCOUNTER Qualifiers: Encounter type: initial encounter Qualified Code(s): W19.XXXA - Unspecified fall, initial encounter (8) Acute gastroenteritis Code(s): K52.9 - NONINFECTIVE GASTROENTERITIS AND COLITIS, UNSPECIFIED (9) Acute hyperkalemia Code(s): E87.5 - HYPERKALEMIA (10) Anemia Code(s): D64.9 - ANEMIA, UNSPECIFIED (11) Anemia in ESRD (end-stage renal disease) Code(s): N18.6 - END STAGE RENAL DISEASE; D63.1 - ANEMIA IN CHRONIC KIDNEY DISEASE (12) Atypical chest pain Code(s): R07.89 - OTHER CHEST PAIN (13) Back pain Code(s): M54.9 - DORSALGIA, UNSPECIFIED (14) Bacteremia Code(s): R78.81 - BACTEREMIA (15) Bacteremia due to Gram-positive bacteria Code(s): A49.9 - BACTERIAL INFECTION, UNSPECIFIED (16) Bleeding Code(s): R58 - HEMORRHAGE, NOT ELSEWHERE CLASSIFIED (17) CAD (coronary artery disease) Code(s): I25.10 - ATHSCL HEART DISEASE OF [place] CORONARY ARTERY W/O ANG PCTRS (18) CHF (congestive heart failure) Code(s): I50.9 - HEART FAILURE, UNSPECIFIED (19) COPD (chronic obstructive pulmonary disease) Code(s): J44.9 - CHRONIC OBSTRUCTIVE PULMONARY DISEASE, UNSPECIFIED (20) COPD exacerbation Code(s): J44.1 - CHRONIC OBSTRUCTIVE PULMONARY DISEASE W (ACUTE) EXACERBATION (21) CRF (chronic renal failure) Code(s): N18.9 - CHRONIC KIDNEY DISEASE, UNSPECIFIED (22) Chest pain, midsternal Code(s): R07.89 - OTHER CHEST PAIN (23) Chronic GERD Code(s): K21.9 - GASTRO-ESOPHAGEAL REFLUX DISEASE WITHOUT ESOPHAGITIS (24) Chronic osteomyelitis of cervical spine Code(s): M46.22 - OSTEOMYELITIS OF [place], CERVICAL REGION (25) Conjunctivitis Code(s): H10.9 - UNSPECIFIED CONJUNCTIVITIS (26) Contusion of right knee Code(s): S80.01XA - CONTUSION OF RIGHT KNEE, INITIAL ENCOUNTER Qualifiers: Encounter type: initial encounter Qualified Code(s): S80.01XA - Contusion of right knee, initial encounter (27) DM (diabetes mellitus), type 2 with renal complications Code(s): E11.29 - TYPE 2 DIABETES MELLITUS W OTH DIABETIC KIDNEY COMPLICATION (28) DVT prophylaxis Code(s): [id number] - (29) Dehydration Code(s): E86.0 - DEHYDRATION (30) Depression Code(s): F32.9 - MAJOR DEPRESSIVE DISORDER, SINGLE EPISODE, UNSPECIFIED (31) Diabetes mellitus Code(s): E11.9 - TYPE 2 DIABETES MELLITUS WITHOUT COMPLICATIONS Qualifiers: Diabetes mellitus type: type 2 Diabetes mellitus complication status: with kidney complications Diabetes mellitus complication detail: with chronic kidney disease (32) Diabetes mellitus with foot ulcer and gangrene Code(s): E11.621 - TYPE 2 DIABETES MELLITUS WITH FOOT ULCER; L97.509 - NON- PRESSURE CHRONIC ULCER OTH PRT UNSP FOOT W UNSP SEVERITY (33) Diastolic CHF Code(s): I50.30 - UNSPECIFIED DIASTOLIC (CONGESTIVE) HEART FAILURE (34) ESRD (end stage renal disease) Code(s): N18.6 - END STAGE RENAL DISEASE (35) ESRD (end stage renal disease) on dialysis Code(s): N18.6 - END STAGE RENAL DISEASE; Z99.2 - DEPENDENCE ON RENAL DIALYSIS (36) ESRD needing dialysis Code(s): N18.6 - END STAGE RENAL DISEASE (37) ESRD on hemodialysis Code(s): N18.6 - END STAGE RENAL DISEASE; Z99.2 - DEPENDENCE ON RENAL DIALYSIS (38) Elevated cholesterol Code(s): E78.0 - PURE HYPERCHOLESTEROLEMIA * DO NOT USE * (39) Elevated troponin I level Code(s): R79.89 - OTHER SPECIFIED ABNORMAL FINDINGS OF BLOOD CHEMISTRY (40) Epigastric abdominal pain Code(s): R10.13 - EPIGASTRIC PAIN (41) Epistaxis Code(s): R04.0 - EPISTAXIS (42) Fall Code(s): W19.XXXA - UNSPECIFIED FALL, INITIAL ENCOUNTER (43) Fever Code(s): R50.9 - FEVER, UNSPECIFIED (44) GERD (gastroesophageal reflux disease) Code(s): K21.9 - GASTRO-ESOPHAGEAL REFLUX DISEASE WITHOUT ESOPHAGITIS (45) Gout Code(s): M10.9 - GOUT, UNSPECIFIED (46) HTN (hypertension), malignant Code(s): I10 - ESSENTIAL (PRIMARY) HYPERTENSION (47) Hematoma of left iliopsoas muscle Code(s): S70.12XA - CONTUSION OF LEFT THIGH, INITIAL ENCOUNTER (48) History of WI (myocardial infarction) Code(s): I25.2 - OLD MYOCARDIAL INFARCTION (49) History of coronary artery bypass graft Code(s): Z95.1 - PRESENCE OF AORTOCORONARY BYPASS GRAFT (50) History of hyperkeratosis of skin Code(s): Z87.2 - PERSONAL HISTORY OF DISEASES OF THE SKIN, SUBCU (51) Hyperglycemia Code(s): R73.9 - HYPERGLYCEMIA, UNSPECIFIED (52) Hyperkalemia Code(s): E87.5 - HYPERKALEMIA (53) Hyperlipemia Code(s): E78.5 - HYPERLIPIDEMIA, UNSPECIFIED (54) Hyperphosphatemia Code(s): E83.39 - OTHER DISORDERS OF PHOSPHORUS METABOLISM (55) Hypertension Code(s): I10 - ESSENTIAL (PRIMARY) HYPERTENSION Qualifiers: Hypertension type: essential hypertension Qualified Code(s): I10 - Essential (primary) hypertension (56) Hypomagnesemia Code(s): E83.42 - HYPOMAGNESEMIA (57) Hyponatremia Code(s): E87.1 - HYPO-OSMOLALITY AND HYPONATREMIA (58) Hypotension of hemodialysis Code(s): I95.3 - HYPOTENSION OF HEMODIALYSIS (59) Influenza Code(s): J11.1 - FLU DUE TO UNIDENTIFIED INFLUENZA VIRUS W OTH RESP MANIFEST (60) Knee injury Code(s): S89.90XA - UNSPECIFIED INJURY OF UNSPECIFIED LOWER LEG, INIT ENCNTR Qualifiers: Encounter type: initial encounter Laterality: right Qualified Code(s): S89.91XA - Unspecified injury of right lower leg, initial encounter (61) Knee pain Code(s): M25.569 - PAIN IN UNSPECIFIED KNEE Qualifiers: Chronicity: unspecified Laterality: right Qualified Code(s): M25.561 - Pain in right knee (62) MRSA (methicillin resistant staph aureus) culture positive Code(s): Z22.322 - CARRIER OR SUSPECTED CARRIER OF METHICILLIN RESIS STAPH (63) MRSA bacteremia Code(s): R78.81 - BACTEREMIA (64) MSSA (methicillin susceptible Staphylococcus aureus) infection Code(s): A49.01 - METHICILLIN SUSCEP STAPH INFECTION, UNSP SITE (65) Neck pain Code(s): M54.2 - CERVICALGIA (66) Nondisplaced transverse fracture of right patella, initial encounter for closed fracture Code(s): S82.034A - NONDISPLACED TRANSVERSE FRACTURE OF RIGHT PATELLA, INIT (67) Open wound of left foot Code(s): S91.302A - UNSPECIFIED OPEN WOUND, LEFT FOOT, INITIAL ENCOUNTER Qualifiers: Encounter type: subsequent encounter Qualified Code(s): S91.302D - Unspecified open wound, left foot, subsequent encounter (68) Osteomyelitis Code(s): M86.9 - OSTEOMYELITIS, UNSPECIFIED (69) Osteomyelitis of cervical spine Code(s): M46.22 - OSTEOMYELITIS OF [place], CERVICAL REGION (70) Osteomyelitis of left foot Code(s): M86.9 - OSTEOMYELITIS, UNSPECIFIED (71) Pain Code(s): R52 - PAIN, UNSPECIFIED (72) Pleural effusion Code(s): J90 - PLEURAL EFFUSION, NOT ELSEWHERE CLASSIFIED (73) Pneumonia Code(s): J18.9 - PNEUMONIA, UNSPECIFIED ORGANISM Qualifiers: Pneumonia type: due to unspecified organism (74) Posterior neck pain Code(s): M54.2 - CERVICALGIA (75) Renal failure Code(s): N19 - UNSPECIFIED KIDNEY FAILURE (76) S/P CABG (coronary artery bypass graft) Code(s): Z95.1 - PRESENCE OF AORTOCORONARY BYPASS GRAFT (77) Sepsis Code(s): A41.9 - SEPSIS, UNSPECIFIED ORGANISM Qualifiers: Sepsis type: sepsis due to unspecified organism Qualified Code(s): A41.9 - Sepsis, unspecified organism (78) Shoulder injury Code(s): S49.90XA - UNSP INJURY OF SHOULDER AND UPPER ARM, UNSP ARM, INIT ENCNTR Qualifiers: Encounter type: initial encounter Laterality: unspecified laterality Qualified Code(s): S49.90XA - Unspecified injury of shoulder and upper arm, unspecified arm, initial encounter (79) Stented coronary artery Code(s): Z95.5 - PRESENCE OF CORONARY ANGIOPLASTY IMPLANT AND GRAFT (80) Syncope Code(s): R55 - SYNCOPE AND COLLAPSE Qualifiers: Syncope type: unspecified Qualified Code(s): R55 - Syncope and collapse (81) Systolic and diastolic CHF, chronic Code(s): I50.42 - CHRONIC COMBINED SYSTOLIC AND DIASTOLIC HRT FAIL (82) Uncontrolled diabetes mellitus Code(s): E11.65 - TYPE 2 DIABETES MELLITUS WITH HYPERGLYCEMIA (83) Upper abdominal pain Code(s): R10.10 - UPPER ABDOMINAL PAIN, UNSPECIFIED (84) Urinary tract infection Code(s): N39.0 - URINARY TRACT INFECTION, SITE NOT SPECIFIED (85) Weakness Code(s): R53.1 - WEAKNESS (86) Wound infection Code(s): T14.8 - OTHER INJURY OF UNSPECIFIED BODY REGION * DO NOT USE *; L08.9 - LOCAL INFECTION OF THE SKIN AND SUBCUTANEOUS TISSUE, UNSP Assessment/Plan The patient is a 52 year old male with a significant past medical history of ESRD on HD (TuThSat) with recent LUE fistula revision on Thursday, CAD s/p CABG and stents, CHF, Asthma who presents to the ED with non-productive cough, shortness of breath, chest pain for about a week. He states his cough has been dry and progressing over the week. He states he feel SOB with exertion such that he can not walk across the room without becoming SOB. He reports some associated generalized weakness and body aches. He reports nonradiating, substernal chest pain which is exacerbated with excessive coughing. He also reports abdominal pain which is exacerbated with coughing. He denies the chest pain without coughing. He reportedly had one episode of NBNB vomiting this morning after a coughing episode. Plan feels better today HD for volume removal cont med rx
--- NOTE | 2018-03-07 13:38 | PN ---
Progress Note (short form) - Note Progress Note: ID consult dictated imp/reccd 52 yo man s/p 2 weeks iv antiiboitcs for avf infection (vanco/fortaz) completed on per patient, s/p avf revision on Thursday admitted with cough and cold symptoms and fever white sputum production no diarrhea +myalgia no travel influenza screen negative in ED cxray no changes noted refusing to let his avf site be examined- last packed by VNS on - has appt with vascular surgeon in am fever on , worseing cough and congestion and came to ED yesterday fever 100.9 here reports some improvement with lasix and cough medicine r/o pneumonia would get chest ct no contrast rocephin iv for now urinary antigens rsv antigen s/p infected avf- per renal s/p 2 weeks iv antibioitics refusing dressing to be removed so arm could not be examned would get vascular to f/u blood cultures have been sent as well esrd/hd DM CAD contact isolation for MRSA Problem List - Problems (1) Fever Code(s): R50.9 - FEVER, UNSPECIFIED (2) Cough Code(s): R05 - COUGH (3) Arteriovenous fistula infection Code(s): T82.7XXA - INFECT/INFLM REACT D/T OTH CARDI/VASC DEV/IMPLNT/GRFT, INIT
[2018-03-07] MEDS ORDERED: cefTRIAXone SODIUM 1 GM VIAL ONE (14:11)
[2018-03-07] MEDS ORDERED: DEXTROSE 5%-WATER - 50 ML IVPB ONE (14:11)
[2018-03-07] MEDS: CEFTRIAXONE 1 GM in DEXTROSE 5%-WATER - 50 ML IVPB SCH (14:29)
--- NOTE | 2018-03-07 15:34 | CONS ---
DATE OF CONSULTATION: DATE OF DICTATION: 03/07/2018 REQUESTED BY: Paulo Dunbar MD This is a 52-year-old man, past medical history of diabetes and end-stage renal disease. He is on dialysis. He has a history of multiple MRSA infections in the past. He is currently admitted with progressive cough and fever at home. He reports that 2 weeks ago he had a PermCath placed and this past Thursday, he had his AV fistula revised. He has also, per the renal note, completed 2 weeks of IV antibiotics, vancomycin and Fortaz. Per the patient, he was given antibiotics this past . He had his AV fistula revised on Thursday. He reports having had some fever postoperative at home. He had had already this cough but continued to progress. He has white sputum production. There is no hemoptysis. He had some myalgia as well and he came to the emergency room. He was found to have a fever of 100.9. Chest x-ray was done and was read as negative. He had an influenza screen that was negative as well. I am asked to see him for further recommendations. His past medical history is notable for coronary artery disease, congestive heart failure, hypertension, hyperlipidemia, pneumonia, GERD, GI bleed, end-stage renal disease on dialysis, history of gout and diabetes. Surgical history is notable for left metatarsal amputation. He is blind in his left eye. He has an AV fistula. He is also status post CABG and stent. SOCIAL HISTORY: He lives with his spouse. 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 No history of cigarette or substance use. He has no known drug allergies. His medications at home include tramadol, Renvela, omeprazole, magnesium, lisinopril, insulin, NovoLog, indomethacin, hydralazine, Lasix, ferrous sulfate, Sensipar, cetirizine, eye drops, Lipitor, aspirin, allopurinol, and DuoNeb. REVIEW OF SYSTEMS: He had 1 episode of vomiting secondary to cough. He reports cough is improved today. He denies any diarrhea. He does still make a little bit of urine. PHYSICAL EXAMINATION: General: He is resting comfortably in bed. Vital Signs: Current temperature is 99.1, T-max was 100.9. Pulse 93. Blood pressure 133/79. Respiratory rate 20. Saturating 96% on 2 L. HEENT: He is normocephalic. He is blind in his left eye. He has no thrush. Neck: Supple. Lungs: Diminished lung sounds at the left base. Heart: Regular rate and rhythm. Abdomen: Soft, nontender. Extremities: Without edema. He has a dressing at the site of his AV fistula. He has a PermCath in his chest. He will not permit the dressing to be removed, as he reports he was told by Dr. Bhatti that he would do it in the morning, so I was unable to examine the wound. White count 4.9, hemoglobin 9.5, platelets 239. Chemistries: BUN 21, creatinine 5.2. Influenza screen was done and is negative. Chest x-ray was done as well and is read as unchanged from prior. In summary, this is a 52-year-old man with end-stage renal disease and diabetes, status post 2 weeks of IV antibiotics completed on for AV fistula infection. He had the AV fistula revised on Thursday. He is admitted with cough and cold symptoms as well as fever, with a negative influenza screen. I would suggest at this time we get a CAT scan of his chest without contrast, Rocephin IV for now, urinary antigens, as well as RSV antigen. Number 2, status post infected AV fistula. Per Renal, he has completed 2 weeks antibiotics. He refused dressing to be removed so arm could not be examined. I would get Vascular to follow up, as he did not permit us to look at his arm. Blood cultures have been sent as well. He has end-stage renal disease, on dialysis, which he had yesterday, history of diabetes, coronary artery disease. Would maintain contact isolation for MRSA. Further recommendations to follow. STEFANY HEMPHILL M.D. [id number]
[2018-03-07] MEDS: ALBUTEROL SO4 2.5/IPRATROPIUM 0.5 INH SOL 3 ML VIAL.NEB. NEB PRN (17:52)
[2018-03-07] MEDS: ATORVASTATIN CA 80 MG TABLET (FP) PO SCH (21:26)
[2018-03-07] MEDS: LATANOPROST 0.005% OPHTH SOLN 2.5ML BOTTLE OS SCH (22:52)
[2018-03-08] MEDS: hydrALAZINE HCL 50 MG TABLET (FP) PO SCH ×3 (05:32→21:42)
[2018-03-08] MEDS: MAGNESIUM OXIDE 400 MG TABLET (FP) PO SCH ×3 (05:32→21:42)
[2018-03-08] MEDS: BRIMONIDINE TARTRATE 0.15% OPHTHALMIC 5 ML BOTTLE OS SCH ×3 (05:33→21:44)
[2018-03-08] MEDS: INSULIN SLIDING SCALE (NOVOLOG) 1 VIAL SQ SCH ×4 (06:09→22:17)
[2018-03-08] MEDS ORDERED: cefTRIAXone SODIUM 1 GM VIAL ONE (09:41)
[2018-03-08] MEDS ORDERED: DEXTROSE 5%-WATER - 50 ML IVPB ONE (09:41)
[2018-03-08] MEDS: ASPIRIN 81 MG CHEWABLE TABLETS PO SCH (10:10)
[2018-03-08] MEDS: FUROSEMIDE 40 MG TABLET (FP) PO SCH (10:10)
[2018-03-08] MEDS: LISINOPRIL 5 MG TABLET (FP) PO SCH (10:11)
[2018-03-08] MEDS: PANTOPRAZOLE 40 MG TABLET (FP) PO SCH (10:11)
[2018-03-08] MEDS: CEFTRIAXONE 1 GM in DEXTROSE 5%-WATER - 50 ML IVPB SCH (10:11)
[2018-03-08] MEDS: ALLOPURINOL 100 MG TABLET (FP) PO SCH (10:11)
[2018-03-08] MEDS: SEVELAMER CARBONATE 800 MG TAB (FP) PO SCH ×3 (10:11→17:32)
--- NOTE | 2018-03-08 10:51 | PN ---
Progress Note, Physician Chief Complaint: in bed less cough no new c/o cultures negative so far on IV ceftriaxone for HD in am - Current Medication List Current Medications: Active Medications Acetaminophen (Tylenol -) 650 mg PO Q6H PRN PRN Reason: PAIN LEVEL 1-5 Last Admin: 03/06/18 22:36 Dose: 650 mg Acetaminophen/Codeine Phosphate (Tylenol # 3 -) 2 tab PO Q6H PRN PRN Reason: PAIN LEVEL 6-10 Albuterol/Ipratropium (Duoneb -) 1 amp NEB Q6H PRN PRN Reason: SHORTNESS OF BREATH Last Admin: 03/07/18 17:52 Dose: 1 amp Allopurinol (Zyloprim -) 100 mg PO DAILY [facility] Last Admin: 03/08/18 10:11 Dose: 100 mg Aspirin (Asa -) 81 mg PO DAILY [facility] Last Admin: 03/08/18 10:10 Dose: 81 mg Atorvastatin Calcium (Lipitor -) 80 mg PO HS [facility] Last Admin: 03/07/18 21:26 Dose: 80 mg Brimonidine Tartrate (Alphagan 0.15% -) 1 drop OS TID [facility] Last Admin: 03/08/18 05:33 Dose: 1 drop Cinacalcet (Sensipar -) 30 mg PO DAILY [facility] Last Admin: 03/07/18 09:17 Dose: 30 mg Furosemide (Lasix -) 80 mg PO DAILY [facility] Last Admin: 03/08/18 10:10 Dose: 80 mg Guaifenesin (Robitussin Dm -) 10 ml PO Q4H PRN PRN Reason: COUGH Last Admin: 03/07/18 06:37 Dose: 10 ml Hydralazine HCl (Apresoline -) 50 mg PO TID [facility] Last Admin: 03/08/18 05:32 Dose: 50 mg Ceftriaxone Sodium 1 gm/ (Dextrose) 50 mls @ 100 mls/hr IVPB DAILY [facility]; Protocol Last Admin: 03/08/18 10:11 Dose: 100 mls/hr Insulin Aspart (Novolog Vial Sliding Scale -) 1 vial SQ ACHS [facility]; Protocol Last Admin: 03/08/18 06:09 Dose: 6 units Latanoprost (Xalatan 0.005% Eye Drops -) 1 drop OS HS [facility] Last Admin: 03/07/18 22:52 Dose: 1 drop Lisinopril (Prinivil) 5 mg PO DAILY [facility] Last Admin: 03/08/18 10:11 Dose: 5 mg Magnesium Oxide (Mag-Ox -) 400 mg PO TID [facility] Last Admin: 03/08/18 05:32 Dose: 400 mg Pantoprazole Sodium (Protonix -) 40 mg PO DAILY [facility] Last Admin: 03/08/18 10:11 Dose: 40 mg Sevelamer Carbonate (Renvela -) 800 mg PO TIDCM [facility] Last Admin: 03/08/18 10:11 Dose: 800 mg - Objective Vital Signs: Vital Signs Temperature 98 F 03/08/18 10:00 Pulse Rate 92 H 03/08/18 10:00 Respiratory Rate 20 03/08/18 10:00 Blood Pressure 124/75 03/08/18 10:00 O2 Sat by Pulse Oximetry (%) 95 03/07/18 21:54 Constitutional: Yes: No Distress, Calm Eyes: Yes: Conjunctiva Clear HENT: Yes: Atraumatic Neck: Yes: Supple Cardiovascular: Yes: Regular Rate and Rhythm Respiratory: Yes: CTA Bilaterally Gastrointestinal: Yes: Soft. No: Tenderness Genitourinary: No: CVA Tenderness - Left, CVA Tenderness - Right Musculoskeletal: No: Joint Stiffness, Joint Swelling Extremities: Yes: Amputation. No: Cold, Cool Edema: No Integumentary: No: Rash, Venous Stasis Changes Wound/Incision: Yes: Dressing Dry and Intact Neurological: Yes: WNL, Alert, Oriented ...Motor Strength: WNL Psychiatric: Yes: WNL, Alert, Oriented. No: Agitated Labs: CBC, BMP 03/07/18 06:30 03/07/18 06:30 - ....Imaging Other: Report Reviewed Assessment/Plan This is a 53 year old gentleman with hx of ESRD on HD, Hypertension, DM , CAD s/p CABG who presented to the ED with complaints of fever, sob and productive cough and admitted with r/o PNA vs viral syndrome. Tmax at home was 101. Last dialysis was w/o complication. S/p recent AVF excision by vascular for pseduoanerysm. He was on Abx recently for suspected AVF infection. All cultures from recent admission negative apart from wound culture that showed MRSA. Has a permacath in place now. f/u with ID for further ATB; blood cx sent dyalsis per renal cardiology f/u falls DVT decubs PFX d/w pt and staff
[2018-03-08] MEDS: CINACALCET HCL 30 MG TAB (FP) PO SCH (12:17)
--- NOTE | 2018-03-08 12:30 | PN ---
Progress Note (short form) - Note Progress Note: Renal follow up for ESRD on HD Pt seen and examined at the bedside awake and alert no acute complaints denies any sob, cp, abd pain, fever, chills had dialysis on Thursday Vital Signs Temperature 98 F 03/08/18 10:00 Pulse Rate 92 H 03/08/18 10:00 Respiratory Rate 20 03/08/18 10:00 Blood Pressure 124/75 03/08/18 10:00 O2 Sat by Pulse Oximetry (%) 95 03/08/18 09:00 Intake & Output 03/05/18 03/06/18 03/07/18 03/08/18 23:59 23:59 23:59 23:59 Intake Total 790 990 100 Output Total 20 Balance 790 970 100 Weight 92.533 kg 92.533 kg NAD awake and alert CTA trace to 1+ LE edema CBC, BMP 03/07/18 06:30 03/07/18 06:30 Current Medications Acetaminophen (Tylenol -) 650 mg PO Q6H PRN PRN Reason: PAIN LEVEL 1-5 Last Admin: 03/06/18 22:36 Dose: 650 mg Acetaminophen/Codeine Phosphate (Tylenol # 3 -) 2 tab PO Q6H PRN PRN Reason: PAIN LEVEL 6-10 Albuterol/Ipratropium (Duoneb -) 1 amp NEB Q6H PRN PRN Reason: SHORTNESS OF BREATH Last Admin: 03/07/18 17:52 Dose: 1 amp Allopurinol (Zyloprim -) 100 mg PO DAILY [facility] Last Admin: 03/08/18 10:11 Dose: 100 mg Aspirin (Asa -) 81 mg PO DAILY [facility] Last Admin: 03/08/18 10:10 Dose: 81 mg Atorvastatin Calcium (Lipitor -) 80 mg PO HS [facility] Last Admin: 03/07/18 21:26 Dose: 80 mg Brimonidine Tartrate (Alphagan 0.15% -) 1 drop OS TID [facility] Last Admin: 03/08/18 05:33 Dose: 1 drop Cinacalcet (Sensipar -) 30 mg PO DAILY [facility] Last Admin: 03/08/18 12:17 Dose: 30 mg Furosemide (Lasix -) 80 mg PO DAILY [facility] Last Admin: 03/08/18 10:10 Dose: 80 mg Guaifenesin (Robitussin Dm -) 10 ml PO Q4H PRN PRN Reason: COUGH Last Admin: 03/07/18 06:37 Dose: 10 ml Hydralazine HCl (Apresoline -) 50 mg PO TID [facility] Last Admin: 03/08/18 05:32 Dose: 50 mg Ceftriaxone Sodium 1 gm/ (Dextrose) 50 mls @ 100 mls/hr IVPB DAILY [facility]; Protocol Last Admin: 03/08/18 10:11 Dose: 100 mls/hr Insulin Aspart (Novolog Vial Sliding Scale -) 1 vial SQ ACHS [facility]; Protocol Last Admin: 03/08/18 12:16 Dose: 6 units Latanoprost (Xalatan 0.005% Eye Drops -) 1 drop OS HS [facility] Last Admin: 03/07/18 22:52 Dose: 1 drop Lisinopril (Prinivil) 5 mg PO DAILY [facility] Last Admin: 03/08/18 10:11 Dose: 5 mg Magnesium Oxide (Mag-Ox -) 400 mg PO TID [facility] Last Admin: 03/08/18 05:32 Dose: 400 mg Pantoprazole Sodium (Protonix -) 40 mg PO DAILY [facility] Last Admin: 03/08/18 10:11 Dose: 40 mg Sevelamer Carbonate (Renvela -) 800 mg PO TIDCM [facility] Last Admin: 03/08/18 10:11 Dose: 800 mg 58 year old gentleman with hx of ESRD on HD (TTS), Hypertension, DM, CAD s/p CABG who presented to the ED with complaints of fever, sob and productive cough and admitted with r/o PNA vs viral syndrome. #ESRD on HD #Cough with fever w/o Xray evidence of PNA #Recent AVF infection s/p excision #DM #Hypertension #CKD related Anemia no acute indication for dialysis today CT of the chest showed a fluid collection, ? need for aspiration continue emperic abx as per ID Completed course of Abx as an outpatient Will consult vascular surgery to follow up on AVF infection that required excision Antwan Hurley DO
--- NOTE | 2018-03-08 14:39 | PN ---
Progress Note, Physician History of Present Illness: The patient is a 52 year old male with a significant past medical history of ESRD on HD ([facility]) with recent LUE fistula revision on Thursday, CAD s/p CABG and stents, CHF, Asthma who presents to the ED with non-productive cough, shortness of breath, chest pain for about a week. He states his cough has been dry and progressing over the week. He states he feel SOB with exertion such that he can not walk across the room without becoming SOB. He reports some associated generalized weakness and body aches. He reports nonradiating, substernal chest pain which is exacerbated with excessive coughing. He also reports abdominal pain which is exacerbated with coughing. He denies the chest pain without coughing. He reportedly had one episode of NBNB vomiting this morning after a coughing episode. - Current Medication List Current Medications: Active Medications Acetaminophen (Tylenol -) 650 mg PO Q6H PRN PRN Reason: PAIN LEVEL 1-5 Last Admin: 03/06/18 22:36 Dose: 650 mg Acetaminophen/Codeine Phosphate (Tylenol # 3 -) 2 tab PO Q6H PRN PRN Reason: PAIN LEVEL 6-10 Albuterol/Ipratropium (Duoneb -) 1 amp NEB Q6H PRN PRN Reason: SHORTNESS OF BREATH Last Admin: 03/07/18 17:52 Dose: 1 amp Allopurinol (Zyloprim -) 100 mg PO DAILY [facility] Last Admin: 03/08/18 10:11 Dose: 100 mg Aspirin (Asa -) 81 mg PO DAILY [facility] Last Admin: 03/08/18 10:10 Dose: 81 mg Atorvastatin Calcium (Lipitor -) 80 mg PO HS [facility] Last Admin: 03/07/18 21:26 Dose: 80 mg Brimonidine Tartrate (Alphagan 0.15% -) 1 drop OS TID [facility] Last Admin: 03/08/18 14:22 Dose: 1 drop Cinacalcet (Sensipar -) 30 mg PO DAILY [facility] Last Admin: 03/08/18 12:17 Dose: 30 mg Furosemide (Lasix -) 80 mg PO DAILY [facility] Last Admin: 03/08/18 10:10 Dose: 80 mg Guaifenesin (Robitussin Dm -) 10 ml PO Q4H PRN PRN Reason: COUGH Last Admin: 03/07/18 06:37 Dose: 10 ml Hydralazine HCl (Apresoline -) 50 mg PO TID [facility] Last Admin: 03/08/18 14:22 Dose: 50 mg Ceftriaxone Sodium 1 gm/ (Dextrose) 50 mls @ 100 mls/hr IVPB DAILY [facility]; Protocol Last Admin: 03/08/18 10:11 Dose: 100 mls/hr Insulin Aspart (Novolog Vial Sliding Scale -) 1 vial SQ ACHS [facility]; Protocol Last Admin: 03/08/18 12:16 Dose: 6 units Latanoprost (Xalatan 0.005% Eye Drops -) 1 drop OS HS [facility] Last Admin: 03/07/18 22:52 Dose: 1 drop Lisinopril (Prinivil) 5 mg PO DAILY [facility] Last Admin: 03/08/18 10:11 Dose: 5 mg Magnesium Oxide (Mag-Ox -) 400 mg PO TID [facility] Last Admin: 03/08/18 14:22 Dose: 400 mg Pantoprazole Sodium (Protonix -) 40 mg PO DAILY [facility] Last Admin: 03/08/18 10:11 Dose: 40 mg Sevelamer Carbonate (Renvela -) 800 mg PO TIDCM [facility] Last Admin: 03/08/18 14:23 Dose: 800 mg - Objective Vital Signs: Vital Signs Temperature 98.4 F 03/08/18 14:00 Pulse Rate 88 03/08/18 14:00 Respiratory Rate 20 03/08/18 14:00 Blood Pressure 144/78 03/08/18 14:00 O2 Sat by Pulse Oximetry (%) 95 03/08/18 09:00 Eyes: Yes: WNL, Conjunctiva Clear, EOM Intact HENT: Yes: WNL, Atraumatic, Normocephalic Neck: Yes: WNL, Supple, Trachea Midline Cardiovascular: Yes: WNL, Regular Rate and Rhythm Respiratory: Yes: WNL, Regular, CTA Bilaterally Gastrointestinal: Yes: WNL, Normal Bowel Sounds Genitourinary: Yes: WNL Musculoskeletal: Yes: WNL Extremities: Yes: Amputation Edema: No Integumentary: Yes: WNL Neurological: Yes: WNL, Alert, Oriented ...Motor Strength: WNL Psychiatric: Yes: WNL Labs: CBC, BMP 03/07/18 06:30 03/07/18 06:30 Problem List - Problems (1) Asthma Code(s): J45.909 - UNSPECIFIED ASTHMA, UNCOMPLICATED (2) CHF exacerbation Code(s): I50.9 - HEART FAILURE, UNSPECIFIED (3) Chest pain Code(s): R07.9 - CHEST PAIN, UNSPECIFIED (4) Cough Code(s): R05 - COUGH (5) Abdominal pain Code(s): R10.9 - UNSPECIFIED ABDOMINAL PAIN Qualifiers: Abdominal location: right lower quadrant Qualified Code(s): R10.31 - Right lower quadrant pain (6) 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A (7) Accidental fall Code(s): W19.XXXA - UNSPECIFIED FALL, INITIAL ENCOUNTER Qualifiers: Encounter type: initial encounter Qualified Code(s): W19.XXXA - Unspecified fall, initial encounter (8) Acute gastroenteritis Code(s): K52.9 - NONINFECTIVE GASTROENTERITIS AND COLITIS, UNSPECIFIED (9) Acute hyperkalemia Code(s): E87.5 - HYPERKALEMIA (10) Anemia Code(s): D64.9 - ANEMIA, UNSPECIFIED (11) Anemia in ESRD (end-stage renal disease) Code(s): N18.6 - END STAGE RENAL DISEASE; D63.1 - ANEMIA IN CHRONIC KIDNEY DISEASE (12) Atypical chest pain Code(s): R07.89 - OTHER CHEST PAIN (13) Back pain Code(s): M54.9 - DORSALGIA, UNSPECIFIED (14) Bacteremia Code(s): R78.81 - BACTEREMIA (15) Bacteremia due to Gram-positive bacteria Code(s): A49.9 - BACTERIAL INFECTION, UNSPECIFIED (16) Bleeding Code(s): R58 - HEMORRHAGE, NOT ELSEWHERE CLASSIFIED (17) CAD (coronary artery disease) Code(s): I25.10 - ATHSCL HEART DISEASE OF [place] CORONARY ARTERY W/O ANG PCTRS (18) CHF (congestive heart failure) Code(s): I50.9 - HEART FAILURE, UNSPECIFIED (19) COPD (chronic obstructive pulmonary disease) Code(s): J44.9 - CHRONIC OBSTRUCTIVE PULMONARY DISEASE, UNSPECIFIED (20) COPD exacerbation Code(s): J44.1 - CHRONIC OBSTRUCTIVE PULMONARY DISEASE W (ACUTE) EXACERBATION (21) CRF (chronic renal failure) Code(s): N18.9 - CHRONIC KIDNEY DISEASE, UNSPECIFIED (22) Chest pain, midsternal Code(s): R07.89 - OTHER CHEST PAIN (23) Chronic GERD Code(s): K21.9 - GASTRO-ESOPHAGEAL REFLUX DISEASE WITHOUT ESOPHAGITIS (24) Chronic osteomyelitis of cervical spine Code(s): M46.22 - OSTEOMYELITIS OF [place], CERVICAL REGION (25) Conjunctivitis Code(s): H10.9 - UNSPECIFIED CONJUNCTIVITIS (26) Contusion of right knee Code(s): S80.01XA - CONTUSION OF RIGHT KNEE, INITIAL ENCOUNTER Qualifiers: Encounter type: initial encounter Qualified Code(s): S80.01XA - Contusion of right knee, initial encounter (27) DM (diabetes mellitus), type 2 with renal complications Code(s): E11.29 - TYPE 2 DIABETES MELLITUS W OTH DIABETIC KIDNEY COMPLICATION (28) DVT prophylaxis Code(s): [id number] - (29) Dehydration Code(s): E86.0 - DEHYDRATION (30) Depression Code(s): F32.9 - MAJOR DEPRESSIVE DISORDER, SINGLE EPISODE, UNSPECIFIED (31) Diabetes mellitus Code(s): E11.9 - TYPE 2 DIABETES MELLITUS WITHOUT COMPLICATIONS Qualifiers: Diabetes mellitus type: type 2 Diabetes mellitus complication status: with kidney complications Diabetes mellitus complication detail: with chronic kidney disease (32) Diabetes mellitus with foot ulcer and gangrene Code(s): E11.621 - TYPE 2 DIABETES MELLITUS WITH FOOT ULCER; L97.509 - NON- PRESSURE CHRONIC ULCER OTH PRT UNSP FOOT W UNSP SEVERITY (33) Diastolic CHF Code(s): I50.30 - UNSPECIFIED DIASTOLIC (CONGESTIVE) HEART FAILURE (34) ESRD (end stage renal disease) Code(s): N18.6 - END STAGE RENAL DISEASE (35) ESRD (end stage renal disease) on dialysis Code(s): N18.6 - END STAGE RENAL DISEASE; Z99.2 - DEPENDENCE ON RENAL DIALYSIS (36) ESRD needing dialysis Code(s): N18.6 - END STAGE RENAL DISEASE (37) ESRD on hemodialysis Code(s): N18.6 - END STAGE RENAL DISEASE; Z99.2 - DEPENDENCE ON RENAL DIALYSIS (38) Elevated cholesterol Code(s): E78.0 - PURE HYPERCHOLESTEROLEMIA * DO NOT USE * (39) Elevated troponin I level Code(s): R79.89 - OTHER SPECIFIED ABNORMAL FINDINGS OF BLOOD CHEMISTRY (40) Epigastric abdominal pain Code(s): R10.13 - EPIGASTRIC PAIN (41) Epistaxis Code(s): R04.0 - EPISTAXIS (42) Fall Code(s): W19.XXXA - UNSPECIFIED FALL, INITIAL ENCOUNTER (43) Fever Code(s): R50.9 - FEVER, UNSPECIFIED (44) GERD (gastroesophageal reflux disease) Code(s): K21.9 - GASTRO-ESOPHAGEAL REFLUX DISEASE WITHOUT ESOPHAGITIS (45) Gout Code(s): M10.9 - GOUT, UNSPECIFIED (46) HTN (hypertension), malignant Code(s): I10 - ESSENTIAL (PRIMARY) HYPERTENSION (47) Hematoma of left iliopsoas muscle Code(s): S70.12XA - CONTUSION OF LEFT THIGH, INITIAL ENCOUNTER (48) History of KS (myocardial infarction) Code(s): I25.2 - OLD MYOCARDIAL INFARCTION (49) History of coronary artery bypass graft Code(s): Z95.1 - PRESENCE OF AORTOCORONARY BYPASS GRAFT (50) History of hyperkeratosis of skin Code(s): Z87.2 - PERSONAL HISTORY OF DISEASES OF THE SKIN, SUBCU (51) Hyperglycemia Code(s): R73.9 - HYPERGLYCEMIA, UNSPECIFIED (52) Hyperkalemia Code(s): E87.5 - HYPERKALEMIA (53) Hyperlipemia Code(s): E78.5 - HYPERLIPIDEMIA, UNSPECIFIED (54) Hyperphosphatemia Code(s): E83.39 - OTHER DISORDERS OF PHOSPHORUS METABOLISM (55) Hypertension Code(s): I10 - ESSENTIAL (PRIMARY) HYPERTENSION Qualifiers: Hypertension type: essential hypertension Qualified Code(s): I10 - Essential (primary) hypertension (56) Hypomagnesemia Code(s): E83.42 - HYPOMAGNESEMIA (57) Hyponatremia Code(s): E87.1 - HYPO-OSMOLALITY AND HYPONATREMIA (58) Hypotension of hemodialysis Code(s): I95.3 - HYPOTENSION OF HEMODIALYSIS (59) Influenza Code(s): J11.1 - FLU DUE TO UNIDENTIFIED INFLUENZA VIRUS W OTH RESP MANIFEST (60) Knee injury Code(s): S89.90XA - UNSPECIFIED INJURY OF UNSPECIFIED LOWER LEG, INIT ENCNTR Qualifiers: Encounter type: initial encounter Laterality: right Qualified Code(s): S89.91XA - Unspecified injury of right lower leg, initial encounter (61) Knee pain Code(s): M25.569 - PAIN IN UNSPECIFIED KNEE Qualifiers: Chronicity: unspecified Laterality: right Qualified Code(s): M25.561 - Pain in right knee (62) MRSA (methicillin resistant staph aureus) culture positive Code(s): Z22.322 - CARRIER OR SUSPECTED CARRIER OF METHICILLIN RESIS STAPH (63) MRSA bacteremia Code(s): R78.81 - BACTEREMIA (64) MSSA (methicillin susceptible Staphylococcus aureus) infection Code(s): A49.01 - METHICILLIN SUSCEP STAPH INFECTION, UNSP SITE (65) Neck pain Code(s): M54.2 - CERVICALGIA (66) Nondisplaced transverse fracture of right patella, initial encounter for closed fracture Code(s): S82.034A - NONDISPLACED TRANSVERSE FRACTURE OF RIGHT PATELLA, INIT (67) Open wound of left foot Code(s): S91.302A - UNSPECIFIED OPEN WOUND, LEFT FOOT, INITIAL ENCOUNTER Qualifiers: Encounter type: subsequent encounter Qualified Code(s): S91.302D - Unspecified open wound, left foot, subsequent encounter (68) Osteomyelitis Code(s): M86.9 - OSTEOMYELITIS, UNSPECIFIED (69) Osteomyelitis of cervical spine Code(s): M46.22 - OSTEOMYELITIS OF [place], CERVICAL REGION (70) Osteomyelitis of left foot Code(s): M86.9 - OSTEOMYELITIS, UNSPECIFIED (71) Pain Code(s): R52 - PAIN, UNSPECIFIED (72) Pleural effusion Code(s): J90 - PLEURAL EFFUSION, NOT ELSEWHERE CLASSIFIED (73) Pneumonia Code(s): J18.9 - PNEUMONIA, UNSPECIFIED ORGANISM Qualifiers: Pneumonia type: due to unspecified organism (74) Posterior neck pain Code(s): M54.2 - CERVICALGIA (75) Renal failure Code(s): N19 - UNSPECIFIED KIDNEY FAILURE (76) S/P CABG (coronary artery bypass graft) Code(s): Z95.1 - PRESENCE OF AORTOCORONARY BYPASS GRAFT (77) Sepsis Code(s): A41.9 - SEPSIS, UNSPECIFIED ORGANISM Qualifiers: Sepsis type: sepsis due to unspecified organism Qualified Code(s): A41.9 - Sepsis, unspecified organism (78) Shoulder injury Code(s): S49.90XA - UNSP INJURY OF SHOULDER AND UPPER ARM, UNSP ARM, INIT ENCNTR Qualifiers: Encounter type: initial encounter Laterality: unspecified laterality Qualified Code(s): S49.90XA - Unspecified injury of shoulder and upper arm, unspecified arm, initial encounter (79) Stented coronary artery Code(s): Z95.5 - PRESENCE OF CORONARY ANGIOPLASTY IMPLANT AND GRAFT (80) Syncope Code(s): R55 - SYNCOPE AND COLLAPSE Qualifiers: Syncope type: unspecified Qualified Code(s): R55 - Syncope and collapse (81) Systolic and diastolic CHF, chronic Code(s): I50.42 - CHRONIC COMBINED SYSTOLIC AND DIASTOLIC HRT FAIL (82) Uncontrolled diabetes mellitus Code(s): E11.65 - TYPE 2 DIABETES MELLITUS WITH HYPERGLYCEMIA (83) Upper abdominal pain Code(s): R10.10 - UPPER ABDOMINAL PAIN, UNSPECIFIED (84) Urinary tract infection Code(s): N39.0 - URINARY TRACT INFECTION, SITE NOT SPECIFIED (85) Weakness Code(s): R53.1 - WEAKNESS (86) Wound infection Code(s): T14.8 - OTHER INJURY OF UNSPECIFIED BODY REGION * DO NOT USE *; L08.9 - LOCAL INFECTION OF THE SKIN AND SUBCUTANEOUS TISSUE, UNSP Assessment/Plan The patient is a 52 year old male with a significant past medical history of ESRD on HD ([facility]) with recent LUE fistula revision on Thursday, CAD s/p CABG and stents, CHF, Asthma who presents to the ED with non-productive cough, shortness of breath, chest pain for about a week. He states his cough has been dry and progressing over the week. He states he feel SOB with exertion such that he can not walk across the room without becoming SOB. He reports some associated generalized weakness and body aches. He reports nonradiating, substernal chest pain which is exacerbated with excessive coughing. He also reports abdominal pain which is exacerbated with coughing. He denies the chest pain without coughing. He reportedly had one episode of NBNB vomiting this morning after a coughing episode. Plan feels better today HD for volume removal cont med rx
--- NOTE | 2018-03-08 14:50 | CON.PULM ---
Consult Consult Specialty:: PULMONARY Referred by:: Dr. Dunbar Reason for Consultation:: pleural effusion - History of Present Illness Chief Complaint: shortness of breath History of Present Illness: 52yo male with h/o HTN, DM, CAD s/p CABG, ESRD on HD who was admitted with worsening shortnes of breath and cough. Denies chest pain or discomfort. Did have a fever to 101 at home. +nonproductive cough and wheezing. Was recently on antibiotics for suspected AVF infection. also sick but symptoms started after his. +body aches and nasal congestion. CT chest done without acute findings. Left pleural effusion appears chronic and unchanged. He is a remote smoker. - History Source History Provided By: Patient, Family Member, Medical Record Limitations to Obtaining History: No Limitations - Past Medical History Cardio/Vascular: Yes: CAD, CHF (normal ejection fraction; poor LV compliance; no valvular abnormalities), HTN, Hyperlipdemia Pulmonary: Yes: Asthma, Pneumonia Gastrointestinal: Yes: GERD, GI Bleed Renal/: Yes: Renal Failure, Hemodialysis (ESRD on HD MWF via L arm AVF) Psych: Yes: Anxiety Musculoskeletal: Yes: Other (left metatarsal amputation) Rheumatology: Yes: Gout Endocrine: Yes: Diabetes Mellitus Additional Medical History: as above in HPI; L eye blindness; on renal transplant list at [facility]. 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 History of Recent Travel: No Home Medications - Allergies Allergies/Adverse Reactions: Allergies Allergy/AdvReac Type Severity Reaction Status Date / Time No Known Drug Allergies Allergy Verified 03/05/18 20:10 - Home Medications Home Medications: Ambulatory Orders Allopurinol [Zyloprim -] 100 mg PO DAILY 11/28/16 Atorvastatin Ca [Lipitor] 80 mg PO HS 11/28/16 Cinacalcet HCl [Sensipar] 30 mg PO DAILY 11/28/16 Ferrous Sulfate 325 mg PO DAILY 11/28/16 Furosemide [Lasix] 80 mg PO DAILY 11/28/16 Hydralazine HCl 50 mg PO TID 11/28/16 Lisinopril 5 mg PO DAILY 11/28/16 Omeprazole 20 mg PO DAILY 11/28/16 Sevelamer Carbonate [Renvela -] 800 mg NR TID 11/28/16 Aspirin [Jeremiah Chewable Aspirin] 81 mg PO DAILY 10/26/17 Cetirizine HCl 10 mg PO DAILY 10/26/17 Insulin Detemir [Levemir Flextouch] 15 units SQ HS 10/26/17 Acetaminophen W/ Codeine #3 [Tylenol # 3 -] 1 tab PO Q12H PRN tablet MDD 2 09/09 Albuterol 2.5/Ipratropium 0.5 [Duoneb -] 1 amp NEB Q6H PRN amp 10/30/17 Bimatoprost [Lumigan] 1 drop OS HS 02/02/18 Brimonidine Tartrate [Alphagan 0.15% -] 1 drop OS TID 02/02/18 Indomethacin 50 mg PO BID 02/02/18 Insulin Aspart [Novolog] 8 unit SQ AC 02/02/18 Magnesium Oxide [Magnesium] 400 mg PO TID 02/02/18 Tramadol HCl/Acetaminophen [Tramadol-Acetaminophn 37.5-325] 1 each PO BID Family Disease History - Family Disease History Family Disease History: Diabetes: Father, Mother, Other: Father, Mother Review of Systems - Review of Systems Constitutional: reports: Fever, Malaise, Weakness Eyes: denies: Recent Change in Vision HENT: denies: Nasal Congestion, Throat Pain Neck: denies: Stiffness, Tenderness Cardiovascular: reports: Shortness of Breath. denies: Chest Pain, Palpitations Respiratory: reports: Cough, Wheezing. denies: Hemoptysis Gastrointestinal: denies: Abdominal Pain, Nausea, Vomiting Genitourinary: denies: Dysuria, Hematuria Neurological: denies: Dizziness, Headache Physical Exam Vital Sings: Vital Signs Temperature 98.4 F 03/08/18 14:00 Pulse Rate 88 03/08/18 14:00 Respiratory Rate 20 03/08/18 14:00 Blood Pressure 144/78 03/08/18 14:00 O2 Sat by Pulse Oximetry (%) 95 03/08/18 09:00 Constitutional: Yes: Calm Eyes: Yes: Conjunctiva Clear, EOM Intact HENT: Yes: Atraumatic, Normocephalic Neck: Yes: Supple, Trachea Midline Cardiovascular: Yes: Regular Rate and Rhythm Respiratory: Yes: Diminished (decreased breath sounds left base) ...Clubbing: No Gastrointestinal: Yes: Normal Bowel Sounds, Soft. No: Tenderness Edema: No Neurological: Yes: Alert, Oriented Labs: CBC, BMP 03/07/18 06:30 03/07/18 06:30 Imaging - Results Chest X-ray: Report Reviewed, Image Reviewed Cat Scan: Report Reviewed, Image Reviewed (no infiltrates, chronic left effusion ) Problem List - Problems (1) Acute bronchitis Code(s): J20.9 - ACUTE BRONCHITIS, UNSPECIFIED (2) CAD (coronary artery disease) Code(s): I25.10 - ATHSCL HEART DISEASE OF [place] CORONARY ARTERY W/O ANG PCTRS (3) COPD (chronic obstructive pulmonary disease) Code(s): J44.9 - CHRONIC OBSTRUCTIVE PULMONARY DISEASE, UNSPECIFIED (4) DM (diabetes mellitus), type 2 with renal complications Code(s): E11.29 - TYPE 2 DIABETES MELLITUS W OTH DIABETIC KIDNEY COMPLICATION (5) ESRD (end stage renal disease) on dialysis Code(s): N18.6 - END STAGE RENAL DISEASE; Z99.2 - DEPENDENCE ON RENAL DIALYSIS (6) Hypertension Code(s): I10 - ESSENTIAL (PRIMARY) HYPERTENSION Qualifiers: Hypertension type: essential hypertension Qualified Code(s): I10 - Essential (primary) hypertension (7) Pleural effusion Code(s): J90 - PLEURAL EFFUSION, NOT ELSEWHERE CLASSIFIED Assessment/Plan Acute Bronchitis Left Pleural Effusion - Chronic CAD s/p CABG LV Diastolic Dysfunction ESRD on HD HTN DM - antibiotics per ID - f/u cultures - O2 to keep SpO2 >90% - HD per renal - effusion on imaging is unchanged from prior with pleural thickening and calcifications, would not intervene at this time - DVT prophylaxis Thank you for this consult Michael Salinas MD
--- NOTE | 2018-03-08 15:15 | PN ---
Progress Note (short form) - Note Progress Note: feels well less cough Vital Signs Period Temp Pulse Resp BP Sys/Henao Pulse Ox Last 24 Hr 98 F-98.7 F 84-98 20-20 124-154/73-93 95-95 cor-rrr lungs scattered rhonchi abd soft,nt ext dressing Left arm CBC, BMP 03/07/18 06:30 03/07/18 06:30 Microbiology 03/07/18 17:00 Urine - Urine Clean Catch Legionella Antigen - Final-negative 03/07/18 17:00 Urine - Urine Clean Catch Streptococcus pneumoniae Antigen ( M - Final-negative 03/07/18 10:03 Urine - Urine - Catheterized Urine Culture - Final NO GROWTH OBTAINED 03/07/18 06:30 Blood - Peripheral Venous Blood Culture - Preliminary NO GROWTH OBTAINED AFTER 24 HOURS, INCUBATION TO CONTINUE FOR 4 DAYS. 03/07/18 07:10 Blood - Peripheral Venous Blood Culture - Preliminary NO GROWTH OBTAINED AFTER 24 HOURS, INCUBATION TO CONTINUE FOR [address]- unchanged rsv antigen negative a/p bronchitis- no signs pneumonia rocephin day #2 will switch to po ceftin 500 mg daily for 5 days s/p infected avf- per renal s/p 2 weeks iv antibioitics refusing dressing to be removed so arm could not be examned would get vascular to f/u blood cultures have been sent as well and are negative esrd/hd DM CAD contact isolation for MRSA please call back if needed Problem List - Problems (1) Fever Code(s): R50.9 - FEVER, UNSPECIFIED (2) Cough Code(s): R05 - COUGH (3) Arteriovenous fistula infection Code(s): T82.7XXA - INFECT/INFLM REACT D/T OTH CARDI/VASC DEV/IMPLNT/GRFT, INIT
[2018-03-08] MEDS: ALBUTEROL SO4 2.5/IPRATROPIUM 0.5 INH SOL 3 ML VIAL.NEB. NEB PRN (16:32)
--- NOTE | 2018-03-08 16:44 | CONSULT ---
- Consultation REQUESTING PROVIDER: CONSULT REQUEST: We have been asked to surgically evaluate this patient for ( LUE surgery site, s/p ligation of dialysis access). PCP:Paulo Dunbar HISTORY OF PRESENT ILLNESS: 52 y/o M w/ PMHx HTN, DM, CAD s/p CABG, ESRD on HD via R chest PC now a/w worsening shortness of breath and cough. Surgery consulted for evaluation of pts LUe surgical site. Pt reports he was seen at [facility] last Thursday by his vascular surgeon, Dr Bhatti for ligation of his LUE dialysis access ( ?AVF) due to issues with bleeding. Pt reports he was dialyzed Thursday morning without issue, however when he removed his dressing at home he noted continuous bleeding from the puncture site and called Dr Bhatti. Reports having VNS services at home for dressing changes. Last dressing change was Thursday. Denies fevers/chills/n/v/d. PMHx: as above PSHx: as above Home Medications Medication Instructions Recorded Allopurinol [Zyloprim -] 100 mg PO DAILY 11/28/16 Atorvastatin Ca [Lipitor] 80 mg PO HS 11/28/16 Cinacalcet HCl [Sensipar] 30 mg PO DAILY 11/28/16 Ferrous Sulfate 325 mg PO DAILY 11/28/16 Furosemide [Lasix] 80 mg PO DAILY 11/28/16 Hydralazine HCl 50 mg PO TID 11/28/16 Lisinopril 5 mg PO DAILY 11/28/16 Omeprazole 20 mg PO DAILY 11/28/16 Sevelamer Carbonate [Renvela -] 800 mg NR TID 11/28/16 Aspirin [Jeremiah Chewable Aspirin] 81 mg PO DAILY 10/26/17 Cetirizine HCl 10 mg PO DAILY 10/26/17 Insulin Detemir [Levemir Flextouch] 15 units SQ HS 10/26/17 Acetaminophen W/ Codeine #3 1 tab PO Q12H PRN tablet MDD 2 10/30/17 [Tylenol # 3 -] Albuterol 2.5/Ipratropium 0.5 1 amp NEB Q6H PRN amp 10/30/17 [Duoneb -] Bimatoprost [Lumigan] 1 drop OS HS 02/02/18 Brimonidine Tartrate [Alphagan 1 drop OS TID 02/02/18 0.15% -] Indomethacin 50 mg PO BID 02/02/18 Insulin Aspart [Novolog] 8 unit SQ AC 02/02/18 Magnesium Oxide [Magnesium] 400 mg PO TID 02/02/18 Tramadol HCl/Acetaminophen 1 each PO BID 02/02/18 [Tramadol-Acetaminophn 37.5-325] Allergies Allergy/AdvReac Type Severity Reaction Status Date / Time No Known Drug Allergies Allergy Verified 03/05/18 20:10 REVIEW OF SYSTEMS: CONSTITUTIONAL: Absent: fever, chills PHYSICAL EXAM: GENERAL: Awake, alert, and fully oriented, in no acute distress. Sitting in bed watching TV with family member at bedside. HEAD: Normal with no signs of trauma. UPPER EXTREMITIES: LUE dressing removed. 4x4 with moderate serous drainage, Iodoform packing removed, no foul odor. Wound bed with +granulation tissue, some fibrinous exudate proximally. Wound edges clean. Staple site x2 c/d/i. No erythema, no foul odor, no purulent drainage expressed. Wound repacked lightly with damp to dry 4x4, covered with wet to dry 4x4, kerlix. Able to move LUE antigravity, cap refill intact. Vital Signs Temperature 98.4 F 03/08/18 14:00 Pulse Rate 88 03/08/18 14:00 Respiratory Rate 20 03/08/18 14:00 Blood Pressure 144/78 03/08/18 14:00 O2 Sat by Pulse Oximetry (%) 95 03/08/18 09:00 Lab Results WBC 4.9 K/mm3 (4.0-10.0) 03/07/18 06:30 RBC 3.21 M/mm3 (4.00-5.60) L 03/07/18 06:30 Hgb 9.5 GM/dL (11.7-16.9) L 03/07/18 06:30 Hct 30.7 % (35.4-49) L 03/07/18 06:30 MCV 95.5 fl (80-96) 03/07/18 06:30 MCHC 30.9 g/dl (32.0-35.9) L 03/07/18 06:30 RDW 16.9 % (11.9-15.9) H 03/07/18 06:30 Plt Count 239 K/MM3 (134-434) 03/07/18 06:30 Sodium 135 mmol/L (136-145) L 03/07/18 06:30 Potassium 3.9 mmol/L (3.5-5.1) 03/07/18 06:30 Chloride 97 mmol/L (98-107) L 03/07/18 06:30 Carbon Dioxide 27 mmol/L (21-32) 03/07/18 06:30 Anion Gap 11 MMOL/L (8-16) 03/07/18 06:30 BUN 21 mg/dL (7-18) H 03/07/18 06:30 Creatinine 5.2 mg/dL (0.55-1.3) H 03/07/18 06:30 Random Glucose 267 mg/dL (74-106) H 03/07/18 06:30 Calcium 8.0 mg/dL (8.5-10.1) L 03/07/18 06:30 A/P: 52 y/o M w/ PMHx HTN, DM, CAD s/p CABG, ESRD on HD via R chest PC now a/w worsening shortness of breath and cough. Surgery consulted for evaluation of pts LUE surgical site. S/P ligation of permanent HD access last 1 week ago at [facility] with Dr Bhatti Wound without signs of infection -Recommend damp to dry dressings (some fibrinous exudate present) with light packing into proximal wound if possible, cover with 4x4 and kerlix -Remainder of care per primary team Message sent to Dr Bhatti regarding above
[2018-03-08] MEDS: ATORVASTATIN CA 80 MG TABLET (FP) PO SCH (21:42)
[2018-03-08] MEDS: LATANOPROST 0.005% OPHTH SOLN 2.5ML BOTTLE OS SCH (21:43)
[2018-03-09] MEDS: hydrALAZINE HCL 50 MG TABLET (FP) PO SCH ×2 (05:40→18:33)
[2018-03-09] MEDS: BRIMONIDINE TARTRATE 0.15% OPHTHALMIC 5 ML BOTTLE OS SCH ×2 (05:40→15:19)
[2018-03-09] MEDS: MAGNESIUM OXIDE 400 MG TABLET (FP) PO SCH ×2 (05:40→18:34)
[2018-03-09] MEDS: INSULIN SLIDING SCALE (NOVOLOG) 1 VIAL SQ SCH ×2 (06:14→18:34)
[2018-03-09] MEDS ORDERED: PT OWN MED DRAWER 7, Y5N ONE (08:58)
[2018-03-09] MEDS: SEVELAMER CARBONATE 800 MG TAB (FP) PO SCH ×2 (09:00→15:19)
--- NOTE | 2018-03-09 09:30 | DS ---
Physical Examination Vital Signs: Vital Signs Temperature 98 F 03/09/18 05:39 Pulse Rate 94 H 03/09/18 05:39 Respiratory Rate 20 03/09/18 05:39 Blood Pressure 155/87 03/09/18 05:39 O2 Sat by Pulse Oximetry (%) 95 03/08/18 22:00 Findings/Remarks: feels well awaiting for dyalsis then DC home on po ATB per ID; afebrile no cough Constitutional: Yes: No Distress, Calm Eyes: Yes: Conjunctiva Clear HENT: Yes: Atraumatic Neck: Yes: Supple Cardiovascular: Yes: Regular Rate and Rhythm Respiratory: Yes: CTA Bilaterally Gastrointestinal: Yes: Soft. No: Tenderness Renal/: No: CVA Tenderness - Left, CVA Tenderness - Right Musculoskeletal: No: Joint Stiffness, Joint Swelling Extremities: Yes: Amputation. No: Cold, Cool Edema: No Integumentary: No: Rash, Venous Stasis Changes Neurological: Yes: WNL, Alert, Oriented ...Motor Strength: WNL Psychiatric: Yes: WNL, Alert, Oriented. No: Agitated, Suicidal Ideation Labs: CBC, BMP 03/07/18 06:30 03/07/18 06:30 Discharge Summary Reason For Visit: ACUTE ON CHRONIC CHF CHEST PAIN ASTHMA Current Active Problems Acute bronchitis (Acute) Arteriovenous fistula infection (Acute) Asthma (Acute) CHF exacerbation (Acute) Chest pain (Acute) Cough (Acute) Procedures: Principal: admitted with fever cough, s/p L AVF revision Other Procedures: treated with antibiotics per ID; HD per renal Hospital Course: cultures negative; improved with above; DC home on po ATB x 5 days and f/u as advised Condition: Guarded - Instructions Diet, Activity, Other Instructions: f/u PCP and vascular surgery in 1-2 weeks; dyalisis per renal; RTER if worse, recurrent c/o or new c/o take meds as advised; Referrals: Paulo Dunbar MD [Primary Care Provider] - Antwan Hurley MD [Staff Physician] - Allen Bhatti MD [Staff Physician] - Disposition: VNS/HOME HEALTH CARE - Home Medications Comprehensive Discharge Medication List: Ambulatory Orders Allopurinol [Zyloprim -] 100 mg PO DAILY 11/28/16 Atorvastatin Ca [Lipitor] 80 mg PO HS 11/28/16 Cinacalcet HCl [Sensipar] 30 mg PO DAILY 11/28/16 Ferrous Sulfate 325 mg PO DAILY 11/28/16 Furosemide [Lasix] 80 mg PO DAILY 11/28/16 Hydralazine HCl 50 mg PO TID 11/28/16 Lisinopril 5 mg PO DAILY 11/28/16 Omeprazole 20 mg PO DAILY 11/28/16 Sevelamer Carbonate [Renvela -] 800 mg NR TID 11/28/16 Aspirin [Jeremiah Chewable Aspirin] 81 mg PO DAILY 10/26/17 Cetirizine HCl 10 mg PO DAILY 10/26/17 Insulin Detemir [Levemir Flextouch] 15 units SQ HS 10/26/17 Acetaminophen W/ Codeine #3 [Tylenol # 3 -] 1 tab PO Q12H PRN tablet MDD 2 09/09 Albuterol 2.5/Ipratropium 0.5 [Duoneb -] 1 amp NEB Q6H PRN amp 10/30/17 Bimatoprost [Lumigan] 1 drop OS HS 02/02/18 Brimonidine Tartrate [Alphagan 0.15% -] 1 drop OS TID 02/02/18 Insulin Aspart [Novolog] 8 unit SQ AC 02/02/18 Magnesium Oxide [Magnesium] 400 mg PO TID 02/02/18 Acetaminophen [Tylenol .Regular Strength -] 650 mg PO Q6H PRN tablet 03/08/18 Cefuroxime Axetil [Ceftin -] 500 mg PO DAILY #5 tablet 03/08/18 Guaifenesin Dm [Robitussin Dm -] 10 ml PO Q4H PRN cup 03/08/18 Insulin Sliding Scale [Novolog Vial Sliding Scale -] 1 vial SQ ACHS units 03/08
[2018-03-09] MEDS ORDERED: SODIUM CHLORIDE 250 ML IV PRN (09:39)
[2018-03-09] MEDS ORDERED: CEFUROXIME AXETIL 500 MG TABLET PO SCH (10:00)
[2018-03-09 11:00] LABS: HEMATOCRIT 25.7 % (35.4-49); HEMOGLOBIN 8.2 GM/dL (11.7-16.9); MCH 30.1 pg (25.7-33.7); MEAN CELL VOLUME 93.9 fl (80-96); MEAN PLT VOLUME 8.3 fl (7.5-11.1); PLATELET COUNT 245 K/MM3 (134-434); RBC 2.74 M/mm3 (4.00-5.60); RDW 16.9 % (11.9-15.9); WHITE BLOOD COUNT 5.9 K/mm3 (4.0-10.0)
[2018-03-09 11:52] LABS: ANION GAP 14 MMOL/L (8-16); BLOOD UREA NITROGEN 54 mg/dL (7-18); CALCIUM 7.8 mg/dL (8.5-10.1); CHLORIDE 97 mmol/L (98-107); CO2 22 mmol/L (21-32); GLUCOSE,RANDOM 242 mg/dL (74-106); PHOSPHOROUS 6.5 mg/dL (2.5-4.9); POTASSIUM 4.5 mmol/L (3.5-5.1); SODIUM 133 mmol/L (136-145)
[2018-03-09] MEDS ORDERED: EPOETIN ALFA 10,000 UNIT/1 ML VIAL IVPUSH ONE (12:00)
--- NOTE | 2018-03-09 12:14 | PN ---
Progress Note, Physician Chief Complaint: Pt A&Ox3; no chest pain or dyspnea. - Current Medication List Current Medications: Active Medications Acetaminophen (Tylenol -) 650 mg PO Q6H PRN PRN Reason: PAIN LEVEL 1-5 Last Admin: 03/06/18 22:36 Dose: 650 mg Acetaminophen/Codeine Phosphate (Tylenol # 3 -) 2 tab PO Q6H PRN PRN Reason: PAIN LEVEL 6-10 Albuterol/Ipratropium (Duoneb -) 1 amp NEB Q6H PRN PRN Reason: SHORTNESS OF BREATH Last Admin: 03/08/18 16:32 Dose: 1 amp Allopurinol (Zyloprim -) 100 mg PO DAILY [facility] Last Admin: 03/08/18 10:11 Dose: 100 mg Aspirin (Asa -) 81 mg PO DAILY [facility] Last Admin: 03/08/18 10:10 Dose: 81 mg Atorvastatin Calcium (Lipitor -) 80 mg PO HS [facility] Last Admin: 03/08/18 21:42 Dose: 80 mg Brimonidine Tartrate (Alphagan 0.15% -) 1 drop OS TID [facility] Last Admin: 03/09/18 05:40 Dose: 1 drop Cefuroxime Axetil (Ceftin -) 500 mg PO DAILY [facility] Cinacalcet (Sensipar -) 30 mg PO DAILY [facility] Last Admin: 03/08/18 12:17 Dose: 30 mg Furosemide (Lasix -) 80 mg PO DAILY [facility] Last Admin: 03/08/18 10:10 Dose: 80 mg Guaifenesin (Robitussin Dm -) 10 ml PO Q4H PRN PRN Reason: COUGH Last Admin: 03/07/18 06:37 Dose: 10 ml Hydralazine HCl (Apresoline -) 50 mg PO TID [facility] Last Admin: 03/09/18 05:40 Dose: 50 mg Sodium Chloride (Normal Saline -) 250 mls @ 3,000 mls/hr IV PRN PRN PRN Reason: Hypotension during Dialysis Stop: 03/10/18 09:39 Insulin Aspart (Novolog Vial Sliding Scale -) 1 vial SQ [facility]; Protocol Last Admin: 03/09/18 06:14 Dose: 2 units Latanoprost (Xalatan 0.005% Eye Drops -) 1 drop OS [facility] Last Admin: 03/08/18 21:43 Dose: 1 drop Lisinopril (Prinivil) 5 mg PO DAILY [facility] Last Admin: 03/08/18 10:11 Dose: 5 mg Magnesium Oxide (Mag-Ox -) 400 mg PO TID [facility] Last Admin: 03/09/18 05:40 Dose: 400 mg Pantoprazole Sodium (Protonix -) 40 mg PO DAILY [facility] Last Admin: 03/08/18 10:11 Dose: 40 mg Sevelamer Carbonate (Renvela -) 800 mg PO TIDCM [facility] Last Admin: 03/09/18 09:00 Dose: 800 mg - Objective Vital Signs: Vital Signs Temperature 98 F 03/09/18 05:39 Pulse Rate 85 03/09/18 11:35 Respiratory Rate 18 03/09/18 11:35 Blood Pressure 154/78 03/09/18 11:35 O2 Sat by Pulse Oximetry (%) 95 03/09/18 09:00 Constitutional: Yes: Obese Eyes: Yes: WNL HENT: Yes: WNL Neck: Yes: WNL Cardiovascular: Yes: S1, S2, S4 Labs: CBC, BMP 03/09/18 10:40 03/09/18 10:40 Problem List - Problems (1) Obesity (BMI 30-39.9) Code(s): E66.9 - OBESITY, UNSPECIFIED (2) Acute bronchitis Assessment/Plan: On antibiotics; f/u with battery assembler dry cell, ID. Code(s): J20.9 - ACUTE BRONCHITIS, UNSPECIFIED (3) Asthma Code(s): J45.909 - UNSPECIFIED ASTHMA, UNCOMPLICATED (4) Atypical chest pain Code(s): R07.89 - OTHER CHEST PAIN (5) ESRD (end stage renal disease) Assessment/Plan: For hemodialysis today. Code(s): N18.6 - END STAGE RENAL DISEASE
[2018-03-09 12:55] LABS: CREATININE 9.2 mg/dL (0.55-1.3)
[2018-03-09 14:37] VITALS: BP 163/75; PULSE 99
[2018-03-09 15:17] VITALS: TEMP 99
[2018-03-09] MEDS: ALLOPURINOL 100 MG TABLET (FP) PO SCH (15:18)
[2018-03-09] MEDS: LISINOPRIL 5 MG TABLET (FP) PO SCH (15:18)
[2018-03-09] MEDS: ASPIRIN 81 MG CHEWABLE TABLETS PO SCH (15:18)
[2018-03-09] MEDS: FUROSEMIDE 40 MG TABLET (FP) PO SCH (15:18)
[2018-03-09] MEDS: PANTOPRAZOLE 40 MG TABLET (FP) PO SCH (15:18)
[2018-03-09] MEDS: CINACALCET HCL 30 MG TAB (FP) PO SCH (15:19)
[2018-03-09 15:32] LABS: CREATININE 3.3 mg/dL (0.55-1.3)
== END 2018-03-09 15:55 | disposition home health service (06) | DRG 291 ==
LOC: JER 20:03 → JERBED 03-06 01:10 → J4W 03-06 16:47 → OBSVTOIN 03-06 23:58
PROVIDERS: ADMIT Specialist; ATTEND Specialist
PROC: 5A1D70Z Performance of Urinary Filtration, Intermittent, Less than 6 Hours Per Day (ICD-10-PCS; principal; 2018-03-06)
DX: I13.2 Hypertensive heart and chronic kidney disease with heart failure and with stage 5 chronic kidney disease, or end stage renal disease (principal); N18.6 End stage renal disease; I50.33 Acute on chronic diastolic (congestive) heart failure; I25.10 Atherosclerotic heart disease of native coronary artery without angina pectoris; Z95.1 Presence of aortocoronary bypass graft; E11.22 Type 2 diabetes mellitus with diabetic chronic kidney disease; Z99.2 Dependence on renal dialysis; Z79.4 Long term (current) use of insulin; D63.1 Anemia in chronic kidney disease; J44.9 Chronic obstructive pulmonary disease, unspecified; K21.9 Gastro-esophageal reflux disease without esophagitis; F32.9 Major depressive disorder, single episode, unspecified; H54.40 Blindness, one eye, unspecified eye; M10.9 Gout, unspecified; J20.9 Acute bronchitis, unspecified; E66.9 Obesity, unspecified; Z68.36 Body mass index [BMI] 36.0-36.9, adult
CPT/HCPCS: 36415; 71046-TC-FY; 71250-TC; 80048; 80053; 82550; 82553; 82565; 82962; 83690; 83880; 84100; 84439; 84443; 84484; 84520; 85025; 85027; 86704; 86706; 86708; 86803; 87040; 87086; 87340; 87804; 87807; 87899; 93005; 93010; 94640; 99284-25; G0378; J0131; J0885

== ENCOUNTER 2018-05-06 07:34 | Inpatient (IN) | payer OTHER ==
--- NOTE | 2018-05-06 08:34 | PDOC ---
History of Present Illness - General Chief Complaint: AV shunt bleeding Stated Complaint: BLEED Time Seen by Provider: 05/06/18 07:48 History Source: Patient Exam Limitations: No Limitations - History of Present Illness Initial Comments: 05/06/18 08:18 52 yo M h/o ESRD on HD ([facility]ThS, last HD on T), DM, HTN, CAD s/p CABG p/w AV fistula bleeding which has now stopped. R arm fistula created 2 weeks ago. This morning patient was walking with walker in that he exerted pressure over the fistula site which caused the bleeding. The bleeding was profuse and lasted 15 mins. Family put gauzze on it and fast track placed pressure bandage on it which stop the bleeding. 05/06/18 09:02 Dr. Everett at bedside Will admit the patient to med-surg under Dr. Dunbar's service. Will also obtain basic labs Dr. Xavi thomas Called Dr. Dunbar's office and spoke to after hour radiation oncology therapist service regarding admission. Awaiting call back. Past History - Past Medical History Allergies/Adverse Reactions: Allergies Allergy/AdvReac Type Severity Reaction Status Date / Time No Known Drug Allergies Allergy Verified 05/06/18 07:41 Home Medications: Ambulatory Orders Allopurinol [Zyloprim -] 100 mg PO DAILY 05/06/18 Aspirin [ASA -] 81 mg PO DAILY 05/06/18 Atorvastatin Calcium 80 mg PO HS 05/06/18 Bimatoprost [Lumigan] 1 drop OS HS 05/06/18 Brimonidine Tartrate [Alphagan 0.15% -] 1 drop OS TID 05/06/18 Brinzolamide [Azopt] 1 drop OS TID 05/06/18 Cinacalcet HCl [Sensipar -] 30 mg PO DAILY 05/06/18 Ferrous Sulfate [Feosol] 325 mg PO DAILY 05/06/18 Furosemide [Lasix -] 80 mg PO DAILY 05/06/18 Hydralazine HCl 50 mg PO TID 05/06/18 Indomethacin [Indocin -] 50 mg PO BID 05/06/18 Insulin (LOG) Aspart [NovoLOG -] 8 units SQ TID 05/06/18 Insulin Detemir [Levemir Flextouch] 8 unit SQ HS 05/06/18 Levocetirizine Dihydrochloride 10 mg PO DAILY 05/06/18 Lisinopril [Prinivil] 5 mg PO DAILY 05/06/18 Magnesium Oxide [Magox 400] 400 mg PO TID 05/06/18 Omeprazole 20 mg PO DAILY 05/06/18 Sevelamer Carbonate [Renvela] 2,400 mg PO CM 05/06/18 Tramadol HCl/Acetaminophen [Tramadol-Acetaminophn 37.5-325] 1 each PO BID Anemia: Yes Asthma: No Cancer: No Cardiac Disorders: Yes ("silent AL" CABG x 2 vessels 05/24/2010) CVA: No COPD: No CHF: Yes DVT: No Dementia: No Diabetes: Yes Dialysis: Yes (,,) GI Disorders: Yes (GERD) Disorders: No HTN: Yes Hypercholesterolemia: Yes Liver Disease: No Seizures: No Thyroid Disease: No - Surgical History Abdominal Surgery: No Appendectomy: No Cardiac Surgery: Yes (CABG 05/2010, cardiac stent may 2013) Cholecystectomy: No Lung Surgery: No Orthopedic Surgery: Yes (transmet amp L foot) - Family Disease History Family Disease History: Diabetes: Mother, Heart Disease: Father - Immunization History Immunization Up to Date: Yes - Suicide/Smoking/Psychosocial Hx Smoking Status: No Smoking History: Smoker current status UNK Years of Tobacco Use: 0 Have you smoked in the past 12 months: No Number of Cigarettes Smoked Daily: 2 If you are a former smoker, when did you quit?: 1990 Cigars Per Day: 0 'Breaking Loose' booklet given: 06/04/12 Hx Alcohol Use: No Drug/Substance Use Hx: No Substance Use Type: None Hx Substance Use Treatment: No Review of Systems - Review of Systems Able to Perform ROS?: Yes Is the patient limited Green[place]ic proficient: No Constitutional: No: Chills, Fever Respiratory: No: Cough, Shortness of Breath Cardiac (ROS): No: Chest Pain Integumentary: Yes: Other (R fistula bleeding) *Physical Exam - Vital Signs Last Vital Signs Temp Pulse Resp BP Pulse Ox 97.9 F 86 18 159/84 96 05/06/18 07:41 05/06/18 07:41 05/06/18 07:41 05/06/18 07:41 05/06/18 07:41 - Physical Exam General Appearance: No: Apparent Distress Respiratory/Chest: positive: Lungs Clear, Normal Breath Sounds Cardiovascular: positive: Regular Rhythm, Regular Rate, S1, S2. negative: JVD, Murmur Gastrointestinal/Abdominal: positive: Normal Bowel Sounds Extremity: positive: Other (R fistula audible thrills) Neurologic: positive: backshoe person II-XII NML intact Moderate Sedation - Procedure Monitoring Vital Signs: Procedure Monitoring Vital Signs Temperature 97.9 F 05/06/18 07:41 Pulse Rate 86 05/06/18 07:41 Respiratory Rate 18 05/06/18 07:41 Blood Pressure 159/84 05/06/18 07:41 O2 Sat by Pulse Oximetry (%) 96 05/06/18 07:41 ED Treatment Course - LABORATORY CBC & Chemistry Diagram: 05/06/18 09:00 05/06/18 09:00 *DC/Admit/Observation/Transfer Diagnosis at time of Disposition: Hemorrhage of arteriovenous fistula Qualifiers: Encounter type: initial encounter Qualified Code(s): T82.838A - Hemorrhage due to vascular prosthetic devices, implants and grafts, initial encounter - Discharge Dispostion Decision to Admit order: Yes - Referrals - Patient Instructions - Post Discharge Activity
[2018-05-06] MEDS ORDERED: SILVER NITRATE 75% APPLIC STCK 1 PKT EACH ONE (08:43)
[2018-05-06] MEDS ORDERED: BACITRACIN 0.9 GM PACKET ONE (08:44)
--- NOTE | 2018-05-06 08:52 | PN ---
Progress Note (short form) - Note Progress Note: S/p right arm AV fistula 2 weeks ago. Developed bleeding from right arm wound this morning. Blood described as dark. On exam, no pulsatile mass or swelling under antecubital incision. Sutures intact with partial skin dehiscence. No active bleeding. Wound opened afte removing sutures and SubQ tissues debrided. Small venous bleeding controlled with pressure and silver nitrate. Bacitracin dressing applied. Imp: Drainage of old hematoma. No evidence for active arterial bleeding. Rec: Observation with dialysis in hospital in case new bleeding develops.
--- NOTE | 2018-05-06 08:57 | PDOC ---
Attending Attestation - Resident Resident Name: LopezJosé Manuel - ED Attending Attestation I have performed the following: I have examined & evaluated the patient, The case was reviewed & discussed with the resident, I agree w/resident's findings & plan - HPI HPI: 05/06/18 08:51 52y/o M ESRD on TTS dialysis currently through [facility], newly placed fistula RUE about one month ago, revised 2 weeks ago, now with bleeding from RUE fistula this morning after he coughed. Applied pressure, bleeding slowed down. Due for dialysis at 10am, no other complaints. - Physicial Exam PE: 05/06/18 08:57 VSS well appearing lying in stretcher RUE: seen with Dr. Bhatti at bedside, sutures removed, ongoing venous oozing without arterial bleed/hematoma. 2+ distal pulses, no arm swelling - Medical Decision Making 05/06/18 08:58 52y/o M with new RUE fistula and ongoing bleeding, nvi otherwise and HD stable. seen with Dr. Bhatti, needs monitoring for bleeding send labs, arrange for HD today with Dr. Lerma admit to dialysis bed Heart Score/ECG Review #1 ECG reviewed & interpreted by me at: 09:02 General ECG Interpretation: Sinus Rhythm (PVC noted), Normal Rate (86), Normal Intervals (qtc 483), No acute ischemic changes
[2018-05-06 09:15] LABS: BASO % 1.2 % (0-2.0); EOS % 5.2 % (0-4.5); HEMATOCRIT 28.1 % (35.4-49); HEMOGLOBIN 9.5 GM/dL (11.7-16.9); LYMPH % 13.8 % (8-40); MCH 31.2 pg (25.7-33.7); MCHC 33.7 g/dl (32.0-35.9); MEAN CELL VOLUME 92.8 fl (80-96); MEAN PLT VOLUME 7.7 fl (7.5-11.1); MONO % 10.5 % (3.8-10.2); NEUT % 69.3 % (42.8-82.8); PLATELET COUNT 252 K/MM3 (134-434); RBC 3.03 M/mm3 (4.00-5.60); RDW 17.3 % (11.9-15.9); WHITE BLOOD COUNT 5.7 K/mm3 (4.0-10.0)
[2018-05-06 09:41] LABS: INR 1.07 (0.83-1.09); PROTHROMBIN TIME (PATIENT) 12.6 SEC (9.7-13.0)
[2018-05-06 09:49] LABS: ALBUMIN 3.1 g/dl (3.4-5.0); ALK PHOS 648 U/L (45-117); ANION GAP 11 MMOL/L (8-16); BILIRUBIN,TOTAL 0.3 mg/dL (0.2-1); BLOOD UREA NITROGEN 74 mg/dL (7-18); CALCIUM 7.7 mg/dL (8.5-10.1); CHLORIDE 103 mmol/L (98-107); CO2 22 mmol/L (21-32); GLUCOSE,RANDOM 84 mg/dL (74-106); MAGNESIUM 2.4 mg/dL (1.8-2.4); PHOSPHOROUS 6.2 mg/dL (2.5-4.9); POTASSIUM 4.5 mmol/L (3.5-5.1); SGOT/AST 9 U/L (15-37); SGPT/ALT 8 U/L (13-61); SODIUM 136 mmol/L (136-145); TOT PROT 7.4 g/dl (6.4-8.2)
[2018-05-06 10:00] LABS: CREATININE 8.9 mg/dL (0.55-1.3)
--- NOTE | 2018-05-06 12:09 | CONSULT ---
Consult - text type - Consultation Consultation Note: Renal follow up for ESRD on HD 52 year old gentleman with hx of ESRDon HD (TTS), DM, Hypertension, CAD s/p CABG, presented from home with bleeding from AVF site. New AVF was placed 2 weeks ago by vascular surgery. Noted to have bleeding from incision site this morning. He also reports arm numbness. No SOB, CP, Fever, chills,, N/V /D, Abd pain, SELF, confusion or lethargy. Last dialysis was Thursday. PMHx: as above Allergies: NKDA Family Hx: NC Social Hx: No T/A/D ROS: as per HPI, all other pertinent ros negative Home Medications Medication Instructions Recorded Allopurinol [Zyloprim -] 100 mg PO DAILY 05/06/18 Aspirin [ASA -] 81 mg PO DAILY 05/06/18 Atorvastatin Calcium 80 mg PO HS 05/06/18 Bimatoprost [Lumigan] 1 drop OS HS 05/06/18 Brimonidine Tartrate [Alphagan 1 drop OS TID 05/06/18 0.15% -] Brinzolamide [Azopt] 1 drop OS TID 05/06/18 Cinacalcet HCl [Sensipar -] 30 mg PO DAILY 05/06/18 Ferrous Sulfate [Feosol] 325 mg PO DAILY 05/06/18 Furosemide [Lasix -] 80 mg PO DAILY 05/06/18 Hydralazine HCl 50 mg PO TID 05/06/18 Indomethacin [Indocin -] 50 mg PO BID 05/06/18 Insulin (LOG) Aspart [NovoLOG -] 8 units SQ TID 05/06/18 Insulin Detemir [Levemir Flextouch] 8 unit SQ HS 05/06/18 Levocetirizine Dihydrochloride 10 mg PO DAILY 05/06/18 Lisinopril [Prinivil] 5 mg PO DAILY 05/06/18 Magnesium Oxide [Magox 400] 400 mg PO TID 05/06/18 Omeprazole 20 mg PO DAILY 05/06/18 Sevelamer Carbonate [Renvela] 2,400 mg PO CM 05/06/18 Tramadol HCl/Acetaminophen 1 each PO BID 05/06/18 [Tramadol-Acetaminophn 37.5-325] Vital Signs Temperature 97.9 F 05/06/18 07:41 Pulse Rate 86 05/06/18 07:41 Respiratory Rate 18 05/06/18 07:41 Blood Pressure 159/84 05/06/18 07:41 O2 Sat by Pulse Oximetry (%) 96 05/06/18 07:41 Intake & Output 05/03/18 05/04/18 05/05/18 05/06/18 23:59 23:59 23:59 23:59 Weight 92.986 kg NAD awake and alert neck supple, no JVD RRR, No M/R CTA, no rales or wheeze soft NT/ND trace LE edema right IJ permaath in place right ARM AVF with dressing over it CBC, BMP 05/06/18 09:00 05/06/18 09:00 Current Medications Epoetin Lauri (Epogen -) 10,000 unit IVPUSH ONCE ONE Stop: 05/06/18 12:00 Sodium Chloride (Normal Saline -) 250 mls @ 3,000 mls/hr IV PRN PRN PRN Reason: Hypotension during Dialysis Stop: 05/07/18 11:59 52 year old gentleman with hx of ESRDon HD (TTS), DM, Hypertension, CAD s/p CABG, presented from home with bleeding from AVF site. #ESRD on HD #Bleeding from AVF site #Arm Numbness #Hypertension #Chronic Anemia #DM #CAD s/p evaluation by vascular surgery, will monitor incision site for further bleeding for dialysis today as inpatient via tunneled catheter will not use heparin with HD Continue home antihypertensives will give DAVON with HD for anemia Continue insulin sliding scale Renal diet, 1.2L fluid restriction Thank you Will follow Antwan Hurley DO
[2018-05-06] MEDS ORDERED: SODIUM CHLORIDE 250 ML IV PRN (13:14)
[2018-05-06] MEDS ORDERED: EPOETIN ALFA 10,000 UNIT/1 ML VIAL IVPUSH ONE (14:00)
--- NOTE | 2018-05-06 15:35 | EKG ---
Test Reason : Blood Pressure : / mmHG Vent. Rate : 086 BPM Atrial Rate : 086 BPM P-R Int : 176 ms QRS Dur : 104 ms QT Int : 404 ms P-R-T Axes : 042 023 097 degrees QTc Int : 483 ms SINUS RHYTHM WITH OCCASIONAL PREMATURE VENTRICULAR COMPLEXES LOW VOLTAGE QRS SEPTAL INFARCT (CITED ON OR BEFORE 13-DEC-2009) ABNORMAL ECG WHEN COMPARED WITH ECG OF 06-MAR-2018 00:19, PREMATURE VENTRICULAR COMPLEXES ARE NOW PRESENT Confirmed by TOMY NGUYEN MD ([id number]) on 05/06/2018 3:35:10 PM Referred By: Confirmed By:TOMY NGUYEN MD
--- NOTE | 2018-05-06 15:52 | HP ---
Admitting History and Physical - Primary Care Physician PCP: Paulo Dunbar - Admission Chief Complaint: Arm bleed History of Present Illness: Pt with forearm right fistula surgery couple of weeks ago, started to bleed this AM and come to ER. Pt was seen in ER by Dr Bhatti (Vascular Surgery). History Source: Patient - Past Medical History Cardiovascular: Yes: CAD, CHF (normal ejection fraction; poor LV compliance; no valvular abnormalities), HTN, Hyperlipdemia Pulmonary: Yes: Asthma, Pneumonia Gastrointestinal: Yes: GERD, GI Bleed Renal/: Yes: Renal Failure, Hemodialysis (ESRD on HD MWF via right IJ perm-a- cath) Heme/Onc: No: Anemia, B12 Deficiency, Bleeding Disorder, Cancer, Current Chemotherapy, Current Radiation Therapy, Hemochromatosis, Hypercoaguable State, Myeloproliferative Synd, Sickle Cell Disease, Sickle Cell Trait, Thrombocytopenia, Other Psych: Yes: Anxiety Musculoskeletal: Yes: Other (left metatarsal amputation) Rheumatology: Yes: Gout Endocrine: Yes: Diabetes Mellitus - Past Surgical History Past Surgical History: Yes: Amputation (Left Transmetatarsal), AV Fistula/Graft (LUE), CABG (05/2010), Stent (s/p cardiac cath with stent placement) - Smoking History Smoking history: Smoker current status UNK Have you smoked in the past 12 months: No Aproximately how many cigarettes per day: 2 If you are a former smoker, when did you quit?: 1989 - Alcohol/Substance Use Hx Alcohol Use: No History of Substance Use: reports: None - Social History ADL: Independent 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 History of Recent Travel: No Home Medications - Allergies Allergies/Adverse Reactions: Allergies Allergy/AdvReac Type Severity Reaction Status Date / Time No Known Drug Allergies Allergy Verified 05/06/18 07:41 - Home Medications Home Medications: Ambulatory Orders Allopurinol [Zyloprim -] 100 mg PO DAILY 05/06/18 Aspirin [ASA -] 81 mg PO DAILY 05/06/18 Atorvastatin Calcium 80 mg PO HS 05/06/18 Bimatoprost [Lumigan] 1 drop OS HS 05/06/18 Brimonidine Tartrate [Alphagan 0.15% -] 1 drop OS TID 05/06/18 Brinzolamide [Azopt] 1 drop OS TID 05/06/18 Cinacalcet HCl [Sensipar -] 30 mg PO DAILY 05/06/18 Ferrous Sulfate [Feosol] 325 mg PO DAILY 05/06/18 Furosemide [Lasix -] 80 mg PO DAILY 05/06/18 Hydralazine HCl 50 mg PO TID 05/06/18 Indomethacin [Indocin -] 50 mg PO BID 05/06/18 Insulin (LOG) Aspart [NovoLOG -] 8 units SQ TID 05/06/18 Insulin Detemir [Levemir Flextouch] 8 unit SQ HS 05/06/18 Levocetirizine Dihydrochloride 10 mg PO DAILY 05/06/18 Lisinopril [Prinivil] 5 mg PO DAILY 05/06/18 Magnesium Oxide [Magox 400] 400 mg PO TID 05/06/18 Omeprazole 20 mg PO DAILY 05/06/18 Sevelamer Carbonate [Renvela] 2,400 mg PO CM 05/06/18 Tramadol HCl/Acetaminophen [Tramadol-Acetaminophn 37.5-325] 1 each PO BID Family Disease History - Family Disease History Family Disease History: Diabetes: Father, Mother, Other: Father, Mother Review of Systems - Review of Systems Constitutional: denies: Chills, Fever Eyes: denies: Photophobia, Recent Change in Vision HENT: denies: Ear Discharge, Epistaxis, Nasal Congestion, Throat Pain Neck: denies: Decreased ROM, Pain on Movement Cardiovascular: denies: Chest Pain, Palpitations Respiratory: denies: Cough, SOB, Wheezing Gastrointestinal: denies: Abdominal Pain, Melena, Nausea, Rectal Bleeding Genitourinary: denies: Burning, Dysuria, Hematuria Neurological: denies: Change in LOC, Change in Speech, Numbness, Weakness Hematology/Lymphatic: denies: Easily Bruised, Excessive Bleeding Psychiatric: denies: Anxiety, Depression Physical Examination Vital Signs: Vital Signs Temperature 98 F 05/06/18 12:45 Pulse Rate 93 H 05/06/18 15:20 Respiratory Rate 18 05/06/18 15:20 Blood Pressure 135/62 05/06/18 15:20 O2 Sat by Pulse Oximetry (%) 98 05/06/18 12:26 Findings/Remarks: Pt now at HD Constitutional: Yes: No Distress, Calm Eyes: Yes: Conjunctiva Clear. No: EOM Intact HENT: Yes: Normocephalic. No: Epistaxis, Rhinnorhea Neck: Yes: Trachea Midline. No: Lymphadenopathy Cardiovascular: Yes: Regular Rate and Rhythm, S1, S2 Respiratory: Yes: Regular, CTA Bilaterally. No: Rales Gastrointestinal: Yes: Normal Bowel Sounds, Soft, Abdomen, Obese. No: Tenderness ...Rectal Exam: Yes: Deferred Renal/: No: CVA Tenderness - Left, CVA Tenderness - Right Musculoskeletal: No: Joint Stiffness, Joint Swelling Edema: Yes (left is large than right ) Edema: LLE: 1+, RLE: Trace Integumentary: Yes: Other (right arm with clean dressing). No: Bruising Neurological: Yes: Alert, Oriented, Other (motor and sensory is symmetric in UE / LE/ face) Psychiatric: Yes: Alert, Oriented Labs: CBC, BMP 05/06/18 09:00 05/06/18 09:00 Problem List - Problems (1) Hemorrhage of arteriovenous fistula Code(s): T82.838A - HEMORRHAGE DUE TO VASCULAR PROSTH DEV/GRFT, INIT Qualifiers: Encounter type: initial encounter Qualified Code(s): T82.838A - Hemorrhage due to vascular prosthetic devices, implants and grafts, initial encounter (2) ESRD (end stage renal disease) on dialysis Code(s): N18.6 - END STAGE RENAL DISEASE; Z99.2 - DEPENDENCE ON RENAL DIALYSIS (3) CAD (coronary artery disease) Code(s): I25.10 - ATHSCL HEART DISEASE OF [place] CORONARY ARTERY W/O ANG PCTRS (4) CHF (congestive heart failure) Code(s): I50.9 - HEART FAILURE, UNSPECIFIED (5) Diabetes mellitus Code(s): E11.9 - TYPE 2 DIABETES MELLITUS WITHOUT COMPLICATIONS Qualifiers: Diabetes mellitus type: type 2 Diabetes mellitus complication status: with kidney complications Diabetes mellitus complication detail: with chronic kidney disease Assessment/Plan To monitor H/H To f/u with Vasc Sx (consult is appreciated). Renal consult is appreciated AM labs
[2018-05-06] MEDS ORDERED: LATANOPROST 0.005% OPHTH SOLN 2.5ML BOTTLE OS SCH (22:00)
[2018-05-06] MEDS ORDERED: PATIENT'S OWN MEDICATION (NON-FORMULARY) (Brinzolamide [Azopt] 1 DROP) OS SCH (22:00)
[2018-05-06] MEDS ORDERED: ATORVASTATIN CA 80 MG TABLET (FP) PO SCH (22:00)
[2018-05-06] MEDS ORDERED: INSULIN (LEVEMIR) 100 UNITS/ML UNITS SQ SCH (22:00)
[2018-05-06] MEDS ORDERED: hydrALAZINE HCL 25 MG TABLET (FP) ONE (22:03)
[2018-05-06] MEDS ORDERED: MAGNESIUM OXIDE 400 MG TABLET (FP) ONE (22:03)
[2018-05-06] MEDS ORDERED: INSULIN (LEVEMIR) 100 UNITS/ML UNITS SQ ONE (22:04)
[2018-05-06] MEDS: hydrALAZINE HCL 50 MG TABLET (FP) PO SCH (22:12)
[2018-05-06] MEDS: INDOMETHACIN 50 MG CAPSULE PO SCH (22:12)
[2018-05-06] MEDS: BRIMONIDINE TARTRATE 0.15% OPHTHALMIC 5 ML BOTTLE OS SCH (22:12)
[2018-05-06] MEDS: MAGNESIUM OXIDE 400 MG TABLET (FP) PO SCH (22:13)
[2018-05-07 03:03] VITALS: BMI 33.5
[2018-05-07] MEDS: MAGNESIUM OXIDE 400 MG TABLET (FP) PO SCH ×2 (06:23→14:49)
[2018-05-07] MEDS: hydrALAZINE HCL 50 MG TABLET (FP) PO SCH ×2 (06:23→14:49)
[2018-05-07] MEDS: BRIMONIDINE TARTRATE 0.15% OPHTHALMIC 5 ML BOTTLE OS SCH ×2 (06:23→14:50)
[2018-05-07] MEDS ORDERED: PT OWN MED DRAWER 7, Y5N ONE ×4 (06:59→15:46)
[2018-05-07] MEDS ORDERED: INSULIN (LEVEMIR) 100 UNITS/ML UNITS SQ SCH (07:00)
[2018-05-07 07:50] LABS: HEMATOCRIT 27.5 % (35.4-49); HEMOGLOBIN 9.2 GM/dL (11.7-16.9); MCH 31.3 pg (25.7-33.7); MCHC 33.6 g/dl (32.0-35.9); MEAN CELL VOLUME 92.9 fl (80-96); MEAN PLT VOLUME 8.5 fl (7.5-11.1); PLATELET COUNT 240 K/MM3 (134-434); RBC 2.96 M/mm3 (4.00-5.60); RDW 17.5 % (11.9-15.9); WHITE BLOOD COUNT 5.2 K/mm3 (4.0-10.0)
[2018-05-07 08:27] LABS: ANION GAP 9 MMOL/L (8-16); BLOOD UREA NITROGEN 45 mg/dL (7-18); CALCIUM 8.1 mg/dL (8.5-10.1); CHLORIDE 100 mmol/L (98-107); CO2 27 mmol/L (21-32); GLUCOSE,RANDOM 209 mg/dL (74-106); POTASSIUM 3.9 mmol/L (3.5-5.1); SODIUM 135 mmol/L (136-145)
[2018-05-07] MEDS: SEVELAMER CARBONATE 800 MG TAB (FP) PO SCH ×2 (08:33→11:33)
[2018-05-07] MEDS: INDOMETHACIN 50 MG CAPSULE PO SCH (09:34)
[2018-05-07] MEDS ORDERED: INSULIN (NOVOLOG) ASPART 100 UNITS/ML 10ML VIAL ONE (09:40)
[2018-05-07] MEDS: Insulin (LOG) Aspart 100 UNITS/ML VIAL SQ SCH ×2 (09:42→13:08)
[2018-05-07] MEDS ORDERED: ASPIRIN 81 MG CHEWABLE TABLETS PO SCH (10:00)
[2018-05-07] MEDS ORDERED: LISINOPRIL 5 MG TABLET (FP) PO SCH (10:00)
[2018-05-07] MEDS ORDERED: CINACALCET HCL 30 MG TAB (FP) PO SCH (10:00)
[2018-05-07] MEDS ORDERED: ALLOPURINOL 100 MG TABLET (FP) PO SCH (10:00)
[2018-05-07] MEDS ORDERED: PANTOPRAZOLE 40 MG TABLET (FP) PO SCH (10:00)
[2018-05-07] MEDS ORDERED: FUROSEMIDE 40 MG TABLET (FP) PO SCH (10:00)
--- NOTE | 2018-05-07 10:31 | PN ---
Progress Note, Physician History of Present Illness: Pt w/o right forearm bleed. Pt w/o SOB, CP, palpitations, abd pain. - Current Medication List Current Medications: Active Medications Allopurinol (Zyloprim -) 100 mg PO DAILY [facility] Aspirin (Asa -) 81 mg PO DAILY [facility] Last Admin: 05/07/18 09:33 Dose: 81 mg Atorvastatin Calcium (Lipitor -) 80 mg PO HS [facility] Last Admin: 05/06/18 22:13 Dose: Not Given Brimonidine Tartrate (Alphagan 0.15% -) 1 drop OS TID [facility] Last Admin: 05/07/18 06:23 Dose: Not Given Cinacalcet (Sensipar -) 30 mg PO DAILY [facility] Last Admin: 05/07/18 09:34 Dose: 30 mg Furosemide (Lasix -) 80 mg PO DAILY [facility] Last Admin: 05/07/18 09:33 Dose: 80 mg Hydralazine HCl (Apresoline -) 50 mg PO TID [facility] Last Admin: 05/07/18 06:23 Dose: 50 mg Sodium Chloride (Normal Saline -) 250 mls @ 3,000 mls/hr IV PRN PRN PRN Reason: Hypotension during Dialysis Stop: 05/07/18 13:13 Indomethacin (Indocin -) 50 mg PO BID [facility] Last Admin: 05/07/18 09:34 Dose: 50 mg Insulin Aspart (Novolog) 8 units SQ PC [facility] Last Admin: 05/07/18 09:42 Dose: 8 units Insulin Detemir (Levemir Vial) 8 units SQ HS [facility] Last Admin: 05/06/18 22:12 Dose: 8 unit Insulin Detemir (Levemir Vial) 10 units SQ DAILY@0700 [facility] Last Admin: 05/07/18 06:23 Dose: 10 units Latanoprost (Xalatan 0.005% Eye Drops -) [address] [facility] Last Admin: 05/06/18 22:13 Dose: Not Given Lisinopril (Prinivil) 5 mg PO DAILY [facility] Last Admin: 05/07/18 09:33 Dose: 5 mg Magnesium Oxide (Mag-Ox -) 400 mg PO TID [facility] Last Admin: 05/07/18 06:23 Dose: 400 mg Non-Formulary Medication (Brinzolamide [Azopt]) 1 drop OS TID [facility] Pantoprazole Sodium (Protonix -) 40 mg PO DAILY [facility] Last Admin: 05/07/18 09:33 Dose: 40 mg Sevelamer Carbonate (Renvela -) 2,400 mg PO CM [facility] Last Admin: 05/07/18 08:33 Dose: 2,400 mg - Objective Vital Signs: Vital Signs Temperature 99.0 F 05/07/18 06:00 Pulse Rate 93 H 05/07/18 06:00 Respiratory Rate 20 05/07/18 06:00 Blood Pressure 130/52 L 05/07/18 06:00 O2 Sat by Pulse Oximetry (%) 95 05/07/18 02:48 Constitutional: Yes: No Distress, Calm Cardiovascular: Yes: Regular Rate and Rhythm, S1, S2 Respiratory: Yes: Regular, CTA Bilaterally. No: Rales Gastrointestinal: Yes: Normal Bowel Sounds, Soft, Abdomen, Obese Extremities: Yes: Amputation Edema: No Neurological: Yes: Alert, Oriented Labs: CBC, BMP 05/07/18 06:30 05/07/18 06:30 INR, PTT INR 1.07 (0.83-1.09) 05/06/18 09:00 Problem List - Problems (1) Hemorrhage of arteriovenous fistula Code(s): T82.838A - HEMORRHAGE DUE TO VASCULAR PROSTH DEV/GRFT, INIT Qualifiers: Encounter type: initial encounter Qualified Code(s): T82.838A - Hemorrhage due to vascular prosthetic devices, implants and grafts, initial encounter (2) ESRD (end stage renal disease) on dialysis Code(s): N18.6 - END STAGE RENAL DISEASE; Z99.2 - DEPENDENCE ON RENAL DIALYSIS (3) CAD (coronary artery disease) Code(s): I25.10 - ATHSCL HEART DISEASE OF [place] CORONARY ARTERY W/O ANG PCTRS (4) CHF (congestive heart failure) Code(s): I50.9 - HEART FAILURE, UNSPECIFIED (5) Diabetes mellitus Code(s): E11.9 - TYPE 2 DIABETES MELLITUS WITHOUT COMPLICATIONS Qualifiers: Diabetes mellitus type: type 2 Diabetes mellitus complication status: with kidney complications Diabetes mellitus complication detail: with chronic kidney disease Assessment/Plan To monitor H/H To f/u with Vasc Sx about further right forearm local care. Vasc Sx, Renal consult are appreciated. AM labs
--- NOTE | 2018-05-07 11:26 | PN ---
Progress Note (short form) - Note Progress Note: 52yo M h/o bleeding RUE AV fistula wound. Bleeding currently controlled. Pt had HD yesterday without issues. Last Vital Signs Temp Pulse Resp BP Pulse Ox 99.0 F 93 H 20 130/52 L 95 05/07/18 06:00 05/07/18 06:00 05/07/18 09:00 05/07/18 06:00 05/07/18 09:00 CBC, BMP 05/07/18 06:30 05/07/18 06:30 PE: Gen: A& Ox3 Resp: breathing comfortably RUE shows 2 cm open wound with serous drainage, no active bleeding. No edema. Problem List - Problems (1) Hemorrhage of arteriovenous fistula Assessment/Plan: Plan -bleeding appears controlled pt will need daily wound care with packing and dry dressing, consider VNS services for wound care. -consider discharge home if cleared by medicine. -follow up with Dr. Bhatti in clinic in 1 week as outpatient Code(s): T82.838A - HEMORRHAGE DUE TO VASCULAR PROSTH DEV/GRFT, INIT Qualifiers: Encounter type: initial encounter Qualified Code(s): T82.838A - Hemorrhage due to vascular prosthetic devices, implants and grafts, initial encounter
--- NOTE | 2018-05-07 12:25 | PN ---
Progress Note (short form) - Note Progress Note: Renal follow up for ESRD on HD Pt seen and examined at the bedside no acute complaints s/p dialysis yesterday no bleeding from AVF noted today Vital Signs Temperature 99.0 F 05/07/18 06:00 Pulse Rate 93 H 05/07/18 06:00 Respiratory Rate 20 05/07/18 09:00 Blood Pressure 130/52 L 05/07/18 06:00 O2 Sat by Pulse Oximetry (%) 95 05/07/18 09:00 Intake & Output 05/04/18 05/05/18 05/06/18 05/07/18 23:59 23:59 23:59 23:59 Weight 92.986 kg 97.069 kg NAD awake and alert neck supple, no JVD RRR, No M/R CTA, no rales or wheeze soft NT/ND trace LE edema right IJ permaath in place right ARM AVF with dressing over it CBC, BMP 05/07/18 06:30 05/07/18 06:30 Current Medications Allopurinol (Zyloprim -) 100 mg PO DAILY [facility] Aspirin (Asa -) 81 mg PO DAILY [facility] Last Admin: 05/07/18 09:33 Dose: 81 mg Atorvastatin Calcium (Lipitor -) 80 mg PO HS [facility] Last Admin: 05/06/18 22:13 Dose: Not Given Brimonidine Tartrate (Alphagan 0.15% -) 1 drop OS TID [facility] Last Admin: 05/07/18 06:23 Dose: Not Given Cinacalcet (Sensipar -) 30 mg PO DAILY [facility] Last Admin: 05/07/18 09:34 Dose: 30 mg Furosemide (Lasix -) 80 mg PO DAILY [facility] Last Admin: 05/07/18 09:33 Dose: 80 mg Hydralazine HCl (Apresoline -) 50 mg PO TID [facility] Last Admin: 05/07/18 06:23 Dose: 50 mg Sodium Chloride (Normal Saline -) 250 mls @ 3,000 mls/hr IV PRN PRN PRN Reason: Hypotension during Dialysis Stop: 05/07/18 13:13 Indomethacin (Indocin -) 50 mg PO BID [facility] Last Admin: 05/07/18 09:34 Dose: 50 mg Insulin Aspart (Novolog) 8 units SQ PC [facility] Last Admin: 03/15/19 09:42 Dose: 8 units Insulin Detemir (Levemir Vial) 8 units SQ HS [facility] Last Admin: 05/06/18 22:12 Dose: 8 unit Insulin Detemir (Levemir Vial) 10 units SQ DAILY@0700 [facility] Last Admin: 05/07/18 06:23 Dose: 10 units Latanoprost (Xalatan 0.005% Eye Drops -) 1 drop OS [facility] Last Admin: 05/06/18 22:13 Dose: Not Given Lisinopril (Prinivil) 5 mg PO DAILY [facility] Last Admin: 05/07/18 09:33 Dose: 5 mg Magnesium Oxide (Mag-Ox -) 400 mg PO TID [facility] Last Admin: 05/07/18 06:23 Dose: 400 mg Non-Formulary Medication (Brinzolamide [Azopt]) 1 drop OS TID [facility] Pantoprazole Sodium (Protonix -) 40 mg PO DAILY [facility] Last Admin: 05/07/18 09:33 Dose: 40 mg Sevelamer Carbonate (Renvela -) 2,400 mg PO CM [facility] Last Admin: 05/07/18 11:33 Dose: 2,400 mg 52 year old gentleman with hx of ESRDon HD (TTS), DM, Hypertension, CAD s/p CABG, presented from home with bleeding from AVF site. #ESRD on HD #Bleeding from AVF site #Arm Numbness #Hypertension #Chronic Anemia #DM #CAD no need for dialysis today AVF w/o any further bleeding discharge as per primary to resume dialysis tomorrow as outpatient Antwan Hurley DO
[2018-05-07 13:28] VITALS: BP 157/81; PULSE 90; TEMP 99.2
--- NOTE | 2018-05-07 14:55 | DS ---
Physical Examination Vital Signs: Vital Signs Temperature 99.2 F 05/07/18 13:25 Pulse Rate 90 05/07/18 13:25 Respiratory Rate 21 H 05/07/18 13:25 Blood Pressure 157/81 05/07/18 13:25 O2 Sat by Pulse Oximetry (%) 95 05/07/18 09:00 Findings/Remarks: See Progress Note for HPI, PE, labs Labs: CBC, BMP 05/07/18 06:30 05/07/18 06:30 Discharge Summary Reason For Visit: HEMORRHAGE OF ATERIOVENOUS FISTULA Current Active Problems Hemorrhage of arteriovenous fistula (Acute) Hospital Course: Pt with right arm AV fistula, started to bleed yesterday morning from the site and came to ER. In Er he was ssen by Dr. Bhatti and bleeding was stopped. Pt was monitored and had no bleeding since. He was seen by Vascular team and was cleared for discharge home with daily wound care with packing and dry dressing, VNS Condition: Improved - Instructions Diet, Activity, Other Instructions: Daily wound care with packing and dry dressing Referrals: Allen Bhatti MD [Staff Physician] - (next week in clinic( call for appointment)) Paulo Dunbar MD [Staff Physician] - (as scheduled) Disposition: HOME - Home Medications Comprehensive Discharge Medication List: Ambulatory Orders see Home Discharge Instructions Resume ALL home medications
[2018-05-08 10:11] LABS: HBSAG SCREEN Negative (Negative); HEP A AB, IGM Negative (Negative); HEP B CORE AB, TOT Negative (Negative)
== END 2018-05-07 16:21 | disposition home or self-care (01) | DRG 264 ==
LOC: JER 07:34 → JERBED 09:17 → J6S 05-07 02:38
PROVIDERS: ADMIT Specialist; ATTEND Specialist
PROC: 5A1D70Z Performance of Urinary Filtration, Intermittent, Less than 6 Hours Per Day (ICD-10-PCS; principal; 2018-05-06)
PROC: 0JBG0ZZ Excision of Right Lower Arm Subcutaneous Tissue and Fascia, Open Approach (ICD-10-PCS; 2018-05-07)
PROC: 0X3D0ZZ Control Bleeding in Right Lower Arm, Open Approach (ICD-10-PCS; 2018-05-07)
DX: T82.838A Hemorrhage due to vascular prosthetic devices, implants and grafts, initial encounter (principal); N18.6 End stage renal disease; I13.2 Hypertensive heart and chronic kidney disease with heart failure and with stage 5 chronic kidney disease, or end stage renal disease; Y84.1 Kidney dialysis as the cause of abnormal reaction of the patient, or of later complication, without mention of misadventure at the time of the procedure; E11.22 Type 2 diabetes mellitus with diabetic chronic kidney disease; Z99.2 Dependence on renal dialysis; I25.10 Atherosclerotic heart disease of native coronary artery without angina pectoris; Z95.1 Presence of aortocoronary bypass graft; I25.2 Old myocardial infarction; D64.9 Anemia, unspecified; K21.9 Gastro-esophageal reflux disease without esophagitis; Z87.891 Personal history of nicotine dependence; Z89.432 Acquired absence of left foot; M10.9 Gout, unspecified
CPT/HCPCS: 36415; 80048; 80053; 82962; 83735; 84100; 85025; 85027; 85610; 85730; 86704; 86706; 86708; 86803; 87340; 93005; 93010; 99285-25; J0885

== ENCOUNTER 2018-05-13 06:23 | Inpatient (IN) | payer OTHER ==
--- NOTE | 2018-05-13 07:08 | PDOC ---
History of Present Illness <Jeremy Agudelo - Last Filed: 05/13/18 08:37> - History of Present Illness Initial Comments: Scott Bush is a 52yo man with a PMH of CAD s/p [place] s/p CABG, CHF w/ retained EF, HTN, HLD, asthma, GERD, ESRD on HD MWF via RIJ permacath, anemia, B12 deficiency, sickle cell (disease?) and recently placed RUE AVF who presents with bright red bleeding from his fistula that noticed when he woke this morning. He is not aware of any trauma to the fistula prior to the start of bleeding. He says that the current episode is much more significant bleeding than when he was hospitalized a week ago; he is not sure whether it is pulsatile. The fistula was wrapped by EMS, and the active bleeding apparently stopped prior to arrival in the ED. Mr Bush reports 10/10 pain in his entire arm and states that his hand feels numb, but the numbness has been present since the fistula was placed. He also notes that he cannot make a fist with his right hand. He has been taking all of his medications as prescribed and has not eaten since yesterday. Per Mr Bush, his daughter already called Dr Bhatti when the bleeding first started. <Latrice Barboza - Last Filed: 05/13/18 09:02> - General Chief Complaint: AV shunt bleeding Stated Complaint: FISTULAR PROBLEM Time Seen by Provider: 05/13/18 07:07 Past History <Jeremy Agudelo - Last Filed: 05/13/18 08:37> - Past Medical History Anemia: Yes Asthma: No Cancer: No Cardiac Disorders: Yes ("silent [place]" CABG x 2 vessels 05/24/2010) CVA: No COPD: No CHF: Yes DVT: No Dementia: No Diabetes: Yes Dialysis: Yes (,,) GI Disorders: Yes (GERD) Disorders: No HTN: Yes Hypercholesterolemia: Yes Liver Disease: No Seizures: No Thyroid Disease: No - Surgical History Abdominal Surgery: No Appendectomy: No Cardiac Surgery: Yes (CABG 05/2010, cardiac stent may 2013) Cholecystectomy: No Lung Surgery: No Orthopedic Surgery: Yes (transmet amp L foot) - Family Disease History Family Disease History: Diabetes: Mother, Heart Disease: Father - Immunization History Immunization Up to Date: Yes - Suicide/Smoking/Psychosocial Hx Smoking Status: No Smoking History: Never smoked Years of Tobacco Use: 0 Have you smoked in the past 12 months: No Number of Cigarettes Smoked Daily: 2 If you are a former smoker, when did you quit?: 1990 Cigars Per Day: 0 Information on smoking cessation initiated: No 'Breaking Loose' booklet given: 06/04/12 Hx Alcohol Use: No Drug/Substance Use Hx: No Substance Use Type: None Hx Substance Use Treatment: No <Latrice Barboza - Last Filed: 05/13/18 09:02> - Past Medical History Allergies/Adverse Reactions: Allergies Allergy/AdvReac Type Severity Reaction Status Date / Time No Known Drug Allergies Allergy Verified 05/13/18 06:32 Home Medications: Ambulatory Orders Allopurinol [Zyloprim -] 100 mg PO DAILY 05/06/18 Aspirin [ASA -] 81 mg PO DAILY 05/06/18 Atorvastatin Calcium 80 mg PO HS 05/06/18 Bimatoprost [Lumigan] 1 drop OS HS 05/06/18 Brimonidine Tartrate [Alphagan 0.15% -] 1 drop OS TID 05/06/18 Brinzolamide [Azopt] 1 drop OS TID 05/06/18 Cinacalcet HCl [Sensipar -] 30 mg PO DAILY 05/06/18 Ferrous Sulfate [Feosol] 325 mg PO DAILY 05/06/18 Furosemide [Lasix -] 80 mg PO DAILY 05/06/18 Hydralazine HCl 50 mg PO TID 05/06/18 Indomethacin [Indocin -] 50 mg PO BID 05/06/18 Insulin (LOG) Aspart [NovoLOG -] 8 units SQ TID 05/06/18 Insulin Detemir [Levemir Flextouch] 8 unit SQ HS 05/06/18 Levocetirizine Dihydrochloride 10 mg PO DAILY 05/06/18 Lisinopril [Prinivil] 5 mg PO DAILY 05/06/18 Magnesium Oxide [Magox 400] 400 mg PO TID 05/06/18 Omeprazole 20 mg PO DAILY 05/06/18 Sevelamer Carbonate [Renvela -] 2,400 mg PO CM 05/06/18 Tramadol HCl/Acetaminophen [Tramadol-Acetaminophn 37.5-325] 1 each PO BID Insulin (Levemir) [Levemir Vial] 10 units SQ DAILY@0700 units 05/07/18 Review of Systems - Review of Systems Comments:: General: No fevers, no chills, no weight or appetite change, no malaise HEENT: No changes in vision, no changes in hearing, no congestion, no sore throat CV: No chest pain, no palpitations, no LE edema Pulm: No SOB, no cough, no wheezing GI: No nausea or vomiting, no change in bowel habits, no melena : No frequency, no urgency, no dysuria Musc: No back pain, no joint swelling, no recent injury Skin: No rash, no lesions, no erythema Endo: No excessive thirst, no heat/cold intolerance Heme: No unusual bruising or bleeding, no swollen glands Neuro: No syncope, no numbness/tingling, no focal weakness Vasc: See HPI Psych: No recent change in mood, no SI or HI <Latrice Barboza - Last Filed: 05/13/18 09:02> *Physical Exam - Vital Signs Last Vital Signs Temp Pulse Resp BP Pulse Ox 98.1 F 92 H 18 160/59 L 97 05/13/18 06:30 05/13/18 06:30 05/13/18 06:30 05/13/18 06:30 05/13/18 06:30 <Jeremy Agudelo - Last Filed: 05/13/18 08:37> - Vital Signs Last Vital Signs Temp Pulse Resp BP Pulse Ox 98.1 F 92 H 18 160/59 L 97 05/13/18 06:30 05/13/18 06:30 05/13/18 06:30 05/13/18 06:30 05/13/18 06:30 - Physical Exam Comments: General: Uncomfortable, mild distress HEENT: PERRL, EOMI, MMM, voice normal Cards: RRR. R chest with permacath in palce, clean bandage. Pulm: Comfortable on room air Abd: Soft, nontender, nondistended Ext: Atraumatic. ROM intact. Vasc: Extremities WWP. RUE with AVF on forearm w/ bright red bleeding soaking through gauze and kerlix bandage. Pulsatile bulge at proximal end of fistula. Surgical incision distal to bleeding site with slight dehisence; fibrinous exudate noted in wound, no erythema or drainage. Well healed surgical scars on LUE c/w previous fistula placement. Neuro: A&Ox3, CN grossly intact, normal speech, motor/sensory grossly intact and symmetric Psych: Mood appropriate to situation <Latrice Barboza - Last Filed: 05/13/18 09:02> Moderate Sedation - Procedure Monitoring Vital Signs: Procedure Monitoring Vital Signs Temperature 98.1 F 05/13/18 06:30 Pulse Rate 92 H 05/13/18 06:30 Respiratory Rate 18 05/13/18 06:30 Blood Pressure 160/59 L 05/13/18 06:30 O2 Sat by Pulse Oximetry (%) 97 05/13/18 06:30 <Jeremy Agudelo - Last Filed: 05/13/18 08:37> - Procedure Monitoring Vital Signs: Procedure Monitoring Vital Signs Temperature 98.1 F 05/13/18 06:30 Pulse Rate 92 H 05/13/18 06:30 Respiratory Rate 18 05/13/18 06:30 Blood Pressure 160/59 L 05/13/18 06:30 O2 Sat by Pulse Oximetry (%) 97 05/13/18 06:30 <Latrice Barboza - Last Filed: 05/13/18 09:02> ED Treatment Course - LABORATORY CBC & Chemistry Diagram: 05/13/18 07:42 05/13/18 07:42 - ADDITIONAL ORDERS Additional order review: 05/13/18 07:42 RBC 2.80 L MCV 92.7 MCHC 33.2 RDW 17.5 H MPV 8.2 Neutrophils % 79.0 Lymphocytes % 9.4 D Monocytes % 6.2 Eosinophils % 5.1 H Basophils % 0.3 - Medications Given in the ED: ED Medications Discontinued Medications Generic Name Dose Route Start Last Admin Trade Name Freq PRN Reason Stop Dose Admin Acetaminophen 1,000 mg 05/13/18 07:42 05/13/18 08:22 Ofirmev Injection - IVPB 05/13/18 07:43 1,000 mg ONCE ONE Administration <Jeremy Agudelo - Last Filed: 05/13/18 08:37> - LABORATORY CBC & Chemistry Diagram: 05/13/18 07:42 05/13/18 07:42 <Latrice Barboza - Last Filed: 05/13/18 09:02> Medical Decision Making - Medical Decision Making 05/13/18 07:22 Scott Bush is a 52yo man with a PMH of CAD s/p [place] s/p CABG, CHF w/ retained EF, HTN, HLD, asthma, GERD, ESRD on HD MWF via RIJ permacath, anemia, B12 deficiency, sickle cell (disease?) and recently placed RUE AVF who presents with bright red bleeding from his fistula that noticed when he woke this morning. The bleeding has now stopped, but the fistula is bulging and feels firm to palpation. - Call placed to Dr Bhatti - In case of needed intervention, preop and admission labs ordered. CBC, CMP, mag, phos, PT, PTT, type and screen, EKG, CXR - IV acetaminophen for pain. Can give morphine if needed 05/13/18 07:36 - Spoke to Dr Bhatti, who is on his way to the hospital currently. He will see Mr Bush when he arrives - 2mg morphine for 12/02 pain 05/13/18 08:23 - Bleeding restarted. Held pressure, continued bleeding - Dr Bhatti to bedside, plans to take Mr Bush to OR - Confirmed he has been NPO since yesterday at dinner Seen and discussed with Dr Agudelo. Latrice Barboza PGY1 <Latrice Barboza - Last Filed: 05/13/18 09:02> *DC/Admit/Observation/Transfer - Discharge Dispostion Decision to Admit order: Yes <Jeremy Agudelo - Last Filed: 05/13/18 08:37> - Discharge Dispostion Decision to Admit order: Yes <Latrice Barboza - Last Filed: 05/13/18 09:02> Diagnosis at time of Disposition: Hemorrhage of surgically-created arteriovenous fistula Qualifiers: Encounter type: initial encounter Qualified Code(s): T82.838A - Hemorrhage due to vascular prosthetic devices, implants and grafts, initial encounter - Discharge Dispostion Condition at time of disposition: Fair
[2018-05-13] MEDS ORDERED: ACETAMINOPHEN 1000 MG/100 ML VIAL (NON FORMULARY) IVPB ONE (07:42)
[2018-05-13 07:55] LABS: BASO % 0.3 % (0-2.0); EOS % 5.1 % (0-4.5); HEMOGLOBIN 8.6 GM/dL (11.7-16.9); LYMPH % 9.4 % (8-40); MCH 30.8 pg (25.7-33.7); MCHC 33.2 g/dl (32.0-35.9); MEAN CELL VOLUME 92.7 fl (80-96); MEAN PLT VOLUME 8.2 fl (7.5-11.1); MONO % 6.2 % (3.8-10.2); PLATELET COUNT 261 K/MM3 (134-434); RDW 17.5 % (11.9-15.9); WHITE BLOOD COUNT 6.8 K/mm3 (4.0-10.0)
[2018-05-13] MEDS ORDERED: MORPHINE SULFATE 2 MG/ML VIAL ONE (07:59)
[2018-05-13] MEDS ORDERED: ACETAMINOPHEN INJECTION 100 ML IVPB ONE (07:59)
[2018-05-13] MEDS ORDERED: morphine CARPU-JECT 2 MG/1 ML DISP.SYRIN IVPUSH ONE (08:27)
--- NOTE | 2018-05-13 08:30 | PDOC ---
Attending Attestation - Resident Resident Name: Latrice Barboza - ED Attending Attestation I have performed the following: I have examined & evaluated the patient, The case was reviewed & discussed with the resident, I agree w/resident's findings & plan, Exceptions are as noted - HPI HPI: 05/13/18 08:30 52yo man with a PMH of CAD s/p [place] s/p CABG, CHF w/ retained EF, HTN, HLD, asthma, GERD, ESRD on HD (last dialysis thursday) presents with bleeding av shunt the patient states he woke up this morning with his arm bleeding from his fistula. Patient endorses some pain to his arm. - Physicial Exam PE: 05/13/18 08:33 general: no acute distress CHEST: rrr, no mrg, + line on R chest PULM: CTA b/l, no wheezes ABD: soft nontender Extremity: fistula on RUE without thrill, +pulsatile, raw/ulcerated apperaance with active bleeding, +faint pulse papalble on radial, extermity warm to touch, fistula on LUE without thrill - Medical Decision Making 05/13/18 08:33 bleeding fistula - dw dr. Bhatti - will take to OR preop labs obtained will admit to dr. Dunbar;'s service Heart Score/ECG Review - ECG Impressions Comment:: 05/13/18 08:49 Twelve-lead EKG was performed and reviewed by me. There is normal sinus rhythm with a normal rate. Rate of 97 The axis is normal. The intervals are normal.
[2018-05-13] MEDS ORDERED: oxyCODONE HCL 5 MG TABLET PO PRN (08:36)
[2018-05-13] MEDS ORDERED: PROMETHAZINE HCL 25 MG/1 ML VIAL IVPB PRN ×2 (08:36→13:21)
[2018-05-13] MEDS ORDERED: ONDANSETRON 4 MG/2 ML VIAL IVPUSH PRN ×2 (08:36→13:21)
[2018-05-13 08:39] LABS: ALBUMIN 3.2 g/dl (3.4-5.0); ALK PHOS 671 U/L (45-117); ANION GAP 10 MMOL/L (8-16); BILIRUBIN,TOTAL 0.2 mg/dL (0.2-1); BLOOD UREA NITROGEN 65 mg/dL (7-18); CALCIUM 7.2 mg/dL (8.5-10.1); CHLORIDE 104 mmol/L (98-107); CO2 21 mmol/L (21-32); GLUCOSE,RANDOM 242 mg/dL (74-106); MAGNESIUM 2.3 mg/dL (1.8-2.4); PHOSPHOROUS 5.7 mg/dL (2.5-4.9); POTASSIUM 5.4 mmol/L (3.5-5.1); SGOT/AST 9 U/L (15-37); SGPT/ALT 9 U/L (13-61); SODIUM 136 mmol/L (136-145); TOT PROT 7.7 g/dl (6.4-8.2)
--- NOTE | 2018-05-13 08:43 | CONSULT ---
Consult Reason for Consultation:: 52 year old man with ESRD on HD. He has a right arm AV fistula created 1 month ago which had a local wound infection. Today he developed pulsatile bleeding from the wound. - Past Medical History Cardio/Vascular: Yes: CAD, CHF (normal ejection fraction; poor LV compliance; no valvular abnormalities), HTN, Hyperlipdemia Pulmonary: Yes: Asthma, Pneumonia Gastrointestinal: Yes: GERD, GI Bleed Renal/: Yes: Renal Failure, Hemodialysis (ESRD on HD MWF via right IJ perm-a- cath) Psych: Yes: Anxiety Musculoskeletal: Yes: Other (left metatarsal amputation) Rheumatology: Yes: Gout Endocrine: Yes: Diabetes Mellitus Additional Medical History: as above in HPI; L eye blindness; on renal transplant list at [facility]. 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 History of Recent Travel: No Home Medications - Allergies Allergies/Adverse Reactions: Allergies Allergy/AdvReac Type Severity Reaction Status Date / Time No Known Drug Allergies Allergy Verified 05/13/18 06:32 - Home Medications Home Medications: Ambulatory Orders Allopurinol [Zyloprim -] 100 mg PO DAILY 05/06/18 Aspirin [ASA -] 81 mg PO DAILY 05/06/18 Atorvastatin Calcium 80 mg PO HS 05/06/18 Bimatoprost [Lumigan] 1 drop OS HS 05/06/18 Brimonidine Tartrate [Alphagan 0.15% -] 1 drop OS TID 05/06/18 Brinzolamide [Azopt] 1 drop OS TID 05/06/18 Cinacalcet HCl [Sensipar -] 30 mg PO DAILY 05/06/18 Ferrous Sulfate [Feosol] 325 mg PO DAILY 05/06/18 Furosemide [Lasix -] 80 mg PO DAILY 05/06/18 Hydralazine HCl 50 mg PO TID 05/06/18 Indomethacin [Indocin -] 50 mg PO BID 05/06/18 Insulin (LOG) Aspart [NovoLOG -] 8 units SQ TID 05/06/18 Insulin Detemir [Levemir Flextouch] 8 unit SQ HS 05/06/18 Levocetirizine Dihydrochloride 10 mg PO DAILY 05/06/18 Lisinopril [Prinivil] 5 mg PO DAILY 05/06/18 Magnesium Oxide [Magox 400] 400 mg PO TID 05/06/18 Omeprazole 20 mg PO DAILY 05/06/18 Sevelamer Carbonate [Renvela -] 2,400 mg PO CM 05/06/18 Tramadol HCl/Acetaminophen [Tramadol-Acetaminophn 37.5-325] 1 each PO BID Insulin (Levemir) [Levemir Vial] 10 units SQ DAILY@0700 units 05/07/18 Family Disease History - Family Disease History Family Disease History: Diabetes: Father, Mother, Other: Father, Mother Physical Exam Vital Signs: Vital Signs Temperature 98.1 F 05/13/18 06:30 Pulse Rate 92 H 05/13/18 06:30 Respiratory Rate 18 05/13/18 06:30 Blood Pressure 160/59 L 05/13/18 06:30 O2 Sat by Pulse Oximetry (%) 97 05/13/18 06:30 Extremities: Yes: Other (Right antecubital wound with bright red blood.) Labs: CBC, BMP 05/13/18 07:42 05/13/18 07:42 Problem List - Problems (1) Hemorrhage of surgically-created arteriovenous fistula Assessment/Plan: To OR for wound exoploration and repair brachial artery. Code(s): T82.838A - HEMORRHAGE DUE TO VASCULAR PROSTH DEV/GRFT, INIT Qualifiers: Encounter type: initial encounter Qualified Code(s): T82.838A - Hemorrhage due to vascular prosthetic devices, implants and grafts, initial encounter
[2018-05-13] MEDS ORDERED: SODIUM CHLORIDE 1,000 ML IV SCH ×2 (08:45→13:21)
[2018-05-13] MEDS ORDERED: HEPARIN NA (PORCINE) 5,000 UNITS/ML 1ML VIAL ONE (08:46)
[2018-05-13] MEDS ORDERED: LIDOCAINE HCL 1%, 10 MG/ML (20ML VIAL) ONE (08:46)
[2018-05-13] MEDS ORDERED: LIDOCAINE HCL/PF 2% SDV 5ML VIAL ONE (08:55)
[2018-05-13] MEDS ORDERED: PROPOFOL 20 ML ONE ×3 (08:55→11:01)
[2018-05-13] MEDS ORDERED: VANCOMYCIN 1,000 MG VIAL (RESTRICTED TO ID ONLY) ONE (09:08)
[2018-05-13] MEDS ORDERED: VANCOMYCIN 1,000 MG VIAL (RESTRICTED TO ID ONLY) IVPB ONE (09:09)
[2018-05-13 09:10] LABS: CREATININE 8.1 mg/dL (0.55-1.3)
[2018-05-13] MEDS ORDERED: DEXAMETHASONE SOD PHOSPHATE 4 MG/1 ML VIAL ONE (09:10)
[2018-05-13] MEDS ORDERED: LIDOCAINE HCL 1%, 10 MG/ML (50 mL VIAL) IJ ONE (09:18)
[2018-05-13 09:21] LABS: INR 1.06 (0.83-1.09); PROTHROMBIN TIME (PATIENT) 12.5 SEC (9.7-13.0)
[2018-05-13 09:24] LABS: ACTIVATED PTT 28.4 SECONDS (25.2-36.5)
[2018-05-13] MEDS ORDERED: DESFLURANE GAS 240 ML BOTTLE IH ONE (10:36)
[2018-05-13] MEDS ORDERED: SEVOFLURANE 250 ML BTL ONE (10:37)
[2018-05-13] MEDS ORDERED: KETOROLAC TROMETHAMINE 30 MG/1 ML VIAL ONE (10:45)
[2018-05-13] MEDS ORDERED: POVIDONE-IODINE OINTMENT 10% - 28.4 GM TUBE ONE (10:54)
[2018-05-13] MEDS ORDERED: BUPIVACAINE HCL/PF 0.5% (5MG/ML) 10 ML VIAL ONE (10:54)
--- NOTE | 2018-05-13 11:12 | OP ---
Operative Note - Note: Operative Date: 05/13/18 Pre-Operative Diagnosis: Bleeding right arm wound Operation: Ligation AV fistula, repair brachial artery Findings: Bleeding from veins around brachial artery and basilic vein fistula. Arteriovenous anastomosis intact. No evidence for infection Post-Operative Diagnosis: Same as Pre-op Surgeon: Allen Bhatti Fishing Vessel Operator: Kevin Wiggins Anesthesiologist/NAVY AIRSPACE OFFICER: Pranay Quinn Anesthesia: General Estimated Blood Loss (mls): 500
--- NOTE | 2018-05-13 11:38 | SURG ---
Surgery Firearms Specialist Note Firearms Specialist: Kevin Wiggins PA-C Date of Service: 05/13/18 Diagnosis: Bleeding right arm wound Procedure: Ligation AV fistula, repair brachial artery I was present for the entirety of the operative procedure. For further detail, please refer to operative report. Visit type - Case Type Case Type: ED Admission - Emergency Emergency Visit: Yes ED Registration Date: 05/13/18 Care time: The patient presented to the Emergency Department on the above date and was hospitalized for further evaluation of their emergent condition. - New patient This patient is new to me today: Yes Date on this admission: 05/13/18
--- NOTE | 2018-05-13 12:03 | EKG ---
Test Reason : Blood Pressure : / mmHG Vent. Rate : 097 BPM Atrial Rate : 097 BPM P-R Int : 174 ms QRS Dur : 092 ms QT Int : 366 ms P-R-T Axes : 066 027 086 degrees QTc Int : 464 ms NORMAL SINUS RHYTHM LOW VOLTAGE QRS CANNOT RULE OUT ANTEROSEPTAL INFARCT (CITED ON OR BEFORE 13-DEC-2009) ABNORMAL ECG WHEN COMPARED WITH ECG OF 06-MAY-2018 09:02, PREMATURE VENTRICULAR COMPLEXES ARE NO LONGER PRESENT QUESTIONABLE CHANGE IN INITIAL FORCES OF ANTERIOR LEADS NONSPECIFIC T WAVE ABNORMALITY HAS REPLACED INVERTED T WAVES IN LATERAL LEADS Confirmed by TOMY NGUYEN MD ([id number]) on 05/13/2018 12:03:21 PM Referred By: Confirmed By:TOMY NGUYEN MD
[2018-05-13] MEDS: INSULIN (NOVOLOG) ASPART 100 UNITS/ML 10ML VIAL SQ SCH ×2 (14:00→18:05)
[2018-05-13] MEDS ORDERED: PATIENT'S OWN MEDICATION (NON-FORMULARY) (Brinzolamide [Azopt] 1 DROP) OS SCH (14:00)
[2018-05-13] MEDS: MAGNESIUM OXIDE 400 MG TABLET (FP) PO SCH ×2 (14:00→21:35)
[2018-05-13] MEDS: BRIMONIDINE TARTRATE 0.15% OPHTHALMIC 5 ML BOTTLE OS SCH ×2 (14:00→21:35)
[2018-05-13] MEDS: hydrALAZINE HCL 50 MG TABLET (FP) PO SCH ×2 (14:00→21:35)
--- NOTE | 2018-05-13 16:56 | HP ---
Admitting History and Physical - Primary Care Physician PCP: Paulo Dunbar - Admission Chief Complaint: Arm bleed History of Present Illness: Pt with ESRD on HD, has right forearm AV fistula that started to bleed this AM. Pt come to ER and was evaluated by Dr. Bhatti and taken to OR for bleeding control; pt received two units of PRBC in OR. Pt is in recovery room now. History Source: Patient - Past Medical History Cardiovascular: Yes: CAD, CHF, HTN, Hyperlipdemia Pulmonary: Yes: Asthma, Pneumonia Gastrointestinal: Yes: GERD, GI Bleed Renal/: Yes: Renal Failure, Hemodialysis (ESRD on HD MWF via right IJ perm-a- cath) Heme/Onc: No: Anemia, B12 Deficiency, Bleeding Disorder, Cancer, Current Chemotherapy, Current Radiation Therapy, Hemochromatosis, Hypercoaguable State, Myeloproliferative Synd, Sickle Cell Disease, Sickle Cell Trait, Thrombocytopenia, Other Psych: Yes: Anxiety Musculoskeletal: Yes: Other (left metatarsal amputation) Rheumatology: Yes: Gout Endocrine: Yes: Diabetes Mellitus - Past Surgical History Past Surgical History: Yes: Amputation (Left Transmetatarsal), AV Fistula/Graft , CABG (05/2010), Stent (s/p cardiac cath with stent placement) - Smoking History Smoking history: Never smoked Have you smoked in the past 12 months: No Aproximately how many cigarettes per day: 2 If you are a former smoker, when did you quit?: 1989 - Alcohol/Substance Use Hx Alcohol Use: No History of Substance Use: reports: None - Social History ADL: Independent 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 History of Recent Travel: No Home Medications - Allergies Allergies/Adverse Reactions: Allergies Allergy/AdvReac Type Severity Reaction Status Date / Time No Known Drug Allergies Allergy Verified 05/13/18 06:32 - Home Medications Home Medications: Ambulatory Orders Allopurinol [Zyloprim -] 100 mg PO DAILY 05/06/18 Aspirin [ASA -] 81 mg PO DAILY 05/06/18 Atorvastatin Calcium 80 mg PO HS 05/06/18 Bimatoprost [Lumigan] 1 drop OS HS 05/06/18 Brimonidine Tartrate [Alphagan 0.15% -] 1 drop OS TID 05/06/18 Brinzolamide [Azopt] 1 drop OS TID 05/06/18 Cinacalcet HCl [Sensipar -] 30 mg PO DAILY 05/06/18 Ferrous Sulfate [Feosol] 325 mg PO DAILY 05/06/18 Furosemide [Lasix -] 80 mg PO DAILY 05/06/18 Hydralazine HCl 50 mg PO TID 05/06/18 Indomethacin [Indocin -] 50 mg PO BID 05/06/18 Insulin (LOG) Aspart [NovoLOG -] 8 units SQ TID 05/06/18 Insulin Detemir [Levemir Flextouch] 8 unit SQ HS 05/06/18 Levocetirizine Dihydrochloride 10 mg PO DAILY 05/06/18 Lisinopril [Prinivil] 5 mg PO DAILY 05/06/18 Magnesium Oxide [Magox 400] 400 mg PO TID 05/06/18 Omeprazole 20 mg PO DAILY 05/06/18 Sevelamer Carbonate [Renvela -] 2,400 mg PO CM 05/06/18 Tramadol HCl/Acetaminophen [Tramadol-Acetaminophn 37.5-325] 1 each PO BID Insulin (Levemir) [Levemir Vial] 10 units SQ DAILY@0700 units 05/07/18 Family Disease History - Family Disease History Family Disease History: Diabetes: Father, Mother, Other: Father, Mother Review of Systems - Review of Systems Constitutional: denies: Chills, Fever Eyes: denies: Recent Change in Vision HENT: denies: Difficult Swallowing, Ear Discharge, Nasal Congestion, Throat Pain Neck: denies: Pain on Movement, Stiffness, Tenderness Cardiovascular: denies: Chest Pain, Edema, Palpitations Respiratory: denies: Cough, SOB, Wheezing Gastrointestinal: denies: Abdominal Pain, Diarrhea, Vomiting Genitourinary: denies: Discharge, Flank Pain Musculoskeletal: denies: Back Pain, Joint Swelling Integumentary: denies: Blister, Bruising, Pruritis Neurological: denies: Change in LOC, Change in Speech, Confusion, Weakness Endocrine: denies: Excessive Sweating, Intolerance to Cold Hematology/Lymphatic: denies: Easily Bruised, Excessive Bleeding Psychiatric: denies: Anxiety, Hallucinations Physical Examination Vital Signs: Vital Signs Temperature 98.1 F 05/13/18 06:30 Pulse Rate 88 05/13/18 12:15 Respiratory Rate 26 H 05/13/18 12:15 Blood Pressure 154/68 05/13/18 12:15 O2 Sat by Pulse Oximetry (%) 100 05/13/18 12:15 Constitutional: Yes: No Distress, Calm Eyes: Yes: EOM Intact. No: Tearing HENT: Yes: Pharyngeal Erythema. No: Epistaxis, Rhinnorhea Neck: Yes: Trachea Midline. No: Lymphadenopathy Cardiovascular: Yes: Regular Rate and Rhythm, S1, S2 Respiratory: Yes: Regular, CTA Bilaterally Gastrointestinal: Yes: Normal Bowel Sounds, Soft, Abdomen, Obese. No: Tenderness ...Rectal Exam: Yes: Deferred Renal/: No: Bladder Distention, Francis Present Musculoskeletal: No: Joint Stiffness, Joint Swelling Extremities: No: Cold, Cool, Cyanosis Edema: No Integumentary: No: Bruising, Erythema Neurological: Yes: Other (motor and sensory examination is symmetric in UE/ LE/ face.). No: Alert, Oriented Psychiatric: Yes: Alert, Oriented Labs: CBC, BMP 05/13/18 07:42 05/13/18 07:42 Imaging - Results Chest X-ray: Report Reviewed Problem List - Problems (1) Bleeding from wound Assessment/Plan: of right forearm Code(s): T14.8XXA - OTHER INJURY OF UNSPECIFIED BODY REGION, INITIAL ENCOUNTER (2) ESRD on hemodialysis Code(s): N18.6 - END STAGE RENAL DISEASE; Z99.2 - DEPENDENCE ON RENAL DIALYSIS (3) CAD (coronary artery disease) Code(s): I25.10 - ATHSCL HEART DISEASE OF [place] CORONARY ARTERY W/O ANG PCTRS (4) CHF (congestive heart failure) Code(s): I50.9 - HEART FAILURE, UNSPECIFIED (5) DM (diabetes mellitus), type 2 with renal complications Code(s): E11.29 - TYPE 2 DIABETES MELLITUS W OTH DIABETIC KIDNEY COMPLICATION (6) Anemia Code(s): D64.9 - ANEMIA, UNSPECIFIED (7) History of coronary artery bypass graft Code(s): Z95.1 - PRESENCE OF AORTOCORONARY BYPASS GRAFT (8) Hyperlipemia Code(s): E78.5 - HYPERLIPIDEMIA, UNSPECIFIED Assessment/Plan Vascular Surgery evaluation and intervention is appreciated Pain control Renal consult, case was reviewed [facility] Dr. Hurley; pt for HD in AM AM labs Case was d/w pt's recovery room nurse
[2018-05-13] MEDS: oxyCODONE HCL 5 MG TABLET PO PRN (17:55)
[2018-05-13] MEDS ORDERED: oxyCODONE HCL 5 MG TABLET ONE (17:57)
[2018-05-13] MEDS: SEVELAMER CARBONATE 800 MG TAB (FP) PO SCH (18:55)
[2018-05-13] MEDS: INDOMETHACIN 50 MG CAPSULE PO SCH (21:35)
[2018-05-13] MEDS: ATORVASTATIN CA 80 MG TABLET (FP) PO SCH (21:35)
[2018-05-13] MEDS: LATANOPROST 0.005% OPHTH SOLN 2.5ML BOTTLE OS SCH (21:36)
[2018-05-13] MEDS: INSULIN (LEVEMIR) 100 UNITS/ML UNITS SQ SCH (21:37)
[2018-05-13] MEDS ORDERED: PATIENT'S OWN MEDICATION (NON-FORMULARY) (Tramadol Hcl/Acetaminophen [Tramadol-Acetaminoph PO SCH (22:00)
[2018-05-13] MEDS ORDERED: CHLORHEXIDINE GLUCONATE 4% CLEANSER FOR DECOLONIZATION TP SCH (22:00)
[2018-05-13] MEDS ORDERED: INSULIN SLIDING SCALE (NOVOLOG) 1 VIAL SQ SCH (22:00)
[2018-05-13] MEDS ORDERED: MUPIROCIN 2% TOPICAL OINTMENT FOR DECOLONIZATION NS SCH (22:00)
[2018-05-14 05:39] VITALS: BMI 36.4
[2018-05-14] MEDS: INSULIN (LEVEMIR) 100 UNITS/ML UNITS SQ SCH ×2 (06:31→21:03)
[2018-05-14] MEDS: BRIMONIDINE TARTRATE 0.15% OPHTHALMIC 5 ML BOTTLE OS SCH ×3 (06:32→21:01)
[2018-05-14] MEDS: INSULIN (NOVOLOG) ASPART 100 UNITS/ML 10ML VIAL SQ SCH ×3 (06:32→17:12)
[2018-05-14] MEDS: hydrALAZINE HCL 50 MG TABLET (FP) PO SCH ×3 (06:32→21:02)
[2018-05-14] MEDS: MAGNESIUM OXIDE 400 MG TABLET (FP) PO SCH ×3 (06:32→21:02)
--- NOTE | 2018-05-14 08:22 | PN ---
Progress Note (short form) - Note Progress Note: Surgery POD #1 right arm Ligation AV fistula, repair brachial artery. Patient seen and examined at bedside with no complaints. He is tolerating his diet and denies any CP, SOB, N/V/D fever or chills Vital Signs Temp 97.5 F L 05/14/18 06:00 Pulse 82 05/14/18 06:00 Resp 20 05/14/18 06:00 BP 139/75 05/14/18 06:00 Pulse Ox 100 05/13/18 21:00 Intake & Output 05/13/18 05/13/18 05/14/18 11:59 23:59 11:59 Intake Total 1950 10 Output Total 500 0 Balance 1450 10 Weight 205 lb 232 lb 9.6 oz 232 lb 9.6 oz Intake: IV 1250 10 Saline lock 10 Blood Product 700 Output: Urine 0 Estimated Blood Loss 500 Other: Voiding Method Urinal Height 5 ft 7 in 5 ft 7 in Body Mass Index (BMI) 32.1 36.4 Weight Measurement Method Standing Scale Weight Measurement Method Est/Stated by Patient CBC, BMP 05/13/18 07:42 05/13/18 07:42 PE: A&Ox3, NAD Unlabored resp on RA Right UE Incision c/d/i with sutures in situ, diffuse edema throughout appropriate to status. No tracking erythema, evidence of collection or active d/ c. [place] drain in place with no active draining. Right hand is warm and well perfused with +1 radial pulse. moving hand and wrist without limitation. Problem List - Problems (1) Hemorrhage of surgically-created arteriovenous fistula Assessment/Plan: POD#1 patient doing well. 1) Keep dressing clean and dry 2) OOB as tolerated with assist 3) HD and transfuse per renal 4) DVT and GI prophylaxis. Evaluation and plan discussed with Dr Bhatti Code(s): T82.838A - HEMORRHAGE DUE TO VASCULAR PROSTH DEV/GRFT, INIT Qualifiers: Encounter type: initial encounter Qualified Code(s): T82.838A - Hemorrhage due to vascular prosthetic devices, implants and grafts, initial encounter
[2018-05-14] MEDS: SEVELAMER CARBONATE 800 MG TAB (FP) PO SCH ×3 (08:53→17:21)
[2018-05-14] MEDS: oxyCODONE HCL 5 MG TABLET PO PRN (08:56)
[2018-05-14] MEDS: CINACALCET HCL 30 MG TAB (FP) PO SCH (10:00)
[2018-05-14 10:50] LABS: HEMATOCRIT 23.7 % (35.4-49); HEMOGLOBIN 7.9 GM/dL (11.7-16.9); MCH 30.9 pg (25.7-33.7); MCHC 33.3 g/dl (32.0-35.9); MEAN CELL VOLUME 92.7 fl (80-96); MEAN PLT VOLUME 8.1 fl (7.5-11.1); PLATELET COUNT 208 K/MM3 (134-434); RBC 2.56 M/mm3 (4.00-5.60); RDW 16.8 % (11.9-15.9); WHITE BLOOD COUNT 5.4 K/mm3 (4.0-10.0)
[2018-05-14] MEDS: INDOMETHACIN 50 MG CAPSULE PO SCH ×2 (10:56→21:02)
[2018-05-14] MEDS ORDERED: SODIUM CHLORIDE 250 ML IV PRN (11:00)
[2018-05-14] MEDS ORDERED: EPOETIN ALFA 10,000 UNIT/1 ML VIAL IVPUSH ONE (11:00)
[2018-05-14 11:38] LABS: ANION GAP 9 MMOL/L (8-16); BLOOD UREA NITROGEN 88 mg/dL (7-18); CALCIUM 7.8 mg/dL (8.5-10.1); CHLORIDE 102 mmol/L (98-107); CO2 22 mmol/L (21-32); GLUCOSE,RANDOM 227 mg/dL (74-106); POTASSIUM 5.8 mmol/L (3.5-5.1); SODIUM 133 mmol/L (136-145)
[2018-05-14 11:43] LABS: CREATININE 9.7 mg/dL (0.55-1.3)
--- NOTE | 2018-05-14 11:45 | PN ---
Progress Note (short form) - Note Progress Note: Renal follow up for ESRD on HD This is a 52 year old gentleman with hx of ESRD on HD who presents with bleeding from new AVF site. Pt with recent admission for same complaints. This time he went to the OR and had bleeding from veins around brachial artery and basilic vein fistula. s/p PRBC transfusion yesterday. Currently on dialysis. UF goal is 3.5L. BP stable. Hgb is 7.9, will give additional PRBC with HD today. Vital Signs Temperature 97.5 F L 05/14/18 06:00 Pulse Rate 80 05/14/18 10:30 Respiratory Rate 18 05/14/18 10:30 Blood Pressure 119/58 L 05/14/18 10:30 O2 Sat by Pulse Oximetry (%) 100 05/13/18 21:00 Intake & Output 05/11/18 05/12/18 05/13/18 05/14/18 23:59 23:59 23:59 23:59 Intake Total 1960 Output Total 500 Balance 1460 Weight 105.506 kg 105.506 kg NAD awake and alert neck supple, no JVD RRR, No M/R CTA, no rales or wheeze soft NT/ND trace LE edema right IJ permaath in place right ARM AVF with dressing over it CBC, BMP 05/14/18 10:00 05/14/18 10:00 Laboratory Tests 05/07/18 05/14/18 06:30 10:00 Calcium 8.1 L 7.8 L Current Medications Allopurinol (Zyloprim -) 100 mg PO DAILY [facility] Aspirin (Asa -) 81 mg PO DAILY [facility] Atorvastatin Calcium (Lipitor -) 80 mg PO HS [facility] Last Admin: 05/13/18 21:35 Dose: 80 mg Brimonidine Tartrate (Alphagan 0.15% -) 1 drop OS TID [facility] Last Admin: 05/14/18 06:32 Dose: 1 drop Chlorhexidine Gluconate (Hibiclens For Decolonization -) 1 applic TP HS [facility] Cinacalcet (Sensipar -) 30 mg PO DAILY [facility] Ferrous Sulfate (Feosol -) 325 mg PO DAILY [facility] Furosemide (Lasix -) 80 mg PO DAILY [facility] Hydralazine HCl (Apresoline -) 50 mg PO TID [facility] Last Admin: 05/14/18 06:32 Dose: 50 mg Indomethacin (Indocin -) 50 mg PO BID [facility] Last Admin: 05/13/18 21:35 Dose: 50 mg Insulin Aspart (Novolog Vial) 8 units SQ TIDAC [facility] Last Admin: 05/14/18 06:32 Dose: 8 units Insulin Aspart (Novolog Vial Sliding Scale -) 1 vial SQ [facility]; Protocol Insulin Detemir (Levemir Vial) 10 units SQ DAILY@0700 [facility] Last Admin: 05/14/18 06:31 Dose: 10 units Insulin Detemir (Levemir Vial) 8 units SQ [facility] Last Admin: 05/13/18 21:37 Dose: 8 units Latanoprost (Xalatan 0.005% Eye Drops -) 1 drop OS [facility] Last Admin: 05/13/18 21:36 Dose: 1 drop Lisinopril (Prinivil) 5 mg PO DAILY [facility] Loratadine (Claritin -) 10 mg PO DAILY [facility] Magnesium Oxide (Mag-Ox -) 400 mg PO TID [facility] Last Admin: 05/14/18 06:32 Dose: 400 mg Mupirocin (Bactroban Ointment (For Decolonization) -) 1 applic NS BID [facility] Stop: 05/18/18 21:59 Non-Formulary Medication (Brinzolamide [Azopt]) 1 drop OS TID [facility] Oxycodone HCl (Roxicodone -) 10 mg PO Q4H PRN PRN Reason: PAIN LEVEL 6-10 Last Admin: 05/14/18 08:56 Dose: 10 mg Pantoprazole Sodium (Protonix -) 20 mg PO DAILY [facility] Promethazine HCl (Phenergan Injection -) 12.5 mg IVPB Q6H PRN PRN Reason: NAUSEA-FOR RESCUE AFTER 15 MIN Stop: 05/14/18 13:20 Sevelamer Carbonate (Renvela -) 2,400 mg PO [facility] Last Admin: 05/13/18 18:55 Dose: 2,400 mg 52 year old gentleman with hx of ESRDon HD (TTS), DM, Hypertension, CAD s/p CABG, presented from home with bleeding from AVF site. #ESRD on HD #Bleeding from AVF site #Arm Numbness #Hypertension #Chronic Anemia #DM #CAD Tolerating dialysis this am, UF goal ~ 3.5L as tolerated s/p operative intervention for bleeding from AVF site yesterday will transfuse additional PRBC with HD today Continue Lisinopril, hydralazine and Lasix for BP control will give DAVON with dialysis as well monitor AVF site for further bleeding Thank you Antwan Espinoza DO
[2018-05-14 15:49] LABS: CREATININE 3.1 mg/dL (0.55-1.3)
[2018-05-14] MEDS: ALLOPURINOL 100 MG TABLET (FP) PO SCH (15:59)
[2018-05-14] MEDS: FERROUS SO4 325 MG TABLET (FP) PO SCH (15:59)
[2018-05-14] MEDS: LORATADINE 10 MG TABLET PO SCH (15:59)
[2018-05-14] MEDS: PANTOPRAZOLE 20 MG TABLET (FP) PO SCH (15:59)
[2018-05-14] MEDS: ASPIRIN 81 MG CHEWABLE TABLETS PO SCH (15:59)
[2018-05-14] MEDS: LISINOPRIL 5 MG TABLET (FP) PO SCH (15:59)
[2018-05-14] MEDS: FUROSEMIDE 40 MG TABLET (FP) PO SCH (15:59)
--- NOTE | 2018-05-14 16:11 | PN ---
Progress Note (short form) - Note Progress Note: Post op day #1.S/P Exploration of right arm A-V fistula with repair of brachial artery and ligation of fistula under GA uneventful.Patient stable.No any anesthesia related problem.Patient Dc from the anesthesia care.
[2018-05-14] MEDS ORDERED: INSULIN (NOVOLOG) ASPART 100 UNITS/ML 10ML VIAL ONE (17:11)
--- NOTE | 2018-05-14 19:48 | PN ---
Progress Note, Physician History of Present Illness: Pt w/o arm bleed Pt w/o fever, chills, CP, palp, SOB. - Current Medication List Current Medications: Active Medications Allopurinol (Zyloprim -) 100 mg PO DAILY [facility] Last Admin: 05/14/18 15:59 Dose: 100 mg Aspirin (Asa -) 81 mg PO DAILY [facility] Last Admin: 05/14/18 15:59 Dose: 81 mg Atorvastatin Calcium (Lipitor -) 80 mg PO [facility] Last Admin: 05/13/18 21:35 Dose: 80 mg Brimonidine Tartrate (Alphagan 0.15% -) 1 drop OS TID [facility] Last Admin: 05/14/18 15:54 Dose: 1 drop Chlorhexidine Gluconate (Hibiclens For Decolonization -) 1 applic TP [facility] Cinacalcet (Sensipar -) 30 mg PO DAILY [facility] Last Admin: 05/14/18 10:00 Dose: 30 mg Ferrous Sulfate (Feosol -) 325 mg PO DAILY [facility] Last Admin: 05/14/18 15:59 Dose: 325 mg Furosemide (Lasix -) 80 mg PO DAILY [facility] Last Admin: 05/14/18 15:59 Dose: Not Given Hydralazine HCl (Apresoline -) 50 mg PO TID [facility] Last Admin: 05/14/18 15:54 Dose: 50 mg Indomethacin (Indocin -) 50 mg PO BID [facility] Last Admin: 05/14/18 10:56 Dose: 50 mg Insulin Aspart (Novolog Vial) 8 units SQ TIDAC [facility] Last Admin: 05/14/18 17:12 Dose: 8 units Insulin Aspart (Novolog Vial Sliding Scale -) 1 vial SQ [facility]; Protocol Insulin Detemir (Levemir Vial) 10 units SQ DAILY@0700 [facility] Last Admin: 05/14/18 06:31 Dose: 10 units Insulin Detemir (Levemir Vial) 8 units SQ [facility] Last Admin: 05/13/18 21:37 Dose: 8 units Latanoprost (Xalatan 0.005% Eye Drops -) 1 drop OS [facility] Last Admin: 05/13/18 21:36 Dose: 1 drop Lisinopril (Prinivil) 5 mg PO DAILY [facility] Last Admin: 05/14/18 15:59 Dose: Not Given Loratadine (Claritin -) 10 mg PO DAILY [facility] Last Admin: 05/14/18 15:59 Dose: 10 mg Magnesium Oxide (Mag-Ox -) 400 mg PO TID [facility] Last Admin: 05/14/18 15:54 Dose: 400 mg Mupirocin (Bactroban Ointment (For Decolonization) -) 1 applic NS BID [facility] Stop: 05/18/18 21:59 Non-Formulary Medication (Brinzolamide [Azopt]) 1 drop OS TID [facility] Oxycodone HCl (Roxicodone -) 10 mg PO Q4H PRN PRN Reason: PAIN LEVEL 6-10 Last Admin: 05/14/18 08:56 Dose: 10 mg Pantoprazole Sodium (Protonix -) 20 mg PO DAILY [facility] Last Admin: 05/14/18 15:59 Dose: 20 mg Sevelamer Carbonate (Renvela -) 2,400 mg PO CM [facility] Last Admin: 05/14/18 17:21 Dose: 2,400 mg - Objective Vital Signs: Vital Signs Temperature 99.3 F 05/14/18 17:00 Pulse Rate 103 H 05/14/18 17:00 Respiratory Rate 20 05/14/18 17:00 Blood Pressure 135/77 05/14/18 17:00 O2 Sat by Pulse Oximetry (%) 100 05/14/18 09:00 Constitutional: Yes: No Distress, Calm Cardiovascular: Yes: Regular Rate and Rhythm, S1, S2 Respiratory: Yes: Regular, CTA Bilaterally. No: Rales Gastrointestinal: Yes: Normal Bowel Sounds, Soft. No: Tenderness Extremities: Yes: Other (right arm dressing in clean) Edema: No Neurological: Yes: Alert, Oriented Labs: CBC, BMP 05/14/18 10:00 05/14/18 14:30 INR, PTT INR 1.06 (0.83-1.09) 05/13/18 07:42 Problem List - Problems (1) Bleeding from wound Code(s): T14.8XXA - OTHER INJURY OF UNSPECIFIED BODY REGION, INITIAL ENCOUNTER (2) ESRD on hemodialysis Code(s): N18.6 - END STAGE RENAL DISEASE; Z99.2 - DEPENDENCE ON RENAL DIALYSIS (3) CAD (coronary artery disease) Code(s): I25.10 - ATHSCL HEART DISEASE OF [place] CORONARY ARTERY W/O ANG PCTRS (4) CHF (congestive heart failure) Code(s): I50.9 - HEART FAILURE, UNSPECIFIED (5) DM (diabetes mellitus), type 2 with renal complications Code(s): E11.29 - TYPE 2 DIABETES MELLITUS W OTH DIABETIC KIDNEY COMPLICATION (6) Anemia Code(s): D64.9 - ANEMIA, UNSPECIFIED (7) History of coronary artery bypass graft Code(s): Z95.1 - PRESENCE OF AORTOCORONARY BYPASS GRAFT (8) Hyperlipemia Code(s): E78.5 - HYPERLIPIDEMIA, UNSPECIFIED Assessment/Plan Vascular Surgery evaluation and intervention is appreciated Pain control Renal consult is appreciated. s/p 3 units PRBC transfusion. ID consult AM labs Case was d/w pt's nurse
[2018-05-14] MEDS ORDERED: SENNOSIDES 8.6MG TABLET (FP) PO ONE (20:15)
[2018-05-14] MEDS: LATANOPROST 0.005% OPHTH SOLN 2.5ML BOTTLE OS SCH (21:01)
[2018-05-14] MEDS: ATORVASTATIN CA 80 MG TABLET (FP) PO SCH (21:02)
[2018-05-14] MEDS: INSULIN SLIDING SCALE (NOVOLOG) 1 VIAL SQ SCH (21:04)
[2018-05-15] MEDS: BRIMONIDINE TARTRATE 0.15% OPHTHALMIC 5 ML BOTTLE OS SCH ×3 (06:06→22:59)
[2018-05-15] MEDS: hydrALAZINE HCL 50 MG TABLET (FP) PO SCH ×3 (06:07→23:07)
[2018-05-15] MEDS: MAGNESIUM OXIDE 400 MG TABLET (FP) PO SCH ×3 (06:07→23:07)
[2018-05-15] MEDS: INSULIN (LEVEMIR) 100 UNITS/ML UNITS SQ SCH ×2 (06:10→23:01)
[2018-05-15] MEDS: INSULIN (NOVOLOG) ASPART 100 UNITS/ML 10ML VIAL SQ SCH ×3 (06:10→17:13)
[2018-05-15] MEDS: SEVELAMER CARBONATE 800 MG TAB (FP) PO SCH ×3 (08:22→17:10)
--- NOTE | 2018-05-15 09:57 | PN ---
Progress Note, Physician Chief Complaint: awake alert NAD less pain RUE no bleed afebrile meds consults tests reviewed and d/w pt - Current Medication List Current Medications: Active Medications Allopurinol (Zyloprim -) 100 mg PO DAILY [facility] Last Admin: 05/14/18 15:59 Dose: 100 mg Aspirin (Asa -) 81 mg PO DAILY [facility] Last Admin: 05/14/18 15:59 Dose: 81 mg Atorvastatin Calcium (Lipitor -) 80 mg PO [facility] Last Admin: 05/14/18 21:02 Dose: 80 mg Brimonidine Tartrate (Alphagan 0.15% -) 1 drop OS TID [facility] Last Admin: 05/15/18 06:06 Dose: 1 drop Chlorhexidine Gluconate (Hibiclens For Decolonization -) 1 applic TP [facility] Cinacalcet (Sensipar -) 30 mg PO DAILY [facility] Last Admin: 05/14/18 10:00 Dose: 30 mg Ferrous Sulfate (Feosol -) 325 mg PO DAILY [facility] Last Admin: 05/14/18 15:59 Dose: 325 mg Furosemide (Lasix -) 80 mg PO DAILY [facility] Last Admin: 05/14/18 15:59 Dose: Not Given Hydralazine HCl (Apresoline -) 50 mg PO TID [facility] Last Admin: 05/15/18 06:07 Dose: 50 mg Indomethacin (Indocin -) 50 mg PO BID [facility] Last Admin: 05/14/18 21:02 Dose: 50 mg Insulin Aspart (Novolog Vial) 8 units SQ TIDAC [facility] Last Admin: 05/15/18 06:10 Dose: 8 units Insulin Aspart (Novolog Vial Sliding Scale -) 1 vial SQ [facility]; Protocol Last Admin: 05/14/18 21:04 Dose: 6 units Insulin Detemir (Levemir Vial) 10 units SQ DAILY@0700 [facility] Last Admin: 05/15/18 06:10 Dose: 10 units Insulin Detemir (Levemir Vial) 8 units SQ [facility] Last Admin: 05/14/18 21:03 Dose: 8 units Latanoprost (Xalatan 0.005% Eye Drops -) 1 drop OS [facility] Last Admin: 05/14/18 21:01 Dose: 1 drop Lisinopril (Prinivil) 5 mg PO DAILY [facility] Last Admin: 05/14/18 15:59 Dose: Not Given Loratadine (Claritin -) 10 mg PO DAILY [facility] Last Admin: 05/14/18 15:59 Dose: 10 mg Magnesium Oxide (Mag-Ox -) 400 mg PO TID [facility] Last Admin: 05/15/18 06:07 Dose: 400 mg Mupirocin (Bactroban Ointment (For Decolonization) -) 1 applic NS BID [facility] Stop: 05/18/18 21:59 Non-Formulary Medication (Brinzolamide [Azopt]) 1 drop OS TID [facility] Oxycodone HCl (Roxicodone -) 10 mg PO Q4H PRN PRN Reason: PAIN LEVEL 6-10 Last Admin: 05/14/18 08:56 Dose: 10 mg Pantoprazole Sodium (Protonix -) 20 mg PO DAILY [facility] Last Admin: 05/14/18 15:59 Dose: 20 mg Sevelamer Carbonate (Renvela -) 2,400 mg PO CM [facility] Last Admin: 05/15/18 08:22 Dose: 2,400 mg - Objective Vital Signs: Vital Signs Temperature 98.1 F 05/15/18 09:00 Pulse Rate 102 H 05/15/18 09:00 Respiratory Rate 18 05/15/18 09:00 Blood Pressure 150/71 05/15/18 09:00 O2 Sat by Pulse Oximetry (%) 95 05/15/18 09:00 Constitutional: Yes: No Distress, Calm Eyes: Yes: Conjunctiva Clear HENT: Yes: Atraumatic Neck: Yes: Supple Cardiovascular: Yes: Regular Rate and Rhythm Respiratory: Yes: CTA Bilaterally Gastrointestinal: Yes: Soft. No: Tenderness Genitourinary: No: Hematuria Musculoskeletal: No: Joint Stiffness, Joint Swelling Extremities: Yes: Amputation (L foot amputation), Other (RUE s/p AVF surgery dressing on no bleed) Edema: No Integumentary: No: Rash Wound/Incision: Yes: Dressing Dry and Intact Neurological: Yes: Alert ...Motor Strength: WNL Psychiatric: Yes: Alert. No: Agitated, Suicidal Ideation Labs: CBC, BMP 05/14/18 10:00 05/14/18 14:30 INR, PTT INR 1.06 (0.83-1.09) 05/13/18 07:42 - ....Imaging Other: Report Reviewed Assessment/Plan 52yo man with a PMH of CAD s/p IA s/p CABG, CHF w/ retained EF, HTN, HLD, asthma, GERD, ESRD on HD (last dialysis yesterday) s/pwith bleeding RUE av shunt - s/p surgical intervention; MRSA on the wound. IV vanco per ID; check blood cx dialysis per renal continue meds; BGM control; falls decubs DVT pfx d/w pt and staff; do not get OOB alone, call for help if needs OOB d/w pt
[2018-05-15] MEDS: LORATADINE 10 MG TABLET PO SCH (10:08)
[2018-05-15] MEDS: PANTOPRAZOLE 20 MG TABLET (FP) PO SCH (10:08)
[2018-05-15] MEDS: FERROUS SO4 325 MG TABLET (FP) PO SCH (10:08)
[2018-05-15] MEDS: INDOMETHACIN 50 MG CAPSULE PO SCH ×2 (10:08→23:07)
[2018-05-15] MEDS: ALLOPURINOL 100 MG TABLET (FP) PO SCH (10:09)
[2018-05-15] MEDS: ASPIRIN 81 MG CHEWABLE TABLETS PO SCH (10:09)
[2018-05-15] MEDS: CINACALCET HCL 30 MG TAB (FP) PO SCH (10:23)
--- NOTE | 2018-05-15 11:58 | PN ---
Progress Note (short form) - Note Progress Note: No complaints. Wound with serosanguinous drainage. Hand warm. Stable. Daily wound care. Vancomycin at dialysis. Problem List - Problems (1) Hemorrhage of surgically-created arteriovenous fistula Code(s): T82.838A - HEMORRHAGE DUE TO VASCULAR PROSTH DEV/GRFT, INIT Qualifiers: Encounter type: initial encounter Qualified Code(s): T82.838A - Hemorrhage due to vascular prosthetic devices, implants and grafts, initial encounter
[2018-05-15] MEDS: FUROSEMIDE 40 MG TABLET (FP) PO SCH (12:19)
[2018-05-15] MEDS: LISINOPRIL 5 MG TABLET (FP) PO SCH (12:19)
[2018-05-15] MEDS ORDERED: VANCOMYCIN 1 GRAM (PRE-DOCKED) 1,000 MG/250 ML BAG IVPB ONE (16:16)
--- NOTE | 2018-05-15 16:28 | PN ---
Progress Note (short form) - Note Progress Note: ID CONSULT DICTATED R/O GRAFT INFECTION + WOUND C/S MRSA ESRD REDOSE VANCOMYCIN OBTAIN BC
[2018-05-15 20:26] LABS: HEMATOCRIT 27.5 % (35.4-49); HEMOGLOBIN 9.3 GM/dL (11.7-16.9); MCH 31.4 pg (25.7-33.7); MCHC 33.9 g/dl (32.0-35.9); MEAN CELL VOLUME 92.5 fl (80-96); MEAN PLT VOLUME 8.1 fl (7.5-11.1); PLATELET COUNT 231 K/MM3 (134-434); RBC 2.97 M/mm3 (4.00-5.60); RDW 16.8 % (11.9-15.9); WHITE BLOOD COUNT 5.5 K/mm3 (4.0-10.0)
[2018-05-15 20:42] LABS: ANION GAP 12 MMOL/L (8-16); CALCIUM 8.1 mg/dL (8.5-10.1); CHLORIDE 98 mmol/L (98-107); CO2 26 mmol/L (21-32); CREATININE 7.3 mg/dL (0.55-1.3); POTASSIUM 5.2 mmol/L (3.5-5.1); SODIUM 135 mmol/L (136-145)
[2018-05-15 20:43] LABS: BLOOD UREA NITROGEN 57 mg/dL (7-18)
[2018-05-15 21:04] LABS: ERYTHROCYTE SEDIMENTATION RATE 81 mm/hr (0-20)
[2018-05-15 21:17] LABS: GLUCOSE,RANDOM 325 mg/dL (74-106)
[2018-05-15] MEDS ORDERED: SENNOSIDES 8.6MG TABLET (FP) PO PRN (22:00)
[2018-05-15] MEDS: LATANOPROST 0.005% OPHTH SOLN 2.5ML BOTTLE OS SCH (23:00)
[2018-05-15] MEDS: INSULIN SLIDING SCALE (NOVOLOG) 1 VIAL SQ SCH (23:02)
[2018-05-15] MEDS ORDERED: PT OWN MED DRAWER 7, Y5N ONE (23:06)
[2018-05-15] MEDS: ATORVASTATIN CA 80 MG TABLET (FP) PO SCH (23:07)
--- NOTE | 2018-05-16 06:10 | PN ---
Progress Note, Physician Chief Complaint: in bed awake alert NAD afebrile no pain received 1 dose iv vanco per ID yesterday - Current Medication List Current Medications: Active Medications Allopurinol (Zyloprim -) 100 mg PO DAILY [facility] Last Admin: 05/15/18 10:09 Dose: 100 mg Aspirin (Asa -) 81 mg PO DAILY [facility] Last Admin: 05/15/18 10:09 Dose: 81 mg Atorvastatin Calcium (Lipitor -) 80 mg PO [facility] Last Admin: 05/15/18 23:07 Dose: 80 mg Brimonidine Tartrate (Alphagan 0.15% -) 1 drop OS TID [facility] Last Admin: 05/15/18 22:59 Dose: 1 drop Cinacalcet (Sensipar -) 30 mg PO DAILY [facility] Last Admin: 05/15/18 10:23 Dose: 30 mg Ferrous Sulfate (Feosol -) 325 mg PO DAILY [facility] Last Admin: 05/15/18 10:08 Dose: 325 mg Furosemide (Lasix -) 80 mg PO DAILY [facility] Last Admin: 05/15/18 12:19 Dose: 80 mg Hydralazine HCl (Apresoline -) 50 mg PO TID [facility] Last Admin: 05/15/18 23:07 Dose: 50 mg Indomethacin (Indocin -) 50 mg PO BID [facility] Last Admin: 05/15/18 23:07 Dose: 50 mg Insulin Aspart (Novolog Vial) 8 units SQ TIDAC [facility] Last Admin: 05/15/18 17:13 Dose: 8 units Insulin Aspart (Novolog Vial Sliding Scale -) 1 vial SQ [facility]; Protocol Last Admin: 05/15/18 23:02 Dose: 6 units Insulin Aspart (Novolog Vial) 0 units SQ [facility]; Protocol Insulin Detemir (Levemir Vial) 10 units SQ DAILY@0700 [facility] Last Admin: 05/15/18 06:10 Dose: 10 units Insulin Detemir (Levemir Vial) 8 units SQ [facility] Last Admin: 05/15/18 23:01 Dose: 8 units Latanoprost (Xalatan 0.005% Eye Drops -) 1 drop OS [facility] Last Admin: 05/15/18 23:00 Dose: 1 drop Lisinopril (Prinivil) 5 mg PO DAILY [facility] Last Admin: 05/15/18 12:19 Dose: 5 mg Loratadine (Claritin -) 10 mg PO DAILY [facility] Last Admin: 05/15/18 10:08 Dose: 10 mg Magnesium Oxide (Mag-Ox -) 400 mg PO TID [facility] Last Admin: 05/15/18 23:07 Dose: 400 mg Non-Formulary Medication (Brinzolamide [Azopt]) 1 drop OS TID [facility] Oxycodone HCl (Roxicodone -) 10 mg PO Q4H PRN PRN Reason: PAIN LEVEL 6-10 Last Admin: 05/14/18 08:56 Dose: 10 mg Pantoprazole Sodium (Protonix -) 20 mg PO DAILY [facility] Last Admin: 05/15/18 10:08 Dose: 20 mg Senna (Senna -) 2 tab PO HS PRN PRN Reason: CONSTIPATION Sevelamer Carbonate (Renvela -) 2,400 mg PO CM [facility] Last Admin: 05/15/18 17:10 Dose: 2,400 mg - Objective Vital Signs: Vital Signs Temperature 98.0 F 05/16/18 01:57 Pulse Rate 91 H 05/16/18 01:57 Respiratory Rate 18 05/16/18 01:57 Blood Pressure 175/97 H 05/16/18 01:57 O2 Sat by Pulse Oximetry (%) 95 05/15/18 21:00 Constitutional: Yes: No Distress, Calm Eyes: Yes: Conjunctiva Clear HENT: Yes: Atraumatic Neck: Yes: Supple Cardiovascular: Yes: Regular Rate and Rhythm Respiratory: Yes: CTA Bilaterally Gastrointestinal: Yes: Soft. No: Tenderness Genitourinary: No: Hematuria Musculoskeletal: Yes: Other (L foot amputation). No: Joint Stiffness, Joint Swelling Extremities: No: Cold, Cool, Cyanosis Edema: No Integumentary: No: Rash, Venous Stasis Changes Wound/Incision: Yes: Dressing Dry and Intact (RUE) Neurological: Yes: WNL, Alert, Oriented ...Motor Strength: WNL Psychiatric: Yes: WNL, Alert, Oriented. No: Agitated Labs: CBC, BMP 05/15/18 20:08 05/15/18 20:08 INR, PTT INR 1.06 (0.83-1.09) 05/13/18 07:42 Assessment/Plan 52yo man with a PMH of CAD s/p MA s/p CABG, CHF w/ retained EF, HTN, HLD, asthma, GERD, ESRD on HD with bleeding RUE av shunt - s/p surgical intervention ; MRSA on the wound. IV vanco x 1 05/15 per ID; check blood cx dialysis per renal in am continue meds; BGM control; falls decubs DVT pfx d/w pt and staff; do not get OOB alone, call for help if needs OOB d/w pt plan DC when OK with ID and vascular sx; further ATB per ID - to be coordinated with renal / HD
[2018-05-16] MEDS: INSULIN (LEVEMIR) 100 UNITS/ML UNITS SQ SCH ×2 (06:27→21:47)
[2018-05-16] MEDS: INSULIN (NOVOLOG) ASPART 100 UNITS/ML 10ML VIAL SQ SCH ×3 (06:27→17:01)
[2018-05-16] MEDS: BRIMONIDINE TARTRATE 0.15% OPHTHALMIC 5 ML BOTTLE OS SCH ×3 (06:32→21:46)
[2018-05-16] MEDS: MAGNESIUM OXIDE 400 MG TABLET (FP) PO SCH ×3 (06:32→21:46)
[2018-05-16] MEDS: hydrALAZINE HCL 50 MG TABLET (FP) PO SCH ×3 (06:32→21:46)
[2018-05-16] MEDS: SEVELAMER CARBONATE 800 MG TAB (FP) PO SCH ×3 (08:29→17:02)
[2018-05-16] MEDS: INSULIN SLIDING SCALE (NOVOLOG) 1 VIAL SQ SCH ×5 (08:30→21:49)
[2018-05-16] MEDS: FUROSEMIDE 40 MG TABLET (FP) PO SCH (10:34)
[2018-05-16] MEDS: LISINOPRIL 5 MG TABLET (FP) PO SCH (10:34)
[2018-05-16] MEDS: ASPIRIN 81 MG CHEWABLE TABLETS PO SCH (10:34)
[2018-05-16] MEDS: LORATADINE 10 MG TABLET PO SCH (10:34)
[2018-05-16] MEDS: INDOMETHACIN 50 MG CAPSULE PO SCH ×2 (10:34→21:47)
[2018-05-16] MEDS: CINACALCET HCL 30 MG TAB (FP) PO SCH (10:34)
[2018-05-16] MEDS: PANTOPRAZOLE 20 MG TABLET (FP) PO SCH (10:34)
[2018-05-16] MEDS: ALLOPURINOL 100 MG TABLET (FP) PO SCH (10:34)
[2018-05-16] MEDS: FERROUS SO4 325 MG TABLET (FP) PO SCH (10:34)
--- NOTE | 2018-05-16 11:51 | PN ---
Progress Note (short form) - Note Progress Note: Renal follow up for ESRD on HD Pt seen and examined at the bedside has no acute complaints no fever, chills, sob, cp, abd pain, N/V/D last dialysis was Thursday Vital Signs Temperature 98.0 F 05/16/18 08:33 Pulse Rate 91 H 05/16/18 08:33 Respiratory Rate 18 05/16/18 08:35 Blood Pressure 148/77 05/16/18 08:33 O2 Sat by Pulse Oximetry (%) 95 05/16/18 08:35 Intake & Output 05/13/18 05/14/18 05/15/18 05/16/18 23:59 23:59 23:59 23:59 Intake Total 1960 1340 1370 260 Output Total 500 Balance 1460 1340 1370 260 Weight 105.506 kg 105.506 kg 105.143 kg 105.868 kg NAD RRR, No M/R CTA, no rales or wheeze soft NT/ND trace LE edema right IJ permaath in place right ARM AVF with dressing over it CBC, BMP 05/15/18 20:08 05/15/18 20:08 Current Medications Allopurinol (Zyloprim -) 100 mg PO DAILY [facility] Last Admin: 05/16/18 10:34 Dose: 100 mg Aspirin (Asa -) 81 mg PO DAILY [facility] Last Admin: 05/16/18 10:34 Dose: 81 mg Atorvastatin Calcium (Lipitor -) 80 mg PO HS [facility] Last Admin: 05/15/18 23:07 Dose: 80 mg Brimonidine Tartrate (Alphagan 0.15% -) 1 drop OS TID [facility] Last Admin: 05/16/18 06:32 Dose: 1 drop Cinacalcet (Sensipar -) 30 mg PO DAILY [facility] Last Admin: 05/16/18 10:34 Dose: 30 mg Ferrous Sulfate (Feosol -) 325 mg PO DAILY [facility] Last Admin: 05/16/18 10:34 Dose: 325 mg Furosemide (Lasix -) 80 mg PO DAILY [facility] Last Admin: 05/16/18 10:34 Dose: 80 mg Hydralazine HCl (Apresoline -) 50 mg PO TID [facility] Last Admin: 05/16/18 06:32 Dose: 50 mg Indomethacin (Indocin -) 50 mg PO BID [facility] Last Admin: 05/16/18 10:34 Dose: 50 mg Insulin Aspart (Novolog Vial) 8 units SQ TIDAC [facility] Last Admin: 05/16/18 06:27 Dose: 8 units Insulin Aspart (Novolog Vial Sliding Scale -) 1 vial SQ HS [facility]; Protocol Last Admin: 05/15/18 23:02 Dose: 6 units Insulin Aspart (Novolog Vial Sliding Scale -) 1 vial SQ [facility]; Protocol Last Admin: 05/16/18 08:30 Dose: Not Given Insulin Detemir (Levemir Vial) 10 units SQ DAILY@0700 [facility] Last Admin: 05/16/18 06:27 Dose: 10 units Insulin Detemir (Levemir Vial) 8 units SQ HS [facility] Last Admin: 05/15/18 23:01 Dose: 8 units Latanoprost (Xalatan 0.005% Eye Drops -) 1 drop OS HS [facility] Last Admin: 05/15/18 23:00 Dose: 1 drop Lisinopril (Prinivil) 5 mg PO DAILY [facility] Last Admin: 05/16/18 10:34 Dose: 5 mg Loratadine (Claritin -) 10 mg PO DAILY [facility] Last Admin: 05/16/18 10:34 Dose: 10 mg Magnesium Oxide (Mag-Ox -) 400 mg PO TID [facility] Last Admin: 05/16/18 06:32 Dose: 400 mg Non-Formulary Medication (Brinzolamide [Azopt]) 1 drop OS TID [facility] Oxycodone HCl (Roxicodone -) 10 mg PO Q4H PRN PRN Reason: PAIN LEVEL 6-10 Last Admin: 05/14/18 08:56 Dose: 10 mg Pantoprazole Sodium (Protonix -) 20 mg PO DAILY [facility] Last Admin: 05/16/18 10:34 Dose: 20 mg Senna (Senna -) 2 tab PO HS PRN PRN Reason: CONSTIPATION Sevelamer Carbonate (Renvela -) 2,400 mg PO CM [facility] Last Admin: 05/16/18 08:29 Dose: 2,400 mg 52 year old gentleman with hx of ESRDon HD (TTS), DM, Hypertension, CAD s/p CABG, presented from home with bleeding from AVF site. #ESRD on HD #Bleeding from AVF site #Arm Numbness #Hypertension #Chronic Anemia #DM #CAD no acute need for EXTRUSION DIE CORRECTOR today, next dialysis planned for tomorrow morning and then will transition to TTS schedule will dose Vanco post HD tomorrow f/u blood cultures ID following Antwan Hurley DO
[2018-05-16] MEDS: LATANOPROST 0.005% OPHTH SOLN 2.5ML BOTTLE OS SCH (21:46)
[2018-05-16] MEDS: ATORVASTATIN CA 80 MG TABLET (FP) PO SCH (21:46)
[2018-05-17] MEDS: hydrALAZINE HCL 50 MG TABLET (FP) PO SCH ×2 (06:22→15:29)
[2018-05-17] MEDS: MAGNESIUM OXIDE 400 MG TABLET (FP) PO SCH ×2 (06:22→14:40)
[2018-05-17] MEDS: BRIMONIDINE TARTRATE 0.15% OPHTHALMIC 5 ML BOTTLE OS SCH ×2 (06:22→14:40)
[2018-05-17] MEDS: INSULIN (NOVOLOG) ASPART 100 UNITS/ML 10ML VIAL SQ SCH ×2 (06:50→14:39)
[2018-05-17] MEDS: INSULIN (LEVEMIR) 100 UNITS/ML UNITS SQ SCH (06:50)
[2018-05-17] MEDS: INSULIN SLIDING SCALE (NOVOLOG) 1 VIAL SQ SCH ×2 (06:51→14:39)
[2018-05-17] MEDS ORDERED: ONDANSETRON 4 MG/2 ML VIAL ONE (07:47)
[2018-05-17 09:23] LABS: HEMATOCRIT 26.5 % (35.4-49); HEMOGLOBIN 8.9 GM/dL (11.7-16.9); MCH 31.1 pg (25.7-33.7); MCHC 33.6 g/dl (32.0-35.9); MEAN CELL VOLUME 92.7 fl (80-96); MEAN PLT VOLUME 8.2 fl (7.5-11.1); PLATELET COUNT 225 K/MM3 (134-434); RBC 2.86 M/mm3 (4.00-5.60); RDW 16.2 % (11.9-15.9); WHITE BLOOD COUNT 6.8 K/mm3 (4.0-10.0)
--- NOTE | 2018-05-17 09:28 | PN ---
Progress Note (short form) - Note Progress Note: 52yo M s/p RUE AV fistula ligation/ washout, seen and examined at bedside. Pt denies any pain in his Rt arm, state was dialyzed on Thursday without issue. Pt denies fever, chills, n/v. Last Vital Signs Temp Pulse Resp BP Pulse Ox 97.8 F 86 18 150/88 98 05/17/18 07:10 05/17/18 07:10 05/17/18 07:10 05/17/18 07:10 05/16/18 21:00 PE: Gen: A&O X3 Resp: breathing comfortably RUE: no erythema, serous discharge, wound clean, mild swelling, hand warm and pink. Problem List - Problems (1) Hemorrhage of surgically-created arteriovenous fistula Assessment/Plan: Plan -continue wound care, consider VNS -abx as per ID -cleared for discharge from vascular standpoint, pt should follow up with Dr. Bhatti in 1 week for as outpatient Code(s): T82.838A - HEMORRHAGE DUE TO VASCULAR PROSTH DEV/GRFT, INIT Qualifiers: Encounter type: initial encounter Qualified Code(s): T82.838A - Hemorrhage due to vascular prosthetic devices, implants and grafts, initial encounter
[2018-05-17 09:59] LABS: ANION GAP 9 MMOL/L (8-16); BLOOD UREA NITROGEN 82 mg/dL (7-18); CALCIUM 7.8 mg/dL (8.5-10.1); CHLORIDE 98 mmol/L (98-107); CO2 26 mmol/L (21-32); GLUCOSE,RANDOM 222 mg/dL (74-106); PHOSPHOROUS 4.6 mg/dL (2.5-4.9); SODIUM 133 mmol/L (136-145)
[2018-05-17 10:01] LABS: CREATININE 9.1 mg/dL (0.55-1.3)
[2018-05-17 10:02] LABS: POTASSIUM 6.3 mmol/L (3.5-5.1)
[2018-05-17] MEDS: FUROSEMIDE 40 MG TABLET (FP) PO SCH (10:20)
[2018-05-17] MEDS: LISINOPRIL 5 MG TABLET (FP) PO SCH (10:21)
[2018-05-17] MEDS ORDERED: ONDANSETRON 4 MG/2 ML VIAL IVPUSH ONE (11:00)
--- NOTE | 2018-05-17 11:05 | PN ---
Progress Note (short form) - Note Progress Note: Renal follow up for ESRD on HD Pt seen and examined during dialysis BP stable, goal UF 2.5-3L as tolerated access with good flow pt without any acute complaints no sob, cp, fever, chills, N/V/D Vital Signs Temperature 97.8 F 05/17/18 07:10 Pulse Rate 86 05/17/18 07:10 Respiratory Rate 18 05/17/18 09:00 Blood Pressure 150/88 05/17/18 07:10 O2 Sat by Pulse Oximetry (%) 98 05/17/18 09:00 Intake & Output 05/14/18 05/15/18 05/16/18 05/17/18 23:59 23:59 23:59 23:59 Intake Total 1340 1370 1670 120 Balance 1340 1370 1670 120 Weight 105.506 kg 105.143 kg 105.868 kg 105.959 kg NAD RRR, No M/R CTA, no rales or wheeze soft NT/ND trace LE edema right IJ permaath in place right ARM AVF with dressing over it CBC, BMP 05/17/18 09:00 05/17/18 09:00 Current Medications Allopurinol (Zyloprim -) 100 mg PO DAILY [facility] Last Admin: 05/16/18 10:34 Dose: 100 mg Aspirin (Asa -) 81 mg PO DAILY [facility] Last Admin: 05/16/18 10:34 Dose: 81 mg Atorvastatin Calcium (Lipitor -) 80 mg PO HS [facility] Last Admin: 05/16/18 21:46 Dose: 80 mg Brimonidine Tartrate (Alphagan 0.15% -) 1 drop OS TID [facility] Last Admin: 05/17/18 06:22 Dose: 1 drop Cinacalcet (Sensipar -) 30 mg PO DAILY [facility] Last Admin: 05/16/18 10:34 Dose: 30 mg Epoetin Lauri (Epogen -) 20,000 unit IVPUSH ONCE ONE Stop: 05/17/18 06:22 Ferrous Sulfate (Feosol -) 325 mg PO DAILY [facility] Last Admin: 05/16/18 10:34 Dose: 325 mg Furosemide (Lasix -) 80 mg PO DAILY [facility] Last Admin: 05/16/18 10:34 Dose: 80 mg Hydralazine HCl (Apresoline -) 50 mg PO TID [facility] Last Admin: 05/17/18 06:22 Dose: 50 mg Sodium Chloride (Normal Saline -) 250 mls @ 3,000 mls/hr IV PRN PRN PRN Reason: Hypotension during Dialysis Stop: 05/18/18 06:21 Indomethacin (Indocin -) 50 mg PO BID [facility] Last Admin: 05/16/18 21:47 Dose: 50 mg Insulin Aspart (Novolog Vial) 8 units SQ TIDAC [facility] Last Admin: 05/17/18 06:50 Dose: 8 units Insulin Aspart (Novolog Vial Sliding Scale -) 1 vial SQ [facility]; Protocol Last Admin: 05/16/18 21:48 Dose: Not Given Insulin Aspart (Novolog Vial Sliding Scale -) 1 vial SQ ACHS [facility]; Protocol Last Admin: 05/17/18 06:51 Dose: 4 units Insulin Detemir (Levemir Vial) 10 units SQ DAILY@0700 [facility] Last Admin: 05/17/18 06:50 Dose: 10 units Insulin Detemir (Levemir Vial) 8 units SQ [facility] Last Admin: 05/16/18 21:47 Dose: Not Given Latanoprost (Xalatan 0.005% Eye Drops -) 1 drop OS [facility] Last Admin: 05/16/18 21:46 Dose: 1 drop Lisinopril (Prinivil) 5 mg PO DAILY [facility] Last Admin: 05/16/18 10:34 Dose: 5 mg Loratadine (Claritin -) 10 mg PO DAILY [facility] Last Admin: 05/16/18 10:34 Dose: 10 mg Magnesium Oxide (Mag-Ox -) 400 mg PO TID [facility] Last Admin: 05/17/18 06:22 Dose: 400 mg Non-Formulary Medication (Brinzolamide [Azopt]) 1 drop OS TID [facility] Pantoprazole Sodium (Protonix -) 20 mg PO DAILY [facility] Last Admin: 05/16/18 10:34 Dose: 20 mg Senna (Senna -) 2 tab PO HS PRN PRN Reason: CONSTIPATION Sevelamer Carbonate (Renvela -) 2,400 mg PO CM [facility] Last Admin: 05/16/18 17:02 Dose: 2,400 mg 52 year old gentleman with hx of ESRDon HD (TTS), DM, Hypertension, CAD s/p CABG, presented from home with bleeding from AVF site. #ESRD on HD #Bleeding from AVF site #Arm Numbness #Hypertension #Chronic Anemia #DM #CAD #MRSA wound infection tolerating dialysis well today, UF as tolerated will plan for abridged dialysis tomorrow to resume TTS schedule no further bleeding form AVF site will continue DAVON with HD Vanco with HD f/u blood culturs Antwan Hurley DO
[2018-05-17] MEDS ORDERED: SODIUM CHLORIDE 250 ML IV PRN (11:14)
[2018-05-17] MEDS ORDERED: VANCOMYCIN 1 GM in D5W (PRE-DOCKED) 1,000 MG/250 ML IVPB ONE (12:00)
[2018-05-17] MEDS ORDERED: EPOETIN ALFA 20,000 UNIT/1 ML VIAL IVPUSH ONE (12:00)
--- NOTE | 2018-05-17 12:23 | DS ---
Physical Examination Vital Signs: Vital Signs Temperature 97.8 F 05/17/18 07:10 Pulse Rate 86 05/17/18 07:10 Respiratory Rate 18 05/17/18 09:00 Blood Pressure 150/88 05/17/18 07:10 O2 Sat by Pulse Oximetry (%) 98 05/17/18 09:00 Findings/Remarks: Pt w/o fever, chills, weakness, SOB, CP, palpitations, abd pain. Constitutional: Yes: No Distress, Calm Cardiovascular: Yes: Regular Rate and Rhythm, S1, S2 Respiratory: Yes: Regular, Rales (crackles at bases). No: Rhonchi Gastrointestinal: Yes: Normal Bowel Sounds, Soft, Abdomen, Obese. No: Tenderness Edema: LLE: Trace, RLE: Trace Neurological: Yes: Alert, Oriented Labs: CBC, BMP 05/17/18 09:00 05/17/18 09:00 Discharge Summary Reason For Visit: HEMORRHAGE OF SURGICALLY CREATED ARTERIOVENOUS Current Active Problems Bleeding from wound (Acute) Hemorrhage of surgically-created arteriovenous fistula (Acute) Procedures: Principal: CXR Hospital Course: Pt with significant Hx/o ESRD on HD, s/p right forearm AVF Sx, came to ER with right forearm bleed. Pt went to OR had bleeding was controlled. Pt wound CX came back + for MRSA; pt was started on Vanco during HD. Pt w/o right arm bleeding since admission, cleared for DC by Vascular Sx. To DC pt home today with f/u next week with Dr. Bhatti and Dr. Guzman. Pt to continue Vanco at HD. Condition: Improved - Instructions Diet, Activity, Other Instructions: Resume diet. POST-OPERATIVE INSTRUCTIONS - FISTULA WOUND: Keep your dressing clean and dry and in place for 72 hours. You may shower in 48 hours with a waterproof bag or Saran wrap over the original dressing. In 72 hours when you remove the dressing, you may wet the incision in the shower ONLY. Allow soap and water to run over the incision, do not scrub the incision, pat dry well after showering. Check the incision daily after removal of the dressing for redness or drainage. If you note an redness or drainage, contact your surgeon immediately. Do not swim or soak in water (bath/hot tub. etc.) until cleared by your surgeon as this can lead to infection. Do not put creams or ointments on the wound until cleared by your surgeon. DIET: You may resume your regular diet unless otherwise instructed by your physician. Increase your fiber intake if taking narcotic pain medications as constipation is a common side effect. PAIN RELIEF: Take pain medication as prescribed. Do not drive, drink alcohol or operate heavy machinery while taking narcotic pain medication. You may be prescribed pain medications which contain Acetaminophen (Tylenol), do not take additional Tylenol with this pain medication. You should not exceed more than 3g (3000mg) of Tylenol in 24 hours, as this can lead to liver damage or failure. ACTIVITY: No heavy lifting with your operative arm until cleared by your surgeon. Do not wear any occlusive jewelry on your operative arm as this can affect the functioning of your fistula. FOLLOW UP: Please call the office to schedule your follow-up appointment in 2 weeks. Call your doctor's office or go to the ER immediately if you develop: * Trouble breathing, chest tightness or shortness of breath * Oral temperature greater than 100.5 F * Excessive redness, swelling, or drainage at the incision site * Foul odor from the incision * New, increasing pain/numbness/weakness or coolness in your arm Disposition: HOME - Home Medications Comprehensive Discharge Medication List: Ambulatory Orders Continue Vanco at HD (per Dr Guzman) See Discharge Home Instructions
[2018-05-17] MEDS: SEVELAMER CARBONATE 800 MG TAB (FP) PO SCH (14:36)
[2018-05-17] MEDS: LORATADINE 10 MG TABLET PO SCH (14:37)
[2018-05-17] MEDS: FERROUS SO4 325 MG TABLET (FP) PO SCH (14:38)
[2018-05-17] MEDS: ASPIRIN 81 MG CHEWABLE TABLETS PO SCH (14:38)
[2018-05-17] MEDS: CINACALCET HCL 30 MG TAB (FP) PO SCH (14:38)
[2018-05-17] MEDS: PANTOPRAZOLE 20 MG TABLET (FP) PO SCH (14:39)
[2018-05-17] MEDS: ALLOPURINOL 100 MG TABLET (FP) PO SCH (14:39)
--- NOTE | 2018-05-17 15:26 | CONS ---
DATE OF CONSULTATION: DATE OF DICTATION: 05/17/2018 HISTORY: The patient is a 52-year-old male with a history of end-stage renal disease on hemodialysis evaluated for possible graft infection. The patient was admitted to the hospital on May 13, 2018 after developing bleeding from his right upper extremity AV fistula. The AV fistula was created in the right arm approximately 1 month prior to admission. His postoperative course was complicated by a wound infection. On the day of admission, he developed pulsatile bleeding from the wound. He presented to the emergency room where he required transfusion of packed red cells. The patient was taken to the operating room on May 13, 2018. Ligation of the AV fistula was performed as well as wound exploration. According to the operative note, there was bleeding from veins around the brachial artery and basilic vein fistula. The AV anastomosis was intact. There was no evidence of wound infection. He denies any associated fever or chills. PAST MEDICAL HISTORY: Positive for end-stage renal disease, coronary artery disease, myocardial infarction, congestive heart failure, hypertension, hyperlipidemia, gastroesophageal reflux. PAST SURGICAL HISTORY: Status post coronary artery bypass, right upper extremity AV fistula, right chest PermCath, left upper extremity AV graft, left transmetatarsal amputation. ALLERGIES: No known allergies. MEDICATIONS: At home include Zyloprim, aspirin, Lipitor, Feosol, Lasix, hydralazine, Prinivil, Levemir. SOCIAL HISTORY: He resides in the community. He is a nonsmoker, nondrinker. SYSTEMS REVIEW: Neurologic: No loss of consciousness, seizure activity, focal weakness. Cardiac: Negative chest pain or palpitations. Respiratory: Negative cough or sputum production. Gastrointestinal: Negative vomiting or diarrhea. Genitourinary: End-stage renal disease on hemodialysis. LABORATORY DATA: White count 5.4, hematocrit 23.7, platelet count 208, creatinine 3.1. Wound culture, positive MRSA. PHYSICAL EXAMINATION: General: The patient is awake and alert. Not acutely toxic appearing. Vital Signs: Temperature 98.1, blood pressure 150/71, pulse 107, regular, respirations 18 per minute. HEENT: Sclerae anicteric. Corneal opacity. Heart: Sounds S1, S2. No murmur. Lungs: Clear. Abdomen: Obese, soft, nontender. Extremities: Positive for edema. Healed left transmetatarsal amputation. There is a postoperative dressing in place right upper extremity. Skin: PermCath present in the right chest. IMPRESSION: 1. Rule out atrioventricular fistula infection. 2. Positive wound culture methicillin-resistant Staphylococcus aureus. 3. Rule out sepsis secondary to skin source. 4. End-stage renal disease. PLAN: Re-dose vancomycin. Await blood cultures. Local wound care. Thank you for the kind referral. GREY DIAZ M.D. [id number]
[2018-05-17 15:46] VITALS: TEMP 98.8
[2018-05-17 15:52] VITALS: BP 134/52; PULSE 94
--- NOTE | 2018-05-17 20:36 | OP ---
DATE OF OPERATION: 05/13/2018 SURGEON: Allen Field MD DURALUMIN METALWORKER: RUTHIE Fonseca PROCEDURE: Ligation of left arm arteriovenous fistula repair, brachial artery exploration of bleeding wound. PREOPERATIVE DIAGNOSIS: Bleeding wound, right arm. POSTOPERATIVE DIAGNOSIS: Bleeding wound, right arm, hemorrhage from arteriovenous fistula. ANESTHESIA: General. ANESTHESIOLOGIST: Pranay Quinn MD OPERATIVE FINDINGS: There was a hematoma present in the wound in the right antecubital fossa where postoperative bleeding had been seen. Exploration of the wound revealed bleeding coming from branches of the fistula vein. The arteriovenous anastomosis was intact. There were multiple adherent veins to the artery. OPERATIVE PROCEDURE: The patient was brought emergency to the operating room, and general anesthesia was induced. The right arm was prepped with Betadine solution. Incision was made on the medial aspect of the distal upper arm and carried into subcutaneous tissues using cautery for hemostasis. The brachial artery was identified, mobilized, and secured with a Vessel Loop. The antecubital incision was then extended distally and deepened through the subcutaneous tissues with cautery. The distal artery is identified and secured with a Vessel Loop. The hematoma was evacuated and cultured. Pressure was used to control bleeding and, when necessary, the proximal and distal arteries were occluded with Vessel Loops. The fistula vein was ligated and divided. It was dissected distally to the arteriovenous anastomosis, which appeared to be intact. The vein was then amputated distal to the suture line, and the vein was oversewn with a running suture of 6-0 Prolene. Additional bleeding veins were treated with suture ligatures and clips where they crossed the vessels. The wound was irrigated with bacitracin solution and checked for hemostasis. A [place] drain was then placed at the base of the wound and brought out through the inferior aspect. The wound was then closed with interrupted suture of 3-0 Vicryl in subcutaneous tissues and sutures of 3-0 nylon on the skin. Sterile dressing was applied with Kerlix and Jose Enrique bandage and the patient was taken to the recovery room in stable condition. ALLEN FIELD M.D. MELVIN/[id number]
== END 2018-05-17 19:07 | disposition home or self-care (01) | DRG 252 ==
LOC: JER 06:23 → JERBED 08:26 → J4W 18:14
PROVIDERS: ADMIT Specialist; ATTEND Specialist
PROC: 03C70ZZ Extirpation of Matter from Right Brachial Artery, Open Approach (ICD-10-PCS; 2018-05-13)
PROC: 05L90ZZ Occlusion of Right Brachial Vein, Open Approach (ICD-10-PCS; principal; 2018-05-13 08:30)
DX: T82.838A Hemorrhage due to vascular prosthetic devices, implants and grafts, initial encounter (principal); N18.6 End stage renal disease; I13.2 Hypertensive heart and chronic kidney disease with heart failure and with stage 5 chronic kidney disease, or end stage renal disease; T82.7XXA Infection and inflammatory reaction due to other cardiac and vascular devices, implants and grafts, initial encounter; Y83.8 Other surgical procedures as the cause of abnormal reaction of the patient, or of later complication, without mention of misadventure at the time of the procedure; I25.10 Atherosclerotic heart disease of native coronary artery without angina pectoris; I25.2 Old myocardial infarction; E78.5 Hyperlipidemia, unspecified; K21.9 Gastro-esophageal reflux disease without esophagitis; F41.9 Anxiety disorder, unspecified; M10.9 Gout, unspecified; H54.40 Blindness, one eye, unspecified eye; J45.909 Unspecified asthma, uncomplicated; D64.9 Anemia, unspecified; B95.62 Methicillin resistant Staphylococcus aureus infection as the cause of diseases classified elsewhere; E11.22 Type 2 diabetes mellitus with diabetic chronic kidney disease; Z99.2 Dependence on renal dialysis; E66.9 Obesity, unspecified; Z68.36 Body mass index [BMI] 36.0-36.9, adult; Z95.1 Presence of aortocoronary bypass graft; Z89.432 Acquired absence of left foot
CPT/HCPCS: 36415; 36430; 71045-TC-FY; 80048; 80053; 82565; 82962; 83735; 84100; 84520; 85025; 85027; 85610; 85651; 85730; 86850; 86900; 86901; 86922; 87040; 87070; 87186; 87205; 93005; 93010; 94760; 99283-25; G0480; J0131; J0885; J1644; P9038; P9058

== ENCOUNTER 2018-10-05 14:32 | Inpatient (IN) | payer OTHER ==
[2018-10-05 15:07] VITALS: BMI 37.5
--- NOTE | 2018-10-05 15:39 | PDOC ---
History of Present Illness <Keyana Thompson Erich - Last Filed: 10/05/18 17:41> - General History Source: Patient Exam Limitations: No Limitations - History of Present Illness Initial Comments: 10/05/18 15:11 53 yo male pmh CAD s/p AR s/p CABG, CHF w/ retained EF, HTN, HLD, asthma, GERD, ESRD on HD //Thu via left fistula, anemia, B12 deficiency, sickle cell ( disease?) presents to the ED for cough, CP. Pt states the symptoms started at 1 pm today. Pt had scheduled dialysis but due to non working elevator in building. Denies recent travel, calf tenderness, sick contacts, F/C/N/V, changes in bowel or bladder habits. Renal is Dr. Yina Palomo Cards Dr. Álvarez <Nicholas Vela - Last Filed: 10/05/18 19:57> - General Chief Complaint: Dialysis Shunt Problem Stated Complaint: MISSED DIALYSIS Time Seen by Provider: 10/05/18 15:09 Past History <Keyana Thompson - Last Filed: 10/05/18 17:41> - Past Medical History Anemia: Yes Asthma: No Cancer: No Cardiac Disorders: Yes ("silent AR" CABG x 2 vessels 05/24/2010) CVA: No COPD: No CHF: Yes DVT: No Dementia: No Diabetes: Yes Dialysis: Yes (,,) GI Disorders: Yes (GERD) Disorders: No HTN: Yes Hypercholesterolemia: Yes Liver Disease: No Seizures: No Thyroid Disease: No - Surgical History Abdominal Surgery: No Appendectomy: No Cardiac Surgery: Yes (CABG 05/2010, cardiac stent may 2013) Cholecystectomy: No Lung Surgery: No Orthopedic Surgery: Yes (transmet amp L foot) - Family Disease History Family Disease History: Diabetes: Mother, Heart Disease: Father - Immunization History Immunization Up to Date: Yes - Suicide/Smoking/Psychosocial Hx Smoking Status: No Smoking History: Never smoked Years of Tobacco Use: 0 Have you smoked in the past 12 months: No Number of Cigarettes Smoked Daily: 2 If you are a former smoker, when did you quit?: 1990 Cigars Per Day: 0 'Breaking Loose' booklet given: 06/04/12 Hx Alcohol Use: No Drug/Substance Use Hx: No Substance Use Type: None Hx Substance Use Treatment: No <Nicholas Vela - Last Filed: 10/05/18 19:57> - Past Medical History Allergies/Adverse Reactions: Allergies Allergy/AdvReac Type Severity Reaction Status Date / Time No Known Drug Allergies Allergy Verified 05/13/18 06:32 Home Medications: Ambulatory Orders Allopurinol [Zyloprim -] 100 mg PO DAILY 05/06/18 Aspirin [ASA -] 81 mg PO DAILY 05/06/18 Atorvastatin Calcium 80 mg PO HS 05/06/18 Bimatoprost [Lumigan] 1 drop OS HS 05/06/18 Brimonidine Tartrate [Alphagan 0.15% -] 1 drop OS TID 05/06/18 Brinzolamide [Azopt] 1 drop OS TID 05/06/18 Cinacalcet HCl [Sensipar -] 30 mg PO DAILY 05/06/18 Ferrous Sulfate [Feosol] 325 mg PO DAILY 05/06/18 Furosemide [Lasix -] 80 mg PO DAILY 05/06/18 Hydralazine HCl 50 mg PO TID 05/06/18 Indomethacin [Indocin -] 50 mg PO BID 05/06/18 Insulin (LOG) Aspart [NovoLOG -] 8 units SQ TID 05/06/18 Insulin Detemir [Levemir Flextouch] 8 unit SQ HS 05/06/18 Levocetirizine Dihydrochloride 10 mg PO DAILY 05/06/18 Lisinopril [Prinivil] 5 mg PO DAILY 05/06/18 Magnesium Oxide [Magox 400] 400 mg PO TID 05/06/18 Omeprazole 20 mg PO DAILY 05/06/18 Sevelamer Carbonate [Renvela -] 2,400 mg PO CM 05/06/18 Tramadol HCl/Acetaminophen [Tramadol-Acetaminophn 37.5-325] 1 each PO BID Insulin (Levemir) [Levemir Vial] 10 units SQ DAILY@0700 units 05/07/18 Sennosides [Senna -] 2 tab PO HS PRN 30 Days #60 tablet MDD 2 05/17/18 Review of Systems - Review of Systems Constitutional: Yes: See HPI HEENTM: Yes: See HPI Respiratory: Yes: See HPI Cardiac (ROS): Yes: See HPI ABD/GI: Yes: See HPI : Yes: See HPI Musculoskeletal: Yes: See HPI Integumentary: Yes: See HPI Neurological: Yes: See HPI <Nicholas Vela - Last Filed: 10/05/18 19:57> *Physical Exam - Vital Signs Last Vital Signs Temp Pulse Resp BP Pulse Ox 98.7 F 90 23 H 143/92 92 L 10/05/18 15:04 10/05/18 15:04 10/05/18 15:04 10/05/18 15:04 10/05/18 15:04 <Keyana Thompson - Last Filed: 10/05/18 17:41> - Vital Signs Last Vital Signs Temp Pulse Resp BP Pulse Ox 90 23 H 143/92 92 L 10/05/18 15:04 10/05/18 15:04 10/05/18 15:04 10/05/18 15:04 - Physical Exam General Appearance: Yes: Nourished, Appropriately Dressed. No: Apparent Distress HEENT: positive: EOMI Neck: positive: Supple. negative: Carotid bruit Respiratory/Chest: positive: Other (poor inspiratory effort). negative: Rales, Rhonchi, Stridor, Wheezing Cardiovascular: positive: Regular Rhythm, Regular Rate, S1, S2, Edema ( bilateral pitting). negative: JVD, Murmur Vascular Pulses: Dorsalis-Pedis (R): 4+, Doralis-Pedis (L): 4+ Gastrointestinal/Abdominal: positive: Flat, Soft. negative: Pulsatile Mass, Decreased BS, Protuberent, Distended, Guarding Musculoskeletal: negative: CVA Tenderness Extremity: positive: Normal Capillary Refill, Normal Inspection Integumentary: positive: Normal Color, Dry, Warm Neurologic: positive: Fully Oriented, Alert, Normal Mood/Affect, Normal Response <Nicholas Vela - Last Filed: 10/05/18 19:57> ED Treatment Course - LABORATORY CBC & Chemistry Diagram: 10/05/18 15:51 10/05/18 15:51 - ADDITIONAL ORDERS Additional order review: Laboratory Results 10/05/18 15:51 Sodium 135 L Potassium 6.1 H* Chloride 99 Carbon Dioxide 24 Anion Gap 12 BUN 89.4 H Creatinine 10.6 H* Est GFR (CKD-EPI)AfAm 5.71 Est GFR (CKD-EPI)NonAf 4.93 Random Glucose 142 H Calcium 8.8 Total Bilirubin 0.4 AST 9 L ALT 12 L Alkaline Phosphatase 724 H Creatine Kinase 174 Creatine Kinase Index 3.3 CK-MB (CK-2) 5.9 H Troponin I < 0.02 B-Natriuretic Peptide 75900.0 H Total Protein 7.7 Albumin 3.5 10/05/18 15:51 RBC 2.78 L MCV 92.8 MCHC 32.3 RDW 18.4 H MPV 8.1 Neutrophils % 80.3 Lymphocytes % 9.1 Monocytes % 5.5 Eosinophils % 4.2 Basophils % 0.9 - Medications Given in the ED: ED Medications Discontinued Medications Generic Name Dose Route Start Last Admin Trade Name Freq PRN Reason Stop Dose Admin Acetaminophen 650 mg 10/05/18 16:58 10/05/18 17:10 Tylenol - PO 10/05/18 16:59 Not Given ONCE ONE Albuterol/Ipratropium 1 amp 10/05/18 16:00 10/05/18 16:47 Duoneb - NEB 10/05/18 16:31 1 amp Q15M [facility]A Administration Furosemide 80 mg 10/05/18 16:58 10/05/18 17:10 Lasix - PO 10/05/18 16:59 80 mg ONCE ONE Administration Methylprednisolone Sodium Succinate 125 mg 10/05/18 15:47 10/05/18 16:20 Solu-Medrol - IVPB 10/05/18 15:48 125 mg ONCE ONE Administration <Keyana Thompson - Last Filed: 10/05/18 17:41> - LABORATORY CBC & Chemistry Diagram: 10/05/18 15:51 10/05/18 15:51 <Nicholas Vela - Last Filed: 10/05/18 19:57> Medical Decision Making - Medical Decision Making 10/05/18 16:22 53 yo male pmh CAD s/p AR s/p CABG, CHF w/ retained EF, HTN, HLD, asthma, GERD, ESRD on HD T//Thu via left fistula, anemia, B12 deficiency, sickle cell ( disease?) presents to the ED for cough, CP. Pt states the symptoms started at 1 pm today. Pt had scheduled dialysis but due to non working elevator in building. Denies recent travel, calf tenderness, sick contacts, F/C/N/V, changes in bowel or bladder habits. Renal is Dr. Yina Palomo Cards Dr. Álvarez Vitals show elevated RR and low 02 DDX INLT: PNA, asthma exacerbation, CHF, ACS, URI pt not moving air well, with hx of asthma will give duo nebs Labs show no elevated WBC 10/05/18 17:04 duo nebs have helped 10/05/18 18:44 K of 6.1, no EKG changes Case discussed with Dr. Yina Palomo, agrees pt require dialysis due to elevated potassium and fluid overload state. States dialysis nurse is ready for transfer and pt will receive 2 hours of dialysis today and full dialysis tomorrow Call placed to Dr. Dunbar for admission, PCP states he will be unable to take admission tonight and to let hospitalist team take care of the pt. Pt can receive dialysis at this time off the monitor Hospitalist Dr. Hector agrees to have pt admitted 10/05/18 19:56 JEFF Dunbar presents to the hospital to assess pt. If Tele bed is not ready at the end of dialysis pt can be transported back to the ED <Nicholas Vela - Last Filed: 10/05/18 19:57> *DC/Admit/Observation/Transfer - Discharge Dispostion Decision to Admit order: Yes <Keyana Thompson - Last Filed: 10/05/18 17:41> - Discharge Dispostion Decision to Admit order: Yes <Nicholas Vela - Last Filed: 10/05/18 19:57> Diagnosis at time of Disposition: ESRD (end stage renal disease) on dialysis, Hyperkalemia - Discharge Dispostion Condition at time of disposition: Stable
[2018-10-05] MEDS ORDERED: methylPREDNISolone NA SUCC 125 MG/2 ML VIAL IVPB ONE (15:47)
[2018-10-05] MEDS ORDERED: ALBUTEROL SO4 2.5/IPRATROPIUM 0.5 INH SOL 3 ML VIAL.NEB. NEB ONE ×2 (16:11→17:25)
[2018-10-05] MEDS ORDERED: methylPREDNISolone NA SUCC 125 MG/2 ML VIAL ONE (16:11)
[2018-10-05] MEDS: ALBUTEROL SO4 2.5/IPRATROPIUM 0.5 INH SOL 3 ML VIAL.NEB. NEB SCH ×2 (16:20→16:47)
[2018-10-05 16:26] LABS: BASO % 0.9 % (0-2.0); EOS % 4.2 % (0-4.5); HEMATOCRIT 25.8 % (35.4-49); HEMOGLOBIN 8.3 GM/dL (11.7-16.9); LYMPH % 9.1 % (8-40); MCHC 32.3 g/dl (32.0-35.9); MEAN CELL VOLUME 92.8 fl (80-96); MEAN PLT VOLUME 8.1 fl (7.5-11.1); MONO % 5.5 % (3.8-10.2); NEUT % 80.3 % (42.8-82.8); PLATELET COUNT 242 K/MM3 (134-434); RBC 2.78 M/mm3 (4.00-5.60); RDW 18.4 % (11.9-15.9); WHITE BLOOD COUNT 6.9 K/mm3 (4.0-10.0)
--- NOTE | 2018-10-05 16:30 | PDOC ---
Documentation entered by Daniel Pickett SCRIBE, acting as scribe for Keyana Thompson MD. Keyana Thompson MD: This documentation has been prepared by the Nieves shaffer Renju, SCRIBE, under my direction and personally reviewed by me in its entirety. I confirm that the documentation accurately reflects all work, treatment, procedures, and medical decision making performed by me. Attending Attestation - Resident Resident Name: Nicholas Vela - ED Attending Attestation I have performed the following: I have examined & evaluated the patient, The case was reviewed & discussed with the resident, I agree w/resident's findings & plan - HPI HPI: 10/05/18 15:43 53 yo M with a pmh of CAD s/p SC s/p CABG, CHF w/ retained EF, GERD, ESRD on HD (T,R,Sat),HTN, HLD, and asthma who presents to the emergency department for evaluation of sudden onset chest pain and missing dialysis appointment this morning. Patient reports sudden onset of chest pain at 12pm and notes coinciding symptoms of coughing and feeling diffuse warmth in his body. Patient states he missed dialysis this morning because he is unable to ambulate downstairs and that the elevator in his building was out of order. The patient denies abdominal pain, headache, dizziness, fevers, chills, nausea, vomiting, as well as bowel and bladder symptoms. Allergies: None Past Medical History: CAD s/p SC s/p CABG, CHF w/ retained EF, GERD, ESRD on HD (T,R,Sat),HTN, HLD, and asthma Social history: Lives with family. No tobacco, ETOH or drug use. Surgical history: Meds: as documented in EMR PMD: Dr. Dunbar - Physicial Exam PE: 10/05/18 15:47 NAD, awake and alert, EOMI, PERRL, nl conjunctiva, anicteric; neck supple. on nasal cannula, lungs with diminished breath sounds bilaterally, mild respiratory distress, tachypneic, mild tachycardia, abdomen soft nontender. Back nontender. LUE fistula, palp thrill. SCOTT x4, no focal neuro deficits. No peripheral edema. normal color for ethnicity, WWP. 10/05/18 17:33 - Medical Decision Making 10/05/18 16:29 See HPI for details. Prior notes reviewed, including admissions, discharges and consultations. Vital signs reviewed, tachypneic, SpO2 92%, placed on supp O2 Vital Signs Temp Pulse Resp BP Pulse Ox 98.7 F 90 23 H 143/92 92 L 10/05/18 15:04 10/05/18 15:04 10/05/18 15:04 10/05/18 15:04 10/05/18 15:04 DDX pulmonary edema, fluid overload, Electrolyte/metabolic derangements, COPD, asthma, ACS, arrhythmia. laboratory results and imaging reviewed, basic labs and lytes wnl, notable for baseline anemia and ESRD. CXR_pulmonary edema/fluid overloaded Cardiac panel_neg trop x1 reassuring, needs serials/EKG EKG normal sinus rhythm at 90 bpm, no interval abnormalities, low voltage waves , narrow QRS, ST and T wave segments and morphology normal. Nonspecific T wave abnormalities ED course -interventions: duonebs, steroids, hold fluids. - hyperK with minimal EKG changes, CXR fluid overloaded - needs HD; will med treat with lasix, (can urinate), calcium, dextrose x2 amps, insulin 10 units, albuterol 10mg nebs. - consults and recommendations: Dr Xavi Moncada for HD missed HD due to elevator situation and inability to get to facility. SX today likely secondary to overloaded state, arranged for HD now. arranging for admission to tele bed. Admit to Dr Dunbar for pulmonary edema/ESRD requiring HD, hyperkalemia.. Discussed results and management plan with pt and family member at bedside, agree with impression, treatment indications, recommendations and plan. 10/05/18 16:53 10/05/18 17:34 10/05/18 17:36 10/05/18 17:40 10/06/18 10:32 Heart Score/ECG Review #1 ECG reviewed & interpreted by me at: 15:00 General ECG Interpretation: Sinus Rhythm, Normal Rate, Normal Intervals 10/05/18 17:39 EKG normal sinus rhythm at 90 bpm, no interval abnormalities, low voltage waves , narrow QRS, ST and T wave segments and morphology normal. Nonspecific T wave abnormalities 10/05/18 17:39 EKG normal sinus rhythm at 90 bpm, no interval abnormalities, low voltage waves , narrow QRS, ST and T wave segments and morphology normal. Nonspecific T wave abnormalities
[2018-10-05] MEDS ORDERED: FUROSEMIDE 40 MG TABLET (FP) PO ONE (16:58)
[2018-10-05] MEDS ORDERED: ACETAMINOPHEN 325 MG TABLET (FP) PO ONE (16:58)
[2018-10-05] MEDS ORDERED: ACETAMINOPHEN 325 MG TABLET (FP) ONE (17:07)
[2018-10-05] MEDS ORDERED: FUROSEMIDE 40 MG TABLET (FP) ONE (17:07)
[2018-10-05 17:16] LABS: ALBUMIN 3.5 g/dl (3.4-5.0); ALK PHOS 724 U/L (45-117); ANION GAP 12 MMOL/L (8-16); BILIRUBIN,TOTAL 0.4 mg/dL (0.2-1); BLOOD UREA NITROGEN 89.4 mg/dL (7-18); CALCIUM 8.8 mg/dL (8.5-10.1); CHLORIDE 99 mmol/L (98-107); CO2 24 mmol/L (21-32); GLUCOSE,RANDOM 142 mg/dL (74-106); SGOT/AST 9 U/L (15-37); SGPT/ALT 12 U/L (13-61); SODIUM 135 mmol/L (136-145); TOT PROT 7.7 g/dl (6.4-8.2)
[2018-10-05 17:21] LABS: CREATININE 10.6 mg/dL (0.55-1.3); POTASSIUM 6.1 mmol/L (3.5-5.1)
[2018-10-05] MEDS ORDERED: SODIUM BICARBONATE 8.4% 50 MEQ/50 ML DISP.SYRIN IVPUSH ONE (17:26)
[2018-10-05] MEDS ORDERED: INSULIN REGULAR HUMAN 100 UNITS/ML *VIAL IVPUSH ONE (17:26)
[2018-10-05] MEDS ORDERED: DEXTROSE 50%-WATER - 25 GM/50 ML VIAL IVPUSH ONE (17:26)
[2018-10-05] MEDS ORDERED: CALCIUM CHLORIDE 10% 1 GM/10 ML *VIAL IVPB ONE (17:26)
[2018-10-05] MEDS ORDERED: CALCIUM GLUCONATE 10% - 1,000 MG/10 ML VIAL IVPB ONE (17:28)
[2018-10-05] MEDS ORDERED: CALCIUM GLUCONATE 10% - 1,000 MG/10 ML VIAL ONE (18:04)
[2018-10-05] MEDS ORDERED: SODIUM BICARBONATE 8.4% 50 MEQ/50 ML VIAL ONE (18:05)
[2018-10-05] MEDS ORDERED: INSULIN REGULAR HUMAN 100 UNITS/ML *VIAL ONE (18:05)
[2018-10-05] MEDS ORDERED: DEXTROSE 50%-WATER 25 GM/50 ML DISP.SYRIN ONE (18:05)
[2018-10-05] MEDS ORDERED: EPOETIN ALFA 10,000 UNIT/1 ML VIAL SQ ONE (19:00)
--- NOTE | 2018-10-05 20:04 | HP ---
Admitting History and Physical - Primary Care Physician PCP: Paulo Dunbar - Admission Chief Complaint: SOB. Chest tighness History of Present Illness: Pt with known ESRD on HD, CAD missed HD today as his building elevator is out for the past 3 days. Pt started to feel SOB and had chest tightness and came to ER. Pt at HD now, has 1 : 30 minutes to go. History Source: Patient Limitations to Obtaining History: No Limitations - Past Medical History Cardiovascular: Yes: CAD, CHF (normal ejection fraction; poor LV compliance; no valvular abnormalities), HTN, Hyperlipdemia Pulmonary: Yes: Asthma, Pneumonia Gastrointestinal: Yes: GERD, GI Bleed Renal/: Yes: Renal Failure, Hemodialysis (ESRD on HD MWF via L arm AVF) Psych: Yes: Anxiety Musculoskeletal: Yes: Other (left metatarsal amputation) Rheumatology: Yes: Gout Endocrine: Yes: Diabetes Mellitus - Past Surgical History Past Surgical History: Yes: Amputation (Left Transmetatarsal), AV Fistula/Graft (LUE), CABG (05/2010), Stent (s/p cardiac cath with stent placement) - Smoking History Smoking history: Never smoked Have you smoked in the past 12 months: No Aproximately how many cigarettes per day: 2 If you are a former smoker, when did you quit?: 1989 - Alcohol/Substance Use Hx Alcohol Use: No History of Substance Use: reports: None - Social History ADL: Independent 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 History of Recent Travel: No Home Medications - Allergies Allergies/Adverse Reactions: Allergies Allergy/AdvReac Type Severity Reaction Status Date / Time No Known Drug Allergies Allergy Verified 05/13/18 06:32 - Home Medications Home Medications: Ambulatory Orders Allopurinol [Zyloprim -] 100 mg PO DAILY 05/06/18 Aspirin [ASA -] 81 mg PO DAILY 05/06/18 Atorvastatin Calcium 80 mg PO HS 05/06/18 Bimatoprost [Lumigan] 1 drop OS HS 05/06/18 Brimonidine Tartrate [Alphagan 0.15% -] 1 drop OS TID 05/06/18 Brinzolamide [Azopt] 1 drop OS TID 05/06/18 Cinacalcet HCl [Sensipar -] 30 mg PO DAILY 05/06/18 Ferrous Sulfate [Feosol] 325 mg PO DAILY 05/06/18 Furosemide [Lasix -] 80 mg PO DAILY 05/06/18 Hydralazine HCl 50 mg PO TID 05/06/18 Indomethacin [Indocin -] 50 mg PO BID 05/06/18 Insulin (LOG) Aspart [NovoLOG -] 8 units SQ TID 05/06/18 Insulin Detemir [Levemir Flextouch] 8 unit SQ HS 05/06/18 Levocetirizine Dihydrochloride 10 mg PO DAILY 05/06/18 Lisinopril [Prinivil] 5 mg PO DAILY 05/06/18 Magnesium Oxide [Magox 400] 400 mg PO TID 05/06/18 Omeprazole 20 mg PO DAILY 05/06/18 Sevelamer Carbonate [Renvela -] 2,400 mg PO CM 05/06/18 Tramadol HCl/Acetaminophen [Tramadol-Acetaminophn 37.5-325] 1 each PO BID Insulin (Levemir) [Levemir Vial] 10 units SQ DAILY@0700 units 05/07/18 Sennosides [Senna -] 2 tab PO HS PRN 30 Days #60 tablet MDD 2 05/17/18 Family Disease History - Family Disease History Family Disease History: Diabetes: Father, Mother, Other: Father, Mother Review of Systems - Review of Systems Constitutional: denies: Chills, Fever Eyes: denies: Eye Pain, Recent Change in Vision HENT: denies: Ear Discharge, Ear Pain, Nasal Congestion, Throat Pain Neck: denies: Lumps, Pain on Movement Cardiovascular: denies: Edema, Palpitations Respiratory: reports: SOB. denies: Cough Gastrointestinal: denies: Abdominal Pain, Nausea, Vomiting Genitourinary: denies: Burning, Dysuria Musculoskeletal: denies: Back Pain, Joint Swelling Integumentary: denies: Bruising, Change in Color Neurological: denies: Change in LOC, Change in Speech, Incoordination, Numbness Endocrine: denies: Excessive Sweating, Intolerance to Cold Hematology/Lymphatic: denies: Easily Bruised, Excessive Bleeding Psychiatric: denies: Anxiety, Depression Physical Examination Vital Signs: Vital Signs Temperature 98.5 F 10/05/18 19:40 Pulse Rate 440 H 10/05/18 19:45 Respiratory Rate 18 10/05/18 19:45 Blood Pressure 152/76 10/05/18 19:45 O2 Sat by Pulse Oximetry (%) 92 L 10/05/18 15:04 Constitutional: Yes: No Distress, Calm Eyes: Yes: Conjunctiva Clear, EOM Intact HENT: No: Drooling, Epistaxis, Rhinnorhea Neck: Yes: Trachea Midline. No: Lymphadenopathy, Tenderness Cardiovascular: Yes: Regular Rate and Rhythm, S1, S2 Respiratory: Yes: Regular, Rales Gastrointestinal: Yes: Normal Bowel Sounds, Soft. No: Tenderness ...Rectal Exam: Yes: Deferred Renal/: No: CVA Tenderness - Left, CVA Tenderness - Right Musculoskeletal: No: Back Pain, Joint Swelling Integumentary: No: Bruising, Rash Neurological: Yes: Alert, Oriented, Other (motor and sensory examination is symmetric in UE/ LE/ face) Labs: CBC, BMP 10/05/18 15:51 10/05/18 15:51 Imaging - Results Chest X-ray: Report Reviewed Problem List - Problems (1) ESRD (end stage renal disease) on dialysis Code(s): N18.6 - END STAGE RENAL DISEASE; Z99.2 - DEPENDENCE ON RENAL DIALYSIS (2) Hyperkalemia Code(s): E87.5 - HYPERKALEMIA (3) CAD (coronary artery disease) Code(s): I25.10 - ATHSCL HEART DISEASE OF [place] CORONARY ARTERY W/O ANG PCTRS (4) CHF (congestive heart failure) Code(s): I50.9 - HEART FAILURE, UNSPECIFIED (5) Diabetes mellitus Code(s): E11.9 - TYPE 2 DIABETES MELLITUS WITHOUT COMPLICATIONS Qualifiers: Diabetes mellitus type: type 2 Diabetes mellitus complication status: with kidney complications Diabetes mellitus complication detail: with chronic kidney disease (6) GERD (gastroesophageal reflux disease) Code(s): K21.9 - GASTRO-ESOPHAGEAL REFLUX DISEASE WITHOUT ESOPHAGITIS (7) Hyperlipemia Code(s): E78.5 - HYPERLIPIDEMIA, UNSPECIFIED (8) Hypertension Code(s): I10 - ESSENTIAL (PRIMARY) HYPERTENSION Qualifiers: Hypertension type: essential hypertension Qualified Code(s): I10 - Essential (primary) hypertension Assessment/Plan Continue HD Reanl consult Admit ot monitor bed Serial CE AM labs
--- NOTE | 2018-10-05 21:07 | EKG ---
Test Reason : Blood Pressure : / mmHG Vent. Rate : 090 BPM Atrial Rate : 090 BPM P-R Int : 198 ms QRS Dur : 098 ms QT Int : 380 ms P-R-T Axes : 062 -12 082 degrees QTc Int : 464 ms NORMAL SINUS RHYTHM LOW VOLTAGE QRS CANNOT RULE OUT ANTEROSEPTAL INFARCT (CITED ON OR BEFORE 13-DEC-2009) ABNORMAL ECG WHEN COMPARED WITH ECG OF 13-MAY-2018 08:26, NO SIGNIFICANT CHANGE WAS FOUND Confirmed by MD BRIDGER, ARACELY ([id number]) on 10/05/2018 9:06:58 PM Referred By: Confirmed By:ARACELY SPARKS MD
[2018-10-05 22:34] LABS: ANION GAP 10 MMOL/L (8-16); BLOOD UREA NITROGEN 45.1 mg/dL (7-18); CHLORIDE 100 mmol/L (98-107); CO2 28 mmol/L (21-32); CREATININE 5.6 mg/dL (0.55-1.3); GLUCOSE,RANDOM 250 mg/dL (74-106); SODIUM 138 mmol/L (136-145)
[2018-10-06] MEDS: INSULIN SLIDING SCALE (NOVOLOG) 1 VIAL SQ SCH ×3 (06:59→17:15)
--- NOTE | 2018-10-06 09:54 | PN ---
Progress Note, Physician History of Present Illness: Pt w/o SOB, CP, chest tightness, palp, abd pain - Current Medication List Current Medications: Active Medications Insulin Aspart (Novolog Vial Sliding Scale -) 1 vial SQ [facility]; Protocol Last Admin: 10/06/18 06:59 Dose: 10 units Pending Update - Objective Vital Signs: Vital Signs Temperature 98.7 F 10/06/18 05:40 Pulse Rate 105 H 10/06/18 05:40 Respiratory Rate 20 10/06/18 05:40 Blood Pressure 146/69 10/06/18 05:40 O2 Sat by Pulse Oximetry (%) 100 10/05/18 22:33 Constitutional: Yes: No Distress, Calm Cardiovascular: Yes: Regular Rate and Rhythm, S1, S2 Respiratory: Yes: Regular, CTA Bilaterally (coarse at bases) Gastrointestinal: Yes: Normal Bowel Sounds, Soft. No: Tenderness Edema: No Neurological: Yes: Alert, Oriented Labs: CBC, BMP 10/05/18 15:51 10/05/18 21:44 Problem List - Problems (1) ESRD (end stage renal disease) on dialysis Code(s): N18.6 - END STAGE RENAL DISEASE; Z99.2 - DEPENDENCE ON RENAL DIALYSIS (2) Hyperkalemia Code(s): E87.5 - HYPERKALEMIA (3) CAD (coronary artery disease) Code(s): I25.10 - ATHSCL HEART DISEASE OF [place] CORONARY ARTERY W/O ANG PCTRS (4) CHF (congestive heart failure) Code(s): I50.9 - HEART FAILURE, UNSPECIFIED (5) Diabetes mellitus Code(s): E11.9 - TYPE 2 DIABETES MELLITUS WITHOUT COMPLICATIONS Qualifiers: Diabetes mellitus type: type 2 Diabetes mellitus complication status: with kidney complications Diabetes mellitus complication detail: with chronic kidney disease (6) GERD (gastroesophageal reflux disease) Code(s): K21.9 - GASTRO-ESOPHAGEAL REFLUX DISEASE WITHOUT ESOPHAGITIS (7) Hyperlipemia Code(s): E78.5 - HYPERLIPIDEMIA, UNSPECIFIED (8) Hypertension Code(s): I10 - ESSENTIAL (PRIMARY) HYPERTENSION Qualifiers: Hypertension type: essential hypertension Qualified Code(s): I10 - Essential (primary) hypertension (9) Anemia in ESRD (end-stage renal disease) Code(s): N18.6 - END STAGE RENAL DISEASE; D63.1 - ANEMIA IN CHRONIC KIDNEY DISEASE Assessment/Plan Pt for HD today; likely can go home if home elevator is functional. Renal consult Admitted to monitor bed Serial CE are negative Case was d/w CM and floor nursing site supervisor.
[2018-10-06] MEDS ORDERED: SODIUM CHLORIDE 250 ML IV PRN (11:37)
--- NOTE | 2018-10-06 13:05 | CONSULT ---
Consult - text type - Consultation Consultation Note: Renal consult for ESRD on HD and hyperkalemia This is a 53 year old gentleman with history of ESRD on HD (TTS), CAD, CHF, PVD, hypertension, DM type 2 who presented from home with SOB after missing a dialysis session. Pt reports that the elevator in his apartment was out and he could not make it to his Thursday dialysis Tx. Last outpatient dialysis Was Thursday. s/p emergent HD last night for 2 hours. Currently feels better, sob has improved. Denies any CP, fever, chills, N/V/D. PMhx: as above Allergies: NKDA Family Hx: NC Social Hx: No T/A/D ROS: as per HPI, all other pertinent ros negative Home Medications Medication Instructions Recorded Allopurinol [Zyloprim -] 100 mg PO DAILY 05/06/18 Aspirin [ASA -] 81 mg PO DAILY 05/06/18 Atorvastatin Calcium 80 mg PO HS 05/06/18 Bimatoprost [Lumigan] 1 drop OS HS 05/06/18 Brimonidine Tartrate [Alphagan 1 drop OS TID 05/06/18 0.15% -] Brinzolamide [Azopt] 1 drop OS TID 05/06/18 Cinacalcet HCl [Sensipar -] 30 mg PO DAILY 05/06/18 Ferrous Sulfate [Feosol] 325 mg PO DAILY 05/06/18 Furosemide [Lasix -] 80 mg PO DAILY 05/06/18 Hydralazine HCl 50 mg PO TID 05/06/18 Indomethacin [Indocin -] 50 mg PO BID 05/06/18 Insulin (LOG) Aspart [NovoLOG -] 8 units SQ TID 05/06/18 Insulin Detemir [Levemir Flextouch] 8 unit SQ HS 05/06/18 Levocetirizine Dihydrochloride 10 mg PO DAILY 05/06/18 Lisinopril [Prinivil] 5 mg PO DAILY 05/06/18 Magnesium Oxide [Magox 400] 400 mg PO TID 05/06/18 Omeprazole 20 mg PO DAILY 05/06/18 Sevelamer Carbonate [Renvela -] 2,400 mg PO CM 05/06/18 Tramadol HCl/Acetaminophen 1 each PO BID 05/06/18 [Tramadol-Acetaminophn 37.5-325] Insulin (Levemir) [Levemir Vial] 10 units SQ DAILY@0700 units 05/07/18 Sennosides [Senna -] 2 tab PO HS PRN 30 Days #60 tablet 05/17/18 MDD 2 Vital Signs Temperature 98.7 F 10/06/18 05:40 Pulse Rate 105 H 10/06/18 05:40 Respiratory Rate 20 10/06/18 05:40 Blood Pressure 146/69 10/06/18 05:40 O2 Sat by Pulse Oximetry (%) 100 10/05/18 22:33 Intake & Output 10/03/18 10/04/18 10/05/18 10/06/18 23:59 23:59 23:59 23:59 Intake Total 700 50 Output Total 3500 Balance -2800 50 Weight 108.862 kg 101.06 kg NAD awake and alert neck supple, no JVD RRR, no M/R CTA, no rales or wheeze soft NT/ND + edema in LE left arm AVG right IJ tunneled catheter CBC, BMP 10/05/18 15:51 10/05/18 21:44 Current Medications Sodium Chloride (Normal Saline -) 250 mls @ 3,000 mls/hr IV PRN PRN PRN Reason: Hypotension during Dialysis Stop: 10/07/18 11:37 Insulin Aspart (Novolog Vial Sliding Scale -) 1 vial SQ [facility]; Protocol Last Admin: 10/06/18 06:59 Dose: 10 units 53 year old gentleman with history of ESRD on HD (TTS), CAD, CHF, PVD, hypertension, DM type 2 who presented from home with SOB after missing a dialysis session. 1. Hyperkalemia due to missed HD 2. FLuid overload due to missed HD 3. ESRD on HD 4. Chronic Anemia 5. Hypertension 6. CAD/CHF s/p emergent dialysis yesterday evening, will get additional 2.5 hour HD today with UF as tolerated K is now improve, volume status is now imporved if pt feels well can plan discharge after dialysis today Hgb low, but no emergent indicaton for PATIENT SERVICES REPRESENTATIVE getting long acting DAVON at outpatient HD Thank you Antwan Hurley DO
[2018-10-06 13:35] VITALS: TEMP 98.9
[2018-10-06 14:00] LABS: HEMOGLOBIN 7.7 GM/dL (11.7-16.9); MCH 29.8 pg (25.7-33.7); MCHC 32.2 g/dl (32.0-35.9); MEAN CELL VOLUME 92.6 fl (80-96); MEAN PLT VOLUME 8.2 fl (7.5-11.1); PLATELET COUNT 221 K/MM3 (134-434); RBC 2.59 M/mm3 (4.00-5.60); RDW 18.3 % (11.9-15.9); WHITE BLOOD COUNT 5.8 K/mm3 (4.0-10.0)
[2018-10-06 14:32] LABS: ALBUMIN 3.4 g/dl (3.4-5.0); BILIRUBIN,TOTAL 0.4 mg/dL (0.2-1); BLOOD UREA NITROGEN 72.3 mg/dL (7-18); CALCIUM 8.4 mg/dL (8.5-10.1); POTASSIUM 4.9 mmol/L (3.5-5.1); TOT PROT 7.4 g/dl (6.4-8.2)
[2018-10-06 14:58] LABS: CREATININE 8.4 mg/dL (0.55-1.3)
[2018-10-06 15:20] VITALS: PULSE 94
[2018-10-06 16:04] VITALS: BP 129/63
--- NOTE | 2018-10-06 17:30 | DS ---
Physical Examination Vital Signs: Vital Signs Temperature 98.9 F 10/06/18 13:15 Pulse Rate 94 H 10/06/18 15:55 Respiratory Rate 18 10/06/18 15:55 Blood Pressure 129/63 10/06/18 15:55 O2 Sat by Pulse Oximetry (%) 100 10/05/18 22:33 Findings/Remarks: See Progress NOte for HPI, PE, ROS, Plan Labs: CBC, BMP 10/06/18 13:20 10/06/18 13:20 Discharge Summary Reason For Visit: END STAGE RENAL FAILURE ON DIALYSIS, HYPERKALEMIA Current Active Problems ESRD (end stage renal disease) on dialysis (Acute) Hyperkalemia (Acute) Hospital Course: Pt came to ER with SOB and chest tightness after missed his HD secondary to builing elevator not functioning. Pt was gived HD last night and today. Pt was noticed to be anemic; pt's condition was d/w Dr. Hurley and suggested treatment at HD and CBC f/u. Pt to DC'ed home with HD and outpt office f/u. Condition: Stable - Instructions Diet, Activity, Other Instructions: Resume home medications ( No changes were made) Resume diet Disposition: HOME - Home Medications Comprehensive Discharge Medication List: Ambulatory Orders Resume home medications ( No changes were made)
--- NOTE | 2018-10-08 11:54 | EKG ---
Test Reason : Blood Pressure : / mmHG Vent. Rate : 116 BPM Atrial Rate : 116 BPM P-R Int : 176 ms QRS Dur : 094 ms QT Int : 322 ms P-R-T Axes : 062 -15 080 degrees QTc Int : 447 ms SINUS TACHYCARDIA POSSIBLE LEFT ATRIAL ENLARGEMENT LOW VOLTAGE QRS CANNOT RULE OUT ANTEROSEPTAL INFARCT (CITED ON OR BEFORE 13-DEC-2009) ABNORMAL ECG WHEN COMPARED WITH ECG OF 05-OCT-2018 15:00, NO SIGNIFICANT CHANGE WAS FOUND Confirmed by GREY FISCHER MD ([id number]) on 10/08/2018 11:54:07 AM Referred By: Confirmed By:GREY FISCHER MD
== END 2018-10-06 18:53 | disposition home or self-care (01) | DRG 291 ==
LOC: JER 14:32 → JERBED 19:45 → J4W 22:10
PROVIDERS: ADMIT Internal Medicine; ATTEND Internal Medicine
PROC: 3E0F7GC Introduction of Other Therapeutic Substance into Respiratory Tract, Via Natural or Artificial Opening (ICD-10-PCS; principal; 2018-10-05)
PROC: 5A1D70Z Performance of Urinary Filtration, Intermittent, Less than 6 Hours Per Day (ICD-10-PCS; 2018-10-05)
DX: I13.2 Hypertensive heart and chronic kidney disease with heart failure and with stage 5 chronic kidney disease, or end stage renal disease (principal); N18.6 End stage renal disease; J45.901 Unspecified asthma with (acute) exacerbation; E87.5 Hyperkalemia; Z99.2 Dependence on renal dialysis; I25.10 Atherosclerotic heart disease of native coronary artery without angina pectoris; E11.22 Type 2 diabetes mellitus with diabetic chronic kidney disease; K21.9 Gastro-esophageal reflux disease without esophagitis; E78.5 Hyperlipidemia, unspecified; D64.9 Anemia, unspecified; F41.9 Anxiety disorder, unspecified; J44.9 Chronic obstructive pulmonary disease, unspecified; Z95.1 Presence of aortocoronary bypass graft; Z87.891 Personal history of nicotine dependence; Z89.432 Acquired absence of left foot; Z79.4 Long term (current) use of insulin; I50.9 Heart failure, unspecified; I73.9 Peripheral vascular disease, unspecified; D51.9 Vitamin B12 deficiency anemia, unspecified; D57.1 Sickle-cell disease without crisis
CPT/HCPCS: 36415; 71045-TC-FY; 80048; 80053; 82550; 82553; 82962; 83880; 84484; 85025; 85027; 86803; 87340; 93005; 93010; 99284-25; J0885

== ENCOUNTER 2019-03-14 12:12 | Inpatient (IN) | payer OTHER ==
[2019-03-14] MEDS ORDERED: HYDROmorphone HCL CARPU-JECT 2 MG/1 ML DISP.SYRIN IVPUSH ONE ×3 (13:04→17:40)
--- NOTE | 2019-03-14 13:04 | PDOC ---
History of Present Illness - General Chief Complaint: Injury Stated Complaint: Injury Time Seen by Provider: 03/14/19 13:02 History Source: Patient Exam Limitations: No Limitations - History of Present Illness Initial Comments: 03/14/19 13:36 53 yo M with a hx of HTN, HLD, DM, asthma, CHF (normal EF%, poor LV compliance) , ESRD MWF with left AVF, CAD s/p CABG (2010; stent), GERD, and amputation of the left metatarsal presents to the emergency department s/p mechanical fall shortly after his dialysis treatment with right ankle and knee pain. Per the patient, he walked down a ramp and hyper plantar flexed his right foot and had immediate pain afterwards. He did not fall because his caught him. Denies the following prior to the fall: fever, chills, palpitations, chest pain, nausea , vomiting, lightheadedness. Currently, he is having pain on his right knee and ankle. Allergies: NKDA Past History - Past Medical History Allergies/Adverse Reactions: Allergies Allergy/AdvReac Type Severity Reaction Status Date / Time No Known Drug Allergies Allergy Verified 05/13/18 06:32 Home Medications: Ambulatory Orders Allopurinol [Zyloprim -] 100 mg PO DAILY 05/06/18 Aspirin [ASA -] 81 mg PO DAILY 05/06/18 Atorvastatin Calcium 80 mg PO HS 05/06/18 Bimatoprost [Lumigan] 1 drop OS HS 05/06/18 Brimonidine Tartrate [Alphagan 0.15% -] 1 drop OS TID 05/06/18 Brinzolamide [Azopt] 1 drop OS TID 05/06/18 Cinacalcet HCl [Sensipar -] 30 mg PO DAILY 05/06/18 Ferrous Sulfate [Feosol] 325 mg PO DAILY 05/06/18 Furosemide [Lasix -] 80 mg PO DAILY 05/06/18 Hydralazine HCl 50 mg PO TID 05/06/18 Indomethacin [Indocin -] 50 mg PO BID 05/06/18 Insulin (LOG) Aspart [NovoLOG -] 8 units SQ TID 05/06/18 Insulin Detemir [Levemir Flextouch] 8 unit SQ HS 05/06/18 Levocetirizine Dihydrochloride 10 mg PO DAILY 05/06/18 Lisinopril [Prinivil] 5 mg PO DAILY 05/06/18 Magnesium Oxide [Magox 400] 400 mg PO TID 05/06/18 Omeprazole 20 mg PO DAILY 05/06/18 Sevelamer Carbonate [Renvela -] 2,400 mg PO CM 05/06/18 Tramadol HCl/Acetaminophen [Tramadol-Acetaminophn 37.5-325] 1 each PO BID Insulin (Levemir) [Levemir Vial] 10 units SQ DAILY@0700 units 05/07/18 Sennosides [Senna -] 2 tab PO HS PRN 30 Days #60 tablet MDD 2 05/17/18 Anemia: Yes Asthma: No Cancer: No Cardiac Disorders: Yes ("silent [place]" CABG x 2 vessels 05/24/2010) CVA: No COPD: No CHF: Yes DVT: No Dementia: No Diabetes: Yes Dialysis: Yes (,,) GI Disorders: Yes (GERD) Disorders: No HTN: Yes Hypercholesterolemia: Yes Liver Disease: No Seizures: No Thyroid Disease: No - Surgical History Abdominal Surgery: No Appendectomy: No Cardiac Surgery: Yes (CABG 05/2010, cardiac stent may 2013) Cholecystectomy: No Lung Surgery: No Orthopedic Surgery: Yes (transmet amp L foot) - Immunization History Immunization Up to Date: Yes - Psycho Social/Smoking Cessation Hx Smoking Status: No Smoking History: Never smoked Years of Tobacco Use: 0 Have you smoked in the past 12 months: No Number of Cigarettes Smoked Daily: 2 If you are a former smoker, when did you quit?: 1990 Cigars Per Day: 0 'Breaking Loose' booklet given: 06/04/12 Hx Alcohol Use: No Drug/Substance Use Hx: No Substance Use Type: None Hx Substance Use Treatment: No Review of Systems - Review of Systems Able to Perform ROS?: Yes Is the patient limited [place] proficient: No Constitutional: No: Chills, Diaphoresis, Fever, Weakness HEENTM: No: Eye Pain, Ear Pain, Nose Pain, Throat Pain, Mouth Pain Respiratory: No: Cough, Shortness of Breath, Hemoptysis Cardiac (ROS): No: Chest Pain, Lightheadedness, Palpitations, Syncope, Chest Tightness ABD/GI: No: Constipated, Diarrhea, Nausea, Rectal Bleeding, Vomiting, Tarry Stools : No: Burning, Dysuria, Hematuria, Incontinence Musculoskeletal: No: Back Pain, Neck Pain, Joint Stiffness Integumentary: No: Bruising, Erythema, Pallor, Rash Neurological: No: Headache, Numbness, Tremors Psychiatric: No: Change in Appetite Endocrine: No: Unexplained Weight Loss Hematologic/Lymphatic: No: Anemia *Physical Exam - Vital Signs Last Vital Signs Temp Pulse Resp BP Pulse Ox 98.0 F 107 H 150/76 98 03/14/19 12:22 03/14/19 12:22 03/14/19 12:22 03/14/19 12:42 - Physical Exam General Appearance: Yes: Nourished, Appropriately Dressed, Obese. No: Apparent Distress, Intoxicated HEENT: positive: EOMI, Normal Voice, Symmetrical, Pharynx Normal, Hearing Grossly Normal. negative: NIKITA (cataracts located in left eye with conjunctival hemorrhage no pain), Pale Conjunctivae, Scleral Icterus (R), Scleral Icterus (L), Muffled/Hoarse voice, Pharyngeal Erythema, Tonsillar Exudate, Tonsillar Erythema, Excessive drooling Neck: positive: Trachea midline, Supple. negative: Tender, Lymphadenopathy (R) , Lymphadenopathy (L) Respiratory/Chest: positive: Lungs Clear, Normal Breath Sounds. negative: Chest Tender, Respiratory Distress, Accessory Muscle Use, Crackles, Rales, Rhonchi Cardiovascular: positive: Regular Rhythm, Regular Rate, S1, S2. negative: Systolic Murmur Gastrointestinal/Abdominal: positive: Normal Bowel Sounds, Flat, Soft. negative : Tender, Distended, Guarding, Rebound Lymphatic: negative: Adenopathy Musculoskeletal: positive: Normal Inspection. negative: CVA Tenderness, Vertebral Tenderness Extremity: positive: Tender (medial malleolus and lateral malleolus tenderness. unstable joint. tenderness to palpation on the knee. ), Pelvis Stable, Other ( pain elicitied with rom of the right knee). negative: Normal Inspection ( stasis dermatitis bilaterally with amputation on left metatarsals), Normal Range of Motion (unable to active ROM his right ankle and limited ROM on right knee) Integumentary: positive: Normal Color, Dry, Warm Neurologic: positive: Fully Oriented, Alert, Normal Mood/Affect ED Treatment Course - LABORATORY CBC & Chemistry Diagram: 03/14/19 15:46 03/14/19 15:46 - RADIOLOGY Radiology Studies Ordered: Category Date Time Status ANKLE & FOOT-RIGHT* [RAD] Stat Radiology 03/14/19 12:55 Ordered KNEE 3 POS-RIGHT [RAD] Stat Radiology 03/14/19 12:55 Ordered PELVIS [RAD] Stat Radiology 03/14/19 12:55 Ordered Medical Decision Making - Medical Decision Making 53 yo M with a hx of HTN, HLD, DM, asthma, CHF (normal EF%, poor LV compliance) , ESRD MWF with left AVF, CAD s/p CABG (2010; stent), GERD, and amputation of the left metatarsal presents to the emergency department s/p mechanical fall shortly after his dialysis treatment with right ankle and knee pain. Initial vitals: Initial Vital Signs Temp Pulse BP Pulse Ox 98.0 F 107 H 150/76 92 L 03/14/19 12:22 03/14/19 12:22 03/14/19 12:22 03/14/19 12:22 Work up: ddx: bi vs tri malleolar vs maisonneuve fracture vs patella fracture vs tendon patella vs quadricep tendon disruption. Laboratory Tests 03/14/19 03/14/19 03/14/19 15:46 15:46 15:46 WBC 6.7 RBC 3.06 L Hgb 9.5 L Hct 29.7 L D MCV 97.2 H MCH 31.2 MCHC 32.1 RDW 16.4 H Plt Count 219 MPV 8.7 Absolute Neuts (auto) 5.6 Neutrophils % 84.3 H Lymphocytes % 5.6 L D Monocytes % 6.7 Eosinophils % 2.7 Basophils % 0.7 Nucleated RBC % 0 PT with INR 12.90 INR 1.09 Sodium 136 Potassium 4.1 Chloride 99 Carbon Dioxide 25 Anion Gap 12 BUN 39.5 H Creatinine 5.7 H Est GFR (CKD-EPI)AfAm 12.09 Est GFR (CKD-EPI)NonAf 10.43 Random Glucose 154 H Calcium 9.3 Total Bilirubin 0.6 AST 9 L ALT 11 L Alkaline Phosphatase 603 H Total Protein 7.9 Albumin 3.5 Blood Type Antibody Screen 03/14/19 15:46 WBC RBC Hgb Hct MCV MCH MCHC RDW Plt Count MPV Absolute Neuts (auto) Neutrophils % Lymphocytes % Monocytes % Eosinophils % Basophils % Nucleated RBC % PT with INR INR Sodium Potassium Chloride Carbon Dioxide Anion Gap BUN Creatinine Est GFR (CKD-EPI)AfAm Est GFR (CKD-EPI)NonAf Random Glucose Calcium Total Bilirubin AST ALT Alkaline Phosphatase Total Protein Albumin Blood Type O POSITIVE Antibody Screen Negative the patient completed his dialysis prior to the fracture xray reveals comminuted fracture of the distal tibia with possible transverse fracture non displaced of the fibula distal by my read; official reads confirm comminuted fracture of the distal tibia. Dr. Julian was consulted; patient is not a surgical candidate and would require external casting Patient was casted by Dr. Julian. The patient is unable to bear weight. Will require admission for services to be arranged. Patient was endorsed to Dr. Dunbar EKG: Sinus tachycardia with Q waves in V2-V3 that were previously seen without ST elevations of depressions. No TWI Dispo; Admit Discharge - Discharge Information Problems reviewed: Yes Clinical Impression/Diagnosis: ESRD (end stage renal disease) on dialysis - Follow up/Referral - Patient Discharge Instructions - Post Discharge Activity
[2019-03-14] MEDS ORDERED: HYDROmorphone HCl 2 MG/ML VIAL ONE ×3 (13:11→17:42)
--- NOTE | 2019-03-14 13:27 | PDOC ---
Attending Attestation - Resident Resident Name: Orlando Milan - ED Attending Attestation I have performed the following: I have examined & evaluated the patient, The case was reviewed & discussed with the resident, I agree w/resident's findings & plan, Exceptions are as noted - HPI HPI: 53 yo M history HTN, HL, DM, asthma, CHF, ESRD on MWF, CAD, GERD, amputation of L metatarsal presenting with R foot pain after he plantar flexed his foot. + Deformity. Denies fever, skin changes. - Physicial Exam PE: GENERAL: Awake, alert, and fully oriented, in no acute distress HEAD: No signs of trauma EYES: PERRLA, EOMI, sclera anicteric, conjunctiva clear ENT: Auricles normal inspection, hearing grossly normal, nares patent, oropharynx clear without exudates. Moist mucosa NECK: Normal ROM, supple, no lymphadenopathy, JVD, or masses LUNGS: Breath sounds equal, clear to auscultation bilaterally. No wheezes, and no crackles HEART: Regular rate and rhythm, normal S1 and S2, no murmurs, rubs or gallops ABDOMEN: Soft, nontender, normoactive bowel sounds. No guarding, no rebound. No masses EXTREMITIES: +Obvious deformity to the R ankle. Remainder of extremities with ormal range of motion, no edema. No clubbing or cyanosis. No cords, erythema, or tenderness NEUROLOGICAL: Cranial nerves II through XII grossly intact. Normal speech. Motor and sensation intact. Gait not tested due to nature of complaint SKIN: Warm, dry, normal turgor. +Dry flaky skin to the feet B/L. - Medical Decision Making Pt with R ankle fx. Will d/w ortho. Plan as per ortho.
[2019-03-14 16:06] LABS: BASO % 0.7 % (0-2.0); EOS % 2.7 % (0-4.5); HEMATOCRIT 29.7 % (35.4-49); HEMOGLOBIN 9.5 GM/dL (11.7-16.9); LYMPH % 5.6 % (8-40); MCH 31.2 pg (25.7-33.7); MCHC 32.1 g/dl (32.0-35.9); MEAN CELL VOLUME 97.2 fl (80-96); MEAN PLT VOLUME 8.7 fl (7.5-11.1); MONO % 6.7 % (3.8-10.2); NEUT % 84.3 % (42.8-82.8); PLATELET COUNT 219 K/MM3 (134-434); RBC 3.06 M/mm3 (4.00-5.60); RDW 16.4 % (11.9-15.9); WHITE BLOOD COUNT 6.7 K/mm3 (4.0-10.0)
[2019-03-14 16:24] LABS: INR 1.09 (0.83-1.09); PROTHROMBIN TIME (PATIENT) 12.9 SEC (9.7-13.0)
[2019-03-14 16:28] LABS: ALBUMIN 3.5 g/dl (3.4-5.0); BILIRUBIN,TOTAL 0.6 mg/dL (0.2-1); BLOOD UREA NITROGEN 39.5 mg/dL (7-18); CALCIUM 9.3 mg/dL (8.5-10.1); CREATININE 5.7 mg/dL (0.55-1.3); POTASSIUM 4.1 mmol/L (3.5-5.1); TOT PROT 7.9 g/dl (6.4-8.2)
[2019-03-14] MEDS ORDERED: SENNOSIDES 8.6MG TABLET (FP) PO PRN (17:54)
[2019-03-14] MEDS ORDERED: PANTOPRAZOLE 40 MG TABLET PO ONE (17:59)
[2019-03-14] MEDS ORDERED: ACETAMINOPHEN 325 MG TABLET (FP) PO PRN (18:02)
[2019-03-14] MEDS ORDERED: PANTOPRAZOLE SODIUM 40 MG VIAL ONE (20:03)
[2019-03-14] MEDS ORDERED: MORPHINE SULFATE 2 MG/ML VIAL ONE ×2 (20:20→23:47)
[2019-03-14] MEDS: MORPHINE SULFATE 2 MG/ML VIAL IVPUSH PRN ×2 (20:25→23:52)
[2019-03-14] MEDS ORDERED: hydrALAZINE HCL 25 MG TABLET (FP) ONE (21:07)
[2019-03-14] MEDS ORDERED: MAGNESIUM OXIDE 400 MG TABLET (FP) ONE (21:07)
[2019-03-14] MEDS ORDERED: ATORVASTATIN CA 80 MG TABLET (FP) ONE (21:08)
[2019-03-14] MEDS ORDERED: INSULIN (LEVEMIR) 100 UNITS/ML UNITS SQ ONE (21:08)
[2019-03-14] MEDS ORDERED: INSULIN (NOVOLOG) ASPART 100 UNITS/ML 10ML VIAL ONE (21:09)
--- NOTE | 2019-03-14 21:39 | CON.ORTH ---
Consult Consult Specialty:: orthopedics - History of Present Illness Chief Complaint: R ankle pain History of Present Illness: 53y M here for R ankle pain after a trip down a ramp c/o pain in right ankle notes no pain elsewhere does have decreased sensation at baseline in limb - Past Medical History Cardio/Vascular: Yes: CAD, CHF (normal ejection fraction; poor LV compliance; no valvular abnormalities), HTN, Hyperlipdemia Pulmonary: Yes: Asthma, Pneumonia Gastrointestinal: Yes: GERD, GI Bleed Renal/: Yes: Renal Failure, Hemodialysis (ESRD on HD MWF via L arm AVF) Psych: Yes: Anxiety Musculoskeletal: Yes: Other (left metatarsal amputation) Rheumatology: Yes: Gout Endocrine: Yes: Diabetes Mellitus Additional Medical History: as above in HPI; L eye blindness; on renal transplant list at [facility]. 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 History of Recent Travel: No Home Medications - Allergies Allergies/Adverse Reactions: Allergies Allergy/AdvReac Type Severity Reaction Status Date / Time No Known Drug Allergies Allergy Verified 05/13/18 06:32 - Home Medications Home Medications: Ambulatory Orders Allopurinol [Zyloprim -] 100 mg PO DAILY 05/06/18 Aspirin [ASA -] 81 mg PO DAILY 05/06/18 Atorvastatin Calcium 80 mg PO HS 05/06/18 Bimatoprost [Lumigan] 1 drop OS HS 05/06/18 Brimonidine Tartrate [Alphagan 0.15% -] 1 drop OS TID 05/06/18 Brinzolamide [Azopt] 1 drop OS TID 05/06/18 Cinacalcet HCl [Sensipar -] 30 mg PO DAILY 05/06/18 Ferrous Sulfate [Feosol] 325 mg PO DAILY 05/06/18 Furosemide [Lasix -] 80 mg PO DAILY 05/06/18 Hydralazine HCl 50 mg PO TID 05/06/18 Indomethacin [Indocin -] 50 mg PO BID 05/06/18 Insulin (LOG) Aspart [NovoLOG -] 8 units SQ TID 05/06/18 Insulin Detemir [Levemir Flextouch] 8 unit SQ HS 05/06/18 Levocetirizine Dihydrochloride 10 mg PO DAILY 05/06/18 Lisinopril [Prinivil] 5 mg PO DAILY 05/06/18 Magnesium Oxide [Magox 400] 400 mg PO TID 05/06/18 Omeprazole 20 mg PO DAILY 05/06/18 Sevelamer Carbonate [Renvela -] 2,400 mg PO CM 05/06/18 Tramadol HCl/Acetaminophen [Tramadol-Acetaminophn 37.5-325] 1 each PO BID Insulin (Levemir) [Levemir Vial] 10 units SQ DAILY@0700 units 05/07/18 Sennosides [Senna -] 2 tab PO HS PRN 30 Days #60 tablet MDD 2 05/17/18 Review of Systems - Review of Systems Constitutional: denies: Chills, Diaphoresis, Fever Eyes: denies: Recent Change in Vision Cardiovascular: denies: Chest Pain Gastrointestinal: denies: Abdominal Pain Physical Exam for Ortho Vital Signs: Vital Signs Temperature 99.4 F 03/14/19 20:00 Pulse Rate 105 H 03/14/19 20:00 Respiratory Rate 20 03/14/19 20:00 Blood Pressure 144/75 03/14/19 20:00 O2 Sat by Pulse Oximetry (%) 97 03/14/19 20:00 Constitutional: Yes: No Distress, Calm Extremities: Yes: Other (RLE demonstrates mild swelling. No gross deformity. Tender about ankle. Chronic stasis skin changes. Thready DP. EHL FHL intact. Sensation intact to light touch but subjectively and globally decreased.) Labs: CBC, BMP 03/14/19 15:46 03/14/19 15:46 INR, PTT INR 1.09 (0.83-1.09) 03/14/19 15:46 Imaging - Results X-ray: Report Reviewed, Image Reviewed (Minimally displaced and nonangulated fracture of distal tibia and fibular metaphyseal region. Osteoporosis. Vascular markings.) Problem List - Problems (1) Closed pilon fracture of right tibia Assessment/Plan: I reviewed today's findings with Scott and his advised he suffered a fracture of the distal tibia and fibula in typical cases I would recommend ORIF to achieve the most anatomic result given the poor condition of his skin, poor circulation and osteoporotic bone, the chance of operative complications is unacceptably high I am recommending closed treatment with a long leg cast advised casting is not without its complications, skin necrosis is possible and it will be difficult if not impossible to maintain anatomic reduction of a comminuted fracture like this after review he is electing to proceed with closed reduction procedure: leg was hung off bed, a very well padded short leg cast was placed the limb was rested on a chair and his thigh was abducted off the bed, the cast was then converted into a long leg cast post casting films show no angular deformity but mild medial translation, given lack of angulation this should heal acceptably and result in a plantigrade foot patient to be strict nonweightbearing anticipate about 8 weeks of treatment, 4 in [facility], 2-4 in [facility] and then cam boot elevate for swelling plan to obtain follow up films in 1 week Code(s): S82.871A - DISPLACED PILON FRACTURE OF RIGHT TIBIA, INIT FOR CLOS FX Qualifiers: Encounter type: initial encounter Fracture alignment: displaced Qualified Code(s): S82.871A - Displaced pilon fracture of right tibia, initial encounter for closed fracture
[2019-03-14] MEDS ORDERED: Insulin (LOG) Aspart 100 UNITS/ML VIAL SQ SCH (22:00)
[2019-03-14] MEDS ORDERED: ACETAMINOPHEN 325 MG TABLET (FP) ONE (22:29)
[2019-03-14] MEDS: ATORVASTATIN CA 80 MG TABLET (FP) PO SCH (22:45)
[2019-03-14] MEDS: INSULIN (LEVEMIR) 100 UNITS/ML UNITS SQ SCH (22:45)
[2019-03-14] MEDS: MAGNESIUM OXIDE 400 MG TABLET (FP) PO SCH (22:45)
[2019-03-14] MEDS: hydrALAZINE HCL 50 MG TABLET (FP) PO SCH (22:45)
[2019-03-14] MEDS: BRIMONIDINE TARTRATE 0.15% OPHTHALMIC 5 ML BOTTLE OS SCH (22:45)
[2019-03-14] MEDS: INDOMETHACIN 50 MG CAPSULE PO SCH (22:45)
[2019-03-14] MEDS: LATANOPROST 0.005% OPHTH SOLN 2.5ML BOTTLE OS SCH (22:45)
[2019-03-14] MEDS: INSULIN SLIDING SCALE (NOVOLOG) 1 VIAL SQ SCH (23:37)
[2019-03-15] MEDS ORDERED: MORPHINE SULFATE 2 MG/ML VIAL ONE ×4 (02:51→17:43)
[2019-03-15] MEDS: MORPHINE SULFATE 2 MG/ML VIAL IVPUSH PRN ×5 (02:55→22:16)
--- NOTE | 2019-03-15 06:47 | HP ---
Admitting History and Physical - Primary Care Physician PCP: Janelle Dunbar S - Admission Chief Complaint: R ankle and R knee pain History of Present Illness: 53 yo M with a hx of HTN, HLD, DM, asthma, CHF (normal EF%, poor LV compliance) , ESRD MWF with left AVF, CAD s/p CABG (2010; stent), GERD, and amputation of the left metatarsal presents to the emergency department s/p mechanical fall shortly after his dialysis treatment (per pt on the ramp exiting the dialysis center was some ice and he slipped and fell) came in with right ankle and R knee pain. Per the patient, he walked down a ramp and hyper plantar flexed his right foot and had immediate pain afterwards. His was present wioth him during the above incident and she helped him. He Denies the following prior to the fall: fever, chills, palpitations, chest pain, nausea, vomiting, lightheadedness. Currently, he is having pain on his right knee and R ankle. in ER had xrays, found to haave R ankle fracture, seen by ortho; per pt he spoke with ortho dr and they decided together to have cast rather than to operate. History Source: Patient, Medical Record Limitations to Obtaining History: No Limitations - Past Medical History Cardiovascular: Yes: CAD, CHF (normal ejection fraction; poor LV compliance; no valvular abnormalities), HTN, Hyperlipdemia Pulmonary: Yes: Asthma, Pneumonia Gastrointestinal: Yes: GERD, GI Bleed Renal/: Yes: Renal Failure, Hemodialysis (ESRD on HD MWF via L arm AVF) Heme/Onc: No: Anemia, B12 Deficiency, Bleeding Disorder, Cancer, Current Chemotherapy, Current Radiation Therapy, Hemochromatosis, Hypercoaguable State, Myeloproliferative Synd, Sickle Cell Disease, Sickle Cell Trait, Thrombocytopenia, Other Psych: Yes: Anxiety Musculoskeletal: Yes: Other (left metatarsal amputation) Rheumatology: Yes: Gout Endocrine: Yes: Diabetes Mellitus - Past Surgical History Past Surgical History: Yes: Amputation (Left Transmetatarsal), AV Fistula/Graft (LUE), CABG (05/2010), Stent (s/p cardiac cath with stent placement) - Smoking History Smoking history: Never smoked Have you smoked in the past 12 months: No Aproximately how many cigarettes per day: 2 If you are a former smoker, when did you quit?: 1989 - Alcohol/Substance Use Hx Alcohol Use: No History of Substance Use: reports: None - Social History Usual Living Arrangement: Yes: With Spouse Do you think of yourself as: Straight/Heterosexual ADL: Independent 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 History of Recent Travel: No Home Medications - Allergies Allergies/Adverse Reactions: Allergies Allergy/AdvReac Type Severity Reaction Status Date / Time No Known Drug Allergies Allergy Verified 05/13/18 06:32 - Home Medications Home Medications: Ambulatory Orders Allopurinol [Zyloprim -] 100 mg PO DAILY 05/06/18 Aspirin [ASA -] 81 mg PO DAILY 05/06/18 Atorvastatin Calcium 80 mg PO HS 05/06/18 Bimatoprost [Lumigan] 1 drop OS HS 05/06/18 Brimonidine Tartrate [Alphagan 0.15% -] 1 drop OS TID 05/06/18 Brinzolamide [Azopt] 1 drop OS TID 05/06/18 Cinacalcet HCl [Sensipar -] 30 mg PO DAILY 05/06/18 Ferrous Sulfate [Feosol] 325 mg PO DAILY 05/06/18 Furosemide [Lasix -] 80 mg PO DAILY 05/06/18 Hydralazine HCl 50 mg PO TID 05/06/18 Indomethacin [Indocin -] 50 mg PO BID 05/06/18 Insulin (LOG) Aspart [NovoLOG -] 8 units SQ TID 05/06/18 Insulin Detemir [Levemir Flextouch] 8 unit SQ HS 05/06/18 Levocetirizine Dihydrochloride 10 mg PO DAILY 05/06/18 Lisinopril [Prinivil] 5 mg PO DAILY 05/06/18 Magnesium Oxide [Magox 400] 400 mg PO TID 05/06/18 Omeprazole 20 mg PO DAILY 05/06/18 Sevelamer Carbonate [Renvela -] 2,400 mg PO CM 05/06/18 Tramadol HCl/Acetaminophen [Tramadol-Acetaminophn 37.5-325] 1 each PO BID Insulin (Levemir) [Levemir Vial] 10 units SQ DAILY@0700 units 05/07/18 Sennosides [Senna -] 2 tab PO HS PRN 30 Days #60 tablet MDD 2 05/17/18 Family Medical History Family History: Unremarkable Review of Systems - Review of Systems Constitutional: denies: Chills, Fever Eyes: denies: Blind Spots, Blurred Vision, Double Vision HENT: denies: Difficult Swallowing, Ear Pain, Epistaxis Cardiovascular: denies: Chest Pain, Shortness of Breath Respiratory: denies: Cough, SOB Gastrointestinal: denies: Abdominal Pain, Constipation, Diarrhea, Rectal Bleeding, Vomiting Genitourinary: denies: Dysuria, Flank Pain Musculoskeletal: reports: Extremity Pain (see above). denies: Back Pain Neurological: denies: Change in LOC, Change in Speech, Confusion Hematology/Lymphatic: denies: Easily Bruised, Excessive Bleeding Psychiatric: denies: Anxiety, Depression, Suicidal Physical Examination Vital Signs: Vital Signs Temperature 99.4 F 03/14/19 20:00 Pulse Rate 95 H 03/15/19 02:50 Respiratory Rate 03/14/19 22:45 Blood Pressure 141/75 03/15/19 02:50 O2 Sat by Pulse Oximetry (%) 97 03/14/19 22:45 Constitutional: Yes: No Distress, Calm Eyes: Yes: Conjunctiva Clear HENT: Yes: Atraumatic Neck: Yes: Supple Cardiovascular: Yes: Regular Rate and Rhythm Respiratory: Yes: CTA Bilaterally Gastrointestinal: Yes: Soft. No: Tenderness Renal/: No: Hematuria Musculoskeletal: Yes: Other (R ankle in cast) Extremities: No: Cold, Cool, Cyanosis Edema: No Integumentary: No: Rash, Venous Stasis Changes Neurological: Yes: WNL, Alert, Oriented ...Motor Strength: WNL Psychiatric: Yes: WNL, Alert, Oriented. No: Agitated, Suicidal Ideation Labs: CBC, BMP 03/14/19 15:46 03/14/19 15:46 Imaging - Results Chest X-ray: Report Reviewed X-ray: Report Reviewed Other: Report Reviewed Assessment/Plan 53 yo M with a hx of HTN, HLD, DM, asthma, CHF (normal EF%, poor LV compliance) , ESRD MWF with left AVF, CAD s/p CABG (2010; stent), GERD, and amputation of the left metatarsal presents to the emergency department s/p mechanical fall shortly after his dialysis treatment with right ankle and knee pain. Found to have R anjkle fracture, cast placed per ortho - pt will need SNF in a [place] with HD (pt lives home with his but she also had some recent health issues and can not take care oif him and his HD) pain meds; DVT pfx; d/w pt and staff
[2019-03-15] MEDS ORDERED: MAGNESIUM OXIDE 400 MG TABLET (FP) ONE (06:56)
[2019-03-15] MEDS ORDERED: hydrALAZINE HCL 25 MG TABLET (FP) ONE (06:56)
[2019-03-15] MEDS: BRIMONIDINE TARTRATE 0.15% OPHTHALMIC 5 ML BOTTLE OS SCH ×3 (07:09→22:15)
[2019-03-15] MEDS: hydrALAZINE HCL 50 MG TABLET (FP) PO SCH ×3 (07:09→22:15)
[2019-03-15] MEDS: MAGNESIUM OXIDE 400 MG TABLET (FP) PO SCH ×3 (07:09→22:15)
[2019-03-15] MEDS: INSULIN (LEVEMIR) 100 UNITS/ML UNITS SQ SCH ×2 (07:13→21:45)
[2019-03-15] MEDS: INSULIN SLIDING SCALE (NOVOLOG) 1 VIAL SQ SCH ×4 (07:13→21:43)
[2019-03-15] MEDS: DORZOLAMIDE 2% HCL OPHTHALMIC SOLUTION 10 ML BOTTLE OS SCH ×2 (10:27→23:13)
[2019-03-15] MEDS: FERROUS SO4 325 MG TABLET (FP) PO SCH (10:30)
[2019-03-15] MEDS: SEVELAMER CARBONATE 800 MG TAB (FP) PO SCH ×2 (10:30→14:00)
[2019-03-15] MEDS: ASPIRIN 81 MG CHEWABLE TABLETS PO SCH (10:30)
[2019-03-15] MEDS: LORATADINE 10 MG TABLET PO SCH (10:30)
[2019-03-15] MEDS: FUROSEMIDE 40 MG TABLET (FP) PO SCH (10:31)
[2019-03-15] MEDS: INDOMETHACIN 50 MG CAPSULE PO SCH ×2 (10:31→23:13)
[2019-03-15] MEDS: ALLOPURINOL 100 MG TABLET (FP) PO SCH (10:32)
[2019-03-15] MEDS: CINACALCET HCL 30 MG TAB (FP) PO SCH (11:25)
--- NOTE | 2019-03-15 11:29 | EKG ---
Test Reason : Blood Pressure : / mmHG Vent. Rate : 103 BPM Atrial Rate : 103 BPM P-R Int : 182 ms QRS Dur : 088 ms QT Int : 370 ms P-R-T Axes : 063 010 099 degrees QTc Int : 484 ms SINUS TACHYCARDIA SEPTAL INFARCT (CITED ON OR BEFORE 13-DEC-2009) ABNORMAL ECG WHEN COMPARED WITH ECG OF 05-OCT-2018 18:41, NO SIGNIFICANT CHANGE WAS FOUND Confirmed by Isaac Hare MD ([id number]) on 03/15/2019 11:29:15 AM Referred By: Confirmed By:Isaac Hare MD
[2019-03-15] MEDS: LISINOPRIL 5 MG TABLET (FP) PO SCH (11:59)
--- NOTE | 2019-03-15 14:08 | CONSULT ---
Consult - text type - Consultation Consultation Note: Renal consult for ESRD on HD This is a 53 year old gentleman with history of ESRD on HD (MWF), CAD s /p CABG, CHF, hypertension, HLD, DM who presented with mechanical fall s/p dialysis and found to have tibial fracture. Pt last had dialysis yesterday. He reports that his pain is controlled with medications. He denies any head trauma , bleeding. Denies any CP, SOB, Abd pain, fever or chills. Has no leg swelling. PMHx: as above Allergies: NKDA Family Hx: NC Social Hx: No T/A/D ROS: as per HPI, all other pertinent ros negative Home Medications Medication Instructions Recorded Allopurinol [Zyloprim -] 100 mg PO DAILY 05/06/18 Aspirin [ASA -] 81 mg PO DAILY 05/06/18 Atorvastatin Calcium 80 mg PO HS 05/06/18 Bimatoprost [Lumigan] 1 drop OS HS 05/06/18 Brimonidine Tartrate [Alphagan 1 drop OS TID 05/06/18 0.15% -] Brinzolamide [Azopt] 1 drop OS TID 05/06/18 Cinacalcet HCl [Sensipar -] 30 mg PO DAILY 05/06/18 Ferrous Sulfate [Feosol] 325 mg PO DAILY 05/06/18 Furosemide [Lasix -] 80 mg PO DAILY 05/06/18 Hydralazine HCl 50 mg PO TID 05/06/18 Indomethacin [Indocin -] 50 mg PO BID 05/06/18 Insulin (LOG) Aspart [NovoLOG -] 8 units SQ TID 05/06/18 Insulin Detemir [Levemir Flextouch] 8 unit SQ HS 05/06/18 Levocetirizine Dihydrochloride 10 mg PO DAILY 05/06/18 Lisinopril [Prinivil] 5 mg PO DAILY 05/06/18 Magnesium Oxide [Magox 400] 400 mg PO TID 05/06/18 Omeprazole 20 mg PO DAILY 05/06/18 Sevelamer Carbonate [Renvela -] 2,400 mg PO CM 05/06/18 Tramadol HCl/Acetaminophen 1 each PO BID 05/06/18 [Tramadol-Acetaminophn 37.5-325] Insulin (Levemir) [Levemir Vial] 10 units SQ DAILY@0700 units 05/07/18 Sennosides [Senna -] 2 tab PO HS PRN 30 Days #60 tablet 05/17/18 MDD 2 Vital Signs Temperature 99.2 F 03/15/19 13:01 Pulse Rate 94 H 03/15/19 13:01 Respiratory Rate 20 03/15/19 13:01 Blood Pressure 100/56 L 03/15/19 13:01 O2 Sat by Pulse Oximetry (%) 100 03/15/19 07:50 Intake & Output 03/12/19 03/13/19 03/14/19 03/15/19 23:59 23:59 23:59 23:59 Weight 99.79 kg NAD awake and alert neck supple RRR, no M/R CTA, no rales or wheeze soft, obese, NT/ND no LE edema left arm AVF Right leg in cast CBC, BMP 03/14/19 15:46 03/14/19 15:46 Current Medications Acetaminophen (Tylenol -) 650 mg PO Q6H PRN PRN Reason: PAIN LEVEL 1-5 Last Admin: 03/14/19 22:45 Dose: 650 mg Allopurinol (Zyloprim -) 100 mg PO DAILY [facility] Last Admin: 03/15/19 10:32 Dose: 100 mg Aspirin (Asa -) 81 mg PO DAILY [facility] Last Admin: 03/15/19 10:30 Dose: 81 mg Atorvastatin Calcium (Lipitor -) 80 mg PO HS [facility] Last Admin: 03/14/19 22:45 Dose: 80 mg Brimonidine Tartrate (Alphagan 0.15% -) 1 drop OS TID [facility] Last Admin: 03/15/19 07:09 Dose: 1 drop Cinacalcet (Sensipar -) 30 mg PO DAILY [facility] Dorzolamide HCl (Trusopt 2%) 1 drop OS TID [facility] Last Admin: 03/15/19 10:27 Dose: Not Given Ferrous Sulfate (Feosol -) 325 mg PO DAILY [facility] Last Admin: 03/15/19 10:30 Dose: 325 mg Furosemide (Lasix -) 80 mg PO DAILY [facility] Last Admin: 03/15/19 10:31 Dose: 80 mg Hydralazine HCl (Apresoline -) 50 mg PO TID [facility] Last Admin: 03/15/19 07:09 Dose: 50 mg Indomethacin (Indocin -) 50 mg PO BID [facility] Last Admin: 03/15/19 10:31 Dose: 50 mg Insulin Aspart (Novolog Vial Sliding Scale -) 1 vial SQ ACHS [facility]; Protocol Last Admin: 03/15/19 11:59 Dose: 4 unit Insulin Detemir (Levemir Vial) 10 units SQ DAILY@0700 [facility] Last Admin: 03/15/19 07:13 Dose: Not Given Insulin Detemir (Levemir Vial) 8 units SQ [facility] Last Admin: 03/14/19 22:45 Dose: 8 unit Latanoprost (Xalatan 0.005% Eye Drops -) 1 drop OS HS [facility] Last Admin: 03/14/19 22:45 Dose: 1 drop Lisinopril (Prinivil) 5 mg PO DAILY [facility] Last Admin: 03/15/19 11:59 Dose: 5 mg Loratadine (Claritin -) 10 mg PO DAILY [facility] Last Admin: 03/15/19 10:30 Dose: 10 mg Magnesium Oxide (Mag-Ox -) 400 mg PO TID [facility] Last Admin: 03/15/19 07:09 Dose: 400 mg Morphine Sulfate (Morphine Sulfate) 2 mg IVPUSH Q3H PRN PRN Reason: PAIN LEVEL 4 - 6 Last Admin: 03/15/19 11:25 Dose: 2 mg Senna (Senna -) 2 tab PO HS PRN PRN Reason: CONSTIPATION Sevelamer Carbonate (Renvela -) 2,400 mg PO CM [facility] Last Admin: 03/15/19 10:30 Dose: 2,400 mg 53 year old gentleman with history of ESRD on HD (MWF), CAD s/p CABG, CHF, hypertension, HLD, DM who presented with mechanical fall s/p dialysis and found to have tibial fracture. 1. Mechanical fall with tibial fracture 2. ESRD on HD 3. CAD/CHF 4. DM 6. HLD 7. CKD related anemia r/o bleed 8. Renal Osteodystrophy 9. Hypertension Continue management of fracture as per orthopedics Pain control w/o NSAIDs No acute need for dialysis today. Next planned tx is tomorrow. Renal diet, 1.2L fluid restriction Continue Lisinopril, Lasix 40mg daily Continue DAVON with HD for anemia, check iron studies Continue Renvela with meals for hyperphosphatemia Thank you Antwan Hurley DO
[2019-03-15] MEDS: LATANOPROST 0.005% OPHTH SOLN 2.5ML BOTTLE OS SCH (22:14)
[2019-03-15] MEDS: BACITRACIN 15 GM TUBE TOPICAL OINTMENT TP SCH (22:15)
[2019-03-15] MEDS: ATORVASTATIN CA 80 MG TABLET (FP) PO SCH (22:15)
[2019-03-16] MEDS: MORPHINE SULFATE 2 MG/ML VIAL IVPUSH PRN ×3 (01:53→19:34)
[2019-03-16] MEDS: MAGNESIUM OXIDE 400 MG TABLET (FP) PO SCH ×3 (06:13→21:25)
[2019-03-16] MEDS: BRIMONIDINE TARTRATE 0.15% OPHTHALMIC 5 ML BOTTLE OS SCH ×3 (06:13→21:26)
[2019-03-16] MEDS: hydrALAZINE HCL 50 MG TABLET (FP) PO SCH ×3 (06:13→21:25)
[2019-03-16] MEDS: DORZOLAMIDE 2% HCL OPHTHALMIC SOLUTION 10 ML BOTTLE OS SCH ×5 (06:19→21:44)
[2019-03-16] MEDS: INSULIN SLIDING SCALE (NOVOLOG) 1 VIAL SQ SCH ×4 (07:09→21:25)
[2019-03-16] MEDS: INSULIN (LEVEMIR) 100 UNITS/ML UNITS SQ SCH ×2 (07:11→21:25)
[2019-03-16] MEDS ORDERED: PNEUMOC 13-VAL CONJ-DIP CRM/PF 0.5 ML DISP.SYRIN IM ONE (09:00)
[2019-03-16] MEDS ORDERED: SODIUM CHLORIDE 250 ML IV PRN (09:37)
[2019-03-16] MEDS ORDERED: EPOETIN ALFA 2,000 UNIT/1 ML VIAL IVPUSH ONE (09:45)
[2019-03-16 09:46] LABS: HEMOGLOBIN 8.7 GM/dL (11.7-16.9); MCH 31.1 pg (25.7-33.7); MCHC 32.4 g/dl (32.0-35.9); MEAN CELL VOLUME 96.1 fl (80-96); MEAN PLT VOLUME 8.3 fl (7.5-11.1); PLATELET COUNT 199 K/MM3 (134-434); RBC 2.81 M/mm3 (4.00-5.60); RDW 15.8 % (11.9-15.9); WHITE BLOOD COUNT 7.2 K/mm3 (4.0-10.0)
--- NOTE | 2019-03-16 10:05 | PN ---
Progress Note, Physician Chief Complaint: in bed awake alert NAD VSS afebrile no new c/o; sopme pain R ankle but better than yesterday; cast in place; no other c/o; for HD today - Current Medication List Current Medications: Active Medications Acetaminophen (Tylenol -) 650 mg PO Q6H PRN PRN Reason: PAIN LEVEL 1-5 Last Admin: 03/14/19 22:45 Dose: 650 mg Allopurinol (Zyloprim -) 100 mg PO DAILY [facility] Last Admin: 03/15/19 10:32 Dose: 100 mg Aspirin (Asa -) 81 mg PO DAILY [facility] Last Admin: 03/15/19 10:30 Dose: 81 mg Atorvastatin Calcium (Lipitor -) 80 mg PO HS [facility] Last Admin: 03/15/19 22:15 Dose: 80 mg Bacitracin (Bacitracin -) 1 applic TP Q2D [facility] Last Admin: 03/15/19 22:15 Dose: 1 applic Brimonidine Tartrate (Alphagan 0.15% -) 1 drop OS TID [facility] Last Admin: 03/16/19 06:13 Dose: 1 drop Cinacalcet (Sensipar -) 30 mg PO DAILY [facility] Last Admin: 03/15/19 11:25 Dose: 30 mg Dorzolamide HCl (Trusopt 2%) 1 drop OS TID [facility] Last Admin: 03/16/19 06:19 Dose: Not Given Ferrous Sulfate (Feosol -) 325 mg PO DAILY [facility] Last Admin: 03/15/19 10:30 Dose: 325 mg Furosemide (Lasix -) 80 mg PO DAILY [facility] Last Admin: 03/15/19 10:31 Dose: 80 mg Heparin Sodium (Porcine) (Heparin -) 5,000 unit SQ BID [facility] Hydralazine HCl (Apresoline -) 50 mg PO TID [facility] Last Admin: 03/16/19 06:13 Dose: Not Given Indomethacin (Indocin -) 50 mg PO BID [facility] Last Admin: 03/15/19 23:13 Dose: 50 mg Insulin Aspart (Novolog Vial Sliding Scale -) 1 vial SQ [facility]; Protocol Last Admin: 03/16/19 07:09 Dose: 2 unit Insulin Detemir (Levemir Vial) 10 units SQ DAILY@0700 [facility] Last Admin: 03/16/19 07:11 Dose: 10 units Insulin Detemir (Levemir Vial) 8 units SQ HS [facility] Last Admin: 03/15/19 21:45 Dose: 8 unit Latanoprost (Xalatan 0.005% Eye Drops -) 1 drop OS HS [facility] Last Admin: 03/15/19 22:14 Dose: 1 drop Lisinopril (Prinivil) 5 mg PO DAILY [facility] Last Admin: 03/15/19 11:59 Dose: 5 mg Loratadine (Claritin -) 10 mg PO DAILY [facility] Last Admin: 03/15/19 10:30 Dose: 10 mg Magnesium Oxide (Mag-Ox -) 400 mg PO TID [facility] Last Admin: 03/16/19 06:13 Dose: 400 mg Morphine Sulfate (Morphine Sulfate) 2 mg IVPUSH Q3H PRN PRN Reason: PAIN LEVEL 4 - 6 Last Admin: 03/16/19 01:53 Dose: 2 mg Senna (Senna -) 2 tab PO HS PRN PRN Reason: CONSTIPATION Sevelamer Carbonate (Renvela -) 2,400 mg PO CM [facility] Last Admin: 03/15/19 14:00 Dose: 2,400 mg - Objective Vital Signs: Vital Signs Temperature 98.5 F 03/16/19 09:00 Pulse Rate 82 03/16/19 09:15 Respiratory Rate 18 03/16/19 09:15 Blood Pressure 112/58 L 03/16/19 09:15 O2 Sat by Pulse Oximetry (%) 96 03/15/19 21:00 Constitutional: Yes: No Distress Eyes: Yes: Conjunctiva Clear HENT: Yes: Atraumatic Neck: Yes: Supple Cardiovascular: Yes: Regular Rate and Rhythm Respiratory: Yes: CTA Bilaterally Gastrointestinal: Yes: Soft. No: Tenderness Genitourinary: No: Hematuria Musculoskeletal: No: Joint Stiffness, Joint Swelling Extremities: No: Cold, Cool, Cyanosis Edema: No Integumentary: No: Rash, Venous Stasis Changes Neurological: Yes: WNL, Alert, Oriented ...Motor Strength: WNL Psychiatric: Yes: WNL, Alert, Oriented. No: Agitated, Suicidal Ideation Labs: INR, PTT INR 1.09 (0.83-1.09) 03/14/19 15:46 - ....Imaging X-ray: Report Reviewed Other: Report Reviewed Assessment/Plan 53 yo M with a hx of HTN, HLD, DM, asthma, CHF (normal EF%, poor LV compliance) , ESRD MWF with left AVF, CAD s/p CABG (2010; stent), GERD, and amputation of the left metatarsal presents to the emergency department s/p mechanical fall shortly after his dialysis treatment with right ankle and knee pain. Found to have R ankle fracture, cast placed per ortho - pt will need SNF in a NH with HD (pt lives home with his but she also had some recent health issues and can not take care oif him and his HD) pain meds; DVT pfx; d/w pt and staff
[2019-03-16 10:14] LABS: BLOOD UREA NITROGEN 76.4 mg/dL (7-18); PHOSPHOROUS 8.7 mg/dL (2.5-4.9); POTASSIUM 5.5 mmol/L (3.5-5.1)
[2019-03-16 10:42] LABS: CREATININE 10.4 mg/dL (0.55-1.3)
[2019-03-16] MEDS: SEVELAMER CARBONATE 800 MG TAB (FP) PO SCH ×3 (12:54→19:00)
[2019-03-16] MEDS: LORATADINE 10 MG TABLET PO SCH (12:55)
[2019-03-16] MEDS: HEPARIN NA (PORCINE) 5,000 UNITS/ML 1ML VIAL SQ SCH ×2 (12:55→21:31)
[2019-03-16] MEDS: ASPIRIN 81 MG CHEWABLE TABLETS PO SCH (12:55)
[2019-03-16] MEDS: FERROUS SO4 325 MG TABLET (FP) PO SCH (12:55)
[2019-03-16] MEDS: CINACALCET HCL 30 MG TAB (FP) PO SCH (12:56)
[2019-03-16] MEDS: INDOMETHACIN 50 MG CAPSULE PO SCH ×2 (12:56→21:25)
[2019-03-16] MEDS: LISINOPRIL 5 MG TABLET (FP) PO SCH (12:56)
[2019-03-16] MEDS: FUROSEMIDE 40 MG TABLET (FP) PO SCH (12:56)
[2019-03-16] MEDS: ALLOPURINOL 100 MG TABLET (FP) PO SCH (12:57)
[2019-03-16] MEDS ORDERED: PT OWN MED DRAWER 7, Y5N ONE ×4 (13:05→21:22)
--- NOTE | 2019-03-16 16:34 | PN ---
Progress Note (short form) - Note Progress Note: Renal follow up for ESRD on HD Seen and examined while on dialysis earlier today has mild pain in his leg BP stable, UF gaol ~2.5L access with good flow and function Vital Signs Temperature 101.9 F H 03/16/19 15:48 Pulse Rate 117 H 03/16/19 15:48 Respiratory Rate 03/16/19 15:48 Blood Pressure 140/75 03/16/19 15:48 O2 Sat by Pulse Oximetry (%) 96 03/15/19 21:00 Intake & Output 03/13/19 03/14/19 03/15/19 03/16/19 23:59 23:59 23:59 23:59 Intake Total 440 620 Output Total 2300 Balance 440 -1680 Weight 99.79 kg 101.831 kg 101.831 kg NAD RRR, no M/R CTA, no rales or wheeze soft, obese, NT/ND no LE edema left arm AVF Right leg in cast CBC, BMP 03/16/19 09:15 03/16/19 09:15 Current Medications Acetaminophen (Tylenol -) 650 mg PO Q6H PRN PRN Reason: FEVER OR PAIN LEVEL 1-5 Allopurinol (Zyloprim -) 100 mg PO DAILY [facility] Last Admin: 03/16/19 12:57 Dose: Not Given Aspirin (Asa -) 81 mg PO DAILY [facility] Last Admin: 03/16/19 12:55 Dose: Not Given Atorvastatin Calcium (Lipitor -) 80 mg PO HS [facility] Last Admin: 03/15/19 22:15 Dose: 80 mg Bacitracin (Bacitracin -) 1 applic TP Q2D [facility] Last Admin: 03/15/19 22:15 Dose: 1 applic Brimonidine Tartrate (Alphagan 0.15% -) 1 drop OS TID [facility] Last Admin: 03/16/19 15:11 Dose: 1 drop Cinacalcet (Sensipar -) 30 mg PO DAILY [facility] Last Admin: 03/16/19 12:56 Dose: Not Given Dorzolamide HCl (Trusopt 2%) 1 drop OS TID [facility] Last Admin: 03/16/19 12:58 Dose: Not Given Ferrous Sulfate (Feosol -) 325 mg PO DAILY [facility] Last Admin: 03/16/19 12:55 Dose: Not Given Furosemide (Lasix -) 80 mg PO DAILY [facility] Last Admin: 03/16/19 12:56 Dose: Not Given Heparin Sodium (Porcine) (Heparin -) 5,000 unit SQ BID [facility] Last Admin: 03/16/19 12:55 Dose: Not Given Hydralazine HCl (Apresoline -) 50 mg PO TID [facility] Last Admin: 03/16/19 15:28 Dose: 50 mg Indomethacin (Indocin -) 50 mg PO BID [facility] Last Admin: 03/16/19 12:56 Dose: Not Given Insulin Aspart (Novolog Vial Sliding Scale -) 1 vial SQ [facility]; Protocol Last Admin: 03/16/19 12:57 Dose: Not Given Insulin Detemir (Levemir Vial) 10 units SQ DAILY@0700 [facility] Last Admin: 03/16/19 07:11 Dose: 10 units Insulin Detemir (Levemir Vial) 8 units SQ HS [facility] Last Admin: 03/15/19 21:45 Dose: 8 unit Latanoprost (Xalatan 0.005% Eye Drops -) 1 drop OS [facility] Last Admin: 03/15/19 22:14 Dose: 1 drop Lisinopril (Prinivil) 5 mg PO DAILY [facility] Last Admin: 03/16/19 12:56 Dose: Not Given Loratadine (Claritin -) 10 mg PO DAILY [facility] Last Admin: 03/16/19 12:55 Dose: Not Given Magnesium Oxide (Mag-Ox -) 400 mg PO TID [facility] Last Admin: 03/16/19 15:28 Dose: 400 mg Morphine Sulfate (Morphine Sulfate) 2 mg IVPUSH Q3H PRN PRN Reason: PAIN LEVEL 4 - 6 Last Admin: 03/16/19 15:26 Dose: 2 mg Senna (Senna -) 2 tab PO HS PRN PRN Reason: CONSTIPATION Sevelamer Carbonate (Renvela -) 2,400 mg PO CM [facility] Last Admin: 03/16/19 12:55 Dose: Not Given 53 year old gentleman with history of ESRD on HD (MWF), CAD s/p CABG, CHF, hypertension, HLD, DM who presented with mechanical fall s/p dialysis and found to have tibial fracture. 1. Mechanical fall with tibial fracture 2. ESRD on HD 3. CAD/CHF 4. DM 6. HLD 7. CKD related anemia r/o bleed 8. Renal Osteodystrophy 9. Hypertension Tolerated dialysis with UF today, next planned treatment is Thursday Renal diet, 1.2L fluid restriction Continue Lisinopril, Lasix 40mg daily Continue DAVON with HD for anemia Continue Renvela with meals for hyperphosphatemia and senspiar for secondary hyperparathyrodism Orthopedics follow up pain control Thank you Antwan Hurley DO
[2019-03-16] MEDS: ACETAMINOPHEN 325 MG TABLET (FP) PO PRN (16:37)
--- NOTE | 2019-03-16 17:02 | PN ---
Progress Note (short form) - Note Progress Note: ID consult dictated 53 yo man history of DM, s/p cabg 2010, started HD 2012, history of left TMA 2009, also has stents history of MRSA right avf 2018 now admitted s/p fall with fracture of right tib/fib 03/14 after d/w ortho he was placed in a long leg cast today he developed chills at HD found to have fever 101.9 on arrival to floor no complaints tolerating dialysis via left AVG no sob, no GI symptoms anuric no chest pain or abdominal pain fever s/p leg fracture esrd/hd history of MRSA stat blood cultures cxray r/o pneumonia- doubt vancomycin and zosyn (empiric) mrsa contact isolation Problem List - Problems (1) Fever Code(s): R50.9 - FEVER, UNSPECIFIED (2) Fracture, tibia and fibula Code(s): S82.209A - UNSP FRACTURE OF SHAFT OF UNSP TIBIA, INIT FOR CLOS FX; S82.409A - UNSP FRACTURE OF SHAFT OF UNSP FIBULA, INIT FOR CLOS FX (3) ESRD on hemodialysis Code(s): N18.6 - END STAGE RENAL DISEASE; Z99.2 - DEPENDENCE ON RENAL DIALYSIS (4) MRSA (methicillin resistant staph aureus) culture positive Code(s): Z22.322 - CARRIER OR SUSPECTED CARRIER OF METHICILLIN RESIS STAPH
[2019-03-16] MEDS ORDERED: VANCOMYCIN HCL 1,250 MG in DEXTROSE 5%-WATER - 250 ML IVPB ONE (17:30)
--- NOTE | 2019-03-16 19:05 | CONS ---
DATE OF CONSULTATION: DATE OF DICTATION: 03/16/2019 INFECTIOUS DISEASE CONSULTATION REQUESTING PHYSICIAN: Paulo Dunbar MD. CONSULTING PHYSICIAN: Trudy Hemphill MD. HISTORY OF PRESENT ILLNESS: This is a 53-year-old man with a history of end- stage renal disease on dialysis, longstanding diabetes and coronary artery disease. He was admitted on the after he sustained a fall to his right knee and ankle after dialysis. He came to the ER, was found to have a fracture of his distal fibula and tibia for comminuted fractures. He was evaluated by Orthopedics, and the decision was made to put a long cast on his leg, which he has had since March 14. He reports improvement in his pain. This afternoon during hemodialysis, he developed acute onset of chills, and when he came to the floor, he had a fever of 101.9. I am asked to see him for further evaluation. He denies any problems with his access. His last episode of issues with the access was in April 2018 when he had had bleeding from his right upper AV fistula, and he is now being dialyzed by a left-sided AV graft. He denies any issues with dialysis at all. He has no cough. He has no diarrhea. He has no vomiting. He has no abdominal pain or chest pain. Besides the chills, he feels well. His leg pain is improved. PAST MEDICAL HISTORY: Notable for end-stage renal disease, coronary artery disease, ND, congestive heart failure, hypertension, hyperlipidemia, and GERD. He is status post coronary artery bypass, right upper extremity AV fistula. He no longer has a PermCath. Left upper extremity AV graft, and he has is status post a left TMA. He has been diabetic for years. He has been on dialysis since 2012, CABG 2010. He has had stents placed subsequently, and the TMA was in 2009. He does have a history of MRSA, both of the TMA stump as well as he has had an infected fistula in the past with MRSA. FAMILY HISTORY: Noncontributory. SOCIAL HISTORY: He is . He is not a drinker or smoker. No history of any substance use. MEDICATION: His medications are notable for tramadol, Renvela, senna, omeprazole, Mag-Ox, Prinivil, insulin, Indocin, hydralazine, Lasix, Sensipar, Alphagan Lumigan, atorvastatin, aspirin, and allopurinol. REVIEW OF SYSTEMS: As per HPI. He received the influenza vaccine, and he has no symptoms of cough at this time or shortness of breath. PHYSICAL EXAMINATION: General: He is a pleasant man in no acute distress. Vital Signs: Temperature is 101.9, pulse 117, blood pressure 140/75, his respiratory rate is 20, he is resting comfortably. HEENT: Normocephalic. Eyes are anicteric. He has got a cloudy cornea on the left eye. His dentition is poor. Neck: Supple. Lungs: Clear to auscultation. Heart: Regular rate and rhythm. Abdomen: Soft, nontender. Extremities: Left TMA site: he has got a small shallow plantar ulcer which he reports he gets a little serous drainage, and his right foot is in a cast. He is able to wiggle his toes, and there is ample space. There is no evidence of swelling. LABORATORY: Notable for a white count of 7.2 this morning, hemoglobin 11.7, platelets of 199. BUN and creatinine are 76 and 10, and blood cultures have not been sent yet. IMPRESSION: In summary, this is a 53-year-old man with a history of diabetes, end-stage renal disease, prior methicillin-resistant Staphylococcus aureus infection status post fracture of his leg, of his right tibia-fibula, who now has new onset of fevers during dialysis, concerns would include recurrent methicillin-resistant Staphylococcus aureus infection. Would obtain stat blood cultures, chest x-ray , rule out pneumonia which I doubt as he has no cough or shortness of breath. In that same setting I doubt influenza as well. I would treat him empirically with vancomycin and Zosyn and would continue methicillin-resistant Staphylococcus aureus contact isolation. I have ordered a complete blood count for the morning. TRUDY HEMPHILL M.D. [id number] KIARA
[2019-03-16] MEDS ORDERED: DEXTROSE 5%-WATER - 50 ML IVPB ONE (20:15)
[2019-03-16] MEDS ORDERED: PIPERACILLIN/TAZOBACTAM 2.25 GM VIAL IVPB ONE (20:15)
[2019-03-16] MEDS: PIPERACILLIN/TAZOB 2.25 GM 2.25 GM in DEXTROSE 5%-WATER - 50 ML IVPB SCH (20:23)
[2019-03-16] MEDS: ATORVASTATIN CA 80 MG TABLET (FP) PO SCH (21:25)
[2019-03-16] MEDS: LATANOPROST 0.005% OPHTH SOLN 2.5ML BOTTLE OS SCH (21:34)
[2019-03-17] MEDS ORDERED: DEXTROSE 5%-WATER - 50 ML IVPB ONE ×3 (00:41→17:22)
[2019-03-17] MEDS ORDERED: PIPERACILLIN/TAZOBACTAM 2.25 GM VIAL IVPB ONE ×3 (00:41→17:22)
[2019-03-17] MEDS: PIPERACILLIN/TAZOB 2.25 GM 2.25 GM in DEXTROSE 5%-WATER - 50 ML IVPB SCH ×3 (01:04→17:29)
[2019-03-17] MEDS: MORPHINE SULFATE 2 MG/ML VIAL IVPUSH PRN ×3 (02:30→22:43)
[2019-03-17] MEDS: MAGNESIUM OXIDE 400 MG TABLET (FP) PO SCH ×3 (05:14→21:25)
[2019-03-17] MEDS: hydrALAZINE HCL 50 MG TABLET (FP) PO SCH ×3 (05:14→21:25)
[2019-03-17] MEDS: BRIMONIDINE TARTRATE 0.15% OPHTHALMIC 5 ML BOTTLE OS SCH ×3 (05:15→21:28)
[2019-03-17] MEDS: DORZOLAMIDE 2% HCL OPHTHALMIC SOLUTION 10 ML BOTTLE OS SCH ×3 (05:35→21:27)
[2019-03-17] MEDS: INSULIN SLIDING SCALE (NOVOLOG) 1 VIAL SQ SCH ×4 (06:37→21:26)
[2019-03-17] MEDS: INSULIN (LEVEMIR) 100 UNITS/ML UNITS SQ SCH ×2 (06:37→21:25)
--- NOTE | 2019-03-17 07:26 | PN ---
Progress Note, Physician Chief Complaint: in bed NAD VSS no new c/o but had 101 fever episode; ID called IV ATB per ID; leg pain much better - Current Medication List Current Medications: Active Medications Acetaminophen (Tylenol -) 650 mg PO Q6H PRN PRN Reason: FEVER OR PAIN LEVEL 1-5 Last Admin: 03/16/19 16:37 Dose: 650 mg Allopurinol (Zyloprim -) 100 mg PO DAILY [facility] Last Admin: 03/16/19 12:57 Dose: Not Given Aspirin (Asa -) 81 mg PO DAILY [facility] Last Admin: 03/16/19 12:55 Dose: Not Given Atorvastatin Calcium (Lipitor -) 80 mg PO HS [facility] Last Admin: 03/16/19 21:25 Dose: 80 mg Bacitracin (Bacitracin -) 1 applic TP Q2D [facility] Last Admin: 03/15/19 22:15 Dose: 1 applic Brimonidine Tartrate (Alphagan 0.15% -) 1 drop OS TID [facility] Last Admin: 03/17/19 05:15 Dose: 1 drop Cinacalcet (Sensipar -) 30 mg PO DAILY [facility] Last Admin: 03/16/19 12:56 Dose: Not Given Dorzolamide HCl (Trusopt 2%) 1 drop OS TID [facility] Last Admin: 03/17/19 05:35 Dose: 1 drop Ferrous Sulfate (Feosol -) 325 mg PO DAILY [facility] Last Admin: 03/16/19 12:55 Dose: Not Given Furosemide (Lasix -) 80 mg PO DAILY [facility] Last Admin: 03/16/19 12:56 Dose: Not Given Heparin Sodium (Porcine) (Heparin -) 5,000 unit SQ BID [facility] Last Admin: 03/16/19 21:31 Dose: 5,000 unit Hydralazine HCl (Apresoline -) 50 mg PO TID [facility] Last Admin: 03/17/19 05:14 Dose: 50 mg Piperacillin Sod/Tazobactam (Sod 2.25 gm/ Dextrose) 50 mls @ 100 mls/hr IVPB Q8H-IV [facility]; Protocol Last Admin: 03/17/19 01:04 Dose: 100 mls/hr Indomethacin (Indocin -) 50 mg PO BID [facility] Last Admin: 03/16/19 21:25 Dose: 50 mg Insulin Aspart (Novolog Vial Sliding Scale -) 1 vial SQ ACHS [facility]; Protocol Last Admin: 03/17/19 06:37 Dose: 4 unit Insulin Detemir (Levemir Vial) 10 units SQ DAILY@0700 [facility] Last Admin: 03/17/19 06:37 Dose: 10 units Insulin Detemir (Levemir Vial) 8 units SQ HS [facility] Last Admin: 03/16/19 21:25 Dose: 8 unit Latanoprost (Xalatan 0.005% Eye Drops -) 1 drop OS HS [facility] Last Admin: 03/16/19 21:34 Dose: 1 drop Lisinopril (Prinivil) 5 mg PO DAILY [facility] Last Admin: 03/16/19 12:56 Dose: Not Given Loratadine (Claritin -) 10 mg PO DAILY [facility] Last Admin: 03/16/19 12:55 Dose: Not Given Magnesium Oxide (Mag-Ox -) 400 mg PO TID [facility] Last Admin: 03/17/19 05:14 Dose: 400 mg Morphine Sulfate (Morphine Sulfate) 2 mg IVPUSH Q3H PRN PRN Reason: PAIN LEVEL 4 - 6 Last Admin: 03/17/19 02:30 Dose: 2 mg Senna (Senna -) 2 tab PO HS PRN PRN Reason: CONSTIPATION Sevelamer Carbonate (Renvela -) 2,400 mg PO [facility] Last Admin: 03/16/19 19:00 Dose: 2,400 mg - Objective Vital Signs: Vital Signs Temperature 98.6 F 03/17/19 03:00 Pulse Rate 104 H 03/17/19 05:17 Respiratory Rate 16 03/17/19 03:00 Blood Pressure 119/64 03/17/19 05:17 O2 Sat by Pulse Oximetry (%) 97 03/16/19 21:00 Constitutional: Yes: No Distress, Calm Eyes: Yes: Conjunctiva Clear HENT: Yes: Atraumatic Neck: Yes: Supple Cardiovascular: Yes: Regular Rate and Rhythm Respiratory: Yes: CTA Bilaterally Gastrointestinal: Yes: Soft. No: Tenderness Genitourinary: No: Hematuria Musculoskeletal: No: Joint Stiffness, Joint Swelling Extremities: Yes: Other (RLE In cast no edema). No: Cold, Cool Edema: No Integumentary: No: Rash, Venous Stasis Changes Neurological: Yes: Alert, Oriented ...Motor Strength: WNL Psychiatric: Yes: Alert, Oriented. No: Agitated Labs: CBC, BMP 03/16/19 09:15 03/16/19 09:15 INR, PTT INR 1.09 (0.83-1.09) 03/14/19 15:46 - ....Imaging Other: Report Reviewed Assessment/Plan 53 yo M with a hx of HTN, HLD, DM, asthma, CHF (normal EF%, poor LV compliance) , ESRD MWF with left AVF, CAD s/p CABG (2010; stent), GERD, and amputation of the left metatarsal presents to the emergency department s/p mechanical fall shortly after his dialysis treatment with right ankle and knee pain. Found to have R ankle fracture, cast placed per ortho; fever - cultures sent; ID eval; IV ATB / ID; pt will need SNF in a NH with HD when stable pain meds; DVT pfx; d/w pt and staff
[2019-03-17] MEDS: SEVELAMER CARBONATE 800 MG TAB (FP) PO SCH ×3 (08:29→17:30)
[2019-03-17 09:45] LABS: BASO % 0.7 % (0-2.0); EOS % 1.4 % (0-4.5); HEMATOCRIT 28.8 % (35.4-49); HEMOGLOBIN 9.2 GM/dL (11.7-16.9); LYMPH % 2.5 % (8-40); MCH 31.1 pg (25.7-33.7); MEAN CELL VOLUME 97.2 fl (80-96); MEAN PLT VOLUME 8.2 fl (7.5-11.1); MONO % 4.9 % (3.8-10.2); NEUT % 90.5 % (42.8-82.8); PLATELET COUNT 231 K/MM3 (134-434); RBC 2.96 M/mm3 (4.00-5.60); RDW 16.4 % (11.9-15.9); WHITE BLOOD COUNT 8.8 K/mm3 (4.0-10.0)
[2019-03-17] MEDS: FUROSEMIDE 40 MG TABLET (FP) PO SCH (14:11)
[2019-03-17] MEDS: HEPARIN NA (PORCINE) 5,000 UNITS/ML 1ML VIAL SQ SCH ×2 (14:12→21:25)
[2019-03-17] MEDS: BACITRACIN 15 GM TUBE TOPICAL OINTMENT TP SCH (14:12)
[2019-03-17] MEDS: FERROUS SO4 325 MG TABLET (FP) PO SCH (14:12)
[2019-03-17] MEDS: ASPIRIN 81 MG CHEWABLE TABLETS PO SCH (14:12)
[2019-03-17] MEDS: LORATADINE 10 MG TABLET PO SCH (14:12)
[2019-03-17] MEDS: INDOMETHACIN 50 MG CAPSULE PO SCH ×2 (14:12→21:25)
[2019-03-17] MEDS: ALLOPURINOL 100 MG TABLET (FP) PO SCH (14:13)
[2019-03-17] MEDS: LISINOPRIL 5 MG TABLET (FP) PO SCH (14:13)
[2019-03-17] MEDS: CINACALCET HCL 30 MG TAB (FP) PO SCH (14:13)
--- NOTE | 2019-03-17 15:29 | PN ---
Progress Note (short form) - Note Progress Note: no further fever or chills no cough or sob chest ct with stable chronic effusion, ?pleural based mass Vital Signs Period Temp Pulse Resp BP Sys/Henao Pulse Ox Last 24 Hr 98.5 F-100.7 F 96-110 16-20 97-130/54-70 97-97 cor-rrr lungs decreased bs at bases abd soft,nt ext left arm avg no erythema no tenderness rRLE cast in place CBC, BMP 03/17/19 08:30 03/16/19 09:15 cultures pending a/p fever s/p leg fracture esrd/hd history of MRSA stat blood cultures-awaiting culture results vancomycin and zosyn (empiric) mrsa contact isolation abnl chest ct- pulmonary to evaluate
[2019-03-17] MEDS ORDERED: PT OWN MED DRAWER 7, Y5N ONE (20:51)
[2019-03-17] MEDS: ATORVASTATIN CA 80 MG TABLET (FP) PO SCH (21:25)
[2019-03-17] MEDS: LATANOPROST 0.005% OPHTH SOLN 2.5ML BOTTLE OS SCH (21:28)
[2019-03-18] MEDS ORDERED: PIPERACILLIN/TAZOBACTAM 2.25 GM VIAL IVPB ONE (01:47)
[2019-03-18] MEDS ORDERED: DEXTROSE 5%-WATER - 50 ML IVPB ONE (01:47)
[2019-03-18] MEDS: PIPERACILLIN/TAZOB 2.25 GM 2.25 GM in DEXTROSE 5%-WATER - 50 ML IVPB SCH (01:58)
[2019-03-18] MEDS ORDERED: MAG HYDROX/AL HYDROX/SIMETH 30 ML UNIT-DOSE CUP PO ONE (03:17)
--- NOTE | 2019-03-18 04:06 | PN ---
Progress Note (short form) - Note Progress Note: Called to evaluate patient's chest pain after primary was not reached by phone x3. EKG that was performed was noted NSR, q waves in V1, V2, no ST segment changes, Qtc 487, no gross changes from previous EKG. Previously had sinus tachycardia. Troponin 0.03 at 20:20. Patient was seen and examined at the bedside. Noted that his pain was located in the epigastric region and felt like a burning /warm type pain. Endorsed nausea and one episode of NBNB vomiting. No radiation of the pain into the upper chest, neck, shoulder, back. Denied shortness of breath. PE: General: awake and alert, answering questions appropriately. Noted L eye opacity. Cardiac: RRR, no murmurs appreciated Lungs: clear to auscultation, decreased breath sounds at the bases Abdomen: tender in the epigastric region on palpation, with no radiation. Normoactive bowel sounds. Neuro: moving all limbs spontaneous. Assessment: Low suspicion for ACS, likely more GERD like pain Plan: Ordered Mylanta with good effect. Avoid QT prolonging agents for nausea. Cardiac enzymes ordered for the morning for follow up. Endorsed to nursing to contact PCP for sign out of nightly events. UPDATE Patient had large bowel movement and noted that his chest pain subsided completely. Had one episode of NBNB emesis. Obtain morning cardiac enzymes and nursing to sign out to PCP.
[2019-03-18] MEDS: DORZOLAMIDE 2% HCL OPHTHALMIC SOLUTION 10 ML BOTTLE OS SCH ×3 (06:28→21:22)
[2019-03-18] MEDS: MAGNESIUM OXIDE 400 MG TABLET (FP) PO SCH ×3 (06:28→21:18)
[2019-03-18] MEDS: hydrALAZINE HCL 50 MG TABLET (FP) PO SCH ×3 (06:28→21:17)
[2019-03-18] MEDS: BRIMONIDINE TARTRATE 0.15% OPHTHALMIC 5 ML BOTTLE OS SCH ×3 (06:28→21:11)
[2019-03-18] MEDS: INSULIN (LEVEMIR) 100 UNITS/ML UNITS SQ SCH ×2 (06:29→21:11)
[2019-03-18] MEDS: INSULIN SLIDING SCALE (NOVOLOG) 1 VIAL SQ SCH ×4 (06:30→21:14)
[2019-03-18] MEDS: SEVELAMER CARBONATE 800 MG TAB (FP) PO SCH ×3 (08:19→17:05)
--- NOTE | 2019-03-18 09:43 | PN ---
Progress Note, Physician Chief Complaint: in bed NAD VSS afebrile no new c/o no more fever; much less leg pain no edema or rash - Current Medication List Current Medications: Active Medications Acetaminophen (Tylenol -) 650 mg PO Q6H PRN PRN Reason: FEVER OR PAIN LEVEL 1-5 Last Admin: 03/16/19 16:37 Dose: 650 mg Allopurinol (Zyloprim -) 100 mg PO DAILY [facility] Last Admin: 03/17/19 14:13 Dose: 100 mg Aspirin (Asa -) 81 mg PO DAILY [facility] Last Admin: 03/17/19 14:12 Dose: 81 mg Atorvastatin Calcium (Lipitor -) 80 mg PO HS [facility] Last Admin: 03/17/19 21:25 Dose: 80 mg Bacitracin (Bacitracin -) 1 applic TP Q2D [facility] Last Admin: 03/17/19 14:12 Dose: 1 applic Brimonidine Tartrate (Alphagan 0.15% -) 1 drop OS TID [facility] Last Admin: 03/18/19 06:28 Dose: 1 drop Cinacalcet (Sensipar -) 30 mg PO DAILY [facility] Last Admin: 03/17/19 14:13 Dose: 30 mg Dorzolamide HCl (Trusopt 2%) 1 drop OS TID [facility] Last Admin: 03/18/19 06:28 Dose: 1 drop Epoetin Lauri (Epogen -) 4,000 unit IVPUSH ONCE ONE Stop: 03/18/19 07:01 Ferrous Sulfate (Feosol -) 325 mg PO DAILY [facility] Last Admin: 03/17/19 14:12 Dose: 325 mg Furosemide (Lasix -) 80 mg PO DAILY [facility] Last Admin: 03/17/19 14:11 Dose: 80 mg Heparin Sodium (Porcine) (Heparin -) 5,000 unit SQ BID [facility] Last Admin: 03/17/19 21:25 Dose: 5,000 unit Hydralazine HCl (Apresoline -) 50 mg PO TID [facility] Last Admin: 03/18/19 06:28 Dose: 50 mg Piperacillin Sod/Tazobactam (Sod 2.25 gm/ Dextrose) 50 mls @ 100 mls/hr IVPB Q8H-IV [facility]; Protocol Last Admin: 03/18/19 01:58 Dose: 100 mls/hr Sodium Chloride (Normal Saline -) 250 mls @ 3,000 mls/hr IV PRN PRN PRN Reason: Hypotension during Dialysis Stop: 03/18/19 23:38 Vancomycin HCl 1,250 mg/ (Dextrose) 250 mls @ 250 mls/2 hr IVPB ONCE ONE; Protocol Stop: 03/18/19 08:59 Indomethacin (Indocin -) 50 mg PO BID [facility] Last Admin: 03/17/19 21:25 Dose: 50 mg Insulin Aspart (Novolog Vial Sliding Scale -) 1 vial SQ [facility]; Protocol Last Admin: 03/18/19 06:30 Dose: 6 unit Insulin Detemir (Levemir Vial) 10 units SQ DAILY@0700 [facility] Last Admin: 03/18/19 06:29 Dose: 10 units Insulin Detemir (Levemir Vial) 8 units SQ [facility] Last Admin: 03/17/19 21:25 Dose: 8 unit Latanoprost (Xalatan 0.005% Eye Drops -) 1 drop OS [facility] Last Admin: 03/17/19 21:28 Dose: 1 drop Lisinopril (Prinivil) 5 mg PO DAILY [facility] Last Admin: 03/17/19 14:13 Dose: 5 mg Loratadine (Claritin -) 10 mg PO DAILY [facility] Last Admin: 03/17/19 14:12 Dose: 10 mg Magnesium Oxide (Mag-Ox -) 400 mg PO TID [facility] Last Admin: 03/18/19 06:28 Dose: 400 mg Morphine Sulfate (Morphine Sulfate) 2 mg IVPUSH Q3H PRN PRN Reason: PAIN LEVEL 4 - 6 Last Admin: 03/17/19 22:43 Dose: 2 mg Senna (Senna -) 2 tab PO HS PRN PRN Reason: CONSTIPATION Sevelamer Carbonate (Renvela -) 2,400 mg PO CM [facility] Last Admin: 03/18/19 08:19 Dose: 2,400 mg - Objective Vital Signs: Vital Signs Temperature 98.6 F 03/18/19 06:15 Pulse Rate 93 H 03/18/19 06:15 Respiratory Rate 03/18/19 06:15 Blood Pressure 110/59 L 03/18/19 06:15 O2 Sat by Pulse Oximetry (%) 99 03/17/19 21:00 Constitutional: Yes: No Distress, Calm Eyes: Yes: Conjunctiva Clear HENT: Yes: Atraumatic Neck: Yes: Supple Cardiovascular: Yes: Regular Rate and Rhythm Respiratory: Yes: CTA Bilaterally Gastrointestinal: Yes: Soft. No: Tenderness Genitourinary: No: Hematuria Musculoskeletal: No: Joint Stiffness, Joint Swelling Extremities: No: Cold, Cool, Cyanosis Edema: No Integumentary: No: Rash, Venous Stasis Changes Neurological: Yes: WNL, Alert, Oriented ...Motor Strength: WNL Psychiatric: Yes: WNL, Alert, Oriented. No: Agitated, Suicidal Ideation Labs: CBC, BMP 03/17/19 08:30 03/16/19 09:15 INR, PTT INR 1.09 (0.83-1.09) 03/14/19 15:46 - ....Imaging Other: Report Reviewed Assessment/Plan 53 yo M with a hx of HTN, HLD, DM, asthma, CHF (normal EF%, poor LV compliance) , ESRD MWF with left AVF, CAD s/p CABG (2010; stent), GERD, and amputation of the left metatarsal presents to the emergency department s/p mechanical fall with right ankle pain. Found to have R ankle fracture, cast placed per ortho; fever - cultures sent; ID eval; IV ATB / ID; pt will need SNF in a NH with HD when stable pain meds; DVT pfx; d/w pt and staff
[2019-03-18 11:22] LABS: HEMATOCRIT 24.1 % (35.4-49); HEMOGLOBIN 7.7 GM/dL (11.7-16.9); MCHC 31.8 g/dl (32.0-35.9); MEAN CELL VOLUME 97.3 fl (80-96); MEAN PLT VOLUME 9.1 fl (7.5-11.1); PLATELET COUNT 224 K/MM3 (134-434); RBC 2.48 M/mm3 (4.00-5.60); RDW 16.3 % (11.9-15.9); WHITE BLOOD COUNT 8.5 K/mm3 (4.0-10.0)
[2019-03-18] MEDS ORDERED: SODIUM CHLORIDE 250 ML IV PRN ×2 (11:28→13:11)
[2019-03-18] MEDS ORDERED: EPOETIN ALFA 2,000 UNIT/1 ML VIAL IVPUSH ONE (11:30)
[2019-03-18 11:51] LABS: ALBUMIN 2.4 g/dl (3.4-5.0); BILIRUBIN,TOTAL 0.4 mg/dL (0.2-1); BLOOD UREA NITROGEN 79.6 mg/dL (7-18); CALCIUM 7.7 mg/dL (8.5-10.1); PHOSPHOROUS 7.4 mg/dL (2.5-4.9); POTASSIUM 5.4 mmol/L (3.5-5.1); TOT PROT 6.2 g/dl (6.4-8.2)
[2019-03-18] MEDS ORDERED: EPOETIN ALFA 20,000 UNIT/1 ML VIAL IVPUSH ONE (12:30)
[2019-03-18 12:31] LABS: CREATININE 9.7 mg/dL (0.55-1.3)
[2019-03-18] MEDS ORDERED: VANCOMYCIN HCL 1,250 MG in DEXTROSE 5%-WATER - 250 ML IVPB ONE (13:00)
--- NOTE | 2019-03-18 13:05 | PN ---
Progress Note (short form) - Note Progress Note: no further fever or chills no cough or sob chest ct with stable chronic effusion, ?pleural based mass seen at HD, feels well Vital Signs Period Temp Pulse Resp BP Sys/Henao Pulse Ox Last 24 Hr 97.8 F-99.1 F 80-108 18-20 90-130/50-70 98-99 cor-rrr lungs decreased bs at bases abd soft,nt ext cast right leg CBC, BMP 03/18/19 10:30 03/18/19 10:30 cultures pending vanco trough 17 a/p fever s/p leg fracture esrd/hd mrsa contact isolation abnl chest ct- pulmonary to evaluate will d/c antibiotics and f/u cultures
--- NOTE | 2019-03-18 13:09 | PN ---
Progress Note (short form) - Note Progress Note: Renal follow up for ESRD on HD Seen and examined while on dialysis awake and alert offers no acute complaints has some chest pain and nausea this am, now resolved no shortness of breath no fever/chills access functioning well Vital Signs Temperature 98.8 F 03/18/19 10:25 Pulse Rate 93 H 03/18/19 12:00 Respiratory Rate 18 03/18/19 12:00 Blood Pressure 100/62 03/18/19 12:00 O2 Sat by Pulse Oximetry (%) 98 03/18/19 09:00 Intake & Output 03/15/19 03/16/19 03/17/19 03/18/19 23:59 23:59 23:59 23:59 Intake Total 443 059 6806 950 Output Total 2300 Balance 440 -1380 1660 950 Weight 101.831 kg 101.831 kg 100.811 kg 100.244 kg NAD RRR, no M/R CTA, no rales or wheeze soft, obese, NT/ND no LE edema left arm AVF Right leg in cast CBC, BMP 03/18/19 10:30 03/18/19 10:30 Current Medications Acetaminophen (Tylenol -) 650 mg PO Q6H PRN PRN Reason: FEVER OR PAIN LEVEL 1-5 Last Admin: 03/16/19 16:37 Dose: 650 mg Allopurinol (Zyloprim -) 100 mg PO DAILY [facility] Last Admin: 03/17/19 14:13 Dose: 100 mg Aspirin (Asa -) 81 mg PO DAILY [facility] Last Admin: 03/17/19 14:12 Dose: 81 mg Atorvastatin Calcium (Lipitor -) 80 mg PO HS [facility] Last Admin: 03/17/19 21:25 Dose: 80 mg Bacitracin (Bacitracin -) 1 applic TP Q2D [facility] Last Admin: 03/17/19 14:12 Dose: 1 applic Brimonidine Tartrate (Alphagan 0.15% -) 1 drop OS TID [facility] Last Admin: 03/18/19 06:28 Dose: 1 drop Cinacalcet (Sensipar -) 30 mg PO DAILY [facility] Last Admin: 03/17/19 14:13 Dose: 30 mg Dorzolamide HCl (Trusopt 2%) 1 drop OS TID [facility] Last Admin: 03/18/19 06:28 Dose: 1 drop Ferrous Sulfate (Feosol -) 325 mg PO DAILY [facility] Last Admin: 03/17/19 14:12 Dose: 325 mg Furosemide (Lasix -) 80 mg PO DAILY [facility] Last Admin: 03/17/19 14:11 Dose: 80 mg Heparin Sodium (Porcine) (Heparin -) 5,000 unit SQ BID [facility] Last Admin: 03/17/19 21:25 Dose: 5,000 unit Hydralazine HCl (Apresoline -) 50 mg PO TID [facility] Last Admin: 03/18/19 06:28 Dose: 50 mg Piperacillin Sod/Tazobactam (Sod 2.25 gm/ Dextrose) 50 mls @ 100 mls/hr IVPB Q8H-IV [facility]; Protocol Last Admin: 03/18/19 01:58 Dose: 100 mls/hr Sodium Chloride (Normal Saline -) 250 mls @ 3,000 mls/hr IV PRN PRN PRN Reason: Hypotension during Dialysis Stop: 03/19/19 11:27 Vancomycin HCl 1,250 mg/ (Dextrose) 250 mls @ 250 mls/2 hr IVPB ONCE ONE; Protocol Stop: 03/18/19 14:59 Indomethacin (Indocin -) 50 mg PO BID [facility] Last Admin: 03/17/19 21:25 Dose: 50 mg Insulin Aspart (Novolog Vial Sliding Scale -) 1 vial SQ ACHS [facility]; Protocol Last Admin: 03/18/19 06:30 Dose: 6 unit Insulin Detemir (Levemir Vial) 10 units SQ DAILY@0700 [facility] Last Admin: 03/18/19 06:29 Dose: 10 units Insulin Detemir (Levemir Vial) 8 units SQ HS [facility] Last Admin: 03/17/19 21:25 Dose: 8 unit Latanoprost (Xalatan 0.005% Eye Drops -) 1 drop OS HS [facility] Last Admin: 03/17/19 21:28 Dose: 1 drop Lisinopril (Prinivil) 5 mg PO DAILY [facility] Last Admin: 03/17/19 14:13 Dose: 5 mg Loratadine (Claritin -) 10 mg PO DAILY [facility] Last Admin: 03/17/19 14:12 Dose: 10 mg Magnesium Oxide (Mag-Ox -) 400 mg PO TID [facility] Last Admin: 03/18/19 06:28 Dose: 400 mg Senna (Senna -) 2 tab PO HS PRN PRN Reason: CONSTIPATION Sevelamer Carbonate (Renvela -) 2,400 mg PO CM [facility] Last Admin: 03/18/19 08:19 Dose: 2,400 mg 53 year old gentleman with history of ESRD on HD (MWF), CAD s/p CABG, CHF, hypertension, HLD, DM who presented with mechanical fall s/p dialysis and found to have tibial fracture. 1. Mechanical fall with tibial fracture 2. ESRD on HD 3. CAD/CHF 4. DM 6. HLD 7. CKD related anemia r/o bleed 8. Renal Osteodystrophy 9. Hypertension Tolerated dialysis with [facility] today will arrange additional dialysis with [facility] tomorrow to hopefully decrease effusions noted on CT scan Renal diet, 1.2L fluid restriction Continue Lisinopril, Lasix 40mg daily Will give high dose Epogen and venofer today Continue Renvela with meals for hyperphosphatemia and senspiar for secondary hyperparathyrodism to be off antibiotics as per ID Cardiology follow up for chest pain Thank you Antwan Hurley DO
[2019-03-18] MEDS ORDERED: IRON SUCROSE INJECTION 100 MG in SODIUM CHLORIDE 95 ML IVPB ONE (14:00)
--- NOTE | 2019-03-18 14:03 | EKG ---
Test Reason : Blood Pressure : / mmHG Vent. Rate : 091 BPM Atrial Rate : 091 BPM P-R Int : 186 ms QRS Dur : 092 ms QT Int : 396 ms P-R-T Axes : 065 022 108 degrees QTc Int : 487 ms NORMAL SINUS RHYTHM SEPTAL INFARCT (CITED ON OR BEFORE 13-DEC-2009) ABNORMAL ECG WHEN COMPARED WITH ECG OF 14-MAR-2019 17:32, NONSPECIFIC T WAVE ABNORMALITY NOW EVIDENT IN INFERIOR LEADS NONSPECIFIC T WAVE ABNORMALITY, WORSE IN LATERAL LEADS Confirmed by GREY FISCHER MD ([id number]) on 03/18/2019 2:02:39 PM Referred By: Confirmed By:GREY FISCHER MD
[2019-03-18] MEDS: LORATADINE 10 MG TABLET PO SCH (14:36)
[2019-03-18] MEDS: ASPIRIN 81 MG CHEWABLE TABLETS PO SCH (14:36)
[2019-03-18] MEDS: HEPARIN NA (PORCINE) 5,000 UNITS/ML 1ML VIAL SQ SCH ×2 (14:36→21:20)
[2019-03-18] MEDS: FERROUS SO4 325 MG TABLET (FP) PO SCH (14:36)
[2019-03-18] MEDS: INDOMETHACIN 50 MG CAPSULE PO SCH ×2 (14:37→21:18)
[2019-03-18] MEDS: LISINOPRIL 5 MG TABLET (FP) PO SCH (14:37)
[2019-03-18] MEDS: FUROSEMIDE 40 MG TABLET (FP) PO SCH (14:37)
[2019-03-18] MEDS: CINACALCET HCL 30 MG TAB (FP) PO SCH (14:37)
[2019-03-18] MEDS: ALLOPURINOL 100 MG TABLET (FP) PO SCH (14:38)
[2019-03-18] MEDS ORDERED: PT OWN MED DRAWER 7, Y5N ONE (21:05)
[2019-03-18] MEDS: ATORVASTATIN CA 80 MG TABLET (FP) PO SCH (21:17)
[2019-03-18] MEDS: ACETAMINOPHEN 325 MG TABLET (FP) PO PRN (21:17)
[2019-03-18] MEDS: LATANOPROST 0.005% OPHTH SOLN 2.5ML BOTTLE OS SCH (22:02)
[2019-03-19] MEDS: hydrALAZINE HCL 50 MG TABLET (FP) PO SCH (05:19)
[2019-03-19] MEDS: BRIMONIDINE TARTRATE 0.15% OPHTHALMIC 5 ML BOTTLE OS SCH ×3 (05:19→21:00)
[2019-03-19] MEDS: MAGNESIUM OXIDE 400 MG TABLET (FP) PO SCH ×3 (05:19→21:19)
[2019-03-19] MEDS: INSULIN SLIDING SCALE (NOVOLOG) 1 VIAL SQ SCH ×4 (06:08→21:21)
[2019-03-19] MEDS: INSULIN (LEVEMIR) 100 UNITS/ML UNITS SQ SCH ×2 (06:08→21:21)
[2019-03-19] MEDS: DORZOLAMIDE 2% HCL OPHTHALMIC SOLUTION 10 ML BOTTLE OS SCH ×3 (06:10→21:10)
--- NOTE | 2019-03-19 07:03 | PN ---
Progress Note, Physician Chief Complaint: had some constipation last evening followed by small blood streak in stool (red ) and some chest discomfort and laboured breathing; now no CP SOB no NVD abd pain no bleeding; has chronic constipation - Current Medication List Current Medications: Active Medications Acetaminophen (Tylenol -) 650 mg PO Q6H PRN PRN Reason: FEVER OR PAIN LEVEL 1-5 Last Admin: 03/18/19 21:17 Dose: 650 mg Allopurinol (Zyloprim -) 100 mg PO DAILY [facility] Last Admin: 03/18/19 14:38 Dose: Not Given Aspirin (Asa -) 81 mg PO DAILY [facility] Last Admin: 03/18/19 14:36 Dose: Not Given Atorvastatin Calcium (Lipitor -) 80 mg PO HS [facility] Last Admin: 03/18/19 21:17 Dose: 80 mg Bacitracin (Bacitracin -) 1 applic TP Q2D [facility] Last Admin: 03/17/19 14:12 Dose: 1 applic Brimonidine Tartrate (Alphagan 0.15% -) 1 drop OS TID [facility] Last Admin: 03/19/19 05:19 Dose: 1 drop Cinacalcet (Sensipar -) 30 mg PO DAILY [facility] Last Admin: 03/18/19 14:37 Dose: Not Given Dorzolamide HCl (Trusopt 2%) 1 drop OS TID [facility] Last Admin: 03/19/19 06:10 Dose: 1 drop Ferrous Sulfate (Feosol -) 325 mg PO DAILY [facility] Last Admin: 03/18/19 14:36 Dose: Not Given Furosemide (Lasix -) 80 mg PO DAILY [facility] Last Admin: 03/18/19 14:37 Dose: Not Given Hydralazine HCl (Apresoline -) 50 mg PO TID [facility] Last Admin: 03/19/19 05:19 Dose: 50 mg Sodium Chloride (Normal Saline -) 250 mls @ 3,000 mls/hr IV PRN PRN PRN Reason: Hypotension during Dialysis Stop: 03/19/19 11:27 Sodium Chloride (Normal Saline -) 250 mls @ 3,000 mls/hr IV PRN PRN PRN Reason: Hypotension during Dialysis Stop: 03/19/19 13:11 Sodium Chloride (Normal Saline -) 250 mls @ 3,000 mls/hr IV PRN PRN PRN Reason: Hypotension during Dialysis Stop: 03/19/19 13:13 Insulin Aspart (Novolog Vial Sliding Scale -) 1 vial SQ [facility]; Protocol Last Admin: 03/19/19 06:08 Dose: 4 unit Insulin Detemir (Levemir Vial) 10 units SQ DAILY@0700 [facility] Last Admin: 03/19/19 06:08 Dose: 10 units Insulin Detemir (Levemir Vial) 8 units SQ [facility] Last Admin: 03/18/19 21:11 Dose: 8 unit Latanoprost (Xalatan 0.005% Eye Drops -) 1 drop OS [facility] Last Admin: 03/18/19 22:02 Dose: 1 drop Lisinopril (Prinivil) 5 mg PO DAILY [facility] Last Admin: 03/18/19 14:37 Dose: Not Given Loratadine (Claritin -) 10 mg PO DAILY [facility] Last Admin: 03/18/19 14:36 Dose: Not Given Magnesium Oxide (Mag-Ox -) 400 mg PO TID [facility] Last Admin: 03/19/19 05:19 Dose: 400 mg Pantoprazole Sodium (Protonix -) 20 mg PO DAILY [facility] Senna (Senna -) 2 tab PO PRN PRN Reason: CONSTIPATION Sevelamer Carbonate (Renvela -) 2,400 mg PO [facility] Last Admin: 03/18/19 17:05 Dose: 2,400 mg - Objective Vital Signs: Vital Signs Temperature 98.4 F 03/19/19 05:21 Pulse Rate 90 03/19/19 05:21 Respiratory Rate 16 03/19/19 05:21 Blood Pressure 123/63 03/19/19 05:21 O2 Sat by Pulse Oximetry (%) 98 03/18/19 21:00 Constitutional: Yes: No Distress, Calm Eyes: Yes: Conjunctiva Clear HENT: Yes: Atraumatic Neck: Yes: Supple Cardiovascular: Yes: Regular Rate and Rhythm Respiratory: Yes: CTA Bilaterally Gastrointestinal: Yes: Soft. No: Tenderness Genitourinary: No: Hematuria Musculoskeletal: No: Joint Stiffness, Joint Swelling Extremities: No: Cold, Cool Edema: No Integumentary: No: Rash, Venous Stasis Changes Neurological: Yes: Alert, Oriented ...Motor Strength: WNL Psychiatric: Yes: Alert, Oriented. No: Agitated, Suicidal Ideation Labs: CBC, BMP 03/18/19 10:30 03/18/19 10:30 INR, PTT INR 1.09 (0.83-1.09) 03/14/19 15:46 - ....Imaging Other: Report Reviewed Assessment/Plan 53 yo M with a hx of HTN, HLD, DM, asthma, CHF (normal EF%, poor LV compliance) , ESRD MWF with left AVF, CAD s/p CABG (2010; stent), GERD, and amputation of the left metatarsal presents to the emergency department s/p mechanical fall with right ankle pain. Found to have R ankle fracture, cast placed per ortho; fever - cultures sent; ID eval; IV ATB / ID; small amnt RBRPR and chest discomfort: GI and cardio eval; stools softeners; pt will need SNF in a NH with HD when stable pain meds; DVT pfx; d/w pt and staff
[2019-03-19] MEDS: SEVELAMER CARBONATE 800 MG TAB (FP) PO SCH ×3 (08:35→17:26)
[2019-03-19] MEDS: FUROSEMIDE 40 MG TABLET (FP) PO SCH (10:18)
[2019-03-19] MEDS: ALLOPURINOL 100 MG TABLET (FP) PO SCH (10:18)
[2019-03-19] MEDS: CINACALCET HCL 30 MG TAB (FP) PO SCH (10:18)
[2019-03-19] MEDS: LORATADINE 10 MG TABLET PO SCH (10:19)
[2019-03-19] MEDS: PANTOPRAZOLE 20 MG TABLET PO SCH (10:19)
[2019-03-19] MEDS: FERROUS SO4 325 MG TABLET (FP) PO SCH (10:19)
[2019-03-19] MEDS: ASPIRIN 81 MG CHEWABLE TABLETS PO SCH (10:19)
[2019-03-19] MEDS: LISINOPRIL 5 MG TABLET (FP) PO SCH (10:19)
[2019-03-19] MEDS: BACITRACIN 15 GM TUBE TOPICAL OINTMENT TP SCH (10:21)
--- NOTE | 2019-03-19 11:06 | PN ---
Progress Note (short form) - Note Progress Note: RENAL Pt is awake and alert denies complaints fell by hd unit and fractured leg Last Vital Signs Temp Pulse Resp BP Pulse Ox 98.4 F 90 16 123/63 98 03/19/19 05:21 03/19/19 05:21 03/19/19 05:21 03/19/19 05:21 03/18/19 21:00 corneal opacity on left chest surgical scar lungs clear cvs s1s2 rr abd soft ext no edema, cast on right leg neuro a+ox3 skin multiple paular lesions CBC, BMP 03/18/19 10:30 03/18/19 10:30 Current Medications Generic Name Dose Route Start Last Admin Trade Name Freq PRN Reason Stop Dose Admin Acetaminophen 650 mg 03/16/19 16:19 03/18/19 21:17 Tylenol - PO 650 mg Q6H PRN Administration FEVER OR PAIN LEVEL 1-5 Allopurinol 100 mg 03/15/19 10:00 03/19/19 10:18 Zyloprim - PO 100 mg DAILY [facility] Administration Aspirin 81 mg 03/15/19 10:00 03/19/19 10:19 Asa - PO 81 mg DAILY [facility] Administration Atorvastatin Calcium 80 mg 03/14/19 22:00 03/18/19 21:17 Lipitor - PO 80 mg HS [facility] Administration Bacitracin 1 applic 03/15/19 22:00 03/19/19 10:21 Bacitracin - TP 1 applic Q2D [facility] Administration Brimonidine Tartrate 1 drop 03/14/19 22:00 03/19/19 05:19 Alphagan 0.15% - OS 1 drop TID [facility] Administration Cinacalcet 30 mg 03/15/19 10:00 03/19/19 10:18 Sensipar - PO 30 mg DAILY [facility] Administration Dorzolamide HCl 1 drop 03/14/19 22:00 03/19/19 06:10 Trusopt 2% OS 1 drop TID [facility] Administration Ferrous Sulfate 325 mg 03/15/19 10:00 03/19/19 10:19 Feosol - PO 325 mg DAILY [facility] Administration Furosemide 80 mg 03/15/19 10:00 03/19/19 10:18 Lasix - PO 80 mg DAILY [facility] Administration Hydralazine HCl 25 mg 03/19/19 07:03 Apresoline - PO TID [facility] Sodium Chloride 250 mls @ 3,000 mls/hr 03/18/19 11:28 Normal Saline - IV 03/19/19 11:27 PRN PRN Hypotension during Dialysis Sodium Chloride 250 mls @ 3,000 mls/hr 03/18/19 13:11 Normal Saline - IV 03/19/19 13:11 PRN PRN Hypotension during Dialysis Sodium Chloride 250 mls @ 3,000 mls/hr 03/18/19 13:13 Normal Saline - IV 03/19/19 13:13 PRN PRN Hypotension during Dialysis Insulin Aspart 1 vial 03/14/19 22:00 03/19/19 06:08 Novolog Vial Sliding Scale - SQ 4 unit ACHS [facility] Administration Protocol Insulin Detemir 10 units 03/15/19 07:00 03/19/19 06:08 Levemir Vial SQ 10 units DAILY@0700 [facility] Administration Insulin Detemir 8 units 03/14/19 22:00 03/18/19 21:11 Levemir Vial SQ 8 unit HS [facility] Administration Latanoprost 1 drop 03/14/19 22:00 03/18/19 22:02 Xalatan 0.005% Eye Drops - OS 1 drop HS [facility] Administration Lisinopril 5 mg 03/15/19 10:00 03/19/19 10:19 Prinivil PO 5 mg DAILY [facility] Administration Loratadine 10 mg 03/15/19 10:00 03/19/19 10:19 Claritin - PO 10 mg DAILY [facility] Administration Magnesium Oxide 400 mg 03/14/19 22:00 03/19/19 05:19 Mag-Ox - PO 400 mg TID [facility] Administration Pantoprazole Sodium 20 mg 03/19/19 10:00 03/19/19 10:19 Protonix - PO 20 mg DAILY [facility] Administration Senna 2 tab 03/14/19 17:54 Senna - PO HS PRN CONSTIPATION Sevelamer Carbonate 2,400 mg 03/15/19 08:00 03/19/19 08:35 Renvela - PO 2,400 mg CM [facility] Administration 53 year old gentleman with history of ESRD on HD (MWF), CAD s/p CABG, CHF, hypertension, HLD, DM who presented with mechanical fall s/p dialysis and found to have tibial fracture. 1. Mechanical fall with tibial fracture 2. ESRD on HD 3. CAD/CHF 4. DM 6. HLD 7. CKD related anemia r/o bleed 8. Renal Osteodystrophy 9. Hypertension hyperphosphatemia maybe source of his hyperpigmented papules so need to control - diet and sevelamer for hd today cautious use of mag- check level MV
[2019-03-19 11:34] LABS: HEMATOCRIT 27.2 % (35.4-49); HEMOGLOBIN 8.7 GM/dL (11.7-16.9); MCH 31.2 pg (25.7-33.7); MCHC 32.2 g/dl (32.0-35.9); PLATELET COUNT 256 K/MM3 (134-434); RDW 16.7 % (11.9-15.9); WHITE BLOOD COUNT 7.5 K/mm3 (4.0-10.0)
[2019-03-19] MEDS: hydrALAZINE HCL 25 MG TABLET (FP) PO SCH ×2 (14:18→21:23)
--- NOTE | 2019-03-19 16:08 | CON.GI ---
Consult Consult Specialty:: Gastroenterology ( covering Dr Anne) Referred by:: Dr. Dunbar Reason for Consultation:: Rectal bleeding - History of Present Illness Chief Complaint: Rectal bleeding History of Present Illness: 53M is admitted for a right ankle fracture sustained after a fall. Yesterday he had blood alongside a formed stool. He has been constipated and straining. NO bleeding today. He last had a colonoscopy with Dr Anne on 11/04/12 which led to the removal of hyperplastic polyps from the descending colon and sigmoid and from the gastric fundus. He had a GE junction ulcer which was biopsied and raised the possibility of Lares's metaplasia. He had a UGI bleeding in 2010 from a GE junction ulcer also found by Dr Anne. Dr Davison last did an EGD on 10/28/17 that revealed atrophioc gastritis. The esophageal mucosa was described as normal. - History Source History Provided By: Patient, Medical Record Limitations to Obtaining History: No Limitations - Past Medical History Cardio/Vascular: Yes: CAD [place] [facility] [place] CHF ( normal ejection fraction; poor LV compliance; no valvular abnormalities), HTN, Hyperlipdemia, DE (led to 2 vessel CABG at [facility]) Pulmonary: Yes: Asthma, Pneumonia Gastrointestinal: Yes: GERD, GI Bleed (GE jucntion ulcer in 2010), Other (colon and gastric hyperplastic polyps removed [address] Anne) Renal/: Yes: Renal Failure, Hemodialysis (ESRD on HD MWF via L arm AVF) Infectious Disease: Yes: Other (osteomyelitis left foot amputated) Psych: Yes: Anxiety Musculoskeletal: Yes: Other Rheumatology: Yes: Gout Endocrine: Yes: Diabetes Mellitus Additional Medical History: as above in HPI; L eye blindness; on renal transplant list at [facility]. bilateral detached retinas - Past Surgical History Past Surgical History: Yes: Amputation (Left Transmetatarsal), AV Fistula/Graft (LUE), CABG (05/2010), Colonoscopy, Stent (s/p cardiac cath with stent placement) , Upper Endoscopy Additional Surgical History: left retinal detachment surgery but not successful - Alcohol/Substance Use Hx Alcohol Use: No History of Substance Use: reports: None - Smoking History Smoking history: Never smoked Have you smoked in the past 12 months: No Aproximately how many cigarettes per day: 2 If you are a former smoker, when did you quit?: 1989 - Social History Usual Living Arrangement: With Spouse ADL: Independent 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 Place of : [facility] History of Recent Travel: No Home Medications - Allergies Allergies/Adverse Reactions: Allergies Allergy/AdvReac Type Severity Reaction Status Date / Time No Known Drug Allergies Allergy Verified 05/13/18 06:32 - Home Medications Home Medications: Ambulatory Orders Allopurinol [Zyloprim -] 100 mg PO DAILY 05/06/18 Aspirin [ASA -] 81 mg PO DAILY 05/06/18 Atorvastatin Calcium 80 mg PO HS 05/06/18 Bimatoprost [Lumigan] 1 drop OS HS 05/06/18 Brimonidine Tartrate [Alphagan 0.15% -] 1 drop OS TID 05/06/18 Brinzolamide [Azopt] 1 drop OS TID 05/06/18 Cinacalcet HCl [Sensipar -] 30 mg PO DAILY 05/06/18 Ferrous Sulfate [Feosol] 325 mg PO DAILY 05/06/18 Furosemide [Lasix -] 80 mg PO DAILY 05/06/18 Hydralazine HCl 50 mg PO TID 05/06/18 Indomethacin [Indocin -] 50 mg PO BID 05/06/18 Insulin (LOG) Aspart [NovoLOG -] 8 units SQ TID 05/06/18 Insulin Detemir [Levemir Flextouch] 8 unit SQ HS 05/06/18 Levocetirizine Dihydrochloride 10 mg PO DAILY 05/06/18 Lisinopril [Prinivil] 5 mg PO DAILY 05/06/18 Magnesium Oxide [Magox 400] 400 mg PO TID 05/06/18 Omeprazole 20 mg PO DAILY 05/06/18 Sevelamer Carbonate [Renvela -] 2,400 mg PO CM 05/06/18 Tramadol HCl/Acetaminophen [Tramadol-Acetaminophn 37.5-325] 1 each PO BID Insulin (Levemir) [Levemir Vial] 10 units SQ DAILY@0700 units 05/07/18 Sennosides [Senna -] 2 tab PO HS PRN 30 Days #60 tablet MDD 2 05/17/18 Family Medical History Family Hx Cancer: Father ( 75 lung cancer) Family Hx Coronary Artery Disease: Brother Family Hx Diabetes: Sister, Brother Family Hx Respiratory Disorders: Mother ( 45 asthma attack) Review of Systems - Review of Systems Constitutional: reports: Malaise Eyes: reports: Other (blind in left eye) HENT: reports: No Symptoms Cardiovascular: reports: No Symptoms Respiratory: reports: No Symptoms Gastrointestinal: reports: Constipation, Rectal Bleeding Genitourinary: reports: No Symptoms Musculoskeletal: reports: Joint Pain Physical Exam-GI Vital Signs: Vital Signs Temperature 98.8 F 03/19/19 09:00 Pulse Rate 100 H 03/19/19 13:21 Respiratory Rate 18 03/19/19 13:21 Blood Pressure 123/60 03/19/19 13:21 O2 Sat by Pulse Oximetry (%) 98 03/19/19 09:00 CBC,CMP WBC 7.5 K/mm3 (4.0-10.0) 03/19/19 10:43 RBC 2.80 M/mm3 (4.00-5.60) L 03/19/19 10:43 Hgb 8.7 GM/dL (11.7-16.9) L 03/19/19 10:43 Hct 27.2 % (35.4-49) L 03/19/19 10:43 MCV 97.0 fl (80-96) H 03/19/19 10:43 MCH 31.2 pg (25.7-33.7) 03/19/19 10:43 MCHC 32.2 g/dl (32.0-35.9) 03/19/19 10:43 RDW 16.7 % (11.9-15.9) H 03/19/19 10:43 Plt Count 256 K/MM3 (134-434) 03/19/19 10:43 MPV 9.0 fl (7.5-11.1) 03/19/19 10:43 Absolute Neuts (auto) 8.0 K/mm3 (1.5-8.0) 03/17/19 08:30 Neutrophils % 90.5 % (42.8-82.8) H 03/17/19 08:30 Lymphocytes % 2.5 % (8-40) L D 03/17/19 08:30 Monocytes % 4.9 % (3.8-10.2) 03/17/19 08:30 Eosinophils % 1.4 % (0-4.5) 03/17/19 08:30 Basophils % 0.7 % (0-2.0) 03/17/19 08:30 Nucleated RBC % 0 % (0-0) 03/17/19 08:30 Sodium 134 mmol/L (136-145) L 03/18/19 10:30 Potassium 5.4 mmol/L (3.5-5.1) H 03/18/19 10:30 Chloride 95 mmol/L (98-107) L 03/18/19 10:30 Carbon Dioxide 26 mmol/L (21-32) 03/18/19 10:30 Anion Gap 13 MMOL/L (8-16) 03/18/19 10:30 BUN 79.6 mg/dL (7-18) H 03/18/19 10:30 Creatinine 9.7 mg/dL (0.55-1.3) H* 03/18/19 10:30 Est GFR (CKD-EPI)AfAm 6.36 03/18/19 10:30 Est GFR (CKD-EPI)NonAf 5.49 03/18/19 10:30 POC Glucometer 221 UNITS (80-120) 03/19/19 05:57 Random Glucose 198 mg/dL (74-106) H 03/18/19 10:30 Calcium 7.7 mg/dL (8.5-10.1) L 03/18/19 10:30 Phosphorus 7.4 mg/dL (2.5-4.9) H 03/18/19 10:30 Magnesium 2.7 mg/dL (1.8-2.4) H 03/19/19 11:10 Total Bilirubin 0.4 mg/dL (0.2-1) 03/18/19 10:30 AST 21 U/L (15-37) 03/18/19 10:30 ALT 11 U/L (13-61) L 03/18/19 10:30 Alkaline Phosphatase 336 U/L (45-117) H 03/18/19 10:30 Creatine Kinase 561 U/L (26-308) H 03/18/19 10:30 Creatine Kinase Index 0.9 % (0.0-5.0) 03/18/19 10:30 CK-MB (CK-2) 5.1 ng/mL (0.5-3.6) H 03/18/19 10:30 Troponin I 0.05 ng/ml (0.00-0.05) 03/18/19 10:30 Total Protein 6.2 g/dl (6.4-8.2) L 03/18/19 10:30 Albumin 2.4 g/dl (3.4-5.0) L 03/18/19 10:30 Current Medications Generic Name Dose Route Start Last Admin Trade Name Freq PRN Reason Stop Dose Admin Acetaminophen 650 mg 03/16/19 16:19 03/18/19 21:17 Tylenol - PO 650 mg Q6H PRN Administration FEVER OR PAIN LEVEL 1-5 Allopurinol 100 mg 03/15/19 10:00 03/19/19 10:18 Zyloprim - PO 100 mg DAILY SAUNDRA Administration Aspirin 81 mg 03/15/19 10:00 03/19/19 10:19 Asa - PO 81 mg DAILY SAUNDRA Administration Atorvastatin Calcium 80 mg 03/14/19 22:00 03/18/19 21:17 Lipitor - PO 80 mg HS SAUNDRA Administration Bacitracin 1 applic 03/15/19 22:00 03/19/19 10:21 Bacitracin - TP 1 applic Q2D SAUNDRA Administration Brimonidine Tartrate 1 drop 03/14/19 22:00 03/19/19 14:18 Alphagan 0.15% - OS 1 drop TID SAUNDRA Administration Cinacalcet 30 mg 03/15/19 10:00 03/19/19 10:18 Sensipar - PO 30 mg DAILY SAUNDRA Administration Dorzolamide HCl 1 drop 03/14/19 22:00 03/19/19 14:18 Trusopt 2% OS 1 drop TID SAUNDRA Administration Ferrous Sulfate 325 mg 03/15/19 10:00 03/19/19 10:19 Feosol - PO 325 mg DAILY SAUNDRA Administration Furosemide 80 mg 03/15/19 10:00 03/19/19 10:18 Lasix - PO 80 mg DAILY SAUNDRA Administration Hydralazine HCl 25 mg 03/19/19 07:03 03/19/19 14:18 Apresoline - PO 25 mg TID SAUNDRA Administration Sodium Chloride 250 mls @ 3,000 mls/hr 03/18/19 13:11 Normal Saline - IV 03/19/19 13:11 PRN PRN Hypotension during Dialysis Sodium Chloride 250 mls @ 3,000 mls/hr 03/18/19 13:13 Normal Saline - IV 03/19/19 13:13 PRN PRN Hypotension during Dialysis Insulin Aspart 1 vial 03/14/19 22:00 03/19/19 11:44 Novolog Vial Sliding Scale - SQ Not Given ACHS [facility] Protocol Insulin Detemir 10 units 03/15/19 07:00 03/19/19 06:08 Levemir Vial SQ 10 units DAILY@0700 SAUNDRA Administration Insulin Detemir 8 units 03/14/19 22:00 03/18/19 21:11 Levemir Vial SQ 8 unit HS [facility] Administration Latanoprost 1 drop 03/14/19 22:00 03/18/19 22:02 Xalatan 0.005% Eye Drops - OS 1 drop HS [facility] Administration Lisinopril 5 mg 03/15/19 10:00 03/19/19 10:19 Prinivil PO 5 mg DAILY SAUNDRA Administration Loratadine 10 mg 03/15/19 10:00 03/19/19 10:19 Claritin - PO 10 mg DAILY SAUNDRA Administration Magnesium Oxide 400 mg 03/14/19 22:00 03/19/19 14:18 Mag-Ox - PO 400 mg TID SAUNDRA Administration Pantoprazole Sodium 20 mg 03/19/19 10:00 03/19/19 10:19 Protonix - PO 20 mg DAILY SAUNDRA Administration Senna 2 tab 03/14/19 17:54 Senna - PO HS PRN CONSTIPATION Sevelamer Carbonate 2,400 mg 03/15/19 08:00 03/19/19 14:18 Renvela - PO 2,400 mg CM SAUNDRA Administration Constitutional: Yes: Calm Eyes: Yes: Other (scarred blind left eye) HENT: Yes: Atraumatic Neck: Yes: Trachea Midline Cardiovascular: Yes: Regular Rate and Rhythm, Other (healed median sternotomy incision) Respiratory: Yes: CTA Bilaterally Gastrointestinal Inspection: Yes: Distention (obese) ...Auscultate: Yes: Normoactive Bowel Sounds ...Palpate: Yes: Soft, Other (nontender) ...Rectal Exam: Yes: Guaiac Positive (hard stool, palable hemorrhoids, guaiac positive stool. 1+ prostate), Hemorrhoids/External Extremities: Yes: Amputation (left transmetatarsal), Other (LUE AV fistula) Neurological: Yes: Alert, Oriented Labs: CBC, BMP 03/19/19 10:43 03/18/19 10:30 INR, PTT INR 1.09 (0.83-1.09) 03/14/19 15:46 Problem List - Problems (1) Hematochezia Code(s): K92.1 - MELENA (2) Constipation Code(s): K59.00 - CONSTIPATION, UNSPECIFIED (3) Colon polyp, hyperplastic Code(s): K63.5 - POLYP OF COLON (4) Gastric polyp Code(s): K31.7 - POLYP OF STOMACH AND DUODENUM (5) Hypertension Code(s): I10 - ESSENTIAL (PRIMARY) HYPERTENSION Qualifiers: Hypertension type: essential hypertension Qualified Code(s): I10 - Essential (primary) hypertension (6) CAD (coronary artery disease) Code(s): I25.10 - ATHSCL HEART DISEASE OF [place] CORONARY ARTERY W/O ANG PCTRS (7) CHF (congestive heart failure) Code(s): I50.9 - HEART FAILURE, UNSPECIFIED (8) Diabetes mellitus Code(s): E11.9 - TYPE 2 DIABETES MELLITUS WITHOUT COMPLICATIONS Qualifiers: Diabetes mellitus type: type 2 Diabetes mellitus complication status: with kidney complications Diabetes mellitus complication detail: with chronic kidney disease (9) GERD (gastroesophageal reflux disease) Code(s): K21.9 - GASTRO-ESOPHAGEAL REFLUX DISEASE WITHOUT ESOPHAGITIS (10) History of DE (myocardial infarction) Code(s): I25.2 - OLD MYOCARDIAL INFARCTION (11) ESRD (end stage renal disease) on dialysis Code(s): N18.6 - END STAGE RENAL DISEASE; Z99.2 - DEPENDENCE ON RENAL DIALYSIS (12) Accidental fall Code(s): W19.XXXA - UNSPECIFIED FALL, INITIAL ENCOUNTER Qualifiers: Encounter type: initial encounter Qualified Code(s): W19.XXXA - Unspecified fall, initial encounter (13) Anemia Code(s): D64.9 - ANEMIA, UNSPECIFIED (14) DM (diabetes mellitus), type 2 with renal complications Code(s): E11.29 - TYPE 2 DIABETES MELLITUS W OTH DIABETIC KIDNEY COMPLICATION (15) Gout Code(s): M10.9 - GOUT, UNSPECIFIED (16) Stented coronary artery Code(s): Z95.5 - PRESENCE OF CORONARY ANGIOPLASTY IMPLANT AND GRAFT Assessment/Plan Assessment: - Suspect hemorrhoidal bleeding aggravated by constipation - Personal h/o colon and gastric polyps - GERD with h/o GE junction ulcer bleed Plan: -- Miralax -- F/U with Dr. Anne after discharge --
--- NOTE | 2019-03-19 16:55 | PN ---
Progress Note (short form) - Note Progress Note: PULMONARY PATIENT SEEN AND EXAMINED FULL CONSULT TO FOLLOW Fawad DAMON MD
[2019-03-19] MEDS: LATANOPROST 0.005% OPHTH SOLN 2.5ML BOTTLE OS SCH (21:20)
[2019-03-19] MEDS: ATORVASTATIN CA 80 MG TABLET (FP) PO SCH (21:23)
[2019-03-19] MEDS: POLYETHYLENE GLYCOL 3350 119 GM BTL PO SCH (21:26)
[2019-03-20] MEDS ORDERED: INSULIN (NOVOLOG) ASPART 100 UNITS/ML 10ML VIAL ONE ×2 (06:09→17:43)
[2019-03-20] MEDS: POLYETHYLENE GLYCOL 3350 119 GM BTL PO SCH ×3 (06:12→21:17)
[2019-03-20] MEDS: MAGNESIUM OXIDE 400 MG TABLET (FP) PO SCH ×2 (06:12→14:00)
[2019-03-20] MEDS: hydrALAZINE HCL 25 MG TABLET (FP) PO SCH ×3 (06:12→21:16)
[2019-03-20] MEDS: INSULIN (LEVEMIR) 100 UNITS/ML UNITS SQ SCH ×2 (06:13→21:15)
[2019-03-20] MEDS: INSULIN SLIDING SCALE (NOVOLOG) 1 VIAL SQ SCH ×4 (06:13→21:15)
[2019-03-20] MEDS: DORZOLAMIDE 2% HCL OPHTHALMIC SOLUTION 10 ML BOTTLE OS SCH ×3 (06:16→21:10)
[2019-03-20] MEDS: BRIMONIDINE TARTRATE 0.15% OPHTHALMIC 5 ML BOTTLE OS SCH ×3 (06:24→21:00)
[2019-03-20 07:24] LABS: BASO % 0.7 % (0-2.0); EOS % 4.1 % (0-4.5); HEMATOCRIT 28.7 % (35.4-49); HEMOGLOBIN 9.3 GM/dL (11.7-16.9); LYMPH % 6.1 % (8-40); MCH 31.5 pg (25.7-33.7); MCHC 32.2 g/dl (32.0-35.9); MEAN CELL VOLUME 97.8 fl (80-96); MEAN PLT VOLUME 8.7 fl (7.5-11.1); MONO % 6.5 % (3.8-10.2); NEUT % 82.6 % (42.8-82.8); PLATELET COUNT 300 K/MM3 (134-434); RBC 2.94 M/mm3 (4.00-5.60); RDW 16.1 % (11.9-15.9); WHITE BLOOD COUNT 8.3 K/mm3 (4.0-10.0)
[2019-03-20] MEDS: SEVELAMER CARBONATE 800 MG TAB (FP) PO SCH ×3 (08:26→17:46)
--- NOTE | 2019-03-20 09:05 | PN ---
Progress Note, Physician Chief Complaint: in bed NAD no c/o no CP SOB cough no bleeding H&H stable (received 1 U PRBC) afebrile; Cx negative; heparin held for BRBPR - can restart, seen by GI; on stools softeners - Current Medication List Current Medications: Active Medications Acetaminophen (Tylenol -) 650 mg PO Q6H PRN PRN Reason: FEVER OR PAIN LEVEL 1-5 Last Admin: 03/18/19 21:17 Dose: 650 mg Allopurinol (Zyloprim -) 100 mg PO DAILY [facility] Last Admin: 03/19/19 10:18 Dose: 100 mg Aspirin (Asa -) 81 mg PO DAILY [facility] Last Admin: 03/19/19 10:19 Dose: 81 mg Atorvastatin Calcium (Lipitor -) 80 mg PO HS [facility] Last Admin: 03/19/19 21:23 Dose: 80 mg Bacitracin (Bacitracin -) 1 applic TP Q2D [facility] Last Admin: 03/19/19 10:21 Dose: 1 applic Brimonidine Tartrate (Alphagan 0.15% -) 1 drop OS TID [facility] Last Admin: 03/20/19 06:24 Dose: 1 drop Cinacalcet (Sensipar -) 30 mg PO DAILY [facility] Last Admin: 03/19/19 10:18 Dose: 30 mg Dorzolamide HCl (Trusopt 2%) 1 drop OS TID [facility] Last Admin: 03/20/19 06:16 Dose: 1 drop Ferrous Sulfate (Feosol -) 325 mg PO DAILY [facility] Last Admin: 03/19/19 10:19 Dose: 325 mg Furosemide (Lasix -) 80 mg PO DAILY [facility] Last Admin: 03/19/19 10:18 Dose: 80 mg Heparin Sodium (Porcine) (Heparin -) 5,000 unit SQ BID [facility] Hydralazine HCl (Apresoline -) 25 mg PO TID [facility] Last Admin: 03/20/19 06:12 Dose: 25 mg Sodium Chloride (Normal Saline -) 250 mls @ 3,000 mls/hr IV PRN PRN PRN Reason: Hypotension during Dialysis Stop: 03/19/19 13:11 Sodium Chloride (Normal Saline -) 250 mls @ 3,000 mls/hr IV PRN PRN PRN Reason: Hypotension during Dialysis Stop: 03/19/19 13:13 Insulin Aspart (Novolog Vial Sliding Scale -) 1 vial SQ [facility]; Protocol Last Admin: 03/20/19 06:13 Dose: 2 unit Insulin Detemir (Levemir Vial) 10 units SQ DAILY@0700 [facility] Last Admin: 03/20/19 06:13 Dose: 10 units Insulin Detemir (Levemir Vial) 8 units SQ HS [facility] Last Admin: 03/19/19 21:21 Dose: 8 unit Latanoprost (Xalatan 0.005% Eye Drops -) 1 drop OS [facility] Last Admin: 03/19/19 21:20 Dose: 1 drop Lisinopril (Prinivil) 5 mg PO DAILY [facility] Last Admin: 03/19/19 10:19 Dose: 5 mg Loratadine (Claritin -) 10 mg PO DAILY [facility] Last Admin: 03/19/19 10:19 Dose: 10 mg Magnesium Oxide (Mag-Ox -) 400 mg PO TID [facility] Last Admin: 03/20/19 06:12 Dose: Not Given Pantoprazole Sodium (Protonix -) 20 mg PO DAILY [facility] Last Admin: 03/19/19 10:19 Dose: 20 mg Polyethylene Glycol (Miralax (For Daily Use) -) 17 gm PO TID [facility] Last Admin: 03/20/19 06:12 Dose: 17 gm Senna (Senna -) 2 tab PO PRN PRN Reason: CONSTIPATION Sevelamer Carbonate (Renvela -) 2,400 mg PO CM [facility] Last Admin: 03/20/19 08:26 Dose: 2,400 mg - Objective Vital Signs: Vital Signs Temperature 98.1 F 03/20/19 05:30 Pulse Rate 71 03/20/19 05:30 Respiratory Rate 18 03/20/19 05:30 Blood Pressure 153/88 03/20/19 05:30 O2 Sat by Pulse Oximetry (%) 98 03/19/19 21:00 Constitutional: Yes: No Distress, Calm Eyes: Yes: Conjunctiva Clear HENT: Yes: Atraumatic Neck: Yes: Supple Cardiovascular: Yes: Regular Rate and Rhythm Respiratory: Yes: CTA Bilaterally Gastrointestinal: Yes: Soft. No: Tenderness Genitourinary: No: Hematuria Musculoskeletal: No: Joint Stiffness, Joint Swelling Extremities: No: Cold, Cool, Cyanosis Edema: No Integumentary: No: Rash, Venous Stasis Changes Neurological: Yes: Alert, Oriented ...Motor Strength: WNL Psychiatric: Yes: Alert, Oriented. No: Agitated, Suicidal Ideation Labs: CBC, BMP 03/20/19 06:50 03/18/19 10:30 INR, PTT INR 1.09 (0.83-1.09) 03/14/19 15:46 - ....Imaging Other: Report Reviewed Assessment/Plan 53 yo M with a hx of HTN, HLD, DM, asthma, CHF (normal EF%, poor LV compliance) , ESRD MWF with left AVF, CAD s/p CABG (2010; stent), GERD, and amputation of the left metatarsal presents to the emergency department s/p mechanical fall with right ankle pain. Found to have R ankle fracture, cast placed per ortho; fever - cultures sent negative to date; IV ATB / ID; small amnt RBRPR and chest discomfort: GI and cardio eval; stools softeners; pt will need SNF in a NH with HD when stable pain meds; DVT pfx; d/w pt and staff
[2019-03-20] MEDS: PANTOPRAZOLE 20 MG TABLET PO SCH (10:30)
[2019-03-20] MEDS: FERROUS SO4 325 MG TABLET (FP) PO SCH (10:30)
[2019-03-20] MEDS: ALLOPURINOL 100 MG TABLET (FP) PO SCH (10:30)
[2019-03-20] MEDS: ASPIRIN 81 MG CHEWABLE TABLETS PO SCH (10:30)
[2019-03-20] MEDS: LORATADINE 10 MG TABLET PO SCH (10:30)
[2019-03-20] MEDS: CINACALCET HCL 30 MG TAB (FP) PO SCH (10:31)
[2019-03-20] MEDS: FUROSEMIDE 40 MG TABLET (FP) PO SCH (10:31)
[2019-03-20] MEDS: HEPARIN NA (PORCINE) 5,000 UNITS/ML 1ML VIAL SQ SCH ×2 (10:31→21:15)
[2019-03-20] MEDS: LISINOPRIL 5 MG TABLET (FP) PO SCH (10:31)
--- NOTE | 2019-03-20 11:29 | CON.CARD ---
Consult Consult Specialty:: Cardiology for Dr. Álvarez Referred by:: Paulo Dunbar MD Reason for Consultation:: CAD s/p CABG - History of Present Illness Chief Complaint: Post fall and right ankle fracture History of Present Illness: 53yo male with h/o HTN, DM, CAD s/p CABG, diastolic CHF, ESRD on HD, left TMA presented with mechanical fall fracture of the right distal tibia and fibula post closed reduction, blood streaked stools after straining suspect hemorrhoidal bleeding aggravated by constipation. He denies chest pain, dyspnea , near or true syncope, palpitations, orthopnea, PND or LE edema. - History Source History Provided By: Patient Limitations to Obtaining History: No Limitations - Past Medical History Cardio/Vascular: Yes: CAD (coronary stenting at [facility] following his CABG), CHF ( normal ejection fraction; poor LV compliance; no valvular abnormalities), HTN, Hyperlipdemia, [place] (led to 2 vessel CABG at [facility]) Pulmonary: Yes: Asthma, Pneumonia Gastrointestinal: Yes: GERD, GI Bleed (GE jucntion ulcer in 2010), Other (colon and gastric hyperplastic polyps removed [address] Anne) Renal/: Yes: Renal Failure, Hemodialysis (ESRD on HD MWF via L arm AVF) Infectious Disease: Yes: Other (osteomyelitis left foot amputated) Psych: Yes: Anxiety Musculoskeletal: Yes: Other Rheumatology: Yes: Gout Endocrine: Yes: Diabetes Mellitus Additional Medical History: as above in HPI; L eye blindness; on renal transplant list at [facility]. bilateral detached retinas - Past Surgical History Past Surgical History: Yes: Amputation (Left Transmetatarsal), AV Fistula/Graft (LUE), CABG (05/2010), Colonoscopy, Stent (s/p cardiac cath with stent placement) , Upper Endoscopy Additional Surgical History: left retinal detachment surgery but not successful - Alcohol/Substance Use Hx Alcohol Use: No History of Substance Use: reports: None - Smoking History Smoking history: Never smoked Have you smoked in the past 12 months: No Aproximately how many cigarettes per day: 2 If you are a former smoker, when did you quit?: 1989 - Social History Usual Living Arrangement: With Spouse ADL: Independent 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 History of Recent Travel: No Home Medications - Allergies Allergies/Adverse Reactions: Allergies Allergy/AdvReac Type Severity Reaction Status Date / Time No Known Drug Allergies Allergy Verified 05/13/18 06:32 - Home Medications Home Medications: Ambulatory Orders Allopurinol [Zyloprim -] 100 mg PO DAILY 05/06/18 Aspirin [ASA -] 81 mg PO DAILY 05/06/18 Atorvastatin Calcium 80 mg PO HS 05/06/18 Bimatoprost [Lumigan] 1 drop OS HS 05/06/18 Brimonidine Tartrate [Alphagan 0.15% -] 1 drop OS TID 05/06/18 Brinzolamide [Azopt] 1 drop OS TID 05/06/18 Cinacalcet HCl [Sensipar -] 30 mg PO DAILY 05/06/18 Ferrous Sulfate [Feosol] 325 mg PO DAILY 05/06/18 Furosemide [Lasix -] 80 mg PO DAILY 05/06/18 Hydralazine HCl 50 mg PO TID 05/06/18 Insulin (LOG) Aspart [NovoLOG -] 8 units SQ TID 05/06/18 Insulin Detemir [Levemir Flextouch] 8 unit SQ HS 05/06/18 Levocetirizine Dihydrochloride 10 mg PO DAILY 05/06/18 Insulin (Levemir) [Levemir Vial] 10 units SQ DAILY@0700 units 05/07/18 Sennosides [Senna -] 2 tab PO HS PRN 30 Days #60 tablet MDD 2 05/17/18 Acetaminophen [Tylenol .Regular Strength -] 650 mg PO Q6H PRN tablet 03/20/19 Bacitracin - [Bacitracin Topical Ointment -] 1 applic TP Q2D tube 03/20/19 Heparin - 5,000 unit SQ BID vial 03/20/19 Insulin Sliding Scale [Novolog Vial Sliding Scale -] 1 vial SQ ACHS units 03/20 Lisinopril [Prinivil] 5 mg PO DAILY #30 tab 03/20/19 Magnesium Oxide [Magox 400] 400 mg PO DAILY #30 tab 03/20/19 Omeprazole 20 mg PO DAILY #30 tab 03/20/19 Polyethylene Glycol 3350 [Miralax 119 gm Btl -] 17 gm PO TID PRN 30 Days #30 bottle 03/20/19 Sevelamer Carbonate [Renvela -] 2,400 mg PO CM #30 tab 03/20/19 Tramadol HCl/Acetaminophen [Tramadol-Acetaminophn 37.5-325] 1 each PO DAILY PRN #10 tab 03/20/19 Review of Systems - Review of Systems Musculoskeletal: reports: Extremity Pain Vital Signs: Vital Signs Temperature 98.1 F 03/20/19 05:30 Pulse Rate 71 03/20/19 05:30 Respiratory Rate 18 03/20/19 05:30 Blood Pressure 153/88 03/20/19 05:30 O2 Sat by Pulse Oximetry (%) 98 03/19/19 21:00 Constitutional: Yes: No Distress, Calm Neck: Yes: Supple Respiratory: Yes: Regular, CTA Bilaterally Gastrointestinal: Yes: Normal Bowel Sounds, Soft, Abdomen, Obese Cardiovascular: Yes: Regular Rate and Rhythm JVD: No Carotid Bruit: No Heart Sounds: Yes: S1, S2 Murmur: Yes: Systolic Murmur, Grade 1 Extremities: Yes: Amputation (Left TMA) Edema: No - Other Data Labs, Other Data: CBC, BMP 03/20/19 06:50 03/18/19 10:30 INR, PTT INR 1.09 (0.83-1.09) 03/14/19 15:46 Imaging - Results Cat Scan: Report Reviewed (Stable LLL ATX) Problem List - Problems (1) Closed pilon fracture of right tibia Code(s): S82.871A - DISPLACED PILON FRACTURE OF RIGHT TIBIA, INIT FOR CLOS FX Qualifiers: Encounter type: initial encounter Fracture alignment: displaced Qualified Code(s): S82.871A - Displaced pilon fracture of right tibia, initial encounter for closed fracture (2) Hematochezia Code(s): K92.1 - MELENA (3) ESRD (end stage renal disease) on dialysis Code(s): N18.6 - END STAGE RENAL DISEASE; Z99.2 - DEPENDENCE ON RENAL DIALYSIS (4) DM (diabetes mellitus), type 2 with renal complications Code(s): E11.29 - TYPE 2 DIABETES MELLITUS W OTH DIABETIC KIDNEY COMPLICATION (5) Diabetes mellitus with foot ulcer and gangrene Code(s): E11.621 - TYPE 2 DIABETES MELLITUS WITH FOOT ULCER; L97.509 - NON- PRESSURE CHRONIC ULCER OTH PRT UNSP FOOT W UNSP SEVERITY (6) Diastolic CHF Code(s): I50.30 - UNSPECIFIED DIASTOLIC (CONGESTIVE) HEART FAILURE Qualifiers: Heart failure chronicity: chronic Qualified Code(s): I50.32 - Chronic diastolic (congestive) heart failure (7) ESRD on hemodialysis Code(s): N18.6 - END STAGE RENAL DISEASE; Z99.2 - DEPENDENCE ON RENAL DIALYSIS (8) Elevated cholesterol Code(s): E78.0 - PURE HYPERCHOLESTEROLEMIA * DO NOT USE * (9) Hypertension Code(s): I10 - ESSENTIAL (PRIMARY) HYPERTENSION Qualifiers: Hypertension type: essential hypertension Qualified Code(s): I10 - Essential (primary) hypertension (10) Stented coronary artery Code(s): Z95.5 - PRESENCE OF CORONARY ANGIOPLASTY IMPLANT AND GRAFT (11) Anemia in ESRD (end-stage renal disease) Code(s): N18.6 - END STAGE RENAL DISEASE; D63.1 - ANEMIA IN CHRONIC KIDNEY DISEASE (12) COPD (chronic obstructive pulmonary disease) Code(s): J44.9 - CHRONIC OBSTRUCTIVE PULMONARY DISEASE, UNSPECIFIED (13) GERD (gastroesophageal reflux disease) Code(s): K21.9 - GASTRO-ESOPHAGEAL REFLUX DISEASE WITHOUT ESOPHAGITIS (14) History of [place] (myocardial infarction) Code(s): I25.2 - OLD MYOCARDIAL INFARCTION (15) Hyperlipemia Code(s): E78.5 - HYPERLIPIDEMIA, UNSPECIFIED Qualifiers: Hyperlipidemia type: pure hypercholesterolemia Qualified Code(s): E78.00 - Pure hypercholesterolemia, unspecified; E78.0 - Pure hypercholesterolemia (16) S/P CABG (coronary artery bypass graft) Code(s): Z95.1 - PRESENCE OF AORTOCORONARY BYPASS GRAFT Assessment/Plan Coronary angiogram 09/11/2017: patent CABG grafts; medical management recommended. 10/28/2017 Echo: Normal LV size and fxn, post-op septal movement , mild MR, TR 1. R ankle fracture, post closed reduction 2. CAD s/p CABG (2010; stent) 3. Diastolic dysfunction 4. ESRD MWF with left AVF 5. PAD s/p amputation of the left metatarsal 6. Hypertension 7. Hyperlipidemia 8. Type 2 DM 9. Hemorrhoidal bleeding aggravated by constipation 10. h/o colon and gastric polyps 11. GERD with h/o GE junction ulcer bleed Plan: 1. Continue ASA 81 qd, Lipitor 80 qhs, Lasix 80 qd, Hydralazine 25 tid, lisinopril 5 qd with monitor K, consider addition of beta tosin per primary hvac tech 2. HD per renal 3. Review outpatient stress MIBI results 4. Thank you for consultative opportunity
--- NOTE | 2019-03-20 11:58 | CON.PULM ---
Consult Consult Specialty:: PULMONARY Referred by:: ALVARO Reason for Consultation:: ABNORMAL CT - History of Present Illness Chief Complaint: SOB History of Present Illness: 53 yo M with a hx of HTN, HLD, DM, asthma, CHF (normal EF%, poor LV compliance) , ESRD MWF with left AVF, CAD s/p CABG (2010; stent), GERD, and amputation of the left metatarsal presents to the emergency department s/p mechanical fall shortly after his dialysis treatment with right ankle and knee pain. Per the patient, he walked down a ramp and hyper plantar flexed his right foot and had immediate pain afterwards. I have been asked to eval abnormal ct chest. 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 Cardio/Vascular: Yes: CAD (coronary stenting at [facility] following his CABG), CHF ( normal ejection fraction; poor LV compliance; no valvular abnormalities), HTN, Hyperlipdemia, [place] (led to 2 vessel CABG at [facility]) Pulmonary: Yes: Asthma, Pneumonia Gastrointestinal: Yes: GERD, GI Bleed (GE jucntion ulcer in 2010), Other (colon and gastric hyperplastic polyps removed [address] Anne) Renal/: Yes: Renal Failure, Hemodialysis (ESRD on HD MWF via L arm AVF) Infectious Disease: Yes: Other (osteomyelitis left foot amputated) Psych: Yes: Anxiety Musculoskeletal: Yes: Other Rheumatology: Yes: Gout Endocrine: Yes: Diabetes Mellitus Additional Medical History: as above in HPI; L eye blindness; on renal transplant list at [facility]. bilateral detached retinas - Past Surgical History Past Surgical History: Yes: Amputation (Left Transmetatarsal), AV Fistula/Graft (LUE), CABG (05/2010), Colonoscopy, Stent (s/p cardiac cath with stent placement) , Upper Endoscopy Additional Surgical History: left retinal detachment surgery but not successful - Alcohol/Substance Use Hx Alcohol Use: No History of Substance Use: reports: None - Smoking History Smoking history: Never smoked Have you smoked in the past 12 months: No Aproximately how many cigarettes per day: 2 If you are a former smoker, when did you quit?: 1989 - Social History Usual Living Arrangement: With Spouse ADL: Independent 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 History of Recent Travel: No Home Medications - Allergies Allergies/Adverse Reactions: Allergies Allergy/AdvReac Type Severity Reaction Status Date / Time No Known Drug Allergies Allergy Verified 05/13/18 06:32 - Home Medications Home Medications: Ambulatory Orders Allopurinol [Zyloprim -] 100 mg PO DAILY 05/06/18 Aspirin [ASA -] 81 mg PO DAILY 05/06/18 Atorvastatin Calcium 80 mg PO HS 05/06/18 Bimatoprost [Lumigan] 1 drop OS HS 05/06/18 Brimonidine Tartrate [Alphagan 0.15% -] 1 drop OS TID 05/06/18 Brinzolamide [Azopt] 1 drop OS TID 05/06/18 Cinacalcet HCl [Sensipar -] 30 mg PO DAILY 05/06/18 Ferrous Sulfate [Feosol] 325 mg PO DAILY 05/06/18 Furosemide [Lasix -] 80 mg PO DAILY 05/06/18 Hydralazine HCl 50 mg PO TID 05/06/18 Insulin (LOG) Aspart [NovoLOG -] 8 units SQ TID 05/06/18 Insulin Detemir [Levemir Flextouch] 8 unit SQ HS 05/06/18 Levocetirizine Dihydrochloride 10 mg PO DAILY 05/06/18 Insulin (Levemir) [Levemir Vial] 10 units SQ DAILY@0700 units 05/07/18 Sennosides [Senna -] 2 tab PO HS PRN 30 Days #60 tablet MDD 2 05/17/18 Acetaminophen [Tylenol .Regular Strength -] 650 mg PO Q6H PRN tablet 03/20/19 Bacitracin - [Bacitracin Topical Ointment -] 1 applic TP Q2D tube 03/20/19 Heparin - 5,000 unit SQ BID vial 03/20/19 Insulin Sliding Scale [Novolog Vial Sliding Scale -] 1 vial SQ ACHS units 03/20 Lisinopril [Prinivil] 5 mg PO DAILY #30 tab 03/20/19 Magnesium Oxide [Magox 400] 400 mg PO DAILY #30 tab 03/20/19 Omeprazole 20 mg PO DAILY #30 tab 03/20/19 Polyethylene Glycol 3350 [Miralax 119 gm Btl -] 17 gm PO TID PRN 30 Days #30 bottle 03/20/19 Sevelamer Carbonate [Renvela -] 2,400 mg PO CM #30 tab 03/20/19 Tramadol HCl/Acetaminophen [Tramadol-Acetaminophn 37.5-325] 1 each PO DAILY PRN #10 tab 03/20/19 Family Medical History Family History: Unremarkable Review of Systems - Review of Systems Respiratory: reports: SOB on Exertion. denies: SOB Physical Exam Vital Sings: Vital Signs Temperature 98.1 F 03/20/19 05:30 Pulse Rate 71 03/20/19 05:30 Respiratory Rate 18 03/20/19 05:30 Blood Pressure 153/88 03/20/19 05:30 O2 Sat by Pulse Oximetry (%) 98 03/19/19 21:00 Constitutional: Yes: Calm Eyes: Yes: EOM Intact HENT: Yes: Normocephalic Neck: Yes: Trachea Midline Cardiovascular: Yes: S1, S2 Respiratory: Yes: Diminished (bilateral bases) Gastrointestinal: Yes: Abdomen, Obese Extremities: Yes: Amputation Labs: CBC, BMP 03/20/19 06:50 03/18/19 10:30 Imaging - Results Chest X-ray: Report Reviewed, Image Reviewed Cat Scan: Report Reviewed, Image Reviewed Problem List - Problems (1) Closed pilon fracture of right tibia Code(s): S82.871A - DISPLACED PILON FRACTURE OF RIGHT TIBIA, INIT FOR CLOS FX Qualifiers: Encounter type: initial encounter Fracture alignment: displaced Qualified Code(s): S82.871A - Displaced pilon fracture of right tibia, initial encounter for closed fracture (2) ESRD (end stage renal disease) on dialysis Code(s): N18.6 - END STAGE RENAL DISEASE; Z99.2 - DEPENDENCE ON RENAL DIALYSIS (3) Accidental fall Code(s): W19.XXXA - UNSPECIFIED FALL, INITIAL ENCOUNTER Qualifiers: Encounter type: initial encounter Qualified Code(s): W19.XXXA - Unspecified fall, initial encounter (4) DM (diabetes mellitus), type 2 with renal complications Code(s): E11.29 - TYPE 2 DIABETES MELLITUS W OTH DIABETIC KIDNEY COMPLICATION (5) Diastolic CHF Code(s): I50.30 - UNSPECIFIED DIASTOLIC (CONGESTIVE) HEART FAILURE (6) Pleural effusion Code(s): J90 - PLEURAL EFFUSION, NOT ELSEWHERE CLASSIFIED Assessment/Plan CT CHEST CHANGES APPEAR CHRONIC PARTICULARLY LEFT PLEURAL EFFUSION RIGHT SIDED CHANGES APPEAR SUBACUTE WOULD FOLLOW CT CHEST 6-8 WEEKS POST DISCHARGE NO DIAGNOSTIC LUNG PROCEDURE INDICATED AT THIS TIME Fawad DAMON MD
[2019-03-20] MEDS: ATORVASTATIN CA 80 MG TABLET (FP) PO SCH (21:16)
[2019-03-20] MEDS: LATANOPROST 0.005% OPHTH SOLN 2.5ML BOTTLE OS SCH (21:24)
[2019-03-21] MEDS: ACETAMINOPHEN 325 MG TABLET (FP) PO PRN (04:00)
[2019-03-21] MEDS: BRIMONIDINE TARTRATE 0.15% OPHTHALMIC 5 ML BOTTLE OS SCH ×3 (05:37→21:30)
[2019-03-21] MEDS: hydrALAZINE HCL 25 MG TABLET (FP) PO SCH ×3 (05:37→21:44)
[2019-03-21] MEDS: POLYETHYLENE GLYCOL 3350 119 GM BTL PO SCH ×3 (05:38→21:46)
[2019-03-21] MEDS: DORZOLAMIDE 2% HCL OPHTHALMIC SOLUTION 10 ML BOTTLE OS SCH ×3 (06:02→21:40)
[2019-03-21] MEDS: INSULIN (LEVEMIR) 100 UNITS/ML UNITS SQ SCH ×2 (06:07→21:49)
[2019-03-21] MEDS: INSULIN SLIDING SCALE (NOVOLOG) 1 VIAL SQ SCH ×4 (06:07→21:46)
--- NOTE | 2019-03-21 09:02 | DS ---
Physical Examination Vital Signs: Vital Signs Temperature 97.8 F 03/21/19 04:38 Pulse Rate 90 03/21/19 04:38 Respiratory Rate 20 03/21/19 04:38 Blood Pressure 127/70 03/21/19 04:38 O2 Sat by Pulse Oximetry (%) 97 03/20/19 21:00 Findings/Remarks: no new c/o no CP SOB cough no GI bleed; had some constipation resolved; consults reviewed and d/w pt; needs f/u chest CT in1 month d/w pt in bed NAD d/w cardio OK to be DC to SNF NH f/u as needed d/w pt (cardio, pulm, ortho, GI, PCP and renal) Constitutional: Yes: No Distress, Calm Eyes: Yes: Conjunctiva Clear HENT: Yes: Atraumatic Neck: Yes: Supple Cardiovascular: Yes: Regular Rate and Rhythm Respiratory: Yes: CTA Bilaterally Gastrointestinal: Yes: Soft. No: Tenderness Musculoskeletal: No: Joint Stiffness, Joint Swelling Extremities: Yes: Other (RLE cast). No: Cold, Cool Edema: No Integumentary: No: Rash, Venous Stasis Changes Neurological: Yes: WNL, Alert, Oriented ...Motor Strength: WNL Psychiatric: Yes: WNL, Alert, Oriented. No: Agitated, Suicidal Ideation Labs: CBC, BMP 03/20/19 06:50 03/18/19 10:30 Discharge Summary Problems reviewed: Yes Reason For Visit: FRACTURE OF ANKLE Current Active Problems Closed pilon fracture of right tibia (Acute) Colon polyp, hyperplastic (Acute) Constipation (Acute) Gastric polyp (Acute) Hematochezia (Acute) ESRD (end stage renal disease) on dialysis (Chronic) Procedures: Principal: 53 YOM ASHD HTN DM ESRD / HD - s/p mechanical fall R ankle fracture seen by ortho - cast placed; Other Procedures: developed constipation and lower GI bleed and atypical CP; had GI, cardiology and pulmonary consults; chest CT c/w pleural thickening and chronic effusion, needs f/u chest CT in 1-2 months; Hospital Course: improved with above; transfer to SNF - ortho f/u for R ankle fracture, cast per ortho; will need f/u with all the above drs; dialysis per renal. Falls PFX Condition: Improved - Instructions Diet, Activity, Other Instructions: f/u PCP and ortho in 2-4 weeks after DC cast RLE for 4 weeks total per ortho, see ortho in NH / SNF cardio, pulm, GI f/u after DC from NH/SNF repeat chest CT in 1-2 month after DC from (in April) d/w pt; HD per renal; falls, DVT< decubs prophylaxis d/w pt the above Referrals: Paulo Dunbar MD [Primary Care Provider] - Jeff Wagner MD [Staff Physician] - Kashif Anne DO [Staff Physician] - Bernard Julian MD [Staff Physician] - José Manuel Álvarez MD [Staff Physician] - Antwan Hurley MD [Staff Physician] - Disposition: [facility] - Home Medications Comprehensive Discharge Medication List: Ambulatory Orders Allopurinol [Zyloprim -] 100 mg PO DAILY 05/06/18 Aspirin [ASA -] 81 mg PO DAILY 05/06/18 Atorvastatin Calcium 80 mg PO HS 05/06/18 Bimatoprost [Lumigan] 1 drop OS HS 05/06/18 Brimonidine Tartrate [Alphagan 0.15% -] 1 drop OS TID 05/06/18 Brinzolamide [Azopt] 1 drop OS TID 05/06/18 Cinacalcet HCl [Sensipar -] 30 mg PO DAILY 05/06/18 Ferrous Sulfate [Feosol] 325 mg PO DAILY 05/06/18 Furosemide [Lasix -] 80 mg PO DAILY 05/06/18 Hydralazine HCl 50 mg PO TID 05/06/18 Insulin (LOG) Aspart [NovoLOG -] 8 units SQ TID 05/06/18 Insulin Detemir [Levemir Flextouch] 8 unit SQ HS 05/06/18 Levocetirizine Dihydrochloride 10 mg PO DAILY 05/06/18 Insulin (Levemir) [Levemir Vial] 10 units SQ DAILY@0700 units 05/07/18 Sennosides [Senna -] 2 tab PO HS PRN 30 Days #60 tablet MDD 2 05/17/18 Acetaminophen [Tylenol .Regular Strength -] 650 mg PO Q6H PRN tablet 03/20/19 Bacitracin - [Bacitracin Topical Ointment -] 1 applic TP Q2D tube 01/26/20 Heparin - 5,000 unit SQ BID vial 03/20/19 Insulin Sliding Scale [Novolog Vial Sliding Scale -] 1 vial SQ ACHS units 03/20 Lisinopril [Prinivil] 5 mg PO DAILY #30 tab 03/20/19 Magnesium Oxide [Magox 400] 400 mg PO DAILY #30 tab 03/20/19 Omeprazole 20 mg PO DAILY #30 tab 03/20/19 Polyethylene Glycol 3350 [Miralax 119 gm Btl -] 17 gm PO TID PRN 30 Days #30 bottle 03/20/19 Sevelamer Carbonate [Renvela -] 2,400 mg PO CM #30 tab 03/20/19 Tramadol HCl/Acetaminophen [Tramadol-Acetaminophn 37.5-325] 1 each PO DAILY PRN #10 tab 03/20/19
--- NOTE | 2019-03-21 10:17 | PN ---
Progress Note, Physician History of Present Illness: 53yo male with h/o HTN, DM, CAD s/p CABG, diastolic CHF, ESRD on HD, left TMA presented with mechanical fall fracture of the right distal tibia and fibula post closed reduction, blood streaked stools after straining suspect hemorrhoidal bleeding aggravated by constipation. He denies chest pain, dyspnea , near or true syncope, palpitations, orthopnea, PND or LE edema. - Current Medication List Current Medications: Active Medications Acetaminophen (Tylenol -) 650 mg PO Q6H PRN PRN Reason: FEVER OR PAIN LEVEL 1-5 Last Admin: 03/21/19 04:00 Dose: 650 mg Allopurinol (Zyloprim -) 100 mg PO DAILY [facility] Last Admin: 03/20/19 10:30 Dose: 100 mg Aspirin (Asa -) 81 mg PO DAILY [facility] Last Admin: 03/20/19 10:30 Dose: 81 mg Atorvastatin Calcium (Lipitor -) 80 mg PO HS [facility] Last Admin: 03/20/19 21:16 Dose: 80 mg Bacitracin (Bacitracin -) 1 applic TP Q2D [facility] Last Admin: 03/19/19 10:21 Dose: 1 applic Brimonidine Tartrate (Alphagan 0.15% -) 1 drop OS TID [facility] Last Admin: 03/21/19 05:37 Dose: 1 drop Cinacalcet (Sensipar -) 30 mg PO DAILY [facility] Last Admin: 03/20/19 10:31 Dose: 30 mg Dorzolamide HCl (Trusopt 2%) 1 drop OS TID [facility] Last Admin: 03/21/19 06:02 Dose: 1 drop Ferrous Sulfate (Feosol -) 325 mg PO DAILY [facility] Last Admin: 03/20/19 10:30 Dose: 325 mg Furosemide (Lasix -) 80 mg PO DAILY [facility] Last Admin: 03/20/19 10:31 Dose: 80 mg Heparin Sodium (Porcine) (Heparin -) 5,000 unit SQ BID [facility] Last Admin: 03/20/19 21:15 Dose: 5,000 unit Hydralazine HCl (Apresoline -) 25 mg PO TID [facility] Last Admin: 03/21/19 05:37 Dose: 25 mg Sodium Chloride (Normal Saline -) 250 mls @ 3,000 mls/hr IV PRN PRN PRN Reason: Hypotension during Dialysis Stop: 03/19/19 13:13 Insulin Aspart (Novolog Vial Sliding Scale -) 1 vial SQ [facility]; Protocol Last Admin: 03/21/19 06:07 Dose: 4 unit Insulin Detemir (Levemir Vial) 10 units SQ DAILY@0700 [facility] Last Admin: 03/21/19 06:07 Dose: 10 units Insulin Detemir (Levemir Vial) 8 units SQ HS [facility] Last Admin: 03/20/19 21:15 Dose: 8 unit Latanoprost (Xalatan 0.005% Eye Drops -) 1 drop OS HS [facility] Last Admin: 03/20/19 21:24 Dose: 1 drop Lisinopril (Prinivil) 5 mg PO DAILY [facility] Last Admin: 03/20/19 10:31 Dose: 5 mg Loratadine (Claritin -) 10 mg PO DAILY [facility] Last Admin: 03/20/19 10:30 Dose: 10 mg Magnesium Oxide (Mag-Ox -) 400 mg PO DAILY [facility] Last Admin: 03/20/19 14:00 Dose: 400 mg Pantoprazole Sodium (Protonix -) 20 mg PO DAILY [facility] Last Admin: 03/20/19 10:30 Dose: 20 mg Polyethylene Glycol (Miralax (For Daily Use) -) 17 gm PO TID [facility] Last Admin: 03/21/19 05:38 Dose: 17 gm Senna (Senna -) 2 tab PO HS PRN PRN Reason: CONSTIPATION Sevelamer Carbonate (Renvela -) 2,400 mg PO CM [facility] Last Admin: 03/20/19 17:46 Dose: 2,400 mg - Objective Vital Signs: Vital Signs Temperature 97.8 F 03/21/19 04:38 Pulse Rate 90 03/21/19 04:38 Respiratory Rate 20 03/21/19 04:38 Blood Pressure 127/70 03/21/19 04:38 O2 Sat by Pulse Oximetry (%) 97 03/20/19 21:00 Eyes: Yes: WNL, Conjunctiva Clear, EOM Intact HENT: Yes: WNL, Atraumatic, Normocephalic Neck: Yes: WNL, Supple, Trachea Midline Cardiovascular: Yes: WNL, Regular Rate and Rhythm Respiratory: Yes: WNL, Regular, CTA Bilaterally Gastrointestinal: Yes: WNL, Normal Bowel Sounds Genitourinary: Yes: WNL Musculoskeletal: Yes: WNL Extremities: Yes: Amputation (L TMA) Edema: No Integumentary: Yes: WNL Neurological: Yes: WNL, Alert, Oriented ...Motor Strength: WNL Psychiatric: Yes: WNL Labs: CBC, BMP 03/20/19 06:50 03/18/19 10:30 INR, PTT INR 1.09 (0.83-1.09) 03/14/19 15:46 Problem List - Problems (1) Closed pilon fracture of right tibia Code(s): S82.871A - DISPLACED PILON FRACTURE OF RIGHT TIBIA, INIT FOR CLOS FX Qualifiers: Encounter type: initial encounter Fracture alignment: displaced Qualified Code(s): S82.871A - Displaced pilon fracture of right tibia, initial encounter for closed fracture (2) Colon polyp, hyperplastic Code(s): K63.5 - POLYP OF COLON (3) Constipation Code(s): K59.00 - CONSTIPATION, UNSPECIFIED (4) Gastric polyp Code(s): K31.7 - POLYP OF STOMACH AND DUODENUM (5) Hematochezia Code(s): K92.1 - MELENA (6) ESRD (end stage renal disease) on dialysis Code(s): N18.6 - END STAGE RENAL DISEASE; Z99.2 - DEPENDENCE ON RENAL DIALYSIS (7) Abdominal pain Code(s): R10.9 - UNSPECIFIED ABDOMINAL PAIN Qualifiers: Abdominal location: right lower quadrant Qualified Code(s): R10.31 - Right lower quadrant pain (8) 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A (9) Accidental fall Code(s): W19.XXXA - UNSPECIFIED FALL, INITIAL ENCOUNTER Qualifiers: Encounter type: initial encounter Qualified Code(s): W19.XXXA - Unspecified fall, initial encounter (10) Acute bronchitis Code(s): J20.9 - ACUTE BRONCHITIS, UNSPECIFIED (11) Acute gastroenteritis Code(s): K52.9 - NONINFECTIVE GASTROENTERITIS AND COLITIS, UNSPECIFIED (12) Acute hyperkalemia Code(s): E87.5 - HYPERKALEMIA (13) Anemia Code(s): D64.9 - ANEMIA, UNSPECIFIED (14) Arteriovenous fistula infection Code(s): T82.7XXA - INFECT/INFLM REACT D/T OTH CARDI/VASC DEV/IMPLNT/GRFT, INIT (15) Atypical chest pain Code(s): R07.89 - OTHER CHEST PAIN (16) Back pain Code(s): M54.9 - DORSALGIA, UNSPECIFIED (17) Bacteremia Code(s): R78.81 - BACTEREMIA (18) Bacteremia due to Gram-positive bacteria Code(s): A49.9 - BACTERIAL INFECTION, UNSPECIFIED (19) Bleeding Code(s): R58 - HEMORRHAGE, NOT ELSEWHERE CLASSIFIED (20) Bleeding from wound Code(s): T14.8XXA - OTHER INJURY OF UNSPECIFIED BODY REGION, INITIAL ENCOUNTER (21) CHF exacerbation Code(s): I50.9 - HEART FAILURE, UNSPECIFIED (22) COPD exacerbation Code(s): J44.1 - CHRONIC OBSTRUCTIVE PULMONARY DISEASE W (ACUTE) EXACERBATION (23) CRF (chronic renal failure) Code(s): N18.9 - CHRONIC KIDNEY DISEASE, UNSPECIFIED (24) Chest pain Code(s): R07.9 - CHEST PAIN, UNSPECIFIED (25) Chest pain, midsternal Code(s): R07.89 - OTHER CHEST PAIN (26) Chronic GERD Code(s): K21.9 - GASTRO-ESOPHAGEAL REFLUX DISEASE WITHOUT ESOPHAGITIS (27) Chronic osteomyelitis of cervical spine Code(s): M46.22 - OSTEOMYELITIS OF [place], CERVICAL REGION (28) Conjunctivitis Code(s): H10.9 - UNSPECIFIED CONJUNCTIVITIS (29) Contusion of right knee Code(s): S80.01XA - CONTUSION OF RIGHT KNEE, INITIAL ENCOUNTER Qualifiers: Encounter type: initial encounter Qualified Code(s): S80.01XA - Contusion of right knee, initial encounter (30) Cough Code(s): R05 - COUGH (31) DM (diabetes mellitus), type 2 with renal complications Code(s): E11.29 - TYPE 2 DIABETES MELLITUS W OTH DIABETIC KIDNEY COMPLICATION (32) DVT prophylaxis Code(s): [id number] - (33) Dehydration Code(s): E86.0 - DEHYDRATION (34) Depression Code(s): F32.9 - MAJOR DEPRESSIVE DISORDER, SINGLE EPISODE, UNSPECIFIED (35) Diabetes mellitus with foot ulcer and gangrene Code(s): E11.621 - TYPE 2 DIABETES MELLITUS WITH FOOT ULCER; L97.509 - NON- PRESSURE CHRONIC ULCER OTH PRT UNSP FOOT W UNSP SEVERITY (36) Diastolic CHF Code(s): I50.30 - UNSPECIFIED DIASTOLIC (CONGESTIVE) HEART FAILURE Qualifiers: Heart failure chronicity: chronic Qualified Code(s): I50.32 - Chronic diastolic (congestive) heart failure (37) ESRD (end stage renal disease) Code(s): N18.6 - END STAGE RENAL DISEASE (38) ESRD needing dialysis Code(s): N18.6 - END STAGE RENAL DISEASE (39) ESRD on hemodialysis Code(s): N18.6 - END STAGE RENAL DISEASE; Z99.2 - DEPENDENCE ON RENAL DIALYSIS (40) Elevated cholesterol Code(s): E78.0 - PURE HYPERCHOLESTEROLEMIA * DO NOT USE * (41) Elevated troponin I level Code(s): R79.89 - OTHER SPECIFIED ABNORMAL FINDINGS OF BLOOD CHEMISTRY (42) Epigastric abdominal pain Code(s): R10.13 - EPIGASTRIC PAIN (43) Epistaxis Code(s): R04.0 - EPISTAXIS (44) Fall Code(s): W19.XXXA - UNSPECIFIED FALL, INITIAL ENCOUNTER (45) Fever Code(s): R50.9 - FEVER, UNSPECIFIED (46) Gout Code(s): M10.9 - GOUT, UNSPECIFIED (47) HTN (hypertension), malignant Code(s): I10 - ESSENTIAL (PRIMARY) HYPERTENSION (48) Hematoma of left iliopsoas muscle Code(s): S70.12XA - CONTUSION OF LEFT THIGH, INITIAL ENCOUNTER (49) Hemorrhage of arteriovenous fistula Code(s): T82.838A - HEMORRHAGE DUE TO VASCULAR PROSTH DEV/GRFT, INIT Qualifiers: Encounter type: initial encounter Qualified Code(s): T82.838A - Hemorrhage due to vascular prosthetic devices, implants and grafts, initial encounter (50) Hemorrhage of surgically-created arteriovenous fistula Code(s): T82.838A - HEMORRHAGE DUE TO VASCULAR PROSTH DEV/GRFT, INIT Qualifiers: Encounter type: initial encounter Qualified Code(s): T82.838A - Hemorrhage due to vascular prosthetic devices, implants and grafts, initial encounter (51) History of hyperkeratosis of skin Code(s): Z87.2 - PERSONAL HISTORY OF DISEASES OF THE SKIN, SUBCU (52) Hyperglycemia Code(s): R73.9 - HYPERGLYCEMIA, UNSPECIFIED (53) Hyperkalemia Code(s): E87.5 - HYPERKALEMIA (54) Hyperphosphatemia Code(s): E83.39 - OTHER DISORDERS OF PHOSPHORUS METABOLISM (55) Hypertension Code(s): I10 - ESSENTIAL (PRIMARY) HYPERTENSION Qualifiers: Hypertension type: essential hypertension Qualified Code(s): I10 - Essential (primary) hypertension (56) Hypomagnesemia Code(s): E83.42 - HYPOMAGNESEMIA (57) Hyponatremia Code(s): E87.1 - HYPO-OSMOLALITY AND HYPONATREMIA (58) Hypotension of hemodialysis Code(s): I95.3 - HYPOTENSION OF HEMODIALYSIS (59) Influenza Code(s): J11.1 - FLU DUE TO UNIDENTIFIED INFLUENZA VIRUS W OTH RESP MANIFEST (60) Knee injury Code(s): S89.90XA - UNSPECIFIED INJURY OF UNSPECIFIED LOWER LEG, INIT ENCNTR Qualifiers: Encounter type: initial encounter Laterality: right Qualified Code(s): S89.91XA - Unspecified injury of right lower leg, initial encounter (61) Knee pain Code(s): M25.569 - PAIN IN UNSPECIFIED KNEE Qualifiers: Chronicity: unspecified Laterality: right Qualified Code(s): M25.561 - Pain in right knee (62) MRSA (methicillin resistant staph aureus) culture positive Code(s): Z22.322 - CARRIER OR SUSPECTED CARRIER OF METHICILLIN RESIS STAPH (63) MRSA bacteremia Code(s): R78.81 - BACTEREMIA (64) MSSA (methicillin susceptible Staphylococcus aureus) infection Code(s): A49.01 - METHICILLIN SUSCEP STAPH INFECTION, UNSP SITE (65) Neck pain Code(s): M54.2 - CERVICALGIA (66) Nondisplaced transverse fracture of right patella, initial encounter for closed fracture Code(s): S82.034A - NONDISPLACED TRANSVERSE FRACTURE OF RIGHT PATELLA, INIT (67) Obesity (BMI 30-39.9) Code(s): E66.9 - OBESITY, UNSPECIFIED (68) Open wound of left foot Code(s): S91.302A - UNSPECIFIED OPEN WOUND, LEFT FOOT, INITIAL ENCOUNTER Qualifiers: Encounter type: subsequent encounter Qualified Code(s): S91.302D - Unspecified open wound, left foot, subsequent encounter (69) Osteomyelitis Code(s): M86.9 - OSTEOMYELITIS, UNSPECIFIED (70) Osteomyelitis of cervical spine Code(s): M46.22 - OSTEOMYELITIS OF [place], CERVICAL REGION (71) Osteomyelitis of left foot Code(s): M86.9 - OSTEOMYELITIS, UNSPECIFIED (72) Pain Code(s): R52 - PAIN, UNSPECIFIED (73) Pleural effusion Code(s): J90 - PLEURAL EFFUSION, NOT ELSEWHERE CLASSIFIED (74) Pneumonia Code(s): J18.9 - PNEUMONIA, UNSPECIFIED ORGANISM Qualifiers: Pneumonia type: due to unspecified organism (75) Posterior neck pain Code(s): M54.2 - CERVICALGIA (76) Renal failure Code(s): N19 - UNSPECIFIED KIDNEY FAILURE (77) Sepsis Code(s): A41.9 - SEPSIS, UNSPECIFIED ORGANISM Qualifiers: Sepsis type: sepsis due to unspecified organism Qualified Code(s): A41.9 - Sepsis, unspecified organism (78) Shoulder injury Code(s): S49.90XA - UNSP INJURY OF SHOULDER AND UPPER ARM, UNSP ARM, INIT ENCNTR Qualifiers: Encounter type: initial encounter Laterality: unspecified laterality Qualified Code(s): S49.90XA - Unspecified injury of shoulder and upper arm, unspecified arm, initial encounter (79) Stented coronary artery Code(s): Z95.5 - PRESENCE OF CORONARY ANGIOPLASTY IMPLANT AND GRAFT (80) Syncope Code(s): R55 - SYNCOPE AND COLLAPSE Qualifiers: Syncope type: unspecified Qualified Code(s): R55 - Syncope and collapse (81) Systolic and diastolic CHF, chronic Code(s): I50.42 - CHRONIC COMBINED SYSTOLIC AND DIASTOLIC HRT FAIL (82) Uncontrolled diabetes mellitus Code(s): E11.65 - TYPE 2 DIABETES MELLITUS WITH HYPERGLYCEMIA (83) Upper abdominal pain Code(s): R10.10 - UPPER ABDOMINAL PAIN, UNSPECIFIED (84) Urinary tract infection Code(s): N39.0 - URINARY TRACT INFECTION, SITE NOT SPECIFIED (85) Weakness Code(s): R53.1 - WEAKNESS (86) Wound infection Code(s): T14.8 - OTHER INJURY OF UNSPECIFIED BODY REGION * DO NOT USE *; L08.9 - LOCAL INFECTION OF THE SKIN AND SUBCUTANEOUS TISSUE, UNSP (88) Anemia in ESRD (end-stage renal disease) Code(s): N18.6 - END STAGE RENAL DISEASE; D63.1 - ANEMIA IN CHRONIC KIDNEY DISEASE (89) Asthma Code(s): J45.909 - UNSPECIFIED ASTHMA, UNCOMPLICATED (90) CAD (coronary artery disease) Code(s): I25.10 - ATHSCL HEART DISEASE OF [place] CORONARY ARTERY W/O ANG PCTRS (91) CHF (congestive heart failure) Code(s): I50.9 - HEART FAILURE, UNSPECIFIED (92) COPD (chronic obstructive pulmonary disease) Code(s): J44.9 - CHRONIC OBSTRUCTIVE PULMONARY DISEASE, UNSPECIFIED (93) Diabetes mellitus Code(s): E11.9 - TYPE 2 DIABETES MELLITUS WITHOUT COMPLICATIONS Qualifiers: Diabetes mellitus type: type 2 Diabetes mellitus complication status: with kidney complications Diabetes mellitus complication detail: with chronic kidney disease (94) GERD (gastroesophageal reflux disease) Code(s): K21.9 - GASTRO-ESOPHAGEAL REFLUX DISEASE WITHOUT ESOPHAGITIS (95) History of AL (myocardial infarction) Code(s): I25.2 - OLD MYOCARDIAL INFARCTION (96) History of coronary artery bypass graft Code(s): Z95.1 - PRESENCE OF AORTOCORONARY BYPASS GRAFT (97) Hyperlipemia Code(s): E78.5 - HYPERLIPIDEMIA, UNSPECIFIED Qualifiers: Hyperlipidemia type: pure hypercholesterolemia Qualified Code(s): E78.00 - Pure hypercholesterolemia, unspecified; E78.0 - Pure hypercholesterolemia (98) S/P CABG (coronary artery bypass graft) Code(s): Z95.1 - PRESENCE OF AORTOCORONARY BYPASS GRAFT Assessment/Plan Assessment/Plan Coronary angiogram 09/11/2017: patent CABG grafts; medical management recommended. 10/28/2017 Echo: Normal LV size and fxn, post-op septal movement , mild MR, TR 1. R ankle fracture, post closed reduction 2. CAD s/p CABG (2010; stent) 3. Diastolic dysfunction 4. ESRD MWF with left AVF 5. PAD s/p amputation of the left metatarsal 6. Hypertension 7. Hyperlipidemia 8. Type 2 DM 9. Hemorrhoidal bleeding aggravated by constipation 10. h/o colon and gastric polyps 11. GERD with h/o GE junction ulcer bleed Plan: 1. Continue ASA 81 qd, Lipitor 80 qhs, Lasix 80 qd, Hydralazine 25 tid, lisinopril 5 qd with monitor K, consider addition of beta tosin . 2. HD per renal 3. Review outpatient stress MIBI results
[2019-03-21] MEDS ORDERED: SODIUM CHLORIDE 250 ML IV PRN ×2 (10:45→10:53)
[2019-03-21] MEDS: HEPARIN NA (PORCINE) 5,000 UNITS/ML 1ML VIAL IVPUSH SCH ×3 (10:45→12:45)
[2019-03-21] MEDS ORDERED: EPOETIN ALFA 10,000 UNIT/1 ML VIAL SQ ONE (11:00)
[2019-03-21 11:59] LABS: BASO % 0.5 % (0-2.0); EOS % 3.9 % (0-4.5); HEMATOCRIT 25.4 % (35.4-49); HEMOGLOBIN 8.2 GM/dL (11.7-16.9); LYMPH % 7.8 % (8-40); MCH 30.8 pg (25.7-33.7); MCHC 32.2 g/dl (32.0-35.9); MEAN CELL VOLUME 95.7 fl (80-96); MEAN PLT VOLUME 8.7 fl (7.5-11.1); NEUT % 80.8 % (42.8-82.8); PLATELET COUNT 292 K/MM3 (134-434); RBC 2.65 M/mm3 (4.00-5.60); RDW 15.7 % (11.9-15.9); WHITE BLOOD COUNT 6.4 K/mm3 (4.0-10.0)
--- NOTE | 2019-03-21 12:09 | PN ---
Progress Note (short form) - Note Progress Note: Renal follow up for ESRD on HD Seen and examined while on dialysis awake and alert BP stable, access with good flow goal UF is 3.5L pt offers no acute complaints Vital Signs Temperature 98.5 F 03/21/19 11:05 Pulse Rate 80 03/21/19 11:10 Respiratory Rate 18 03/21/19 11:10 Blood Pressure 127/65 03/21/19 11:10 O2 Sat by Pulse Oximetry (%) 97 03/20/19 21:00 Intake & Output 03/18/19 03/19/19 03/20/19 03/21/19 23:59 23:59 23:59 23:59 Intake Total 1470 1800 580 860 Output Total 2500 2600 Balance -1030 -800 580 860 Weight 100.244 kg 107.7 kg 104.326 kg 104.78 kg NAD RRR, no M/R CTA, no rales or wheeze soft, obese, NT/ND no LE edema left arm AVF Right leg in cast CBC, BMP 03/21/19 11:20 Current Medications Acetaminophen (Tylenol -) 650 mg PO Q6H PRN PRN Reason: FEVER OR PAIN LEVEL 1-5 Last Admin: 03/21/19 04:00 Dose: 650 mg Allopurinol (Zyloprim -) 100 mg PO DAILY [facility] Last Admin: 03/20/19 10:30 Dose: 100 mg Aspirin (Asa -) 81 mg PO DAILY [facility] Last Admin: 03/20/19 10:30 Dose: 81 mg Atorvastatin Calcium (Lipitor -) 80 mg PO HS [facility] Last Admin: 03/20/19 21:16 Dose: 80 mg Bacitracin (Bacitracin -) 1 applic TP Q2D [facility] Last Admin: 03/19/19 10:21 Dose: 1 applic Brimonidine Tartrate (Alphagan 0.15% -) 1 drop OS TID [facility] Last Admin: 03/21/19 05:37 Dose: 1 drop Cinacalcet (Sensipar -) 30 mg PO DAILY [facility] Last Admin: 03/20/19 10:31 Dose: 30 mg Dorzolamide HCl (Trusopt 2%) 1 drop OS TID [facility] Last Admin: 03/21/19 06:02 Dose: 1 drop Ferrous Sulfate (Feosol -) 325 mg PO DAILY [facility] Last Admin: 03/20/19 10:30 Dose: 325 mg Furosemide (Lasix -) 80 mg PO DAILY [facility] Last Admin: 03/20/19 10:31 Dose: 80 mg Heparin Sodium (Porcine) (Heparin -) 5,000 unit SQ BID [facility] Last Admin: 03/20/19 21:15 Dose: 5,000 unit Heparin Sodium (Porcine) (Heparin -) 300 unit IVPUSH Q1H [facility] Stop: 03/21/19 12:46 Hydralazine HCl (Apresoline -) 25 mg PO TID [facility] Last Admin: 03/21/19 05:37 Dose: 25 mg Sodium Chloride (Normal Saline -) 250 mls @ 3,000 mls/hr IV PRN PRN PRN Reason: Hypotension during Dialysis Stop: 03/22/19 10:45 Insulin Aspart (Novolog Vial Sliding Scale -) 1 vial SQ [facility]; Protocol Last Admin: 03/21/19 06:07 Dose: 4 unit Insulin Detemir (Levemir Vial) 10 units SQ DAILY@0700 [facility] Last Admin: 03/21/19 06:07 Dose: 10 units Insulin Detemir (Levemir Vial) 8 units SQ HS [facility] Last Admin: 03/20/19 21:15 Dose: 8 unit Latanoprost (Xalatan 0.005% Eye Drops -) 1 drop OS HS [facility] Last Admin: 03/20/19 21:24 Dose: 1 drop Lisinopril (Prinivil) 5 mg PO DAILY [facility] Last Admin: 03/20/19 10:31 Dose: 5 mg Loratadine (Claritin -) 10 mg PO DAILY [facility] Last Admin: 03/20/19 10:30 Dose: 10 mg Magnesium Oxide (Mag-Ox -) 400 mg PO DAILY [facility] Last Admin: 03/20/19 14:00 Dose: 400 mg Pantoprazole Sodium (Protonix -) 20 mg PO DAILY [facility] Last Admin: 03/20/19 10:30 Dose: 20 mg Polyethylene Glycol (Miralax (For Daily Use) -) 17 gm PO TID [facility] Last Admin: 03/21/19 05:38 Dose: 17 gm Senna (Senna -) 2 tab PO HS PRN PRN Reason: CONSTIPATION Sevelamer Carbonate (Renvela -) 2,400 mg PO CM [facility] Last Admin: 03/20/19 17:46 Dose: 2,400 mg 53 year old gentleman with history of ESRD on HD (MWF), CAD s/p CABG, CHF, hypertension, HLD, DM who presented with mechanical fall s/p dialysis and found to have tibial fracture. 1. Mechanical fall with tibial fracture 2. ESRD on HD 3. CAD/CHF 4. DM 6. HLD 7. CKD related anemia r/o bleed 8. Renal Osteodystrophy 9. Hypertension For dialysis with aggressive UF tdoay Renal diet, 1.2L fluid restriction Continue Lisinopril, Lasix 80mg daily Will give high dose Epogen with dialysis today Continue Renvela with meals for hyperphosphatemia and senspiar for secondary hyperparathyrodism discharge planning to rehab as per primary team Thank you Antwan Hurley DO
[2019-03-21 14:07] LABS: ALBUMIN 2.5 g/dl (3.4-5.0); ALK PHOS 334 U/L (45-117); ANION GAP 12 MMOL/L (8-16); BILIRUBIN,TOTAL 0.5 mg/dL (0.2-1); BLOOD UREA NITROGEN 70.8 mg/dL (7-18); CALCIUM 7.6 mg/dL (8.5-10.1); CHLORIDE 93 mmol/L (98-107); CO2 24 mmol/L (21-32); GAMMA GLUTAMYL TRANSPEPTIDASE 19 U/L (5-85); GLUCOSE,RANDOM 162 mg/dL (74-106); POTASSIUM 5.3 mmol/L (3.5-5.1); SGOT/AST 15 U/L (15-37); SGPT/ALT 10 U/L (13-61); SODIUM 130 mmol/L (136-145); TOT PROT 6.3 g/dl (6.4-8.2)
[2019-03-21 14:20] LABS: CREATININE 10.1 mg/dL (0.55-1.3)
[2019-03-21] MEDS: LISINOPRIL 5 MG TABLET (FP) PO SCH (15:33)
[2019-03-21] MEDS: FUROSEMIDE 40 MG TABLET (FP) PO SCH (15:33)
[2019-03-21] MEDS: PANTOPRAZOLE 20 MG TABLET PO SCH (15:33)
[2019-03-21] MEDS: ALLOPURINOL 100 MG TABLET (FP) PO SCH (15:34)
[2019-03-21] MEDS: FERROUS SO4 325 MG TABLET (FP) PO SCH (15:34)
[2019-03-21] MEDS: metoPROLOL SUCCINATE 25 MG TAB.SR.24H (FP) PO SCH (15:34)
[2019-03-21] MEDS: MAGNESIUM OXIDE 400 MG TABLET (FP) PO SCH (15:34)
[2019-03-21] MEDS: CINACALCET HCL 30 MG TAB (FP) PO SCH (15:34)
[2019-03-21] MEDS: ASPIRIN 81 MG CHEWABLE TABLETS PO SCH (15:34)
[2019-03-21] MEDS: LORATADINE 10 MG TABLET PO SCH (15:34)
[2019-03-21] MEDS: SEVELAMER CARBONATE 800 MG TAB (FP) PO SCH ×3 (15:35→17:50)
[2019-03-21] MEDS: BACITRACIN 15 GM TUBE TOPICAL OINTMENT TP SCH (15:36)
[2019-03-21] MEDS: HEPARIN NA (PORCINE) 5,000 UNITS/ML 1ML VIAL SQ SCH ×2 (15:39→21:47)
[2019-03-21] MEDS ORDERED: INSULIN (NOVOLOG) ASPART 100 UNITS/ML 10ML VIAL ONE (17:36)
[2019-03-21] MEDS: ATORVASTATIN CA 80 MG TABLET (FP) PO SCH (21:44)
[2019-03-21] MEDS: LATANOPROST 0.005% OPHTH SOLN 2.5ML BOTTLE OS SCH (21:54)
[2019-03-21 23:05] VITALS: BMI 37.3
[2019-03-22] MEDS: BRIMONIDINE TARTRATE 0.15% OPHTHALMIC 5 ML BOTTLE OS SCH ×2 (05:30→14:23)
[2019-03-22] MEDS: POLYETHYLENE GLYCOL 3350 119 GM BTL PO SCH ×2 (05:47→14:24)
[2019-03-22] MEDS: hydrALAZINE HCL 25 MG TABLET (FP) PO SCH ×2 (05:47→14:23)
[2019-03-22] MEDS: DORZOLAMIDE 2% HCL OPHTHALMIC SOLUTION 10 ML BOTTLE OS SCH ×2 (05:47→14:24)
[2019-03-22] MEDS: INSULIN (LEVEMIR) 100 UNITS/ML UNITS SQ SCH (06:30)
[2019-03-22] MEDS: INSULIN SLIDING SCALE (NOVOLOG) 1 VIAL SQ SCH ×3 (06:31→16:58)
--- NOTE | 2019-03-22 06:44 | PN ---
Progress Note, Physician Chief Complaint: in bed NAD no c/o awaiting bed to [facility] - Current Medication List Current Medications: Active Medications Acetaminophen (Tylenol -) 650 mg PO Q6H PRN PRN Reason: FEVER OR PAIN LEVEL 1-5 Last Admin: 03/21/19 04:00 Dose: 650 mg Allopurinol (Zyloprim -) 100 mg PO DAILY [facility] Last Admin: 03/21/19 15:34 Dose: 100 mg Aspirin (Asa -) 81 mg PO DAILY [facility] Last Admin: 03/21/19 15:34 Dose: 81 mg Atorvastatin Calcium (Lipitor -) 80 mg PO HS [facility] Last Admin: 03/21/19 21:44 Dose: 80 mg Bacitracin (Bacitracin -) 1 applic TP Q2D [facility] Last Admin: 03/21/19 15:36 Dose: 1 applic Brimonidine Tartrate (Alphagan 0.15% -) 1 drop OS TID [facility] Last Admin: 03/22/19 05:30 Dose: 1 drop Cinacalcet (Sensipar -) 30 mg PO DAILY [facility] Last Admin: 03/21/19 15:34 Dose: 30 mg Dorzolamide HCl (Trusopt 2%) 1 drop OS TID [facility] Last Admin: 03/22/19 05:47 Dose: 1 drop Ferrous Sulfate (Feosol -) 325 mg PO DAILY [facility] Last Admin: 03/21/19 15:34 Dose: 325 mg Furosemide (Lasix -) 80 mg PO DAILY [facility] Last Admin: 03/21/19 15:33 Dose: 80 mg Heparin Sodium (Porcine) (Heparin -) 5,000 unit SQ BID [facility] Last Admin: 03/21/19 21:47 Dose: 5,000 unit Hydralazine HCl (Apresoline -) 25 mg PO TID [facility] Last Admin: 03/22/19 05:47 Dose: 25 mg Sodium Chloride (Normal Saline -) 250 mls @ 3,000 mls/hr IV PRN PRN PRN Reason: Hypotension during Dialysis Stop: 03/22/19 10:45 Insulin Aspart (Novolog Vial Sliding Scale -) 1 vial SQ [facility]; Protocol Last Admin: 03/22/19 06:31 Dose: 2 unit Insulin Detemir (Levemir Vial) 10 units SQ DAILY@0700 [facility] Last Admin: 03/22/19 06:30 Dose: 10 units Insulin Detemir (Levemir Vial) 8 units SQ HS [facility] Last Admin: 03/21/19 21:49 Dose: 8 unit Latanoprost (Xalatan 0.005% Eye Drops -) 1 drop OS HS [facility] Last Admin: 03/21/19 21:54 Dose: 1 drop Lisinopril (Prinivil) 5 mg PO DAILY [facility] Last Admin: 03/21/19 15:33 Dose: 5 mg Loratadine (Claritin -) 10 mg PO DAILY [facility] Last Admin: 03/21/19 15:34 Dose: 10 mg Magnesium Oxide (Mag-Ox -) 400 mg PO DAILY [facility] Last Admin: 03/21/19 15:34 Dose: 400 mg Metoprolol Succinate (Toprol Xl -) 12.5 mg PO DAILY [facility] Last Admin: 03/21/19 15:34 Dose: 12.5 mg Pantoprazole Sodium (Protonix -) 20 mg PO DAILY [facility] Last Admin: 03/21/19 15:33 Dose: 20 mg Polyethylene Glycol (Miralax (For Daily Use) -) 17 gm PO TID [facility] Last Admin: 03/22/19 05:47 Dose: Not Given Senna (Senna -) 2 tab PO HS PRN PRN Reason: CONSTIPATION Sevelamer Carbonate (Renvela -) 2,400 mg PO CM [facility] Last Admin: 03/21/19 17:50 Dose: 2,400 mg - Objective Vital Signs: Vital Signs Temperature 98.1 F 03/22/19 05:33 Pulse Rate 89 03/22/19 05:33 Respiratory Rate 20 03/22/19 05:33 Blood Pressure 132/71 03/22/19 05:33 O2 Sat by Pulse Oximetry (%) 100 03/21/19 21:00 Constitutional: Yes: No Distress, Calm Eyes: Yes: Conjunctiva Clear HENT: Yes: Atraumatic Neck: Yes: Supple Cardiovascular: Yes: Regular Rate and Rhythm Respiratory: Yes: CTA Bilaterally Gastrointestinal: Yes: Soft. No: Tenderness Genitourinary: No: Hematuria Musculoskeletal: No: Joint Stiffness, Joint Swelling Extremities: No: Cold, Cool, Cyanosis Edema: No Integumentary: No: Rash, Venous Stasis Changes Neurological: Yes: Alert, Oriented ...Motor Strength: WNL Psychiatric: Yes: Alert, Oriented. No: Agitated, Suicidal Ideation Labs: CBC, BMP 03/21/19 11:20 03/21/19 11:20 INR, PTT INR 1.09 (0.83-1.09) 03/14/19 15:46 - ....Imaging Other: Report Reviewed Assessment/Plan 53 yo M with a hx of HTN, HLD, DM, asthma, CHF (normal EF%, poor LV compliance) , ESRD MWF with left AVF, CAD s/p CABG (2010; stent), GERD, and amputation of the left metatarsal presents to the emergency department s/p mechanical fall with right ankle pain. Found to have R ankle fracture, cast placed per ortho; small amnt RBRPR constipation seen by GI; atypical CP cleared by cardiology awaiting SNF in a [place] with HD pain meds; DVT pfx; d/w pt and staff
[2019-03-22] MEDS: SEVELAMER CARBONATE 800 MG TAB (FP) PO SCH ×3 (09:40→16:58)
[2019-03-22] MEDS: FERROUS SO4 325 MG TABLET (FP) PO SCH (09:40)
[2019-03-22] MEDS: MAGNESIUM OXIDE 400 MG TABLET (FP) PO SCH (09:41)
[2019-03-22] MEDS: metoPROLOL SUCCINATE 25 MG TAB.SR.24H (FP) PO SCH (09:41)
[2019-03-22] MEDS: ALLOPURINOL 100 MG TABLET (FP) PO SCH (09:41)
[2019-03-22] MEDS: ASPIRIN 81 MG CHEWABLE TABLETS PO SCH (09:41)
[2019-03-22] MEDS: PANTOPRAZOLE 20 MG TABLET PO SCH (09:41)
[2019-03-22] MEDS: FUROSEMIDE 40 MG TABLET (FP) PO SCH (09:41)
[2019-03-22] MEDS: LORATADINE 10 MG TABLET PO SCH (09:41)
[2019-03-22] MEDS: CINACALCET HCL 30 MG TAB (FP) PO SCH (09:41)
[2019-03-22] MEDS: HEPARIN NA (PORCINE) 5,000 UNITS/ML 1ML VIAL SQ SCH (09:55)
[2019-03-22] MEDS: LISINOPRIL 5 MG TABLET (FP) PO SCH (09:56)
--- NOTE | 2019-03-22 11:58 | PN ---
Progress Note (short form) - Note Progress Note: Renal follow up for ESRD on HD Seen and examined at the bedside no acute complaints denies any fever, chills, shortness of breath, chest pain or leg pain Vital Signs Temperature 98.1 F 03/22/19 05:33 Pulse Rate 89 03/22/19 05:33 Respiratory Rate 03/22/19 05:33 Blood Pressure 132/71 03/22/19 05:33 O2 Sat by Pulse Oximetry (%) 100 03/21/19 21:00 Intake & Output 03/19/19 03/20/19 03/21/19 03/22/19 23:59 23:59 23:59 23:59 Intake Total 0513 840 9061 1116 Output Total 2600 3900 Balance -800 580 -2540 1116 Weight 107.7 kg 104.326 kg 104.78 kg 104.44 kg NAD RRR, no M/R CTA, no rales or wheeze soft, obese, NT/ND no LE edema left arm AVF Right leg in cast CBC, BMP 03/21/19 11:20 03/21/19 11:20 Current Medications Acetaminophen (Tylenol -) 650 mg PO Q6H PRN PRN Reason: FEVER OR PAIN LEVEL 1-5 Last Admin: 03/21/19 04:00 Dose: 650 mg Allopurinol (Zyloprim -) 100 mg PO DAILY [facility] Last Admin: 03/22/19 09:41 Dose: 100 mg Aspirin (Asa -) 81 mg PO DAILY [facility] Last Admin: 03/22/19 09:41 Dose: 81 mg Atorvastatin Calcium (Lipitor -) 80 mg PO HS [facility] Last Admin: 03/21/19 21:44 Dose: 80 mg Bacitracin (Bacitracin -) 1 applic TP Q2D [facility] Last Admin: 03/21/19 15:36 Dose: 1 applic Brimonidine Tartrate (Alphagan 0.15% -) 1 drop OS TID [facility] Last Admin: 03/22/19 05:30 Dose: 1 drop Cinacalcet (Sensipar -) 30 mg PO DAILY [facility] Last Admin: 03/22/19 09:41 Dose: 30 mg Dorzolamide HCl (Trusopt 2%) 1 drop OS TID [facility] Last Admin: 03/22/19 05:47 Dose: 1 drop Ferrous Sulfate (Feosol -) 325 mg PO DAILY [facility] Last Admin: 03/22/19 09:40 Dose: 325 mg Furosemide (Lasix -) 80 mg PO DAILY [facility] Last Admin: 03/22/19 09:41 Dose: 80 mg Heparin Sodium (Porcine) (Heparin -) 5,000 unit SQ BID [facility] Last Admin: 03/22/19 09:55 Dose: 5,000 unit Hydralazine HCl (Apresoline -) 25 mg PO TID [facility] Last Admin: 03/22/19 05:47 Dose: 25 mg Insulin Aspart (Novolog Vial Sliding Scale -) 1 vial SQ [facility]; Protocol Last Admin: 03/22/19 11:55 Dose: 4 unit Insulin Detemir (Levemir Vial) 10 units SQ DAILY@0700 [facility] Last Admin: 03/22/19 06:30 Dose: 10 units Insulin Detemir (Levemir Vial) 8 units SQ HS [facility] Last Admin: 03/21/19 21:49 Dose: 8 unit Latanoprost (Xalatan 0.005% Eye Drops -) 1 drop OS HS [facility] Last Admin: 03/21/19 21:54 Dose: 1 drop Lisinopril (Prinivil) 5 mg PO DAILY [facility] Last Admin: 03/22/19 09:56 Dose: 5 mg Loratadine (Claritin -) 10 mg PO DAILY [facility] Last Admin: 03/22/19 09:41 Dose: 10 mg Magnesium Oxide (Mag-Ox -) 400 mg PO DAILY [facility] Last Admin: 03/22/19 09:41 Dose: 400 mg Metoprolol Succinate (Toprol Xl -) 12.5 mg PO DAILY [facility] Last Admin: 03/22/19 09:41 Dose: 12.5 mg Pantoprazole Sodium (Protonix -) 20 mg PO DAILY [facility] Last Admin: 03/22/19 09:41 Dose: 20 mg Polyethylene Glycol (Miralax (For Daily Use) -) 17 gm PO TID [facility] Last Admin: 03/22/19 05:47 Dose: Not Given Senna (Senna -) 2 tab PO HS PRN PRN Reason: CONSTIPATION Sevelamer Carbonate (Renvela -) 2,400 mg PO CM [facility] Last Admin: 03/22/19 11:56 Dose: 2,400 mg 53 year old gentleman with history of ESRD on HD (MWF), CAD s/p CABG, CHF, hypertension, HLD, DM who presented with mechanical fall s/p dialysis and found to have tibial fracture. 1. Mechanical fall with tibial fracture 2. ESRD on HD 3. CAD/CHF 4. DM 6. HLD 7. CKD related anemia r/o bleed 8. Renal Osteodystrophy 9. Hypertension No acute need for dialysis today. Next planned treatment is to resume TTS schedule. Renal diet, 1.2L fluid restriction Continue Lisinopril, Lasix 80mg daily Will give high dose Epogen with dialysis today Continue Renvela with meals for hyperphosphatemia and senspiar for secondary hyperparathyrodism discharge planning to rehab as per primary team Thank you Antwan Hurley DO
[2019-03-22 18:14] VITALS: BP 135/65; PULSE 88; TEMP 98.5
== END 2019-03-22 19:45 | DRG 562 ==
LOC: JER 12:12 → SUPCPDRO 12:12 → JERBED 17:20 → J8W 03-15 19:03 → J6S 03-16 13:57
PROVIDERS: ADMIT Specialist; ATTEND Specialist
PROC: 2W3RX2Z Immobilization of Left Lower Leg using Cast (ICD-10-PCS; principal; 2019-03-14)
PROC: 5A1D70Z Performance of Urinary Filtration, Intermittent, Less than 6 Hours Per Day (ICD-10-PCS; 2019-03-16)
PROC: 5A1D70Z Performance of Urinary Filtration, Intermittent, Less than 6 Hours Per Day (ICD-10-PCS; 2019-03-18)
PROC: 30233N1 Transfusion of Nonautologous Red Blood Cells into Peripheral Vein, Percutaneous Approach (ICD-10-PCS; 2019-03-18)
PROC: 5A1D70Z Performance of Urinary Filtration, Intermittent, Less than 6 Hours Per Day (ICD-10-PCS; 2019-03-19)
PROC: 5A1D70Z Performance of Urinary Filtration, Intermittent, Less than 6 Hours Per Day (ICD-10-PCS; 2019-03-21)
DX: S82.871A Displaced pilon fracture of right tibia, initial encounter for closed fracture (principal); N18.6 End stage renal disease; I13.2 Hypertensive heart and chronic kidney disease with heart failure and with stage 5 chronic kidney disease, or end stage renal disease; I50.32 Chronic diastolic (congestive) heart failure; J90 Pleural effusion, not elsewhere classified; E78.5 Hyperlipidemia, unspecified; E11.9 Type 2 diabetes mellitus without complications; I25.10 Atherosclerotic heart disease of native coronary artery without angina pectoris; K21.9 Gastro-esophageal reflux disease without esophagitis; F41.9 Anxiety disorder, unspecified; M10.9 Gout, unspecified; R50.9 Fever, unspecified; R07.89 Other chest pain; N25.0 Renal osteodystrophy; K64.9 Unspecified hemorrhoids; E66.9 Obesity, unspecified; Z68.37 Body mass index [BMI] 37.0-37.9, adult; K63.5 Polyp of colon; K59.09 Other constipation; H54.7 Unspecified visual loss; W18.39XA Other fall on same level, initial encounter; Y92.89 Other specified places as the place of occurrence of the external cause; E11.22 Type 2 diabetes mellitus with diabetic chronic kidney disease; Z99.2 Dependence on renal dialysis; Z95.1 Presence of aortocoronary bypass graft; Z89.432 Acquired absence of left foot; Z22.322 Carrier or suspected carrier of Methicillin resistant Staphylococcus aureus
CPT/HCPCS: 36415; 36430; 71045-TC-FY; 71250-TC; 72170-TC-FY; 73562-TC-RT-FY; 73610-TC-RT-FY; 73630-TC-RT-FY; 80048; 80053; 82272; 82550; 82553; 82962; 82977; 83735; 84100; 84484; 85025; 85027; 85610; 86803; 86850; 86900; 86901; 86922; 87040; 87340; 93005; 93010; 99284-25; G0480; J0885; J1644; J1756; P9058